=== PATIENT | male | born 1960 | race Caucasian/White ===

== ENCOUNTER 2020-03-22 16:32 | Inpatient (IN) | payer OTHER, SELFPAY ==
[2020-03-22] VITALS (24 sets, daily range): BP systolic 97–134; BP diastolic 46–104; PULSE 60–85; RESP 17–22; TEMP 36.2–36.7; O2SAT 23–99; BMI 25.6; BMI 25.0
--- NOTE | 2020-03-22 16:36 | EKG12_ITS ---
Test Reason : STEMI Blood Pressure : / mmHG Vent. Rate : 071 BPM Atrial Rate : 071 BPM P-R Int : 000 ms QRS Dur : 090 ms QT Int : 390 ms P-R-T Axes : 000 060 095 degrees QTc Int : 423 ms Normal sinus rhythm ST elevation consider inferolateral injury or acute infarct ACUTE RI / STEMI Consider right ventricular involvement in acute inferior infarct Abnormal ECG Confirmed by ARAMIS OSBORNE, FOREIGN ([id number]), editor sound LAUREN BERMEO ([id number]) on 03/23/2020 11:20:38 AM Referred By: Alfonso Taylor Confirmed By:FOREIGN SELF MD
--- NOTE | 2020-03-22 16:37 | ED.DCSUM_ITS ---
History of Present Illness Chief Complaint: Chest Pain Informant: Patient, EMS Onset: - - 30 minutes prior to EMS arrival Activity at onset: Rest Timing: Continuous Quality: Pain Location: Substernal - With radiation into both upper extremities Current Severity: Gone - Chest pain resolved, but still with mild bilateral upper extremity pain Maximum Severity: Severe Worsened By: Nothing. Not Worsened By: Breathing Relieved By: NTG - Imes 1 given by EMS Associated Symptoms: Nausea, Dyspnea. Negative for: Vomiting, Diaphoresis, Cough, Lightheadedness, Palpitations Narrative: 60-year-old smoker who does not see a physician started having chest pain at rest 30 minutes prior to EMS arrival. They sent a prehospital EKG showing an inferior STEMI, and the team was activated prehospital. CVD Risk Factors: Smoking Past Medical History - Allergies and Home Meds Allergies/Adverse Reactions: Allergies No Known Allergies Allergy (Verified 03/22/20 16:37) Past Medical History: None Lives: Spouse/ Significant Other Smoking Status: Current every day smoker Review of Systems General: Reports: Malaise. Denies: Chills, Fever, Sweats Eyes: Denies: Visual changes - bilaterally, Diplopia ENT: Denies: Rhinorrhea, Sore throat Cardiovascular: Reports: Chest pain. Denies: Palpitations Respiratory: Reports: Dyspnea. Denies: Cough, Dyspnea on exertion Gastrointestinal: Denies: Abdominal pain, Nausea, Vomiting, Diarrhea, Melena, Hematochezia Genitourinary: Denies: Dysuria, Hematuria, Frequency Musculoskeletal: Reports: Extremity Pain. Denies: Myalgias, Back pain Skin: Denies: Rash, Wounds Neurological: Denies: Headache, Weakness, Numbness Physical Exam Inital Vital Signs reviewed: Yes General: Well nourished, Well developed, No Acute Distress - Well-appearing, conversive Head: Normocephalic, Atraumatic Eyes: Perrl, EOMI ENT: Moist mucous membranes, No rhinorrhea Neck: Supple, Nontender, No lymphadenopathy Cardiovascular: Regular rate, Regular rhythm, No murmurs, Bradycardia - Borderline Respiratory: No distress, CTA bilaterally, Chest nontender Abdomen: Soft, Nontender, Nondistended, Normal bowel sounds Back: Nontender, Normal Inspection Extremities: Nontender, No edema. Negative for: Calf Tenderness Skin: Normal color, No rash Neurological: Alert, Oriented x3, Cranial nerves II-XII grossly intact, Normal Strength, Normal Sensation Psychological: Normal affect, Normal Mood Diagnostic/Tx/Re-eval - Rhythm Strip Rhythm Strip: Sinus Rhythm Rate: 55 Ectopy: None - EKG Initial EKG Interpretation: Sinus Rhythm, S-T Elevation - Inferior with anteroseptal reciprocal changes Prior: No Prior Treatment: Aspirin - Given prior to arrival by EMS, NTG SL - Given prior to arrival x1, - - Zofran given prior to arrival. Brilinta, heparin injection given in ER along with IV fluid bolus. ALCY Risk: ST Deviation >/= 0.5mm Score: 1 - Medical Decision Making Patient declined morphine for his arm pain. He was given IV fluids, Brilinta load, heparin 4000 units. Director Television [employer] ready, patient clinically and hemodynamically stable. Discussed with Dr. Taylor. Critical care time (excluding procedures): 30-74 minutes - 31 minutes, including time spent discussing with patient, consultants, arranging admission, and performing direct patient care/evaluation at the bedside ED Disposition - Plan for ED Patient: Disposition: Acute Care Hospital [facility] Diagnosis: STEMI (ST elevation myocardial infarction)
[2020-03-22 16:54] LABS: Absolute Lymphocyte Count 5.34 X10^3/uL (0.83-4.51); Absolute Neutrophil Count 5.9 X10^3/uL (2.0-7.7); Basophil# 0.07 X10^3/uL; Basophil% 0.5 % (0-1); Eosinophil# 0.32 X10^3/uL; Eosinophils% 2.5 % (0-5); Hematocrit 43.4 % (40-54); Hemoglobin 14.8 g/dL (13.0-16.5); Lymphocyte # 5.34 X10^3/ul (4.0); Lymphocyte % 41.8 % (19-41); Mean Corp Hgb Conc 34.1 g/dL (32-36); Mean Corpuscular Hgb 32.2 pg (27.0-32.0); Mean Corpuscular Volume 94.3 fL (80-94); Mean Platelet Vol. 9.6 fl (6.2-12.0); Monocyte% 8.6 % (0-10); NRBC Flagged by Analyzer 0 % (0-5); Neutrophil # 5.88 X10^3/uL (2.7-7.7); Neutrophil % 46.1 % (47-70); POSITIVE DIFFERENTIAL YES; POSITIVE MORPHOLOGY YES; Platelet Count 256 K/mm3 (150-450); RBC Distribution Width CV 12.3 % (11.6-14.6); RBC Distribution Width SD 42.5 fl (35.1-43.9); White Blood Count 12.8 K/mm3 (4.4-11.0)
[2020-03-22 17:03] LABS: Differential Indicated SCAN CRITERIA MET
[2020-03-22 17:05] LABS: Anion Gap 7 (5-15); BUN 20 mg/dL (7-18); BUN/Creat Ratio 18.7 RATIO (10-20); Calcium,Total 8.6 mg/dL (8.5-10.1); Chloride 106 mmol/L (98-107); Creatinine, Serum 1.07 mg/dL (0.70-1.30); EST Glomerular Filtration Rate 75 mL/min (>60); Est Glom Filt Rate - Afr Amer 90 mL/min (>60); Glucose 128 mg/dL (74-106); Potassium 3.3 mmol/L (3.5-5.1); Sodium Level 139 mmol/L (136-145)
--- NOTE | 2020-03-22 17:59 | ECHOD_ITS ---
Reason For Study: CAD/ASHD Procedure This was a 2D Doppler, Color Flow transthoracic echocardiogram. Exam performed portable in ICU/CCU. Left Ventricle Left ventricular systolic function is normal. Normal diastology for age. Normal LA filling pressure. The estimated ejection fraction is 55 %. Infero-Basal: Hypokinetic. Mid-inferoseptal : Hypokinetic. Right Ventricle Normal right ventricle. Normal systolic function. Atria Normal left atrium. Normal right atrium. Mitral Valve Mild (1+) mitral valve insufficiency. Tricuspid Valve Mild tricuspid valve insufficiency. Pulmonary artery systolic pressure is 35 mmHg. Normal pulmonary artery pressure. Aortic Valve Normal aortic valve. Pulmonic Valve Normal pulmonic valve. Great Vessels Normal inferior vena cava. Pericardium/Pleural No pericardial effusion. MMode/2D Measurements & Calculations LVIDd: 5.6 cm IVSd: 1.0 cm Ao root diam: 3.1 cm LVIDs: 3.5 cm LVPWd: 1.1 cm RVDd: 3.5 cm FS: 37.9 % LAV(MOD-bp): 48.6 ml LA A4 area: 17.4 cm2 LA dimension(2D): 3.8 cm LAV(MOD-bp) Indexed: 25.2 ml/m2 LAV(MOD-sp2): 47.1 ml LAV(MOD-sp4): 48.1 ml RA A4 area: 13.7 cm2 Time Measurements MV dec time: 0.18 sec Doppler Measurements & Calculations MV E max kumar: 70.7 cm/sec Lat Peak E' Kumar: 9.7 cm/sec Med Peak E' Kumar: 7.6 cm/sec MV A max kumar: 83.3 cm/sec E/E' lat: 7.3 E/E' med: 9.3 MV E/A: 0.85 Ao V2 max: 178.8 cm/sec LV V1 max: 90.9 cm/sec PA V2 max: 92.3 cm/sec Ao max P.8 mmHg LV V1 max P.3 mmHg Ao V2 mean: 114.7 cm/sec Ao mean P.9 mmHg Ao V2 VTI: 30.5 cm TR max kumar: 271.5 cm/sec TR max P.5 mmHg Interpretation Summary Left ventricular systolic function is normal. Normal diastology for age. Normal LA filling pressure The estimated ejection fraction is 55 %. Mild (1+) mitral valve insufficiency. Mild tricuspid valve insufficiency. Normal pulmonary artery pressure. Infero-Basal: Hypokinetic Mid-inferoseptal : Hypokinetic Ordering Physician: Alfonso Taylor Referring Physician: NO PCP Performed By: Jerri Elise, FLAKITO, RVT
--- NOTE | 2020-03-22 18:02 | PCM.HP.CAR ---
History of Present Illness Date of Admission: 03/22/20 Chief Complaint: Chest pain The patient is a 60 year old M 3 hours prior to admission developed severe substernal pain associated with shortness of breath. At that time he was just resting. He never had this pain happened to him before. Ambulance arrived and found him to have acute inferior wall myocardial infarct. Hemodynamically stable. He will transfer to the emergency room and subsequently to the Aquatic Physiotherapist for STEMI protocol. He denies any history of hypertension, diabetes or hyperlipidemia. He is a heavy smoker and drinks occasionally . 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 There has been no family history of early cardiovascular disease. Patient denies any drug use [] Past Medical History Allergies/Adverse Reactions: Allergies No Known Allergies Allergy (Verified 03/22/20 16:37) Home Medications: Ambulatory Orders Medication Instructions Recorded NK 03/22/20 Surgical History: no surgical history Psychiatric History: No pertinent psych hx Lives: Spouse/ Significant Other Smoking Status: Current every day smoker Alcohol: Occasional Drugs: None Review of Systems - Review of Systems General: Denies: Fever, Night Sweats, Fatigue HEENT: Denies: Vision Change Cardiovascular: Denies: Chest Discomfort, Shortness of Breath, Orthopnea, PND, Peripheral Edema, Palpitations, Lightheadedness, Dizziness, Near Syncope, Syncope Respiratory: Denies: Cough, Sputum Production, Hemoptysis Gastrointestinal: Denies: Hematemesis, Hematochezia, Melena Genitourinary: Denies: Dysuria, Hematuria Muscoloskeletal: Denies: Myalgias Skin: Denies: Rash Psychiatric: Denies: Anxiety, Depression Endocrine: Denies: Heat Intolerance Hematologic/ Lymphatic: Denies: Lymph Node Enlargement Objective: Vital Signs Temp Pulse Resp BP Pulse Ox 97.2 F L 62 17 120/80 98 03/22/20 16:44 03/22/20 16:44 03/22/20 16:44 03/22/20 16:44 03/22/20 16:44 Oxygen Flow Rate (L/min) 2 Oxygen Delivery Method Room Air Weight: 173 lb 8.061 oz Body Mass Index (BMI) 25.6 General: Healthy Appearing, - - Complaint of substernal chest pain 10 out of 10 HEENT: PERRL, EOMI, Sclera Non Icteric Neck: Supple Lungs: Clear to auscultation Cardiovascular: Regular Rhythm, Normal S1, Normal S2, No Murmurs, No Rubs, No Gallops Vascular: No Carotid Bruits, Normal Femoral Pulses, Normal Radial Pulses, Normal Dorsalis Pedal Pulse, Normal Posterior Tibial Pulses Abdomen: Bowel Sounds Present, Soft, Non Tender, No HSM, No Organomegaly Extremities: No edema Musculoskeletal: No Erythema, No Warmth, No Tenderness Skin: No Rashes Lymphatic: No Lymph Node Enlargement Neurological: No Focal Motor or Sensory Deficit Psych/Mental Status: Appropriate, Normal Affect VTE Information - Inpt Only VTE Present on Admission: No - Patient will undergo cardiac catheterization VTE Mechan Device Prophylaxis: SCD's - none VTE Pharm Prophylaxis ordered?: No Reason prophylaxis not ordered:: Treatment Not Indicated 03/22/20 16:35: WBC 12.8 H, RBC 4.60, Hgb 14.8, Hct 43.4, MCV 94.3 H, MCH 32.2 H, MCHC 34.1, Plt Count 256, MPV 9.6, Immature Gran % (Auto) 0.500, Neut % (Auto) 46.1 L, Lymph % (Auto) 41.8 H, Lander % (Auto) 8.6, Eos % (Auto) 2.5, Baso % (Auto) 0.5, Absolute Neuts (auto) 5.9, Nucleated RBC % 0 03/22/20 16:35: PT Cancelled, INR Cancelled, APTT Cancelled 03/22/20 16:35: Sodium 139, Potassium 3.3 L, Chloride 106, Carbon Dioxide 26.0, Anion Gap 7, BUN 20 H, Creatinine 1.07, Est GFR (MDRD) Af Amer 90, Est GFR (MDRD) Non-Af 75, BUN/Creatinine Ratio 18.7, Glucose 128 H, Calcium 8.6, Troponin I 0.022 Rhythm: Normal sinus rhythm EKG: Acute inferior wall myocardial infarct ECHO: Stress Test: Cardiac Cath: See dictated note PCI: See dictated note CT Surgery: Holter monitor: EPS: PPM: CXR: Pending Chest CT Scan: Assessment/Plan #1 acute inferior wall myocardial infarct, patient is a suitable candidate for STEMI protocol. The risk has been explained to the patient. He has signed the consent. #2 history of heavy cigarette consumption, will encourage him to quit smoking, nicotine cessation therapy as needed
[2020-03-22 18:15] LABS: Differential Comment SCANNED; Platelet Estimate ADEQUATE (ADEQ); Red Cell Morphology NORM C+C NORMAL (NORM C&C)
[2020-03-22 18:16] LABS: ACT Activated Clotting Time 230 sec (74-137)
--- NOTE | 2020-03-22 18:20 | CL.PCI_ITS ---
PCI Cardiac Cath Report PCI Report: Procedure: March 22, 2020 Clinical history: 60-year-old white male with acute inferior wall myocardial in farky Indication: Acute inferior wall myocardial infarct with functional class IV angina Heart failure: None Stress/imaging: No CAD presentation: Acute inferior wall myocardial infarct with functional class IV angina Summary: #1 successful stenting of the proximal and mid right coronary artery, occluded proximal right coronary artery with LACY 0 flow. Post PCI, residual stenosis was 0%. LACY-3 flow was reestablished. Type C lesion #2 minimally impaired left ventricular systolic wall motion #3 moderate ostial major diagonal branch stenosis #4 patient will undergo lifestyle modification. He will be on aspirin, Effient, statin and low-dose beta-evelyn. Will be encouraged to quit smoking Procedure Details The risks, benefits, complications, treatment options, and expected outcomes were discussed with the patient. The patient and/or family concurred with the proposed plan, giving informed consent. Patient was brought to the labor training manager after IV hydration . Patient was further sedated with IV conscious sedation. Subject was prepped and draped in the usual manner. Using the modified Seldinger access technique, a 6 Wolof sheath was placed in the right radial. Standard diagnostic catheters were used. Exchanges were performed over J-wire. At the end of the procedures, all catheters and sheaths were removed and bleeding was stopped with closure device using TR band Findings: Left ventriculogram: Left ventricle was normal in size with mild inferior wall hypokinesis Moderate Sedation: No sedation was given Hemodynamics: 100/70, 70/min with frequent PAC, left ventricular end-diastolic pressure was 15, there was no gradient seen across the aortic valve. Ejection fraction was 55% Comments: Normal ejection fraction and left ventricular end-diastolic pressure Coronary Anatomy: Right dominant Left Main : Normal LAD: Normal in caliber and reaches the apex for short distance. It was free of significant disease. First major diagonal branch had a 50% ostial stenosis otherwise he was free of significant disease Diagonals : As stated above Circumflex : Left circumflex was a normal sized vessel and free of significant disease Major Obtuse Marginals : 2 obtuse marginal branches were normal in caliber and free of significant disease Right Coronary Artery: Right coronary artery was occluded proximally with no sxey-dl-utyna collateral. After successful PCI of the proximal to mid right coronary artery, the distal right coronary artery were large in caliber and free of significant disease Intervention Lesion: Stenting of the occluded proximal right coronary artery Guiding Catheter used 6 Wolof AR-1 Guide Wire used: Run-through balloon used: Emerge: 2.0x12, 2.5x20 stents Used: Synergy: 3.5x24, 3.5x12 Procedure in detail: The guidewire had no difficulty passing down the distal right coronary artery. The occluded proximal right coronary artery was dilated with a 2.0 at 20 therese. This was followed by the 2.5 balloon at 18 therese. The long stent was then deployed at 16 therese. The shorter stent was then deployed proximal to it at 16 therese. Residual stenosis was 0%. LACY-3 flow was reestablished Estimated Blood Loss: Minimal} Complications: There was transient bradycardia and hypotension responded to IV normal saline, atropine and Brian-Synephrine. Patient has been sent to the intensive care unit on low-dose IV dopamine. Patient chest pain has disappeared upon discharge from the cardiac catheterization laboratory in stable condition Disposition condition: Stable
--- NOTE | 2020-03-22 18:31 | EKG12_ITS ---
Test Reason : AM EKG Blood Pressure : / mmHG Vent. Rate : 062 BPM Atrial Rate : 062 BPM P-R Int : 162 ms QRS Dur : 080 ms QT Int : 398 ms P-R-T Axes : 053 -12 038 degrees QTc Int : 403 ms Normal sinus rhythm Abnormal ECG When compared with ECG of 22-MAR-2020 18:05, MANUAL COMPARISON REQUIRED, DATA IS UNCONFIRMED Confirmed by ARAMIS OSBORNE, FOREIGN ([id number]), editor index LAUREN BERMEO ([id number]) on 03/27/2020 9:35:20 AM Referred By: Alfonso Taylor Confirmed By:FOREIGN SELF MD
--- NOTE | 2020-03-22 18:40 | PCM.HP.STD ---
History of Present Illness Date of Admission: 03/22/20 Chief Complaint: Chest pain The patient is a 60 year old M with a PMH as below presents to the hospital with substernal chest pain with shortness of breath. When it occurred he was resting after exerting himself. [place] he made a trip down the hill to bury some garbage and then when he came back to the house he found some turkey bone that he had the [place] so he walked back down the hill and dug another hole and buried the turkey bone and then he walked back up the hill to the house and he took his boots off and he said that he felt hot and then he sat on the couch and that is when he developed the chest pain. He called 911 and when EMS arrived they did an EKG which demonstrated an acute inferior wall NV. He was hemodynamically stable and a STEMI alert was called and he was taken straight to the Bottling Line Attendant. He had a stent placed at the proximal right coronary artery and his chest pain has resolved post stenting. In the ER his troponin was unremarkable. He denies any medical history simply because he has not seen a doctor in 30 years. Past Medical History Allergies No Known Allergies Allergy (Verified 03/22/20 16:37) Home Medications: Ambulatory Orders Medication Instructions Recorded NK 03/22/20 Surgical History: no surgical history Psychiatric History: No pertinent psych hx Lives: Spouse/ Significant Other Smoking Status: Current every day smoker Tobacco Use: Cigarettes Alcohol: Occasional Drugs: None - *Family History Maternal History Items: - - Suicide Paternal History Items: Cancer Review of Systems Constitutional: Denies: Chills, Fever, Weight Change HEENT: Denies: Head Aches, Sinus Congestion, Sinus Drainage Cardiovascular: Reports: Chest Pain. Denies: Palpitations Respiratory: Reports: Shortness of Breath. Denies: Cough, Shortness of breath at rest, Sputum production Gastrointestinal: Denies: Abdominal Pain, Nausea, Vomiting Genitourinary: Denies: Dysuria Musculoskeletal: Denies: Joint Pain, Joint Tenderness Skin: Denies: Rash, Wounds Neurological: Denies: Numbness, Tingling, Focal weakness Psychiatric: Denies: Anxiety, Depression, Homicidal Ideations, Suicidal Ideations Hematologic/ Lymphatic: Denies: Easy Bruising, Easy Bleeding VTE Information - Inpt Only VTE Present on Admission: No - Physical Exam Vitals/I&O's: Vital Signs Temp Pulse Resp BP Pulse Ox 97.2 F L 77 17 120/80 98 03/22/20 16:44 03/22/20 18:05 03/22/20 16:44 03/22/20 16:44 03/22/20 16:44 Oxygen Flow Rate (L/min) 2 Oxygen Delivery Method Room Air Weight: 173 lb 8.061 oz Body Mass Index (BMI) 25.6 General: Alert, Oriented x3, Cooperative, No apparent distress HEENT: Atraumatic, PERRLA, EOMI, Normocephalic Oral: Moist Mucosa Neck: Supple, No JVD Lungs: Clear to auscultation, Normal air movement, No rhonchi, No wheeze, No rales Cardiovascular: Regular rate, Regular Rhythm, Normal S1, Normal S2, No murmurs Abdomen: Soft, Non Tender, Non-Distended, No Hepato-splenomegaly Extremities: No edema, Capillary Refill Less than 3 Seconds Skin: No rashes, No breakdown Neurological: Neuro grossly intact, Sensory exam intact to light touch and pain Psych/Mental Status: Normal Affect, Appropriate Laboratory Results 03/22/20 16:35: WBC 12.8 H, RBC 4.60, Hgb 14.8, Hct 43.4, MCV 94.3 H, MCH 32.2 H, MCHC 34.1, RDW Std Deviation 42.5, RDW Coeff of Marcos 12.3, Plt Count 256, MPV 9.6, Immature Gran % (Auto) 0.500, Neut % (Auto) 46.1 L, Lymph % (Auto) 41.8 H, Garvin % (Auto) 8.6, Eos % (Auto) 2.5, Baso % (Auto) 0.5, Absolute Neuts (auto) 5.9, Absolute Lymphs (auto) 5.34 H, Nucleated RBC % 0, Differential Comment SCANNED, Diff Path Review May foll, Platelet Estimate ADEQUATE, RBC Morphology NORM C+C 03/22/20 16:35: PT Cancelled, INR Cancelled, APTT Cancelled 03/22/20 16:35: Sodium 139, Potassium 3.3 L, Chloride 106, Carbon Dioxide 26.0, Anion Gap 7, BUN 20 H, Creatinine 1.07, Estim Creat Clear Calc 72.50, Est GFR (MDRD) Af Amer 90, Est GFR (MDRD) Non-Af 75, BUN/Creatinine Ratio 18.7, Glucose 128 H, Calcium 8.6, Troponin I 0.022 03/22/20 17:12: Activated Clotting Time 230 H Current Medications Aspirin (Aspirin E.C. 81 Mg Tablet) 81 mg PO DAILY@0800 NUSRAT Atorvastatin Calcium (Atorvastatin Calcium 40 Mg Tablet) 40 mg PO QHS NUSRAT Atropine Sulfate (Atropine Sulfate 1 Mg/10 Ml Syringe) 0.5 mg IV UD PRN PRN Reason: HR <50 bpm Carvedilol (Carvedilol 3.125 Mg Tablet) 3.125 mg PO BID NUSRAT Heparin Sodium (Beef Lung) (Heparin Lock 500 Unit/5 Ml In 10 Ml Syringe) 500 unit IV UD PRN PRN Reason: HEPARIN FLUSH Sodium Chloride () 1,000 mls @ 0 mls/hr IV .Q0M NUSRAT Stop: 03/23/20 03:56 Labetalol HCl (Labetalol (Prefilled) 20 Mg/4 Ml) 5 mg IV X1 PRN PRN Reason: SBP >160 when pulling sheath Stop: 03/24/20 17:53 Prasugrel (Prasugrel Hydrochloride 10 Mg Tablet) 10 mg PO DAILY [facility] Sodium Chloride (0.9% Normal Saline 500 Ml Iv.Soln.) 500 ml IV BOLUS PRN PRN Reason: VASO-VAGAL PROTOCOL Assessment/Plan All Active Problems (This Medical Record has been edited. Action required.) STEMI (ST elevation myocardial infarction) (Acute) 1. Acute inferior STEMI status post stenting -Successful stenting of his right proximal coronary artery -Continue with aspirin, Lipitor, Coreg, Effient -Appreciate cardiology assistance in management -We will obtain a lipid panel for further evaluation DVT: SCDs Inpatient E&M: 28328 Init Hosp L2
[2020-03-22] MEDS: DOPamine IV 800 MG/250 ML IV.SOLN. 7.4 MG CONT INF (19:00)
[2020-03-22 20:49] LABS: Hemoglobin A1c 4.8 % (3.8-5.6)
[2020-03-22 21:18] LABS: Cholesterol 196 mg/dL (200); High Density Lipoprotein 31 mg/dL; Triglycerides 130 mg/dL; Very Low Density Lipoprotein 26 mg/dL (5-40)
[2020-03-22] MEDS: Atorvastatin Calcium 40 MG Tablet PO (21:22)
[2020-03-22] MEDS: Carvedilol 3.125 MG TABLET PO (21:22)
[2020-03-22] MEDS: Ondansetron 4 MG/2 ML Vial IV (23:33)
[2020-03-23] VITALS (28 sets, daily range): BP systolic 89–121; BP diastolic 53–71; PULSE 58–71; RESP 10–20; TEMP 36.3–36.6; O2SAT 94–98; BMI 25.9
[2020-03-23] MEDS: Amiodarone 360 MG in Dextrose 5% Viaflo Bag 192.8 ML 33.3 MG CONT INF (00:12)
[2020-03-23 00:15] LABS: Magnesium 2.1 mg/dL (1.6-2.6); Potassium 4.1 mmol/L (3.5-5.1)
[2020-03-23 03:54] LABS: Hematocrit 43.9 % (40-54); Hemoglobin 15.6 g/dL (13.0-16.5); Mean Corp Hgb Conc 35.5 g/dL (32-36); Mean Corpuscular Hgb 32.6 pg (27.0-32.0); Mean Corpuscular Volume 91.8 fL (80-94); Mean Platelet Vol. 9.4 fl (6.2-12.0); Platelet Count 234 K/mm3 (150-450); RBC Distribution Width SD 40.2 fl (35.1-43.9); Red Blood Count 4.78 M/mm3 (4.6-6.2); White Blood Count 12.7 K/mm3 (4.4-11.0)
[2020-03-23 04:22] LABS: ALB/GLOB Ratio 1.2 RATIO (0.9-2.4); AST(SGOT) 308 U/L (15-37); Alanine Aminotransfer ALT/SGPT 64 U/L (16-61); Alkaline Phosphatase 91 U/L (45-117); Anion Gap 6 (5-15); BUN 17 mg/dL (7-18); BUN/Creat Ratio 21.7 RATIO (10-20); Calcium,Total 8.8 mg/dL (8.5-10.1); Chloride 104 mmol/L (98-107); Creatinine, Serum 0.78 mg/dL (0.70-1.30); EST Glomerular Filtration Rate 107 mL/min (>60); Est Glom Filt Rate - Afr Amer 129 mL/min (>60); Estimated Creatinine Clearance 99.45 ml/min; Globulin 3.3 g/dL (2.2-4.2); Glucose 126 mg/dL (74-106); Potassium 3.7 mmol/L (3.5-5.1); Protein, Total 7.3 g/dL (6.4-8.2); Sodium Level 138 mmol/L (136-145)
[2020-03-23] MEDS: Amiodarone 360 MG in Dextrose 5% Viaflo Bag 192.8 ML 16.7 MG CONT INF (06:42)
--- NOTE | 2020-03-23 07:38 | PCM.PN.HOSP ---
Reason for Visit: Follow-up on Acute STEMI Subjective: Patient was seen and examined. He denies any chest pain, dizziness. He had a transient hypotension and bradycardia as well as frequent PVCs. His blood pressure improved on dopamine. He has been weaned off dopamine. He remains on amiodarone drip. He has been transitioned to oral amiodarone Objective: Physical exam: General: Alert, Oriented x3, Cooperative, No apparent distress HEENT: Atraumatic, PERRLA, EOMI, Normocephalic Oral: Moist Mucosa Neck: Supple, No JVD Lungs: Clear to auscultation, Normal air movement, No rhonchi, No wheeze, No rales Cardiovascular: Regular rate, Regular Rhythm, Normal S1, Normal S2, No murmurs Abdomen: Soft, Non Tender, Non-Distended, No Hepato-splenomegaly Extremities: No edema, Capillary Refill Less than 3 Seconds Skin: No rashes, No breakdown Neurological: Neuro grossly intact, Sensory exam intact to light touch and pain Psych/Mental Status: Normal Affect, Appropriate Vitals/I&O's: Vital Signs Temp Pulse Resp BP Pulse Ox 97.8 F 62 11 L 109/64 96 03/23/20 04:00 03/23/20 06:00 03/23/20 06:00 03/23/20 06:00 03/23/20 06:00 Oxygen Flow Rate (L/min) 2 Oxygen Delivery Method Room Air Weight: 77.9 kg Body Mass Index (BMI) 25.6 Intake and Output for Last 24 Hours 03/21/20 03/22/20 03/23/20 23:59 23:59 23:59 Intake Total 37.02 / 212.02 547.38 / 547.38 Output Total 1500 / 1500 Balance 37.02 / -787.98 -952.62 / -952.62 Laboratory Results 03/22/20 16:35: WBC 12.8 H, RBC 4.60, Hgb 14.8, Hct 43.4, MCV 94.3 H, MCH 32.2 H, MCHC 34.1, RDW Std Deviation 42.5, RDW Coeff of Marcos 12.3, Plt Count 256, MPV 9.6, Immature Gran % (Auto) 0.500, Neut % (Auto) 46.1 L, Lymph % (Auto) 41.8 H, [place] % (Auto) 8.6, Eos % (Auto) 2.5, Baso % (Auto) 0.5, Absolute Neuts (auto) 5.9, Absolute Lymphs (auto) 5.34 H, Nucleated RBC % 0, Differential Comment SCANNED, Diff Path Review August, Platelet Estimate ADEQUATE, RBC Morphology NORM C+C 03/22/20 16:35: PT Cancelled, INR Cancelled, APTT Cancelled 03/22/20 16:35: Sodium 139, Potassium 3.3 L, Chloride 106, Carbon Dioxide 26.0, Anion Gap 7, BUN 20 H, Creatinine 1.07, Estim Creat Clear Calc 72.50, Est GFR (MDRD) Af Amer 90, Est GFR (MDRD) Non-Af 75, BUN/Creatinine Ratio 18.7, Glucose 128 H, Calcium 8.6, Troponin I 0.022 03/22/20 17:12: Activated Clotting Time 230 H 03/22/20 20:15: Troponin I 67.600 H*, Triglycerides 130, Cholesterol 196, LDL Cholesterol 139 H, VLDL Cholesterol 26, HDL Cholesterol 31 L 03/22/20 20:15: Hemoglobin A1c 4.8 03/22/20 23:45: Potassium 4.1, Magnesium 2.1 03/23/20 03:47: WBC 12.7 H, RBC 4.78, Hgb 15.6, Hct 43.9, MCV 91.8, MCH 32.6 H, MCHC 35.5, RDW Std Deviation 40.2, RDW Coeff of Marcos 12.0, Plt Count 234, MPV 9.4 03/23/20 03:47: Sodium 138, Potassium 3.7, Chloride 104, Carbon Dioxide 28.0, Anion Gap 6, BUN 17, Creatinine 0.78, Estim Creat Clear Calc 99.45, Est GFR (MDRD) Af Amer 129, Est GFR (MDRD) Non-Af 107, BUN/Creatinine Ratio 21.7 H, Glucose 126 H, Calcium 8.8, Total Bilirubin 0.60, AST 308 H, ALT 64 H, Alkaline Phosphatase 91, Total Protein 7.3, Albumin 4.0, Globulin 3.3, Albumin/Globulin Ratio 1.2 Current Medications Aspirin (Aspirin E.C. 81 Mg Tablet) 81 mg PO DAILY@0800 NUSRAT Atorvastatin Calcium (Atorvastatin Calcium 40 Mg Tablet) 40 mg PO QHS [facility] Last Admin: 03/22/20 21:22 Dose: 40 mg Documented by: Atropine Sulfate (Atropine Sulfate 1 Mg/10 Ml Syringe) 0.5 mg IV UD PRN PRN Reason: HR <50 bpm Carvedilol (Carvedilol 3.125 Mg Tablet) 3.125 mg PO BID [facility] Last Admin: 03/22/20 21:22 Dose: 3.125 mg Documented by: Heparin Sodium (Beef Lung) (Heparin Lock 500 Unit/5 Ml In 10 Ml Syringe) 500 unit IV UD PRN PRN Reason: HEPARIN FLUSH Dopamine HCl/Dextrose () 800 mg in 250 mls @ 7.378 mls/hr CONT INF .[id number] [facility]; Protocol Last Titration: 03/23/20 06:00 Dose: 7.5 mcg/kg/min, 11.1 mls/hr Documented by: Amiodarone HCl 360 mg/ (Dextrose) 200 mls @ 16.667 mls/hr CONT INF .Q12H [facility] Stop: 03/23/20 23:47 Last Admin: 03/23/20 06:42 Dose: 0.5 mg/min, 16.7 mls/hr Documented by: Labetalol HCl (Labetalol (Prefilled) 20 Mg/4 Ml) 5 mg IV X1 PRN PRN Reason: SBP >160 when pulling sheath Stop: 03/24/20 17:53 Nicotine (Nicotine 21 Mg Patch) 21 mg TD DAILY [facility] Ondansetron HCl (Ondansetron 4 Mg/2 Ml Vial) 4 mg IV Q6H PRN PRN PRN Reason: NAUSEA/VOMITING Last Admin: 03/22/20 23:33 Dose: 4 mg Documented by: Prasugrel (Prasugrel Hydrochloride 10 Mg Tablet) 10 mg PO DAILY [facility] Sodium Chloride (0.9% Normal Saline 500 Ml Iv.Soln.) 500 ml IV BOLUS PRN PRN Reason: VASO-VAGAL PROTOCOL STROKE Vital Signs/Narrative: Vital Signs Temp Pulse Resp BP Pulse Ox 03/23/20 06:00 62 11 L 109/64 96 03/23/20 05:00 62 13 114/65 95 03/23/20 04:00 97.8 F 62 15 115/67 95 Medical Necessity - Tobacco Use Smoking Status: Current every day smoker Tobacco Use: Cigarettes Assessment/Plan All Active Problems (This Medical Record has been edited. Action required.) STEMI (ST elevation myocardial infarction) (Acute) 1. Acute STEMI status post 2 stents to the mid and proximal RCA, stable Total cholesterol is 196, triglyceride 130, LDL is 139 Continue on aspirin, prasugrel, statin, carvedilol 2. Transient hypotension, resolved, patient is off dopamine, will continue to monitor 3. Frequent PVC, magnesium is 2.1, continue on carvedilol 4. Hypokalemia, resolved, continue to monitor 5. Elevated liver enzymes, unclear etiology, likely related to transient shock liver Liver enzymes in a.m. specially was on statins 6. Nicotine dependence, on replacement 7. DVT PPx- Lovenox SC Inpatient E&M: 74884 [facility] Hosp L3
[2020-03-23] MEDS: Carvedilol 3.125 MG TABLET PO ×2 (08:31→21:51)
[2020-03-23] MEDS: Ondansetron 4 MG/2 ML Vial IV (08:31)
[2020-03-23] MEDS: Aspirin E.C. 81 MG Tablet PO (08:31)
--- NOTE | 2020-03-23 10:00 | EKG12_ITS ---
Test Reason : Blood Pressure : / mmHG Vent. Rate : 073 BPM Atrial Rate : 073 BPM P-R Int : 160 ms QRS Dur : 084 ms QT Int : 388 ms P-R-T Axes : 027 021 063 degrees QTc Int : 427 ms Normal sinus rhythm Normal ECG Inferior Ischemia When compared with ECG of 22-MAR-2020 16:37, MANUAL COMPARISON REQUIRED, DATA IS UNCONFIRMED Confirmed by ARAMIS OSBORNE, FOREIGN ([id number]), tape editor LAUREN BERMEO ([id number]) on 03/27/2020 9:36:09 AM Referred By: Alfonso Taylor Confirmed By:FOREIGN SELF MD
--- NOTE | 2020-03-23 10:15 | CASEMGMT ---
RN CM DOPSTER CM to room to meet with patient for initial transition planning/care coordination assessment. SHWETA GALINDO introduced self and role at [facility]. Pt voices understanding and consents to assessment at this time. Pt resting in bed in no distress at this time. Pt is A/O at this time and answers all questions appropriately. Care providers, pharmacy, and demographics verified/updated at this time. PCP: No PCP. Provided w/list of local PCP's. Specialists: None Preferred [facility]acy: [facility] Insurance: Pt states has insurance through his employer but does not remember name of Insurance Co. Prescription Benefit: Yes Living Will/HPOA: States does not have LW or HCPOA . Interested in more information and interested in completing paperwork. Pt made aware SW may not be available to meet with him today but that she would try. Provided information on advanced directives and given Social Service rac card with number to call if chooses in the future to utilize [facility] social work for advanced directive completion. Educated patient that, if patient so chooses, can come back to [facility] and meet with a SW as an outpatient to complete health care advanced directives. Patient expresses understanding. Pt would want his sig other, Debby to be his POA. LNOK: Son, Vitor (32 yr-old). Son, Robe (17 yr-old). Sig other, Debbyshila Ricardo. Living Arrangements: Lives w, sig other, Debby. Robe lives with them. They live in a ranch-style home w/2 steps to enter Transportation: Pt states drives self and states no transportation concerns at this time. Debby will drive him home @ d/c DME: Denies using any DME and denies needs. HHC/SNF: No history of either and no needs identified. Pt wishes to return home and states has no concerns with going home at time of discharge. CM to follow for any discharge planning/needs. Pt voices no concerns/needs at this time. Advised pt to ask for CM if any questions/concerns/needs arise. Voices understanding. PLAN: Home w/family Pt had STEMI/PCI. Anticipate will d/c home on Effient. Devika ZHENG RN, CM
--- NOTE | 2020-03-23 11:10 | PN.CARD_ITS ---
Subjectve: Doing well with no chest pain. Frequent PVC with unsustained ventricular tachycardia last night responded to electrolytes replacement and IV amiodarone. Patient still on IV dopamine. Blood pressure has been normal. Heart rates in the 60s Objective: Vital Signs Temp Pulse Resp BP Pulse Ox 97.5 F L 63 18 113/56 L 97 03/23/20 11:00 03/23/20 11:00 03/23/20 11:00 03/23/20 11:00 03/23/20 10:00 Oxygen Flow Rate (L/min) 2 Oxygen Delivery Method Room Air Weight: 171 lb 11.841 oz Body Mass Index (BMI) 25.6 Intake and Output for Last 24 Hours 03/21/20 03/22/20 03/23/20 23:59 23:59 23:59 Intake Total 37.02 / 212.02 547.38 / 547.38 Output Total 1500 / 1500 Balance 37.02 / -787.98 -952.62 / -952.62 General: Healthy Appearing, Awake, Alert, Oriented x 3, No Acute Distress Neck: Supple Lungs: Clear to auscultation Cardiovascular: Regular Rhythm, Normal S1, Normal S2, No Murmurs, No Rubs, No Gallops Vascular: No Carotid Bruits, Normal Radial Pulses Abdomen: Bowel Sounds Present, Soft, Non Tender, No HSM, No Organomegaly Neurological: No Focal Motor or Sensory Deficit 03/22/20 16:35: WBC 12.8 H, RBC 4.60, Hgb 14.8, Hct 43.4, MCV 94.3 H, MCH 32.2 H , MCHC 34.1, Plt Count 256, MPV 9.6, Immature Gran % (Auto) 0.500, Neut % (Auto) 46.1 L, Lymph % (Auto) 41.8 H, [place] % (Auto) 8.6, Eos % (Auto) 2.5, Baso % (Auto) 0.5, Absolute Neuts (auto) 5.9, Nucleated RBC % 0 03/22/20 16:35: PT Cancelled, INR Cancelled, APTT Cancelled 03/22/20 16:35: Sodium 139, Potassium 3.3 L, Chloride 106, Carbon Dioxide 26.0, Anion Gap 7, BUN 20 H, Creatinine 1.07, Est GFR (MDRD) Af Amer 90, Est GFR (MDRD) Non-Af 75, BUN/Creatinine Ratio 18.7, Glucose 128 H, Calcium 8.6, Troponin I 0.022 03/22/20 20:15: Troponin I 67.600 H*, Triglycerides 130, Cholesterol 196, LDL Cholesterol 139 H, VLDL Cholesterol 26, HDL Cholesterol 31 L 03/22/20 20:15: Hemoglobin A1c 4.8 03/22/20 23:45: Potassium 4.1, Magnesium 2.1 03/23/20 03:47: WBC 12.7 H, RBC 4.78, Hgb 15.6, Hct 43.9, MCV 91.8, MCH 32.6 H, MCHC 35.5, Plt Count 234, MPV 9.4 03/23/20 03:47: Sodium 138, Potassium 3.7, Chloride 104, Carbon Dioxide 28.0, Anion Gap 6, BUN 17, Creatinine 0.78, Est GFR (MDRD) Af Amer 129, Est GFR (MDRD) Non-Af 107, BUN/Creatinine Ratio 21.7 H, Glucose 126 H, Calcium 8.8, Total Bilirubin 0.60 Rhythm: EKG: ECHO: Stress Test: Cardiac Cath: PCI: CT Surgery: Holter monitor: EPS: PPM: CXR: Chest CT Scan: Medical Necessity - Tobacco Use Smoking Status: Current every day smoker Tobacco Use: Cigarettes Assessment/Plan #1 acute inferior wall myocardial infarct, successful stenting of the proximal mid right coronary artery. There was transient bradycardia and hypotension responded to IV fluid, atropine and IV vasopressor. Will taper off IV dopamine. #2 history of heavy cigarette consumption, will encourage him to quit smoking, nicotine cessation therapy as needed #3 frequent PVCs and nonsustained ventricular tachycardia last night. This has been controlled with IV amiodarone. We will switch him over to p.o. amiodarone
--- NOTE | 2020-03-23 13:16 | CASEMGMT ---
As per CM, pt would like to complete LW/POA forms. SW attempted to meet w/pt, he is sleeping at this time. SW will check back as time allows to speak w/pt about LW/POA forms. ANDRIA Padilla
[2020-03-23 14:29] LABS: Pathologist Review Reviewed
[2020-03-23] MEDS: Amiodarone 200 MG Tablet PO (19:22)
[2020-03-23] MEDS: Atorvastatin Calcium 40 MG Tablet PO (21:42)
[2020-03-23] MEDS: Enoxaparin 40 MG/0.4 ML Syringe SC (21:42)
[2020-03-24] VITALS (7 sets, daily range): BP systolic 88–117; BP diastolic 55–73; PULSE 56–64; RESP 16; TEMP 36.2–36.6; O2SAT 95–100
[2020-03-24] MEDS: Enoxaparin 40 MG/0.4 ML Syringe SC (06:01)
[2020-03-24 07:08] LABS: ALB/GLOB Ratio 1.1 RATIO (0.9-2.4); AST(SGOT) 99 U/L (15-37); Alanine Aminotransfer ALT/SGPT 46 U/L (16-61); Albumin, Serum 3.5 g/dL (3.2-5.0); Alkaline Phosphatase 73 U/L (45-117); Anion Gap 3 (5-15); BUN 14 mg/dL (7-18); BUN/Creat Ratio 19.3 RATIO (10-20); Calcium,Total 8.5 mg/dL (8.5-10.1); Chloride 110 mmol/L (98-107); Creatinine, Serum 0.73 mg/dL (0.70-1.30); EST Glomerular Filtration Rate 117 mL/min (>60); Est Glom Filt Rate - Afr Amer 141 mL/min (>60); Estimated Creatinine Clearance 106.27 ml/min; Globulin 3.2 g/dL (2.2-4.2); Glucose 81 mg/dL (74-106); Protein, Total 6.7 g/dL (6.4-8.2); Sodium Level 139 mmol/L (136-145)
[2020-03-24] MEDS: Amiodarone 200 MG Tablet PO (08:37)
[2020-03-24] MEDS: Aspirin E.C. 81 MG Tablet PO (08:37)
[2020-03-24] MEDS: Carvedilol 3.125 MG TABLET PO (08:37)
[2020-03-24 08:41] LABS: Absolute Lymphocyte Count 2.86 X10^3/uL (0.83-4.51); Absolute Neutrophil Count 4.5 X10^3/uL (2.0-7.7); Basophil# 0.03 X10^3/uL; Basophil% 0.4 % (0-1); Eosinophil# 0.15 X10^3/uL; Eosinophils% 1.8 % (0-5); Hematocrit 42.3 % (40-54); Hemoglobin 13.8 g/dL (13.0-16.5); Lymphocyte # 2.86 X10^3/ul (4.0); Lymphocyte % 34.3 % (19-41); Mean Corp Hgb Conc 32.6 g/dL (32-36); Mean Corpuscular Hgb 31.2 pg (27.0-32.0); Mean Corpuscular Volume 95.7 fL (80-94); Mean Platelet Vol. 10.2 fl (6.2-12.0); Monocyte# 0.75 X10^3/uL; NRBC Flagged by Analyzer 0 % (0-5); Neutrophil # 4.52 X10^3/uL (2.7-7.7); Neutrophil % 54.1 % (47-70); Platelet Count 205 K/mm3 (150-450); RBC Distribution Width CV 12.6 % (11.6-14.6); RBC Distribution Width SD 44.6 fl (35.1-43.9); Red Blood Count 4.42 M/mm3 (4.6-6.2); White Blood Count 8.3 K/mm3 (4.4-11.0)
--- NOTE | 2020-03-24 09:59 | PCM.PN.CARD ---
Subjectve: Patient underwent successful stenting of the proximal mid right coronary artery after inferior wall myocardial infarct. At the moment patient does not have any chest pain. Hemodynamically very stable. Liver enzyme today is normal. He ambulates inside the room with no difficulty. Objective: Vital Signs Temp Pulse Resp BP Pulse Ox 97.8 F 61 16 117/73 96 03/24/20 08:28 03/24/20 08:28 03/24/20 08:28 03/24/20 08:28 03/24/20 08:28 Oxygen Flow Rate (L/min) 0 Oxygen Delivery Method Room Air Weight: 175 lb 4.28 oz Body Mass Index (BMI) 25.9 Intake and Output for Last 24 Hours 03/22/20 03/23/20 03/24/20 23:59 23:59 23:59 Intake Total 37.02 / 212.02 1434.33 / 1674.33 240 / 240 Output Total 1950 / 1950 Balance 37.02 / -787.98 -515.67 / -275.67 240 / 240 General: Healthy Appearing, No Acute Distress Neck: Supple Lungs: Clear to auscultation Cardiovascular: Regular Rhythm, Normal S1, Normal S2, No Murmurs, No Rubs, No Gallops Abdomen: Bowel Sounds Present, Soft, Non Tender, No HSM, No Organomegaly Neurological: No Focal Motor or Sensory Deficit 03/24/20 06:24: WBC 8.3, RBC 4.42 L, Hgb 13.8, Hct 42.3, MCV 95.7 H, MCH 31.2, MCHC 32.6 D, Plt Count 205, MPV 10.2, Immature Gran % (Auto) 0.400, Neut % (Auto) 54.1, Lymph % (Auto) 34.3, [place] % (Auto) 9.0, Eos % (Auto) 1.8, Baso % (Auto) 0.4, Absolute Neuts (auto) 4.5, Nucleated RBC % 0 03/24/20 06:24: Sodium 139, Potassium 4.0, Chloride 110 H, Carbon Dioxide 26.0, Anion Gap 3 L, BUN 14, Creatinine 0.73, Est GFR (MDRD) Af Amer 141, Est GFR (MDRD) Non-Af 117, BUN/Creatinine Ratio 19.3, Glucose 81, Calcium 8.5, Total Bilirubin 0.30 Rhythm: EKG: ECHO: Stress Test: Cardiac Cath: PCI: CT Surgery: Holter monitor: EPS: PPM: CXR: Chest CT Scan: Medical Necessity - Tobacco Use Smoking Status: Current every day smoker Tobacco Use: Cigarettes Assessment/Plan #1 acute inferior wall myocardial infarct, successful stenting of the proximal mid right coronary artery. No recurrence of bradycardia or hypotension. No recurrence of chest pain. From cardiac standpoint patient can be discharged and to be follow-up with Dr Gutierrez in 1 week in the clinic #2 history of heavy cigarette consumption, will encourage him to quit smoking, nicotine cessation therapy as needed #3 frequent PVCs and nonsustained ventricular tachycardia last night. This has been controlled with IV amiodarone. We will switch him over to p.o. amiodarone, once a day
--- NOTE | 2020-03-24 10:00 | EKG12_ITS ---
Test Reason : MORNING EKG Blood Pressure : / mmHG Vent. Rate : 057 BPM Atrial Rate : 057 BPM P-R Int : 160 ms QRS Dur : 082 ms QT Int : 448 ms P-R-T Axes : 024 -04 -39 degrees QTc Int : 436 ms Sinus bradycardia T Wave Abnormality: Consider Myocardial Ischemia: Inferior Confirmed by HAL OSBORNE, CONCEPCION ([id number]), graphics editor LAUREN BERMEO ([id number]) on 03/28/2020 10:10:22 AM Referred By: Alfonso Taylor Confirmed By:CONCEPCION HONG MD
--- NOTE | 2020-03-24 10:11 | DCINST_ITS ---
You will use the following diet at home:: Cardiac Your food should be the consistency of: Regular Your liquids should be the consistency of: Regular/Thin Discharge Activity: Return to Normal Activity Allergies/Adverse Reactions: Allergies No Known Allergies Allergy (Verified 03/22/20 16:37) Medications to take at Discharge Amiodarone HCl [Cordarone] 100 mg PO DAILY #15 tab 03/24/20 Aspirin E.C. [Ecotrin] 81 mg PO DAILY@0800 tablet 03/24/20 Atorvastatin Calcium [Lipitor] 40 mg PO QHS #30 tab 03/24/20 Carvedilol [Coreg (Beta Sarah)] 3.125 mg PO BID #60 tab 03/24/20 Prasugrel Hydrochloride [Effient] 10 mg PO DAILY #30 tab 03/24/20 The following prescriptions were given: Amiodarone HCl [Cordarone] 100 mg PO DAILY #15 tab Transmission Status: Pending to [id number] Carvedilol [Coreg (Beta Sarah)] 3.125 mg PO BID #60 tab Transmission Status: Pending to [id number] Prasugrel Hydrochloride [Effient] 10 mg PO DAILY #30 tab Transmission Status: Pending to [id number] Atorvastatin Calcium [Lipitor] 40 mg PO QHS #30 tab Transmission Status: Pending to [id number] Primary Care Physician: Care Physician,No Primary [Primary Care Provider] - Please follow up with your Primary Care Physician in: 1-2 weeks Test Results: Test results from this visit will be discussed in further detail at your follow- up appointment, if applicable. Please Follow Up With: Eulalio Gutierrez MD - Cardiology When: 1 week Proposed Discharge Date: 03/24/20
--- NOTE | 2020-03-24 11:13 | DS.PCM_ITS ---
<Elliot Dunn - Last Filed: 03/24/20 11:13> Discharge Date and Diagnosis Date of Admission: 03/22/20 Date of Discharge: 03/24/20 - Primary Discharge Diagnosis Acute Problems: Acute inferior stemi, s/p stent to RCA CAD HTN HLD Nicotine abuse Hospital Course and Treatment Imaging Results: 2D TTE Interpretation Summary Left ventricular systolic function is normal. Normal diastology for age. Normal LA filling pressure The estimated ejection fraction is 55 %. Mild (1+) mitral valve insufficiency. Mild tricuspid valve insufficiency. Normal pulmonary artery pressure. Infero-Basal: Hypokinetic Mid-inferoseptal : Hypokinetic Cath report: Summary: #1 successful stenting of the proximal and mid right coronary artery, occluded proximal right coronary artery with LACY 0 flow. Post PCI, residual stenosis was 0%. LACY-3 flow was reestablished. Type C lesion #2 minimally impaired left ventricular systolic wall motion #3 moderate ostial major diagonal branch stenosis #4 patient will undergo lifestyle modification. He will be on aspirin, Effient, statin and low-dose beta-sarah. Will be encouraged to quit smoking Consults: Cardiology - Lo Operations: None Procedures: 2-D Echocardiogram, Stress test Summary of Care Provided: Hospital course: The patient is a 60 year old M medical history of nicotine abuse who presented to the emergency room with complaints of substernal chest pain with associated shortness of breath. He called EMS who came out and performed an EKG that showed acute inferior wall KS. He was brought to the emergency room and taken for heart catheterization. He had a proximal right coronary artery stent placed. His troponin did elevate to 67. He had brief nonsustained V. tach on the monitor overnight and was placed on amiodarone. He had transient hypotension which was treated with dopamine. He was placed on aspirin, atorvastatin, Coreg, amiodarone, Effient at discharge. He was discharged home in stable condition. He will follow-up with cardiology in 1 week. He should follow-up with his PCP in 1 to 2 weeks. This patient was seen by Elliot Dunn PA-C under the supervision of Doctor Lawrence. [] - Physical Exam Vitals/I&O's: Vital Signs Temp Pulse Resp BP Pulse Ox 97.8 F 61 16 117/73 96 03/24/20 08:28 03/24/20 08:28 03/24/20 08:28 03/24/20 08:28 03/24/20 08:28 Oxygen Flow Rate (L/min) 0 Oxygen Delivery Method Room Air Weight: 175 lb 4.28 oz Body Mass Index (BMI) 25.9 Intake and Output for Last 24 Hours 03/22/20 03/23/20 03/24/20 23:59 23:59 23:59 Intake Total 37.02 / 212.02 1434.33 / 1674.33 240 / 240 Output Total 1949 / 1949 Balance 37.02 / -787.98 -515.67 / -275.67 240 / 240 General: Alert, Oriented x3, Cooperative HEENT: Atraumatic, PERRLA, EOMI, Normocephalic Neck: Supple, No JVD, Negative Carotid Bruits Lungs: Clear to auscultation, Normal air movement Cardiovascular: Regular rate, No murmurs Abdomen: Bowel Sounds Present, Soft, Non Tender Extremities: No edema, Capillary Refill Less than 3 Seconds Skin: No rashes, No breakdown Musculoskeletal: No Tenderness to Palpation of Joints or Extremities Neurological: Cranial nerves II-XII grossly intact Psych/Mental Status: Normal Affect, Appropriate, Alert and oriented to time, place, person, mood and affect Laboratory Results 03/22/20 16:35: Diff Path Review Reviewed 03/24/20 06:24: WBC 8.3, RBC 4.42 L, Hgb 13.8, Hct 42.3, MCV 95.7 H, MCH 31.2, MCHC 32.6 D, RDW Std Deviation 44.6 H, RDW Coeff of Marcos 12.6, Plt Count 205, MPV 10.2, Immature Gran % (Auto) 0.400, Neut % (Auto) 54.1, Lymph % (Auto) 34.3, [place] % (Auto) 9.0, Eos % (Auto) 1.8, Baso % (Auto) 0.4, Absolute Neuts (auto) 4.5, Absolute Lymphs (auto) 2.86, Nucleated RBC % 0 03/24/20 06:24: Sodium 139, Potassium 4.0, Chloride 110 H, Carbon Dioxide 26.0, Anion Gap 3 L, BUN 14, Creatinine 0.73, Estim Creat Clear Calc 106.27, Est GFR (MDRD) Af Amer 141, Est GFR (MDRD) Non-Af 117, BUN/Creatinine Ratio 19.3, Glucose 81, Calcium 8.5, Total Bilirubin 0.30, AST 99 H, ALT 46, Alkaline Phosphatase 73, Total Protein 6.7, Albumin 3.5, Globulin 3.2, Albumin/Globulin Ratio 1.1 Current Medications Amiodarone HCl (Amiodarone 200 Mg Tablet) 100 mg PO DAILY [facility] Aspirin (Aspirin E.C. 81 Mg Tablet) 81 mg PO DAILY@0800 [facility] Last Admin: 03/24/20 08:37 Dose: 81 mg Documented by: Atorvastatin Calcium (Atorvastatin Calcium 40 Mg Tablet) 40 mg PO QHS [facility] Last Admin: 03/23/20 21:42 Dose: 40 mg Documented by: Atropine Sulfate (Atropine Sulfate 1 Mg/10 Ml Syringe) 0.5 mg IV UD PRN PRN Reason: HR <50 bpm Carvedilol (Carvedilol 3.125 Mg Tablet) 3.125 mg PO BID [facility] Last Admin: 03/24/20 08:37 Dose: 3.125 mg Documented by: Enoxaparin Sodium (Enoxaparin 40 Mg/0.4 Ml Syringe) 40 mg SC DAILY@0600 [facility] Last Admin: 03/24/20 06:01 Dose: 40 mg Documented by: Heparin Sodium (Beef Lung) (Heparin Lock 500 Unit/5 Ml In 10 Ml Syringe) 500 unit IV UD PRN PRN Reason: HEPARIN FLUSH Sodium Chloride () 250 mls @ 15 mls/hr IV .[id number] PRN PRN Reason: Saline Flush Sodium Chloride () 250 mls @ 15 mls/hr IV .[id number] PRN PRN Reason: Additional IVPB Infusion Labetalol HCl (Labetalol (Prefilled) 20 Mg/4 Ml) 5 mg IV X1 PRN PRN Reason: SBP >160 when pulling sheath Stop: 03/24/20 17:53 Nicotine (Nicotine 21 Mg Patch) 21 mg TD DAILY [facility] Last Admin: 03/24/20 08:39 Dose: Not Given Documented by: Ondansetron HCl (Ondansetron 4 Mg/2 Ml Vial) 4 mg IV Q6H PRN PRN PRN Reason: NAUSEA/VOMITING Last Admin: 03/23/20 08:31 Dose: 4 mg Documented by: Prasugrel (Prasugrel Hydrochloride 10 Mg Tablet) 10 mg PO DAILY NUSRAT Last Admin: 03/24/20 08:37 Dose: 10 mg Documented by: Sodium Chloride (0.9% Normal Saline 500 Ml Iv.Soln.) 500 ml IV BOLUS PRN PRN Reason: VASO-VAGAL PROTOCOL Sodium Chloride (0.9% Saline Lock 10 Ml Syringe) 10 - 40 ml IV UD PRN PRN Reason: SALINE FLUSH Discharge Diet: Low fat/ Low Cholesterol, 2000 mg Sodium Diet Discharge Activity: Return to Normal Activity Home Medications: Medications to take at Discharge Amiodarone HCl [Cordarone] 100 mg PO DAILY #15 tab 03/24/20 Aspirin E.C. [Ecotrin] 81 mg PO DAILY@0800 tab 03/24/20 Atorvastatin Calcium [Lipitor] 40 mg PO QHS #30 tab 03/24/20 Carvedilol [Coreg (Beta Sarah)] 3.125 mg PO BID #60 tab 03/24/20 Prasugrel Hydrochloride [Effient] 10 mg PO DAILY #30 tab 03/24/20 Following Prescriptions Were Given to Patient: Amiodarone HCl [Cordarone] 100 mg PO DAILY #15 tab Transmission Status: Received by [facility]/pharmacy #[id number] Carvedilol [Coreg (Beta Sarah)] 3.125 mg PO BID #60 tab Transmission Status: Received by [facility]/pharmacy #[id number] Prasugrel Hydrochloride [Effient] 10 mg PO DAILY #30 tab Transmission Status: Received by [facility]/pharmacy #[id number] Atorvastatin Calcium [Lipitor] 40 mg PO QHS #30 tab Transmission Status: Received by [facility]/pharmacy #[id number] Primary Care Physician: Care Physician,No Primary [Primary Care Provider] - Please follow up with your Primary Care Physician in: 1-2 weeks Please Follow Up With: Eulalio Gutierrez MD - Cardiology When: 1 week Disposition: Home Minutes spent on discharge:: 35 Patient Condition:: Stable Medical Necessity - Tobacco Use Smoking Status: Current every day smoker Tobacco Use: Cigarettes Meaningful Use Info Meaningful Use Diagnoses (Choose all that apply): AMI - AMI/Post PCI/Angioplasty Aspirin given w/in 24hrs of arrival?: Yes ASA at discharge?: Yes Statins at discharge?: Yes Hipolito/ARB at discharge?: No Reason Hipolito/ARB not ordered:: Hypotension Beta Sarah at discharge?: Yes Done w/ Acute KS measure.: Yes Documented LVEF (%): 55 <Vaishnavi Lawrence - Last Filed: 03/25/20 08:10> Hospital Course and Treatment Summary of Care Provided: This patient was seen in conjunction with MAURICIO Hairston. I have independently interviewed and examined the patient and reviewed pertinent historical, laboratory, and other data. Please refer to MAURICIO Hairston note for his patient's presentation, findings, and recommendations. I have reviewed and his note and concur with his documentation 60-year-old male with nicotine use disorder who comes in complaining of substernal chest pain and shortness of breath. Patient was diagnosed with acute inferior KS. He underwent emergent cardiac catheterization and had 2 stents placed in his right coronary artery. He was monitored overnight, had brief episodes of hypotension and tachycardia. He was placed on amiodarone. He was stable and was transferred out of the ICU to PCU. No acute events overnight. No events on telemetry. He was discharged home on aspirin, statin, Coreg, amiodarone and Effient. He was given a list of primary care doctors to choose from and follow-up with On the day of discharge, patient was seen and examined. Denied any new complaints Physical Exam: Gen: Comfortable, not pale, not jaundiced CVS:HS I +II, regular, no murmurs RESP: Diminished at lung bases GI: BS present and normal, soft, nontender, no palpable organs EXT:No edema - Physical Exam Vitals/I&O's: Vital Signs Temp Pulse Resp BP Pulse Ox 97.4 F L 64 16 114/70 100 03/24/20 11:10 03/24/20 11:10 03/24/20 11:10 03/24/20 11:10 03/24/20 11:10 Oxygen Flow Rate (L/min) 0 Oxygen Delivery Method Room Air Weight: 79.5 kg Body Mass Index (BMI) 25.9 Intake and Output for Last 24 Hours 03/23/20 03/24/20 03/25/20 23:59 23:59 23:59 Intake Total 1434.33 / 1674.33 240 / 240 Output Total 1950 / 1950 Balance -515.67 / -275.67 240 / 240 Laboratory Results 03/24/20 06:24: WBC 8.3, RBC 4.42 L, Hgb 13.8, Hct 42.3, MCV 95.7 H, MCH 31.2, MCHC 32.6 D, RDW Std Deviation 44.6 H, RDW Coeff of Marcos 12.6, Plt Count 205, MPV 10.2, Immature Gran % (Auto) 0.400, Neut % (Auto) 54.1, Lymph % (Auto) 34.3, [place] % (Auto) 9.0, Eos % (Auto) 1.8, Baso % (Auto) 0.4, Absolute Neuts (auto) 4.5, Absolute Lymphs (auto) 2.86, Nucleated RBC % 0 Inpatient E&M: 60077 Disch Hosp
--- NOTE | 2020-03-26 11:31 | CRPHASE1_ITS ---
Patient Communication Choice Letter Given to Patient:: Yes - PT STATES HE RECEIVED PRIOR TO D/C Guide to Cardiac Rehab Given by ICU Staff Prior to Discharge: Yes - PT STATES HE RECEIVED PRIOR TO D/C Guide to Cardiac Rehab Mailed to Patient by CR Staff:: No Patient Contacted Post Discharge by CR Staff:: Yes - CALLED PT 03/26/20 TO DISCUSS THE ABOVE AND INFORM ABOUT CR PROGRAM PHII Cardiac Rehab Referral:: [facility] Risk Factors/Lifestyle Family History: Family History (This Medical Record has been edited. Action required.) Other Cancer Laboratory Values: Cardiac Rehab Phase I Labs Hemoglobin A1c 4.8 % (3.8-5.6) 03/22/20 20:15 Triglycerides 130 mg/dL (-199) 03/22/20 20:15 Cholesterol 196 mg/dL (200) 03/22/20 20:15 LDL Cholesterol 139 mg/dL (0-130) H 03/22/20 20:15 HDL Cholesterol 31 mg/dL (40-) L 03/22/20 20:15 Cardiac Rehabilitation Info Cardiac Rehabilitation Program Information: Cardiac Rehabilitation is important for patients like you who are recovering from a heart problem. Cardiac rehabilitation programs are recognized as integral to the continued care of the patient with coronary heart disease. The cardiac rehabilitation program is designed to optimize a patient's physical, psychological, and social functioning. Health director of career services work in cardiac rehabilitation programs and assist you with getting the treatments you need to get stronger and healthier - like exercise, healthy eating habits, and medicat ions. Cardiac rehabilitation has been show to help people with heart problems live longer and have better life enjoyment than people who do not go to cardiac rehabilitation. Please contact the Cardiac Rehabilitation Program at [facility] at in two weeks if you have not heard from them.
--- NOTE | 2020-03-26 11:33 | CRPH1.INSTRU ---
General Education CAD and cardiac anatomy and function:: Not instructed - PT WAS CALLED AT HOME POST D/C AND INSTUCTED ON CR PROGRAM AND VERIFIED THAT HE DID RECEIVE BOOKLET PRIOR TO D/C
== END 2020-03-24 11:19 | disposition home or self-care (01) | DRG 247 ==
LOC: ED 16:53 → ICU 17:12 → PCU 03-23 21:22
PROVIDERS: Internal Medicine; Admitting Provider Internal Medicine Cardiovascular Disease; Emergency Provider Emergency Medicine; Referring Provider Internal Medicine Cardiovascular Disease; Visit Provider Internal Medicine Cardiovascular Disease
DX: I21.19 ST elevation (STEMI) myocardial infarction involving other coronary artery of inferior wall (principal); I47.2 Ventricular tachycardia; I49.3 Ventricular premature depolarization; I25.10 Atherosclerotic heart disease of native coronary artery without angina pectoris; I95.9 Hypotension, unspecified; E87.6 Hypokalemia; E78.5 Hyperlipidemia, unspecified; I10 Essential (primary) hypertension; F17.210 Nicotine dependence, cigarettes, uncomplicated; Z79.899 Other long term (current) drug therapy
CPT/HCPCS: 36415; 80048; 80053; 80061; 83036; 83735; 84132; 84484; 85025; 85027; 85347; 92941; 93005; 93306; 93458; 99283; 99406; C1887; J7030; A4216; C1725; C1757; C1769; C1874; C1894; C9606; J2405; Q9967

== ENCOUNTER 2021-10-30 12:06 | Inpatient (IN) | payer OTHER, SELFPAY ==
[2021-10-30] VITALS (7 sets, daily range): BP systolic 120–142; BP diastolic 78–106; PULSE 62–90; RESP 18–22; TEMP 36.5–36.9; O2SAT 96–100; BMI 26.6; BMI 23.8
--- NOTE | 2021-10-30 12:42 | EKG12_ITS ---
Test Reason : Numbness/tingling Blood Pressure : / mmHG Vent. Rate : 076 BPM Atrial Rate : 076 BPM P-R Int : 158 ms QRS Dur : 084 ms QT Int : 366 ms P-R-T Axes : 022 016 031 degrees QTc Int : 411 ms Normal sinus rhythm Normal ECG Confirmed by HAL OSBORNE, CONCEPCION ([id number]), map editor LAUREN BERMEO ([id number]) on 11/02/2021 9:39:19 AM Referred By: Baljit Confirmed By:CONCEPCION HONG MD
--- NOTE | 2021-10-30 12:42 | CT_ITS ---
STUDY: CT HEAD STROKE PROTOCOL W/O CONTRAST INJECTION REASON FOR EXAM: Male, 61 years old. Neuro deficit, acute, stroke suspected RADIATION DOSAGE (If Supplied By Facility): CTDIvol = ( 44.99 ) mGy, DLP = ( 745.49 ) mGycm TECHNIQUE: Transaxial CT imaging of the brain was performed without administration of intravenous contrast material. Individualized dose optimization techniques were used for this CT. COMPARISON: No relevant priors. FINDINGS: Normal soft tissue structures. Normal calvarium. Normal size ventricles and extra-axial spaces for the patient''s age. Normal white matter tracts of the cerebral hemispheres. Normal basal ganglia and thalami. Normal brainstem. Normal cerebellum. There is no intracranial hemorrhage. There are no findings of an acute ischemic infarction. Mild degree of mucosal thickening of the ethmoid sinuses bilaterally. Mild degree of mucosal thickening of the sphenoid sinuses bilaterally. ASPECT score: 10 CT/STROKE Brain/Head without Cont IMPRESSION: Normal unenhanced CT scan of the brain. Mucosal thickening of the ethmoid sinuses and the sphenoid sinus. N.B. : The above Results were Read Back by Raphael Perkins MD to Yesica Smiley and understanding confirmed on 10/30/2021 13:25:40 (ET). Electronically Signed: Raphael Perkins MD at 13:26 EDT ,
--- NOTE | 2021-10-30 12:42 | EDS_ITS ---
HPI History of Present Illness Chief Complaint: Numb/Ting Informant: patient Narrative Narrative: 61-year-old male presenting with right-sided facial droop, tingling of right face and arm, slurred speech. Symptoms started just prior to arrival and have now resolved. No history of stroke. He takes aspirin daily. Denies chest pain or shortness of breath. Prior similar symptoms: No Recent Illness/Hospitalization: [facility] Medical History (Updated 10/30/21 @ 14:[address] 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) Home Medications aspirin 81 mg tablet,delayed release 81 mg PO DAILY@0800 03/24/20 [Rx Last Taken Unknown] Allergy/AdvReac Type Severity Reaction Status Date / Time No Known Allergies Allergy Verified 10/30/21 12:08 Family History Father Colon cancer Surgical History History of coronary artery stent placement (03/22/20) Social History Smoking Status: Current every day smoker tobacco type: cigarettes Tobacco: How many years used: 40 alcohol intake: never substance use type: does not use what type of physical activity do you participate in: none ROS ROS ED Constitutional Constitutional ED: Denies fever(s) Eyes Eyes: Denies blurry vision or change in vision ENT ENT ED: Denies rhinorrhea Cardiovascular Cardiovascular: Denies chest pain Respiratory/Chest Respiratory/Chest: Denies dyspnea Gastrointestinal Gastrointestinal: Denies abdominal pain Musculoskeletal Musculoskeletal: Denies back pain Integumentary Denies rash Neurologic Neurologic: Reports paresthesias; Denies headache(s) or weakness Psychiatric Psychiatric: Denies suicidal ideation EXAM Physical Exam Const Vital Signs: 10/30/21 12:07 10/30/21 12:42 10/30/21 12:42 Temperature 97.7 F L Temperature Source Temporal Pulse Rate 90 80 Respiratory Rate 18 20 H Blood Pressure 142/106 H 135/86 H Blood Pressure Mean 118 102 Pulse Ox 98 96 Oxygen Delivery Method Room Air Room Air Room Air Positive well nourished and well developed General Appearance ED: well developed HEENT Reports moist mucous membranes Eyes PERRL and EOMs intact bilaterally Neck supple Chest Wall inspection of chest normal and palpation of chest normal Resp normal respiratory effort and clear to auscultation bilaterally Cardio regular rate and regular rhythm GI normal to inspection, nondistended, normoactive bowel sounds and non-tender Back/Spine no CVA tenderness Extremity normal to inspection Neuro oriented x3, CN's II-XII intact bilaterally and no sensory deficits noted Neuro Narrative: NIH 0 Motor Exam: strength 5/5 throughout Psych mental status grossly normal Skin no rashes or lesions noted MDM MDM MDM Narrative Medical decision making narrative: Patient is not a tPA candidate as NIH is 0 and symptoms are now resolved. CT head shows no acute process. CBC, chemistries are unremarkable. INR is normal. EKG is sinus rhythm rate of 76 with no acute ischemic changes. Discussed with hospitalist for observation. Lab Data Attestation: I reviewed the patient's lab results. Labs: Laboratory Results - last 24 hr 10/30/21 10/30/21 10/30/21 12:55 12:55 12:55 WBC 7.9 RBC 4.65 Hgb 14.9 Hct 42.8 MCV 92.0 MCH 32.0 MCHC 34.8 RDW Std Deviation 42.5 RDW Coeff of Marcos 12.6 Plt Count 219 MPV 9.5 Immature Gran % (Auto) 0.400 Neut % (Auto) 56.0 Lymph % (Auto) 29.2 [place] % (Auto) 11.9 H Eos % (Auto) 1.9 Baso % (Auto) 0.6 Absolute Neuts (auto) 4.4 Absolute Lymphs (auto) 2.31 Nucleated RBC % 0 PT 13.6 INR 1.1 APTT 28.4 Sodium 137 Potassium 4.0 Chloride 104 Carbon Dioxide 27.0 Anion Gap 6 BUN 11 Creatinine 0.86 Estim Creat Clear Calc 86.16 Est GFR (MDRD) Af Amer 115 Est GFR (MDRD) Non-Af 95 BUN/Creatinine Ratio 12.8 Glucose 88 Calcium 9.0 Troponin I High Sens 8 Radiography Chest X-Ray - ED: 1 View, Read by ED Physician and Read by Radiologist Diagnostic Testing: Clinical Impression(s) from Imaging Studies Brain CT 10/30/21 12:42 IMPRESSION: Normal unenhanced CT scan of the brain. Mucosal thickening of the ethmoid sinuses and the sphenoid sinus. N.B. : The above Results were Read Back by Raphael Perkins MD to Yesica Smiley and understanding confirmed on 10/30/2021 13:25:40 (ET). Electronically Signed: Raphael Perkins MD at 13:26 EDT , ADDENDUM: 10/30/21 1333 IMPRESSION: Normal unenhanced CT scan of the brain. Mucosal thickening of the ethmoid sinuses and the sphenoid sinus. N.B. : The above Results were Read Back by Raphael Perkins MD to Yesica Smiley and understanding confirmed on 10/30/2021 13:25:40 (ET). Electronically Signed: Raphael Perkins MD at 13:26 EDT , Chest X-Ray 10/30/21 13:20 IMPRESSION: Hyperinflation. The lungs are clear. Electronically Signed: Raphael Perkins MD at 13:42 EDT , EKG Initial EKG: Attestation: I personally reviewed and interpreted this EKG as follows: Interpretation: Sinus Rhythm and No Acute Injury Pattern Discharge Plan Triage Chief Complaint: Numb/Ting ED Provider: Yesica Smiley Dx/Rx/DC Orders Clinical Impression: TIA (transient ischemic attack) Prescriptions: No Action aspirin 81 MG tablet 81 mg PO DAILY@0800 0RF Primary Care Provider: Dianna Craft Referrals: Dianna Craft MD [Primary Care Provider] - Disposition Disposition: Acute Care [facility]
[2021-10-30 13:07] LABS: Absolute Lymphocyte Count 2.31 X10^3/uL (0.83-4.51); Absolute Neutrophil Count 4.4 X10^3/uL (2.0-7.7); Basophil# 0.05 X10^3/uL; Basophil% 0.6 % (0-1); Eosinophil# 0.15 X10^3/uL; Eosinophils% 1.9 % (0-5); Hematocrit 42.8 % (40-54); Hemoglobin 14.9 g/dL (13.0-16.5); Lymphocyte # 2.31 X10^3/ul (0.83-4.51); Lymphocyte % 29.2 % (19-41); Mean Corp Hgb Conc 34.8 g/dL (32-36); Mean Platelet Vol. 9.5 fl (6.2-12.0); Monocyte# 0.94 X10^3/uL; Monocyte% 11.9 % (0-10); NRBC Flagged by Analyzer 0 % (0-5); Neutrophil # 4.43 X10^3/uL (2.7-7.7); Platelet Count 219 K/mm3 (150-450); RBC Distribution Width CV 12.6 % (11.6-14.6); RBC Distribution Width SD 42.5 fl (35.1-43.9); Red Blood Count 4.65 M/mm3 (4.6-6.2); White Blood Count 7.9 K/mm3 (4.4-11.0)
[2021-10-30 13:14] LABS: International Normalized Ratio 1.1; Prothrombin Time (Protime)PT. 13.6 SECONDS (11.7-14.9)
[2021-10-30 13:15] LABS: Partial Thromboplast Time 28.4 Seconds (24.1-36.2)
--- NOTE | 2021-10-30 13:20 | RAD_ITS ---
STUDY: X-RAY CHEST REASON FOR EXAM: Male, 61 years old. Neuro deficit, acute, stroke suspected TECHNIQUE: Single AP portable view of the chest. COMPARISON: None. FINDINGS: EKG electrodes are seen. Hyperinflation. The lungs are clear. There is no demonstrated pleural abnormality. Normal size heart. Normal mediastinum and jenifer. Normal visualized pulmonary arteries. There is atherosclerotic tortuosity of the aortic arch and descending thoracic aorta. There are degenerative changes of the visualized thoracic spine. Normal visualized ribs, clavicles, and shoulders. There is no demonstrated abnormality of the visualized soft tissue structures of the upper abdomen. RAD/Chest 1 View IMPRESSION: Hyperinflation. The lungs are clear. Electronically Signed: Raphael Perkins MD at 13:42 EDT ,
[2021-10-30 13:25] LABS: Anion Gap 6 (5-15); BUN 11 mg/dL (7-18); BUN/Creat Ratio 12.8 RATIO (10-20); Chloride 104 mmol/L (98-107); Creatinine, Serum 0.86 mg/dL (0.70-1.30); EST Glomerular Filtration Rate 95 mL/min (>60); Est Glom Filt Rate - Afr Amer 115 mL/min (>60); Estimated Creatinine Clearance 86.16 ml/min; Glucose 88 mg/dL (74-106); Sodium Level 137 mmol/L (136-145); Troponin-I HS 8 pg/mL (3.0-78.0)
--- NOTE | 2021-10-30 14:12 | NURSING ---
PCU OBS [place] TIA
--- NOTE | 2021-10-30 15:16 | ECHOD_ITS ---
Reason For Study: TIA/CVA Procedure This was a 2D Doppler, Color Flow transthoracic echocardiogram. The study was technically difficult. Exam performed portable in patient room. Left Ventricle Normal LV size. Left ventricular systolic function is normal. The estimated ejection fraction is 60 %. Diastolic function is indeterminate. No regional wall motion abnormalities noted. Right Ventricle Normal RV size. Normal systolic function. Atria Normal left atrium. Normal right atrium. No doppler evidence for ASD. Bubble contrast study negative for right to left interatrial shunt. Mitral Valve There is mild mitral annular calcification. Normal mitral valve. Trivial mitral valve insufficiency. Tricuspid Valve Normal tricuspid valve. Trivial tricuspid valve insufficiency. Unable to estimate RV systolic pressure/pulmonary artery pressure due to technically difficult study. Aortic Valve Trisinus/trileaflet aortic valve. Normal aortic valve. Pulmonic Valve The pulmonic valve is not well visualized. Great Vessels The aortic root is not well visualized. Pericardium/Pleural No pericardial effusion. Medication Performed a rapid injection of agitated mix of 9 cc saline and 1cc air to assess for atrial septal defect. MMode/2D Measurements & Calculations LVIDd: 5.5 cm IVSd: 0.84 cm LAV(MOD-bp): 34.0 ml LVIDs: 3.6 cm LVPWd: 0.84 cm RVDd: 3.0 cm FS: 34.9 % LAV(MOD-bp) Indexed: 17.6 ml/m2 LAV(MOD-sp2): 60.0 ml LAV(MOD-sp4): 19.7 ml SV(MOD-sp4): 64.0 ml SV(sp4-el): 67.6 ml LVAd ap4: 34.6 cm2 LVLd ap4: 8.4 cm EDV(MOD-sp4): 119.7 ml EDV(sp4-el): 120.3 ml LVAs ap4: 20.4 cm2 LVLs ap4: 6.7 cm ESV(MOD-sp4): 55.7 ml ESV(sp4-el): 52.7 ml EF(MOD-sp4): 53.4 % EF(sp4-el): 56.2 % LA dimension(2D): 3.8 cm LA A4 area: 9.7 cm2 RA A4 area: 15.7 cm2 Doppler Measurements & Calculations MV E max kumar: 50.7 cm/sec Lat Peak E' Kumar: 10.8 cm/sec Med Peak E' Kumar: 5.3 cm/sec MV A max kumar: 77.6 cm/sec E/E' lat: 4.7 E/E' med: 9.6 MV E/A: 0.65 Ao V2 max: 165.6 cm/sec LV V1 max: 112.5 cm/sec PA V2 max: 107.9 cm/sec Ao max P.0 mmHg LV V1 max P.1 mmHg ECHO/Echo Complete Interpretation Summary The study was technically difficult. Left ventricular systolic function is normal. The estimated ejection fraction is 60 %. There is mild mitral annular calcification. Trivial mitral valve insufficiency. Trivial tricuspid valve insufficiency. Unable to estimate RV systolic pressure/pulmonary artery pressure due to techni marci difficult study. Diastolic function is indeterminate. Bubble contrast study negative for right to left interatrial shunt. Ordering Physician: Roosevelt Kruse Referring Physician: Dianna Craft M.D. Performed By: Raven Mcintyre RCS
--- NOTE | 2021-10-30 17:38 | HP.PCM.HOS_ITS ---
HPI - General General Date of Admission: 10/30/21 HPI Narrative LORRI COUGHLIN, is a 61 M who presents to the hospital with numbness and tingling in his right arm and leg as well as a facial droop on his right face and slurred speech. This occurred at work and resolved very quickly however he was brought to the ER. In the ER he had none of the symptoms and says that he is back to baseline, NIH of 0. He does have a cardiac history with a stent but he is only on aspirin because he says that Plavix was too expensive. And even then he has hyperlipidemia and a history of CAD he does not appear to be on a statin either. [facility] Medical History (Updated 10/30/21 @ 14:[address] 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) Home Medications aspirin 81 mg tablet,delayed release 81 mg PO DAILY@0800 HEALTH MAINTENANCE 10/30/21 [History Last Taken 10/30/21] Allergy/AdvReac Type Severity Reaction Status Date / Time No Known Allergies Allergy Verified 10/30/21 12:08 Family History Father Colon cancer Surgical History History of coronary artery stent placement (03/22/20) Social History Smoking Status: Current every day smoker tobacco type: cigarettes Tobacco: How many years used: 40 alcohol intake: never substance use type: does not use what type of physical activity do you participate in: none ROS Constitutional Constitutional: Denies chills, fatigue, fever(s) or malaise Eyes Eyes: Denies blurry vision ENT HEENT: Denies headache(s) or nasal discharge Cardiovascular Cardiovascular: Denies chest pain, dyspnea on exertion or syncope Respiratory/Chest Respiratory/Chest: Denies cough, shortness of breath at rest or shortness of breath with exertion Gastrointestinal Gastrointestinal: Denies constipation, diarrhea, nausea or vomiting Genitourinary Genitourinary: Denies dysuria Neurologic Neurologic: Denies focal weakness, numbness or tremor(s) Psychiatric Psychiatric: Denies anxiety or depression Vital Signs Vital Signs Vital Signs: 10/30/21 12:07 10/30/21 12:42 10/30/21 12:42 Temperature 97.7 F L Temperature Source Temporal Pulse Rate 90 80 Respiratory Rate 18 20 H Blood Pressure 142/106 H 135/86 H Blood Pressure Mean 118 102 Blood Pressure Source Blood Pressure Position Blood Pressure Location Pulse Ox 98 96 Oxygen Delivery Method Room Air Room Air Room Air 10/30/21 14:06 10/30/21 14:29 10/30/21 16:05 Temperature 98.5 F Temperature Source Temporal Pulse Rate 72 69 Respiratory Rate 22 H 18 Blood Pressure 120/78 131/85 H Blood Pressure Mean 92 100 Blood Pressure Source Monitor Blood Pressure Position Semi-Fowlers Blood Pressure Location Right Arm Pulse Ox 97 99 Oxygen Delivery Method Room Air Room Air Room Air 10/30/21 15:35 Temperature Temperature Source Pulse Rate 63 Respiratory Rate Blood Pressure Blood Pressure Mean Blood Pressure Source Blood Pressure Position Blood Pressure Location Pulse Ox Oxygen Delivery Method Weight Weight: 161 lb 10.287 oz Body Mass Index (BMI) 23.8 Physical Exam Const alert, oriented x3 and no apparent distress General Appearance: cooperative HEENT normocephalic and moist oral mucous membranes Eyes PERRL, EOMs intact bilaterally and conjunctivae normal Neck supple and no JVD Resp normal respiratory effort, no retractions, no use of accessory muscles and clear to auscultation bilaterally Auscultation: Negative for crackles, rales, rhonchi or wheezes Cardio regular rate, regular rhythm, S1 normal heart sound, S2 normal heart sound and no murmurs GI soft to palpation, non-tender and non-distended; Negative for hepatosplenomegaly Extremity no clubbing, cyanosis or edema Skin no rashes or lesions noted Neuro CN's II-XII intact bilaterally, moves all extremities, no focal motor deficits and no sensory deficits noted Psych affect normal Appearance: appropriate Results Lab / Micro Data Result Diagrams: 10/30/21 12:55 10/30/21 12:55 Labs: Laboratory Results - last 24 hr 10/30/21 12:55: WBC 7.9, RBC 4.65, Hgb 14.9, Hct 42.8, MCV 92.0, MCH 32.0, MCHC 34.8, RDW Std Deviation 42.5, RDW Coeff of Marcos 12.6, Plt Count 219, MPV 9.5, Immature Gran % (Auto) 0.400, Neut % (Auto) 56.0, Lymph % (Auto) 29.2, [place] % (Auto) 11.9 H, Eos % (Auto) 1.9, Baso % (Auto) 0.6, Absolute Neuts (auto) 4.4, Absolute Lymphs (auto) 2.31, Nucleated RBC % 0 10/30/21 12:55: PT 13.6, INR 1.1, APTT 28.4 10/30/21 12:55: Sodium 137, Potassium 4.0, Chloride 104, Carbon Dioxide 27.0, Anion Gap 6, BUN 11, Creatinine 0.86, Estim Creat Clear Calc 86.16, Est GFR (MDRD) Af Amer 115, Est GFR (MDRD) Non-Af 95, BUN/Creatinine Ratio 12.8, Glucose 88, Calcium 9.0, Troponin I High Sens [address] 10/30/21 12:42 IMPRESSION: Normal unenhanced CT scan of the brain. Mucosal thickening of the ethmoid sinuses and the sphenoid sinus. N.B. : The above Results were Read Back by Raphael Perkins MD to Yesica Smiley and understanding confirmed on 10/30/2021 13:25:40 (ET). Electronically Signed: Raphael Perkins MD at 13:26 EDT , ADDENDUM: 10/30/21 1333 IMPRESSION: Normal unenhanced CT scan of the brain. Mucosal thickening of the ethmoid sinuses and the sphenoid sinus. N.B. : The above Results were Read Back by Raphael Perkins MD to Yesica Smiley and understanding confirmed on 10/30/2021 13:25:40 (ET). Electronically Signed: Raphael Perkins MD at 13:26 EDT , ADDENDUM: 10/30/21 1708 IMPRESSION: undefined Chest X-Ray 10/30/21 13:20 IMPRESSION: Hyperinflation. The lungs are clear. Electronically Signed: Raphael Perkins MD at 13:42 EDT , Assessment & Plan Assessment/Plan (1) TIA (transient ischemic attack): PLAN: Plan 1. TIA versus CVA ? All of the symptoms has resolved and is now an NIH of 0 ? We will continue with the stroke protocol ? Continue with aspirin and Plavix ? Continue with statin ? We will obtain an MRI and an echo ? PT and OT are also going to see him 2. CAD status post stent/HLD ? We will continue with Lipitor, blood pressures are currently stable but will let him ride high for permissive hypertension ? She does have labetalol on board in case his blood pressures climb 2. Tobacco use ? Counseled on cessation DVT: Ambulation Charges/Coding Visit Charges OBSV E&M: 92738 Initial observation care L2
[2021-10-30] MEDS: Clopidogrel Bisulfate 75 MG Tablet PO (17:45)
--- NOTE | 2021-10-30 18:48 | MRI_ITS ---
We are attempting to reach an attending provider to discuss findings. An addendum with communication details will be sent when the communication is complete. EXAM: MR HEAD WITHOUT INTRAVENOUS CONTRAST CLINICAL INDICATION: CVA TECHNIQUE: Multiplanar and multisequence MR images of the brain were obtained without intravenous contrast. This report was created using [employer] report generation technology. COMPARISON: ct Oct 30 2021 1:12pm FINDINGS: BRAIN AND EXTRA-AXIAL SPACES: Punctate infarcts in the left MCA distribution may be embolic in nature. This is an acute finding. No intra- or extra-axial hemorrhage. No intracranial mass or mass effect. Posterior fossa structures are unremarkable. Ventricles are appropriate for age. No hydrocephalus. Basal cisterns are patent. SELLA: Unremarkable. Normal sella turcica, pituitary gland, infundibular stalk, optic chiasm and hypothalamus. AUDITORY SYSTEM: Unremarkable. The internal auditory canals are patent. BONES/JOINTS: Unremarkable. No discrete lytic or blastic abnormalities. SINUSES: Unremarkable as visualized. Clear. MASTOID AIR CELLS: Unremarkable as visualized. Clear. ORBITS: Unremarkable as visualized. Both globes, extraocular muscles, optic nerves and retrobulbar fat appear unremarkable. VASCULATURE: Unremarkable as visualized. Normal flow voids in the major intracranial circulation. MRI/Brain without Contrast IMPRESSION: Punctate infarcts in the left MCA distribution may be embolic in nature. This is an acute finding. Critical finding called and case discussed. Electronically Signed: Hever Fleming MD at 19:55 EDT ,
[2021-10-30] MEDS: 0.9% Saline Lock 10 ML Syringe IV (20:26)
[2021-10-30] MEDS: Atorvastatin Calcium 80 MG Tablet PO (20:26)
[2021-10-31] VITALS (9 sets, daily range): BP systolic 104–140; BP diastolic 59–82; PULSE 59–70; RESP 16–18; TEMP 36.5–37; O2SAT 97–100; BMI 23.8
[2021-10-31 07:00] LABS: Absolute Lymphocyte Count 1.36 X10^3/uL (0.83-4.51); Absolute Neutrophil Count 4.9 X10^3/uL (2.0-7.7); Basophil# 0.04 X10^3/uL; Basophil% 0.5 % (0-1); Eosinophil# 0.17 X10^3/uL; Eosinophils% 2.3 % (0-5); Hematocrit 43.9 % (40-54); Lymphocyte # 1.36 X10^3/ul (0.83-4.51); Lymphocyte % 18.5 % (19-41); Mean Corp Hgb Conc 34.2 g/dL (32-36); Mean Corpuscular Hgb 31.5 pg (27.0-32.0); Mean Corpuscular Volume 92.2 fL (80-94); Mean Platelet Vol. 9.8 fl (6.2-12.0); Monocyte# 0.87 X10^3/uL; Monocyte% 11.8 % (0-10); NRBC Flagged by Analyzer 0 % (0-5); Neutrophil # 4.89 X10^3/uL (2.7-7.7); Neutrophil % 66.6 % (47-70); Platelet Count 232 K/mm3 (150-450); RBC Distribution Width CV 12.3 % (11.6-14.6); Red Blood Count 4.76 M/mm3 (4.6-6.2); White Blood Count 7.4 K/mm3 (4.4-11.0)
[2021-10-31 07:36] LABS: Anion Gap 6 (5-15); BUN 14 mg/dL (7-18); BUN/Creat Ratio 17.7 RATIO (10-20); Calcium,Total 8.8 mg/dL (8.5-10.1); Chloride 105 mmol/L (98-107); Cholesterol 176 mg/dL (200); Creatinine, Serum 0.79 mg/dL (0.70-1.30); EST Glomerular Filtration Rate 106 mL/min (>60); Est Glom Filt Rate - Afr Amer 128 mL/min (>60); Estimated Creatinine Clearance 96.95 ml/min; Glucose 91 mg/dL (74-106); High Density Lipoprotein 28 mg/dL; Potassium 3.6 mmol/L (3.5-5.1); Sodium Level 136 mmol/L (136-145); Triglycerides 98 mg/dL; Very Low Density Lipoprotein 20 mg/dL (5-40)
--- NOTE | 2021-10-31 07:37 | TELEMED_ITS ---
SOC Telemed has confirmed receipt of a request for visit. This document confirms receipt of the order initiating the consult. To find the results of the consultation, please view the patient's reports for the scanned Telemed Consult.
[2021-10-31] MEDS: Aspirin E.C. 81 MG Tablet PO (08:06)
[2021-10-31] MEDS: Clopidogrel Bisulfate 75 MG Tablet PO (09:41)
--- NOTE | 2021-10-31 11:15 | CASEMGMT ---
SHWETA GALINDO assessment: Face to Face with patient for initial transition planning/care coordination assessment. SHWETA GALINDO introduced self and role at [facility], pt voices understanding and consents to assessment. Pt is lying in bed in no distress on room air. Pt is A/Ox4 and answers all questions appropriately. Care providers, pharmacy,?and demographics verified/updated. ? Presentation: Pt c/o tingling to right face/arm Admitting dx: Acute CVA PCP: Venancio Specialists: None Preferred Pharmacy: [facility] Insurance: Cigna Prescription Benefit:?Cigna Living Will/HPOA: Pt has LW/HPOA and is aware that they are not on file at [facility]. Pt states his son, Vitor Blunt, is HPOA. LNOK: Vitor Blunt, son/HPOA Living Arrangements: Pt lives alone in home and states no concerns at home. Pt is independent with ADL's. Transportation: Pt drives self and states no transportation concerns. DME/HHC: Pt states no current DME or need for any further DME. Pt states no hx of HHC or SNF. Pt states no concerns with going home at time of discharge. 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 Pt states smokes cigarettes daily and occasionally drinks ETOH. Pt states no further concerns/needs. CM to follow for any further discharge planning/needs. Advised pt to ask for CM if any further questions/concerns/needs arise, voices understanding. Pt Goal: Home Plan[place] SHWETA GALINDO
--- NOTE | 2021-10-31 11:48 | CASEMGMT ---
Social Work Consult: PHQ-9 assessment Referral source: Self referral. This social sciences chair met with patient in room. Introduced self and social sciences chair role. Patient agreeable to speak with this social sciences chair. See attached PHQ-9 assessment completed with a score of . Patient denies any concerns on returning to home. PLAN: Discharge to home Doug CALDERON, MONTEZ-S
--- NOTE | 2021-10-31 12:51 | CDU_ITS ---
Reason For Study: CVA Rt. Velocities/BP Lt. Velocities/BP Prox CCA 120.4/26.5 cm/sec. Prox CCA 104.7/11.5 cm/sec. Mid CCA 112/27.9 cm/sec. Mid CCA 79.1/9.7 cm/sec. Dist CCA 117.4/33.4 cm/sec. Dist CCA 56.9/10.2 cm/sec. Prox ICA 95/31.4 cm/sec. ICA, No flow. Mid ICA 97.2/33.6 cm/sec. Prox ECA 112/17 cm/sec. Dist ICA 125.8/44.6 cm/sec. Lt. Vert. 77.8/24.8 cm/sec. Rt. ICA/CCA = 1.07. Prox ECA 134.5/13.8 cm/sec. Rt. Vert. 56.9/15.1 cm/sec. Right Extracranial There is homogeneous, smooth atherosclerotic plaque noted in the right common carotid artery. There is heterogeneous, irregular atherosclerotic plaque noted in the right internal carotid artery. There is intimal thickening but no significant atherosclerotic plaque noted in the right external carotid artery. Antegrade flow is noted in the right vertebral artery. Left Extracranial There is homogeneous, smooth atherosclerotic plaque noted in the left common carotid artery. There is heterogeneous, irregular atherosclerotic plaque noted in the left internal carotid artery. Left ICA throughout, no flow noted. There is heterogeneous, irregular atherosclerotic plaque noted in the left external carotid artery. Antegrade flow is noted in the left vertebral artery. Procedure Carotid Duplex 34578. This is a Carotid Duplex examination using B-mode, color flow and specral Doppler. Preliminary report to PCU nanny/household manager. Exam performed in department. VL/Carotid Duplex Ultrasound Interpretation Summary Irregular calcific plaque at the proximal right internal carotid artery with le ss than 50% stenosis of the proximal internal carotid artery Less than 50% stenosis right external carotid artery Extensive plaque at the proximal left internal carotid artery with no flow iden tified Less than 50% stenosis left external carotid artery Patent and antegrade vertebral arteries bilaterally Ordering Physician: Roosevelt Kruse Referring Physician: Dianna Craft M.D. Performed By: Rosie Garza RVT
--- NOTE | 2021-10-31 14:07 | DCINST_ITS ---
Discharge Instructions Diet Discharge Diet: Low fat / Low cholesterol Activity Discharge Activity: Return to Normal Activity Dressing / Incision Call your doctor if you observe: Fever of 101 or Higher, Shortness of breath, Dizziness, Fainting spells, Swelling in the ankles, Chest pain and Increased palpitations (irregular heartbeat) Follow Up Care Test Results: Test results from this visit will be discussed in further detail at your follow- up appointment, if applicable. Discharge Plan Admission Admit Date/Time: 10/30/21 19:55 Attending Provider: Roosevelt Kruse Primary Care Provider: Dianna Craft Discharge Orders/Prescriptions Prescriptions: New atorvastatin 80 mg Tablet 80 mg PO QHS Qty: 30 0RF clopidogrel 75 mg Tablet 75 mg PO DAILY Qty: 30 0RF Continued aspirin 81 mg Tablet,Delayed Release (Dr/Ec) 81 mg PO DAILY@0800 Other Ambulatory Orders: 30 Day Event Recorder Preventi (Routine) Location: None Selected Ordered By: Dr. Roosevelt Kruse Referrals / Follow Up: Alfonso García MD [STAFF PHYSICIAN] - Within 1 Month Dianna Craft MD [Primary Care Provider] - Within 1 Week Andrey Whitten MD [STAFF PHYSICIAN] - Within 1 Month Disposition Disposition (needs filled in before D/C Order can be placed): Home, Self Care
--- NOTE | 2021-10-31 14:13 | DS.PCM_ITS ---
Providers Date of Admission: 10/30/21 Primary Care Physician: Dr. Dianna Craft MD Reason For Visit: TIA Diagnosis Discharge Diagnosis (1) TIA (transient ischemic attack): Status: Acute Code(s): G45.9 - Transient cerebral ischemic attack, unspecified Plan 1. TIA versus CVA ? All of the symptoms has resolved and is now an NIH of 0 ? We will continue with the stroke protocol ? Continue with aspirin and Plavix ? Continue with statin ? We will obtain an MRI and an echo ? PT and OT are also going to see him 2. CAD status post stent/HLD ? We will continue with Lipitor, blood pressures are currently stable but will let him ride high for permissive hypertension ? She does have labetalol on board in case his blood pressures climb 2. Tobacco use ? Counseled on cessation DVT: Ambulation Medications at Discharge Home Medications aspirin 81 mg tablet,delayed release 81 mg PO DAILY@0800 HEALTH MAINTENANCE 10/30/21 atorvastatin 80 mg tablet 80 mg PO QHS #30 tabs 10/31/21 clopidogrel 75 mg tablet 75 mg PO DAILY #30 tabs 10/31/21 Hospital Course Operations None Procedures 2-D Echocardiogram Summary of Care Provided Minutes Spent on Discharge: 38 Hospital Course: Per HPI: LORRI COUGHLIN, is a 61 M who presents to the hospital with numbness and tingling in his right arm and leg as well as a facial droop on his right face and slurred speech.? This occurred at work and resolved very quickly however he was brought to the ER.? In the ER he had none of the symptoms and says that he is back to baseline, NIH of 0.? He does have a cardiac history with a stent but he is only on aspirin because he says that Plavix was too expensive.? And even then he has hyperlipidemia and a history of CAD he does not appear to be on a statin either. Hospital Course: 1.? Punctate infarcts in the left MCA distribution may be embolic in nature ? All of the symptoms has resolved and is now an NIH of 0 ? We will continue with the stroke protocol ? Continue with aspirin and Plavix ? Continue with statin ? MRI was positive for CVA in his left MCA, echo was unremarkable and bubble study was negative ? Given his positive CVA a carotid Doppler was obtained which showed a less than 50% stenosis in his right internal carotid, but his left internal carotid is read to be occluded ? Discussed with him the plan for discharge today he expressed understanding of the risk benefits of going home I did express to him the importance of being on a statin as well as dual antiplatelets given the severity of his disease. We will also send him on a 30-day event monitor given the embolic nature of his stroke will need to confirm either absence or presence of A. fib ? We will have him follow-up as an outpatient with neurology and vascular surgery. I also recommend that he follow-up with his PCP in 3 to 5 days ? Improved faster than anticipated 2.? CAD status post stent/HLD ? We will continue with Lipitor, blood pressures are currently stable but will let him ride high for permissive hypertension ? She does have labetalol on board in case his blood pressures climb 2.? Tobacco use ? Counseled on cessation Physical Exam Narrative Const alert, oriented x3 and no apparent distress General Appearance: cooperative HEENT normocephalic and moist oral mucous membranes Eyes PERRL, EOMs intact bilaterally and conjunctivae normal Neck supple and no JVD Resp normal respiratory effort, no retractions, no use of accessory muscles and clear to auscultation bilaterally Auscultation: Negative for crackles, rales, rhonchi or wheezes Cardio regular rate, regular rhythm, S1 normal heart sound, S2 normal heart sound and no murmurs GI soft to palpation, non-tender and non-distended; Negative for hepatosplenomegaly Extremity no clubbing, cyanosis or edema Skin no rashes or lesions noted Neuro CN's II-XII intact bilaterally, moves all extremities, no focal motor deficits and no sensory deficits noted Psych affect normal Appearance: appropriate Weight / BMI Weight Weight: 161 lb 10.287 oz Body Mass Index (BMI) 23.8 ABG / Lab / Microbiology Data Result Diagrams: 10/31/21 06:07 10/31/21 06:07 Laboratory: Laboratory Results - last 24 hr 10/31/21 06:07: WBC 7.4, RBC 4.76, Hgb 15.0, Hct 43.9, MCV 92.2, MCH 31.5, MCHC 34.2, RDW Std Deviation 42.0, RDW Coeff of Marcos 12.3, Plt Count 232, MPV 9.8, Immature Gran % (Auto) 0.300, Neut % (Auto) 66.6, Lymph % (Auto) 18.5 L, [place] % (Auto) 11.8 H, Eos % (Auto) 2.3, Baso % (Auto) 0.5, Absolute Neuts (auto) 4.9, Absolute Lymphs (auto) 1.36, Nucleated RBC % 0 10/31/21 06:07: Sodium 136, Potassium 3.6, Chloride 105, Carbon Dioxide 25.0, Anion Gap 6, BUN 14, Creatinine 0.79, Estim Creat Clear Calc 96.95, Est GFR (MDRD) Af Amer 128, Est GFR (MDRD) Non-Af 106, BUN/Creatinine Ratio 17.7, Glucose 91, Calcium 8.8, Triglycerides 98, Cholesterol 176, LDL Cholesterol 128, VLDL Cholesterol 20, HDL Cholesterol 28 L Radiography Diagnostic Testing: Radiology Impression Brain CT 10/30/21 12:42 IMPRESSION: Normal unenhanced CT scan of the brain. Mucosal thickening of the ethmoid sinuses and the sphenoid sinus. N.B. : The above Results were Read Back by Raphael Perkins MD to Yesica [facility] and understanding confirmed on 10/30/2021 13:25:40 (ET). Electronically Signed: Raphael Perkins MD at 13:26 EDT , ADDENDUM: 10/30/21 1333 IMPRESSION: Normal unenhanced CT scan of the brain. Mucosal thickening of the ethmoid sinuses and the sphenoid sinus. N.B. : The above Results were Read Back by Raphael Perkins MD to Yesica Smiley and understanding confirmed on 10/30/2021 13:25:40 (ET). Electronically Signed: Raphael Perkins MD at 13:26 EDT , ADDENDUM: 10/30/21 1708 IMPRESSION: undefined Echocardiogram 10/30/21 15:16 Interpretation Summary The study was technically difficult. Left ventricular systolic function is normal. The estimated ejection fraction is 60 %. There is mild mitral annular calcification. Trivial mitral valve insufficiency. Trivial tricuspid valve insufficiency. Unable to estimate RV systolic pressure/pulmonary artery pressure due to technically difficult study. Diastolic function is indeterminate. Bubble contrast study negative for right to left interatrial shunt. Ordering Physician: Roosevelt Kruse Referring Physician: Dianna Craft M.D. Performed By: Raven Mcintyre RCS Brain MRI 10/30/21 18:48 IMPRESSION: Punctate infarcts in the left MCA distribution may be embolic in nature. This is an acute finding. Critical finding called and case discussed. Electronically Signed: Hever Fleming MD at 19:55 EDT , ADDENDUM: 10/30/212015 IMPRESSION: Punctate infarcts in the left MCA distribution may be embolic in nature. This is an acute finding. Critical finding called and case discussed. N.B. : The above Results were Read Back by Hever Fleming MD to Shi Taylor RN, RN, and understanding confirmed on 10/30/2021 20:10:04 (ET). Electronically Signed: Hever Fleming MD at 19:55 EDT , D/C Instructions Discharge Diet: Low fat / Low cholesterol Call your doctor if you observe: Fever of 101 or Higher, Shortness of breath, Dizziness, Fainting spells, Swelling in the ankles, Chest pain and Increased palpitations (irregular heartbeat) Meaningful Use Info Meaningful Use Diagnoses (Choose all that apply): None applicable Discharge Plan Admission Admit Date/Time: 10/30/21 19:55 Attending Provider: Roosevelt Kruse Primary Care Provider: Dianna Carft Discharge Orders/Prescriptions Prescriptions: New atorvastatin 80 mg Tablet 80 mg PO QHS Qty: 30 0RF clopidogrel 75 mg Tablet 75 mg PO DAILY Qty: 30 0RF Continued aspirin 81 mg Tablet,Delayed Release (Dr/Ec) 81 mg PO DAILY@0800 Other Ambulatory Orders: 30 Day Event Recorder Preventi (Routine) Location: None Selected Ordered By: Dr. Roosevelt Kruse Referrals / Follow Up: Alfonso García MD [STAFF PHYSICIAN] - Within 1 Month Dianna Craft MD [Primary Care Provider] - Within 1 Week Andrey Whitten MD [STAFF PHYSICIAN] - Within 1 Month Disposition Disposition (needs filled in before D/C Order can be placed): Home, Self Care Charges/Coding Visit Charges Inpatient E&M: 21527 Disch Hosp
--- NOTE | 2021-10-31 15:30 | CASEMGMT ---
Pt has been independent in room and declined therapy evals. Pt states no concerns with going home at time of discharge. Lori ROCK CM
--- NOTE | 2021-10-31 16:41 | NURSING ---
Pt discharged home. PIV removed per policy. Patient refused wheelchair at discharge and ambulated off the unit to front entrance to awaiting ride.
== END 2021-10-31 16:38 | disposition home or self-care (01) | DRG 66 ==
LOC: ED 14:00 → PCU 15:00
PROVIDERS: Admitting Provider Family Medicine; Emergency Provider Emergency Medicine; PCP Internal Medicine; Visit Provider Family Medicine
DX: I63.412 Cerebral infarction due to embolism of left middle cerebral artery (principal); E78.5 Hyperlipidemia, unspecified; F17.210 Nicotine dependence, cigarettes, uncomplicated; I25.10 Atherosclerotic heart disease of native coronary artery without angina pectoris; I25.2 Old myocardial infarction; Z79.82 Long term (current) use of aspirin; Z95.5 Presence of coronary angioplasty implant and graft; R29.700 NIHSS score 0
CPT/HCPCS: 36415; 70450; 70551; 71045; 80048; 80061; 84484; 85025; 85610; 85730; 92610; 93005; 93306; 93880; 99283; 99406; A4216

== ENCOUNTER → 2022-02-07 | Outpatient (CLI) | payer OTHER, SELFPAY ==
--- NOTE | 2022-02-07 07:56 | US_ITS ---
PROCEDURES: ULTRASOUND AORTA REASON FOR EXAM: Male, 62 years old. Pulsatile abdominal mass, usp smoker TECHNIQUE: Ultrasound evaluation of the aorta was performed with real-time and static portillo-scale imaging. COMPARISON: None. FINDINGS: There is atherosclerotic plaque formation of the abdominal aorta. Aorta measures: Proximal 3.0 cm. Middle 5.6 cm. Distal 5.1 cm. Aorta measure transversely: Proximal 3.2 cm. Middle 4.6 cm. Distal 6.2 cm. Right iliac artery measures: 2.1 cm. Right iliac artery measure transversely: 1.4 cm. Left iliac artery measures: 2.3 cm. Left iliac artery measure transversely: 1.3 cm. Fusiform infrarenal abdominal aortic aneurysm with a transverse dimension of 6.2 cm.. US/Aorta IMPRESSION: Fusiform infrarenal abdominal aortic aneurysm with a transverse dimension of 6.2 cm there Aneurysmal dilatation of the right common iliac artery. Electronically Signed: Raphael Perkins MD at 10:14 EDT ,
[2022-02-07 08:47] LABS: ALB/GLOB Ratio 1.1 RATIO (0.9-2.4); AST(SGOT) 11 U/L (15-37); Alanine Aminotransfer ALT/SGPT 20 U/L (16-61); Alkaline Phosphatase 110 U/L (45-117); Anion Gap 5 (5-15); BUN 14 mg/dL (7-18); BUN/Creat Ratio 18.8 RATIO (10-20); Calcium,Total 8.7 mg/dL (8.5-10.1); Chloride 112 mmol/L (98-107); Creatinine, Serum 0.74 mg/dL (0.70-1.30); EST Glomerular Filtration Rate 113 mL/min (>60); Est Glom Filt Rate - Afr Amer 137 mL/min (>60); Globulin 3.5 g/dL (2.2-4.2); Glucose 107 mg/dL (74-106); PSA,Total - Annual Screen 1.13 ng/mL (0.00-4.00); Protein, Total 7.5 g/dL (6.4-8.2); Sodium Level 143 mmol/L (136-145)
[2022-02-07 09:30] LABS: Vitamin D,25 Hydroxy 25.6 ng/mL
== END | disposition home or self-care (01) ==
PROVIDERS: PCP Internal Medicine; Referring Provider Internal Medicine; Visit Provider Internal Medicine
DX: E55.9 Vitamin D deficiency, unspecified (principal); I77.9 Disorder of arteries and arterioles, unspecified; G45.9 Transient cerebral ischemic attack, unspecified; E78.5 Hyperlipidemia, unspecified; R19.00 Intra-abdominal and pelvic swelling, mass and lump, unspecified site; F17.200 Nicotine dependence, unspecified, uncomplicated; Z12.5 Encounter for screening for malignant neoplasm of prostate
CPT/HCPCS: 36415; 76775; 80053; 82306; 84153; G0103

== ENCOUNTER → 2022-02-19 | Outpatient (CLI) | payer OTHER, SELFPAY ==
--- NOTE | 2022-02-19 07:49 | CT_ITS ---
STUDY: CTA ABDOMEN AND PELVIS WITH CONTRAST REASON FOR EXAM: Male, 62 years old. Abdominal aortic aneurysm. RADIATION DOSAGE (If Supplied By Facility): CTDIvol = ( 23.5 ) mGy, DLP = ( 569.63 ) mGycm TECHNIQUE: Transaxial images were obtained from the dome of the diaphragm to the symphysis pubis without oral contrast. IV 100mL Isovue-370 was administered. Sagittal and coronal images were reconstructed. Individualized dose optimization techniques were used for this CT. COMPARISON: Comparison is made with prior sonogram dated 02/07/2022. FINDINGS: The visualized lung bases are unremarkable. Coronary artery calcification. There is decreased attenuation of the liver consistent with steatosis. Normal gallbladder and extrahepatic biliary system. Normal spleen. Normal pancreas. Normal bilateral adrenal glands. Normal right kidney. Normal left kidney. Normal visualized stomach. Normal small intestine. There are multiple colonic diverticula consistent with diverticulosis. The appendix is visualized and appears normal. There is evidence of a fusiform infrarenal abdominal aortic aneurysm with a transverse dimension of 6.5 cm. Mural thrombus is seen. Prominence of the right common iliac artery measuring 1.6 cm. Normal inferior vena cava. Normal retroperitoneum. Normal urinary bladder. There are prostatic calcifications. Normal abdominal wall. There are degenerative changes of the visualized lumbar spine. CT/CT ANGIO ABD&PEL W/O&W/DYE IMPRESSION: Infrarenal fusiform abdominal aortic aneurysm with a transverse dimension of 6.5 cm. Marrow thrombus is seen. Dilatation of the right common iliac artery. Fatty infiltration of the liver. Electronically Signed: Raphael Perkins MD at 12:42 EDT ,
== END | disposition home or self-care (01) ==
PROVIDERS: PCP Internal Medicine; Referring Provider Surgery; Visit Provider Surgery
DX: I71.40 Abdominal aortic aneurysm, without rupture, unspecified (principal)
CPT/HCPCS: 74174; Q9967

== ENCOUNTER 2023-01-07 19:18 | Inpatient (IN) | payer SELFPAY ==
[2023-01-07 19:18] VITALS: BP 198/117; PULSE 102; RESP 16; TEMP 36.1; O2SAT 98; BMI 22.7
--- NOTE | 2023-01-07 20:01 | EKG12_ITS ---
Test Reason : SOB Blood Pressure : / mmHG Vent. Rate : 096 BPM Atrial Rate : 096 BPM P-R Int : 142 ms QRS Dur : 084 ms QT Int : 362 ms P-R-T Axes : 057 059 079 degrees QTc Int : 457 ms Normal sinus rhythm Possible Left atrial enlargement Left ventricular hypertrophy ( Sokolow-Carlson , [place] product ) Nonspecific T wave abnormality Abnormal ECG Confirmed by ARAMIS OSBORNE, FOREIGN ([id number]), publications editor TIFF LUNA ([id number]) on 01/08/2023 1:15:32 PM Referred By: Confirmed By:FOREIGN SELF MD
--- NOTE | 2023-01-07 20:01 | ED.VIS.DYS ---
HPI History of Present Illness Chief Complaint: Shortness of Breath Narrative Narrative: 62-year-old male past medical history of coronary artery disease with stenting, AAA that has also been stented, presents with 3 weeks of shortness of breath, and coughing up phlegm. He states that for the past 3 weeks he has been sick with bronchitis type symptoms. He is already been told by his primary care provider, Dr. Bailey, that he needs to quit smoking. He went to urgent care and [place] a few days ago on Thursday, where he states they started him on 2 antibiotics and steroids. He has been using his inhaler without relief and he still feels short of breath. However he denies any chest pain, nausea, vomiting, or sweating. He states he does not take anything for his blood pressure because he never needed to but noticed yesterday that his blood pressure was elevated. He presents because of the shortness of breath that has had for 3 weeks. He states Mucinex has been helping him. [facility] Medical History (Updated 01/07/23 @ 21:48 by Thomas Snell MD) Atherosclerotic heart disease of [place] coronary artery without angina pectoris History of ST elevation myocardial infarction (STEMI) (03/22/20) Nicotine dependence Non-sustained ventricular tachycardia (03/24/20) Old inferior wall myocardial infarction (03/22/20) Home Medications aspirin 81 mg tablet,delayed release 81 mg PO DAILY@0800 HEALTH MAINTENANCE 10/30/21 [History Last Taken 10/30/21] atorvastatin 80 mg tablet 80 mg PO QHS #90 tabs 12/02/21 [Rx Last Taken Unknown] clopidogrel 75 mg tablet 75 mg PO DAILY #90 tabs 12/02/21 [Rx Last Taken Unknown] Allergy/AdvReac Type Severity Reaction Status Date / Time No Known Allergies Allergy Verified 01/07/23 19:20 Family History Father Colon cancer Surgical History History of coronary artery stent placement (03/22/20) Social History Smoking Status: Current every day smoker tobacco type: cigarettes Tobacco: How many years used: 40 alcohol intake: never substance use type: does not use what type of physical activity do you participate in: none ROS ROS ED ROS Narrative Constitutional: No fever, no chills. HEENT: No sore throat. No neck pain. No loss of vision. No rhinorrhea. Cardiovascular: No chest pain. No palpitations. No pedal edema. Respiratory: Occasionally productive cough, positive shortness of breath. Abdominal: No abdominal pain. No nausea. No vomiting. Genitourinary: No dysuria. No hematuria. Musculoskeletal: No myalgias. No arthralgias. Neurologic: No headaches. No dizziness. No lightheadedness. Skin: No rash. No change in color. Psychiatric: No depression. No anxiety. EXAM Physical Exam Const Vital Signs: 01/07/23 19:18 01/07/23 19:36 01/07/23 20:20 Temperature 97 F L Temperature Source Oral Pulse Rate 102 H Respiratory Rate 16 Respiratory Effort Normal Respiratory Depth Normal Respiratory Pattern Normal Blood Pressure 198/117 H Blood Pressure Mean 144 Pulse Ox 98 Oxygen Delivery Method Room Air Room Air 01/07/23 20:18 01/07/23 20:23 01/07/23 20:32 Temperature Temperature Source Pulse Rate 94 Respiratory Rate 93 H Respiratory Effort Respiratory Depth Respiratory Pattern Blood Pressure 168/114 H 174/95 H 158/92 H Blood Pressure Mean 132 121 114 Pulse Ox Oxygen Delivery Method MDM MDM MDM Narrative Medical decision making narrative: Comprehensive work-up was pursued. For his blood pressure of 198/117, he was administered hydralazine. I do feel chest x-ray lab work is indicated to help rule out pneumonia or other causes of his shortness of breath. Although pneumothorax is in the differential, his history and physical is not suggestive of that. Did review his prior records. His medication list does not list any antihypertensive but given his history of coronary artery disease, prior MD, TIA, AAA repair, I do find it questionable that he is not on any antihypertensives. EKG was obtained and interpreted by myself independently as normal sinus rhythm at 96 bpm without ectopy or acute ST changes. No STEMI. There is no significant change from an EKG dated October 30, 2021 with the exception of left ventricular hypertrophy by voltage criteria. I reviewed his laboratory work from today and he has an elevated white count of 17.9 with hemoglobin 12.0, hematocrit 33.8, platelet count normal at 230. BMP was obtained and he has normal sodium of 137, potassium normal at 3.7 with BUN elevated 21 and an acute kidney injury with a creatinine of 1.4, above his baseline. Glucose is normal at 105 with normal anion gap of 6. Of significance is slightly elevated troponin of 127, but this may be secondary to his acute kidney injury. While his blood pressure was elevated at 198/117 after 10 mg of hydralazine intravenously, he has resultant blood pressure of 158/92. Chest x-ray in 1 view interpreted by myself does show bilateral fluffy infiltrates consistent with interstitial edema more so than infectious process. He has already been taking antibiotics from the urgent care since Thursday. He is not febrile here. With the suspicion of acute onset of congestive heart failure, BNP was obtained and is elevated at 1010. He was administered Lasix 40 mg intravenously and 324 mg of aspirin. At this point in time, I do feel that he merits admission. Patient was discussed with Dr. Henriquez for admission to the PCU. Patient is in stable condition. History & Record Review Discussion w/independent historian: Patient Additional record(s) reviewed:: Prior ED visit Lab Data Attestation: I reviewed the patient's lab results. Labs: Laboratory Results - last 24 hr 01/07/23 20:13 WBC 17.9 H RBC 3.51 L Hgb 12.0 L Hct 33.8 L MCV 96.3 H MCH 34.2 H MCHC 35.5 RDW Std Deviation 46.8 H RDW Coeff of Marcos 13.4 Plt Count 230 MPV 9.5 Immature Gran % (Auto) 0.600 Neut % (Auto) 75.3 H Lymph % (Auto) 13.7 L [place] % (Auto) 10.1 H Eos % (Auto) 0.1 Baso % (Auto) 0.2 Absolute Neuts (auto) 13.5 H Absolute Lymphs (auto) 2.45 Nucleated RBC % 0 Differential Comment SCANNED Diff Path Review May foll Sodium 137 Potassium 3.7 Chloride 103 Carbon Dioxide 28.0 Anion Gap 6 BUN 21 H Creatinine 1.41 H Estim Creat Clear Calc 53.00 Est GFR (MDRD) Af Amer 65 Est GFR (MDRD) Non-Af 54 L BUN/Creatinine Ratio 14.9 Glucose 105 Calcium 8.7 Troponin I High Sens 127 H* B-Natriuretic Peptide 1010.2 H Radiography Diagnostic Testing: Clinical Impression(s) from Imaging Studies Chest X-Ray 01/07/23 20:25 IMPRESSION: Mild interstitial edema or infiltrates. Small pleural effusions. Electronically Signed: Giorgio Tamayo MD at 20:43 EDT , Management Discussion w/another healthcare provider: Hospitalist Discharge Plan Dx/Rx/DC Orders Clinical Impression: Hypertensive urgency, Nicotine dependence, CHF (congestive heart failure), Elevated troponin Disposition Disposition: Acute Care Hospital [facility] [place] [facility]
[2023-01-07] MEDS: Ipratropium/Albuterol Sulfate 3 ML AMPUL.NEB INHALATION (20:09)
[2023-01-07 20:18] VITALS: BP 168/114; RESP 93
[2023-01-07] MEDS: hydrALAZINE 20 MG/ML Vial 10 MG IV (20:18)
[2023-01-07 20:23] VITALS: BP 174/95; PULSE 94
[2023-01-07 20:25] LABS: Absolute Lymphocyte Count 2.45 X10^3/uL (0.83-4.51); Absolute Neutrophil Count 13.5 X10^3/uL (2.0-7.7); Basophil# 0.04 X10^3/uL; Basophil% 0.2 % (0-1); Eosinophil# 0.01 X10^3/uL; Eosinophils% 0.1 % (0-5); Hematocrit 33.8 % (40-54); Lymphocyte # 2.45 X10^3/ul (0.83-4.51); Lymphocyte % 13.7 % (19-41); Mean Corp Hgb Conc 35.5 g/dL (32-36); Mean Corpuscular Hgb 34.2 pg (27.0-32.0); Mean Corpuscular Volume 96.3 fL (80-94); Mean Platelet Vol. 9.5 fl (6.2-12.0); Monocyte# 1.81 X10^3/uL; Monocyte% 10.1 % (0-10); NRBC Flagged by Analyzer 0 % (0-5); Neutrophil # 13.51 X10^3/uL (2.7-7.7); Neutrophil % 75.3 % (47-70); POSITIVE DIFFERENTIAL YES; Platelet Count 230 K/mm3 (150-450); RBC Distribution Width CV 13.4 % (11.6-14.6); RBC Distribution Width SD 46.8 fl (35.1-43.9); Red Blood Count 3.51 M/mm3 (4.6-6.2); White Blood Count 17.9 K/mm3 (4.4-11.0)
--- NOTE | 2023-01-07 20:25 | RAD_ITS ---
STUDY: X-RAY CHEST REASON FOR EXAM: Male, 62 years old. Shortness of Breath TECHNIQUE: Single AP portable view of the chest. COMPARISON: October 30, 2021 FINDINGS: There are monitoring devices. There are mild mid and lower lung interstitial increased opacities. There are small pleural effusions. Normal size heart. Normal mediastinum and jenifer. Normal visualized pulmonary arteries. Normal visualized aortic arch and descending thoracic aorta. Normal visualized thoracic spine. Normal visualized ribs, clavicles, and shoulders. There is no demonstrated abnormality of the visualized soft tissue structures of the upper abdomen. RAD/Chest 1 View (Portable) IMPRESSION: Mild interstitial edema or infiltrates. Small pleural effusions. Electronically Signed: Giorgio Tamayo MD at 20:43 EDT ,
[2023-01-07 20:29] LABS: Differential Indicated SCAN CRITERIA MET
[2023-01-07 20:32] VITALS: BP 158/92
[2023-01-07 20:51] LABS: Anion Gap 6 (5-15); BUN 21 mg/dL (7-18); BUN/Creat Ratio 14.9 RATIO (10-20); Calcium,Total 8.7 mg/dL (8.5-10.1); Chloride 103 mmol/L (98-107); Creatinine, Serum 1.41 mg/dL (0.70-1.30); EST Glomerular Filtration Rate 54 mL/min (>60); Est Glom Filt Rate - Afr Amer 65 mL/min (>60); Glucose 105 mg/dL (74-106); Potassium 3.7 mmol/L (3.5-5.1); Sodium Level 137 mmol/L (136-145); Troponin-I HS 127 pg/mL (3.0-78.0)
[2023-01-07 20:52] LABS: Differential Comment SCANNED
[2023-01-07] MEDS: Aspirin 81 MG TAB.CHEW 324 MG PO (21:10)
[2023-01-07 21:25] LABS: BNP,B-Type NATRIURETIC PEPTIDE 1010.2 pg/mL (0-100)
--- NOTE | 2023-01-07 21:54 | PCM.HP.STD ---
HPI - General General Date of Admission: 01/07/23 Date of Service: 01/07/23 Chief Complaint: Shortness of breath HPI Narrative LORRI COUGHLIN, is a 62 M with a significant history of CAD status post stent; and AAA who presents to the emergency department with 3-week history of progressively worsening shortness of breath. Associated with his symptoms is a productive cough. Patient is still on antibiotics and steroids obtained from a visit to the urgent care. [facility] Medical History (Updated 01/08/23 @ 10:[address] Cesar Henriquez MD) Atherosclerotic heart disease of [place] coronary artery without angina pectoris History of ST elevation myocardial infarction (STEMI) (03/22/20) Nicotine dependence Non-sustained ventricular tachycardia (03/24/20) Old inferior wall myocardial infarction (03/22/20) Home Medications aspirin 81 mg tablet,delayed release 81 mg PO DAILY@0800 HEALTH MAINTENANCE 10/30/21 [History Last Taken 10/30/21] atorvastatin 80 mg tablet 80 mg PO QHS hyperlipidemia #90 tabs 12/02/21 [Rx Last Taken Unknown] Allergy/AdvReac Type Severity Reaction Status Date / Time No Known Allergies Allergy Verified 01/07/23 19:20 Family History Father Colon cancer Surgical History History of coronary artery stent placement (03/22/20) Social History Smoking Status: Current every day smoker tobacco type: cigarettes Tobacco: How many years used: 40 alcohol intake: never substance use type: does not use what type of physical activity do you participate in: none ROS ROS Narrative Pertinent positives and pertinent negatives as noted in HPI. All other systems were reviewed and are negative Vital Signs Vital Signs Vital Signs: 01/07/23 19:18 01/07/23 19:36 01/07/23 20:20 Temperature 97 F L Temperature Source Oral Pulse Rate 102 H Respiratory Rate 16 Respiratory Effort Normal Respiratory Depth Normal Respiratory Pattern Normal Blood Pressure 198/117 H Blood Pressure Mean 144 Pulse Ox 98 Oxygen Delivery Method Room Air Room Air 01/07/23 20:18 01/07/23 20:23 01/07/23 20:32 Temperature Temperature Source Pulse Rate 94 Respiratory Rate 93 H Respiratory Effort Respiratory Depth Respiratory Pattern Blood Pressure 168/114 H 174/95 H 158/92 H Blood Pressure Mean 132 121 114 Pulse Ox Oxygen Delivery Method Weight Weight: 69.882 kg Body Mass Index (BMI) 22.7 Physical Exam Narrative Physical exam: General: Well-nourished, well-developed. Head: Normocephalic, atraumatic, no tenderness Eyes: Vision is grossly intact. EOMI ENT, no trauma, moist mucous membranes, no rhinorrhea Neck: Nontender, No thyromegaly. CVS: Regular rate and rhythm. S1-S2 present. No murmur, gallop or rub. Respiratory : Blood tinged sputum diminished. Chest wall nontender Abdomen: Soft, nontender, nondistended, normal bowel sounds, no masses : Deferred Back: Nontender, no CVA tenderness. Extremities: Nontender full range of motion, no trauma Skin: Normal color, no trauma, abrasions Neuro: Alert, oriented, cranial nerves II through XII grossly intact. Psychiatry: Normal mood. Normal affect. Not depressed. Not anxious. Results Lab / Micro Data 01/08/23 05:38 01/08/23 05:38 Labs: Laboratory Results - last 24 hr 01/07/23 20:13: WBC 17.9 H, RBC 3.51 L, Hgb 12.0 L, Hct 33.8 L, MCV 96.3 H, MCH 34.2 H, MCHC 35.5, RDW Std Deviation 46.8 H, RDW Coeff of Marcos 13.4, Plt Count 230, MPV 9.5, Immature Gran % (Auto) 0.600, Neut % (Auto) 75.3 H, Lymph % (Auto) 13.7 L, [place] % (Auto) 10.1 H, Eos % (Auto) 0.1, Baso % (Auto) 0.2, Absolute Neuts (auto) 13.5 H, Absolute Lymphs (auto) 2.45, Nucleated RBC % 0, Differential Comment SCANNED, Diff Path Review August, Sodium 137, Potassium 3.7, Chloride 103, Carbon Dioxide 28.0, Anion Gap 6, BUN 21 H, Creatinine 1.41 H, Estim Creat Clear Calc 53.00, Est GFR (MDRD) Af Amer 65, Est GFR (MDRD) Non-Af 54 L, BUN/Creatinine Ratio 14.9, Glucose 105, Calcium 8.7, Troponin I High Sens 127 H*, B-Natriuretic Peptide 1010.2 H Radiology Impression Chest X-Ray 01/07/23 20:25 IMPRESSION: Mild interstitial edema or infiltrates. Small pleural effusions. Electronically Signed: Giorgio Tamayo MD at 20:43 EDT Reading Location ID and State: [address] [place] [address] , Service support , Assessment & Plan Assessment/Plan (1) Elevated troponin: (2) CHF (congestive heart failure): QUALIFIERS: Heart failure type: diastolic Heart failure chronicity: acute on chronic Qualified Code(s): I50.33 - Acute on chronic diastolic (congestive) heart failure (3) Hypertensive urgency: PLAN: Plan Acute on chronic heart failure with preserved ejection fraction. Place on monitored bed on progressive care unit Weight on admission to the floor; and then daily Strict I&O's CXR independently interpreted confirms mild interstitial edema or infiltrates plus small pleural effusions. Agrees with radiology interpretation. Emergency department labs reviewed confirms BNP of 1010.2 Diuresis with Lasix 40 mg IV twice daily. Transthoracic echocardiogram to evaluate left ventricular wall motion and systolic function. Monitor electrolytes and renal function Trend blood pressure Fluid restriction of 1500 mls daily 2 g cardiac diet Hypertensive urgency Patient reports not being on home blood pressure medication. Started patient on amlodipine. Hydralazine as needed ordered. Trend blood pressures. SHONA Creatinine on presentation was 1.41. Review of previous labs shows creatinine baseline of less than 1. Likely cardiorenal syndrome. IV Lasix as above. Trend. Elevated troponin Initial troponin 144. Trended, flat. Likely secondary to demand ischemia from acute on chronic heart failure. DVT Prophylaxis: Subcutaneous Lovenox ordered. Time spent in the patient's overall evaluation,decision-making process, review of diagnostic data, adjustment of management, discussion with other providers, nursing nursing and ancillary staff involved in patient's care documentation, 70 minutes. Charges/Coding Visit Charges Inpatient E&M: 33152 Init Hosp L3
[2023-01-07] MEDS: Furosemide 40 MG/4 ML Vial IV (22:08)
[2023-01-07 22:38] VITALS: BP 171/87; PULSE 93; RESP 34; TEMP 36.9
[2023-01-07] MEDS: Acetaminophen 325 MG Tablet 650 MG PO (22:44)
[2023-01-08 00:44] LABS: Troponin-I HS 144 pg/mL (3.0-78.0)
[2023-01-08] MEDS: amLODIPine 5 MG Tablet PO ×2 (02:12→11:22)
[2023-01-08 02:16] LABS: Troponin-I HS 150 pg/mL (3.0-78.0)
[2023-01-08 05:46] LABS: Absolute Lymphocyte Count 2.18 X10^3/uL (0.83-4.51); Absolute Neutrophil Count 8.2 X10^3/uL (2.0-7.7); Basophil# 0.03 X10^3/uL; Basophil% 0.2 % (0-1); Eosinophil# 0.01 X10^3/uL; Eosinophils% 0.1 % (0-5); Hematocrit 31.4 % (40-54); Hemoglobin 11.2 g/dL (13.0-16.5); Lymphocyte # 2.18 X10^3/ul (0.83-4.51); Lymphocyte % 17.8 % (19-41); Mean Corp Hgb Conc 35.7 g/dL (32-36); Mean Corpuscular Volume 95.4 fL (80-94); Mean Platelet Vol. 9.4 fl (6.2-12.0); Monocyte# 1.76 X10^3/uL; Monocyte% 14.4 % (0-10); NRBC Flagged by Analyzer 0 % (0-5); POSITIVE DIFFERENTIAL YES; Platelet Count 220 K/mm3 (150-450); RBC Distribution Width CV 13.3 % (11.6-14.6); RBC Distribution Width SD 46.5 fl (35.1-43.9); Red Blood Count 3.29 M/mm3 (4.6-6.2); White Blood Count 12.2 K/mm3 (4.4-11.0)
--- NOTE | 2023-01-08 05:55 | ECHOD_ITS ---
Reason For Study: DYSPNEA Procedure This was a 2D Doppler, Color Flow transthoracic echocardiogram. Exam performed portable in patient room. Left Ventricle Normal LV size. Mild concentric left ventricular hypertrophy. Left ventricular systolic function is lower limits of normal. The estimated ejection fraction is 50 %. Infero-Basal: Akinetic. Mid- Inferior: Hypokinetic. There are regional wall motion abnormalities as specified. Right Ventricle Normal RV size. Normal systolic function. Atria The left atrium is mildly enlarged. Normal right atrium. Mitral Valve Normal mitral valve. Tricuspid Valve Normal tricuspid valve. Mild tricuspid valve insufficiency. Aortic Valve Trisinus/trileaflet aortic valve. Pulmonic Valve Normal pulmonic valve. Great Vessels Normal aortic root. The pulmonary artery is normal size. Normal inferior vena cava. Pericardium/Pleural No pericardial effusion. MMode/2D Measurements & Calculations LVIDd: 5.2 cm IVSd: 1.3 cm LAV(MOD-bp): 85.0 ml LVIDs: 4.5 cm LVPWd: 1.3 cm LAV(MOD-bp) Indexed: 46.0 ml/m2 FS: 14.4 % LAV(MOD-sp2): 113.4 ml LAV(MOD-sp4): 64.4 ml SV(MOD-sp4): 44.9 ml LVAd ap4: 35.7 cm2 LVAd ap2: 36.3 cm2 LVLd ap4: 8.7 cm LVLd ap2: 8.6 cm EDV(MOD-sp4): 118.3 ml EDV(MOD-sp2): 131.2 ml EDV(sp4-el): 123.5 ml EDV(sp2-el): 129.4 ml LVAs ap4: 25.4 cm2 LVAs ap2: 28.2 cm2 LVLs ap4: 7.4 cm LVLs ap2: 8.2 cm ESV(MOD-sp4): 73.5 ml ESV(MOD-sp2): 85.4 ml ESV(sp4-el): 74.6 ml ESV(sp2-el): 82.5 ml EF(MOD-sp4): 37.9 % EF(MOD-sp2): 34.9 % EF(sp4-el): 39.6 % SV(MOD-sp2): 45.8 ml SV(sp4-el): 48.9 ml LA A4 area: 21.9 cm2 LA dimension(2D): 4.9 cm TAPSE: 1.8 cm RA A4 area: 17.4 cm2 Doppler Measurements & Calculations MV E max kumar: 87.0 cm/sec Lat Peak E' Kumar: 7.0 cm/sec Med Peak E' Kumar: 6.6 cm/sec E/E' lat: 12.4 E/E' med: 13.3 MV V2 max: 101.9 cm/sec Ao V2 max: 132.2 cm/sec LV V1 max: 112.1 cm/sec MV max P.2 mmHg Ao max P.0 mmHg LV V1 max P.1 mmHg MV V2 mean: 67.9 cm/sec Ao V2 mean: 97.9 cm/sec LV V1 mean P.9 mmHg MV mean P.0 mmHg Ao mean P.3 mmHg LV V1 mean: 79.8 cm/sec MV V2 VTI: 27.0 cm Ao V2 VTI: 25.1 cm LV V1 VTI: 19.9 cm AV (velocity ratio): 0.79 ECHO/Echo Complete Interpretation Summary Normal LV size. Left ventricular systolic function is lower limits of normal. The estimated ejection fraction is 50 %. Mild concentric left ventricular hypertrophy. There are regional wall motion abnormalities as specified. Ordering Physician: Cesar Henriquez Referring Physician: Dianna Craft M.D. Performed By: Raven Mcintyre RCS
[2023-01-08 06:00] VITALS: BMI 21.7
[2023-01-08 06:04] LABS: Differential Indicated SCAN CRITERIA MET
[2023-01-08 06:31] LABS: Differential Comment SCANNED
[2023-01-08 06:42] LABS: Anion Gap 6 (5-15); BUN 20 mg/dL (7-18); BUN/Creat Ratio 15.9 RATIO (10-20); Calcium,Total 8.4 mg/dL (8.5-10.1); Chloride 100 mmol/L (98-107); Cholesterol 110 mg/dL (200); Creatinine, Serum 1.26 mg/dL (0.70-1.30); EST Glomerular Filtration Rate 61 mL/min (>60); Est Glom Filt Rate - Afr Amer 74 mL/min (>60); Estimated Creatinine Clearance 59.31 ml/min; Glucose 92 mg/dL (74-106); High Density Lipoprotein 38 mg/dL; Potassium 2.8 mmol/L (3.5-5.1); Sodium Level 135 mmol/L (136-145); Triglycerides 80 mg/dL; Troponin-I HS 143 pg/mL (3.0-78.0); Very Low Density Lipoprotein 16 mg/dL (5-40)
[2023-01-08 07:33] VITALS: PULSE 80; O2SAT 98
[2023-01-08 08:13] VITALS: PULSE 80; O2SAT 98
[2023-01-08 08:20] VITALS: BP 128/80; PULSE 54; RESP 19; TEMP 37; O2SAT 95; O2SAT 98
--- NOTE | 2023-01-08 08:43 | PN.HOSP_ITS ---
Subjective Subjective Not requiring any oxygen, though he does not feel well. He is still coughing up mucus Objective Data Objective Data Vital Signs: Vital Signs Temp Pulse Resp BP Pulse Ox O2 Del Method 98.6 F 54 L 19 H 128/80 H 95 Room Air 01/08/23 08:20 01/08/23 08:20 01/08/23 08:20 01/08/23 08:20 01/08/23 08:20 01/08/23 08:20 Oxygen Delivery Method Room Air Weight: 154 lb 1 oz Body Mass Index (BMI) 22.7 Lab / Micro Data 01/08/23 05:38 01/08/23 05:38 Labs: Laboratory Results - last 24 hr 01/07/23 20:13: WBC 17.9 H, RBC 3.51 L, Hgb 12.0 L, Hct 33.8 L, MCV 96.3 H, MCH 34.2 H, MCHC 35.5, RDW Std Deviation 46.8 H, RDW Coeff of Marcos 13.4, Plt Count 230, MPV 9.5, Immature Gran % (Auto) 0.600, Neut % (Auto) 75.3 H, Lymph % (Auto) 13.7 L, [place] % (Auto) 10.1 H, Eos % (Auto) 0.1, Baso % (Auto) 0.2, Absolute Neuts (auto) 13.5 H, Absolute Lymphs (auto) 2.45, Nucleated RBC % 0, Differe ntial Comment SCANNED, Diff Path Review August, Sodium 137, Potassium 3.7, Chloride 103, Carbon Dioxide 28.0, Anion Gap 6, BUN 21 H, Creatinine 1.41 H, Estim Creat Clear Calc 53.00, Est GFR (MDRD) Af Amer 65, Est GFR (MDRD) Non-Af 54 L, BUN/Creatinine Ratio 14.9, Glucose 105, Calcium 8.7, Troponin I High Sens 127 H*, B-Natriuretic Peptide 1010.2 H 01/07/23 23:55: Troponin I High Sens 144 H* 01/08/23 01:45: Troponin I High Sens 150 H* 01/08/23 05:38: WBC 12.2 H, RBC 3.29 L, Hgb 11.2 L, Hct 31.4 L, MCV 95.4 H, MCH 34.0 H, MCHC 35.7, RDW Std Deviation 46.5 H, RDW Coeff of Marcos 13.3, Plt Count 220, MPV 9.4, Immature Gran % (Auto) 0.500, Neut % (Auto) 67.0, Lymph % (Auto) 17.8 L, [place] % (Auto) 14.4 H, Eos % (Auto) 0.1, Baso % (Auto) 0.2, Absolute Neuts (auto) 8.2 H, Absolute Lymphs (auto) 2.18, Nucleated RBC % 0, Differential Comment SCANNED, Diff Path Review August foll, Sodium 135 L, Potassium 2.8 L, Chloride 100, Carbon Dioxide 29.0, Anion Gap 6, BUN 20 H, Creatinine 1.26, Estim Creat Clear Calc 59.31, Est GFR (MDRD) Af Amer 74, Est GFR (MDRD) Non-Af 61, BUN/Creatinine Ratio 15.9, Glucose 92, Calcium 8.4 L, Troponin I High Sens 143 H*, Triglycerides 80, Cholesterol 110, LDL Cholesterol 56, VLDL Cholesterol 16, HDL Cholesterol 38 L Radiography Diagnostic Testing: Radiology Impression Chest X-Ray 01/07/23 20:25 IMPRESSION: Mild interstitial edema or infiltrates. Small pleural effusions. Electronically Signed: Giorgio Tamayo MD at 20:43 EDT , Physical Exam Narrative General: Alert, Oriented x3, Cooperative, No apparent distress HEENT: Atraumatic, PERRLA, EOMI, Normocephalic Oral: Moist Mucosa Neck: Supple, No JVD Lungs: Diminished, Normal air movement, No rhonchi, No wheeze, No rales Cardiovascular: Regular rate, Regular Rhythm, Normal S1, Normal S2, No murmurs Abdomen: Soft, Non Tender, Non-Distended, No Hepato-splenomegaly Extremities: No edema, Capillary Refill Less than 3 Seconds Skin: No rashes, No breakdown Musculoskeletal: No Tenderness to Palpation of Joints or Extremities Neurological: Cranial nerves II-XII grossly intact, Motor Exam 5/5 strength thro ughout, Sensory exam intact to light touch and pain Psych/Mental Status: Flat Assessment & Plan Assessment/Plan (1) Elevated troponin: (2) CHF (congestive heart failure): PLAN: Plan 1. Demand ischemia secondary to possible heart failure versus pneumonia/CAD status post stent/HTN/HLD ? We will obtain an echo, his last echo was on 10/30/2021 with an EF of 60% without being able to evaluate diastolic dysfunction ? Continue with IV Lasix ? Given his cough and his elevated white count on admission is 17 down to 12.2, will start on Levaquin and obtain a sputum culture ? Continue with aspirin, his stents were placed in 2019 and will monitor his blood pressures and make adjustments as necessary, he did have an elevated blood pressure on admission that resolved very quickly with the addition of blood pressure medications ? Continue with Lipitor 2. Hypokalemia ? This is reduced and related to 0.8, will obtain a mag and Phos and replete as necessary DVT: Lovenox Charges/Coding Visit Charges Inpatient E&M: 78409 Subs Hosp L2
[2023-01-08 09:20] LABS: Magnesium 2.2 mg/dL (1.6-2.6); Phosphorus 4.3 mg/dL (2.5-4.9)
[2023-01-08 11:20] VITALS: BP 148/83; PULSE 69; RESP 18; TEMP 37; O2SAT 97
[2023-01-08] MEDS: Enoxaparin 40 MG/0.4 ML Syringe SC (11:22)
[2023-01-08] MEDS: levoFLOXacin IV 750 MG/150 ML BAG 100 MG IV (11:22)
[2023-01-08] MEDS: 0.9% Saline Lock 10 ML Syringe IV ×2 (11:22→17:16)
[2023-01-08] MEDS: Furosemide 40 MG/4 ML Vial IV ×2 (11:22→17:16)
[2023-01-08] MEDS: Potassium Chloride Oral Tablet 20 MEQ 60 MEQ PO (12:08)
--- NOTE | 2023-01-08 13:35 | CASEMGMT ---
SHWETA GALINDO Face to Face with patient for initial transition planning/care coordination assessment. RN CM introduced self and role at [facility]. Patient lying in bed, alert and oriented, friend at bedside. Patient willing to participate in assessment and is able to answer all questions appropriately. Care providers, pharmacy, and demographics verified. Patient wishes to discharge home, denies need for home health at this time. Patient states he has no further needs or concerns at this time. CM to follow for discharge planning needs that may arise. PCP: Venancio Specialists: Kareem, microwave oven assembler Edis Preferred Pharmacy: [facility] Insurance: none, notified Prescription Benefit: none Living Will/HPOA: none LNOK: brother Living Arrangements: Patient states he lives with brother in a single story home, with 1 or 13 steps to enter the home. Patient states he is independent at home. Transportation: self, brother DME/HHC: Patient has grab bars in his bathroom. No previous HHC or SNF. Patient 1/2 PPD of cigarettes daily. Patient states he drink 1 liter of liquor weekly. Patient declined resources. Disposition Plan: Patient to discharge home with family support and follow-up plans in place. Rosie ZHENG, RN, CM
[2023-01-08 17:10] VITALS: BP 123/72; PULSE 71; RESP 16; TEMP 37; O2SAT 97
[2023-01-08] MEDS: MELATONIN 3 MG TABLET PO (19:53)
--- NOTE | 2023-01-08 21:00 | EKG12_ITS ---
Test Reason : RHYTHM CHG Blood Pressure : / mmHG Vent. Rate : 110 BPM Atrial Rate : 000 BPM P-R Int : 000 ms QRS Dur : 092 ms QT Int : 370 ms P-R-T Axes : 000 050 085 degrees QTc Int : 500 ms Atrial fibrillation with rapid ventricular response Moderate voltage criteria for LVH, may be normal variant ( Sokolow-Carlson , [place] product ) Nonspecific T wave abnormality Abnormal ECG When compared with ECG of 07-JAN-2023 20:07, Atrial fibrillation has replaced Sinus rhythm Confirmed by ARAMIS OSBORNE, FOREIGN ([id number]), assistant production editor TIFF LUNA ([id number]) on 02/04/2023 1:48:33 PM Referred By: DR CALLAWAY Confirmed By:FOREIGN SELF MD
[2023-01-08 21:07] VITALS: BP 122/85; PULSE 98; RESP 16; TEMP 36.7; O2SAT 94
[2023-01-09] VITALS (8 sets, daily range): BP systolic 110–144; BP diastolic 75–91; PULSE 84–105; RESP 16–18; TEMP 36.1–37; O2SAT 92–98; BMI 20.9
[2023-01-09 06:07] LABS: Absolute Lymphocyte Count 1.63 X10^3/uL (0.83-4.51); Absolute Neutrophil Count 7.8 X10^3/uL (2.0-7.7); Basophil# 0.02 X10^3/uL; Basophil% 0.2 % (0-1); Eosinophil# 0.03 X10^3/uL; Eosinophils% 0.3 % (0-5); Hematocrit 36.8 % (40-54); Hemoglobin 12.8 g/dL (13.0-16.5); Lymphocyte # 1.63 X10^3/ul (0.83-4.51); Lymphocyte % 15.3 % (19-41); Mean Corp Hgb Conc 34.8 g/dL (32-36); Mean Corpuscular Hgb 33.1 pg (27.0-32.0); Mean Corpuscular Volume 95.1 fL (80-94); Monocyte# 1.18 X10^3/uL; Monocyte% 11.1 % (0-10); NRBC Flagged by Analyzer 0 % (0-5); Neutrophil # 7.76 X10^3/uL (2.7-7.7); Neutrophil % 72.6 % (47-70); Platelet Count 258 K/mm3 (150-450); RBC Distribution Width CV 13.2 % (11.6-14.6); RBC Distribution Width SD 45.3 fl (35.1-43.9); Red Blood Count 3.87 M/mm3 (4.6-6.2); White Blood Count 10.7 K/mm3 (4.4-11.0)
[2023-01-09 06:42] LABS: Anion Gap 5 (5-15); BUN 18 mg/dL (7-18); BUN/Creat Ratio 14.6 RATIO (10-20); Calcium,Total 8.9 mg/dL (8.5-10.1); Chloride 100 mmol/L (98-107); Creatinine, Serum 1.23 mg/dL (0.70-1.30); EST Glomerular Filtration Rate 63 mL/min (>60); Est Glom Filt Rate - Afr Amer 76 mL/min (>60); Estimated Creatinine Clearance 56.08 ml/min; Glucose 105 mg/dL (74-106); Potassium 2.9 mmol/L (3.5-5.1); Sodium Level 134 mmol/L (136-145)
--- NOTE | 2023-01-09 07:47 | EKG12_ITS ---
Test Reason : AFIB Blood Pressure : / mmHG Vent. Rate : 093 BPM Atrial Rate : 000 BPM P-R Int : 000 ms QRS Dur : 092 ms QT Int : 382 ms P-R-T Axes : 000 063 082 degrees QTc Int : 474 ms Atrial fibrillation Moderate voltage criteria for LVH, may be normal variant ( Sokolow-Carlson , [place] product ) Cannot rule out Inferior infarct , age undetermined Abnormal ECG When compared with ECG of 08-JAN-2023 20:26, MANUAL COMPARISON REQUIRED, DATA IS UNCONFIRMED Confirmed by ARAMIS OSBORNE, FOREIGN ([id number]), international editorial producer TIFF LUNA ([id number]) on 02/11/2023 1:29:35 PM Referred By: Confirmed By:FOREIGN SELF MD
[2023-01-09] MEDS: 0.9% Saline Lock 10 ML Syringe IV ×2 (08:32→10:10)
[2023-01-09] MEDS: dilTIAZem 25 MG/5 ML Vial 20 MG IV BOLUS (08:32)
[2023-01-09 09:01] LABS: Thyroid Stim Hormone (TSH) 1.57 uIU/mL (0.358-3.74)
[2023-01-09] MEDS: levoFLOXacin IV 750 MG/150 ML BAG 100 MG IV (10:03)
[2023-01-09] MEDS: Enoxaparin 40 MG/0.4 ML Syringe SC (10:10)
[2023-01-09] MEDS: amLODIPine 5 MG Tablet PO (10:10)
[2023-01-09] MEDS: Furosemide 40 MG/4 ML Vial IV ×2 (10:10→16:32)
--- NOTE | 2023-01-09 10:38 | PCM.PN.HOSP ---
Subjective Subjective Went into A-fib with RVR overnight, EKG appears to have irregular beats with possible flutter versus A-fib. Denies any chest pain or shortness of breath Objective Data Objective Data Vital Signs: Vital Signs Temp Pulse Resp BP Pulse Ox O2 Del Method 97 F L 84 18 135/75 H 94 Room Air 01/09/23 10:01/09/23 10:01/09/23 10:01/09/23 10:09 01/09/23 10:01/09/23 10:09 Oxygen Delivery Method Room Air Weight: 142 lb 3.17 oz Body Mass Index (BMI) 20.9 Intake & Output: Intake and Output for Last 24 Hours 01/08/23 01/09/23 01/10/23 03:59 03:59 03:59 Intake Total 930 / 930 Balance 930 / 930 Lab / Micro Data 01/09/23 05:45 01/09/23 05:45 Labs: Laboratory Results - last 24 hr 01/09/23 05:45: WBC 10.7, RBC 3.87 L, Hgb 12.8 L, Hct 36.8 L, MCV 95.1 H, MCH 33.1 H, MCHC 34.8, RDW Std Deviation 45.3 H, RDW Coeff of Marcos 13.2, Plt Count 258, MPV 10.0, Immature Gran % (Auto) 0.500, Neut % (Auto) 72.6 H, Lymph % (Auto) 15.3 L, [place] % (Auto) 11.1 H, Eos % (Auto) 0.3, Baso % (Auto) 0.2, Absolute Neuts (auto) 7.8 H, Absolute Lymphs (auto) 1.63, Nucleated RBC % 0, Sodium 134 L, Potassium 2.9 L, Chloride 100, Carbon Dioxide 29.0, Anion Gap 5, BUN 18, Creatinine 1.23, Estim Creat Clear Calc 56.08, Est GFR (MDRD) Af Amer 76, Est GFR (MDRD) Non-Af 63, BUN/Creatinine Ratio 14.6, Glucose 105, Calcium 8.9, TSH 1.57 Radiography Diagnostic Testing: Radiology Impression Echocardiogram 01/08/23 05:55 Interpretation Summary Normal LV size. Left ventricular systolic function is lower limits of normal. The estimated ejection fraction is 50 %. Mild concentric left ventricular hypertrophy. There are regional wall motion abnormalities as specified. Ordering Physician: Cesar Henriquez Referring Physician: Dianna Craft M.D. Performed By: Raven Mcintyre RCS Physical Exam Narrative General: Alert, Oriented x3, Cooperative, No apparent distress HEENT: Atraumatic, PERRLA, EOMI, Normocephalic Oral: Moist Mucosa Neck: Supple, No JVD Lungs: Diminished, Normal air movement, No rhonchi, No wheeze, No rales Cardiovascular: Irregular rate and rhythm, Normal S1, Normal S2, No murmurs Abdomen: Soft, Non Tender, Non-Distended, No Hepato-splenomegaly Extremities: No edema, Capillary Refill Less than 3 Seconds Skin: No rashes, No breakdown Musculoskeletal: No Tenderness to Palpation of Joints or Extremities Neurological: Cranial nerves II-XII grossly intact, Motor Exam 5/5 strength throughout, Sensory exam intact to light touch and pain Psych/Mental Status: Flat Assessment & Plan Assessment/Plan (1) Elevated troponin: (2) CHF (congestive heart failure): QUALIFIERS: Heart failure type: diastolic Heart failure chronicity: acute on chronic Qualified Code(s): I50.33 - Acute on chronic diastolic (congestive) heart failure (3) Hypertensive urgency: PLAN: Plan 1. Demand ischemia secondary to possible heart failure versus pneumonia versus A-fib/CAD status post stent/HTN/HLD ? Repeat echo with no wall motion abnormality and a normal EF however this wall motion abnormality was seen in 2019 ? Continue with IV Lasix ? She did go into A-fib/flutter overnight with a rapid ventricular rate, he does state that he has had palpitations in the past but has not been evaluated ? Will give him a dose of Cardizem IV and then if this controls his heart rate we will transition him to p.o. metoprolol and start him on Eliquis ? Given his cough and his elevated white count on admission is 17 down to 12.2, will start on Levaquin and obtain a sputum culture ? Continue with aspirin, his stents were placed in 2019 and will monitor his blood pressures and make adjustments as necessary, he did have an elevated blood pressure on admission that resolved very quickly with the addition of blood pressure medications ? Continue with Lipitor 2. Hypokalemia ? We will monitor and replace ? Mag and Phos are normal DVT: Lovenox Charges/Coding Visit Charges Inpatient E&M: 79024 Subs Hosp L2
--- NOTE | 2023-01-09 11:02 | CASEMGMT ---
Patient is self pay and was interested in disability. SW met with patient. Introduced self and role at [facility]. SW provided patient with Medicaid application, information on applying for disability, Shari Curiel, and list of prescription assistance programs. Lilia HERRMANN
[2023-01-09] MEDS: Potassium Chloride Oral Tablet 20 MEQ 60 MEQ PO (13:05)
[2023-01-09] MEDS: MELATONIN 3 MG TABLET PO (22:07)
[2023-01-09] MEDS: Metoprolol Tartrate 25 MG Tablet PO (22:08)
[2023-01-09] MEDS: APIXABAN 5 MG TABLET PO (22:09)
[2023-01-09 23:53] LABS: Bedside Glucose 148 mg/dL (74-106)
[2023-01-10] VITALS (7 sets, daily range): BP systolic 79–154; BP diastolic 51–97; PULSE 66–91; RESP 16–18; TEMP 36.8–36.9; O2SAT 94–99; BMI 19.9
--- NOTE | 2023-01-10 | PCM.PN.BLA ---
Progress Note Notified by nurse without outpatient was orthostatic positive. Order to change activity level to up with assistance; and compression stockings to thigh. We will stop Lasix IV at this time. Rounding MD to evaluate further in a.m.
[2023-01-10 08:01] LABS: Absolute Lymphocyte Count 1.64 X10^3/uL (0.83-4.51); Absolute Neutrophil Count 8.4 X10^3/uL (2.0-7.7); Basophil# 0.02 X10^3/uL; Basophil% 0.2 % (0-1); Eosinophil# 0.03 X10^3/uL; Eosinophils% 0.3 % (0-5); Hematocrit 38.6 % (40-54); Hemoglobin 13.8 g/dL (13.0-16.5); Lymphocyte # 1.64 X10^3/ul (0.83-4.51); Lymphocyte % 14.6 % (19-41); Mean Corp Hgb Conc 35.8 g/dL (32-36); Mean Corpuscular Volume 92.3 fL (80-94); Mean Platelet Vol. 9.8 fl (6.2-12.0); Monocyte# 1.03 X10^3/uL; Monocyte% 9.2 % (0-10); NRBC Flagged by Analyzer 0 % (0-5); Neutrophil # 8.44 X10^3/uL (2.7-7.7); Neutrophil % 75.3 % (47-70); Platelet Count 285 K/mm3 (150-450); RBC Distribution Width CV 12.9 % (11.6-14.6); RBC Distribution Width SD 43.5 fl (35.1-43.9); Red Blood Count 4.18 M/mm3 (4.6-6.2); White Blood Count 11.2 K/mm3 (4.4-11.0)
[2023-01-10 08:16] LABS: Anion Gap 9 (5-15); BUN 26 mg/dL (7-18); BUN/Creat Ratio 20.3 RATIO (10-20); Calcium,Total 9.6 mg/dL (8.5-10.1); Chloride 98 mmol/L (98-107); Creatinine, Serum 1.28 mg/dL (0.70-1.30); EST Glomerular Filtration Rate 60 mL/min (>60); Est Glom Filt Rate - Afr Amer 73 mL/min (>60); Estimated Creatinine Clearance 51.22 ml/min; Glucose 97 mg/dL (74-106); Potassium 3.2 mmol/L (3.5-5.1); Sodium Level 134 mmol/L (136-145)
[2023-01-10] MEDS: Potassium Chloride Oral Tablet 20 MEQ 60 MEQ PO (09:56)
[2023-01-10] MEDS: Metoprolol Tartrate 25 MG Tablet PO (09:56)
[2023-01-10] MEDS: APIXABAN 5 MG TABLET PO (09:56)
[2023-01-10] MEDS: 0.9% Saline Lock 10 ML Syringe IV (09:57)
[2023-01-10] MEDS: levoFLOXacin IV 750 MG/150 ML BAG 100 MG IV (10:01)
--- NOTE | 2023-01-10 12:43 | DCINST_ITS ---
Discharge Instructions Diet Discharge Diet: Low fat / Low cholesterol Activity Discharge Activity: Return to Normal Activity Dressing / Incision Call your doctor if you observe: Fever of 101 or Higher, Shortness of breath, Dizziness, Fainting spells, Swelling in the ankles, Chest pain and Increased palpitations (irregular heartbeat) Follow Up Care Test Results: Test results from this visit will be discussed in further detail at your follow- up appointment, if applicable. Discharge Plan Admission Admit Date/Time: 01/07/23 21:58 Attending Provider: Roosevelt Kruse Primary Care Provider: Dianna Craft Consulting Providers: Cesar Henriquez Discharge Orders/Prescriptions Prescriptions: New Eliquis 5 mg Tablet 5 mg PO BID 30 Days Qty: 60 0RF metoprolol tartrate 25 mg Tablet 12.5 mg PO BID 30 Days Qty: 30 0RF levofloxacin 750 mg tablet 750 mg PO DAILY Qty: 4 0RF Continued aspirin 81 mg Tablet,Delayed Release (Dr/Ec) 81 mg PO DAILY@0800 atorvastatin 80 mg tablet 80 mg PO QHS Qty: 90 3RF Referrals / Follow Up: Dianna Craft MD [Primary Care Provider] - Within 1 Week Disposition Disposition (needs filled in before D/C Order can be placed): Home, Self Care
--- NOTE | 2023-01-10 16:36 | PCM.DC.SUM ---
Providers Date of Admission: 01/07/23 Primary Care Physician: Dr. Dianna Craft MD Reason For Visit: ACUTE HEART FAILURE Diagnosis Discharge Diagnosis (1) Elevated troponin: Status: Acute Code(s): R77.8 - Other specified abnormalities of plasma proteins (2) CHF (congestive heart failure): Status: Acute Code(s): I50.9 - Heart failure, unspecified Qualifiers: Heart failure type: diastolic Heart failure chronicity: acute on chronic Qualified Code(s): I50.33 - Acute on chronic diastolic (congestive) heart failure (3) Hypertensive urgency: Status: Acute Code(s): I16.0 - Hypertensive urgency Medications at Discharge Home Medications aspirin 81 mg tablet,delayed release 81 mg PO DAILY@0800 HEALTH MAINTENANCE 10/30/21 atorvastatin 80 mg tablet 80 mg PO QHS hyperlipidemia #90 tabs 12/02/21 apixaban 5 mg tablet (Eliquis) 5 mg PO BID 30 days #60 tabs 01/10/23 levofloxacin 750 mg tablet 750 mg PO DAILY #4 tabs 01/10/23 metoprolol tartrate 25 mg tablet 12.5 mg (1/2 x 25 mg) PO BID 30 days #30 tabs 01/10/23 Hospital Course Operations None Procedures 2-D Echocardiogram Summary of Care Provided Minutes Spent on Discharge: 37 Hospital Course: Per HPI: LORRI COUGHLIN, is a 62 M with a significant history of CAD status post stent; and AAA who presents to the emergency department with 3-week history of progressively worsening shortness of breath. Associated with his symptoms is a productive cough. Patient is still on antibiotics and steroids obtained from a visit to the urgent care. Hospital Course: 1. Demand ischemia secondary to possible heart failure versus pneumonia versus A-fib/CAD status post stent/HTN/HLD?62-year-old male presents to the hospital with increasing shortness of breath. He says that he has noticed intermittent palpitations and on admission it was thought that he might be due to CHF. He was started on IV Lasix and an echo was obtained which showed normal EF but an abnormal wall wall motion that was consistent with what was seen back in 2019. During his admission he did develop A-fib with RVR and given his history of feeling intermittent palpitations it is likely that he has paroxysmal A-fib. He was given a dose of IV Cardizem which did control his heart rate and then he was transitioned to p.o. metoprolol 25 mg twice daily. The night that the metoprolol was started however he developed significant orthostatic hypotension which resolved. He had a similar episode though not as extreme, the morning of discharge therefore I elected to decrease his metoprolol doses from 25 mg p.o. twice daily down to 12-1/2 mg p.o. twice daily. His rhythm had returned to normal sinus at that time but given his wall motion abnormality and his history of cardiac stents he was placed on Eliquis. I do recommend that he follow-up with cardiology in 2 to 4 weeks and his PCP in 3 to 5 days. I discussed with him the plan for discharge today and I discussed that we could potentially watch him another day to make sure that he does not have any more orthostatic hypotensive episodes however he elected to go home today. He expressed understanding of the risk benefits of discharge. I do recommend that he obtain outpatient lab work by his PCP to monitor his creatinine as well as his potassium as this was low on admission on the day of discharge she was 3.2 and did receive 60 mEq of p.o. potassium. Because of the concern for pneumonia and white count that was slightly elevated he was discharged on 4 more days of Levaquin as well. Physical Exam Narrative General: Alert, Oriented x3, Cooperative, No apparent distress HEENT: Atraumatic, PERRLA, EOMI, Normocephalic Oral: Moist Mucosa Neck: Supple, No JVD Lungs: Diminished, Normal air movement, No rhonchi, No wheeze, No rales Cardiovascular: Regular rate and rhythm, Normal S1, Normal S2, No murmurs Abdomen: Soft, Non Tender, Non-Distended, No Hepato-splenomegaly Extremities: No edema, Capillary Refill Less than 3 Seconds Skin: No rashes, No breakdown Musculoskeletal: No Tenderness to Palpation of Joints or Extremities Neurological: Cranial nerves II-XII grossly intact, Motor Exam 5/5 strength throughout, Sensory exam intact to light touch and pain Psych/Mental Status: Flat Weight / BMI Weight Weight: 135 lb 2.294 oz Body Mass Index (BMI) 19.9 ABG / Lab / Microbiology Data 01/10/23 07:42 01/10/23 07:42 Laboratory: Laboratory Results - last 24 hr 01/09/23 23:36: POC Glucose 148 H 01/10/23 07:42: WBC 11.2 H, RBC 4.18 L, Hgb 13.8, Hct 38.6 L, MCV 92.3, MCH 33.0 H, MCHC 35.8, RDW Std Deviation 43.5, RDW Coeff of Marcos 12.9, Plt Count 285, MPV 9.8, Immature Gran % (Auto) 0.400, Neut % (Auto) 75.3 H, Lymph % (Auto) 14.6 L, [place] % (Auto) 9.2, Eos % (Auto) 0.3, Baso % (Auto) 0.2, Absolute Neuts (auto) 8.4 H, Absolute Lymphs (auto) 1.64, Nucleated RBC % 0, Sodium 134 L, Potassium 3.2 L, Chloride 98, Carbon Dioxide 27.0, Anion Gap 9, BUN 26 H, Creatinine 1.28, Estim Creat Clear Calc 51.22, Est GFR (MDRD) Af Amer 73, Est GFR (MDRD) Non-Af 60, BUN/Creatinine Ratio 20.3 H, Glucose 97, Calcium 9.6 D/C Instructions Discharge Diet: Low fat / Low cholesterol Call your doctor if you observe: Fever of 101 or Higher, Shortness of breath, Dizziness, Fainting spells, Swelling in the ankles, Chest pain and Increased palpitations (irregular heartbeat) Meaningful Use Info Meaningful Use Diagnoses (Choose all that apply): None applicable Discharge Plan Admission Admit Date/Time: 01/07/23 21:58 Attending Provider: Roosevelt Kruse Primary Care Provider: Dianna Craft Consulting Providers: Cesar Henriquez Discharge Orders/Prescriptions Prescriptions: New Eliquis 5 mg Tablet 5 mg PO BID 30 Days Qty: 60 0RF metoprolol tartrate 25 mg Tablet 12.5 mg PO BID 30 Days Qty: 30 0RF levofloxacin 750 mg tablet 750 mg PO DAILY Qty: 4 0RF Continued aspirin 81 mg Tablet,Delayed Release (Dr/Ec) 81 mg PO DAILY@0800 atorvastatin 80 mg tablet 80 mg PO QHS Qty: 90 3RF Referrals / Follow Up: Dianna Craft MD [Primary Care Provider] - Within 1 Week Disposition Disposition (needs filled in before D/C Order can be placed): Home, Self Care Charges/Coding Visit Charges Inpatient E&M: 12272 Disch Hosp >30min
[2023-01-12 09:38] LABS: Pathologist Review Reviewed
[2023-01-12 09:40] LABS: Pathologist Review Reviewed
== END 2023-01-10 15:14 | disposition home or self-care (01) | DRG 291 ==
LOC: ED 21:48 → PCU 23:07
PROVIDERS: Admitting Provider Hospitalist; Emergency Provider Emergency Medicine; PCP Internal Medicine; Visit Provider Family Medicine
DX: I13.0 Hypertensive heart and chronic kidney disease with heart failure and stage 1 through stage 4 chronic kidney disease, or unspecified chronic kidney disease (principal); I50.33 Acute on chronic diastolic (congestive) heart failure; N17.9 Acute kidney failure, unspecified; I24.8 Other forms of acute ischemic heart disease; I48.91 Unspecified atrial fibrillation; I16.0 Hypertensive urgency; I25.10 Atherosclerotic heart disease of native coronary artery without angina pectoris; E87.6 Hypokalemia; I95.1 Orthostatic hypotension; E78.5 Hyperlipidemia, unspecified; I25.2 Old myocardial infarction; Z95.5 Presence of coronary angioplasty implant and graft; Z79.82 Long term (current) use of aspirin; Z87.891 Personal history of nicotine dependence; R77.8 Other specified abnormalities of plasma proteins
CPT/HCPCS: 36415; 71045; 80048; 80061; 82962; 83735; 83880; 84100; 84443; 84484; 85025; 93005; 93306; 94640; 99285; 99406; A4216; J1940

== ENCOUNTER → 2023-01-21 | Outpatient (CLI) | payer SELFPAY ==
--- NOTE | 2023-01-21 11:50 | RAD_ITS ---
STUDY: X-RAY CHEST REASON FOR EXAM: Male, 63 years old. Follow-up of pneumonia. TECHNIQUE: Frontal and lateral views of the chest. COMPARISON: January 07, 2023. FINDINGS: Hyperinflation with decreased opacities in both lower lobes posteriorly. Follow-up chest imaging to complete resolution recommended. There is no demonstrated pleural abnormality. Stable cardiomegaly with aortic tortuosity. Normal mediastinum and jenifer. Normal visualized pulmonary arteries. Normal visualized thoracic spine. Normal visualized ribs, clavicles, and shoulders. No abnormality of the visualized soft tissue structures of the upper abdomen. RAD/Chest PA and Lateral IMPRESSION: Cardiomegaly, hyperinflation and decreased patchy opacities at both bases posteriorly. Continued follow-up chest imaging to complete resolution recommended. Electronically Signed: Toby Andrea MD at 12:18 EDT ,
== END | disposition home or self-care (01) ==
LOC: RAD 11:45
PROVIDERS: PCP Internal Medicine; Referring Provider Internal Medicine; Visit Provider Internal Medicine
DX: I25.10 Atherosclerotic heart disease of native coronary artery without angina pectoris (principal); I50.9 Heart failure, unspecified; I16.0 Hypertensive urgency; E78.5 Hyperlipidemia, unspecified; I25.2 Old myocardial infarction; F17.200 Nicotine dependence, unspecified, uncomplicated
CPT/HCPCS: 71046

== ENCOUNTER → 2023-01-23 | Outpatient (CLI) | payer SELFPAY ==
[2023-01-23 12:18] LABS: Absolute Neutrophil Count 6.7 X10^3/uL (2.0-7.7); Basophil# 0.04 X10^3/uL; Basophil% 0.5 % (0-1); Eosinophil# 0.07 X10^3/uL; Eosinophils% 0.8 % (0-5); Hematocrit 33.1 % (40-54); Hemoglobin 10.7 g/dL (13.0-16.5); Lymphocyte % 13.7 % (19-41); Mean Corp Hgb Conc 32.3 g/dL (32-36); Mean Corpuscular Hgb 32.6 pg (27.0-32.0); Mean Corpuscular Volume 100.9 fL (80-94); Mean Platelet Vol. 9.8 fl (6.2-12.0); Monocyte# 0.67 X10^3/uL; Monocyte% 7.7 % (0-10); NRBC Flagged by Analyzer 0 % (0-5); Neutrophil % 76.7 % (47-70); Platelet Count 295 K/mm3 (150-450); RBC Distribution Width CV 13.3 % (11.6-14.6); RBC Distribution Width SD 49.6 fl (35.1-43.9); Red Blood Count 3.28 M/mm3 (4.6-6.2); White Blood Count 8.7 K/mm3 (4.4-11.0)
[2023-01-23 12:53] LABS: AST(SGOT) 30 U/L (15-37); Alanine Aminotransfer ALT/SGPT 75 U/L (16-61); Albumin, Serum 3.2 g/dL (3.2-5.0); Alkaline Phosphatase 76 U/L (45-117); Anion Gap 3 (5-15); BUN 22 mg/dL (7-18); BUN/Creat Ratio 17.9 RATIO (10-20); Calcium,Total 8.2 mg/dL (8.5-10.1); Chloride 104 mmol/L (98-107); Creatinine, Serum 1.23 mg/dL (0.70-1.30); EST Glomerular Filtration Rate 63 mL/min (>60); Est Glom Filt Rate - Afr Amer 76 mL/min (>60); Globulin 3.2 g/dL (2.2-4.2); Glucose 86 mg/dL (74-106); Magnesium 2.6 mg/dL (1.6-2.6); Potassium 3.1 mmol/L (3.5-5.1); Protein, Total 6.4 g/dL (6.4-8.2); Sodium Level 139 mmol/L (136-145)
== END | disposition home or self-care (01) ==
PROVIDERS: PCP Internal Medicine; Referring Provider Nurse Practitioner Gerontology; Visit Provider Nurse Practitioner Gerontology
DX: I16.0 Hypertensive urgency (principal); I50.9 Heart failure, unspecified; I71.40 Abdominal aortic aneurysm, without rupture, unspecified; I25.2 Old myocardial infarction; Z95.5 Presence of coronary angioplasty implant and graft; F17.200 Nicotine dependence, unspecified, uncomplicated
CPT/HCPCS: 36415; 80053; 83735; 85025

== ENCOUNTER 2023-02-16 07:03 | Day surgery (SDC) | payer SELFPAY ==
[2023-02-12 07:48] VITALS: BMI 23.0
--- NOTE | 2023-02-16 09:00 | CL.D_ITS ---
Patient Name: LORRI COUGHLIN Study Date: 02/16/2023 Performing: Eulalio Gutierrez MD Ht: 69 inches 175.26 cm : 1960 Wt: 156 lbs 70.76 kg Age: 63 Gender: male BSA: 1.86 PROCEDURE(S) PERFORMED [id number])[facility] CLINICAL PROFILE AND INDICATIONS Indications: Cardiomyopathy Heart Failure: None Stress/Imaging Stress/Image Study Performed: No CAD Presentations: Non-STEMI. Symptom onset Date/Time: 01/14/23 Time Not Available CONCLUSIONS Left main coronary artery disease with severe proximal LAD stenosis and previously stented right coronary artery which is patent and mild left ventricular systolic dysfunction. RECOMMENDATIONS Surgery consult for coronary revascularization DESCRIPTION OF PROCEDURE The patient arrived to the procedure lab. The risks and benefits of the procedure as well as a full description of our services here and current unavailability of surgical backup were fully explained to the patient and/or their significant other prior to the catheterization. The Timeout was completed, verifying the correct patient and procedure. The patient's procedural site was prepped and draped in the usual fashion. Local anesthetic was given subcutaneously to right radial region with Lidocaine 2%. Using a modified Seldinger technique, arterial access was obtained via the right radial artery, a 6Fr sheath was inserted. Left Coronary Artery selective angiography was performed in multiple views using a 5 Fr. 4.0 [place] catheter. Right Coronary Artery selective angiography was then performed in multiple views using a 5 Fr. 4.0 [place] catheter. Left Ventriculography was performed in RUIZ projection using a 5 Fr. Pigtail catheter. LV to AO pullback pressures were then recorded.The arterial sheath was pulled and a TR Band was applied for hemostasis CORONARY ANGIOGRAPHY DOMINANCE: Right Dominant LEFT HEART ASSESSMENT Left Ventricular Ejection Fraction: by LV Gram 45 % Inferior Basal Akinesis. Inferior Mid Hypokinesis - Severe. Anterior Hypokinesis - Mild Depressed Left Ventricular systolic function LEFT MAIN: 50 to 60% stenosis with dampening of pressure and mild calcification. LEFT ANTERIOR DESCENDING ARTERY: Medium size vessel with mild calcification and proximal high-grade 80% stenosis involving the takeoff of a first diagonal vessel which is large. CIRCUMFLEX ARTERY: Mild proximal calcification and eccentric first obtuse marginal branch with 70% stenosis present. RIGHT CORONARY ARTERY: Dominant vessel previously stented with 40% in-stent stenosis in the proximal stent COMPLICATIONS No Complications PROCEDURE MEDICATIONS Fentanyl 50 mcg IV Versed 1 mg IV Versed 1 mg IV Versed 1 mg IV Oxygen: 2 L/min via nasal cannula Heparin given IA 02/16/2023 08:31:32 Verapamil 2.5mg, Ntg 100mcgs, 3000 units of Heparin given IA 02/16/2023 08:31:32 SUMMARY OF HEMODYNAMIC DATA Time AIR REST ECG 07:19:58 ECG 08:12:30 AO 158/84 (117) SA 08:35:01 LV 139/8, 23 08:44:00 LV 139/10, 24 08:44:09 LVp 122/8, 23 08:44:47 LV 122/7, 29 08:44:51 AOp 121/-8 (50) 08:44:54 Signed By Eulalio Gutierrez MD On 02/16/2023 08:59:15 Eulalio Gutierrez MD
[2023-02-16 09:37] LABS: Potassium 3.1 mmol/L (3.5-5.1)
== END 2023-02-16 12:15 | disposition home or self-care (01) ==
LOC: CLSP 07:05
PROVIDERS: PCP Internal Medicine; Referring Provider Internal Medicine Cardiovascular Disease; Visit Provider Internal Medicine Cardiovascular Disease
DX: I42.9 Cardiomyopathy, unspecified (principal); I50.9 Heart failure, unspecified; I48.91 Unspecified atrial fibrillation; I25.10 Atherosclerotic heart disease of native coronary artery without angina pectoris; Z95.5 Presence of coronary angioplasty implant and graft; F17.210 Nicotine dependence, cigarettes, uncomplicated; I25.2 Old myocardial infarction; Z79.82 Long term (current) use of aspirin; R53.83 Other fatigue; R77.8 Other specified abnormalities of plasma proteins; R93.1 Abnormal findings on diagnostic imaging of heart and coronary circulation
CPT/HCPCS: 84132; 93458; 99152; 99153; Q9967; C1769; C1894

== ENCOUNTER → 2023-04-30 | Outpatient (CLI) | payer SELFPAY ==
[2023-04-30 11:13] LABS: Absolute Lymphocyte Count 1.65 X10^3/uL (0.83-4.51); Absolute Neutrophil Count 4.7 X10^3/uL (2.0-7.7); Basophil# 0.05 X10^3/uL; Basophil% 0.7 % (0-1); Eosinophil# 0.33 X10^3/uL; Eosinophils% 4.4 % (0-5); Hemoglobin 12.6 g/dL (13.0-16.5); Lymphocyte # 1.65 X10^3/ul (0.83-4.51); Lymphocyte % 21.9 % (19-41); Mean Corp Hgb Conc 33.2 g/dL (32-36); Mean Corpuscular Hgb 30.7 pg (27.0-32.0); Mean Corpuscular Volume 92.7 fL (80-94); Mean Platelet Vol. 9.2 fl (6.2-12.0); Monocyte# 0.83 X10^3/uL; NRBC Flagged by Analyzer 0 % (0-5); Neutrophil # 4.65 X10^3/uL (2.7-7.7); Neutrophil % 61.7 % (47-70); Platelet Count 241 K/mm3 (150-450); RBC Distribution Width CV 13.3 % (11.6-14.6); RBC Distribution Width SD 45.1 fl (35.1-43.9); White Blood Count 7.5 K/mm3 (4.4-11.0)
[2023-04-30 12:04] LABS: Anion Gap 5 (5-15); BUN 16 mg/dL (7-18); BUN/Creat Ratio 12.9 RATIO (10-20); Chloride 107 mmol/L (98-107); Creatinine, Serum 1.24 mg/dL (0.70-1.30); EST Glomerular Filtration Rate 62 mL/min (>60); Est Glom Filt Rate - Afr Amer 75 mL/min (>60); Glucose 109 mg/dL (74-106); Potassium 3.9 mmol/L (3.5-5.1); Sodium Level 140 mmol/L (136-145); Thyroid Stim Hormone (TSH) 3.84 uIU/mL (0.358-3.74)
== END | disposition home or self-care (01) ==
LOC: LAB 10:49
PROVIDERS: PCP Internal Medicine; Referring Provider Nurse Practitioner Gerontology; Visit Provider Nurse Practitioner Gerontology
DX: E87.6 Hypokalemia (principal); I48.91 Unspecified atrial fibrillation; R53.83 Other fatigue; R77.8 Other specified abnormalities of plasma proteins; Z95.5 Presence of coronary angioplasty implant and graft; R93.1 Abnormal findings on diagnostic imaging of heart and coronary circulation
CPT/HCPCS: 36415; 80048; 84443; 85025

== ENCOUNTER 2024-10-03 13:55 | Emergency (ER) | payer MEDICARE, SELFPAY ==
[2024-10-03] VITALS (8 sets, daily range): BP systolic 130–181; BP diastolic 73–113; PULSE 70–89; RESP 17–25; TEMP 36.3–36.4; O2SAT 96–100; BMI 22.8
--- NOTE | 2024-10-03 14:04 | ED.RN ---
pt. intially denies pain but then becomes restless in bed and says everything hurts, when asked if he could point to pain pt. states it is hard to explain
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
[2024-10-03] MEDS: Ondansetron 4 MG/2 ML Vial IV (14:34)
[2024-10-03] MEDS: 0.9% Normal Saline (500mL Bag) 500 ML 1000 ML IV (14:34)
[2024-10-03 14:40] LABS: Absolute Lymphocyte Count 1.12 X10^3/uL (0.83-4.51); Basophil# 0.04 X10^3/uL; Basophil% 0.4 % (0-1); Eosinophil# 0.13 X10^3/uL; Eosinophils% 1.4 % (0-5); Hematocrit 40.3 % (40-54); Hemoglobin 14.5 g/dL (13.0-16.5); Lymphocyte # 1.12 X10^3/ul (0.83-4.51); Lymphocyte % 12.4 % (19-41); Mean Corpuscular Hgb 34.9 pg (27.0-32.0); Mean Corpuscular Volume 96.9 fL (80-94); Mean Platelet Vol. 9.9 fl (6.2-12.0); Monocyte# 0.67 X10^3/uL; Monocyte% 7.4 % (0-10); NRBC Flagged by Analyzer 0 % (0-5); Platelet Count 189 K/mm3 (150-450); RBC Distribution Width CV 14.1 % (11.6-14.6); Red Blood Count 4.16 M/mm3 (4.6-6.2)
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
[2024-10-03] MEDS: Labetalol 20 MG/4 ML Vial IV (15:01)
--- NOTE | 2024-10-03 15:01 | PCA ---
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
[2024-10-03 15:02] LABS: ALB/GLOB Ratio 1.5 RATIO (0.9-2.4); AST(SGOT) 25 U/L (<=37); Alanine Aminotransfer ALT/SGPT 16 U/L (<=46); Albumin, Serum 4.4 g/dL (3.4-4.8); Alkaline Phosphatase 95 U/L (40-129); Anion Gap 15 (5-15); BUN 15 mg/dL (4-19); BUN/Creat Ratio 12.1 RATIO (10-20); Carbon Dioxide 19.3 mmol/L (21.0-32.0); Chloride 105 mmol/L (98-108); Creatinine, Serum 1.26 mg/dL (0.70-1.20); EST Glomerular Filtration Rate 63 (>60); Estimated Creatinine Clearance 58.04 ml/min (50-250); Globulin 2.8 g/dL (2.2-4.2); Glucose 74 mg/dL (70-99); Potassium 3.5 mmol/L (3.3-5.1); Protein, Total 7.2 g/dL (5.9-8.4); Sodium Level 139 mmol/L (133-145); Total Bilirubin 0.85 mg/dL (0.00-1.30)
[2024-10-03] MEDS: levETIRAcetam IV 1,000 MG/100 ML BAG 400 MG IV (15:06)
[2024-10-03] MEDS: HUM PROTHROMBIN CPLX LANS IV (15:13)
[2024-10-03] MEDS: VIAFLEX IV (15:13)
--- NOTE | 2024-10-03 15:24 | ED.RN ---
Debby Ricardo called per pt request, left voicemail to call back in order to update on pt's condition.
[2024-10-03 16:26] LABS: Alcohol, Blood (Medical)-Serum < 10.1 mg/dL (<=10.0)
--- OUTSIDE RECORDS SUMMARY | 2024-10-03 23:41 | XMS RPT_ITS | CCD ---
Author Organization [facility] Care Team Providers Care Partition Notcher Name Role Phone Dr. Sophie Craft Primary Care Provider Dr. Werner Winkler Attending Provider Dr. Yescia Smiley Emergency Provider Dr. Roosevelt Kruse Admit Provider Dr. Roosevelt Kruse Attending Provider Dr. Roosevelt Kruse Other Provider Dr. Johnnie Plascencia Attending Provider Dr. Roosevelt Kruse Referring Provider Dr. Sophie Craft Attending Provider Dr. Sophie Craft Referring Provider Sophie Craft Primary Care Provider Cesar London MD Unavailable Brenna Wright MD Unavailable Sophie Craft Primary Care Provider Sophie Craft Primary Care Provider Cesar London MD Unavailable Brenna Wright MD Unavailable Unavailable Primary Care Provider Unavailabl e Dr. Sophie Craft Primary Care Provider MD Thomas Snell Emergency Provider [phone] Cesar Henriquez Admit Provider Dr. Cesar Henriquez Other Provider Dr. Roosevelt Kruse Attending Provider Dr. Roosevelt Kruse Other Provider Dr. Eulalio Gutierrez Attending Provider Dr. Cesar Henriquez Attending Provider Dr. Sophie Craft Attending Provider [phone] Sophie Craft Referring Provider Wellington GEOGRAPHIC INFORMATION SYSTEMS MANAGER, GEOGRAPHIC INFORMATION SYSTEMS MANAGER-C Gabbie Attending Provider Aravind, Sophie Primary Care Unavailable Matt, [place] Attending Unavailable Aravind, Sophie Primary Care Unavailable Ricky, Alfonso Attending Unavailable Aravind, Sophie Referring Unavailable Aravind, Sophie Primary Care Unavailable AgvickigCesar Consulting Unavailable Roosevelt Kruse Attending Unavailable Agzafar, Cesar Admitting Unavailable Roosevelt Kruse Consulting Unavailable Aravind, Sophie Consulting Unavailable Wellington GEOGRAPHIC INFORMATION SYSTEMS MANAGER, Gabbie Referring Unavailable Wellington GEOGRAPHIC INFORMATION SYSTEMS MANAGER, Gabbie Attending Unavailable Aravind, Sophie Primary Care Unavailable Aravind, Sophie Primary Care Unavailable Aravind, Sophie Attending Unavailable Aravind, Sophie Referring Unavailable Aravind, Sophie Primary Care Unavailable AgyeponCesar way Consulting Unavailable Roosevelt Kruse Attending Unavailable Agyeponrayna, Cesar Admitting Unavailable Agyepong, Cesar Attending Unavailable Aravind, Sophie Primary Care Unavailable Aravind, Sophie Attending Unavailable Aravind, Sophie Primary Care Unavailable Aravind, Sophie Referring Unavailable Alfonso García Attending Unavailable Aravind, Sophie Referring Unavailable Wellington GEOGRAPHIC INFORMATION SYSTEMS MANAGER, Gabbie Attending Unavailable Aravind, Sophie Primary Care Unavailable Matt, Eulalio Attending Unavailable Aravind, Sophie Primary Care Unavailable Matt, [place] Attending Unavailable Matt, Eulalio Referring Unavailable Araivnd, Sophie Primary Care Unavailable Cesar London MD Unavailable Sophie Craft Primary Care Provider [phone] Cesar London MD Unavailable [phone] Brenna Wright MD Unavailable Sophie Craft Primary Care Provider Dr. Sophie Craft Primary Care Provider MD Channing Thomas Emergency Provider Dr. Cesar Henriquez Admit Provider Dr. Cesar Henriquez Other Provider Dr. Roosevelt Kruse Attending Provider Dr. Roosevelt Kruse Other Provider Dr. Eulalio Gutierrez Attending Provider Dr. Cesar Henriquez Attending Provider Dr. Sophie Craft Attending Provider Dr. Sophie Craft Referring Provider Wellington GEOGRAPHIC INFORMATION SYSTEMS MANAGER, JENSENC Gabbie Attending Provider Brenna Wright MD Unavailable VILLARREAL, ALFONSO Admitting Unavailable VILLARREAL, ALFONSO Attending Unavailable ARAVIND, SOPHIE Primary Care Unavailable ZMEILI, PEDRO Consulting Unavailable ISABELA HERNANDEZ Attending Unavailable ARAVIND, SOPHIE Primary Care Unavailable ISABELA HERNANDEZ Attending Unavailable ARAVIND, SOPHIE Primary Care Unavailable NETHING, BRENNA Attending Unavailable ARAVIND, SOPHIE Primary Care Unavailable ISABELA HERNANDEZ Attending Unavailable ARAVIND, SOPHIE Primary Care Unavailable VILLARREAL, ALFONSO Attending Unavailable ARAVIND, SOPHIE Primary Care Unavailable VILLARREAL, ALFONSO Attending Unavailable VILLARREAL, ALFONSO Referring Unavailable ARAVIND, SOPHIE Primary Care Unavailable CESAR DEL ROSARIO Attending Unavailable PRISCILA WAHL Referring Unavailable ARAVIND, SOPHIE Primary Care Unavailable DANAE GTZ Referring Unavailable ARAVIND, SOPHIE Primary Care Unavailable ARAVIND, SOPHIE Primary Care Unavailable BRENNA WRIGHT Attending Unavailable CORTEZHIROYAL BARLOWSHUA Referring Unavailable ARAVIND, SOPHIE Primary Care Unavailable VILLARREAL, ALFONSO Attending Unavailable VILLARREAL, ALFONSO Referring Unavailable ARAVIND, SOPHIE Primary Care Unavailable VILLARREAL, ALFONSO Attending Unavailable ARAVIND, SOPHIE Primary Care Unavailable NETBRENNA SANTANA Attending Unavailable ARAVIND, SOPHIE Primary Care Unavailable Aravind OSBORNE, Dr. Bustamante Primary Care Provider Dr. Rohit Greene DO Emergency Provider [phone] Allergies Allergy Classification Reported Allergen(s) Allergy Type Date of Onset Reaction(s) Facility (2 sources) Amiodarone Drug Allergy 05-01-2023 Vision Changes [facility] Medications Current Medications Medication Drug Class(es) Dates Sig (Normalized) Sig (Original) acetaminophen 500 mg oral capsule (13 sources) Start: 04-30-2023 take 1 capsule by mouth every six hours as needed Acetaminophen 500 mg capsule Active 500 mg PO EVERY 6 HOURS as needed April 30, 2023 1:00am Start: 04-02-2023 End: 04-12-2023 take 2 tablets by mouth every eight hours acetaminophen (Tylenol) 500 MG tablet Take 2 tablets (1,000 mg) by mouth in the morning and 2 tablets (1,000 mg) at noon and 2 tablets (1,000 mg) before bedtime. Do all this for 10 days. 0 04/02/2023 04/12/2023 Active Start: 03-25-2023 End: 04-12-2023 take 1000 mg by mouth every eight hours Start: 05-20-2022 End: 05-22-2022 take 1 tablet by mouth every six hours 650 mg, Oral, Every 6 hours, First dose on Thu05/21/22 at 0115, Phase II/On Unit Maximum dose of acetaminophen is 4000 mg from all sources in 24 hours. Start: 05-20-2022 End: 05-20-2022 acetaminophen (Tylenol) tabl et 1,000 mg Start: 05-20-2022 End: 05-20-2022 acetaminophen (Tylenol) tabl et 1,000 mg amiodarone hydrochloride 200 mg oral tablet (20 sources) Antiarrhythmic Start: 04-02-2023 End: 05-16-2023 take 2 tablets by mouth twice daily, then take 1 tablet by mouth once daily amiodarone (Pacerone) 200 MG tablet Take 2 tablets (400 mg) by mouth 2 times daily for 14 days, THEN 1 tablet (200 mg) daily. 86 tablet 0 04/02/2023 Active Start: 03-31-2023 End: 05-16-2023 Start: 03-24-2020 End: 04-26-2020 Amiodarone 200 mg tablet Dis continued 100 mg PO DAILY April 24, 2020 12:02pm April 26, 2020 11:54am Start: 03-24-2020 End: 04-26-2020 take 100 mg by mouth once daily Amiodarone Discontinued 100 MG PO DAILY April 24, 2020 11:02am April 26, 2020 10:54am amLODIPine 5 mg oral tablet (15 sources) Dihydropyridine Calcium Channel Evelyn Start: 03-27-2023 End: 06-01-2023 take 1 tablet by mouth once daily Amlodipine 5 mg tablet Active 5 mg PO DAILY April 30, 2023 1:00am aspirin 81 mg delayed release oral tablet (20 sources) Platelet Aggregation Inhibitor, Nonsteroidal Anti-inflammatory Drug Start: 03-24-2020 End: 04-02-2023 take 1 tablet by mouth once daily Aspirin 81 mg Tablet,Delayed Release (Dr/Ec) Active 81 mg PO DAILY@0800 October 30, 2021 12:00am Comment on above: Take 81 mg by mouth. furosemide 40 mg oral tablet (20 sources) Loop Diuretic Start: 03-31-2023 End: 04-01-2023 40 mg, IntraVENous, Daily, First dose (after last modification) on Thu03/31/23 at 0900 Start: 03-27-2023 End: 03-31-2023 40 mg, IntraVENous, 2 times daily, First dose (after last reorder) on Thu03/27/23 at 2100 Start: 03-27-2023 40 mg, IntraVE Nous, Once, On Thu03/27/23 at 0945, For 1 dose Start: 01-21-2023 End: 04-30-2023 take 1 tablet by mouth once daily Furosemide 40 mg tablet Discontinued 40 mg PO DAILY February 13, 2023 2:25pm April 30, 2023 2:16pm Magnesium (12 sources) take 1 tablet by becky th once daily MAGNESIUM PO Take 1 tablet by mouth daily. 0 Suspended take 1 tablet by mouth once cari y MAGNESIUM PO Take 1 tablet by mouth daily. 0 Active oxyCODONE hydrochloride 5 mg oral tablet (11 sources) Opioid Agonist Start: 03-31-2023 End: 12-14-2023 take 1 tablet by mouth every six hours as needed for pain oxyCODONE (Roxicodone) 5 MG immediate release tablet Indications: Acute post-operative pain Take 1 tablet (5 mg) by mouth every 6 hours as needed for severe pain (7-10) (acute post surgical pain) for up to 7 days. 28 tablet 0 04/02/2023 04/09/2023 Active Start: 03-26-2023 End: 03-30-2023 take 5 mg by mouth every four hours as needed for pain 5 mg, Oral, Every 4 hours PRN, moderate pain (4-6), Starting on Yue 03/26/23 at 0800, On hold since 03/29/2023 at 0805 until manually unheld Start: 05-22-2022 End: 05-27-2022 take 1 tablet by mouth every six hours as needed for pain oxyCODONE (Roxicodone) 5 MG immediate release tablet Indications: Postoperative pain Take 1 tablet (5 mg) by mouth every 6 hours as needed for severe pain (7-10) for up to 5 days. 21 tablet 0 05/22/2022 05/27/2022 Active Start: 05-21-2022 End: 05-21-2022 take 1 tablet by mouth every four hours as needed for pain 5 mg, Oral, Every 4 hours PRN, moderate pain (4-6), Starting on Thu05/21/22 at 0103, Phase II/On Unit pantoprazole 40 mg delayed release oral tablet (15 sources) Proton Pump Inhibitor Start: 03-26-2023 End: 05-03-2023 take 1 tablet by mouth once daily Pantoprazole 40 mg tablet,delayed release (DR/EC) Active 40 mg PO DAILY April 30, 2023 1:00am microencapsulated potassium chloride 10 meq extended release oral tablet (20 sources) Start: 04-03-2023 End: 04-02-2023 40 mEq, Oral, Daily, First dose on Thu04/03/23 at 0900, For 7 doses, Best given with food and plenty of water to minimize gastric irritation. Do not crush or chew. Start: 04-03-2023 End: 04-02-2023 40 mEq, Oral, Daily, First d ose on Thu04/03/23 at 0900, For 7 doses, Best given with food and plenty of water to minimize gastric irritation. Do not crush or chew. Start: 03-29-2023 End: 04-02-2023 40 mEq, Oral, Daily, First d ose on 03/29/23 at 0900, Best given with food and plenty of water to minimize gastric irritation. Do not crush or chew. Start: 03-29-2023 End: 03-29-2023 20 mEq, IntraVENous, at 50 m L/hr, Administer over 1 Hours, Every 1 hour, First dose on 03/29/23 at 0115, For 2 doses, Total dose: 40 mEq. Central line administration only. For central line administration only. Start: 03-26-2023 End: 04-02-2023 20 mEq, Oral, PRN, Hypokalem ia, Starting on Yue 03/26/23 at 0000, Phase II/On Unit, If patient is intubated or not tolerating PO use PRN IV replacement protocol Potassium level Dose LESS than 3.0 = Give 20 mEq x 3 doses 3.0-3.6 = Give 20 mEq x 2 doses Recheck potassium level 2 hour after replacement given, place order for lab under [place] If potassium level LESS than 3 after 1st replacement: Call surgeon. Do not crush or break. Do not crush or chew. Start: 02-12-2023 take 1 tablet by becky th once daily POTASSIUM CHLORIDE PO Take 1 tablet by mouth daily. 99 MG 0 02/12/2023 Suspended Start: 02-12-2023 take 1 tablet by becky once daily POTASSIUM CHLORIDE PO Take 1 tablet by mouth daily. 99 MG 0 02/12/2023 Active Start: 02-12-2023 take 1 tablet by becky th once daily POTASSIUM CHLORIDE PO Take 1 tablet by mouth daily. 0 02/12/2023 Active Start: 02-12-2023 End: 04-30-2023 take 2 tablets by mouth once daily, then take 1 tablet by mouth once daily Potassium Chloride 20 mEq tablet extended release Discontinued 20 meq PO DAILY February 12, 2023 12:00am April 30, 2023 2:16pm 2 tablets today, and one tablet daily. predniSONE 20 mg oral tablet (2 sources) Start: 01-04-2023 End: 01-09-2023 take 1 tablet by mouth twice daily predniSONE (DELTASONE) 20 mg tablet Indications: Subacute cough , SOB (shortness of breath) Take 1 tablet by mouth twice daily for 5 days. 10 tablet 0 01/04/2023 01/09/2023 Active Comment on above: Take 1 tablet by [facility] twice daily for 5 days. Completed/Discontinued Medications Medication Drug Class(es) Dates Sig (Normalized) Sig (Original) 20 ml 6-aminocaproic acid 250 mg/ml injection (1 source) Antifibrinolytic Agent Start: 03-25-2023 End: 03-25-2023 aminocaproic acid (Amicar) injection Acetaminophen / oxyCODONE (2 sources) Opioid Agonist Start: 05-21-2022 End: 05-22-2022 take 1 tablet by mouth every four hours as needed for pain oxyCODONE-acetamino phen (Percocet) 5-325 MG per tablet 1 tablet 20 ml albumin human, long term 250 mg/ml injection (7 sources) Human Serum Albumin Start: 03-30-2023 End: 03-30-2023 50 g, IntraVENous, at 60 mL/hr, Once, On 03/30/23 at 2130, For 1 dose, Infusion rate depends on indication and clinical situation. In emergencies, may administer as rapidly as necessary to improve clinical condition. After initial volume replacement: 25%: Do not exceed 1 mL/minute (60 mL/hr) in patients with normal plasma volume; 2 to 3 mL/minute (120 to 180 mL/hr) in patients with hypoproteinemia Start: 03-26-2023 End: 03-26-2023 50 g, IntraVENous, at 200 mL /hr, Administer over 1 Hours, Once, On Yue 03/26/23 at 0630, For 1 dose Start: 03-25-2023 End: 03-26-2023 25 g, IntraVENous, at 180 mL /hr, As needed, fluid bolus challenge PRN: PAD below goal (18) and/or Low BP (less than 90 SBP and/or less than 60 MAP) and/or Low urine output (less than 30ml/hr) per hemodynamic goals, Starting on 03/25/23 at 1150, For 2 doses, Phase II/On Unit, To be given in conjunction with PRN 250ml Lactate Ringer Bolus Use if hgb greater than 7.5 and PAD below goal (18) and/or Low BP (less than 90 SBP and/or less than 60 MAP) and/or Low urine output (less than 30ml/hr) per hemodynamic goals If hemodynamic goals unattained, proceed to second fluid bolus challenge If hgb less than 7.5 notify surgeon for orders. Start: 03-25-2023 End: 03-25-2023 albumin human 25 % IV soluti on [id number] 200 actuat albuterol 0.09 mg/actuat metered dose inhaler (2 sources) beta2-Adrenergic Agonist Start: 01-04-2023 take 2 puff(s) by inhalation every six hours as needed for wheezing albuterol HFA (PROAIR HFA) 90 mcg/actuation inhaler Indications: SOB (shortness of breath) Inhale 2 Puffs as instructed every 6 hours as needed for wheezing/shortness of breath. 18 g 0 01/04/2023 Active Comment on above: Inhale 2 Puffs as instructed every 6 willis rs as needed for wheezing/shortness of breath. albuterol 0.833 mg/ml / ipratropium bromide 0.167 mg/ml inhalation solution (6 sources) Anticholinergic, beta2-Adrenergic Agonist Start: 03-29-2023 End: 04-02-2023 3 mL, Nebulization, 2 times daily PRN, wheezing, Starting on Thu04/01/23 at 1400, Recovery & On Unit Start: 03-27-2023 End: 03-29-2023 3 mL, Nebulization, 4 times daily, First dose (after last modification) on Thu03/27/23 at 1200, Recovery & On Unit apixaban 5 mg oral tablet (20 sources) Factor Xa Inhibitor Start: 01-10-2023 End: 04-02-2023 take 1 tablet by mouth twice daily Apixaban (Eliquis) 5 mg tablet Discontinued 5 mg PO TWICE A DAY 180 January 23, 2023 10:35am February 13, 2023 10:36am atorvastatin 80 mg oral tablet (20 sources) HMG-CoA Reductase Inhibitor Start: 10-31-2021 End: 04-02-2023 take 1 tablet by mouth at bedtime Atorvastatin 80 mg tablet Discontinued 80 mg PO AT BEDTIME 90 December 02, 2021 12:17pm January 23, 2023 10:47am Start: 03-24-2020 End: 04-24-2020 take 1 tablet by mouth at bedtime Atorvastatin 40 MG tablet Discontinued 40 mg PO AT BEDTIME March 24, 2020 1:00am April 24, 2020 12:03pm Comment on above: Take 80 mg by mouth. azithromycin 250 mg oral tablet (2 sources) Macrolide Antimicrobial Start: 01-04-2023 azithromycin (ZITHROMAX Z-MEERA) 250 mg tablet Indications: Lower respiratory infection 2 tablets by mouth first day then 1 tablet the next 4 days 6 tablet 0 01/04/2023 Active Comment on above: 2 tablets by mouth f irst day then 1 tablet the next 4 days bacitracin 0.5 unt/mg topical ointment (10 sources) Start: 02-25-2023 End: 04-02-2023 Start: 02-25-2023 bacitracin 500 UNIT/GM ointment Apply topically See administration instructions for [address] q-tip and swab inside nostrils the night before surgery and AM of surgery. 14 g 0 02/25/2023 Suspended bisacodyl 10 mg rectal suppository (2 sources) Stimulant Laxative Start: 03-27-2023 End: 03-27-2023 take 10 mg rectal route once 10 mg, Rectal, Once, On Thu03/27/23 at 2145, For 1 dose 10 ml calcium chloride 100 mg/ml prefilled syringe (1 source) Start: 03-25-2023 End: 03-25-2023 calcium chloride 10 % injection calcium chloride 0.0014 meq/ml / potassium chloride 0.004 meq/ml / sodium chloride 0.103 meq/ml / sodium lactate 0.028 meq/ml injectable solution (10 sources) Start: 03-25-2023 End: 03-27-2023 250 mL, IntraVENous, at 124 mL/hr, Administer over 121 Minutes, Continuous PRN, fluid bolus challenge: lactated ringers bolus, Starting on Thu03/25/23 at 1701, For 3 doses, Phase II/On Unit, To be given in conjunction with PRN 25gm Albumin order Use if hgb greater than 7.5 and PAD below goal (18) and/or Low BP (less than 90 SBP and/or less than 60 MAP) and/or Low urine output (less than 30ml/hr) per hemodynamic goals If hemodynamic goals unattained, proceed to second fluid bolus challenge If hgb less than 7.5 notify surgeon for orders. Start: 05-20-2022 End: 05-21-2022 lactated Ringer's (LR) infus ion 100 ml calcium gluconate 20 mg/ml injection (4 sources) Start: 03-25-2023 End: 04-02-2023 2,000 mg, IntraVENous, at 50 mL/hr, Administer over 2 Hours, Once, On Thu03/27/23 at 0815, For 1 dose, Give 2gm Calcium gluconate for ionized calcium less than 4.3 premix bag carvedilol 3.125 mg oral tablet (10 sources) alpha-Adrenergic Evelyn, beta-Adrenergic Evelyn Start: 03-24-2020 End: 04-24-2020 take 1 tablet by mouth twice daily Carvedilol 3.125 MG tablet Discontinued 3.125 mg PO TWICE A DAY 60 March 24, 2020 1:00am April 24, 2020 12:03pm ceFAZolin 2000 mg injection (3 sources) Cephalosporin Antibacterial Start: 03-25-2023 End: 03-27-2023 take 2000 mg intravenously every eight hours 2,000 mg, IntraVENous, Administer over 30 Minutes, Every 8 hours, First dose on Thu03/25/23 at 1545, For 5 doses, Phase II/On Unit, premix bag, Suspected Indication (Select all that apply): Surgical Prophylaxis Start: 03-25-2023 End: 03-25-2023 ceFAZolin in dextrose 4% (An cef) IVPB 2,000 mg cefTRIAXone (Rocephin) 1,000 mg in dextrose 5 % 50 mL IVPB Mini-Bag Plus (2 sources) Start: 05-20-2022 End: 05-20-2022 cefTRIAXone (Rocephin) 1,000 mg in dextrose 5 % 50 mL IVPB Mini-Bag Plus chlorhexidine gluconate 1.2 mg/ml mouthwash (14 sources) Start: 03-25-2023 End: 03-27-2023 take 15 mL by mouth twice daily 15 mL, Mouth/Throat, 2 times daily, First dose on Thu03/25/23 at 1200, For 7 days, Phase II/On Unit, Rinse and spit. Do not swallow. Start: 02-25-2023 End: 04-02-2023 15 mL, Mouth/Throat, Once, O n Thu03/25/23 at 0600, For 1 dose, Preprocedure, Rinse and spit. Do not swallow. Start: 02-25-2023 take 15 mL by mouth in the morning chlorhexidine (Peridex) 0.12 % solution Use 15 mL in the mouth or throat See administration instructions for 2 doses. Swish and spit the night before surgery and AM of surgery. 30 mL 0 02/25/2023 Suspended cholecalciferol 9.52 unt/ml / glucose 357 mg/ml oral gel (2 sources) Vitamin D Start: 03-25-2023 End: 04-02-2023 15 g, Oral, As needed, low blood sugar, Starting on Thu03/25/23 at 1150, Recovery & On Unit, If blood glucose less than 50 mg/dL and patient ALERT and NOT NPO, give 2 tubes glucose gel. If blood glucose less than 70 mg/dL and patient ALERT and NOT NPO, give 1 tube glucose gel. Repeat blood glucose in 15 minutes. If blood glucose is less than 70 mg/dL, repeat treatment and recheck blood glucose in 15 minutes x2 and notify provider. clopidogrel 75 mg oral tablet (20 sources) P2Y12 Platelet Inhibitor Start: 10-31-2021 End: 01-07-2023 take 1 tablet by mouth once daily Clopidogrel 75 mg tablet Discontinued 75 mg PO DAILY 90 December 02, 2021 12:17pm January 07, 2023 10:40pm Comment on above: Take 75 mg by mouth. 100 ml dexmedetomidine 0.004 mg/ml injection (6 sources) Central alpha-2 Adrenergic Agonist Start: 03-28-2023 End: 03-30-2023 0.1-1.5 mcg/kg/hr 67.6 kg (1.69-25.35 mL/hr), IntraVENous, Continuous, Starting on Thu03/29/23 at 2000, For 10 hours, If Titrate Infusion? is No: Disregard instructions below. If Titrate infusion? is Yes: Titrate in increments of 0.2 mcg/kg/hr no more frequently than every 30 minutes to goal of therapy. If after titration rate change patient exhibits adverse hemodynamic response, next titration rate change may be adjusted by one-half of the previous rate change. If patient fails sedation interruption, resume dexmedetomidine infusion at 50% of previous rate., Titrate Infusion? Yes, Initial Infusion Dose: 0.2 mcg/kg/hr, Goal of Therapy: RASS 0 to -1, Contact Provider if: New onset HR less than 50 bpm, New onset SBP less than 90 mmHg, Patient is receiving maximum dose and is not achieving the goal of therapy Start: 03-25-2023 End: 03-26-2023 0.1-1.5 mcg/kg/hr 68 kg (1.7 -25.5 mL/hr), IntraVENous, Continuous, Starting on Thu03/25/23 at 1330, If Titrate Infusion? is No: Disregard instructions below. If Titrate infusion? is Yes: Titrate in increments of 0.2 mcg/kg/hr no more frequently than every 30 minutes to goal of therapy. If after titration rate change patient exhibits adverse hemodynamic response, next titration rate change may be adjusted by one-half of the previous rate change. If patient fails sedation interruption, resume dexmedetomidine infusion at 50% of previous rate., Titrate Infusion? Yes, Initial Infusion Dose: 0.2 mcg/kg/hr, Goal of Therapy: RASS 0 to -1, Contact Provider if: New onset HR less than 50 bpm, New onset SBP less than 90 mmHg, Patient is receiving maximum dose and is not achieving the goal of therapy docusate sodium 100 mg oral capsule (2 sources) Start: 05-20-2022 End: 05-22-2022 take 100 mg by mouth twice daily for constipation 100 mg, Oral, 2 times daily, First dose on Thu05/20/22 at 1100, Recovery & On Unit Bowel Regimen - for prevention of constipation. docusate sodium 50 mg / sennosides, long term 8.6 mg oral tablet (2 sources) Start: 03-25-2023 End: 04-02-2023 take 2 tablets by mouth once daily for constipation 2 tablet, Oral, Nightly, First dose on Thu03/25/23 at 2100, Recovery & On Unit, Bowel Regimen - for prevention of constipation. Drug or medicament (substance) (2 sources) Start: 02-12-2023 End: 04-02-2023 EPINEPHrine 5mg in 0.9% sodium chloride 250 mL infusion (weight-based) (1 source) Start: 03-25-2023 End: 03-25-2023 EPINEPHrine 5mg in 0.9% sodium chloride 250 mL infusion (weight-based) 10 ml esmolol hydrochloride 10 mg/ml injection (1 source) beta-Adrenergic Evelyn Start: 03-25-2023 End: 03-25-2023 esmolol (Brevibloc) injection 20 ml etomidate 2 mg/ml injection (1 source) General Anesthetic Start: 03-25-2023 End: 03-25-2023 etomidate (Amidate) injection famotidine 20 mg oral tablet (2 sources) Histamine-2 Receptor Antagonist Start: 05-20-2022 End: 05-20-2022 famotidine (Pepcid) tablet 20 mg Start: 05-20-2022 End: 05-20-2022 famotidine (Pepcid) tablet 2 0 mg 20 ml fentaNYL 0.05 mg/ml injection (1 source) Opioid Agonist Start: 03-25-2023 End: 03-25-2023 fentaNYL (Sublimaze) injection folic acid 1 mg oral tablet (2 sources) Start: 03-26-2023 End: 04-02-2023 take 1 mg by mouth once daily 1 mg, Oral, Daily, First dose on Yue 03/26/23 at 0900 gabapentin 100 mg oral capsule (2 sources) Anti-epileptic Agent Start: 05-20-2022 End: 05-20-2022 gabapentin (Neurontin) capsule 100 mg Start: 05-20-2022 End: 05-20-2022 gabapentin (Neurontin) capsu le 100 mg glucagon (rdna) 1 mg injection (2 sources) Antihypoglycemic Agent Start: 03-25-2023 End: 04-02-2023 1 mg, IntraMUSCular, PRN, low blood sugar, Blood glucose less than 70 mg/dL and patient NOT ALERT or NPO and does not have IV access., Starting on Thu03/25/23 at 1150, Recovery & On Unit, After administration, attempt intravenous access and start D5W at 100 mL/hr. Repeat blood glucose in 15 minutes x2 and notify provider. 150 ml glucose 50 mg/ml injection (4 sources) Start: 03-25-2023 End: 04-02-2023 12.5 g, IntraVENous, PRN, low blood sugar, Blood glucose less than 70 mg/dL and patient NOT ALERT or NPO., Starting on Thu03/25/23 at 1150, Recovery & On Unit, If patient does not respond within 5 minutes, repeat dose x1. Start D5W at 100 mL/hour until ordering provider can be reached. Repeat blood glucose in 15 minutes. If blood glucose is less than 70 mg/dL, repeat treatment and recheck blood glucose in 15 minutes x2. If using Glucostabilizer, dose as instructed per system. Start: 03-25-2023 End: 04-02-2023 100 mL/hr, IntraVENous, PRN, Blood sugar less than 70mg/dL, Starting on Thu03/25/23 at 1150, Recovery & On Unit, Start infusion following administration of dextrose 50% or glucagon. 1 ml glycopyrrolate 0.2 mg/ml injection (1 source) Start: 03-25-2023 End: 03-25-2023 glycopyrrolate (Robinul) injection 0.5 ml heparin sodium, porcine 60761 unt/ml prefilled syringe (4 sources) Unfractionated Heparin, Anti-coagulant Start: 03-26-2023 End: 04-01-2023 inject 5000 [IU] by subcutaneous injection twice daily 5,000 Units, SubCUTAneous, 2 times daily, First dose on Yue 03/26/23 at 0900 Start: 03-25-2023 End: 03-25-2023 heparin injection hydrALAZINE hydrochloride 50 mg oral tablet (8 sources) Arteriolar Vasodilator Start: 03-28-2023 End: 04-02-2023 take 50 mg by mouth three times daily 50 mg, Oral, 3 times daily, First dose (after last modification) on Thu03/28/23 at 0900, On hold since Thu04/01/2023 at 0719 until manually unheld Start: 03-27-2023 End: 03-28-2023 take 25 mg by mouth three times daily 25 mg, Oral, 3 times daily, First dose on Thu03/27/23 at 1700 Start: 03-27-2023 End: 04-01-2023 take 20 mg intravenously every four hours as needed for hypertension 20 mg, IntraVENous, Every 4 hours PRN, high blood pressure, SBP greater than 160, Starting on Thu03/27/23 at 0754 Start: 05-20-2022 End: 05-22-2022 take 10 mg intravenously every four hours as needed for hypertension hydrALAZINE (Apresoline) injection 10 mg hydrocortisone 10 mg/ml vaginal cream (2 sources) Corticosteroid Start: 03-31-2023 End: 04-02-2023 apply 1 dose topically twice daily Topical, 2 times daily, First dose on Thu03/31/23 at 1445 1 ml HYDROmorphone hydrochloride 1 mg/ml cartridge (10 sources) Opioid Agonist Start: 03-25-2023 End: 03-26-2023 take 0.5 mg by mouth once 0.5 mg, IntraVENous, Once, On Yue 03/26/23 at 0630, For 1 dose, If oral and IV narcotics ordered, use oral first and only use IV if oral is ineffective or cannot take oral. Do Not give oral and IV within 1 hour of each other unless specifically ordered. Start: 03-25-2023 End: 03-25-2023 Starting on Thu03/25/23 at 1312, For 1 dose, Charline Esquivel: stone override Start: 05-20-2022 End: 05-22-2022 0.5 mg, IntraVENous, Every 3 hours PRN, severe pain (7-10), Starting on Thu05/21/22 at 0103, Post-Delivery If oral and IV narcotics ordered, use oral first and only use IV if oral is ineffective or cannot take oral. Do Not give oral and IV within 1 hour of each other unless specifically ordered. hydrOXYzine pamoate 25 mg oral capsule (2 sources) Antihistamine Start: 03-27-2023 End: 04-01-2023 take 25 mg by mouth every six hours as needed for anxiety 25 mg, Oral, Every 6 hours PRN, anxiety, Starting on Thu03/27/23 at 1230 1 ml hyoscyamine sulfate 0.5 mg/ml injection (2 sources) Start: 05-20-2022 End: 05-22-2022 take 0.25 mg intravenously every four hours as needed for muscle spasms hyoscyamine (Levsin) injection 0.25 mg insulin glargine 100 unt/ml injectable solution (2 sources) Insulin Analog Start: 03-26-2023 End: 03-26-2023 inject 18 [IU] by subcutaneous injection once 18 Units, SubCUTAneous, Once, On Yue 03/26/23 at 1115, For 1 dose, Please stop insulin drip 1.5 hours after Lantus has been given 100 ml insulin, regular, human 1 unt/ml injection (3 sources) Insulin Start: 03-25-2023 End: 03-26-2023 1-50 Units/hr (1-50 mL/hr), IntraVENous, Continuous, Starting on Thu03/25/23 at 1200, Recovery & On Unit, As guided by calculator flowsheet Low target: 120 High target: 160 Hold insulin infusion if BS< 100 mg/dl, if BS < 70 mg/dl follow hypoglycemia treatment orders, continue to check BS as ordered, and restart insulin infusion if and when BS increases back into goal range. BUD: 30 days at room temperature Start: 03-25-2023 End: 03-25-2023 insulin regular 100 units in 100 mL NS (Myxredlin) infusion (premix) labetalol hydrochloride 5 mg/ml injectable solution (2 sources) beta-Adrenergic Evelyn Start: 05-20-2022 End: 05-22-2022 take 10 mg intravenously every four hours as needed for hypertension labetalol (Normodyne,Trandate) injection 10 mg levoFLOXacin 750 mg oral tablet (5 sources) Quinolone Antimicrobial Start: 01-10-2023 End: 01-21-2023 take 1 tablet by mouth once daily Levofloxacin 750 mg tablet Discontinued 750 mg PO DAILY 4 January 10, 2023 12:00am January 21, 2023 10:43am lidocaine hydrochloride 0.02 mg/mg topical gel (5 sources) Antiarrhythmic, Amide Local Anesthetic Start: 03-27-2023 End: 03-27-2023 apply 0.5 mL topically once Topical, Once, On Thu03/27/23 at 2044, For 1 dose, Draw up and instill 0.5 mL into the nares 5 minutes before inserting tube. If oxymetazoline is also ordered, instill the Lidocaine jelly after instilling the oxymetazoline spray. Start: 03-27-2023 End: 03-27-2023 apply 0.5 mL topically once Topical, Once, On 03/27 at 204, For 1 dose, Draw up and instill 0.5 mL into the nares 5 minutes before inserting tube. If oxymetazoline is also ordered, instill the Lidocaine jelly after instilling the oxymetazoline spray. Start: 03-25-2023 End: 04-02-2023 1 patch, Topical, Administer over 12 Hours, Daily, First dose on Thu03/25/23 at 1200, Recovery & On Unit, Cut in half and place on both sides of the incision. Patch may remain in place for up to 12 hours in any 24 hour period. Start: 03-25-2023 End: 03-25-2023 lidocaine PF (Xylocaine) 2 % injection lisinopril 5 mg oral tablet (10 sources) Angiotensin Converting Enzyme Inhibitor Start: 04-26-2020 End: 05-30-2021 take 1 tablet by mouth once daily Lisinopril 5 mg tablet Discontinued 5 mg PO DAILY April 26, 2020 1:00am May 30, 2021 8:51am magnesium hydroxide 80 mg/ml oral suspension (2 sources) Start: 03-25-2023 End: 04-02-2023 take 30 mL by mouth every twenty-four hours as needed for constipation 30 mL, Oral, Daily PRN, constipation, Starting on Thu03/25/23 at 1150, Recovery & On Unit, 1st line for treatment of constipation - give scheduled if no bowel movement in past 24 hours metoprolol tartrate 25 mg oral tablet (20 sources) beta-Adrenergic Evelyn Start: 03-27-2023 End: 03-30-2023 12.5 mg, Oral, 2 times daily, First dose on Thu03/27/23 at 1330, Hold for SBP less than 105 and/or MAPs less than 65 and/or HR less than 60 Start: 01-21-2023 End: 04-02-2023 take 1 tablet by mouth twice daily Metoprolol Tartrate 25 mg tablet Active 25 mg PO TWICE A DAY January 23, 2023 10:35am Start: 01-10-2023 End: 01-21-2023 Metoprolol Tartrate 25 mg Ta blet Discontinued 12.5 mg PO TWICE A DAY 30 January 10, 2023 12:00am January 21, 2023 11:20am Start: 01-10-2023 End: 01-21-2023 take 12.5 mg by mouth twice daily Metoprolol Tartrate Discontinued 12.5 MG PO TWICE A DAY January 09, 2023 11:00pm January 21, 2023 10:20am 2 ml midazolam 1 mg/ml injection (1 source) Benzodiazepine Start: 03-25-2023 End: 03-25-2023 midazolam (Versed) injection mirtazapine 15 mg disintegrating oral tablet (2 sources) Start: 03-30-2023 End: 04-02-2023 take 1 tablet by mouth once daily 15 mg, Oral, Nightly, First dose on Thu03/30/23 at 2100, Remove from blister pack and dissolve tablet on tongue. Do not chew, crush, or split. 1 ml morphine sulfate 4 mg/ml cartridge (2 sources) Opioid Agonist Start: 03-27-2023 End: 03-27-2023 take 1 dose by mouth every hour 2 mg, IntraVENous, Once, On Thu03/27/23 at 2130, For 1 dose, If oral and IV narcotics ordered, use oral first and only use IV if oral is ineffective or cannot take oral. Do Not give oral and IV within 1 hour of each other unless specifically ordered. mupirocin 0.02 mg/mg topical ointment (4 sources) RNA Synthetase Inhibitor Antibacterial Start: 03-25-2023 End: 03-28-2023 Nasal, 2 times daily, First dose on Thu03/25/23 at 1200, For 4 days, Phase II/On Unit Start: 03-25-2023 End: 03-25-2023 take 1 dose nasal route once Nasal, Once, On 03/25 at 0600, For 1 dose, Preprocedure, Apply liberal amount per nostril the morning of surgery using a q-tip. Do not totally occlude either nostril. NITROGLYCERIN 1000 MCG / 10 ML SYRINGE (CHARGE ONLY) (1 source) Start: 03-25-2023 End: 03-25-2023 NITROGLYCERIN 1000 MCG / 10 ML SYRINGE (CHARGE ONLY) 100 ml sodium nitroprusside 0.5 mg/ml injection (4 sources) Start: 03-25-2023 End: 03-29-2023 0.3-3 mcg/kg/min 68 kg (2.448-24.48 mL/hr, rounded to 2.45-24.48 mL/hr), IntraVENous, Continuous, Starting on Thu03/25/23 at 1200, If ordered with a ranged dose and not at goal parameter(s), initiate at lowest dose in ordered range. Titrate by 0.5 mcg/kg/min every 5 minutes as needed to reach and maintain goal. Contact prescriber if unable to maintain goal at max ordered dose., Titrate Infusion? Yes, Initial Infusion Dose: 0.25 mcg/kg/min, Goal of Therapy is: MAP, MAP Goal: Other, Goal MAP less than: 65-75, Contact Provider if: MAP less than, MAP less than: 75 Start: 03-25-2023 End: 03-25-2023 Starting on Thu03/25/23 at 1146, For 1 dose, Deon Monge: stone override ondansetron ODT (Zofran-ODT) disintegrating tablet 4 mg (2 sources) Start: 05-21-2022 End: 05-22-2022 take 1 tablet by mouth every eight hours as needed for nausea and vomiting ondansetron ODT (Zofran-ODT) disintegrating tablet 4 mg oxymetazoline hydrochloride 0.5 mg/ml nasal spray (2 sources) Start: 03-27-2023 End: 03-27-2023 2 spray, Each Nostril, Once, On Thu03/27/23 at 204, For 1 dose, Two sprays in each nares 5 minutes prior to inserting tube. Start: 03-27-2023 End: 03-27-2023 2 spray, Each Nostril, Once, On Thu03/27/23 at 204, For 1 dose, Two sprays in each nares 5 minutes prior to inserting tube. perfusion prime builder (1 source) Start: 03-25-2023 End: 03-25-2023 perfusion prime builder Phenylephrine HCl (Pressors) 1 MG/10ML injection (1 source) Start: 03-25-2023 End: 03-25-2023 Phenylephrine HCl (Pressors) 1 MG/10ML injection polyethylene glycol 3350 [id number] mg powder for oral solution (2 sources) Osmotic Laxative Start: 03-25-2023 End: 04-02-2023 17 g, Oral, Daily, First dose on Thu03/25/23 at 1200, Recovery & On Unit, Bowel Regimen - for prevention of constipation. prasugrel 10 mg oral tablet (20 sources) P2Y12 Platelet Inhibitor Start: 03-24-2020 End: 04-26-2020 take 1 tablet by mouth once daily Prasugrel Hcl 10 mg tablet Discontinued 10 mg PO DAILY April 24, 2020 12:03pm April 24, 2020 2:22pm 100 ml propofol 10 mg/ml injection (3 sources) General Anesthetic Start: 03-25-2023 End: 03-26-2023 5-50 mcg/kg/min 68 kg (2.04-20.4 mL/hr), IntraVENous, Continuous, Starting on Thu03/25/23 at 1200, Recovery & On Unit, Instructions If RASS 1 point below goal - decrease dose by 5mcg/kg/min no faster than every 5 min If RASS 2 points below goal- decrease dose by 10mcg/kg/min no faster than every 5 min If RASS at goal, continue current dose If RASS 2 or more points above goal - increase dose by 10mcg/kg/min no faster than every 5 min If RASS 1 point above goal - increase dosee by 5mcg/kg/min no faster than every 5 min If after titration rate change patient exhibits adverse hemodynamic response, next titration rate change may be adjusted by one-half of the previous rate change If patient fails sedation interruption, resume propofol titration at 50% of previous rate General Anesthetic - do not give without appropriate ventilation support. Do not administer propofol in same IV catheter as blood or plasma. Discard any unused portion of propofol vials and tubing after 12 hours., Titrate Infusion? Yes, Initial Infusion Dose: 30 mcg/kg/min, Goal of Therapy: RASS of -1 to 0, Contact Provider if: Patient is receiving maximum dose and is not achieving the goal of therapy Start: 03-25-2023 End: 03-25-2023 propofol (Diprivan) infusion 25 ml protamine sulfate (long term) 10 mg/ml injection (1 source) Start: 03-25-2023 End: 03-25-2023 protamine injection rocuronium bromide 10 mg/ml injectable solution (1 source) Nondepolarizing Neuromuscular Evelyn Start: 03-25-2023 End: 03-25-2023 rocuronium (ZeMuron) injection simethicone 80 mg chewable tablet (4 sources) Start: 03-26-2023 End: 04-02-2023 take 80 mg by mouth four times daily as needed 80 mg, Oral, 4 times daily PRN, flatulence, Starting on Thu03/31/23 at 0015 10 ml sodium bicarbonate 84 mg/ml injection (4 sources) Start: 03-25-2023 End: 03-25-2023 Starting on Thu03/25/23 at 1302, For 1 dose, Charline Esquivel: cabinet override Start: 03-25-2023 End: 03-25-2023 50 mEq, IntraVENous, Once, O n Thu03/25/23 at 1300, For 1 dose 5 ml sodium chloride 9 mg/ml injection (20 sources) Start: 03-25-2023 End: 04-02-2023 10 mL, IntraVENous, Every 12 hours scheduled (2 times per day), First dose on Thu03/25/23 at 2100, Recovery & On Unit Start: 03-25-2023 End: 03-26-2023 take 20 mL intravenously every hour 20 mL/hr, IntraVENous, Continuous, Starting on Thu03/25/23 at 1200, Recovery & On Unit, 20 ml/hr to SP(introducer) and WT on [place] Jean-Claude Catheter; once [place] discontinued run at 20 ml/hr through SP(introducer) Start: 03-25-2023 End: 04-02-2023 take 10 mL intravenously once as needed 10 mL, IntraVENous, PRN, line care, Starting on Thu03/25/23 at 1150, Recovery & On Unit, After every IV line use Start: 03-25-2023 End: 04-02-2023 take 100 mL intravenously every hour as needed, then take 20 mL intravenously every hour as needed 5-250 mL/hr, IntraVENous, PRN, if patient receiving piggyback infusions and maintenance fluids are not ordered OR KVO fluids to protect IV site / prevent frequent line interruptions/ long duration, Starting on Thu03/25/23 at 1150, Recovery & On Unit, For piggyback infusion, administer at same rate as piggyback for a total of 25 mL. Enter 25 mL into dose field and piggyback rate into rate field of order. If piggyback is infusing at a rate less than 100 mL/hr, enter 25 mL into dose field and 100 mL/hr into rate field of order. For KVO fluids, enter rate of 20 mL/hr or less into rate field of order. Start: 03-25-2023 End: 03-25-2023 sodium chloride 0.9 % infusi on Start: 05-20-2022 End: 05-22-2022 sodium chloride 0.9 % infusi on Start: 05-20-2022 End: 05-22-2022 5-250 mL/hr, IntraVENous, SD N, if patient receiving piggyback infusions and maintenance fluids are not ordered OR KVO fluids to protect IV site / prevent frequent line interruptions/ long duration, Starting on Thu05/20/22 at 1041, Recovery & On Unit For piggyback infusion, administer at same rate as piggyback for a total of 25 mL. Enter 25 mL into dose field and piggyback rate into rate field of order. If piggyback is infusing at a rate less than 100 mL/hr, enter 25 mL into dose field and 100 mL/hr into rate field of order. For KVO fluids, enter rate of 20 mL/hr or less into rate field of order. Start: 05-20-2022 End: 05-22-2022 take 10 mL intravenously once 10 mL, IntraVENous, PRN, line care, Starting on Thu05/21/22 at 0103, Phase II/On Unit After every IV line use 5 ml sugammadex 100 mg/ml injection (2 sources) Start: 03-25-2023 End: 03-25-2023 270 mg (rounded from 272 mg = 4 mg/kg 68 kg), IntraVENous, Once, On Thu03/25/23 at 1230, For 1 dose thiamine 100 mg oral tablet (2 sources) Start: 03-26-2023 End: 04-02-2023 take 100 mg by mouth once daily 100 mg, Oral, Daily, First dose on Thu03/26/23 at 0900 ticagrelor 90 mg oral tablet (10 sources) Start: 04-26-2020 End: 11-22-2020 take 1 tablet by mouth twice daily Ticagrelor 90 mg tablet Discontinued 90 mg PO TWICE A DAY 180 April 26, 2020 1:00am November 22, 2020 8:41am water 1000 mg/ml irrigation solution (2 sources) Start: 05-20-2022 End: 05-22-2022 sterile water irrigation solution 3,000 mL (6 sources) Start: 03-25-2023 End: 04-02-2023 [Order 1 Start] Name: magnesium sulfate IVPB premix 2,000 mg Signed Summary: 2,000 mg, IntraVENous, at 25 mL/hr, Administer over 2 Hours, As needed, Per Magnesium Replacement Protocol, Starting on Thu03/25/23 at 1150, Recovery & On Unit, Mg Lab Replacement Action 1.4-1.6 2 gram IVPB x 1 doses 1.0-1.3 4 gram IVPB x 1 doses Less than 1.0 CALL PHYSICIAN and 4 gram IVPB x 1 doses Infuse at 1 gram/hr. Repeat Mag level next AM. Not for use in Patients with CrCl less than 30 mL/min. [Order 1 End] [Order 2 Start] Name: magnesium sulfate IVPB 4,000 mg Signed Summary: 4,000 mg, IntraVENous, at 25 mL/hr, Administer over 4 Hours, As needed, Per Magnesium Replacement Protocol, Starting on Thu03/25/23 at 1150, Recovery & On Unit, Mg Lab Replacement Action 1.4-1.6 2 gram IVPB x 1 doses 1.0-1.3 4 gram IVPB x 1 doses Less than 1.0 CALL PHYSICIAN and 4 gram IVPB x 1 doses Infuse at 1 gram/hr. Repeat Mag level next AM. Not for use in Patients with CrCl less than 30 mL/min. [Order 2 End] Start: 03-25-2023 End: 04-02-2023 [Order 1 Start] Name: adithya ium chloride IVPB 20 mEq Signed Summary: 20 mEq, IntraVENous, at 50 mL/hr, Administer over 1 Hours, 3 times daily PRN, hypokalemia, Starting on Thu03/25/23 at 1150, Recovery & On Unit, For Central Line Use Only K Lab Replacement Action 3.1-3.5 20 mEq IVPB x 1 doses 2.7-3.0 20 mEq IVPB x 2 doses (40 mEq Total) less than 2.7 CALL PROVIDER and administer 20 mEq IVPB x 2 doses (40 mEq Total) Infuse at 20 mEq/hr Repeat Potassium lab 1 hour after final administration. Protocol not for use in Patients with CrCl less than 30mL/min For central line administration only. [Order 1 End] [Order 2 Start] Name: potassium chloride 20 mEq in sodium chloride 0.9 % 250 mL IVPB Signed Summary: 20 mEq, IntraVENous, at 130 mL/hr, Administer over 2 Hours, Every 8 hours PRN, hypokalemia, Starting on Thu03/25/23 at 1150, Recovery & On Unit, For Peripheral Line Use K Lab Replacement Action 3.1-3.5 20 mEq IVPB x 1 doses 2.7-3.0 40 mEq IVPB x 1 doses less than 2.7 CALL PROVIDER and administer 40 mEq IVPB x 1 dose Infuse at 10 mEq/hr Repeat Potassium lab 1 hour after administration. Protocol not for use in Patients with CrCl less than 30mL/min [Order 2 End] [Order 3 Start] Name: potassium chloride 40 mEq in NS 500 mL IVPB (premix) Signed Summary: 40 mEq, IntraVENous, at 125 mL/hr, Administer over 4 Hours, 3 times daily PRN, hypokalemia, Starting on Thu03/25/23 at 1150, Recovery & On Unit, For Peripheral Line Use. K Lab Replacement Action 3.1-3.5 20 mEq IVPB x 1 doses 2.7-3.0 40 mEq IVPB x 1 doses less than 2.7 CALL PROVIDER and administer 40 mEq IVPB x 1 dose Infuse at 10 mEq/hr Repeat Potassium lab 1 hour after administration. Protocol not for use in Patients with CrCl less than 30mL/min [Order 3 End] Start: 03-25-2023 End: 04-02-2023 take 4 mg by mouth every eight hours as needed for nausea and vomiting [Order 1 Start] Name: ondansetron ODT (Zofran-ODT) disintegrating tablet 4 mg Signed Summary: 4 mg, Oral, Every 8 hours PRN, nausea, vomiting, Starting on Thu03/25/23 at 1150, Recovery & On Unit, 1st Line. If inadequate response within 60 minutes, proceed to next-line agent or contact provider if no further options ordered. Patient should allow tablet to dissolve on tongue. Do not remove from blister pack until just before administering. [Order 1 End] [Order 2 Start] Name: ondansetron (Zofran) injection 4 mg Signed Summary: 4 mg, IntraVENous, Every 6 hours PRN, nausea, vomiting, Starting on Thu03/25/23 at 1150, Recovery & On Unit, 1st Line. Give IV if patient is unable to take orally. If inadequate response within 60 minutes, proceed to next-line agent or contact provider if no further options ordered. [Order 2 End] Problems Active Problems Problem Classification Problem Date Documented Da te Episodic/Chronic Aortic; peripheral; and visceral artery aneurysms (20 sources) Abdominal aortic aneurysm; Translations: [Abdominal aortic aneurysm (AAA)] Onset: 2 04-07-2022 Chronic Comment on above: CTA- images reviewed , 6.5 cm AAA, short infrarenal neck with abnormal contour/focal narrowing, reverse taper Cardiac dysrhythmias (20 sources) Nonsustained ventricular tachycardia ; Translations: [Ventricular tachycardia] Onset: 0 Chronic Comment on above: 03/25/2023:Radiofreq uency pulmonary vein isolation and application of 40 mm atrial clip for left atrial appendage occlusion Complication of device; implant or graft (4 sources) Arteriosclerosis of coronary artery bypass graft; Translations: [Atherosclerosis of coronary artery bypass graft(s), unspecified, with unspecified angina pectoris] Onset: 3 03-25-2023 Chronic Congestive heart failure; nonhypertensive (16 sources) Congestive heart failure; Translations: [Heart failure, unspecified] Onset: 3 01-07-2023 Chronic Coronary atherosclerosis and other heart disease (20 sources) History of acute ST segment elevation myocardial infarction; Translations: [Old myocardial infarction] Onset: 0 Chronic Disorders of lipid metabolism (20 sources) Hyperlipidemia; Translations: [Hyperlipidemia, unspecified] Onset: 3 Chronic Fluid and electrolyte disorders (3 sources) Hypokalemia; Translations: [Hypokalemia] 02-12-2023 Episodic Hypertension with complications and secondary hypertension (15 sources) Hypertensive urgency ; Translations: [Hypertensive urgency] Onset: 3 01-07-2023 Chronic Malaise and fatigue (11 sources) Fatigue; Translations: [Other fatigue] Onset: 3 01-23-2023 Episodic Nutritional deficiencies (13 sources) Nutritional marasmus; Translations: [Unspecified severe protein-calorie malnutrition] Onset: 3 03-31-2023 Chronic Other circulatory disease (8 sources) Disorder of carotid artery; Translations: [Disorder of arteries and arterioles, unspecified] 11-13-2021 Chronic Other circulatory disease (6 sources) Disorder of arteries and arterioles, unspecified; Translations: [Unspecified disorders of arteries and arterioles] Chronic Other circulatory disease (2 sources) Elevated blood-pressure reading without diagnosis of hypertension; Translations: [Elevated blood-pressure reading, without diagnosis of hypertension] 01-04-2023 Episodic Other circulatory disease (1 source) H/O: aortic aneurysm; Translations: [Personal history of other diseases of the circulatory system] 01-07-2023 Episodic Other circulatory disease (2 sources) Arterial bruit; Translations: [Other specified symptoms and signs involving the circulatory and respiratory systems] 03-10-2023 Episodic Other diseases of kidney and ureters (3 sources) Kidney lesion; Translations: [Disorder of kidney and ureter, unspecified] Episodic Other gastrointestinal disorders (8 sources) Abdominal pulsatile mass; Translations: [Intra-abdominal and pelvic swelling, mass and lump, unspecified site] 12-04-2021 Episodic Other gastrointestinal disorders (2 sources) Intra-abdominal and pelvic swelling, mass and lump, unspecified site; Translations: [Abdominal or pelvic swelling, mass, or lump, unspecified site] Episodic Other hematologic conditions (6 sources) Raised cardiac enzyme or marker; Translations: [Other specified abnormalities of plasma proteins] 01-07-2023 Episodic Other hematologic conditions (4 sources) Other specified abnormalities of plasma proteins; Translations: [Other abnormal blood chemistry] Onset: 3 01-07-2023 Episodic Other lower respiratory disease (1 source) Lower respiratory tract infection; Translations: [Unspecified acute lower respiratory infection] 01-04-2023 Episodic Other lower respiratory disease (2 sources) Cough; Translations: [Subacute cough] 01-04-2023 Episodic Other lower respiratory disease (2 sources) Dyspnea; Translations: [Shortness of breath] 01-04-2023 Episodic Other lower respiratory disease (1 source) Hemoptysis; Translations: [Hemoptysis] 01-07-2023 Episodic Other lower respiratory disease (1 source) Chest pain on breathing; Translations: [Chest pain on breathing] 01-07-2023 Episodic Other nervous system disorders (2 sources) Acute postoperative pain; Translations: [Other acute postprocedural pain] 04-02-2023 Episodic Other screening for suspected conditions (not mental disorders or infectious disease) (18 sources) Echocardiogram abnormal; Translations: [Abnormal findings on diagnostic imaging of heart and coronary circulation] Onset: 3 01-23-2023 Episodic Anna-; endo-; and myocarditis; cardiomyopathy (except that caused by tuberculosis or sexually transmitted disease) (1 source) Cardiomyopathy, unspecified; Translations: [Cardiomyopathy, unspecified] Onset: 3 Chronic Substance-related disorders (20 sources) Nicotine dependence; Translations: [Nicotine dependence, unspecified, uncomplicated] Onset: 3 Chronic Thyroid disorders (2 sources) Hyperthyroidism; Translations: [Thyrotoxicosis, unspecified without thyrotoxic crisis or storm] 04-30-2023 Chronic Transient cerebral ischemia (20 sources) Transient cerebral ischemia; Translations: [Transient cerebral ischemic attack, unspecified] Chronic Unclassified (1 source) Abdominal aortic aneurysm, without rupture, unspecified; Translations: [Abdominal aortic aneurysm, without rupture, unspecified] Onset: 3 Unclassified (2 sources) Post-op; Translations: [Post-op] Onset: 3 Unclassified (1 source) Infrarenal abdominal aortic aneurysm, without rupture (HCC); Translations: [Infrarenal abdominal aortic aneurysm, without rupture (HCC)] Onset: 2 Past or Other Problems Problem Classification Problem Date Documented Da te Episodic/Chronic Coronary atherosclerosis and other heart disease (11 sources) Presence of coronary angioplasty implant and graft; Translations: [Percutaneous transluminal coronary angioplasty status] Onset: 03-22-2020 Episodic Diabetes mellitus without complication (2 sources) Hyperglycemia, unspecified; Translations: [Hyperglycemia, unspecified] Onset: 03-20-2023 Episodic Genitourinary symptoms and ill-defined conditions (5 sources) Dajuan hematuria; Translations: [Gross hematuria] Onset: 09-11-2022 Episodic Other aftercare (2 sources) FPC (current) use of anticoagulants; Translations: [FPC (current) use of anticoagulants] Onset: 03-20-2023 Episodic Other circulatory disease (2 sources) Other specified symptoms and signs involving the circulatory and respiratory systems; Translations: [Other specified symptoms and signs involving the circulatory and respiratory systems] Onset: 03-10-2023 Episodic Other diseases of kidney and ureters (2 sources) Disorder of kidney and ureter, unspecified; Translations: [Disorder of kidney and ureter, unspecified] Onset: 09-11-2022 Episodic Other lower respiratory disease (2 sources) Snoring; Translations: [Snoring] Onset: 03-20-2023 Episodic Other nervous system disorders (2 sources) Other acute postprocedural pain; Translations: [Other acute postprocedural pain] Onset: 03-25-2023 Episodic Other nervous system disorders (2 sources) Postoperative pain ; Translations: [Other acute postprocedural pain] Episodic Unclassified (1 source) Infrarenal abdominal aortic aneurysm, without rupture (HCC); Translations: [Infrarenal abdominal aortic aneurysm, without rupture (HCC)] Onset: 03-10-2023 Results Test Name Value Interpretation Reference Range Facility Absolute lymphocyte countOrd ered By: Rohit Greene on 10-03-2024 Lymphocytes Auto (Unsp spec) [#/Vol] 1.12 10*3/uL 0.83-4.51 [facility] Absolute neutrophil countOrd ered By: Rohit Greene on 10-03-2024 Neutrophils (Bld) [#/Vol] 7.0 10*3/uL 2.0-7.7 [facility] Anion gap in Serum or Plasma Ordered By: Rohit Greene on 10-03-2024 Anion gap [Moles/Vol] 15 mmol/L 5-15 [facility] Automated lymphocyte count a s percentage of total leukocytesOrdered By: Rohit Greene on 10-03-2024 Lymphocytes/100 WBC Auto (Unsp spec) 12.4 % Low 19-41 [facility] BUN/creatinine ratioOrdered By: Rohit Greene on 10-03-2024 Urea nitrogen/Creatinine [Mass ratio] 12.1 mg/mg 10-20 [facility] Basophil percentageOrdered B y: Rohit Greene on 10-03-2024 Basophils/100 WBC (Bld) 0.4 % 0-1 [facility] Bilirubin, totalOrdered By: Rohit Greene on 10-03-2024 Bilirubin [Mass/Vol] 0.85 mg/dL 0.00-1.30 [facility] Carbon dioxide, total [Moles /volume] in Central venous bloodOrdered By: Rohit Greene on 10-03-2024 CO2 [Moles/Vol] 19.3 mmol/L Low 21.0-32.0 [facility] Chloride assayOrdered By: yasmin Greene on 10-03-2024 Chloride [Moles/Vol] 105 mmol/L 98-108 [facility] Eosinophil percentageOrdered By: Rohit Greene on 10-03-2024 Eosinophils/100 WBC (Bld) 1.4 % 0-5 [facility] Erythrocyte distribution wid th ratioOrdered By: Rohit Greene on 10-03-2024 Erythrocyte distribution width (RBC) [Ratio] 14.1 % 11.6-14.6 [facility] Erythrocyte distribution wid th standard deviationOrdered By: Rohit Greene on 10-03-2024 Erythrocyte distribution width (RBC) [Ratio] 50.0 fl High 35.1-43.9 [facility] Glomerular filtration rate ( GFR) estimation/1.73 sq m using serum, plasma, or whole bOrdered By: Rohit Greene on 10-03-2024 GFR/1.73 sq M.predicted among non-blacks MDRD (S/P/Bld) [Vol rate/Area] 63 mL/min/{1.73_m2} >60 [facility] Comment on above: mL/min/1.73m2 CKD-EP I Creatinine Equation (2020) Hematocrit Auto (Bld) [Volum e fraction]Ordered By: Rohit Greene on 10-03-2024 Hematocrit (Bld) [Volume fraction] 40.3 % 40-54 [facility] Hemoglobin measurementOrdere d By: Rohit Greene on 10-03-2024 Hemoglobin (Bld) [Mass/Vol] 14.5 g/dL 13.0-16.5 [facility] Immature granulocytes/100 WB C Auto (Bld)Ordered By: Rohit Greene on 10-03-2024 Immature granulocytes/100 WBC (Bld) 0.400 % 0.0-0.9 [facility] Comment on above: IG% - Immature Granu locytes (promyelocytes, myelocytes and metamyelocytes) > 1% indicates that a LEFT SHIFT is Present. Laboratory - Chemistry and C hemistry - challengeOrdered By: Rohit Greene on 10-03-2024 AST [Catalytic activity/Vol] 25 U/L <38 [facility] MCV (mean corpuscular volume ) determinationOrdered By: Rohit Greene on 10-03-2024 MCV (RBC) [Entitic vol] 96.9 fL High 80-94 [facility] Mean corpuscular hemoglobin (MCH) determinationOrdered By: Rohit Greene on 10-03-2024 MCH (RBC) [Entitic mass] 34.9 pg High 27.0-32.0 [facility] Mean corpuscular hemoglobin concentration (MCHC) determinationOrdered By: Rohit Greene on 10-03-2024 MCHC (RBC) [Mass/Vol] 36.0 g/dL 32-36 [facility] Mean platelet volume determi nationOrdered By: Rohit Greene on 10-03-2024 Platelet mean volume (Bld) [Entitic vol] 9.9 fL 6.2-12.0 [facility] Monocyte percentageOrdered B y: Rohit Greene on 10-03-2024 Monocytes/100 WBC (Bld) 7.4 % 0-10 [facility] Neutrophil percentageOrdered By: Rohit Greene on 10-03-2024 Neutrophils/100 WBC (Bld) 78.0 % High 47-70 [facility] Nucleated red blood cell per centageOrdered By: Rohit Greene on 10-03-2024 Nucleated RBC/100 WBC (Bld) [Ratio] 0 % 0-5 [facility] Platelet countOrdered By: Anne Greene on 10-03-2024 Platelets (Bld) [#/Vol] 189 10*3/uL 150-450 [facility] Potassium measurement (mass/ volume)Ordered By: Rohit Greene on 10-03-2024 Potassium (Unsp spec) [Mass/Vol] 3.5 mmol/L 3.3-5.1 [facility] RBC Auto (Bld) [#/Vol]Ordere d By: Rohit Greene on 10-03-2024 RBC (Bld) [#/Vol] 4.16 10*6/uL Low 4.6-6.2 [facility] Serum creatinine measurement (mass/volume)Ordered By: Rohit Greene on 10-03-2024 Creatinine [Mass/Vol] 1.26 mg/dL High 0.70-1.20 [facility] Serum globulin measurementOr dered By: Rohit Greene on 10-03-2024 Globulin (S) [Mass/Vol] 2.8 g/dL 2.2-4.2 [facility] Serum glucose measurement (m ass/volume)Ordered By: Rohit Greene on 10-03-2024 Glucose [Mass/Vol] 74 mg/dL 70-99 [facility] Serum or plasma alanine de la cruz otransferase (ALT) measurementOrdered By: Roiht Greene on 10-03-2024 ALT [Catalytic activity/Vol] 16 U/L <47 [facility] Serum or plasma albumin shandra urement (mass/volume)Ordered By: Rohit Greene on 10-03-2024 Albumin [Mass/Vol] 4.4 g/dL 3.4-4.8 [facility] Serum or plasma albumin/glob ulin mass ratioOrdered By: Rohit Greene on 10-03-2024 Albumin/Globulin [Mass ratio] 1.5 {ratio} 0.9-2.4 [facility] Serum or plasma alkaline alessia sphatase measurementOrdered By: Rohit Greene on 10-03-2024 ALP [Catalytic activity/Vol] 95 U/L 40-129 [facility] Serum or plasma calcium shandra urement (mass/volume)Ordered By: Rohit Greene on 10-03-2024 Calcium [Mass/Vol] 9.0 mg/dL 7.6-11.0 [facility] Serum or plasma urea nitroge n measurement (mass/volume)Ordered By: Rohit Greene on 10-03-2024 Urea nitrogen [Mass/Vol] 15 mg/dL 4-19 [facility] Sodium levelOrdered By: Ariel Greene on 10-03-2024 Sodium [Moles/Vol] 139 mmol/L 133-145 [facility] Total proteinOrdered By: Deb bond Ramona on 10-03-2024 Protein [Mass/Vol] 7.2 g/dL 5.9-8.4 [facility] White blood cell (WBC) count Ordered By: Rohit Ramona on 10-03-2024 WBC (Bld) [#/Vol] 9.0 10*3/uL 4.4-11.0 [facility] 36on 08-14-2023 36 We have been unable to reach your patient to schedule their testing. Test Name: CT Chest 1st Attempt: 08/12/2023 2nd Attempt: 08/14/2023 Normal [facility] Absolute lymphocyte countOrd ered By: Gabbie Paris on 04-30-2023 Lymphocytes Auto (Unsp spec) [#/Vol] 1.65 10*3/uL 0.83-4.51 [facility] Basophil percentageOrdered B y: Gabbie Paris on 04-30-2023 Basophils/100 WBC (Bld) 0.7 % 0-1 [facility] Chloride [Moles/Vol] 107 mmol/L 98-107 [facility] Eosinophils/100 WBC (Bld) 4.4 % 0-5 [facility] Glucose [Mass/Vol] 109 mg/dL 74-106 [facility] Comment on above: Fasting Glucose resu lt from 100 to 125 mg/dL suggests IMPAIRED HOMEOSTASIS per A.D.A. criteria. Neutrophils (Bld) [#/Vol] 4.7 10*3/uL 2.0-7.7 [facility] Neutrophils/100 WBC (Bld) 61.7 % 47-70 [facility] Potassium [Moles/Vol] 3.9 mmol/L 3.5-5.1 [facility] Sodium [Moles/Vol] 140 mmol/L 136-145 [facility] WBC (Bld) [#/Vol] 7.5 10*3/uL 4.4-11.0 [facility] Blood erythrocytes count (nu mber/volume)Ordered By: Gabbie Paris on 04-30-2023 RBC (Bld) [#/Vol] 4.10 10*6/uL 4.6-6.2 [facility] Blood hemoglobin measurement (mass/volume)Ordered By: Gabbie Paris on 04-30-2023 Hemoglobin (Bld) [Mass/Vol] 12.6 g/dL 13.0-16.5 [facility] Blood lymphocytes/100 leukoc ytesOrdered By: Gabbie Paris on 04-30-2023 Lymphocytes/100 WBC (Bld) 21.9 % 19-41 [facility] Blood monocytes/100 leukocyt esOrdered By: Gabbie Paris on 04-30-2023 Monocytes/100 WBC (Bld) 11.0 % 0-10 [facility] Blood platelet mean volumeOr dered By: Gabbie Paris on 04-30-2023 Platelet mean volume (Bld) [Entitic vol] 9.2 fL 6.2-12.0 [facility] Determination of erythrocyte mean corpuscular volume (MCV)Ordered By: Gabbie Paris on 04-30-2023 MCV (RBC) [Entitic vol] 92.7 fL 80-94 [facility] Hematocrit Auto (Bld) [Volum e fraction]Ordered By: Gabbie Paris on 04-30-2023 Hematocrit (Bld) [Volume fraction] 38.0 % 40-54 [facility] Laboratory - Chemistry and C hemistry - challengeOrdered By: Gabbie Paris on 04-30-2023 CO2 [Moles/Vol] 28.0 mmol/L 21.0-32.0 [facility] Urea nitrogen/Creatinine [Mass ratio] 12.9 mg/mg 10-20 [facility] Laboratory - Hematology and Cell countsOrdered By: Gabbie Paris on 04-30-2023 Erythrocyte distribution width (RBC) [Entitic vol] 45.1 fL 35.1-43.9 [facility] Erythrocyte distribution width (RBC) [Ratio] 13.3 % 11.6-14.6 [facility] Immature granulocytes/100 WBC (Bld) 0.300 % 0.0-0.9 [facility] Comment on above: IG% - Immature Granu locytes (promyelocytes, myelocytes and metamyelocytes) > 1% indicates that a LEFT SHIFT is Present. MCH (RBC) [Entitic mass] 30.7 pg 27.0-32.0 [facility] Nucleated RBC/100 WBC (Bld) [Ratio] 0 % 0-5 [facility] MCHC Auto (RBC) [Mass/Vol]Or dered By: Gabbie Paris on 04-30-2023 MCHC (RBC) [Mass/Vol] 33.2 g/dL 32-36 [facility] No Panel InformationOrdered By: Gabbie Paris on 04-30-2023 Estimated GFR (MDRD) Amer 75 mL/min >60 [facility] Comment on above: GFR Calc Estimated GFR (MDRD) Non-Af Amer 62 mL/min >60 [facility] Comment on above: Non- GFR Calc Thyroid Stimulating Hormone (TSH) 3.84 uIU/mL 0.358-3.74 [facility] Platelets bldOrdered By: Hamilton Paris on 04-30-2023 Platelets (Bld) [#/Vol] 241 10*3/uL 150-450 [facility] Serum or plasma calcium shandra urement (mass/volume)Ordered By: Gabbie Paris on 04-30-2023 Calcium [Mass/Vol] 9.0 mg/dL 8.5-10.1 [facility] Serum or plasma creatinine m easurement (mass/volume)Ordered By: Gabbie Paris on 04-30-2023 Creatinine [Mass/Vol] 1.24 mg/dL 0.70-1.30 [facility] Comment on above: The validity of the calculated GFR & GFRAA in patients over 70 years has not been determined. Clinical correlation is essential. Serum or plasma urea nitroge n measurement (mass/volume)Ordered By: Gabbie Paris on 04-30-2023 Urea nitrogen [Mass/Vol] 16 mg/dL 7-18 [facility] Thin prep Papanicolaou smear with manual screeningOrdered By: Gabbie Paris on 04-30-2023 Thin prep Papanicolaou smear with manual screening 5 5-15 [facility] Progress Noteon 04-23-2023 Progress Note [facility]: [facility] [address] [facility] [address] Dept: [phone] Dept Loc: [phone] Visit type: Established patient - Virtual Reason for Visit: Post-op Surgery/Procedure: 03/25/23: CABG x4, MAZE, LAAL with atriclip, and LLE EVH with Villarreal Assessment/Plan POD#29 EF: normal 03/25/23 Day from Discharge (04/02/23) #21 -Reviewed current meds Continue as ordered ASA, statin, BB -Blurry vision improving - wearing glasses; has scheduled with eye doctor -Surgical Incisions: Per patient healing appropriately, well approximated, no s/s of infection -Physical therapy as outlined in discharge instructions: ok for cardiac rehab, ok to drive -Acute Post-Operative Pain Tx plan: OTC as needed -Wires Only Weight restriction measures 5-8 weeks from date of surgery- 20lbs weight restriction approximate end date: 05/20/23 Disposition: follow up as needed Patient verbalized understanding of plan and stated they would call if any questions or concerns arise. Treatment Team: PCP: Sophie Craft Cardiology: Dr. Gutierrez Patient was seen today via Telehealth by agreement and consent. I used the following Telehealth technology: Audio capability only. Total length of call 11 minutes. The patient was offered and advised video for a more comprehensive evaluation, but the patient declined or was unable to use video. Patient location: Patient Location: Home. This patient encounter is appropriate and reasonable under the circumstances: transportation issues and patient request . The patient has been advised of the potential risks and limitations of this mode of treatment (including but not limited to the absence of in-person examination) and has agreed to be treated in a remote fashion in spite of them. Any and all of the patient's/patient's family's questions on this issue have been answered and I have made no promises or guarantees to the patient. The patient has also been advised to contact this office for worsening conditions or problems, and seek emergency medical treatment and/or call 911 if the patient deems either necessary. The patient stated that they are currently in the [facility]. If the patient is a minor, permission has been obtained by the parent or guardian for the patient to receive medical care at this visit. Patient identification was verified at the start of the visit: yes Total time spent on this encounter: 14 Subjective HPI: 63 yo male with PMH of CAD & STEMI s/p PCI (RCA in 2019), Afib (on Eliquis), AAA s/p fenestrated EVAR with RTOR for bilateral groin hematomas, hematuria, HTN, HPL, ETOH, current smoker. He presented to [facility] ED on 01/07/23 with worsening SOB x3 weeks. Echo shoed LVEF 50% with wall motion abnormalities. He did develop Afib RVR during hospitalization and reverted back to SR. Had a heart cath on 02/16/23 which showed multivessel CAD involving LM, prox LAD, and RCA. Postoperative course complicated by ETOH withdrawal/ICU delirium. Once he cleared mentation and was medically optimized, he was discharged home 04/02/23. POD#8. He was discharged on short course of PO lasix and also Plavix was not started due to risk of bleeding - patient discharged on ASA/Eliquis - This was discussed with surgeon. Also did not get home care at discharge. 04/06/23: Patient presents for initial postop follow-up. Friend with him at bedside. Overall he is doing well appetite slowly coming back. Vital signs stable pain controlled on OTC only. Incisions healing appropriate with no signs of infection drainage noted. Per patient and friend vision seems to be blurry at times. Patient stated that he had noticed his first surgery he needed readers and vision was blurry and has progressively gotten worse even after our surgery. He does not wear his readers that often. He denies any pain flashing lights specks or other ophthalmic symptoms. Instructed patient to seek medical attention if worsens or new symptoms develop. He needs to schedule appointment with eye doctor and PCP. He verbalized understanding and will follow-up. No other needs at this time patient to call with any issues or concerns we will plan 1 week virtual phone call to follow-up. 04/18/23: Called for post op follow up. Patient doing well. Blurry vision is improving. He has an eye doctors appointment and has been wearing his glasses. Has not got into cardiology yet will help coordinate follow up through our office to theirs. Incisions are healing appropriately with no signs of infection noted or drainage. Discussed weight restrictions. Ok for cardiac rehab -- would defer closer to [place] and ok to drive. No other needs at this time; patient to call with any issues or concerns. Review of Systems Constitutional: Positive for fatigue. Negative for diaphoresis and fever. Eyes: Blurry vision - improving Respiratory: Negative for cough, shortnes (more content not included)... [facility] 36on 04-17-2023 36 Called both patient and brother - no answer VM left to call our office [facility] 36on 04-16-2023 36 Left voicemail for pt to call office. Normal [facility] 36on 04-15-2023 36 I left him another voicemail. Normal [facility] 36 Called patient for scheduled virtual visit, no answer. VM left. Attempted both of patients other contacts listed in EPIC. No answer Normal [facility] Progress Noteon 04-15-2023 Progress Note Called patient multiple times see separate telephone encounters Normal [facility] Office Visiton 04-06-2023 Follow-up visit [id number] Regan Coughlin 1960 M Date Provider Department Center 04/06/2023 [id number] HERNANDEZ [facility] [facility] [place] Family History Problem Relation Age of Onset No Known Problems Mother No Known Problems Father Family Status - Relation Status Age at Mother Father Level of Service:52636 SD POSTOP FOLLOW UP VISIT RELATED TO ORIGINAL PX Reason for Visit and Comments: Post-op [483] Normal [facility] PATINSon 04-06-2023 PATINS Weight restriction measures 1-4 weeks from date of surgery- 10lbs weight restriction: 04/22/23 5-8 weeks from date of surgery- 20lbs weight restriction approximate end date: 05/20/23 Normal [facility] Progress Noteon 04-06-2023 Progress Note [facility]: [facility] [address] [facility] [address] Dept: [phone] Dept Loc: [phone] Visit type: Established patient - in person Reason for Visit: post op follow up Surgery/Procedure: 03/25/23: CABG x4, MAZE, LAAL with atriclip, and LLE EVH with Dr. Villarreal Assessment/Plan POD#12 EF: normal 03/25/23 Day from Discharge (04/02/23) #4 -Reviewed current meds Continue as ordered ASA, statin, BB -Blurry vision - per patient and friend Started before surgery - has been getting worse; tried readers. No complaints while inpatient. Patient to schedule follow up with PCP and Eye doctor. Denies any pain, no flashes, no spots, VSS. -Surgical Incisions: healing appropriately, well approximated, no s/s of infection -Physical therapy as outlined in discharge instructions: Not ready for cardiac rehab, not ready to drive -Acute Post-Operative Pain Tx plan: OTC as needed -Wires Only Weight restriction measures 1-4 weeks from date of surgery- 10lbs weight restriction: 04/22/23 5-8 weeks from date of surgery- 20lbs weight restriction approximate end date: 05/20/23 Disposition: Follow up vision next week. To seek medical attention if worsening or new ophthalmic symptoms. Patient verbalized understanding of plan and stated they would call if any questions or concerns arise. Treatment Team: PCP: Sophie Craft Cardiology: Dr. Matt Baker HPI: 63 yo male with PMH of CAD & STEMI s/p PCI (RCA in 2019), Afib (on Eliquis), AAA s/p fenestrated EVAR with RTOR for bilateral groin hematomas, hematuria, HTN, HPL, ETOH, current smoker. He [facility] 01/[facility]/23 with worsening SOB x3 weeks. Echo shoed LVEF 50% with wall motion abnormalities. He did develop Afib RVR during hospitalization and reverted back to SR. Had a heart cath on 02/16/23 which showed multivessel CAD involving LM, prox LAD, and RCA. Postoperative course complicated by ETOH withdrawal/ICU delirium. Once he cleared mentation and was medically optimized, he was discharged home 04/02/23. POD#8. He was discharged on short course of PO lasix and also Plavix was not started due to risk of bleeding - patient discharged on ASA/Eliquis - This was discussed with surgeon. Also did not get home care at discharge. 04/06/23: Patient presents for initial postop follow-up. Friend with him at bedside. Overall he is doing well appetite slowly coming back. Vital signs stable pain controlled on OTC only. Incisions healing appropriate with no signs of infection drainage noted. Per patient and friend vision seems to be blurry at times. Patient stated that he had noticed his first surgery he needed readers and vision was blurry and has progressively gotten worse even after our surgery. He does not wear his readers that often. He denies any pain flashing lights specks or other ophthalmic symptoms. Instructed patient to seek medical attention if worsens or new symptoms develop. He needs to schedule appointment with eye doctor and PCP. He verbalized understanding and will follow-up. No other needs at this time patient to call with any issues or concerns we will plan 1 week virtual phone call to follow-up. Review of Systems Constitutional: Negative for diaphoresis, fatigue and fever. Eyes: Positive for visual disturbance. Respiratory: Negative for cough, shortness of breath and wheezing. Cardiovascular: Negative for chest pain, palpitations and leg swelling. Gastrointestinal: Negative for abdominal distention, constipation and diarrhea. Skin: Negative for color change, pallor and rash. Objective Vitals: 04/06/23 1437 BP: 134/78 Pulse: 71 Wt Readings from Last 3 Encounters: 04/06/23 145 lb (65.8 kg) 04/02/23 138 lb 3.2 oz (62.7 kg) 03/20/23 150 lb (68 kg) Physical Exam Cardiovascular: Rate and Rhythm: Normal rate and regular rhythm. Heart sounds: Normal heart sounds. Pulmonary: Effort: Pulmonary effort is normal. Breath sounds: Normal breath sounds. Abdominal: General: Bowel sounds are normal. Palpations: Abdomen is soft. There is no mass. Tenderness: There is no abdominal tenderness. Hernia: No hernia is present. Skin: General: Skin is warm and dry. Comments: Surgical Incisions: well approximate; clean dry with no drainage noted. Surrounding skin no redness, warmth, or signs of infection noted. Neurological: Mental Status: He is alert and oriented to person, place, and time. Labs/Imaging/Testing : reviewed EMR, see A&P for pertinent diagnostic results related to office visit Disclaimer INFORMED CONSENT:The nature and purpose of the proposed treatment or procedure have been discussed. The risks and benefits of the proposed treatment or procedures have been reviewed. Alternatives have been reviewed in addition to the risks and benefits of not receiving treatments or undergoing procedures. Pursuant to this discussion, the patient agrees (more content not included)... Normal [facility] BASIC METABOLIC PANELon 12-0 Anion gap [Moles/Vol] 8 mmol/L Normal 3-13 [facility] Comment on above: Performed By: #### L AB15 #### Latin American Studies Professor: SUZIE COOK ([id number]) [facility] ([facility]) [address] [place] [address] Calcium [Mass/Vol] 8.7 mg/dL Normal 8.4-10.4 [facility] Comment on above: Performed By: #### L AB15 #### Latin American Studies Professor: SUZIE COOK ([id number]) [facility] ([facility] [address] [place] [address] Chloride [Moles/Vol] 104 mmol/L Normal 98-107 [facility] Comment on above: Performed By: #### L AB15 #### Latin American Studies Professor: SUZIE COOK ([id number]) [facility] ([facility] [address] [place] [address] CO2 [Moles/Vol] 22 mmol/L Normal 22-30 [facility] Comment on above: Performed By: #### L AB15 #### Latin American Studies Professor: SUZIE COOK ([id number]) [facility] ([facility]) [address] [place] [address] Creatinine [Mass/Vol] 1.07 mg/dL Normal 0.66-1.25 [facility] Comment on above: Performed By: #### L AB15 #### Latin American Studies Professor: SUZIE COOK ([id number]) [facility] ([facility]) [address] [place] [address] [place] GLOMERULAR FILTRATION RATE ML/MIN/1.73 SQ M.PREDICTED 77.5 mL/min/1.73m*2 Normal >60.0 [facility] Comment on above: Result Comment: Calc ulation based on the Chronic Kidney Disease Epidemiology Collaboration (CKD-EPI) equation refit without adjustment for race Performed By: #### L AB15 #### Latin American Studies Professor: SUZIE COOK ([id number]) [facility] ([facility]) [address] [place] [address] [place] Glucose [Mass/Vol] 86 mg/dL Normal 70-100 [facility] Comment on above: Performed By: #### L AB15 #### Latin American Studies Professor: SUZIE COOK ([id number]) [facility] ([facility]) [address] [place] [address] Potassium [Moles/Vol] 4.3 mmol/L Normal 3.5-5.1 [facility] Comment on above: Performed By: #### L AB15 #### Latin American Studies Professor: SUZIE COOK ([id number]) [facility] ([facility]) [address] [place] [address] Sodium [Moles/Vol] 134 mmol/L Low 135-145 [facility] Comment on above: Performed By: #### L AB15 #### Latin American Studies Professor: SUZIE COOK ([id number]) [facility] ([facility]) [address] [place] [address] Urea nitrogen [Mass/Vol] 26 mg/dL High 9-20 [facility] Comment on above: Performed By: #### L AB15 #### Latin American Studies Professor: SUZIE COOK ([id number]) [facility] ([facility]) [address] [place] [address] Basic metabolic 1998 panelon 04-02-2023 Anion gap [Moles/Vol] 8 mmol/L 3 - 13 mmol/L [facility] Calcium [Mass/Vol] 8.7 mg/dL 8.4 - 10. 4 mg/dL [facility] Chloride [Moles/Vol] 104 mmol/L 98 - 10 7 mmol/L [facility] CO2 [Moles/Vol] 22 mmol/L 22 - 30 mmol/L [facility] Creatinine [Mass/Vol] 1.07 mg/dL 0.66 - 1.25 mg/dL [facility] GFR/1.73 sq M.predicted MDRD (S/P/Bld) [Vol rate/Area] 77.5 mL/min/{1.73_m2} - PINF [facility] Glucose [Mass/Vol] 86 mg/dL 70 - 100 mg/dL [facility] Interpretation and review of laboratory results Abnormal [facility] th Potassium [Moles/Vol] 4.3 mmol/L 3.5 - 5.1 mmol/L [facility] Sodium [Moles/Vol] 134 mmol/L Low 135 - 145 mmol/L [facility] Urea nitrogen [Mass/Vol] 26 mg/dL High 9 - 20 mg/dL [facility] CBC (HEMOGRAM)on 04-02-2023 Erythrocyte distribution width (RBC) [Ratio] 14.2 % Normal 11.5-14.5 [facility] Comment on above: Performed By: #### L AB15 #### Latin American Studies Professor: SUZIE COOK ([id number]) [facility]) [address] [place] [address] ERYTHROCYTE MEAN CORPUSCULAR HEMOGLOBIN CONCENTRATION (G/DL) BY AUTOMATED 34.0 % Normal 32.0-36.0 [facility] Comment on above: Performed By: #### L AB15 #### Latin American Studies Professor: SUZIE COOK ([id number]) [facility]) [address] [place] [address] Hematocrit (Bld) [Volume fraction] 33.3 % Low 40.0-52.0 [facility] Comment on above: Performed By: #### L AB15 #### Latin American Studies Professor: SUZIE COOK ([id number]) [facility]) [address] [place] [address] Hemoglobin (Bld) [Mass/Vol] 11.3 g/dL Low 13.0-18.0 [facility] Comment on above: Performed By: #### L AB15 #### Latin American Studies Professor: SUZIE COOK ([id number]) [facility]) [address] [place] [address] MCH (RBC) [Entitic mass] 32.0 pg Normal 26.0-34.0 [facility] Comment on above: Performed By: #### L AB15 #### Latin American Studies Professor: SUZIE COOK ([id number]) [facility]) [address] [place] [address] MCV (RBC) [Entitic vol] 94.2 fL Normal 80.0-98.0 [facility] Comment on above: Performed By: #### L AB15 #### Latin American Studies Professor: SUZIE COOK ([id number]) [facility]) [address] [place] [address] Platelet mean volume (Bld) [Entitic vol] 8.5 fL Normal 7.4-12.4 [facility] Comment on above: Performed By: #### L AB15 #### Latin American Studies Professor: SUZIE [id number]) [facility] ([facility]) [address] [place] [address] Platelets (Bld) [#/Vol] 247 10*3/uL Normal 140-440 [facility] Comment on above: Performed By: #### L AB15 #### Latin American Studies Professor: SUZIE COOK ([id number]) [facility] ([facility]) [address] [place] [address] RBC (Bld) [#/Vol] 3.53 10*6/uL Low 4.40-5.90 [facility] Comment on above: Performed By: #### L AB15 #### Latin American Studies Professor: SUZIE COOK ([id number]) [facility] ([facility]) [address] [place] [address] WBC (Bld) [#/Vol] 9.2 10*3/uL Normal 3.6-10.7 [facility] Comment on above: Performed By: #### L AB15 #### Latin American Studies Professor: SUZIE COOK ([id number]) [facility]) [address] [place] [address] CBC panel Auto (Bld)on 04-02 Erythrocyte distribution width (RBC) [Ratio] 14.2 % 11.5 - 14.5 % [facility] Hematocrit (Bld) [Volume fraction] 33.3 % Low 40.0 - 52.0 % [facility] Hemoglobin (Bld) [Mass/Vol] 11.3 g/dL Low 13.0 - 18.0 g/dL [facility] Interpretation and review of laboratory results Abnormal [facility] MCH (RBC) [Entitic mass] 32.0 pg 26. 0 - 34.0 pg [facility] MCHC (RBC) [Mass/Vol] 34.0 % 32.0 - 36.0 % [facility] MCV (RBC) [Entitic vol] 94.2 fL 80.0 - 98.0 fL [facility] Platelet mean volume (Bld) [Entitic vol] 8.5 fL 7.4 - 12.4 fL [facility] Platelets (Bld) [#/Vol] 247 10*3/uL 140 - 440 10*3/uL [facility] RBC (Bld) [#/Vol] 3.53 10*6/uL Low 4.40 - 5.9 0 10*6/uL [facility] WBC (Bld) [#/Vol] 9.2 10*3/uL 3.6 - 10.7 10*3/uL [facility] Laboratory - Chemistry and C hemistry - challengeon 04-02-2023 Magnesium [Mass/Vol] 2.3 mg/dL 1.6 - 2 .3 mg/dL [facility] MAGNESIUMon 04-02-2023 Magnesium [Mass/Vol] 2.3 mg/dL Normal 1.6-2.3 [facility] Comment on above: Performed By: #### L AB15 #### Latin American Studies Professor: SUZIE COOK ([id number]) [facility] ([facility]) [address] [place] [address] [place] Magnesium [Mass/Vol]on 04-02 Interpretation and review of laboratory results Normal [facility] No Panel Informationon 04-02 [facility] BASIC METABOLIC PANELon 12-0 Anion gap [Moles/Vol] 11 mmol/L Normal 3-13 [facility] Comment on above: Performed By: #### L AB15 #### Latin American Studies Professor: SUZIE COOK ([id number]) [facility] ([facility]) [address] [place] [address] [place] Calcium [Mass/Vol] 9.1 mg/dL Normal 8.4-10.4 [facility] Comment on above: Performed By: #### L AB15 #### Latin American Studies Professor: SUZIE COOK ([id number]) [facility] ([facility]) [address] [place] [address] [place] Chloride [Moles/Vol] 100 mmol/L Normal 98-107 [facility] Comment on above: Performed By: #### L AB15 #### Latin American Studies Professor: SUZIE COOK ([id number]) [facility]) [address] [place] [address] [place] CO2 [Moles/Vol] 25 mmol/L Normal 22-30 [facility] Comment on above: Performed By: #### L AB15 #### Latin American Studies Professor: SUZIE COOK ([id number]) [facility] ([facility]) [address] [place] [address] Creatinine [Mass/Vol] 1.19 mg/dL Normal 0.66-1.25 [facility] Comment on above: Performed By: #### L AB15 #### Latin American Studies Professor: SUZIE COOK ([id number]) [facility]) [address] [place] [address] [place] GLOMERULAR FILTRATION RATE ML/MIN/1.73 SQ M.PREDICTED 68.2 mL/min/1.73m*2 Normal >60.0 [facility] Comment on above: Result Comment: Calc ulation based on the Chronic Kidney Disease Epidemiology Collaboration (CKD-EPI) equation refit without adjustment for race Performed By: #### L AB15 #### Latin American Studies Professor: SUZIE COOK ([id number]) [facility] ([facility]) [address] [place] [address] [place] Glucose [Mass/Vol] 88 mg/dL Normal 70-100 [facility] Comment on above: Performed By: #### L AB15 #### Latin American Studies Professor: SUZIE COOK ([id number]) [facility]) [address] [place] [address] [place] Potassium [Moles/Vol] 3.9 mmol/L Normal 3.5-5.1 [facility] Comment on above: Performed By: #### L AB15 #### Latin American Studies Professor: SUZIE COOK ([id number]) [facility]) [address] [place] [address] [place] Sodium [Moles/Vol] 137 mmol/L Normal 135-145 [facility] Comment on above: Performed By: #### L AB15 #### Latin American Studies Professor: SUZIE COOK ([id number]) [facility]) [address] [place] [address] [place] Urea nitrogen [Mass/Vol] 33 mg/dL High 9-20 [facility] Comment on above: Performed By: #### L AB15 #### Latin American Studies Professor: SUZIE COOK ([id number]) [facility]) [address] [place] [address] Basic metabolic 1998 panelon 04-01-2023 Anion gap [Moles/Vol] 11 mmol/L 3 - 13 mmol/L [facility] Calcium [Mass/Vol] 9.1 mg/dL 8.4 - 10. 4 mg/dL [facility] Chloride [Moles/Vol] 100 mmol/L 98 - 10 7 mmol/L [facility] CO2 [Moles/Vol] 25 mmol/L 22 - 30 mmol/L [facility] Creatinine [Mass/Vol] 1.19 mg/dL 0.66 - 1.25 mg/dL [facility] GFR/1.73 sq M.predicted MDRD (S/P/Bld) [Vol rate/Area] 68.2 mL/min/{1.73_m2} - PINF [facility] Glucose [Mass/Vol] 88 mg/dL 70 - 100 mg/dL [facility] Potassium [Moles/Vol] 3.9 mmol/L 3.5 - 5.1 mmol/L [facility] Sodium [Moles/Vol] 137 mmol/L 135 - 145 mmol/L [facility] Urea nitrogen [Mass/Vol] 33 mg/dL High 9 - 20 mg/dL [facility] CALCIUM, IONIZEDon CALCIUM IONIZED 4.50 mg/dL Normal 4.30-5.20 [facility] Comment on above: Order Comment: Obtai n PRN and check ionized Ca level if serum Ca level less than 8.0 Performed By: #### L AB15 #### Latin American Studies Professor: SUZIE COOK ([id number]) [facility] ([facility]) [address] [place] [address] PH, IONIZED CALCIUM 7.41 Normal 7.31-7.46 [facility] Comment on above: Order Comment: Obtai n PRN and check ionized Ca level if serum Ca level less than 8.0 Performed By: #### L AB15 #### Latin American Studies Professor: SUZIE COOK ([id number]) [facility] ([facility]) [address] [place] [address] CBC (HEMOGRAM)on 04-01-2023 Erythrocyte distribution width (RBC) [Ratio] 14.1 % Normal 11.5-14.5 [facility] Comment on above: Performed By: #### L AB15 #### Latin American Studies Professor: SUZIE COOK ([id number]) [facility]) [address] [place] [address] ERYTHROCYTE MEAN CORPUSCULAR HEMOGLOBIN CONCENTRATION (G/DL) BY AUTOMATED 33.3 % Normal 32.0-36.0 [facility] Comment on above: Performed By: #### L AB15 #### Latin American Studies Professor: SUZIE COOK ([id number]) [facility] ([facility]) [address] [place] [address] Hematocrit (Bld) [Volume fraction] 35.0 % Low 40.0-52.0 [facility] Comment on above: Performed By: #### L AB15 #### Latin American Studies Professor: SUZIE COOK ([id number]) [facility]) [address] [place] [address] Hemoglobin (Bld) [Mass/Vol] 11.6 g/dL Low 13.0-18.0 [facility] Comment on above: Performed By: #### L AB15 #### Latin American Studies Professor: SUZIE COOK ([id number]) [facility]) [address] [place] [address] MCH (RBC) [Entitic mass] 31.3 pg Normal 26.0-34.0 [facility] Comment on above: Performed By: #### L AB15 #### Latin American Studies Professor: SUZIE COOK ([id number]) [facility] ([facility]) [address] [place] [address] MCV (RBC) [Entitic vol] 94.1 fL Normal 80.0-98.0 [facility] Comment on above: Performed By: #### L AB15 #### Latin American Studies Professor: SUZIE COOK ([id number]) [facility]) [address] [place] [address] Platelet mean volume (Bld) [Entitic vol] 8.8 fL Normal 7.4-12.4 [facility] Comment on above: Performed By: #### L AB15 #### Latin American Studies Professor: SUZIE COOK ([id number]) [facility] ([facility]) [address] [place] [address] Platelets (Bld) [#/Vol] 253 10*3/uL Normal 140-440 [facility] Comment on above: Performed By: #### L AB15 #### Latin American Studies Professor: SUZIE COOK ([id number]) [facility] ([facility]) [address] [place] [address] RBC (Bld) [#/Vol] 3.72 10*6/uL Low 4.40-5.90 [facility] Comment on above: Performed By: #### L AB15 #### Latin American Studies Professor: SUZIE COOK ([id number]) [facility] ([facility]) [address] [place] [address] WBC (Bld) [#/Vol] 9.7 10*3/uL Normal 3.6-10.7 [facility] Comment on above: Performed By: #### L AB15 #### Latin American Studies Professor: SUZIE COOK ([id number]) [facility] ([facility]) [address] [place] [address] CBC panel Auto (Bld)on 04-01 Erythrocyte distribution width (RBC) [Ratio] 14.1 % 11.5 - 14.5 % [facility] Hematocrit (Bld) [Volume fraction] 35.0 % Low 40.0 - 52.0 % [facility] Hemoglobin (Bld) [Mass/Vol] 11.6 g/dL Low 13.0 - 18.0 g/dL [facility] Interpretation and review of laboratory results Abnormal [facility] MCH (RBC) [Entitic mass] 31.3 pg 26. 0 - 34.0 pg [facility] MCHC (RBC) [Mass/Vol] 33.3 % 32.0 - 36.0 % [facility] MCV (RBC) [Entitic vol] 94.1 fL 80.0 - 98.0 fL [facility] Platelet mean volume (Bld) [Entitic vol] 8.8 fL 7.4 - 12.4 fL [facility] Platelets (Bld) [#/Vol] 253 10*3/uL 140 - 440 10*3/uL [facility] RBC (Bld) [#/Vol] 3.72 10*6/uL Low 4.40 - 5.9 0 10*6/uL [facility] WBC (Bld) [#/Vol] 9.7 10*3/uL 3.6 - 10.7 10*3/uL [facility] Calcium.ionized [Moles/Vol]o n 04-01-2023 Calcium.ionized (Bld) [Moles/Vol] 4.50 mg/dL 4.30 - 5.20 mg/dL [facility] Interpretation and review of laboratory results Normal [facility] PH, IONIZED CALCIUM 7.41 7.31 - 7.46 [facility] - Chemistry and C hemistry - challengeon 04-01-2023 Magnesium [Mass/Vol] 2.4 mg/dL High 1.6 - 2 .3 mg/dL [facility] MAGNESIUMon 04-01-2023 Magnesium [Mass/Vol] 2.4 mg/dL High 1.6-2.3 [facility] Comment on above: Performed By: #### L AB15 #### Latin American Studies Professor: SUZIE COOK ([id number]) [facility] ([facility]) [address] [place] [address] No Panel Informationon 04-01 Interpretation and review of laboratory results Abnormal [facility] Progress Noteon 04-01-2023 Progress Note OCCUPATIONAL THERAPY [facility] Treatment Note Name/MRN: Regan Coughlin ([id number]) Date of : 1960 Age: 63 y.o. Room/Bed: T1-105/T1-105 A Discharge Recommendation: Home with assist PRN, Home with Home health OT Equipment Needed: Yes Mobility Devices: ADL Assistive Devices ADL Assistive Devices: Shower Chair with back Prior Level of Function ADL Assistance: Independent Ambulation Assistance: Independent Transfer Assistance: Independent Assessment Pt progressing with ambulation/transfers to supv/independent, unable to assess ADLS as pt declined this session. Pt continues to be limited with chest tube/sternal precautions. Discussed DME needs in preparation for home going; shower chair with back recommended for energy conservation/fall prevention. Recommend HHOT and assist PRN at home when discharged. Subjective Upon entry, pt seated in recliner and agreeable to OT services. Pt requested to ambulate in hallway with provider. Pt with flatter affect today and stated he wants to go home. RN approved Pain: RN managing pain. Medical Precautions: No active isolations Proper PPE donned/doffed in accordance with facility standards. Fall Risk: [place] Fall Risk Score: 35 (Medium Risk) Precautions/Restrict ions: Sternal Precautions: No Pushing, No Pulling, No Lifting Greater Than 10 lbs Family/Caregiver Present: none Objective Transfers/Mobility Sit to stand: Supervision Stand to sit: Supervision Sitting balance: Independent Standing balance: Supervision Functional mobility: Supervision, assist with chest tube munoz No device. Device(s) used: none Plan Continue acute OT per plan of care. Safety/Education Safety Safety Devices in place: call light within reach, left in chair, nurse notified, and no alarms engaged upon entry Restraints: No Education Education Given To: patient Education Provided: OT Role, Plan of Care, Home Exercise Program, Precautions, ADL Adaptive Strategies, Transfer Training, Energy Conservation, Equipment, Discharge Recommendations, Benefits of Increasing Activity, and Breathing Techniques Education Method: Verbal and Demonstration Barriers to Learning: None Education Outcome: Verbalized Understanding and Demonstrated Understanding AM-PAC AM-PAC Inpatient Daily Activity Raw Score: 22 ADL Inpatient CMS G-Code Modifier: CJ Goals Patient Stated Goal: To go home Encounter Problems Encounter Problems (Active) Balance Patient will maintain dynamic standing balance for 5-7 minutes with supervision in order to demonstrate decreased risk of falling. (Progressing) Start: 03/30/23 Expected End: 04/27/23 Bathing Patient will utilize adaptive techniques to bathe body with supervision (Progressing) Start: 03/30/23 Expected End: 04/27/23 Safety Patient will recall/demonstrate weight bearing and/or ROM restrictions with all functional mobility in order to promote healing and safety with functional tasks. (Progressing) Start: 03/30/23 Expected End: 04/27/23 Toileting Patient will complete toileting tasks at standard toilet with modified independence (Progressing) Start: 03/30/23 Expected End: 04/27/23 Transfers Patient will complete functional transfer with least restrictive device with modified independence in order to prepare for ambulation. (Progressing) Start: 03/30/23 Expected End: 04/27/23 Therapy Time Individual Co-treatment Time In 0843 Time Out 0910 Minutes 27 Timed Code Treatment Minutes: 27 Minutes (2 act) COMF[facility] Progress Note PHYSICAL THERAPY [facility] Treatment Note Name/MRN: Regan Coughlin ([id number]) Date of : 1960 Age: 63 y.o. Room/Bed: T1-105/T1-105 A Discharge Recommendation: Home with assist PRN Equipment Needed: No Prior Level of Function ADL Assistance: Independent Ambulation Assistance: Independent Transfer Assistance: Independent Patient reports his brother does not work but does have chronic back pain which limits him. Patient is typically indep with all IADLs, ADLs and mobility without a device. Assessment Pt independent with transfers, gait and stairs. No LOB. Compliant with sternal precautions. Rec home with assist at discharge. Subjective Pt sitting at EOB, eager to go home. Agreeable to PT. Pain: Pt denies any current pain. Medical Precautions: No active isolations Proper PPE donned/doffed in accordance with facility standards. Fall Risk: [place] Fall Risk Score: 35 (Medium Risk) Precautions/Restrict ions: Sternal Precautions: No Pushing, No Pulling, No Lifting Greater Than 10 lbs Lines/Drains/Airways : PIV, telemetry, continuous O2, CT x1 Family/Caregiver Present: none Objective Ambulation Ambulation 1 Assistive device(s) used: none Assist level: Independent Distance (ft): 400ft Quality of gait: No gait deviations, No LOB Transfers/Mobility Sit to stand: Independent Stand to sit: Independent X1 from EOB. Compliant with sternal precautions. Device(s) used: none Balance: Dynamic standing with functional reaching and turning direction, no LOB, independent. Stairs Stairs 1 Assistive device(s) used: none Assist level: Independent # of steps: 4 x2 reps Rails: right Additional factors: reciprocal going up, reciprocal going down Plan Continue acute PT per plan of care. Safety/Education Safety Safety Devices in place: call light within reach and left in chair Restraints: No Education Education Given To: patient Education Provided: PT Goals, Gait Training, Home Exercise Program, and Breathing Techniques Education Method: Verbal Barriers to Learning: None Education Outcome: Verbalized Understanding Outcome Measures AM-PAC AM-PAC Inpatient Mobility Raw Score : 24 AM-PAC Inpatient Mobility Raw Score (No Stairs) : 20 JH-HLM JH-HLM Score: Walked 250 ft or more (i.e. several laps on unit) Goals Patient Stated Goal: To go home Encounter Problems Encounter Problems (Active) Cardiac Patient will perform bed mobility with modified independence in order to improve independence and prepare for out of bed mobility. (Not Addressed) Start: 03/26/23 Expected End: 04/09/23 Patient will complete sit to stand transfer with modified independence in order to improve safety and prepare for out of bed mobility. (Completed) Start: 03/26/23 Expected End: 04/09/23 Resolved: 04/01/23 Patient will ambulate 400 feet or ambulate 5 minutes with modified independence with RPE of 14 or lower. (Completed) Start: 03/26/23 Expected End: 04/09/23 Resolved: 04/01/23 Patient will ascend and descend flight of stairs with modified independence and rail for balance only. (Progressing) Start: 03/26/23 Expected End: 04/09/23 Patient will be independent with P&C exercises. (Not Addressed) Start: 03/26/23 Expected End: 04/09/23 Patient will be independent with managing secretions and home walking program. (Not Addressed) Start: 03/26/23 Expected End: 04/09/23 Pain - Adult Therapy Time Individual Co-treatment Time In 0825 Time Out 0834 Minutes 9 Timed Code Treatment Minutes: 9 Minutes (gait) Nils Barker [facility] XR CHEST 1 VIEWon 04-01-2023 XR CHEST 1 VIEW Patient Name: REGAN COUGHLIN : 1960 Exam Date/Time: 04/01/2023 05:16 Procedure: XR CHEST 1 VIEW Ordering Provider: WAHL JENNIFER Reason For Exam: Shortness of breath Clinical History: Shortness of breath Comparison: 03/31/2023 Technique: Single AP radiograph of the chest. IMPRESSION: FINDINGS/IMPRESSION: Unchanged examination of the chest with mild bibasilar atelectasis. Report Dictated on Electronically Signed By: Lorri Espinal DR Electronically Signed Date/Time: 04/01/2023 5:21 AM EST Normal [facility] XR Chest Single viewon 04-[address] [facility] Radiology Study observation (narrative) [facility] BASIC METABOLIC PANELon Anion gap [Moles/Vol] 8 mmol/L Normal 3-13 [facility] Comment on above: Performed By: #### L AB15 #### Latin American Studies Professor: SUZIE COOK ([id number]) [facility] ([facility]) [address] [place] [address] Calcium [Mass/Vol] 8.9 mg/dL Normal 8.4-10.4 [facility] Comment on above: Performed By: #### L AB15 #### Latin American Studies Professor: SUZIE COOK ([id number]) [facility] ([facility]) [address] [place] [address] Chloride [Moles/Vol] 100 mmol/L Normal 98-107 [facility] Comment on above: Performed By: #### L AB15 #### Latin American Studies Professor: SUZIE COOK ([id number]) [facility] ([facility]) [address] [place] [address] CO2 [Moles/Vol] 24 mmol/L Normal 22-30 [facility] Comment on above: Performed By: #### L AB15 #### Latin American Studies Professor: SUZIE COOK ([id number]) [facility] ([facility]) [address] [place] [address] Creatinine [Mass/Vol] 1.14 mg/dL Normal 0.66-1.25 [facility] Comment on above: Performed By: #### L AB15 #### Latin American Studies Professor: SUZIE COOK ([id number]) [facility]) [address] [place] [address] [place] GLOMERULAR FILTRATION RATE ML/MIN/1.73 SQ M.PREDICTED 71.8 mL/min/1.73m*2 Normal >60.0 [facility] Comment on above: Result Comment: Calc ulation based on the Chronic Kidney Disease Epidemiology Collaboration (CKD-EPI) equation refit without adjustment for race Performed By: #### L AB15 #### Latin American Studies Professor: SUZIE COOK ([id number]) [facility] ([facility]) [address] [place] [address] Glucose [Mass/Vol] 100 mg/dL Normal 70-100 [facility] Comment on above: Performed By: #### L AB15 #### Latin American Studies Professor: SUZIE COOK ([id number]) [facility] ([facility]) [address] [place] [address] Potassium [Moles/Vol] 3.4 mmol/L Low 3.5-5.1 [facility] Comment on above: Performed By: #### L AB15 #### Latin American Studies Professor: SUZIE COOK ([id number]) [facility] ([facility]) [address] [place] [address] Sodium [Moles/Vol] 132 mmol/L Low 135-145 [facility] Comment on above: Performed By: #### L AB15 #### Latin American Studies Professor: SUZIE COOK ([id number]) [facility] ([facility]) [address] [place] [address] Urea nitrogen [Mass/Vol] 32 mg/dL High 9-20 [facility] Comment on above: Performed By: #### L AB15 #### Latin American Studies Professor: SUZIE COOK ([id number]) [facility] ([facility]) [address] [place] [address] Basic metabolic 1998 panelon 03-31-2023 Anion gap [Moles/Vol] 8 mmol/L 3 - 13 mmol/L [facility] Calcium [Mass/Vol] 8.9 mg/dL 8.4 - 10. 4 mg/dL [facility] Chloride [Moles/Vol] 100 mmol/L 98 - 10 7 mmol/L [facility] CO2 [Moles/Vol] 24 mmol/L 22 - 30 mmol/L [facility] Creatinine [Mass/Vol] 1.14 mg/dL 0.66 - 1.25 mg/dL [facility] GFR/1.73 sq M.predicted MDRD (S/P/Bld) [Vol rate/Area] 71.8 mL/min/{1.73_m2} - PINF [facility] Glucose [Mass/Vol] 100 mg/dL 70 - 100 mg/dL [facility] Interpretation and review of laboratory results Abnormal [facility] Potassium [Moles/Vol] 3.4 mmol/L Low 3.5 - 5.1 mmol/L [facility] Sodium [Moles/Vol] 132 mmol/L Low 135 - 145 mmol/L [facility] Urea nitrogen [Mass/Vol] 32 mg/dL High 9 - 20 mg/dL [facility] CALCIUM, IONIZEDon CALCIUM IONIZED 4.20 mg/dL Low 4.30-5.20 [facility] Comment on above: Order Comment: Obtai n PRN and check ionized Ca level if serum Ca level less than 8.0 Performed By: #### L AB15 #### Latin American Studies Professor: SUZIE COOK ([id number]) [facility] ([address] PH, IONIZED CALCIUM 7.57 High 7.31-7.46 [facility] Comment on above: Order Comment: Obtai n PRN and check ionized Ca level if serum Ca level less than 8.0 Performed By: #### L AB15 #### Latin American Studies Professor: SUZIE COOK ([id number]) [facility] ([facility] [address] [place] [address] CARECOORDon 03-31-20[address] [place] coverage for today. Pt currently without insurance. Pt has been screened by [employer] and pt is currently over income for Medicaid or HCAP. Pt currently receiving income from employer while he is ill. Normal [facility] CBC (HEMOGRAM)on 03-31-2023 Erythrocyte distribution width (RBC) [Ratio] 14.6 % High 11.5-14.5 [facility] Comment on above: Performed By: #### L AB15 #### Latin American Studies Professor: SUZIE COOK ([id number]) [facility] ([facility]) [address] [place] [address] ERYTHROCYTE MEAN CORPUSCULAR HEMOGLOBIN CONCENTRATION (G/DL) BY AUTOMATED 34.3 % Normal 32.0-36.0 [facility] Comment on above: Performed By: #### L AB15 #### Latin American Studies Professor: SUZIE COOK ([id number]) [facility]) [address] [place] [address] Hematocrit (Bld) [Volume fraction] 29.7 % Low 40.0-52.0 [facility] Comment on above: Performed By: #### L AB15 #### Latin American Studies Professor: SUZIE COOK ([id number]) [facility] ([facility]) [address] [place] [address] Hemoglobin (Bld) [Mass/Vol] 10.2 g/dL Low 13.0-18.0 [facility] Comment on above: Performed By: #### L AB15 #### Latin American Studies Professor: SUZIE COOK ([id number]) [facility] ([facility]) [address] [place] [address] MCH (RBC) [Entitic mass] 32.1 pg Normal 26.0-34.0 [facility] Comment on above: Performed By: #### L AB15 #### Latin American Studies Professor: SUZIE COOK ([id number]) [facility]) [address] [place] [address] MCV (RBC) [Entitic vol] 93.6 fL Normal 80.0-98.0 [facility] Comment on above: Performed By: #### L AB15 #### Latin American Studies Professor: SUZIE COOK ([id number]) [facility]) [address] [place] [address] Platelet mean volume (Bld) [Entitic vol] 8.4 fL Normal 7.4-12.4 [facility] Comment on above: Performed By: #### L AB15 #### Latin American Studies Professor: SUZIE COOK ([id number]) [facility]) [address] [place] [address] Platelets (Bld) [#/Vol] 191 10*3/uL Normal 140-440 [facility] Comment on above: Performed By: #### L AB15 #### Latin American Studies Professor: SUZIE COOK ([id number]) [facility] ([facility]) [address] [place] [address] RBC (Bld) [#/Vol] 3.17 10*6/uL Low 4.40-5.90 [facility] Comment on above: Performed By: #### L AB15 #### Latin American Studies Professor: SUZIE COOK ([id number]) [facility] ([facility]) [address] [place] [address] WBC (Bld) [#/Vol] 8.7 10*3/uL Normal 3.6-10.7 [facility] Comment on above: Performed By: #### L AB15 #### Latin American Studies Professor: SUZIE COOK ([id number]) [facility] ([facility]) [address] [place] [address] CBC panel Auto (Bld)Ordered By: Marisabel Mckee on 03-31-2023 Erythrocyte distribution width (RBC) [Ratio] 14.6 % High 11.5 - 14.5 % [facility] Hematocrit (Bld) [Volume fraction] 29.7 % Low 40.0 - 52.0 % [facility] Hemoglobin (Bld) [Mass/Vol] 10.2 g/dL Low 13.0 - 18.0 g/dL [facility] Interpretation and review of laboratory results Abnormal [facility] MCH (RBC) [Entitic mass] 32.1 pg 26. 0 - 34.0 pg [facility] MCHC (RBC) [Mass/Vol] 34.3 % 32.0 - 36.0 % [facility] MCV (RBC) [Entitic vol] 93.6 fL 80.0 - 98.0 fL [facility] Platelet mean volume (Bld) [Entitic vol] 8.4 fL 7.4 - 12.4 fL [facility] Platelets (Bld) [#/Vol] 191 10*3/uL 140 - 440 10*3/uL [facility] RBC (Bld) [#/Vol] 3.17 10*6/uL Low 4.40 - 5.9 0 10*6/uL [facility] WBC (Bld) [#/Vol] 8.7 10*3/uL 3.6 - 10.7 10*3/uL [facility] Calcium.ionized [Moles/Vol]o n 03-31-2023 Calcium.ionized (Bld) [Moles/Vol] 4.20 mg/dL Low 4.30 - 5.20 mg/dL [facility] Interpretation and review of laboratory results Abnormal [facility] PH, IONIZED CALCIUM 7.57 High 7.31 - 7.46 [facility] ECG 12-LEADon 03-31-2023 ECG 12-LEAD IMPRESSION: Sinus rhythm Left axis deviation Anterolateral infarct, acute ST elevation, consider inferior injury Prolonged QT interval Electronically Signed On 03-31-2023 9:46:03 EST by Cori Funes Normal [facility] IDNon 03-31-2023 IDN Problem: Knowledge Deficit Goal: Patient/family/careg iver demonstrates understanding of disease process, treatment plan, medications, and discharge instructions Outcome: Progressing Problem: Potential for Compromised Skin Integrity Goal: Skin Integrity is Maintained or Improved Outcome: Progressing Problem: Potential for Compromised Skin Integrity Goal: Nutritional status is improving Outcome: Progressing Problem: Pain - Adult Goal: Verbalizes/displays adequate comfort level or baseline comfort level Outcome: Progressing Problem: Safety - Adult Goal: Free from fall injury Outcome: Progressing Problem: Discharge Planning Goal: Discharge to home or other facility with appropriate resources Outcome: Progressing Problem: Problem Interventions Goal: Assess Nutritional Intake Outcome: Progressing Normal [facility] Laboratory - Chemistry and C hemistry - challengeon 03-31-2023 Magnesium [Mass/Vol] 2.3 mg/dL 1.6 - 2 .3 mg/dL [facility] MAGNESIUMon 03-31-2023 Magnesium [Mass/Vol] 2.3 mg/dL Normal 1.6-2.3 [facility] Comment on above: Performed By: #### L AB15 #### Latin American Studies Professor: SUZIE COOK ([id number]) [facility] ([facility]) [address] [place] [address] Magnesium [Mass/Vol]on 03-31 Interpretation and review of laboratory results Normal [facility] No Panel InformationOrdered By: Cori Funes on 03-31-2023 P [place] 41 degrees [facility] Work Phone: SD Interval 143 ms [employer] Work Phone: QRS [place] -42 degrees [employer] Work Phone: QRSD Interval 104 ms [employer] Work Phone: QT Interval 509 ms [employer] Work Phone: QTC Interval 581 ms [employer] Work Phone: T Wave [place] 53 degrees [employer] Work Phone: [employer] Work Phone: [phone] No Panel Informationon 03-31 CV EPIPHANY [employer] Progress Noteon 03-31-2023 Progress Note Nutrition Assessment Type and Reason for Visit: Reassess Nutrition Recommendations/Plan : Pt meets ASPEN/AND criteria for malnutrition as indicated below Per MNT protocol, will discontinue carb limit (no hx of DM, poor intake, not requiring insulin) Per MNT protocol, will modify ONS to Ensure Plus BID per pt preference Encourage overall p.o. intake and protein intake In-depth education not appropriate due to poor nutrition status and limited p.o. intake. Pt has been provided with heart healthy handout and [facility] RD phone number RD will monitor overall nutrition status and will follow weekly Malnutrition Assessment: Malnutrition Status: Severe malnutrition Context: Acute Illness (acute on chronic) Findings of the 6 clinical characteristics of malnutrition: Energy Intake: 50% or less of estimated energy requirements for 5 or more days Weight Loss: Greater than 7.5% over 3 months Body Fat Loss: Moderate body fat loss Orbital, Fat Overlying Ribs, Buccal region Muscle Mass Loss: Moderate muscle mass loss Temples (temporalis), Clavicles (pectoralis & deltoids) Fluid Accumulation: No significant fluid accumulation Extremities (? 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 He presented to [facility] ED on 01/07/23 with worsening SOB x3 weeks. Echo shoed LVEF 50% with wall motion abnormalities. He did develop Afib RVR during hospitalization and reverted back to SR. Had a heart cath on 02/16/23 which showed multivessel CAD involving LM, prox LAD, and RCA. He presented 03/25/23 for planned surgery and underwent CABG x4, POD #5. He did develop Afib RVR during hospitalization and reverted back to SR. Right thoracentesis yesterday with 350 mL removed. Pt is resting in chair, leaning over side of chair, reports poor appetite, not really eating at all, states he has only consumed peanut butter packet today. When asked about his weight loss, he states, I'll probably weight 110# when I leave here. This visit, pt also reports poor p.o. intake prior to admission as well, states he might eat 3 steaks per week and that is all. He is observed with progressive muscle wasting and subcutaneous fat losses. He is not consuming Ensure Surgery- does not like the taste. He is agreeable to trying chocolate Ensure Plus. RD also encouraged increased overall p.o. intake and protein intake Estimated Daily Nutrient Needs: Energy Requirements Based On: Kcal/kg Weight Used for Energy Requirements: Vaughn (25-30 kcal/kg) Weight for Energy Calculation (kg): 64.4 kg Total Energy Requirements (kcals/day): 2179-0778 Weight Used for Protein Requirements: Vaughn (1.2-1.5 g/kg) Weight in Kg Used for Protein Requirements: 64.4 kg Estimated Total Protein (g/day): 77-97 Estimated Daily Total Fluid (ml/day): per MD Nutrition Related Findings: Nutrition History: Independent of feeding. Lives with: Extended family members (brother) Teeth: Missing teeth GI symptoms: Decreased appetite and Anorexia. Sai Scale Score: 20 .Wound Type: Surgical Incision Net IO Since Admission: -6,696.49 mL [03/31/23 1434] Edema: RUE Edema: None, LUE Edema: None, RLE Edema: (none), LLE Edema: (none) Bowel Sounds (All Quadrants): Active Abdomen Inspection: Soft, Nondistended Last BM Date: 03/31/23 Labs and meds reviewed: acetaminophen, 1,000 mg, Oral, q8h amiodarone, 400 mg, Oral, BID amLODIPine, 5 mg, Oral, Daily aspirin, 81 mg, Oral, Daily atorvastatin, 80 mg, Oral, Nightly folic acid, 1 mg, Oral, Daily furosemide, 40 mg, IntraVENous, Daily heparin, 5,000 Units, SubCUTAneous, BID hydrALAZINE, 50 mg, Oral, TID hydrocortisone, , Topical, BID influenza, 0.5 mL, IntraMUSCular, Once ipratropium-albutero l, 3 mL, Nebulization, BID Lidocaine, 1 patch, Topical, Daily metoprolol tartrate, 25 mg, Oral, BID mirtazapine, 15 mg, Oral, Nightly pantoprazole, 40 mg, Oral, qAM AC polyethylene glycol (PEG) 3350, 17 g, Oral, Daily potassium chloride CR, 40 mEq, Oral, Daily senna-docusate sodium, 2 tablet, Oral, Nightly sodium chloride 0.9%, 10 mL, IntraVENous, 2 times per day thiamine, 100 mg, Oral, Daily BMP: Recent Labs 03/29/23 0011 03/30/23 0350 03/31/23 0517 NA 138 135 132* K 3.1* 3.5 3.4* CL 103 102 100 CO2 26 26 24 BUN 37* 31* 32* CREATININE 1.08 1.05 1.14 GLUCOSE 102* 85 100 CALCIUM 8.4 8.4 8.9 MG 2.2 2.2 2.3 Lab Results Component Value Date HGBA1C 4.2 03/20/2023 Current Nutrition Therapies: Adult diet Regular; 5 carb choices (75 gm/meal) Current Oral Intake Average Meal Intake: 1-25% Average Supplements Intake: 0% Anthropometric Measures: Height: 167.6 cm (5' 6) Current Body Weight: 62 kg (136 lb 9.6 oz) (03/31) Admission Body Weight: 68 kg (150 lb) (03/25) Usual (more content not included)... Normal [facility] Progress Note PHYSICAL THERAPY [facility] Treatment Note Name/MRN: Regan Coughlin ([id number]) Date of : 1960 Age: 63 y.o. Room/Bed: T1-105/T1-105 A Discharge Recommendation: Home with Assist PRN and Outpatient PT (cardiac rehab) Equipment Needed: TBD Prior Level of Function ADL Assistance: Independent Ambulation Assistance: Independent Transfer Assistance: Independent Patient reports his brother does not work but does have chronic back pain which limits him. Patient is typically indep with all IADLs, ADLs and mobility without a device. Assessment Pt SBA for transfer, gait, balance. Occasional cues for sternal precautions. Tolerated P&C exercises well. No LOB. Rec home with assist upon discharge. Subjective Pt reclined in chair, agreeable to PT. Pain: Pt denies any current pain. Medical Precautions: No active isolations Proper PPE donned/doffed in accordance with facility standards. Fall Risk: [place] Fall Risk Score: 45 (High Risk) Precautions/Restrict ions: Sternal Precautions: No Pushing, No Pulling, No Lifting Greater Than 10 lbs Lines/Drains/Airways : PIV, telemetry, CT x1, external pacer Family/Caregiver Present: none Objective Ambulation Ambulation 1 Assistive device(s) used: none Assist level: SBA Distance (ft): 800ft Quality of gait: No LOB, slow drew Transfers/Mobility Sit to stand: SBA Stand to sit: SBA X1 from chair, occasional cues for sternal precautions. Device(s) used: none Exercises Exercises Upper Extremity: P&C ex #1-9 all x 10 reps each Other exercises Other exercises?: Yes Other exercises 1: I.S. x 10 reps, 1,000mL Balance: standing with functional reaching, no LOB, SBA for balance. Plan Continue acute PT per plan of care. Safety/Education Safety Safety Devices in place: call light within reach and left in chair Restraints: No Education Education Given To: patient Education Provided: Home Exercise Program, Precautions, Discharge Recommendations, and Breathing Techniques Education Method: Verbal Barriers to Learning: None Education Outcome: Verbalized Understanding Outcome Measures AM-PAC AM-PAC Inpatient Mobility Raw Score (No Stairs) : 20 JH-HLM -M Score: Walked 250 ft or more (i.e. several laps on unit) Goals Patient Stated Goal: To go home Encounter Problems Encounter Problems (Active) Cardiac Patient will perform bed mobility with modified independence in order to improve independence and prepare for out of bed mobility. (Not Addressed) Start: 03/26/23 Expected End: 04/09/23 Patient will complete sit to stand transfer with modified independence in order to improve safety and prepare for out of bed mobility. (Progressing) Start: 03/26/23 Expected End: 04/09/23 Patient will ambulate 400 feet or ambulate 5 minutes with modified independence with RPE of 14 or lower. (Progressing) Start: 03/26/23 Expected End: 04/09/23 Patient will ascend and descend flight of stairs with modified independence and rail for balance only. (Not Addressed) Start: 03/26/23 Expected End: 04/09/23 Patient will be independent with P&C exercises. (Progressing) Start: 03/26/23 Expected End: 04/09/23 Patient will be independent with managing secretions and home walking program. (Progressing) Start: 03/26/23 Expected End: 04/09/23 Pain - Adult Therapy Time Individual Co-treatment Time In 1105 Time Out 1128 Minutes 23 Timed Code Treatment Minutes: 23 Minutes (gait; tp) Nils Barker, [facility] Progress Note OCCUPATIONAL THERAPY [facility] Treatment Note Name/MRN: Regan Coughlin ([id number]) Date of : 1960 Age: 63 y.o. Room/Bed: T1-105/T1-105 A Discharge Recommendation: Inpatient Rehab Equipment Needed: TBD at next level of care Prior Level of Function ADL Assistance: Independent Ambulation Assistance: Independent Transfer Assistance: Independent Assessment Pt required Max assist for LB dressing and toileting, Min A for ambulation/transfers . Pt is below baseline, able to tolerate 3 hours per day of intensive therapy. OT recommends IPR at discharge. Subjective Upon arrival, pt in recliner with RN present; both agreeable to OT services. Pain: RN managing pain. Medical Precautions: No active isolations Proper PPE donned/doffed in accordance with facility standards. Fall Risk: [place] Fall Risk Score: 35 (Medium Risk) Precautions/Restrict ions: Sternal Precautions: No Pushing, No Pulling, No Lifting Greater Than 10 lbs Lines/Drains/Airways : PIV, telemetry, RA Family/Caregiver Present: none Objective ADLs Grooming: SBA, statically standing at sink to complete facial and hand hygiene, oral care, grooming of hair. Pt used sink for stabilizing self. UE Bathing: SBA, statically standing at sink as per above LE Dressing: Max Assist, doff/don bilateral socks. Toileting: Max Assist, assist w/posterior hygiene and pulling pants up in back. Extra time required. Adaptive Equipment: educated on bsc as riser,fww use Decreased functional activity tolerance; quick fatigue. Transfers/Mobility Sit to stand: Min Assist, elevation/balance; fww used Stand to sit: Min Assist, Controlled descent Toilet: Min Assist, elevation/balance; cues for sternal precautions Standing balance: SBA, Contact Guard Functional mobility: Min Assist, assist w/fww mgmt; chest tube and IV pole Cues for sternal precautions with each transfer. Device(s) used: front wheeled walker and hospital bed Plan Continue acute OT per plan of care. Safety/Education Safety Safety Devices in place: All fall risk precautions in place, call light within reach, left in chair, gait belt, patient at risk for falls, nurse notified, and no alarms engaged upon entry Restraints: No Education Education Given To: patient Education Provided: OT Role, Plan of Care, Precautions, ADL Adaptive Strategies, Transfer Training, Energy Conservation, Equipment, Fall Prevention Education, Discharge Recommendations, Benefits of Increasing Activity, and Breathing Techniques Education Method: Verbal, Demonstration, Teach Back, and Pt required assist to recall sternal precautions Barriers to Learning: None Education Outcome: Verbalized Understanding and Continued Education Needed AM-PAC AM-PAC Inpatient Daily Activity Raw Score: 19 ADL Inpatient CMS G-Code Modifier: CK Goals Patient Stated Goal: To get stronger Encounter Problems Encounter Problems (Active) Balance Patient will maintain dynamic standing balance for 5-7 minutes with supervision in order to demonstrate decreased risk of falling. (Progressing) Start: 03/30/23 Expected End: 04/27/23 Bathing Patient will utilize adaptive techniques to bathe body with supervision (Not Addressed) Start: 03/30/23 Expected End: 04/27/23 Safety Patient will recall/demonstrate weight bearing and/or ROM restrictions with all functional mobility in order to promote healing and safety with functional tasks. (Progressing) Start: 03/30/23 Expected End: 04/27/23 Toileting Patient will complete toileting tasks at standard toilet with modified independence (Progressing) Start: 03/30/23 Expected End: 04/27/23 Transfers Patient will complete functional transfer with least restrictive device with modified independence in order to prepare for ambulation. (Progressing) Start: 03/30/23 Expected End: 04/27/23 Therapy Time Individual Co-treatment Time In 0830 Time Out 0910 Minutes 40 Timed Code Treatment Minutes: 40 Minutes (2 self 1 act) COMFORT Abad Normal [facility] Vital signsOrdered By: Cori Funes on 03-31-2023 Heart rate 78 /min bpm [facility] Work Phone: XR CHEST 1 VIEWon 03-31-2023 XR CHEST 1 VIEW [facility] 1960 [id number] Exam Date/Time: 03/31/2023 05:14 Procedure: XR CHEST 1 VIEW Ordering Provider: WAHL JENNIFER Reason For Exam: Shortness of breath Clinical History: Shortness of breath Comparison: 03/30/2023 Technique: Single AP radiograph of the chest. Findings: Interval removal of right IJ sheath. Improvement of pulmonary vascular congestion and hazy bibasilar opacities. Otherwise unchanged examination of the chest. IMPRESSION: Improvement of pulmonary vascular congestion and bilateral hazy effusion/atelectasis . Report Dictated on Electronically Signed By: Lorri Espinal DR Electronically Signed Date/Time: 03/31/2023 6:15 AM EST Normal [facility] XR Chest Single viewon 03-31 [facility] Radiology Study observation (narrative) [facility] BASIC METABOLIC PANELon Anion gap [Moles/Vol] 7 mmol/L Normal 3-13 [facility] Comment on above: Performed By: #### L AB15 #### Latin American Studies Professor: SUZIE COOK ([id number]) [facility] ([facility]) [address] [place] [address] Calcium [Mass/Vol] 8.4 mg/dL Normal 8.4-10.4 [facility] Comment on above: Performed By: #### L AB15 #### Latin American Studies Professor: SUZIE COOK ([id number]) [facility] ([facility]) [address] [place] [address] Chloride [Moles/Vol] 102 mmol/L Normal 98-107 [facility] Comment on above: Performed By: #### L AB15 #### Latin American Studies Professor: SUZIE [id number]) [facility] ([facility]) [address] [place] [address] [place] CO2 [Moles/Vol] 26 mmol/L Normal 22-30 [facility] Comment on above: Performed By: #### L AB15 #### Latin American Studies Professor: SUZIE COOK ([id number]) [facility]) [address] [place] [address] Creatinine [Mass/Vol] 1.05 mg/dL Normal 0.66-1.25 [facility] Comment on above: Performed By: #### L AB15 #### Latin American Studies Professor: SUZIE COOK ([id number]) [facility]) [address] [place] [address] [place] GLOMERULAR FILTRATION RATE ML/MIN/1.73 SQ M.PREDICTED 79.3 mL/min/1.73m*2 Normal >60.0 [facility] Comment on above: Result Comment: Calc ulation based on the Chronic Kidney Disease Epidemiology Collaboration (CKD-EPI) equation refit without adjustment for race Performed By: #### L AB15 #### Latin American Studies Professor: SUZIE COOK ([id number]) [facility]) [address] [place] [address] [place] Glucose [Mass/Vol] 85 mg/dL Normal 70-100 [facility] Comment on above: Performed By: #### L AB15 #### Latin American Studies Professor: SUZIE COOK ([id number]) [facility]) [address] [place] [address] [place] Potassium [Moles/Vol] 3.5 mmol/L Normal 3.5-5.1 [facility] Comment on above: Performed By: #### L AB15 #### Latin American Studies Professor: SUZIE COOK ([id number]) [facility] ([facility]) [address] [place] [address] [place] Sodium [Moles/Vol] 135 mmol/L Normal 135-145 [facility] Comment on above: Performed By: #### L AB15 #### Latin American Studies Professor: SUZIE [id number]) [facility] ([facility]) [address] [place] [address] Urea nitrogen [Mass/Vol] 31 mg/dL High 9-20 [facility] Comment on above: Performed By: #### L AB15 #### Latin American Studies Professor: SUZIE COOK ([id number]) [facility]) [address] [place] [address] Basic metabolic 1998 panelon 03-30-2023 Anion gap [Moles/Vol] 7 mmol/L 3 - 13 mmol/L [facility] Calcium [Mass/Vol] 8.4 mg/dL 8.4 - 10. 4 mg/dL [facility] Chloride [Moles/Vol] 102 mmol/L 98 - 10 7 mmol/L [facility] CO2 [Moles/Vol] 26 mmol/L 22 - 30 mmol/L [facility] Creatinine [Mass/Vol] 1.05 mg/dL 0.66 - 1.25 mg/dL [facility] GFR/1.73 sq M.predicted MDRD (S/P/Bld) [Vol rate/Area] 79.3 mL/min/{1.73_m2} - PINF [facility] Glucose [Mass/Vol] 85 mg/dL 70 - 100 mg/dL [facility] Interpretation and review of laboratory results Abnormal [facility] Potassium [Moles/Vol] 3.5 mmol/L 3.5 - 5.1 mmol/L [facility] Sodium [Moles/Vol] 135 mmol/L 135 - 145 mmol/L [facility] Urea nitrogen [Mass/Vol] 31 mg/dL High 9 - 20 mg/dL [facility] CBC (HEMOGRAM)on 03-30-2023 Erythrocyte distribution width (RBC) [Ratio] 14.6 % High 11.5-14.5 [facility] Comment on above: Performed By: #### L AB15 #### Latin American Studies Professor: SUZIE COOK ([id number]) [facility] ([facility]) [address] [place] [address] ERYTHROCYTE MEAN CORPUSCULAR HEMOGLOBIN CONCENTRATION (G/DL) BY AUTOMATED 34.0 % Normal 32.0-36.0 [facility] Comment on above: Performed By: #### L AB15 #### Latin American Studies Professor: SUZIE COOK ([id number]) [facility]) [address] [place] [address] Hematocrit (Bld) [Volume fraction] 28.3 % Low 40.0-52.0 [facility] Comment on above: Performed By: #### L AB15 #### Latin American Studies Professor: SUZIE COOK ([id number]) [facility]) [address] [place] [address] Hemoglobin (Bld) [Mass/Vol] 9.6 g/dL Low 13.0-18.0 [facility] Comment on above: Performed By: #### L AB15 #### Latin American Studies Professor: SUZIE COOK ([id number]) [facility]) [address] [place] [address] MCH (RBC) [Entitic mass] 32.0 pg Normal 26.0-34.0 [facility] Comment on above: Performed By: #### L AB15 #### Latin American Studies Professor: SUZIE COOK ([id number]) [facility] ([facility]) [address] [place] [address] MCV (RBC) [Entitic vol] 94.2 fL Normal 80.0-98.0 [facility] Comment on above: Performed By: #### L AB15 #### Latin American Studies Professor: SUZIE COOK ([id number]) [facility]) [address] [place] [address] Platelet mean volume (Bld) [Entitic vol] 8.6 fL Normal 7.4-12.4 [facility] Comment on above: Performed By: #### L AB15 #### Latin American Studies Professor: SUZIE COOK ([id number]) [facility] ([facility]) [address] [place] [address] Platelets (Bld) [#/Vol] 171 10*3/uL Normal 140-440 [facility] Comment on above: Performed By: #### L AB15 #### Latin American Studies Professor: SUZIE COOK ([id number]) [facility]) [address] [place] [address] RBC (Bld) [#/Vol] 3.01 10*6/uL Low 4.40-5.90 [facility] Comment on above: Performed By: #### L AB15 #### Latin American Studies Professor: SUZIE COOK ([id number]) [facility] ([facility]) [address] [place] [address] WBC (Bld) [#/Vol] 8.8 10*3/uL Normal 3.6-10.7 [facility] Comment on above: Performed By: #### L AB15 #### Latin American Studies Professor: SUZIE COOK ([id number]) [facility] ([facility]) [address] [place] [address] CBC panel Auto (Bld)on 03-30 Erythrocyte distribution width (RBC) [Ratio] 14.6 % High 11.5 - 14.5 % [facility] Hematocrit (Bld) [Volume fraction] 28.3 % Low 40.0 - 52.0 % [facility] Hemoglobin (Bld) [Mass/Vol] 9.6 g/dL Low 13.0 - 18.0 g/dL [facility] Interpretation and review of laboratory results Abnormal [facility] MCH (RBC) [Entitic mass] 32.0 pg 26. 0 - 34.0 pg [facility] MCHC (RBC) [Mass/Vol] 34.0 % 32.0 - 36.0 % [facility] MCV (RBC) [Entitic vol] 94.2 fL 80.0 - 98.0 fL [facility] Platelet mean volume (Bld) [Entitic vol] 8.6 fL 7.4 - 12.4 fL [facility] Platelets (Bld) [#/Vol] 171 10*3/uL 140 - 440 10*3/uL [facility] RBC (Bld) [#/Vol] 3.01 10*6/uL Low 4.40 - 5.9 0 10*6/uL [facility] WBC (Bld) [#/Vol] 8.8 10*3/uL 3.6 - 10.7 10*3/uL [facility] IDNon 03-30-2023 IDN Problem: Knowledge Deficit Goal: Patient/family/careg iver demonstrates understanding of disease process, treatment plan, medications, and discharge instructions Outcome: Progressing Problem: Potential for Compromised Skin Integrity Goal: Skin Integrity is Maintained or Improved Outcome: Progressing Problem: Potential for Compromised Skin Integrity Goal: Nutritional status is improving Outcome: Progressing Problem: Pain - Adult Goal: Verbalizes/displays adequate comfort level or baseline comfort level Outcome: Progressing Problem: Safety - Adult Goal: Free from fall injury Outcome: Progressing Problem: Discharge Planning Goal: Discharge to home or other facility with appropriate resources Outcome: Progressing Problem: Problem Interventions Goal: Assess Nutritional Intake Outcome: Progressing Normal [facility] Laboratory - Chemistry and C hemistry - challengeon 03-30-2023 Magnesium [Mass/Vol] 2.2 mg/dL 1.6 - 2 .3 mg/dL [facility] Laboratory - Coagulationon 1 05-31-2022 PT Coag (Bld) [Time] 12.4 s High 9.0 - 1 2.0 s [facility] MAGNESIUMon 03-30-2023 Magnesium [Mass/Vol] 2.2 mg/dL Normal 1.6-2.3 [facility] Comment on above: Performed By: #### L AB15 #### Latin American Studies Professor: SUZIE COOK ([id number]) [facility] ([facility]) [address] [place] [address] Magnesium [Mass/Vol]on 03-30 Interpretation and review of laboratory results Normal [facility] No Panel Informationon 03-30 [facility] Radiology Study observation (narrative) [facility] Dev siri [facility] No Panel InformationOrdered By: Irene Kimball on 03-30-2023 [facility] Work Phone: PROTHROMBIN TIMEon INR Coag (PPP) [Relative time] 1.2 {INR} High 0.9-1.1 [facility] Comment on above: Result Comment: Srikanth mmended Anticoagulant Therapy: SEE BELOW ----- INR of 2.0 - 3.0 : - Prophylaxis of Venous Thrombosis (high-risk surgery) - Treatment of Venous Thrombosis - Treatment of Pulmonary Embolism (Includes tissue heart valves, Acute Myocardial Infarction to prevent systemic embolism, Valvular Heart Disease, and Atrial Fibrillation) ----- INR of 2.5 - 3.5 : - Mechanical Prosthetic Valves (high risk) - If oral anticoagulant therapy is used to prevent Myocardial Infarction Performed By: #### L AB15 #### Latin American Studies Professor: SUZIE COOK ([id number]) [facility] ([facility]) [address] [place] [address] PT Coag (PPP) [Time] 12.4 s High 9.0-12.0 [facility] Comment on above: Performed By: #### L AB15 #### Latin American Studies Professor: SUZIE COOK ([id number]) [facility] ([facility]) [address] [place] [address] PT Coag (Bld) [Time]on 03-30 INR Coag (PPP) [Relative time] 1.2 {INR} High 0.9 - 1.1 [facility] Interpretation and review of laboratory results Abnormal [facility] Progress Noteon 03-30-2023 Progress Note PHYSICAL THERAPY [facility] Treatment Note Name/MRN: Regan Coughlin ([id number]) Date of : 1960 Age: 63 y.o. Room/Bed: T1-105/T1-105 A Discharge Recommendation: Home with Assist PRN and Outpatient PT (cardiac rehab) Equipment Needed: TBD Prior Level of Function ADL Assistance: Independent Ambulation Assistance: Independent Transfer Assistance: Independent Patient reports his brother does not work but does have chronic back pain which limits him. Patient is typically indep with all IADLs, ADLs and mobility without a device. Assessment Pt min assist for transfer, CGA for gait. Increase time. No LOB when ambulating. Reviewed P&C exercises with patient. Anticipate home with assist upon discharge. Subjective Pt in chair, agreeable to PT. Pain: Pt denies any current pain. Medical Precautions: No active isolations Proper PPE donned/doffed in accordance with facility standards. Fall Risk: [place] Fall Risk Score: 50 (High Risk) Precautions/Restrict ions: Sternal Precautions: no lifting more than 10lbs, modified UE precautions with move in the tube Lines/Drains/Airways : tele, continuous pulse ox, chest tube, 2L O2 NC, introducer R IJ Family/Caregiver Present: none Objective Ambulation Ambulation 1 Assistive device(s) used: kurt Assist level: Contact Guard Distance (ft): 400ft Quality of gait: uneven step length, slow drew Transfers/Mobility Sit to stand: Min Assist Stand to sit: Min Assist X1 from chair. Cues for sternal precautions. Device(s) used: nezzie Exercises Exercises Upper Extremity: P&C ex #1-9 all x 10 reps each Balance: standing with nezzie, no c/o dizziness or LOB, SBA for balance. Plan Continue acute PT per plan of care. Safety/Education Safety Safety Devices in place: call light within reach, left in chair, and chair alarm in place Restraints: No Education Education Given To: patient Education Provided: Gait Training, Plan of Care, Home Exercise Program, Precautions, Transfer Training, Fall Prevention Education, Discharge Recommendations, and Benefits of Increasing Activity Education Method: Verbal Barriers to Learning: None Education Outcome: Verbalized Understanding Outcome Measures AM-PAC AM-PAC Inpatient Mobility Raw Score (No Stairs) : 15 JH-HLM JH-HLM Score: Walked 250 ft or more (i.e. several laps on unit) Goals Patient Stated Goal: To have less pain Encounter Problems Encounter Problems (Active) Cardiac Patient will perform bed mobility with modified independence in order to improve independence and prepare for out of bed mobility. (Not Addressed) Start: 03/26/23 Expected End: 04/09/23 Patient will complete sit to stand transfer with modified independence in order to improve safety and prepare for out of bed mobility. (Progressing) Start: 03/26/23 Expected End: 04/09/23 Patient will ambulate 400 feet or ambulate 5 minutes with modified independence with RPE of 14 or lower. (Progressing) Start: 03/26/23 Expected End: 04/09/23 Patient will ascend and descend flight of stairs with modified independence and rail for balance only. (Not Addressed) Start: 03/26/23 Expected End: 04/09/23 Patient will be independent with P&C exercises. (Progressing) Start: 03/26/23 Expected End: 04/09/23 Patient will be independent with managing secretions and home walking program. (Progressing) Start: 03/26/23 Expected End: 04/09/23 Pain - Adult Therapy Time Individual Co-treatment Time In 0843 Time Out 0902 Minutes 19 Timed Code Treatment Minutes: 19 Minutes (gait) Nils Barker PTA [facility] US GUIDED THORACENTESISon US GUIDED THORACENTESIS [facility] 1960 [id number] Exam Date/Time: 03/30/2023 09:58 Procedure: US GUIDED THORACENTESIS Ordering Provider: WAHL JENNIFER Reason For Exam: PLEURAL EFFUSION PROCEDURE: Ultrasound-guided right thoracentesis PROCEDURAL PERSONNEL Advanced Practice Provider: Irene Kimball PA-C Attending physician, Chris Vila M.D., was available in the department if needed. Indication: Pleural effusion Additional clinical history: None Complications: No immediate complications. IMPRESSION: Successful ultrasound-guided right thoracentesis with drainage of 350 milliliters of red fluid. __ PROCEDURE SUMMARY: - Limited thoracic ultrasound - Ultrasound-guided thoracentesis - Additional procedure(s): None PROCEDURE DETAILS: Pre-procedure Consent: Informed consent for the procedure including risks, benefits and alternatives was obtained and time-out was performed prior to the procedure. Preparation: The site was prepared and draped using maximal sterile barrier technique including cutaneous antisepsis. Anesthesia/sedation None Limited thoracic ultrasound Limited thoracic ultrasound was performed using a curved transducer. A safe window for thoracentesis was identified. Moderate to large pleural effusion was seen on the side of aspiration. The contralateral side was not investigated. Thoracentesis Local anesthesia was administered. Ultrasound was used to pick a safe access site. A permanent image was stored. The pleural space was accessed and fluid return confirmed position. The fluid was drained. Catheter placed: 5F Yueh Closure The catheter was removed. A sterile bandage was applied. Post-drainage hemithorax findings: Minimal effusion Additional Details Additional description of procedure: None Equipment details: None Specimens removed: Pleural fluid Estimated blood loss (mL): Less than 10 Report Dictated on Electronically Signed By: Irene Kimball PA-C Electronically Signed Date/Time: 03/30/2023 11:07 AM [facility] XR CHEST 1 VIEWon 03-30-2023 XR CHEST 1 VIEW Patient Name: REGAN COUGHLIN : 1960 [facility]#: [id number] Exam Date/Time: 03/30/2023 05:17 Procedure: XR CHEST 1 VIEW Ordering Provider: WAHL JENNIFER Reason For Exam: Shortness of breath CHEST CLINICAL INDICATION: Shortness of breath TECHNIQUE: AP portable chest COMPARISON: Chest radiograph from 03/29/2023 FINDINGS: SUPPORT DEVICES: Mediastinal drain and left basilar chest tube. Left atrial appendage clip. Right internal jugular sheath tip projects over the region of the right brachiocephalic vein. HEART AND MEDIASTINUM: Stable prominence of the cardiac silhouette. Mediastinal surgical clips. LUNGS AND PLEURA: Mild consolidation in the lung bases, most likely due to atelectasis. Small bilateral pleural effusions. No pneumothorax is identified. OSSEOUS STRUCTURES: Degenerative change of the spine. Median sternotomy wires. Bilateral acromioclavicular joint DJD. Endoluminal stent graft projects over the midline upper abdomen. IMPRESSION: Small bilateral pleural effusions. Mild consolidation in the lung bases, likely atelectasis. Report Dictated on Electronically Signed By: Yesica Arizmendi MD Electronically Signed Date/Time: 03/30/2023 8:27 AM EST Normal [facility] XR Chest Single viewon 03-30 [facility] Radiology Study observation (narrative) [facility] XR Chest Single viewOrdered By: Yesica Arizmendi on 03-30-2023 [facility] Work Phone: BASIC METABOLIC PANELon 12-0 Anion gap [Moles/Vol] 9 mmol/L Normal 3-13 [facility] Comment on above: Performed By: #### L AB15, [id number] ####Latin American Studies Professor: SUZIE COOK ([id number])[address] Calcium [Mass/Vol] 8.4 mg/dL Normal 8.4-10.4 [facility] Comment on above: Performed By: #### L AB15, [id number] ####Latin American Studies Professor: SUZIE COOK ([id number])[facility] ([facility])[address] [place] [address] Chloride [Moles/Vol] 103 mmol/L Normal 98-107 [facility] Comment on above: Performed By: #### L AB15, [id number] ####Latin American Studies Professor: SUZIE COOK ([phone])[facility] [place] [address] [place] CO2 [Moles/Vol] 26 mmol/L Normal 22-30 [facility] Comment on above: Performed By: #### L AB15, [id number] ####Latin American Studies Professor: SUZIE COOK ([id number])[facility])[address] [place] [address] Creatinine [Mass/Vol] 1.08 mg/dL Normal 0.66-1.25 [facility] Comment on above: Performed By: #### L AB15, [id number] ####Latin American Studies Professor: SUZIE COOK ([id number])[facility] ([facility])[address] [place] [address] GLOMERULAR FILTRATION RATE ML/MIN/1.73 SQ M.PREDICTED 76.6 mL/min/1.73m*2 Normal >60.0 [facility] Comment on above: Result Comment: Calc ulation based on the Chronic Kidney Disease Epidemiology Collaboration (CKD-EPI) equation refit without adjustment for race Performed By: #### L AB15, [id number] ####Latin American Studies Professor: SUZIE COOK ([id number])[facility] ([facility])[address] [place] [address] [place] Glucose [Mass/Vol] 102 mg/dL High 70-100 [facility] Comment on above: Performed By: #### L AB15, [id number] ####Latin American Studies Professor: SUZIE COOK ([id number])[facility])[address] [place] [address] Potassium [Moles/Vol] 3.1 mmol/L Low 3.5-5.1 [facility] Comment on above: Performed By: #### L AB15, [id number] ####Latin American Studies Professor: SUZIE COOK ([id number])[facility] ([facility])[address] [place] [address] Sodium [Moles/Vol] 138 mmol/L Normal 135-145 [facility] Comment on above: Performed By: #### L AB15, [id number] ####Latin American Studies Professor: SUZIE COOK ([id number])[facility] ([facility])[address] [place] [address] Urea nitrogen [Mass/Vol] 37 mg/dL High 9-20 [facility] Comment on above: Performed By: #### L AB15, [id number] ####Latin American Studies Professor: SUZIE COOK ([id number])[facility] ([facility])[address] [place] [address] Basic metabolic 1998 panelon 03-29-2023 Anion gap [Moles/Vol] 9 mmol/L 3 - 13 mmol/L [facility] Calcium [Mass/Vol] 8.4 mg/dL 8.4 - 10. 4 mg/dL [facility] Chloride [Moles/Vol] 103 mmol/L 98 - 10 7 mmol/L [facility] CO2 [Moles/Vol] 26 mmol/L 22 - 30 mmol/L [facility] Creatinine [Mass/Vol] 1.08 mg/dL 0.66 - 1.25 mg/dL [facility] GFR/1.73 sq M.predicted MDRD (S/P/Bld) [Vol rate/Area] 76.6 mL/min/{1.73_m2} - PINF [facility] Glucose [Mass/Vol] 102 mg/dL High 70 - 100 mg/dL [facility] [facility] Interpretation and review of laboratory results Abnormal [facility] Potassium [Moles/Vol] 3.1 mmol/L Low 3.5 - 5.1 mmol/L [facility] Sodium [Moles/Vol] 138 mmol/L 135 - 145 mmol/L [facility] Urea nitrogen [Mass/Vol] 37 mg/dL High 9 - 20 mg/dL [facility] CALCIUM, IONIZEDon CALCIUM IONIZED 4.10 mg/dL Low 4.30-5.20 [facility] Comment on above: Order Comment: Obtai n PRN and check ionized Ca level if serum Ca level less than 8.0 Performed By: #### L AB15 #### Latin American Studies Professor: SUZIE COOK ([id number]) [facility] ([facility]) [address] [place] [address] PH, IONIZED CALCIUM 7.53 High 7.31-7.46 [facility] Comment on above: Order Comment: Obtai n PRN and check ionized Ca level if serum Ca level less than 8.0 Performed By: #### L AB15 #### Latin American Studies Professor: SUZIE COOK ([id number]) [facility] ([facility]) [address] [place] [address] CBC (HEMOGRAM)on 03-29-2023 Erythrocyte distribution width (RBC) [Ratio] 14.8 % High 11.5-14.5 [facility] Comment on above: Performed By: #### L AB15 #### Latin American Studies Professor: SUZIE COOK ([id number]) [facility] ([facility]) [address] [place] [address] ERYTHROCYTE MEAN CORPUSCULAR HEMOGLOBIN CONCENTRATION (G/DL) BY AUTOMATED 34.6 % Normal 32.0-36.0 [facility] Comment on above: Performed By: #### L AB15 #### Latin American Studies Professor: SUZIE COOK ([id number]) [facility] ([facility]) [address] [place] [address] Hematocrit (Bld) [Volume fraction] 27.8 % Low 40.0-52.0 [facility] Comment on above: Performed By: #### L AB15 #### Latin American Studies Professor: SUZIE COOK ([id number]) [facility] ([facility]) [address] [place] [address] Hemoglobin (Bld) [Mass/Vol] 9.6 g/dL Low 13.0-18.0 [facility] Comment on above: Performed By: #### L AB15 #### Latin American Studies Professor: SUZIE COOK ([id number]) [facility] ([facility]) [address] [place] [address] MCH (RBC) [Entitic mass] 32.3 pg Normal 26.0-34.0 [facility] Comment on above: Performed By: #### L AB15 #### Latin American Studies Professor: SUZIE COOK ([id number]) [facility] ([facility]) [address] [place] [address] MCV (RBC) [Entitic vol] 93.3 fL Normal 80.0-98.0 [facility] Comment on above: Performed By: #### L AB15 #### Latin American Studies Professor: SUZIE COOK ([id number]) [facility] ([facility]) [address] [place] [address] Platelet mean volume (Bld) [Entitic vol] 9.1 fL Normal 7.4-12.4 [facility] Comment on above: Performed By: #### L AB15 #### Latin American Studies Professor: SUZIE COOK ([id number]) [facility] ([facility]) [address] [place] [address] Platelets (Bld) [#/Vol] 140 10*3/uL Normal 140-440 [facility] Comment on above: Performed By: #### L AB15 #### Latin American Studies Professor: SUZIE COOK ([id number]) [facility] ([facility]) [address] [place] [address] RBC (Bld) [#/Vol] 2.99 10*6/uL Low 4.40-5.90 [facility] Comment on above: Performed By: #### L AB15 #### Latin American Studies Professor: SUZIE COOK ([id number]) [facility] ([facility]) [address] [place] [address] WBC (Bld) [#/Vol] 10.7 10*3/uL Normal 3.6-10.7 [facility] Comment on above: Performed By: #### L AB15 #### Latin American Studies Professor: SUZIE COOK ([id number]) [facility] ([facility]) [address] [place] [address] CBC panel Auto (Bld)on 03-29 Erythrocyte distribution width (RBC) [Ratio] 14.8 % High 11.5 - 14.5 % [facility] Hematocrit (Bld) [Volume fraction] 27.8 % Low 40.0 - 52.0 % [facility] Hemoglobin (Bld) [Mass/Vol] 9.6 g/dL Low 13.0 - 18.0 g/dL [facility] Interpretation and review of laboratory results Abnormal [facility] MCH (RBC) [Entitic mass] 32.3 pg 26. 0 - 34.0 pg [facility] MCHC (RBC) [Mass/Vol] 34.6 % 32.0 - 36.0 % [facility] MCV (RBC) [Entitic vol] 93.3 fL 80.0 - 98.0 fL [facility] Platelet mean volume (Bld) [Entitic vol] 9.1 fL 7.4 - 12.4 fL [facility] Platelets (Bld) [#/Vol] 140 10*3/uL 140 - 440 10*3/uL [facility] RBC (Bld) [#/Vol] 2.99 10*6/uL Low 4.40 - 5.9 0 10*6/uL [facility] WBC (Bld) [#/Vol] 10.7 10*3/uL 3.6 - 10.7 10*3/uL [facility] Calcium.ionized [Moles/Vol]o n 03-29-2023 Calcium.ionized (Bld) [Moles/Vol] 4.10 mg/dL Low 4.30 - 5.20 mg/dL [facility] Interpretation and review of laboratory results Abnormal [facility] PH, IONIZED CALCIUM 7.53 High 7.31 - 7.46 [facility] - Chemistry and C hemistry - challengeon 03-29-2023 Magnesium [Mass/Vol] 2.2 mg/dL 1.6 - 2 .3 mg/dL [facility] MAGNESIUMon 03-29-2023 Magnesium [Mass/Vol] 2.2 mg/dL Normal 1.6-2.3 [facility] Comment on above: Performed By: #### L AB15, [id number] ####Latin American Studies Professor: SUZIE COOK ([id number])[facility] ([address] Magnesium [Mass/Vol]on 03-29 Interpretation and review of laboratory results Normal [facility] th No Panel Informationon 03-29 Blood Expiration Date [id number] [facility] Blood Expiration Date [facility] Crossmatch interpretation COMP [facility] Dispense Status Released from Crossmatch [facility] Dispense Status Transfused [facility] Product Blood Type 5100 [facility] PRODUCT CODE [id number] [facility] PRODUCT CODE [id number] [facility] Unit ABO O [facility] Unit Number [id number] [facility] Number [id number] [facility] Number [id number]-* [facility] RH Positive [facility] Unit Volume 300 mL [facility] Progress Noteon 03-29-2023 Progress Note PHYSICAL THERAPY [facility] Treatment Note Name/MRN: Regan Coughlin ([id number]) Date of : 1960 Age: 63 y.o. Room/Bed: T1-105/T1-105 A Discharge Recommendation: IP Rehab Equipment Needed: TBD Prior Level of Function ADL Assistance: Independent Ambulation Assistance: Independent Transfer Assistance: Independent Patient reports his brother does not work but does have chronic back pain which limits him. Patient is typically indep with all IADLs, ADLs and mobility without a device. Assessment Pt ambulated 50 + 10+ 40 ft with Nezzie, requiring 3 rest breaks. Min A required for all mobility this session. Pt unable to recall nor demonstrate modified sternal precautions. Visual cuing required for learning. Discharge recommendations changed to IP Rehab. Subjective Spoke with RN who states pt may be a little out of it, but could attempt PT. Pt in chair with sitter in room and agreeable to therapy. Doughnut Icer Machine present in room. Pain: Pt denies any current pain. Medical Precautions: No active isolations Proper PPE donned/doffed in accordance with facility standards. Fall Risk: [place] Fall Risk Score: 50 (High Risk) Precautions/Restrict ions: Sternal Precautions: no lifting more than 10lbs, modified UE precautions with move in the tube Lines/Drains/Airways : tele, continuous pulse ox, chest tube, ramirez, 4L O2 NC, introducer R IJ, art line RUE Sitter Overall Cognitive Status: Exceptions - Following commands: follows one step commands with increased time and inconsistently follows commands - Attention span: difficulty attending to directions and difficulty dividing attention - Memory: decreased recall of precautions - Safety judgement: decreased awareness of need for assistance - Problem solving: assistance required to identify errors made and assistance required to correct errors made - Insights: decreased awareness of deficits - Initiation: requires cues for some - Sequencing: requires cues for some Overall Orientation Status: Oriented to Person Family/Caregiver Present: none Objective Ambulation Ambulation 1 Assistive device(s) used: Nezzie Assist level: Min Assist Distance (ft): 50 + 10 + 40 with 3 rest breaks Quality of gait: shuffling, slow drew, path deviations Transfers/Mobility Sit to stand: Min Assist Stand to sit: Min Assist Device(s) used: Nezzie Exercises Exercises Upper Extremity: P&C ex #1-7 x 5 reps eac Comments: Pt limited by decrease endurance, SOBOE Plan Continue acute PT per plan of care. Safety/Education Safety Safety Devices in place: left in chair, patient at risk for falls, nurse notified, no alarms engaged upon entry, and residential tech present Restraints: No Education Education Given To: patient Education Provided: PT Role, PT Goals, Gait Training, and Plan of Care Education Method: Verbal Barriers to Learning: Cognition Education Outcome: Verbalized Understanding Outcome Measures AM-PAC AM-PAC Inpatient Mobility Raw Score (No Stairs) : 15 JH-HLM JH-HLM Score: Walked 25 ft or more (i.e. walked outside of room) Goals Patient Stated Goal: To have less pain Encounter Problems Encounter Problems (Active) Cardiac Patient will perform bed mobility with modified independence in order to improve independence and prepare for out of bed mobility. (Not Addressed) Start: 03/26/23 Expected End: 04/09/23 Patient will complete sit to stand transfer with modified independence in order to improve safety and prepare for out of bed mobility. (Progressing) Start: 03/26/23 Expected End: 04/09/23 Patient will ambulate 400 feet or ambulate 5 minutes with modified independence with RPE of 14 or lower. (Progressing) Start: 03/26/23 Expected End: 04/09/23 Patient will ascend and descend flight of stairs with modified independence and rail for balance only. (Not Addressed) Start: 03/26/23 Expected End: 04/09/23 Patient will be independent with P&C exercises. (Progressing) Start: 03/26/23 Expected End: 04/09/23 Patient will be independent with managing secretions and home walking program. (Progressing) Start: 03/26/23 Expected End: 04/09/23 Pain - Adult Therapy Time Individual Co-treatment Time In 1058 Time Out 1127 Minutes 29 Lakisha Hathaway [facility] Progress Note Cardiothoracic Surgery Interval Note PATIENT NAME: Regan Coughlin : 1960 (63 y.o.) TODAY'S DATE: 03/29/2023 Interval History: Check POCUS of right ~2cm noted at one level - discussed with CCM; plan RAYMOND dover tomorrow [facility] Progress Note Attestation signed by Mikhail Casillas MD at 03/29/2023 10:09 AM I have personally performed a face to face diagnostic evaluation on this patient today on 03/29/23. Labs, imaging studies, and electronic medical record notes on [facility] have been reviewed by me. This note documented and discussed by the []licensed mortgage loan officer []Fellow [x] GEOVANNY reflects my history, exam and medical decision making. I have reviewed and agree with the care plan. Changes were made in the orders as necessary. ROS documentation was reviewed and negative unless otherwise stated in the HPI. My history, exam, assessment and plan are as follows: Time spent for coordination of care: a subsequent visit: 35 minutes (Level II) Off nipride and precedex drips Resp unlabored, less agitated, oriented x 2 Severe CAD 03/25 s/p CABG, AtriClip Alcohol use disorder and withdrawal Pulmonary edema Hx Afib, currently sinus HTN Expected acute blood loss anemia psot op Tobacco and alcohol use Hx AAA, aortoiliac endograft and b/l renal artery stents Wean O2 as tolerated Plan IR guided right thora CIWA with prn ativan, thiamine, folic acid Lasix diuresis On norvasc, hydralazine, metoprolol ASA, statin, b-evelyn Cardiothoracic Surgery/CCM Progress Note PATIENT NAME: Regan Coughlin DATE: 03/29/23 HPI: 63 yo male with PMH of CAD & STEMI s/p PCI (RCA in 2019), Afib (on Eliquis), AAA s/p fenestrated EVAR with RTOR for bilateral groin hematomas, hematuria, HTN, HPL, ETOH, current smoker. He presented to [facility] ED on 01/07/23 with worsening SOB x3 weeks. Echo shoed LVEF 50% with wall motion abnormalities. He did develop Afib RVR during hospitalization and reverted back to SR. Had a heart cath on 02/16/23 which showed multivessel CAD involving LM, prox LAD, and RCA. Surgery/Procedure: 03/25/23: CABG x4, MAZE, LAAL with atriclip, and LLE EVH with Dr. Villarreal Interval History: 03/29/23, POD# 4: mildly confused reoriented; precedex weaned off - was able to sleep last night. Sitter in room: no acute issues on 2L NC. Not eating much. Drinking lots of fluid. Walking daley this morning ~150 feet and back to room. Review of Systems Constitutional: Negative for diaphoresis, fatigue and fever. Respiratory: Negative for cough, shortness of breath and wheezing. Cardiovascular: Negative for chest pain, palpitations and leg swelling. Gastrointestinal: Negative for abdominal distention, constipation and diarrhea. Skin: Negative for color change, pallor and rash. Psychiatric/Behavior al: Positive for confusion. Objective: CT output cc/24hrs: 3225 UO cc/24hrs: 380 Last BM Date: 03/28/23 Vitals: BP: 119/64, MAP (mmHg): 81, BP Method: Automatic Heart Rate: 75 Resp: 15 Temp: 37.2 ?C (99 ?F), Temp Source: Bladder BMI (Calculated): 25.95 ABG Recent Labs 03/27/23204903/28/23412 PHART 7.522* 7.506* [id number] 29.6* 31.8* PO2ART 63.1* 68.8* [id number] 23.7 24.6 [id number] 92.1* 94.1* BEART 1.5 1.8 Pacer Wires: V wires CXR: BMP: Recent Labs 03/27/2323303/27/23122503/28/2341103/28/237 03/29/23 0011 NA -- < > 136 136 138 K -- < > 3.7 3.3* 3.1* CL -- < > 104 104 103 CO2 -- < > 22 25 26 BUN -- < > 32* 33* 37* CREATININE -- < > 1.00 1.03 1.08 CALCIUM -- < > 8.9 8.7 8.4 MG 2.4* -- 2.3 -- 2.2 < > = values in this interval not displayed. CBC: Recent Labs 03/27/2323303/27/23122503/27/23204903/28/2341103/28/233 03/29/23 0011 WBC 13.0* -- -- 15.4* -- 10.7 HGB 6.4* 9.1* < > 9.3* 9.9 9.6* HCT 18.9* 27.1* -- 27.3* -- 27.8* PLT 109* -- -- 138* -- 140 MCV 93.7 -- -- 93.2 -- 93.3 RDW 14.4 -- -- 15.2* -- 14.8* < > = values in this interval not displayed. INR: Recent Labs 03/27/23233 INR 1.6* Physical Exam Cardiovascular: Rate and Rhythm: Normal rate and regular rhythm. Heart sounds: Normal heart sounds. No murmur heard. No friction rub. Pulmonary: Effort: Pulmonary effort is normal. Breath sounds: Examination of the right-lower field reveals decreased breath sounds. Decreased breath sounds present. Skin: General: Skin is warm and dry. Capillary Refill: Capillary refill takes less than 2 seconds. Findings: Bruising and ecchymosis present. Neurological: Mental Status: He is alert. Psychiatric: Behavior: Behavior is cooperative. Assessment: CAD s/p CABGx4 03/25 Afib (on Eliquis) s/p MAZE 03/25 AAA s/p fenestrated EVAR HTN HPL ETOH Right effusion Current smoker Hx. Hematuria Hx. Stent to RCA in 2019 Post operative Pulm Management: Normal Post-operative Course Acute blood loss anemia/consumptive thrombocytopenia Plan: Patient Status: Telemetry Medications: Continue ASA (more content not included)... Normal [facility] XR CHEST 1 VIEWon 03-29-2023 XR CHEST 1 VIEW [facility] 1960 [id number] Exam Date/Time: 03/29/2023 05:20 Procedure: XR CHEST 1 VIEW Ordering Provider: [facility] JENNIFER Reason For Exam: Shortness of breath CLINICAL INFORMATION: Shortness of breath. CABG. Chest tubes. Portable view of the chest at 0520 hours is provided and compared to a previous study dated March 28, 2023. FINDINGS: An introducer sheath remains in place via the right internal jugular vein. The patient is status post CABG with the usual sternal wires and surgical clips. The cardiac silhouette and mediastinum are otherwise unremarkable. Infiltrate and effusion are noted in the right lower lobe. There is mild prominence of the central pulmonary vasculature. Mediastinal left-sided chest tubes are in place. There is no pneumothorax. IMPRESSION: 1. Postoperative changes (CABG). 2. Right lower lobe infiltrate and effusion. 3. Prominence of the central pulmonary vasculature consistent with mild congestive heart failure/fluid overload. 4. Chest tubes without pneumothorax. 5. No significant change when compared yesterday's study. Report Dictated on Electronically Signed By: Hitesh Hawkins MD Electronically Signed Date/Time: 03/29/2023 5:41 AM EST Normal [facility] XR Chest Single viewon 03-[address] [facility] Radiology Study observation (narrative) [facility] BASIC METABOLIC PANELon Anion gap [Moles/Vol] 7 mmol/L Normal 3-13 [facility] Comment on above: Performed By: #### L AB15 #### Latin American Studies Professor: SUZIE COOK ([id number]) [facility] ([facility]) [address] [place] [address] Calcium [Mass/Vol] 8.7 mg/dL Normal 8.4-10.4 [facility] Comment on above: Performed By: #### L AB15 #### Latin American Studies Professor: SUZIE COOK ([id number]) [facility] ([facility]) [address] [place] [address] Chloride [Moles/Vol] 104 mmol/L Normal 98-107 [facility] Comment on above: Performed By: #### L AB15 #### Latin American Studies Professor: SUZIE COOK ([id number]) [facility] ([facility]) [address] [place] [address] [place] CO2 [Moles/Vol] 25 mmol/L Normal 22-30 [facility] Comment on above: Performed By: #### L AB15 #### Latin American Studies Professor: SUZIE COOK ([id number]) [facility] ([facility]) [address] [place] [address] Creatinine [Mass/Vol] 1.03 mg/dL Normal 0.66-1.25 [facility] Comment on above: Performed By: #### L AB15 #### Latin American Studies Professor: SUZIE COOK ([id number]) [facility] ([facility]) [address] [place] [address] [place] GLOMERULAR FILTRATION RATE ML/MIN/1.73 SQ M.PREDICTED 81.1 mL/min/1.73m*2 Normal >60.0 [facility] Comment on above: Result Comment: Calc ulation based on the Chronic Kidney Disease Epidemiology Collaboration (CKD-EPI) equation refit without adjustment for race Performed By: #### L AB15 #### Latin American Studies Professor: SUZIE COOK ([id number]) [facility] [address] [place] [address] [place] Glucose [Mass/Vol] 69 mg/dL Low 70-100 [facility] Comment on above: Performed By: #### L AB15 #### Latin American Studies Professor: SUZIE COOK ([id number]) [facility] [address] [place] [address] [place] Potassium [Moles/Vol] 3.3 mmol/L Low 3.5-5.1 [facility] Comment on above: Performed By: #### L AB15 #### Latin American Studies Professor: SUZIE COOK ([id number]) [facility] [address] [place] [address] Sodium [Moles/Vol] 136 mmol/L Normal 135-145 [facility] Comment on above: Performed By: #### L AB15 #### Latin American Studies Professor: SUZIE COOK ([id number]) [facility] [address] [place] [address] [place] Urea nitrogen [Mass/Vol] 33 mg/dL High 9-20 [facility] Comment on above: Performed By: #### L AB15 #### Latin American Studies Professor: SUZIE COOK ([id number]) [facility] [address] [place] [address] Anion gap [Moles/Vol] 10 mmol/L Normal 3-13 [facility] Comment on above: Performed By: #### L AB15 #### Latin American Studies Professor: SUZIE COOK ([id number]) [facility] [address] [place] [address] [place] Calcium [Mass/Vol] 8.9 mg/dL Normal 8.4-10.4 [facility] Comment on above: Performed By: #### L AB15 #### Latin American Studies Professor: SUZIE COOK ([id number]) [facility] [address] [place] [address] [place] Chloride [Moles/Vol] 104 mmol/L Normal 98-107 [facility] Comment on above: Performed By: #### L AB15 #### Latin American Studies Professor: SUZIE COOK ([id number]) [facility] ([facility]) [address] [place] [address] CO2 [Moles/Vol] 22 mmol/L Normal 22-30 [facility] Comment on above: Performed By: #### L AB15 #### Latin American Studies Professor: SUZIE COOK ([id number]) [facility] ([facility]) [address] [place] [address] Creatinine [Mass/Vol] 1.00 mg/dL Normal 0.66-1.25 [facility] Comment on above: Performed By: #### L AB15 #### Latin American Studies Professor: SUZIE COOK ([id number]) [facility]) [address] [place] [address] GLOMERULAR FILTRATION RATE ML/MIN/1.73 SQ M.PREDICTED 84.0 mL/min/1.73m*2 Normal >60.0 [facility] Comment on above: Result Comment: Calc ulation based on the Chronic Kidney Disease Epidemiology Collaboration (CKD-EPI) equation refit without adjustment for race Performed By: #### L AB15 #### Latin American Studies Professor: SUZIE COOK ([id number]) [facility] ([facility]) [address] [place] [address] [place] Glucose [Mass/Vol] 85 mg/dL Normal 70-100 [facility] Comment on above: Performed By: #### L AB15 #### Latin American Studies Professor: SUZIE COOK ([id number]) [facility] ([facility]) [address] [place] [address] [place] Potassium [Moles/Vol] 3.7 mmol/L Normal 3.5-5.1 [facility] Comment on above: Performed By: #### L AB15 #### Latin American Studies Professor: SUZIE COOK ([id number]) [facility] ([facility]) [address] [place] [address] [place] Sodium [Moles/Vol] 136 mmol/L Normal 135-145 [facility] Comment on above: Performed By: #### L AB15 #### Latin American Studies Professor: SUZIE COOK ([id number]) [facility] ([facility]) [address] [place] [address] Urea nitrogen [Mass/Vol] 32 mg/dL High 9-20 [facility] Comment on above: Performed By: #### L AB15 #### Latin American Studies Professor: SUZIE COOK ([id number]) [facility] ([facility]) [address] [place] [address] BLOOD GAS ARTERIALon 023 Base excess Calc (Bld) [Moles/Vol] 1.8 mmol/L Normal -3.0-3.0 [facility] Comment on above: Performed By: #### L AB15 #### Latin American Studies Professor: SUZIE COOK ([id number]) [facility] ([facility]) [address] [place] [address] CO2 [Moles/Vol] 25.6 mmol/L Normal 23.0-27.0 [facility] [facility] Comment on above: Performed By: #### L [id number] #### Latin American Studies Professor: SZUIE COOK ([id number]) [facility] ([facility]) [address] [place] [address] HCO3 (Bld) [Moles/Vol] 24.6 mmol/L Normal 21.0-25.0 S [facility] Comment on above: Performed By: #### L [id number] #### Latin American Studies Professor: SUZIE COOK ([id number]) [facility] ([facility]) [address] [place] [address] Hemoglobin (Bld) [Mass/Vol] 9.9 g/dL Normal Screen Only [facility] Comment on above: Performed By: #### L [id number] #### Latin American Studies Professor: SUZIE COOK ([phone]) [facility]) [address] [place] [address] OXYGEN SATURATION (%) IN ARTERIAL BLOOD 94.1 % Low 95.0-100.0 [facility] Comment on above: Performed By: #### L AB15 #### Latin American Studies Professor: SUZIE COOK ([id number]) [facility] ([facility]) [address] [place] [address] PCO2 ARTERIAL 31.8 mm Hg Low >35.0-<45.0 [facility] Comment on above: Performed By: #### L [id number] #### Latin American Studies Professor: SUZIE COOK ([id number]) [facility] ([facility]) [address] [place] [address] PH ARTERIAL 7.506 High 7.350-7.450 [facility] Comment on above: Performed By: #### L AB15 #### Latin American Studies Professor: SUZIE COOK ([id number]) [facility] ([facility]) [address] [place] [address] PO2 ARTERIAL 68.8 mm Hg Low 80.0-100.0 [facility] Comment on above: Performed By: #### L AB15 #### Latin American Studies Professor: SUZIE COOK ([id number]) [facility] ([facility]) [address] [place] [address] SOURCE OF OXYGEN High flow nasal cannula Normal [facility] Comment on above: Result Comment: 5L Performed By: #### L AB15 #### Latin American Studies Professor: SUZIE COOK ([id number]) [facility] ([facility]) [address] [place] [address] Basic metabolic 1998 panelon 03-28-2023 Anion gap [Moles/Vol] 7 mmol/L 3 - 13 mmol/L [facility] Calcium [Mass/Vol] 8.7 mg/dL 8.4 - 10. 4 mg/dL [facility] Chloride [Moles/Vol] 104 mmol/L 98 - 10 7 mmol/L [facility] CO2 [Moles/Vol] 25 mmol/L 22 - 30 mmol/L [facility] Creatinine [Mass/Vol] 1.03 mg/dL 0.66 - 1.25 mg/dL [facility] GFR/1.73 sq M.predicted MDRD (S/P/Bld) [Vol rate/Area] 81.1 mL/min/{1.73_m2} - PINF [facility] Glucose [Mass/Vol] 69 mg/dL Low 70 - 100 mg/dL [facility] Interpretation and review of laboratory results Abnormal [facility] Potassium [Moles/Vol] 3.3 mmol/L Low 3.5 - 5.1 mmol/L [facility] Sodium [Moles/Vol] 136 mmol/L 135 - 145 mmol/L [facility] Urea nitrogen [Mass/Vol] 33 mg/dL High 9 - 20 mg/dL [facility] Anion gap [Moles/Vol] 10 mmol/L 3 - 13 mmol/L [facility] Calcium [Mass/Vol] 8.9 mg/dL 8.4 - 10. 4 mg/dL [facility] Chloride [Moles/Vol] 104 mmol/L 98 - 10 7 mmol/L [facility] CO2 [Moles/Vol] 22 mmol/L 22 - 30 mmol/L [facility] Creatinine [Mass/Vol] 1.00 mg/dL 0.66 - 1.25 mg/dL [facility] GFR/1.73 sq M.predicted MDRD (S/P/Bld) [Vol rate/Area] 84.0 mL/min/{1.73_m2} - PINF [facility] Glucose [Mass/Vol] 85 mg/dL 70 - 100 mg/dL [facility] Interpretation and review of laboratory results Abnormal [facility] Potassium [Moles/Vol] 3.7 mmol/L 3.5 - 5.1 mmol/L [facility] Sodium [Moles/Vol] 136 mmol/L 135 - 145 mmol/L [facility] Urea nitrogen [Mass/Vol] 32 mg/dL High 9 - 20 mg/dL [facility] CALCIUM, IONIZEDon 3 CALCIUM IONIZED 4.30 mg/dL Normal 4.30-5.20 [facility] Comment on above: Order Comment: Obtai n PRN and check ionized Ca level if serum Ca level less than 8.0 Performed By: #### L AB15 #### Latin American Studies Professor: SUZIE COOK ([id number]) [facility] ([facility]) [address] [place] [address] PH, IONIZED CALCIUM 7.49 High 7.31-7.46 [facility] Comment on above: Order Comment: Obtai n PRN and check ionized Ca level if serum Ca level less than 8.0 Performed By: #### L AB15 #### Latin American Studies Professor: SUZIE COOK ([id number]) [facility]) [address] [place] [address] CBC (HEMOGRAM)on 03-28-2023 Erythrocyte distribution width (RBC) [Ratio] 15.2 % High 11.5-14.5 [facility] Comment on above: Performed By: #### L AB15 #### Latin American Studies Professor: SUZIE COOK ([id number]) [facility]) [address] [place] [address] ERYTHROCYTE MEAN CORPUSCULAR HEMOGLOBIN CONCENTRATION (G/DL) BY AUTOMATED 33.9 % Normal 32.0-36.0 [facility] Comment on above: Performed By: #### L AB15 #### Latin American Studies Professor: SUZIE COOK ([id number]) [facility]) [address] [place] [address] Hematocrit (Bld) [Volume fraction] 27.3 % Low 40.0-52.0 [facility] Comment on above: Performed By: #### L AB15 #### Latin American Studies Professor: SUZIE COOK ([id number]) [facility]) [address] [place] [address] Hemoglobin (Bld) [Mass/Vol] 9.3 g/dL Low 13.0-18.0 [facility] Comment on above: Performed By: #### L AB15 #### Latin American Studies Professor: SUZIE COOK ([id number]) [facility]) [address] [place] [address] MCH (RBC) [Entitic mass] 31.6 pg Normal 26.0-34.0 [facility] Comment on above: Performed By: #### L AB15 #### Latin American Studies Professor: SUZIE COOK ([id number]) [facility]) [address] [place] [address] MCV (RBC) [Entitic vol] 93.2 fL Normal 80.0-98.0 [facility] Comment on above: Performed By: #### L AB15 #### Latin American Studies Professor: SUZIE COOK ([id number]) [facility] ([facility]) [address] [place] [address] Platelet mean volume (Bld) [Entitic vol] 9.0 fL Normal 7.4-12.4 [facility] Comment on above: Performed By: #### L AB15 #### Latin American Studies Professor: SUZIE COOK ([id number]) [facility] ([facility]) [address] [place] [address] Platelets (Bld) [#/Vol] 138 10*3/uL Low 140-440 [facility] Comment on above: Performed By: #### L AB15 #### Latin American Studies Professor: SUZIE COOK ([id number]) [facility] ([facility]) [address] [place] [address] RBC (Bld) [#/Vol] 2.93 10*6/uL Low 4.40-5.90 [facility] Comment on above: Performed By: #### L AB15 #### Latin American Studies Professor: SUZIE COOK ([id number]) [facility] ([facility]) [address] [place] [address] WBC (Bld) [#/Vol] 15.4 10*3/uL High 3.6-10.7 [facility] Comment on above: Performed By: #### L AB15 #### Latin American Studies Professor: SUZIE COOK ([id number]) [facility] ([facility]) [address] [place] [address] CBC panel Auto (Bld)Ordered By: Louis Cook on 03-28-2023 Erythrocyte distribution width (RBC) [Ratio] 15.2 % High 11.5 - 14.5 % [facility] Hematocrit (Bld) [Volume fraction] 27.3 % Low 40.0 - 52.0 % [facility] Hemoglobin (Bld) [Mass/Vol] 9.3 g/dL Low 13.0 - 18.0 g/dL [facility] Interpretation and review of laboratory results Abnormal [facility] MCH (RBC) [Entitic mass] 31.6 pg 26. 0 - 34.0 pg [facility] MCHC (RBC) [Mass/Vol] 33.9 % 32.0 - 36.0 % [facility] MCV (RBC) [Entitic vol] 93.2 fL 80.0 - 98.0 fL [facility] Platelet mean volume (Bld) [Entitic vol] 9.0 fL 7.4 - 12.4 fL [facility] Platelets (Bld) [#/Vol] 138 10*3/uL Low 140 - 440 10*3/uL [facility] RBC (Bld) [#/Vol] 2.93 10*6/uL Low 4.40 - 5.9 0 10*6/uL [facility] WBC (Bld) [#/Vol] 15.4 10*3/uL High 3.6 - 10.7 10*3/uL [facility] Calcium.ionized [Moles/Vol]o n 03-28-2023 Calcium.ionized (Bld) [Moles/Vol] 4.30 mg/dL 4.30 - 5.20 mg/dL [facility] Interpretation and review of laboratory results Abnormal [facility] PH, IONIZED CALCIUM 7.49 High 7.31 - 7.46 [facility] HEPATIC FUNCTION PANELon Albumin [Mass/Vol] 4.0 g/dL Normal 3.5-5.0 [facility] Comment on above: Performed By: #### L AB15 #### Latin American Studies Professor: SUZIE COOK ([id number]) [facility] ([facility]) [address] [place] [address] ALP [Catalytic activity/Vol] 62 U/L Normal 38-126 [facility] Comment on above: Performed By: #### L AB15 #### Latin American Studies Professor: SUZIE COOK ([id number]) [facility] ([facility]) [address] [place] [address] [place] ALT [Catalytic activity/Vol] 238 U/L High 0-49 [facility] Comment on above: Performed By: #### L AB15 #### Latin American Studies Professor: SUZIE COOK ([id number]) [facility] ([facility]) [address] [place] [address] [place] AST [Catalytic activity/Vol] 168 U/L High 15-46 [facility] Comment on above: Performed By: #### L AB15 #### Latin American Studies Professor: SUZIE COOK ([id number]) [facility] ([facility]) [address] [place] [address] Bilirubin [Mass/Vol] 1.4 mg/dL High 0.2-1.3 [facility] Comment on above: Performed By: #### L AB15 #### Latin American Studies Professor: SUZIE COOK ([phone]) [facility] ([facility]) [address] [place] [address] Bilirubin.indirect [Mass/Vol] 0.0 mg/dL Normal 0.0-0.3 [facility] Comment on above: Performed By: #### L AB15 #### Latin American Studies Professor: SUZIE COOK ([id number]) [facility] ([facility]) [address] [place] [address] Protein [Mass/Vol] 6.3 g/dL Normal 6.3-8.2 [facility] Comment on above: Performed By: #### L AB15 #### Latin American Studies Professor: USZIE COOK ([id number]) [facility] ([facility]) [address] [place] [address] Hepatic function 2000 panelo n 03-28-2023 Albumin [Mass/Vol] 4.0 g/dL 3.5 - 5.0 g/dL [facility] ALP [Catalytic activity/Vol] 62 U/L 38 - 126 U/L [facility] ALT [Catalytic activity/Vol] 238 U/L High 0 - 49 U/L [facility] AST [Catalytic activity/Vol] 168 U/L High 15 - 46 U/L [facility] Bilirubin [Mass/Vol] 1.4 mg/dL High 0.2 - 1 .3 mg/dL [facility] Bilirubin.conjugated [Mass/Vol] 0.0 mg/dL 0.0 - 0.3 mg/dL [facility] Interpretation and review of laboratory results Abnormal [facility] th Protein [Mass/Vol] 6.3 g/dL 6.3 - 8.2 g/dL [facility] LACTIC ACID WITH REFLEXon Lactate [Moles/Vol] 1.0 mmol/L Normal 0.7-2.0 [facility] Comment on above: Performed By: #### L AB15 #### Latin American Studies Professor: SUZIE COOK ([id number]) [facility] ([facility]) [address] [place] [address] Laboratory - Chemistry and C hemistry - challengeon 03-28-2023 Magnesium [Mass/Vol] 2.3 mg/dL 1.6 - 2 .3 mg/dL [facility] Lactate [Moles/Vol] 1.0 mmol/L 0.7 - 2. 0 mmol/L [facility] Base excess Calc (Bld) [Moles/Vol] 1.8 mmol/L -3.0 - 3.0 mmol/L [facility] CO2 (Bld) [Partial pressure] 31.8 mm[Hg] Low - PINF [facility] CO2 [Moles/Vol] 25.6 mmol/L 23.0 - 27.0 mmol/L [facility] HCO3 (Bld) [Moles/Vol] 24.6 mmol/L 21.0 - 25.0 mmol/L [facility] Oxygen (Bld) [Partial pressure] 68.8 mm[Hg] Low [facility] pH (Bld) 7.506 [pH] High 7.350 - 7.450 [facility] Laboratory - Hematology and Cell countson 03-28-2023 Hemoglobin (Bld) [Mass/Vol] 9.9 g/dL Screen Only [facility] MAGNESIUMon 03-28-2023 Magnesium [Mass/Vol] 2.3 mg/dL Normal 1.6-2.3 [facility] Comment on above: Performed By: #### L AB15 #### Latin American Studies Professor: SUZIE COOK ([id number]) [facility] ([facility]) [address] [place] [address] No Panel Informationon 03-28 Interpretation and review of laboratory results Normal [facility] Interpretation and review of laboratory results Abnormal [facility] Source Of Oxygen High flow nasal cannula [facility] Progress Noteon 03-28-2023 Progress Note Attestation signed by Mikhail Casillas MD at 03/28/2023 2:26 PM I have personally performed a face to face diagnostic evaluation on this patient today on 03/28/23. Labs, imaging studies, and electronic medical record notes on [employer] have been reviewed by me. This note documented and discussed by the []licensed mortgage loan officer []Fellow [x] GEOVANNY reflects my history, exam and medical decision making. I have reviewed and agree with the care plan. Changes were made in the orders as necessary. ROS documentation was reviewed and negative unless otherwise stated in the HPI. My history, exam, assessment and plan are as follows: Time spent for coordination of care: a subsequent visit: 50 minutes (Level III) Awake, in chair, denies pain, but oriented x 2 name and city only Heart RRR, lungs symmetric anteriorly without wheezes Severe CAD 03/25 s/p CABG, AtriClip Alcohol use disorder and withdrawal Pulmonary edema Hx Afib, currently sinus HTN Expected acute blood loss anemia psot op Tobacco and alcohol use Hx AAA, aortoiliac endograft and b/l renal artery stents Precedex drip, CIWA with ativan prn Lasix diuresis as tolerated Wean O2 as tolerated Cardiothoracic Surgery/CCM Progress Note PATIENT NAME: Regan Coughlin DATE: 03/28/23 HPI: 63 yo male with PMH of CAD & STEMI s/p PCI (RCA in 2019), Afib (on Eliquis), AAA s/p fenestrated EVAR with RTOR for bilateral groin hematomas, hematuria, HTN, HPL, ETOH, current smoker. He presented to [facility] ED on 01/07/23 with worsening SOB x3 weeks. Echo shoed LVEF 50% with wall motion abnormalities. He did develop Afib RVR during hospitalization and reverted back to SR. Had a heart cath on 02/16/23 which showed multivessel CAD involving LM, prox LAD, and RCA. Surgery/Procedure: 03/25/23: CABG x4, MAZE, LAAL with atriclip, and LLE EVH with Dr. Marquezinal Interval History: 03/28/23, POD# 3: Confused overnight. Dose of ativan given -->improved. EKGs changes noted on tele-will review with surgeon. Responded to diuretics yesterday - 3235cc/24hrs. Hgb stable post transfusion. Still hypertensive and maxed on nipride; wore NIV overnight. On 8L highflow currently. Review of Systems Constitutional: Positive for diaphoresis. Negative for fatigue and fever. Respiratory: Positive for cough (thick de leon secretion). Negative for shortness of breath and wheezing. Cardiovascular: Negative for chest pain, palpitations and leg swelling. Gastrointestinal: Negative for abdominal distention, constipation and diarrhea. Skin: Negative for color change, pallor and rash. Psychiatric/Behavior al: Positive for confusion. Objective: CT output cc/24hrs: 3235 UO cc/24hrs: 605 Last BM Date: 03/28/23 Vitals: BP: 128/63, MAP (mmHg): 82, BP Method: Automatic Heart Rate: 80 Resp: 14 Temp: 37.5 ?C (99.5 ?F), Temp Source: Bladder BMI (Calculated): 25.95 ABG Recent Labs 03/25/23 1546 03/27/23204903/28/23 0413 PHART 7.387 7.522* 7.506* PFE9IQH 37.3 29.6* 31.8* PO2ART 75.0* 63.1* 68.8* EFM3IXF 21.9 23.7 24.6 [id number] 94.5* 92.1* 94.1* BEART -2.8 1.5 1.8 Pacer Wires: V wires CXR: BMP: Recent Labs 03/25/23 1113 03/26/23 0413 03/26/23 1155 03/27/23 0234 03/27/23 1226 03/27/23211603/28/23411 NA 137 138 < > -- 133* 136 136 K 3.9 4.6 < > -- 3.5 4.0 3.7 CL 107 105 < > -- 104 103 104 CO2 21* 19* < > -- 22 24 22 BUN 15 24* < > -- 32* 33* 32* CREATININE 1.04 1.46* < > -- 0.99 1.04 1.00 CALCIUM 8.5 8.8 < > -- 8.7 9.4 8.9 MG 3.5* 2.8* -- 2.4* -- -- 2.3 PHOS 4.5 -- -- -- -- -- -- < > = values in this interval not displayed. CBC: Recent Labs 03/26/23 0413 03/27/23 0234 03/27/23 1226 03/27/23204903/28/2341103/28/23412 WBC 9.5 13.0* -- -- 15.4* -- HGB 7.6* 6.4* 9.1* 10.5 9.3* 9.9 HCT 22.6* 18.9* 27.1* -- 27.3* -- PLT 119* 109* -- -- 138* -- MCV 94.0 93.7 -- -- 93.2 -- RDW 14.3 14.4 -- -- 15.2* -- INR: Recent Labs 03/25/23 1113 03/26/2341203/27/23233 INR 1.3* 1.2* 1.6* Physical Exam Cardiovascular: Rate and Rhythm: Normal rate and regular rhythm. Heart sounds: Normal heart sounds. No murmur heard. No friction rub. Pulmonary: Effort: Pulmonary effort is normal. Breath sounds: Examination of the right-lower field reveals decreased breath sounds. Decreased breath sounds present. Skin: General: Skin is warm and dry. Capillary Refill: Capillary refill takes less than 2 seconds. Findings: Bruising and ecchymosis present. Neurological: Mental Status: He is alert. Psychiatric: Behavior: Behavior is cooperative. Assessment: CAD s/p CABGx4 03/25 Afib (on Eliquis) s/p MAZE 03/25 AAA s/p fenestrated EVAR HTN HPL ETOH Right effusion - reny (more content not included)... Normal [facility] XR CHEST 1 VIEWon 03-28-2023 XR CHEST 1 VIEW [facility] 1960 [id number] Exam Date/Time: 03/28/2023 05:19 Procedure: XR CHEST 1 VIEW Ordering Provider: [facility] JENNIFER Reason For Exam: Shortness of breath Clinical History: Shortness of breath Comparison: 03/27/2023 Technique: Single AP radiograph of the chest. Findings: Mediastinal and left basilar chest tubes. Unchanged cardiomegaly with median sternotomy wires, mediastinal surgical clips, and left atrial appendage clip. Pulmonary vasculature is distended and indistinct. Hazy right basilar opacity obscures the right hemidiaphragm with meniscus sign. No sizable pneumothorax. IMPRESSION: Interstitial pulmonary edema with moderate right pleural effusion, similar to prior study. Report Dictated on Electronically Signed By: Lorri Espinal DR Electronically Signed Date/Time: 03/28/2023 6:07 AM EST Normal [facility] XR Chest Single viewon 03-28 [facility] Radiology Study observation (narrative) [facility] XR Chest Single viewOrdered By: Lorri Espinal on 03-28-2023 [facility] Work Phone: BASIC METABOLIC PANELon 12-0 Anion gap [Moles/Vol] 7 mmol/L Normal 3-13 [facility] Comment on above: Performed By: #### L AB15 #### Latin American Studies Professor: SUZIE COOK ([id number]) [facility] ([facility]) [address] [place] [address] Calcium [Mass/Vol] 8.7 mg/dL Normal 8.4-10.4 [facility] Comment on above: Performed By: #### L AB15 #### Latin American Studies Professor: SUZIE COOK ([id number]) [facility] ([facility]) [address] [place] [address] [place] Chloride [Moles/Vol] 104 mmol/L Normal 98-107 [facility] Comment on above: Performed By: #### L AB15 #### Latin American Studies Professor: SUZIE COOK ([id number]) [facility] ([facility] [address] [place] [address] [place] CO2 [Moles/Vol] 22 mmol/L Normal 22-30 [facility] Comment on above: Performed By: #### L AB15 #### Latin American Studies Professor: SUZIE COOK ([id number]) [facility] [address] [place] [address] [place] Creatinine [Mass/Vol] 0.99 mg/dL Normal 0.66-1.25 [facility] Comment on above: Performed By: #### L AB15 #### Latin American Studies Professor: SUZIE COOK ([phone]) [facility] ([facility]) [address] [place] [address] [place] GLOMERULAR FILTRATION RATE ML/MIN/1.73 SQ M.PREDICTED 85.1 mL/min/1.73m*2 Normal >60.0 [facility] Comment on above: Result Comment: Calc ulation based on the Chronic Kidney Disease Epidemiology Collaboration (CKD-EPI) equation refit without adjustment for race Performed By: #### L AB15 #### Latin American Studies Professor: SUZIE COOK ([id number]) [facility] ([facility] [address] [place] [address] [place] Glucose [Mass/Vol] 113 mg/dL High 70-100 [facility] Comment on above: Performed By: #### L AB15 #### Latin American Studies Professor: SUZIE COOK ([id number]) [facility]) [address] [place] [address] [place] Potassium [Moles/Vol] 3.5 mmol/L Normal 3.5-5.1 [facility] Comment on above: Performed By: #### L AB15 #### Latin American Studies Professor: SUZIE COOK ([id number]) [facility]) [address] [place] [address] [place] Sodium [Moles/Vol] 133 mmol/L Low 135-145 [facility] Comment on above: Performed By: #### L AB15 #### Latin American Studies Professor: SUZIE COOK ([id number]) [facility] ([facility]) [address] [place] [address] Urea nitrogen [Mass/Vol] 32 mg/dL High 9-20 [facility] Comment on above: Performed By: #### L AB15 #### Latin American Studies Professor: SUZIE COOK ([id number]) [facility] ([facility]) [address] [place] [address] Anion gap [Moles/Vol] 5 mmol/L Normal 3-13 [facility] Comment on above: Performed By: #### L AB15 #### Latin American Studies Professor: SUZIE COOK ([id number]) [facility] [address] [place] [address] Calcium [Mass/Vol] 7.6 mg/dL Low 8.4-10.4 [facility] Comment on above: Performed By: #### L AB15 #### Latin American Studies Professor: SUZIE COOK ([id number]) [facility] ([facility]) [address] [place] [address] [place] Chloride [Moles/Vol] 105 mmol/L Normal 98-107 [facility] Comment on above: Performed By: #### L AB15 #### Latin American Studies Professor: SUZIE COOK ([id number]) [facility] ([facility]) [address] [place] [address] [place] CO2 [Moles/Vol] 23 mmol/L Normal 22-30 [facility] Comment on above: Performed By: #### L AB15 #### Latin American Studies Professor: SUZIE COOK ([id number]) [facility] [address] [place] [address] Creatinine [Mass/Vol] 1.15 mg/dL Normal 0.66-1.25 [facility] Comment on above: Performed By: #### L AB15 #### Latin American Studies Professor: SUZIE COOK ([id number]) [facility] ([facility]) [address] [place] [address] [place] GLOMERULAR FILTRATION RATE ML/MIN/1.73 SQ M.PREDICTED 71.1 mL/min/1.73m*2 Normal >60.0 [facility] Comment on above: Result Comment: Calc ulation based on the Chronic Kidney Disease Epidemiology Collaboration (CKD-EPI) equation refit without adjustment for race Performed By: #### L AB15 #### Latin American Studies Professor: SUZIE COOK ([id number]) [facility] ([facility]) [address] [place] [address] Glucose [Mass/Vol] 114 mg/dL High 70-100 [facility] Comment on above: Performed By: #### L AB15 #### Latin American Studies Professor: SUZIE COOK ([id number]) [facility]) [address] [place] [address] Potassium [Moles/Vol] 3.6 mmol/L Normal 3.5-5.1 [facility] Comment on above: Performed By: #### L AB15 #### Latin American Studies Professor: SUZIE COOK ([id number]) [facility] ([facility]) [address] [place] [address] Sodium [Moles/Vol] 133 mmol/L Low 135-145 [facility] Comment on above: Performed By: #### L AB15 #### Latin American Studies Professor: SUZIE COOK ([id number]) [facility] ([facility]) [address] [place] [address] Urea nitrogen [Mass/Vol] 29 mg/dL High 9-20 [facility] Comment on above: Performed By: #### L AB15 #### Latin American Studies Professor: SUZIE COOK ([id number]) [facility] ([facility]) [address] [place] [address] BLOOD GAS ARTERIALon 023 Base excess Calc (Bld) [Moles/Vol] 1.5 mmol/L Normal -3.0-3.0 [facility] Comment on above: Performed By: #### L AB15 #### Latin American Studies Professor: SUZIE COOK ([id number]) [facility] ([facility]) [address] [place] [address] [place] CO2 [Moles/Vol] 24.6 mmol/L Normal 23.0-27.0 [facility] Comment on above: Performed By: #### L AB15 #### Latin American Studies Professor: SUZIE COOK ([id number]) [facility] ([facility]) [address] [place] [address] HCO3 (Bld) [Moles/Vol] 23.7 mmol/L Normal 21.0-25.0 [facility] Comment on above: Performed By: #### L AB15 #### Latin American Studies Professor: SUZIE COOK ([id number]) [facility] [address] [place] [address] Hemoglobin (Bld) [Mass/Vol] 10.5 g/dL Normal Screen Only [facility] Comment on above: Performed By: #### L AB15 #### Latin American Studies Professor: SUZIE COOK ([id number]) [facility] [address] [place] [address] OXYGEN SATURATION (%) IN ARTERIAL BLOOD 92.1 % Low 95.0-100.0 [facility] Comment on above: Performed By: #### L AB15 #### Latin American Studies Professor: SUZIE COOK ([id number]) [facility] ([facility]) [address] [place] [address] PCO2 ARTERIAL 29.6 mm Hg Low >35.0-<45.0 [facility] Comment on above: Performed By: #### L AB15 #### Latin American Studies Professor: SUZIE COOK ([id number]) [facility] [address] [place] [address] PH ARTERIAL 7.522 High 7.350-7.450 [facility] Comment on above: Performed By: #### L AB15 #### Latin American Studies Professor: SUZIE COOK ([id number]) [facility] [address] [place] [address] PO2 ARTERIAL 63.1 mm Hg Low 80.0-100.0 [facility] Comment on above: Performed By: #### L AB15 #### Latin American Studies Professor: SUZIE COOK ([phone]) [facility] [address] [place] [address] SOURCE OF OXYGEN High flow nasal cannula Normal [facility] Comment on above: Result Comment: 10 Performed By: #### L AB15 #### Latin American Studies Professor: SUZIE COOK ([id number]) [facility] [address] [place] [address] Basic metabolic 1998 panelon 03-27-2023 Anion gap [Moles/Vol] 7 mmol/L 3 - 13 mmol/L [facility] Calcium [Mass/Vol] 8.7 mg/dL 8.4 - 10. 4 mg/dL [facility] Chloride [Moles/Vol] 104 mmol/L 98 - 10 7 mmol/L [facility] CO2 [Moles/Vol] 22 mmol/L 22 - 30 mmol/L [facility] Creatinine [Mass/Vol] 0.99 mg/dL 0.66 - 1.25 mg/dL [facility] GFR/1.73 sq M.predicted MDRD (S/P/Bld) [Vol rate/Area] 85.1 mL/min/{1.73_m2} - PINF [facility] Glucose [Mass/Vol] 113 mg/dL High 70 - 100 mg/dL [facility] Interpretation and review of laboratory results Abnormal [facility] Potassium [Moles/Vol] 3.5 mmol/L 3.5 - 5.1 mmol/L [facility] Sodium [Moles/Vol] 133 mmol/L Low 135 - 145 mmol/L [facility] Urea nitrogen [Mass/Vol] 32 mg/dL High 9 - 20 mg/dL [facility] Anion gap [Moles/Vol] 5 mmol/L 3 - 13 mmol/L [facility] Calcium [Mass/Vol] 7.6 mg/dL Low 8.4 - 10. 4 mg/dL [facility] Chloride [Moles/Vol] 105 mmol/L 98 - 10 7 mmol/L [facility] CO2 [Moles/Vol] 23 mmol/L 22 - 30 mmol/L [facility] Creatinine [Mass/Vol] 1.15 mg/dL 0.66 - 1.25 mg/dL [facility] GFR/1.73 sq M.predicted MDRD (S/P/Bld) [Vol rate/Area] 71.1 mL/min/{1.73_m2} - PINF [facility] Glucose [Mass/Vol] 114 mg/dL High 70 - 100 mg/dL [facility] Interpretation and review of laboratory results Abnormal [facility] Potassium [Moles/Vol] 3.6 mmol/L 3.5 - 5.1 mmol/L [facility] Sodium [Moles/Vol] 133 mmol/L Low 135 - 145 mmol/L [facility] Urea nitrogen [Mass/Vol] 29 mg/dL High 9 - 20 mg/dL [facility] CALCIUM, IONIZEDon CALCIUM IONIZED 4.10 mg/dL Low 4.30-5.20 [facility] Comment on above: Order Comment: Obtai n PRN and check ionized Ca level if serum Ca level less than 8.0 Performed By: #### L AB15 #### Latin American Studies Professor: SUZIE COOK ([id number]) [facility]) [address] [place] [address] PH, IONIZED CALCIUM 7.41 Normal 7.31-7.46 [facility] Comment on above: Order Comment: Obtai n PRN and check ionized Ca level if serum Ca level less than 8.0 Performed By: #### L AB15 #### Latin American Studies Professor: SUZIE COOK ([id number]) [facility]) [address] [place] [address] CBC (HEMOGRAM)on 03-27-2023 Erythrocyte distribution width (RBC) [Ratio] 14.4 % Normal 11.5-14.5 [facility] Comment on above: Performed By: #### L AB15 #### Latin American Studies Professor: SUZIE COOK ([id number]) [facility]) [address] [place] [address] ERYTHROCYTE MEAN CORPUSCULAR HEMOGLOBIN CONCENTRATION (G/DL) BY AUTOMATED 33.9 % Normal 32.0-36.0 [facility] Comment on above: Performed By: #### L AB15 #### Latin American Studies Professor: SUZIE COOK ([id number]) [facility]) [address] [place] [address] Hematocrit (Bld) [Volume fraction] 18.9 % Low 40.0-52.0 [facility] Comment on above: Performed By: #### L AB15 #### Latin American Studies Professor: SUZIE COOK ([id number]) [facility]) [address] [place] [address] Hemoglobin (Bld) [Mass/Vol] 6.4 g/dL Critically low 13.0-18.0 [facility] Comment on above: Result Comment: I-An emia Performed By: #### L AB15 #### Latin American Studies Professor: SUZIE COOK ([id number]) [facility] ([facility]) [address] [place] [address] MCH (RBC) [Entitic mass] 31.8 pg Normal 26.0-34.0 [facility] Comment on above: Performed By: #### L AB15 #### Latin American Studies Professor: SUZIE COOK ([id number]) [facility] ([facility]) [address] [place] [address] MCV (RBC) [Entitic vol] 93.7 fL Normal 80.0-98.0 [facility] Comment on above: Performed By: #### L AB15 #### Latin American Studies Professor: SUZIE COOK ([id number]) [facility]) [address] [place] [address] Platelet mean volume (Bld) [Entitic vol] 8.9 fL Normal 7.4-12.4 [facility] Comment on above: Performed By: #### L AB15 #### Latin American Studies Professor: SUZIE COOK ([id number]) [facility] ([facility]) [address] [place] [address] Platelets (Bld) [#/Vol] 109 10*3/uL Low 140-440 [facility] Comment on above: Performed By: #### L AB15 #### Latin American Studies Professor: SUZIE COOK ([id number]) [facility] ([facility]) [address] [place] [address] [place] RBC (Bld) [#/Vol] 2.02 10*6/uL Low 4.40-5.90 [facility] Comment on above: Performed By: #### L AB15 #### Latin American Studies Professor: SUZIE COOK ([id number]) [facility] ([facility]) [address] [place] [address] WBC (Bld) [#/Vol] 13.0 10*3/uL High 3.6-10.7 [facility] Comment on above: Performed By: #### L AB15 #### Latin American Studies Professor: SUZIE COOK ([id number]) [facility] ([facility]) [address] [place] [address] CBC panel Auto (Bld)Ordered By: Elliot Herman on 03-27-2023 Erythrocyte distribution width (RBC) [Ratio] 14.4 % 11.5 - 14.5 % [facility] Hematocrit (Bld) [Volume fraction] 18.9 % Low 40.0 - 52.0 % [facility] Hemoglobin (Bld) [Mass/Vol] 6.4 g/dL Critically low 13.0 - 18.0 g/dL [facility] Interpretation and review of laboratory results Abnormal [facility] MCH (RBC) [Entitic mass] 31.8 pg 26. 0 - 34.0 pg [facility] MCHC (RBC) [Mass/Vol] 33.9 % 32.0 - 36.0 % [facility] MCV (RBC) [Entitic vol] 93.7 fL 80.0 - 98.0 fL [facility] Platelet mean volume (Bld) [Entitic vol] 8.9 fL 7.4 - 12.4 fL [facility] Platelets (Bld) [#/Vol] 109 10*3/uL Low 140 - 440 10*3/uL [facility] RBC (Bld) [#/Vol] 2.02 10*6/uL Low 4.40 - 5.9 0 10*6/uL [facility] WBC (Bld) [#/Vol] 13.0 10*3/uL High 3.6 - 10.7 10*3/uL [facility] COMPREHENSIVE METABOLIC PANE [place]ito 03-27-2023 Albumin [Mass/Vol] 4.5 g/dL Normal 3.5-5.0 [facility] Comment on above: Performed By: #### L AB15 #### Latin American Studies Professor: SUZIE COOK ([id number]) [facility] ([facility]) [address] [place] [address] ALP [Catalytic activity/Vol] 70 U/L Normal 38-126 [facility] Comment on above: Performed By: #### L AB15 #### Latin American Studies Professor: SUZIE COOK ([id number]) [facility] ([facility]) [address] [place] [address] ALT [Catalytic activity/Vol] 270 U/L High 0-49 [facility] Comment on above: Performed By: #### L AB15 #### Latin American Studies Professor: SUZIE COOK ([id number]) [facility] ([facility]) [address] [place] [address] Anion gap [Moles/Vol] 9 mmol/L Normal 3-13 [facility] Comment on above: Performed By: #### L AB15 #### Latin American Studies Professor: SUZIE COOK ([id number]) [facility] ([facility]) [address] [place] [address] AST [Catalytic activity/Vol] 206 U/L High 15-46 [facility] Comment on above: Performed By: #### L AB15 #### Latin American Studies Professor: SUZIE COOK ([id number]) [facility] ([facility]) [address] [place] [address] [place] Bilirubin [Mass/Vol] 1.7 mg/dL High 0.2-1.3 [facility] Comment on above: Performed By: #### L AB15 #### Latin American Studies Professor: SUZIE COOK ([id number]) [facility] ([facility]) [address] [place] [address] [place] Calcium [Mass/Vol] 9.4 mg/dL Normal 8.4-10.4 [facility] Comment on above: Performed By: #### L AB15 #### Latin American Studies Professor: SUZIE COOK ([id number]) [facility] ([facility]) [address] [place] [address] [place] Chloride [Moles/Vol] 103 mmol/L Normal 98-107 [facility] Comment on above: Performed By: #### L AB15 #### Latin American Studies Professor: SUZIE COOK ([id number]) [facility] [address] [place] [address] CO2 [Moles/Vol] 24 mmol/L Normal 22-30 [facility] Comment on above: Performed By: #### L AB15 #### Latin American Studies Professor: SUZIE COOK ([id number]) [facility]) [address] [place] [address] Creatinine [Mass/Vol] 1.04 mg/dL Normal 0.66-1.25 [facility] Comment on above: Performed By: #### L AB15 #### Latin American Studies Professor: SUZIE COOK ([id number]) [facility] ([facility]) [address] [place] [address] [place] GLOMERULAR FILTRATION RATE ML/MIN/1.73 SQ M.PREDICTED 80.2 mL/min/1.73m*2 Normal >60.0 [facility] Comment on above: Result Comment: Calc ulation based on the Chronic Kidney Disease Epidemiology Collaboration (CKD-EPI) equation refit without adjustment for race Performed By: #### L AB15 #### Latin American Studies Professor: SUZIE COOK ([id number]) [facility] [address] [place] [address] [place] Glucose [Mass/Vol] 94 mg/dL Normal 70-100 [facility] Comment on above: Performed By: #### L AB15 #### Latin American Studies Professor: SUZIE COOK ([id number]) [facility] ([facility]) [address] [place] [address] [place] Potassium [Moles/Vol] 4.0 mmol/L Normal 3.5-5.1 [facility] Comment on above: Performed By: #### L AB15 #### Latin American Studies Professor: SUZIE [id number]) [facility] [address] [place] [address] [place] Protein [Mass/Vol] 6.9 g/dL Normal 6.3-8.2 [facility] Comment on above: Performed By: #### L AB15 #### Latin American Studies Professor: SUZIE COOK ([id number]) [facility]) [address] [place] [address] Sodium [Moles/Vol] 136 mmol/L Normal 135-145 [facility] Comment on above: Performed By: #### L AB15 #### Latin American Studies Professor: SUZIE COOK ([id number]) [facility] [address] [place] [address] Urea nitrogen [Mass/Vol] 33 mg/dL High 9-20 [facility] Comment on above: Performed By: #### L AB15 #### Latin American Studies Professor: SUZIE COOK ([id number]) [facility] [address] [place] [address] Calcium.ionized [Moles/Vol]O rdered By: Irais Jiménez on 03-27-2023 Calcium.ionized (Bld) [Moles/Vol] 4.10 mg/dL Low 4.30 - 5.20 mg/dL [facility] Interpretation and review of laboratory results Abnormal [facility] PH, IONIZED CALCIUM 7.41 7.31 - 7.46 [facility] Comprehensive metabolic 1998 panelon 03-27-2023 Albumin [Mass/Vol] 4.5 g/dL 3.5 - 5.0 g/dL [facility] ALP [Catalytic activity/Vol] 70 U/L 38 - 126 U/L [facility] ALT [Catalytic activity/Vol] 270 U/L High 0 - 49 U/L [facility] Anion gap [Moles/Vol] 9 mmol/L 3 - 13 mmol/L [facility] AST [Catalytic activity/Vol] 206 U/L High 15 - 46 U/L [facility] Bilirubin [Mass/Vol] 1.7 mg/dL High 0.2 - 1 .3 mg/dL [facility] Calcium [Mass/Vol] 9.4 mg/dL 8.4 - 10. 4 mg/dL [facility] Chloride [Moles/Vol] 103 mmol/L 98 - 10 7 mmol/L [facility] CO2 [Moles/Vol] 24 mmol/L 22 - 30 mmol/L [facility] Creatinine [Mass/Vol] 1.04 mg/dL 0.66 - 1.25 mg/dL [facility] GFR/1.73 sq M.predicted MDRD (S/P/Bld) [Vol rate/Area] 80.2 mL/min/{1.73_m2} - PINF [facility] Glucose [Mass/Vol] 94 mg/dL 70 - 100 mg/dL [facility] Interpretation and review of laboratory results Abnormal [facility] Potassium [Moles/Vol] 4.0 mmol/L 3.5 - 5.1 mmol/L [facility] Protein [Mass/Vol] 6.9 g/dL 6.3 - 8.2 g/dL [facility] Sodium [Moles/Vol] 136 mmol/L 135 - 145 mmol/L [facility] Urea nitrogen [Mass/Vol] 33 mg/dL High 9 - 20 mg/dL [facility] HEMOGLOBIN AND HEMATOCRIT, B LOODon 03-27-2023 Hematocrit (Bld) [Volume fraction] 27.1 % Low 40.0-52.0 [facility] Comment on above: Order Comment: Recom mend 1 hour post transfusion Performed By: #### L AB15 #### Latin American Studies Professor: SUZIE COOK ([id number]) [address] Hemoglobin (Bld) [Mass/Vol] 9.1 g/dL Low 13.0-18.0 [facility] Comment on above: Order Comment: Recom mend 1 hour post transfusion Performed By: #### L AB15 #### Latin American Studies Professor: SUZIE COOK ([id number]) [facility] ([facility]) [address] [place] [address] Hemoglobin (Bld) [Mass/Vol]o n 03-27-2023 Hematocrit (Bld) [Volume fraction] 27.1 % Low 40.0 - 52.0 % [facility] Interpretation and review of laboratory results Abnormal [facility] IDNon 03-27-2023 IDN Problem: Problem Interventions Goal: Assess Nutritional Intake Outcome: Not Progressing Problem: Knowledge Deficit Goal: Patient/family/careg iver demonstrates understanding of disease process, treatment plan, medications, and discharge instructions Outcome: Progressing Problem: Potential for Compromised Skin Integrity Goal: Skin Integrity is Maintained or Improved Outcome: Progressing Goal: Nutritional status is improving Outcome: Progressing Problem: Urinary Incontinence Goal: Perineal skin integrity is maintained or improved Outcome: Progressing Problem: Pain - Adult Goal: Verbalizes/displays adequate comfort level or baseline comfort level Outcome: Progressing Problem: Safety - Adult Goal: Free from fall injury Outcome: Progressing Problem: Discharge Planning Goal: Discharge to home or other facility with appropriate resources Outcome: Progressing The patient is Moderately Unstable - Medium risk of patient condition declining or worsening The patient's goals for the shift include feel better The clinical goals for the shift include wean from nipride gtt Over the shift, the patient did not make progress toward the following goals. Barriers to progression include hypertension. Recommendations to address these barriers include introduce oral medications. Problem: Problem Interventions Goal: Assess Nutritional Intake Outcome: Not Progressing Normal [facility] LACTIC ACID WITH REFLEXon Lactate [Moles/Vol] 2.2 mmol/L High 0.7-2.0 [facility] Comment on above: Performed By: #### L AB15 #### Latin American Studies Professor: SUZIE COOK ([phone]) [facility] ([facility]) [address] [place] [address] LIPASEon 03-27-2023 Lipase [Catalytic activity/Vol] 50 U/L Normal 23-300 [facility] Comment on above: Performed By: #### L AB15 #### Latin American Studies Professor: SUZIE COOK ([id number]) [facility] ([facility]) [address] [place] [address] Laboratory - Chemistry and C hemistry - challengeon 03-27-2023 Lipase [Catalytic activity/Vol] 50 U/L 23 - 300 U/L [facility] Lactate [Moles/Vol] 2.2 mmol/L High 0.7 - 2. 0 mmol/L [facility] Glucose [Mass/Vol] 111 mg/dL High 70 - 100 mg/dL [facility] Glucose [Mass/Vol] 116 mg/dL High 70 - 100 mg/dL [facility] Glucose [Mass/Vol] 121 mg/dL High 70 - 100 mg/dL [facility] TSH Qn 3.317 m[IU]/L [facility] h Magnesium [Mass/Vol] 2.4 mg/dL High 1.6 - 2 .3 mg/dL [facility] Laboratory - Chemistry and C hemistry - challengeOrdered By: Ailyn Foley on 03-27-2023 Base excess Calc (Bld) [Moles/Vol] 1.5 mmol/L -3.0 - 3.0 mmol/L [facility] CO2 (Bld) [Partial pressure] 29.6 mm[Hg] Low - PINF [facility] CO2 [Moles/Vol] 24.6 mmol/L 23.0 - 27.0 mmol/L [facility] HCO3 (Bld) [Moles/Vol] 23.7 mmol/L 21.0 - 25.0 mmol/L [facility] Oxygen (Bld) [Partial pressure] 63.1 mm[Hg] Low [facility] pH (Bld) 7.522 [pH] High 7.350 - 7.450 [facility] Laboratory - Coagulationon 1 05-28-2022 aPTT Coag (PPP) [Time] 36.6 s High 20.0 - 30.5 s [facility] INR Coag (PPP) [Relative time] 1.6 {INR} High 0.9 - 1.1 [facility] PT Coag (Bld) [Time] 16.1 s High 9.0 - 1 2.0 s [facility] Laboratory - Hematology and Cell countsOrdered By: Ailyn Foley on 03-27-2023 Hemoglobin (Bld) [Mass/Vol] 10.5 g/dL Screen Only [facility] - Hematology and Cell countson 03-27-2023 Hemoglobin (Bld) [Mass/Vol] 9.1 g/dL Low 13.0 - 18.0 g/dL [facility] Lipase [Catalytic activity/V ol]on 03-27-2023 Interpretation and review of laboratory results Normal [facility] th MAGNESIUMon 03-27-2023 Magnesium [Mass/Vol] 2.4 mg/dL High 1.6-2.3 [facility] Comment on above: Performed By: #### L AB15 #### Latin American Studies Professor: SUZIE COOK ([id number]) [facility] ([facility]) [address] [place] [address] Magnesium [Mass/Vol]on 03-27 Interpretation and review of laboratory results Abnormal [facility] No Panel Informationon 03-27 [facility] Interpretation and review of laboratory results Abnormal [facility] Interpretation and review of laboratory results Abnormal [facility] Interpretation and review of laboratory results Abnormal [facility] Interpretation and review of laboratory results Abnormal [facility] Blood Expiration Date S [facility] Crossmatch interpretation COMP [facility] Dispense Status Trans[facility]used [facility] Product Blood Type 5100 [facility] PRODUCT CODE [id number] [facility] ABO O [facility] Unit Number [id number]-* [facility] alth Unit RH Positive [facility] Unit Volume 300 mL [facility] Interpretation and review of laboratory results Abnormal [facility] No Panel InformationOrdered By: Ailyn Foley on 03-27-2023 Interpretation and review of laboratory results Abnormal [facility] Source Of Oxygen High flow nasal cannula [facility] PROTIME AND APTTon aPTT Coag (Bld) [Time] 36.6 s High 20.0-30.5 [facility] Comment on above: Performed By: #### L AB15 #### Latin American Studies Professor: SUZIE COOK ([id number]) [facility] [address] [place] [address] INR Coag (PPP) [Relative time] 1.6 {INR} High 0.9-1.1 [facility] Comment on above: Result Comment: Srikanth mmended Anticoagulant Therapy: SEE BELOW ----- INR of 2.0 - 3.0 : - Prophylaxis of Venous Thrombosis (high-risk surgery) - Treatment of Venous Thrombosis - Treatment of Pulmonary Embolism (Includes tissue heart valves, Acute Myocardial Infarction to prevent systemic embolism, Valvular Heart Disease, and Atrial Fibrillation) ----- INR of 2.5 - 3.5 : - Mechanical Prosthetic Valves (high risk) - If oral anticoagulant therapy is used to prevent Myocardial Infarction Performed By: #### L [id number] #### Latin American Studies Professor: SUZIE COOK ([id number]) [facility] ([facility]) [address] [place] [address] PT Coag (PPP) [Time] 16.1 s High 9.0-12.0 [facility] Comment on above: Performed By: #### L AB15 #### Latin American Studies Professor: SUZIE COOK ([id number]) [facility] ([facility]) [address] [place] [address] Progress Noteon 03-27-2023 Progress Note Department of Internal Medicine Division of Endocrinology, Diabetes, & Metabolism Endocrinology Note Patient Name: Regan Coughlin : 1960 AGE: 63 y.o. Room/Bed: [facility]105/[facility] A Admission Date: 03/25/2023 Visit Date: 03/27/2023 Reason for Endocrine Consult: Post op heart surgery Provider/Team Requesting Consult: CTS PCP: Sophie [employer] Professor: No ASSESSMENT: Stress hyperglycemia CAD - S/P CABG Atrial fibrillation HTN HLD PLAN: Patient's blood sugars have been stable and <145 mg/dL over the last 24 hours without requiring any insulin administration. If the patient develops consistently elevated blood sugars on their morning basic metabolic panel, >150 mg/dL for 2 consecutive days, please contact our inpatient consultation team for reevaluation. DC sugar checks and Humalog sliding scale Recent TSH is normal We will sign off at this time. ANTICIPATED ENDOCRINE HOME GOING RECOMMENDATIONS: Optimized for Discharge from Endocrine standpoint: No Home Going Endocrine Rx Recommendations-- None Outpt Follow Up-- PCP SUBJECTIVE/HPI: CHIEF COMPLAINT: CAD for CABG Admission in 12/2022 for shortness of breath , developed A Fib with RVR during this admission. Underwent LHC which showed left main CAD and severe proximal LAD Stenosis. He underwent CABG X 4 on 03/25 Type of DM: na Onset of DM: na Home DM Medication Regimen: none DM control (last A1c/glucose data): 4.2% on current admission Patient seen at bedside Endorses to shortness of breath Appetite is not great. Was able to tolerate Ensure Glucose Date/Time Value Ref Range Status 03/27/2023 05:26 PM 111 (H) 70 - 100 mg/dL Final 03/27/2023 12:15 PM 116 (H) 70 - 100 mg/dL Final 03/27/2023 08:21 AM 121 (H) 70 - 100 mg/dL Final 03/26/2023 05:55 PM 152 (H) 70 - 100 mg/dL Final 03/26/2023 11:38 AM 145 (H) 70 - 100 mg/dL Final 03/26/2023 09:47 AM 132 (H) 70 - 100 mg/dL Final Review of Systems ROS negative except for those mentioned in HPI. OBJECTIVE: Vitals: 03/27/23 1500 03/27/23 1530 03/27/23 1544 03/27/23 1600 BP: BP Location: Patient Position: Pulse: 66 68 66 67 Resp: 17 20 15 (!) 27 Temp: TempSrc: SpO2: 100% 100% 95% 91% Weight: Height: Physical Exam Vitals and nursing note reviewed. Constitutional: Comments: Appears tired HENT: Head: Normocephalic and atraumatic. Cardiovascular: Rate and Rhythm: Normal rate and regular rhythm. Comments: Incision intact Pulmonary: Effort: Tachypnea present. Comments: On nasal cannula oxygen Chest tubes noted Musculoskeletal: General: No swelling. Normal range of motion. Skin: General: Skin is dry. Neurological: General: No focal deficit present. Mental Status: He is oriented to person, place, and time and easily aroused. Psychiatric: Attention and Perception: Attention normal. Behavior: Behavior is slowed. 24 hour intake/output: Intake/Output Summary (Last 24 hours) at 03/27/2023 1745 Last data filed at 03/27/2023 1723 Gross per 24 hour Intake 2878.5 ml Output 2450 ml Net 428.5 ml Diet: Adult diet Regular; 5 carb choices (75 gm/meal) Medications (as per EMR): HomeMeds: Current Outpatient Medications Medication Instructions aspirin 81 mg, Oral, Daily atorvastatin (LIPITOR) 80 mg, Oral, Nightly bacitracin 500 UNIT/GM ointment Topical, See admin instructions, Place on q-tip and swab inside nostrils the night before surgery and AM of surgery. chlorhexidine (Peridex) 0.12 % solution 15 mL, Mouth/Throat, See admin instructions, Swish and spit the night before surgery and AM of surgery. Eliquis 5 mg, Oral, 2 times daily furosemide (LASIX) 40 mg, Oral, Daily MAGNESIUM PO 1 tablet, Oral, Daily metoprolol tartrate (LOPRESSOR) 25 mg, Oral, 2 times daily POTASSIUM CHLORIDE PO 1 tablet, Oral, Daily, 99 MG Scheduled Meds:acetaminophen, 1,000 mg, Oral, q8h amLODIPine, 5 mg, Oral, Daily aspirin, 81 mg, Oral, Daily atorvastatin, 80 mg, Oral, Nightly folic acid, 1 mg, Oral, Daily furosemide, 40 mg, IntraVENous, BID heparin, 5,000 Units, SubCUTAneous, BID hydrALAZINE, 25 mg, Oral, TID influenza, 0.5 mL, IntraMUSCular, Once insulin lispro, 0-6 Units, SubCUTAneous, TID WC ipratropium-albutero l, 3 mL, Nebulization, 4x daily Lidocaine, 1 patch, Topical, Daily [Held by provider] metoprolol tartrate, 12.5 mg, Oral, BID mupirocin, , Nasal, BID pantoprazole, 40 mg, Oral, qAM AC polyethylene glycol (PEG) 3350, 17 g, Oral, Daily senna-docusate sodium, 2 tablet, Oral, Nightly simethicone, 80 mg, Oral, 4x daily sodium chloride 0.9%, 10 mL, IntraVENous, 2 times per day thiamine, 100 mg, Oral, Daily Continuous Infusions:nitropruss dede, 0.3-3 mcg/kg/min, Last Rate: 2.5 mcg/kg/min (03/27/23 1507) PRN Meds:PRN medications: albumin human, calcium gluconate, dextrose, dextrose, glucagon (rDNA), glucose, hydrALAZINE, hydrOXYzine pamoate, LORazepam OR LORazepam OR BLAYNE (more content not included)... Normal [facility] Progress Note PHYSICAL THERAPY [facility] Treatment Note Name/MRN: Regan Coughlin ([id number]) Date of : 1960 Age: 63 y.o. Room/Bed: T1-105/T1-105 A Discharge Recommendation: Home with Assist PRN and Outpatient PT (cardiac rehab) Equipment Needed: TBD Prior Level of Function ADL Assistance: Independent Ambulation Assistance: Independent Transfer Assistance: Independent Patient reports his brother does not work but does have chronic back pain which limits him. Patient is typically indep with all IADLs, ADLs and mobility without a device. Assessment Pt min assist for transfer, gait and bed mobility. Increase time to complete task. More SOBOE, HFNC 15L, ongoing cues for pursed lip breathing. Will continue to assess pt progress, anticipate home with assist. Subjective Pt in chair, appears uncomfortable, rocking back in forth, SOB. RN cleared pt for therapy. States if ambulate, keep in room due to increase in O2. Pt agreeable to PT. Pain: RN managing pain. Medical Precautions: No active isolations Proper PPE donned/doffed in accordance with facility standards. Fall Risk: [place] Fall Risk Score: 50 (High Risk) Precautions/Restrict ions: Sternal Precautions: no lifting more than 10lbs, modified UE precautions with move in the tube Lines/Drains/Airways : tele, continuous pulse ox, chest tube, ramirez, 15L O2 HFNC, introducer R IJ, art line RUE Family/Caregiver Present: none Objective Ambulation Ambulation 1 Assistive device(s) used: none Assist level: Min Assist Distance (ft): 7ft bed>chair Quality of gait: uneven step length, wide MADDIE, slow drew, postural sway Transfers/Mobility Sit to stand: Min Assist Stand to sit: Min Assist X1, chair>bed Device(s) used: none Exercises Exercises Upper Extremity: P&C ex #1-7 x 5 reps eac Comments: Pt limited by decrease endurance, SOBOE Bed Mobility Sit to supine: Min Assist Scooting: Min Assist HOB elevated, assist with BLE. Increase time, cues for pursed lip breathing. Plan Continue acute PT per plan of care. Safety/Education Safety Safety Devices in place: call light within reach, left in bed, and nurse notified Restraints: No Education Education Given To: patient Education Provided: PT Goals, Plan of Care, Home Exercise Program, Precautions, Transfer Training, Discharge Recommendations, Benefits of Increasing Activity, and Breathing Techniques Education Method: Verbal Barriers to Learning: None Education Outcome: Verbalized Understanding Outcome Measures AM-PAC AM-PAC Inpatient Mobility Raw Score (No Stairs) : 15 JH-HLM JH-HLM Score: Transferred to chair/commode Goals Patient Stated Goal: To feel better Encounter Problems Encounter Problems (Active) Cardiac Patient will perform bed mobility with modified independence in order to improve independence and prepare for out of bed mobility. (Progressing) Start: 03/26/23 Expected End: 04/09/23 Patient will complete sit to stand transfer with modified independence in order to improve safety and prepare for out of bed mobility. (Progressing) Start: 03/26/23 Expected End: 04/09/23 Patient will ambulate 400 feet or ambulate 5 minutes with modified independence with RPE of 14 or lower. (Progressing) Start: 03/26/23 Expected End: 04/09/23 Patient will ascend and descend flight of stairs with modified independence and rail for balance only. (Not Addressed) Start: 03/26/23 Expected End: 04/09/23 Patient will be independent with P&C exercises. (Progressing) Start: 03/26/23 Expected End: 04/09/23 Patient will be independent with managing secretions and home walking program. (Progressing) Start: 03/26/23 Expected End: 04/09/23 Pain - Adult Therapy Time Individual Co-treatment Time In 1418 Time Out 1434 Minutes 16 Timed Code Treatment Minutes: 16 Minutes (fa) Nils Barker PTA [facility] Progress Note Cardiothoracic Surgery Interval Note PATIENT NAME: Regan Coughlin : 1960 (63 y.o.) TODAY'S DATE: 03/27/2023 Interval History: -POCUS of possible right effusion on right - not enough to tap- reviewed with [facility] attending. -plan lasix now add high flow - may need to repeat lasix this afternoon [facility] Progress Note Attestation signed by Mikhail Casillas MD at 03/27/2023 12:25 PM I have personally performed a face to face diagnostic evaluation on this patient today on 03/27/23. Labs, imaging studies, and electronic medical record notes on [facility] have been reviewed by me. This note documented and discussed by the []licensed mortgage loan officer []Fellow [x] GEOVANNY reflects my history, exam and medical decision making. I have reviewed and agree with the care plan. Changes were made in the orders as necessary. ROS documentation was reviewed and negative unless otherwise stated in the HPI. My history, exam, assessment and plan are as follows: Time spent for coordination of care: a subsequent visit: 35 minutes (Level II) Increasing O2 requirements, wheezing b/l, heart RRR CXR with pulm vasc congestion, pulm edema Severe CAD 03/25 s/p CABG, AtriClip Hx Afib, currently sinus HTN Expected acute blood loss anemia psot op Tobacco and alcohol use Hx AAA, aortoiliac endograft and b/l renal artery stents Add scheduled duonebs Lasix diuresis as tolerated, try HFNC Transfuse prn Cardiothoracic Surgery/CCM Progress Note PATIENT NAME: Regan Coughlin DATE: 03/27/23 HPI: 63 yo male with PMH of CAD & STEMI s/p PCI (RCA in 2019), Afib (on Eliquis), AAA s/p fenestrated EVAR with RTOR for bilateral groin hematomas, hematuria, HTN, HPL, ETOH, current smoker. He presented to OSH ED on 01/07/23 with worsening SOB x3 weeks. Echo shoed LVEF 50% with wall motion abnormalities. He did develop Afib RVR during hospitalization and reverted back to SR. Had a heart cath on 02/16/23 which showed multivessel CAD involving LM, prox LAD, and RCA. Surgery/Procedure: 03/25/23: CABG x4, MAZE, LAAL with atriclip, and LLE EVH with Dr. Villarreal Interval History: 03/27/23, POD# 2: Hypertensive on nipride. 6LNC - and with noted pain at MSI and CT insertion site. Bit confused today on rounds- able to reorient quickly. Alert following commands - about to get up with nursing. Not eating much - only had some jello yesterday, tolerating liquids. Review of Systems Constitutional: Negative for diaphoresis, fatigue and fever. Respiratory: Negative for cough, shortness of breath and wheezing. Cardiovascular: Positive for chest pain. Negative for palpitations and leg swelling. Gastrointestinal: Negative for abdominal distention, constipation and diarrhea. Skin: Negative for color change, pallor and rash. Psychiatric/Behavior al: Positive for confusion. Objective: CT output cc/24hrs: 250 UO cc/24hrs: 605 Vitals: BP: (!) 156/59, MAP (mmHg): 83, BP Method: Arterial line Heart Rate: 63 Resp: 13 Temp: 36.6 ?C (97.8 ?F), Temp Source: Temporal BMI (Calculated): 26.09 Pacer Wires: V wires CXR: BMP: Recent Labs 03/25/23 1113 03/26/23 0413 03/26/23 1155 03/27/23 0002 03/27/23 0234 NA 137 138 135 133* -- K 3.9 4.6 4.1 3.6 -- CL 107 105 104 105 -- CO2 21* 19* 19* 23 -- BUN 15 24* 27* 29* -- CREATININE 1.04 1.46* 1.36* 1.15 -- CALCIUM 8.5 8.8 8.4 7.6* -- MG 3.5* 2.8* -- -- 2.4* PHOS 4.5 -- -- -- -- CBC: Recent Labs 03/25/23 1113 03/25/23 1218 03/25/23 1546 03/26/23 0413 03/27/23 0234 WBC 15.5* -- -- 9.5 13.0* HGB 7.4* < > 8.7 7.6* 6.4* HCT 22.1* -- -- 22.6* 18.9* PLT 173 -- -- 119* 109* MCV 93.9 -- -- 94.0 93.7 RDW 14.2 -- -- 14.3 14.4 < > = values in this interval not displayed. INR: Recent Labs 03/25/23 1113 03/26/23 0413 03/27/23 0234 INR 1.3* 1.2* 1.6* Physical Exam Cardiovascular: Rate and Rhythm: Normal rate and regular rhythm. Heart sounds: Normal heart sounds. No murmur heard. No friction rub. Pulmonary: Effort: Pulmonary effort is normal. Breath sounds: Examination of the right-lower field reveals decreased breath sounds. Decreased breath sounds present. Skin: General: Skin is warm and dry. Capillary Refill: Capillary refill takes less than 2 seconds. Findings: Bruising and ecchymosis present. Neurological: Mental Status: He is alert. Psychiatric: Behavior: Behavior is cooperative. Assessment: CAD s/p CABGx4 03/25 Afib (on Eliquis) s/p MAZE 03/25 AAA s/p fenestrated EVAR HTN HPL ETOH Right effusion - maintain CTs Current smoker Hx. Hematuria Hx. Stent to RCA in 2019 Post operative Pulm Management: Normal Post-operative Course Acute blood loss anemia/consumptive thrombocytopenia Plan: Patient Status: ICU Medications: Continue ASA statin Hold BB d/t bradycardia Hold diuretics for now Wean nipride Start CCB and hydralazine PRN with parameters Folate and Thiamine Give 2gm Calcium gluconate GI prophy: PO protonix DVT prophy: Heparin SubQ Bowel: senna/miralax Interventions: Transf (more content not included)... Normal [facility] THYROID STIMULATING HORMONEo n 03-27-2023 THYROID STIMULATING HORMONE 3.317 uIU/mL Normal 0.465-4.680 [facility] Comment on above: Performed By: #### L AB15 #### Latin American Studies Professor: SUZIE COOK ([id number]) [facility] ([facility]) [address] [place] [address] TSH Qnon 03-27-2023 Interpretation and review of laboratory results Normal [facility] XR ABDOMEN 1 VIEWon 03-27-20 XR ABDOMEN 1 VIEW Patient Name: REGAN COUGHLIN : 1960 Exam Date/Time: 03/27/2023 20:15 Procedure: XR ABDOMEN 1 VIEW Ordering Provider: VALERIO VINH Reason For Exam: abdominal pain Indication: Abdominal pain. IMPRESSION: Findings and impression: Abdomen single view. Note made of aortic stent, Ramirez catheter, additional support tubes. No free air seen. No convincing bowel obstruction. Persistent but mildly improved gaseous distention of the stomach. Increased fecal residue is suspicious for constipation. The etiology of the symptoms is not certain however. Consider follow-up. Report Dictated on Electronically Signed By: Jd Cox MD Electronically Signed Date/Time: 03/27/2023 8:19 PM EST Normal [facility] XR Abdomen Single viewon [facility] Radiology Study observation (narrative) Edis Méndez alth XR Abdomen Single viewOrdere d By: Jd Cox on 03-27-2023 [employer] Phone: XR CHEST 1 VIEWon 03-27-2023 XR CHEST 1 VIEW [facility] 1960 [id number] Exam Date/Time: 03/27/2023 05:48 Procedure: XR CHEST 1 VIEW Ordering Provider: WAHL JENNIFER Reason For Exam: Shortness of breath CHEST X-RAY AP CLINICAL INDICATION: Shortness of breath AP radiograph of the chest was obtained. COMPARISON: 03/26/2023 FINDINGS: The cardiac silhouette is enlarged with pulmonary venous congestion some increased compared to the prior exam. Increased/interval development of pulmonary edema with bilateral pleural effusions, right larger than left. No pneumothorax is identified. Degenerative changes of the thoracic spine are noted. IMPRESSION: Increased/interval development of pulmonary edema with bilateral pleural effusions, right larger than left. Increased pulmonary vascular congestion. Report Dictated on Electronically Signed By: Placido Nguyen MD Electronically Signed Date/Time: 03/27/2023 8:05 AM EST Normal [facility] XR Chest Single viewon 03-27 [facility] Radiology Study observation (narrative) Edis Méndez alth XR Chest Single viewOrdered By: Placido Nguyen on 03-27-2023 [employer] Phone: BASIC METABOLIC PANELon 11-3 Anion gap [Moles/Vol] 12 mmol/L Normal 3-13 [facility] Comment on above: Performed By: #### L AB15 #### Latin American Studies Professor: SUZIE COOK ([id number]) [facility] [address] [place] [address] Calcium [Mass/Vol] 8.4 mg/dL Normal 8.4-10.4 [facility] Comment on above: Performed By: #### L AB15 #### Latin American Studies Professor: SUZIE COOK ([id number]) [facility] [address] [place] [address] Chloride [Moles/Vol] 104 mmol/L Normal 98-107 [facility] Comment on above: Performed By: #### L AB15 #### Latin American Studies Professor: SUZIE COOK ([id number]) [facility] [address] [place] [address] CO2 [Moles/Vol] 19 mmol/L Low 22-30 [facility] Comment on above: Performed By: #### L AB15 #### Latin American Studies Professor: SUZIE COOK ([id number]) [facility] [address] [place] [address] Creatinine [Mass/Vol] 1.36 mg/dL High 0.66-1.25 [facility] Comment on above: Performed By: #### L AB15 #### Latin American Studies Professor: SZUIE COOK ([id number]) [facility] [address] [place] [address] GLOMERULAR FILTRATION RATE ML/MIN/1.73 SQ M.PREDICTED 58.1 mL/min/1.73m*2 Low >60.0 [facility] Comment on above: Result Comment: Calc ulation based on the Chronic Kidney Disease Epidemiology Collaboration (CKD-EPI) equation refit without adjustment for race Performed By: #### L AB15 #### Latin American Studies Professor: SUZIE COOK ([id number]) [facility] ([facility]) [address] [place] [address] Glucose [Mass/Vol] 120 mg/dL High 70-100 [facility] Comment on above: Performed By: #### L AB15 #### Latin American Studies Professor: SUZIE COOK ([id number]) [facility] ([facility]) [address] [place] [address] Potassium [Moles/Vol] 4.1 mmol/L Normal 3.5-5.1 [facility] Comment on above: Performed By: #### L AB15 #### Latin American Studies Professor: SUZIE COOK ([id number]) [facility] ([facility]) [address] [place] [address] Sodium [Moles/Vol] 135 mmol/L Normal 135-145 [facility] Comment on above: Performed By: #### L AB15 #### Latin American Studies Professor: SUZIE COOK ([id number]) [facility] ([facility]) [address] [place] [address] Urea nitrogen [Mass/Vol] 27 mg/dL High 9-20 [facility] Comment on above: Performed By: #### L AB15 #### Latin American Studies Professor: SUZIE COOK ([id number]) [facility] ([facility]) [address] [place] [address] Anion gap [Moles/Vol] 14 mmol/L High 3-13 [facility] Comment on above: Performed By: #### L AB15 #### Latin American Studies Professor: SUZIE COOK ([id number]) [facility] ([facility]) [address] [place] [address] [place] Calcium [Mass/Vol] 8.8 mg/dL Normal 8.4-10.4 [facility] Comment on above: Performed By: #### L AB15 #### Latin American Studies Professor: SUZIE COOK ([id number]) [facility]) [address] [place] [address] [place] Chloride [Moles/Vol] 105 mmol/L Normal 98-107 [facility] Comment on above: Performed By: #### L AB15 #### Latin American Studies Professor: SUZIE COOK ([id number]) [facility] ([facility]) [address] [place] [address] [place] CO2 [Moles/Vol] 19 mmol/L Low 22-30 [facility] Comment on above: Performed By: #### L AB15 #### Latin American Studies Professor: SUZIE COOK ([id number]) [facility] ([facility]) [address] [place] [address] Creatinine [Mass/Vol] 1.46 mg/dL High 0.66-1.25 [facility] Comment on above: Performed By: #### L AB15 #### Latin American Studies Professor: SUZIE COOK ([id number]) [facility] ([facility]) [address] [place] [address] GLOMERULAR FILTRATION RATE ML/MIN/1.73 SQ M.PREDICTED 53.4 mL/min/1.73m*2 Low >60.0 [facility] Comment on above: Result Comment: Calc ulation based on the Chronic Kidney Disease Epidemiology Collaboration (CKD-EPI) equation refit without adjustment for race Performed By: #### L AB15 #### Latin American Studies Professor: SUZIE COOK ([id number]) [facility] ([facility]) [address] [place] [address] [place] Glucose [Mass/Vol] 126 mg/dL High 70-100 [facility] Comment on above: Performed By: #### L AB15 #### Latin American Studies Professor: SUZIE COOK ([id number]) [facility] ([facility]) [address] [place] [address] [place] Potassium [Moles/Vol] 4.6 mmol/L Normal 3.5-5.1 [facility] Comment on above: Performed By: #### L AB15 #### Latin American Studies Professor: SUZIE COOK ([id number]) [facility] ([facility]) [address] [place] [address] Sodium [Moles/Vol] 138 mmol/L Normal 135-145 [facility] Comment on above: Performed By: #### L AB15 #### Latin American Studies Professor: SUZIE COOK ([id number]) [facility]) [address] [place] [address] Urea nitrogen [Mass/Vol] 24 mg/dL High 9-20 [facility] Comment on above: Performed By: #### L AB15 #### Latin American Studies Professor: SUZIE COOK ([id number]) [facility] ([facility]) [address] [place] [address] Basic metabolic 1998 panelon 03-26-2023 Anion gap [Moles/Vol] 12 mmol/L 3 - 13 mmol/L [facility] Calcium [Mass/Vol] 8.4 mg/dL 8.4 - 10. 4 mg/dL [facility] Chloride [Moles/Vol] 104 mmol/L 98 - 10 7 mmol/L [facility] CO2 [Moles/Vol] 19 mmol/L Low 22 - 30 mmol/L [facility] Creatinine [Mass/Vol] 1.36 mg/dL High 0.66 - 1.25 mg/dL [facility] GFR/1.73 sq M.predicted MDRD (S/P/Bld) [Vol rate/Area] 58.1 mL/min/{1.73_m2} Low - PINF [facility] Glucose [Mass/Vol] 120 mg/dL High 70 - 100 mg/dL [facility] Interpretation and review of laboratory results Abnormal [facility] Potassium [Moles/Vol] 4.1 mmol/L 3.5 - 5.1 mmol/L [facility] Sodium [Moles/Vol] 135 mmol/L 135 - 145 mmol/L [facility] Urea nitrogen [Mass/Vol] 27 mg/dL High 9 - 20 mg/dL [facility] Anion gap [Moles/Vol] 14 mmol/L High 3 - 13 mmol/L [facility] Calcium [Mass/Vol] 8.8 mg/dL 8.4 - 10. 4 mg/dL [facility] Chloride [Moles/Vol] 105 mmol/L 98 - 10 7 mmol/L [facility] CO2 [Moles/Vol] 19 mmol/L Low 22 - 30 mmol/L [facility] Creatinine [Mass/Vol] 1.46 mg/dL High 0.66 - 1.25 mg/dL [facility] GFR/1.73 sq M.predicted MDRD (S/P/Bld) [Vol rate/Area] 53.4 mL/min/{1.73_m2} Low - PINF [facility] Glucose [Mass/Vol] 126 mg/dL High 70 - 100 mg/dL [facility] Potassium [Moles/Vol] 4.6 mmol/L 3.5 - 5.1 mmol/L [facility] Sodium [Moles/Vol] 138 mmol/L 135 - 145 mmol/L [facility] Urea nitrogen [Mass/Vol] 24 mg/dL High 9 - 20 mg/dL [facility] CALCIUM, IONIZEDon CALCIUM IONIZED 4.10 mg/dL Low 4.30-5.20 [facility] Comment on above: Order Comment: Obtai n PRN and check ionized Ca level if serum Ca level less than 8.0 Performed By: #### L [id number] #### Latin American Studies Professor: SUZIE COOK ([id number]) [address] PH, IONIZED CALCIUM 7.37 Normal 7.31-7.46 [facility] Comment on above: Order Comment: Obtai n PRN and check ionized Ca level if serum Ca level less than 8.0 Performed By: #### L [id number] #### Latin American Studies Professor: SUZIE COOK ([id number]) [address] [place] 03-26-2023 [place] Care Managment Initial Assessment Date: 03/26/2023 Patient Name: Regan Coughlin : 1960 Patient Information Source of Information: Patient Cognition/Language: WFL - Within Functional Limits Permission given to speak with patient sales representative womens health/careg iver as indicated: Confirmation of Payer with patient/family: No Payer Name: Self pay Zebulon: No Confirmation of Primary Care Physician: Confirmed PCP Name: Dr. Cratf Seen in last 2 years?: Yes Primary Caregiver: Self If assistance needed, confirmed caregiver ready, willing and able to care for patient at discharge: Confirmed with: Living Arrangements Current Residence: House Number of Floors 1 Number of Entry Steps: Bed/Bath Levels: Both first floor Facility: Facility Name: Plan to Return: Lives with: Extended family members (brother) Support Systems: Family members Activities of Daily Living Ambulation: Independent Bathing/Dressing: Independent Elimination/Continen ce/Toileting: Independent Feeding: Independent Who Assists with Activities of Daily Living: Instrumental Activities of Daily Living Prescription Coverage: Yes Pharmacy Used: [facility] in [place] Medication Management: Independent Transportation/Shopp ing: Independent Transportation Mode: Car Needs Assistance with Transportation at Discharge: No Meal Preparation: Independent Laundry/Cleaning: Independent Finances/Bill Paying: Independent Communication: Independent Types of Care Services/Equipment Utilized Care Services: Dialysis Type: Durable Medical Equipment: Patient's Goal/Discharge Plan Patient expects to be discharged to: home Discharge Planning Actions: Continue to follow Patient's Choice Rights and [employer] and Collaborative Relationships Disclosed as Indicated for Post-Acute Care: Interdisciplinary Team Engagement: PT/OT, Home Health Care Social Work Referral for: Additional Information: Patient admitted to [facility] ICU s/p CABG x 4 POD # 1. Spoke with patient at bedside, introduced self and role. Patient from home with brother, is independent, has PCP but no prescription coverage, will have a ride home and LOVE following but patient lacks a payor source. TCC to follow. Marisabel Watts RN Normal [facility] CBC (HEMOGRAM)on 03-26-2023 Erythrocyte distribution width (RBC) [Ratio] 14.3 % Normal 11.5-14.5 [facility] Comment on above: Performed By: #### L [id number] #### Latin American Studies Professor: SUZIE COOK ([id number]) [address] ERYTHROCYTE MEAN CORPUSCULAR HEMOGLOBIN CONCENTRATION (G/DL) BY AUTOMATED 33.8 % Normal 32.0-36.0 [facility] Comment on above: Performed By: #### L [id number] #### Latin American Studies Professor: SUZIE COOK ([id number]) [address] Hematocrit (Bld) [Volume fraction] 22.6 % Low 40.0-52.0 [facility] Comment on above: Performed By: #### L [id number] #### Latin American Studies Professor: SUZIE COOK ([id number]) [facility] ([facility]) [address] [place] [address] Hemoglobin (Bld) [Mass/Vol] 7.6 g/dL Low 13.0-18.0 [facility] Comment on above: Performed By: #### L [id number] #### Latin American Studies Professor: SUZIE COOK ([id number]) [facility] ([facility]) [address] [place] [address] MCH (RBC) [Entitic mass] 31.8 pg Normal 26.0-34.0 [facility] Comment on above: Performed By: #### L [id number] #### Latin American Studies Professor: SUZIE COOK ([id number]) [facility]) [address] [place] [address] MCV (RBC) [Entitic vol] 94.0 fL Normal 80.0-98.0 [facility] Comment on above: Performed By: #### L [id number] #### Latin American Studies Professor: SUZIE COOK ([id number]) [facility] ([facility]) [address] [place] [address] Platelet mean volume (Bld) [Entitic vol] 8.7 fL Normal 7.4-12.4 [facility] Comment on above: Performed By: #### L [id number] #### Latin American Studies Professor: SUZIE COOK ([id number]) [facility]) [address] [place] [address] Platelets (Bld) [#/Vol] 119 10*3/uL Low 140-440 [facility] Comment on above: Performed By: #### L [id number] #### Latin American Studies Professor: SUZIE COOK ([id number]) [facility]) [address] [place] [address] RBC (Bld) [#/Vol] 2.40 10*6/uL Low 4.40-5.90 [facility] Comment on above: Performed By: #### L [id number] #### Latin American Studies Professor: SUZIE COOK ([id number]) [facility]) [address] [place] [address] WBC (Bld) [#/Vol] 9.5 10*3/uL Normal 3.6-10.7 [facility] Comment on above: Performed By: #### L [id number] #### Latin American Studies Professor: SUZIE COOK ([id number]) [facility] [address] [place] [address] CBC panel Auto (Bld)Ordered By: Ludin Gloria on 03-26-2023 Erythrocyte distribution width (RBC) [Ratio] 14.3 % 11.5 - 14.5 % [facility] Hematocrit (Bld) [Volume fraction] 22.6 % Low 40.0 - 52.0 % [facility] Hemoglobin (Bld) [Mass/Vol] 7.6 g/dL Low 13.0 - 18.0 g/dL [facility] Interpretation and review of laboratory results Abnormal [facility] MCH (RBC) [Entitic mass] 31.8 pg 26. 0 - 34.0 pg [facility] MCHC (RBC) [Mass/Vol] 33.8 % 32.0 - 36.0 % [facility] MCV (RBC) [Entitic vol] 94.0 fL 80.0 - 98.0 fL [facility] Platelet mean volume (Bld) [Entitic vol] 8.7 fL 7.4 - 12.4 fL [facility] Platelets (Bld) [#/Vol] 119 10*3/uL Low 140 - 440 10*3/uL [facility] RBC (Bld) [#/Vol] 2.40 10*6/uL Low 4.40 - 5.9 0 10*6/uL [facility] WBC (Bld) [#/Vol] 9.5 10*3/uL 3.6 - 10.7 10*3/uL [facility] Calcium.ionized [Moles/Vol]O rdered By: Tanja Adams on 03-26-2023 Calcium.ionized (Bld) [Moles/Vol] 4.10 mg/dL Low 4.30 - 5.20 mg/dL [facility] Interpretation and review of laboratory results Abnormal [facility] PH, IONIZED CALCIUM 7.37 7.31 - 7.46 [facility] Consulton 03-26-2023 Consult Department of Internal Medicine Division of Endocrinology, Diabetes, & Metabolism Endocrinology Note Patient Name: Regan Coughlin : 1960 AGE: 63 y.o. Room/Bed: T1-105/T1-105 A Admission Date: 03/25/2023 Visit Date: 03/26/2023 Reason for Endocrine Consult: Post op heart surgery Provider/Team Requesting Consult: CTS PCP: Sophie Craft [employer] Building [employer] Professor: No ASSESSMENT: Stress hyperglycemia CAD - S/P CABG SHONA Atrial fibrillation HTN HLD PLAN: Give Lantus 18 units once and dc insulin drip 1.5 hours after Lantus has been given Since he remains NPO , Start Humalog low dose scale q 4 If he is being started on diet will change above mentioned scale to TID with meals along with Humalog 4 units with meals Check TSH ICU goal <180 GMF goal <150 POCT BG ACHS Hypoglycemia per protocol Carb controlled diet when being resumed ANTICIPATED ENDOCRINE HOME GOING RECOMMENDATIONS: Optimized for Discharge from Endocrine standpoint: No Home Going Endocrine Rx Recommendations-- None Outpt Follow Up-- PCP SUBJECTIVE/HPI: CHIEF COMPLAINT: CAD for CABG Admission in 12/2022 for shortness of breath , developed A Fib with RVR during this admission. Underwent LHC which showed left main CAD and severe proximal LAD Stenosis. He underwent CABG X 4 on 03/25 Type of DM: na Onset of DM: na Home DM Medication Regimen: none DM control (last A1c/glucose data): 4.2% on current admission Insulin drip requirement has been around 2 units/hour for last 6 hour Patient was seen at bedside Endorses to feeling very tired and sore . Had a few bites of jello , feels nauseous He was able to affirm that he does not have diabetes No family history of diabetes No thyroidal issues at baseline Discussed with nursing , patient remains NPO in view of nausea Glucose Date/Time Value Ref Range Status 03/26/2023 08:05 AM 132 (H) 70 - 100 mg/dL Final 03/26/2023 07:17 AM 151 (H) 70 - 100 mg/dL Final 03/26/2023 06:16 AM 143 (H) 70 - 100 mg/dL Final 03/26/2023 05:24 AM 146 (H) 70 - 100 mg/dL Final 03/26/2023 04:20 AM 106 (H) 70 - 100 mg/dL Final 03/26/2023 03:15 AM 149 (H) 70 - 100 mg/dL Final Review of Systems ROS negative except for those mentioned in HPI. OBJECTIVE: Vitals: 03/26/23 0749 03/26/23 0800 03/26/23 0900 03/26/23 1000 BP: BP Location: Patient Position: Pulse: 57 55 56 Resp: (!) 27 21 23 Temp: TempSrc: SpO2: 95% 94% 98% Weight: Height: 5' 6 (1.676 m) Physical Exam Vitals and nursing note reviewed. Constitutional: Comments: Appears tired HENT: Head: Normocephalic and atraumatic. Cardiovascular: Rate and Rhythm: Normal rate and regular rhythm. Comments: Incision intact Pulmonary: Effort: Pulmonary effort is normal. Comments: On nasal cannula oxygen Chest tubes noted Musculoskeletal: General: No swelling. Normal range of motion. Skin: General: Skin is dry. Neurological: General: No focal deficit present. Mental Status: He is oriented to person, place, and time and easily aroused. Psychiatric: Attention and Perception: Attention normal. Behavior: Behavior is slowed. 24 hour intake/output: Intake/Output Summary (Last 24 hours) at 03/26/2023 1039 Last data filed at 03/26/2023 1000 Gross per 24 hour Intake 4726.01 ml Output 2350 ml Net 2376.01 ml Diet: NPO diet Medications (as per EMR): HomeMeds: Current Outpatient Medications Medication Instructions aspirin 81 mg, Oral, Daily atorvastatin (LIPITOR) 80 mg, Oral, Nightly bacitracin 500 UNIT/GM ointment Topical, See admin instructions, Place on q-tip and swab inside nostrils the night before surgery and AM of surgery. chlorhexidine (Peridex) 0.12 % solution 15 mL, Mouth/Throat, See admin instructions, Swish and spit the night before surgery and AM of surgery. Eliquis 5 mg, Oral, 2 times daily furosemide (LASIX) 40 mg, Oral, Daily MAGNESIUM PO 1 tablet, Oral, Daily metoprolol tartrate (LOPRESSOR) 25 mg, Oral, 2 times daily POTASSIUM CHLORIDE PO 1 tablet, Oral, Daily, 99 MG Scheduled Meds:acetaminophen, 1,000 mg, Oral, q8h aspirin, 81 mg, Oral, Daily atorvastatin, 80 mg, Oral, Nightly ceFAZolin, 2,000 mg, IntraVENous, q8h chlorhexidine, 15 mL, Mouth/Throat, BID folic acid, 1 mg, Oral, Daily heparin, 5,000 Units, SubCUTAneous, BID [START ON 03/27/2023] influenza, 0.5 mL, IntraMUSCular, Once Lidocaine, 1 patch, Topical, Daily mupirocin, , Nasal, BID pantoprazole, 40 mg, Oral, qAM AC polyethylene glycol (PEG) 3350, 17 g, Oral, Daily senna-docusate sodium, 2 tablet, Oral, Nightly sodium chloride 0.9%, 10 mL, IntraVENous, 2 times per day thiamine, 100 mg, Oral, Daily Continuous Infusions:insulin regular, 1-50 Units/hr, Last Rate: 2 Units/hr (03/26/23 1000) lactated ringers, 250 mL, Last Rate: Stopped (03/26/23 0308) nitroprusside, 0.3-3 mcg/kg/min, Last Rate: 0.25 mcg/kg/min (03/26/23 0543) PRN Meds:PRN medications: albu (more content not included)... Normal [facility] ECG 12-LEADon 03-26-2023 ECG 12-LEAD IMPRESSION: Sinus bradycardia LAD, consider left anterior fascicular block Left ventricular hypertrophy Nonspecific T abnormalities, lateral leads Electronically Signed On 03-26-2023 9:27:01 EST by Claudia Powers [facility] ECG 12-LEAD IMPRESSION: Sinus or ectopic atrial bradycardia Left axis deviation PROBABLE INFERIOR INFARCT, AGE INDETERMINATE Electronically Signed On 03-26-2023 7:45:54 EST by Claudia Powers [facility] HEPATIC FUNCTION PANELon Albumin [Mass/Vol] 4.6 g/dL Normal 3.5-5.0 [facility] Comment on above: Performed By: #### L [id number] #### Latin American Studies Professor: SUZIE COOK ([id number]) [facility] ([address] ALP [Catalytic activity/Vol] 46 U/L Normal 38-126 [facility] Comment on above: Performed By: #### L AB15 #### Latin American Studies Professor: SUZIE COOK ([id number]) [facility] ([facility]) [address] [place] [address] ALT [Catalytic activity/Vol] 72 U/L High 0-49 [facility] Comment on above: Performed By: #### L AB15 #### Latin American Studies Professor: SUZIE COOK ([id number]) [facility] ([facility]) [address] [place] [address] AST [Catalytic activity/Vol] 114 U/L High 15-46 [facility] Comment on above: Performed By: #### L AB15 #### Latin American Studies Professor: SUZIE COOK ([id number]) [facility] ([facility]) [address] [place] [address] Bilirubin [Mass/Vol] 1.5 mg/dL High 0.2-1.3 [facility] Comment on above: Performed By: #### L AB15 #### Latin American Studies Professor: SUZIE COOK ([id number]) [facility] ([facility]) [address] [place] [address] Bilirubin.indirect [Mass/Vol] 0.0 mg/dL Normal 0.0-0.3 [facility] Comment on above: Performed By: #### L AB15 #### Latin American Studies Professor: SUZIE COOK ([id number]) [facility] ([facility]) [address] [place] [address] Protein [Mass/Vol] 6.7 g/dL Normal 6.3-8.2 [facility] Comment on above: Performed By: #### L AB15 #### Latin American Studies Professor: SUZIE COOK ([id number]) [facility] ([facility]) [address] [place] [address] Hepatic function 2000 panelo n 03-26-2023 Albumin [Mass/Vol] 4.6 g/dL 3.5 - 5.0 g/dL [facility] ALP [Catalytic activity/Vol] 46 U/L 38 - 126 U/L [facility] ALT [Catalytic activity/Vol] 72 U/L High 0 - 49 U/L [facility] AST [Catalytic activity/Vol] 114 U/L High 15 - 46 U/L [facility] Bilirubin [Mass/Vol] 1.5 mg/dL High 0.2 - 1 .3 mg/dL [facility] Bilirubin.conjugated [Mass/Vol] 0.0 mg/dL 0.0 - 0.3 mg/dL [facility] Interpretation and review of laboratory results Abnormal [facility] Protein [Mass/Vol] 6.7 g/dL 6.3 - 8.2 g/dL [facility] LACTIC ACID WITH REFLEXon Lactate [Moles/Vol] 2.0 mmol/L Normal 0.7-2.0 [facility] Comment on above: Performed By: #### L AB15 #### Latin American Studies Professor: SUZIE COOK ([id number]) [facility] ([facility]) [address] [place] [address] Lactate [Moles/Vol] 3.1 mmol/L High 0.7-2.0 [facility] Comment on above: Performed By: #### L AB15 #### Latin American Studies Professor: SUZIE COOK ([id number]) [facility] [address] [place] [address] Laboratory - Chemistry and C hemistry - challengeon 03-26-2023 Glucose [Mass/Vol] 152 mg/dL High 70 - 100 mg/dL [facility] Lactate [Moles/Vol] 2.0 mmol/L 0.7 - 2. 0 mmol/L [facility] Glucose [Mass/Vol] 132 mg/dL High 70 - 100 mg/dL [facility] Glucose [Mass/Vol] 145 mg/dL High 70 - 100 mg/dL [facility] Glucose [Mass/Vol] 132 mg/dL High 70 - 100 mg/dL [facility] Glucose [Mass/Vol] 151 mg/dL High 70 - 100 mg/dL [facility] Lactate [Moles/Vol] 3.1 mmol/L High 0.7 - 2. 0 mmol/L [facility] Glucose [Mass/Vol] 143 mg/dL High 70 - 100 mg/dL [facility] Glucose [Mass/Vol] 146 mg/dL High 70 - 100 mg/dL [facility] Magnesium [Mass/Vol] 2.8 mg/dL High 1.6 - 2 .3 mg/dL [facility] Glucose [Mass/Vol] 106 mg/dL High 70 - 100 mg/dL [facility] Glucose [Mass/Vol] 149 mg/dL High 70 - 100 mg/dL [facility] Glucose [Mass/Vol] 150 mg/dL High 70 - 100 mg/dL [facility] Glucose [Mass/Vol] 179 mg/dL High 70 - 100 mg/dL [facility] Glucose [Mass/Vol] 173 mg/dL High 70 - 100 mg/dL [facility] Laboratory - Coagulationon 1 05-26-2022 aPTT Coag (PPP) [Time] 26.3 s 20.0 - 30.5 s [facility] INR Coag (PPP) [Relative time] 1.2 {INR} High 0.9 - 1.1 [facility] PT Coag (Bld) [Time] 12.8 s High 9.0 - 1 2.0 s [facility] MAGNESIUMon 03-26-2023 Magnesium [Mass/Vol] 2.8 mg/dL High 1.6-2.3 [facility] Comment on above: Performed By: #### L AB15 #### Latin American Studies Professor: SUZIE COOK ([id number]) [facility] ([facility]) [address] [place] [address] No Panel Informationon 03-26 Interpretation and review of laboratory results Abnormal [facility] Interpretation and review of laboratory results Normal [facility] Interpretation and review of laboratory results Abnormal [facility] Interpretation and review of laboratory results Abnormal [facility] P Radcliff -46 degrees [facility] SD Interval 121 ms [facility] QRS [place] -41 degrees [facility] QRSD Interval 99 ms [facility] QT Interval 559 ms [facility] QTC Interval 543 ms [facility] T Wave [place] 61 degrees [facility] CV EPIPHANY [facility] Interpretation and review of laboratory results Abnormal [facility] Interpretation and review of laboratory results Abnormal [facility] Interpretation and review of laboratory results Abnormal [facility] Interpretation and review of laboratory results Abnormal [facility] Interpretation and review of laboratory results Abnormal [facility] Interpretation and review of laboratory results Abnormal [facility] Interpretation and review of laboratory results Abnormal [facility] Interpretation and review of laboratory results Abnormal [facility] Interpretation and review of laboratory results Abnormal [facility] Interpretation and review of laboratory results Abnormal [facility] Interpretation and review of laboratory results Abnormal [facility] No Panel InformationOrdered By: Claudia Powers on 03-26-2023 P [place] 67 degrees [facility] [employer] Work Phone: SD Interval 149 ms [facility] [employer] Work Phone: QRS [place] -68 degrees [facility] [employer] Work Phone: QRSD Interval 105 ms [facility] [employer] Work Phone: QT Interval 536 ms [facility] [employer] Work Phone: QTC Interval 530 ms [facility] [employer] Work Phone: T Wave [place] 100 degrees [facility] [employer] Work Phone: [facility] [employer] Work Phone: PROTIME AND APTTon 3 aPTT Coag (Bld) [Time] 26.3 s Normal 20.0-30.5 [facility] Comment on above: Performed By: #### L [id number] #### Latin American Studies Professor: SUZIE COOK ([id number]) [facility] ([address] INR Coag (PPP) [Relative time] 1.2 {INR} High 0.9-1.1 [facility] Comment on above: Result Comment: Srikanth mmended Anticoagulant Therapy: SEE BELOW ----- INR of 2.0 - 3.0 : - Prophylaxis of Venous Thrombosis (high-risk surgery) - Treatment of Venous Thrombosis - Treatment of Pulmonary Embolism (Includes tissue heart valves, Acute Myocardial Infarction to prevent systemic embolism, Valvular Heart Disease, and Atrial Fibrillation) ----- INR of 2.5 - 3.5 : - Mechanical Prosthetic Valves (high risk) - If oral anticoagulant therapy is used to prevent Myocardial Infarction Performed By: #### L [id number] #### Latin American Studies Professor: SUZIE COOK ([id number]) [facility] ([facility]) [address] [place] [address] PT Coag (PPP) [Time] 12.8 s High 9.0-12.0 [facility] Comment on above: Performed By: #### L [id number] #### Latin American Studies Professor: SUZIE COOK ([id number]) [facility] ([facility]) [address] [place] [address] Progress Noteon 03-26-2023 Progress Note Attestation signed by Mikhail Casillas MD at 03/26/2023 3:15 PM I have personally performed a face to face diagnostic evaluation on this patient today on 03/26/23. Labs, imaging studies, and electronic medical record notes on [employer] have been reviewed by me. This note documented and discussed by the []licensed mortgage loan officer []Fellow [x] GEOVANNY reflects my history, exam and medical decision making. I have reviewed and agree with the care plan. Changes were made in the orders as necessary. ROS documentation was reviewed and negative unless otherwise stated in the HPI. My history, exam, assessment and plan are as follows: Time spent for coordination of care: a subsequent visit: 35 minutes (Level II) Awake, in chair, resp unlabored, sinus te Extubated yesterday, weaned off precedex, remains on nipride drip On CIWA Had nausea this morning Severe CAD 03/25 s/p CABG, AtriClip Hx Afib, currently sinus Expected acute blood loss anemia Post op vent management, resp acidosis SHONA with elevated lactic acid Tobacco and alcohol use Hx AAA, aortoiliac endograft and b/l renal artery stents F/u KUB On ASA, statin On folic acid and thiamine Cont CIWA Cardiothoracic Surgery/[facility] Progress Note PATIENT NAME: Regan Coughlin DATE: 03/26/23 HPI: 63 yo male with PMH of CAD & STEMI s/p PCI (RCA in 2019), Afib (on Eliquis), AAA s/p fenestrated EVAR with RTOR for bilateral groin hematomas, hematuria, HTN, HPL, ETOH, current smoker. He presented to [facility] ED on 01/07/23 with worsening SOB x3 weeks. Echo shoed LVEF 50% with wall motion abnormalities. He did develop Afib RVR during hospitalization and reverted back to SR. Had a heart cath on 02/16/23 which showed multivessel CAD involving LM, prox LAD, and RCA. Surgery/Procedure: 03/25/23: CABG x4, MAZE, LAAL with atriclip, and LLE EVH with Dr. Villarreal Interval History: 03/26/23, POD# 1: Hypertensive this am, started on Nipride gtt at 0.25 mcg/kg/min. Other VSS, NSR/SB on tele, on 2L NC. He is anxious this am, does endorse pain. CIWA scale in, has not received any Ativan. Having some nausea, no vomiting. Cr elevated at 1.46, Lactic 3.1, low UO. CI 2.42, SVR 1137, PAP 54/20. A-line: Arterial Line BP 1: 141/62 Invasive Hemodynamic Monitoring Hemodynamic Monitoring Additional Assessment: Yes Blood Temperature: 36.7 ?C (98.1 ?F) PAP: 54/20 PAP (Mean): 32 mmHg CVP (mmHg): 18 mmHg CO (L/min): 4.73 L/min CI (L/min/m2): 2.42 L/min/m2 SVR (dyne*sec)/cm5: 1137 (dyne*sec)/cm5 Review of Systems Constitutional: Positive for activity change, appetite change and fatigue. Negative for diaphoresis and fever. Respiratory: Negative for cough, shortness of breath and wheezing. Cardiovascular: Negative for chest pain, palpitations and leg swelling. Gastrointestinal: Negative for abdominal distention, constipation and diarrhea. Skin: Negative for color change, pallor and rash. Psychiatric/Behavior al: The patient is nervous/anxious. Objective: CT output cc/24hrs: 875 mL UO cc/24hrs: 995 mL Vitals: BP: (!) 140/55, MAP (mmHg): 88, BP Method: Arterial line Heart Rate: 57 Resp: (!) 31 Temp: 36.7 ?C (98.1 ?F), Temp Source: Core BMI (Calculated): 26.09 Pacer Wires: V-wires CXR: BMP: Recent Labs 03/25/23 1113 03/26/23 0413 NA 137 138 K 3.9 4.6 CL 107 105 CO2 21* 19* BUN 15 24* CREATININE 1.04 1.46* CALCIUM 8.5 8.8 MG 3.5* 2.8* PHOS 4.5 -- CBC: Recent Labs 03/25/23 1113 03/25/23 1218 03/25/23 1546 03/26/23 0413 WBC 15.5* -- -- 9.5 HGB 7.4* 8.5 8.7 7.6* HCT 22.1* -- -- 22.6* PLT 173 -- -- 119* MCV 93.9 -- -- 94.0 RDW 14.2 -- -- 14.3 INR: Recent Labs 03/25/23 1113 03/26/23 0413 INR 1.3* 1.2* Physical Exam Cardiovascular: Rate and Rhythm: Regular rhythm. Bradycardia present. Heart sounds: Normal heart sounds. No murmur heard. No friction rub. Pulmonary: Effort: Pulmonary effort is normal. Breath sounds: No decreased breath sounds or wheezing. Genitourinary: Comments: Ramirez catheter to straight drain Musculoskeletal: Right lower leg: No edema. Left lower leg: No edema. Skin: General: Skin is warm and dry. Capillary Refill: Capillary refill takes less than 2 seconds. Findings: Bruising and ecchymosis present. Comments: Surgical Incisions: well approximate; clean dry with no drainage noted. Surrounding skin no redness, warmth, or signs of infection noted. Neurological: Mental Status: He is alert. Psychiatric: Behavior: Behavior is cooperative. Assessment: CAD s/p CABG Afib (on Eliquis) AAA s/p fenestrated EVAR HTN HPL ETOH Current smoker Hx. Hematuria Hx. Stent to RCA in 2019 Post operative Pulm Management: Normal Po (more content not included)... Normal [facility] US Heart Transesophagealon 1 05-26-2022 CV CPACS HEMO US Heart TransesophagealOrde red By: Yovani Booth on 03-26-2023 [facility] Phone: Vital signsOrdered By: Claudia mackenzie on 03-26-2023 Heart rate 58 /min bpm [employer] Phone: Vital signson 03-26-2023 Heart rate 57 /min bpm [facility] [employer] XR ABDOMEN 1 VIEWon 03-26-20 23 XR ABDOMEN 1 VIEW Patient Name: REGAN COUGHLIN : 1960 Exam Date/Time: 03/26/2023 14:39 Procedure: XR ABDOMEN 1 VIEW Ordering Provider: WAHL JENNIFER Reason For Exam: nausea Clinical Information: Nausea. Abdomen, single view, KUB, portable, 1404: A single portable AP supine view of the abdomen demonstrates a nonspecific bowel gas pattern. There is gaseous distention of the stomach. Gas is seen within nondistended small bowel and gas and moderate fecal residue are seen in normal caliber large. There is no obvious free intracranial gas on limited evaluation. There is extensive aorto by iliac stent graft. IMPRESSION: Impression: 1. Gaseous distention of the stomach. 2. Nonspecific bowel gas pattern without evidence of obstruction. 3. No other significant radiographic abnormality. Report Dictated on Electronically Signed By: Max Sarkar MD Electronically Signed Date/Time: 03/26/2023 3:11 PM EST Normal [facility] XR Abdomen Single viewon [facility] Radiology Study observation (narrative) Edis Méndez alth XR CHEST 1 VIEWon 03-26-2023 XR CHEST 1 VIEW Patient Name: REGAN COUGHLIN : 1960 [facility]#: [id number] Exam Date/Time: 03/26/2023 05:32 Procedure: XR CHEST 1 VIEW Ordering Provider: WA[facility] JENNIFER Reason For Exam: Shortness of breath CLINICAL INFORMATION: Shortness of breath. CHEST X-RAY, PORTABLE, 0532 hours: An AP portable view is compared to the prior examination of the previous day. The endotracheal and endogastric tubes have been removed. The tip of the [place] catheter has been advanced into the proximal right pulmonary artery. There is no change in the position of the mediastinal or left lower hemithorax chest tubes. There is new atelectasis at right lung base. Stable mild pulmonary vascular prominence/congestio n. No pneumothorax. Report Dictated on Electronically Signed By: Max Sarkar MD Electronically Signed Date/Time: 03/26/2023 7:31 AM EST Normal [facility] XR Chest Single viewon 03-26 [facility] Radiology Study observation (narrative) Edis horner XR Chest Single viewOrdered By: Max Sarkar on 03-26-2023 [facility] Work Phone: Airwayon 03-25-2023 MARISABEL Yu CRNA 03/25/2023 8:06 AM Airway Date/Time: 03/25/2023 7:14 AM Urgency: scheduled Airway not difficult General Information and Staff Patient location during procedure: Procedural Resident/WEARING APPAREL SHAKER: MARISABEL Zafar CRNA Performed: SRNA Performed by: MARISABEL Yu CRNA Authorized by: MARISABEL Yu CRNA Indications and Patient Condition Indications for airway management: anesthesia Sedation level: Asleep Preoxygenated: yes Patient position: sniffing Mask difficulty assessment: 1 - vent by mask Final Airway Details Final airway type: endotracheal airway Successful airway: ETT Cuffed: yes Successful intubation technique: direct laryngoscopy Facilitating devices/methods: intubating stylet Endotracheal tube insertion site: oral Blade: Shruthi Blade size: #3 ETT size (mm): 8.0 Cormack-Lehane Classification: grade I - full view of glottis Placement verified by: chest auscultation and capnometry Measured from: lips ETT to lips (cm): 21 Number of attempts at approach: 1 Additional Comments Atraumatic, dentition & oral mucosa unchanged [facility] Arterial Lineon 03-25-2023 MARISABEL Zafar CRNA 03/25/2023 8:11 AM Arterial Line: Date/Time: 03/25/2023 7:11 AM An arterial line was placed Procedure performed using ultrasound guidance - Image permanently retained with wire or catheter in vein.in the Procedural for the following indication(s): continuous blood pressure monitoring and blood sampling needed. A 20 gauge (size), 1 and 3/4 inch (length), Arrow (type) catheter was placed, into the Right secured by Tegaderm and tape. Staffing Performed: WEARING APPAREL SHAKER Resident/WEARING APPAREL SHAKER: MARISABEL Zafar CRNA Performed by: MARISABEL Zafar CRNA Authorized by: MARISABEL Zafar CRNA [facility] BASIC METABOLIC PANELon 02-26 Anion gap [Moles/Vol] 9 mmol/L Normal 3-13 [facility] Comment on above: Performed By: #### L [id number] #### Latin American Studies Professor: SUZIE [id number]) [facility] [address] [place] [address] Calcium [Mass/Vol] 8.5 mg/dL Normal 8.4-10.4 [facility] Comment on above: Performed By: #### L [id number] #### Latin American Studies Professor: SUZIE [id number]) [facility] [address] [place] [address] Chloride [Moles/Vol] 107 mmol/L Normal 98-107 [facility] Comment on above: Performed By: #### L [id number] #### Latin American Studies Professor: SUZIE [id number]) [facility] [address] [place] [address] [place] CO2 [Moles/Vol] 21 mmol/L Low 22-30 [facility] Comment on above: Performed By: #### L AB15 #### Latin American Studies Professor: SUZIE COOK ([id number]) [facility] ([facility]) [address] [place] [address] Creatinine [Mass/Vol] 1.04 mg/dL Normal 0.66-1.25 [facility] Comment on above: Performed By: #### L AB15 #### Latin American Studies Professor: SUZIE COOK ([id number]) [facility] [address] [place] [address] GLOMERULAR FILTRATION RATE ML/MIN/1.73 SQ M.PREDICTED 80.2 mL/min/1.73m*2 Normal >60.0 [facility] Comment on above: Result Comment: Calc ulation based on the Chronic Kidney Disease Epidemiology Collaboration (CKD-EPI) equation refit without adjustment for race Performed By: #### L [id number] #### Latin American Studies Professor: SUZIE COOK ([id number]) [facility] [address] [place] [address] [place] Glucose [Mass/Vol] 136 mg/dL High 70-100 [facility] Comment on above: Performed By: #### L AB15 #### Latin American Studies Professor: SUZIE COOK ([id number]) [facility] [address] [place] [address] Potassium [Moles/Vol] 3.9 mmol/L Normal 3.5-5.1 [facility] Comment on above: Performed By: #### L AB15 #### Latin American Studies Professor: SUZIE COOK ([id number]) [facility] [address] [place] [address] [place] Sodium [Moles/Vol] 137 mmol/L Normal 135-145 [facility] Comment on above: Performed By: #### L AB15 #### Latin American Studies Professor: SUZIE COOK ([id number]) [facility] [address] [place] [address] [place] Urea nitrogen [Mass/Vol] 15 mg/dL Normal 9-20 [facility] Comment on above: Performed By: #### L AB15 #### Latin American Studies Professor: SUZIE COOK ([id number]) [facility] ([facility]) [address] [place] [address] BLOOD GAS ARTERIALon 03-25- 023 Base excess Calc (Bld) [Moles/Vol] -2.8000 mmol/L Normal -3.0-3.0 [facility] Comment on above: Performed By: #### L AB76 #### Latin American Studies Professor: SUZIE COOK ([id number]) [facility] [address] [place] [address] CO2 [Moles/Vol] 23.1 mmol/L Normal 23.0-27.0 [facility] Comment on above: Performed By: #### L AB76 #### Latin American Studies Professor: SUZIE COOK ([id number]) [facility] ([facility]) [address] [place] [address] [place] HCO3 (Bld) [Moles/Vol] 21.9 mmol/L Normal 21.0-25.0 [facility] Comment on above: Performed By: #### L AB76 #### Latin American Studies Professor: SUZIE COOK ([id number]) [facility] ([facility]) [address] [place] [address] Hemoglobin (Bld) [Mass/Vol] 8.7 g/dL Normal Screen Only [facility] Comment on above: Performed By: #### L AB76 #### Latin American Studies Professor: SUZIE COOK ([id number]) [facility] ([facility]) [address] [place] [address] OXYGEN SATURATION (%) IN ARTERIAL BLOOD 94.5 % Low 95.0-100.0 [facility] Comment on above: Performed By: #### L AB76 #### Latin American Studies Professor: SUZIE COOK ([id number]) [facility] ([facility]) [address] [place] [address] PCO2 ARTERIAL 37.3 mm Hg Normal >35.0-<45.0 [facility] Comment on above: Performed By: #### L AB76 #### Latin American Studies Professor: SUZIE COOK ([id number]) [facility] ([facility]) [address] [place] [address] PH ARTERIAL 7.387 Normal 7.350-7.450 [facility] Comment on above: Performed By: #### L AB76 #### Latin American Studies Professor: SUZIE COOK ([id number]) [facility] ([facility]) [address] [place] [address] PO2 ARTERIAL 75.0 mm Hg Low 80.0-100.0 [facility] Comment on above: Performed By: #### L AB76 #### Latin American Studies Professor: SUZIE COOK ([phone]) [facility]) [address] [place] [address] SOURCE OF OXYGEN Nasal cannula Normal [facility] Comment on above: Result Comment: 4l Performed By: #### L AB76 #### Latin American Studies Professor: SUZIE COOK ([id number]) [facility] ([facility]) [address] [place] [address] Base excess Calc (Bld) [Moles/Vol] -5.6000 mmol/L Low -3.0-3.0 [facility] Comment on above: Performed By: #### L AB15 #### Latin American Studies Professor: SUZIE COOK ([id number]) [facility] ([facility]) [address] [place] [address] CO2 [Moles/Vol] 22.0 mmol/L Low 23.0-27.0 [facility] Comment on above: Performed By: #### L AB15 #### Latin American Studies Professor: SUZIE COOK ([id number]) [facility] ([facility]) [address] [place] [address] HCO3 (Bld) [Moles/Vol] 20.6 mmol/L Low 21.0-25.0 [facility] Comment on above: Performed By: #### L AB15 #### Latin American Studies Professor: SUZIE COOK ([id number]) [facility] ([facility]) [address] [place] [address] Hemoglobin (Bld) [Mass/Vol] 8.5 g/dL Normal Screen Only [facility] Comment on above: Performed By: #### L AB15 #### Latin American Studies Professor: SUZIE COOK ([id number]) [facility] ([facility]) [address] [place] [address] OXYGEN SATURATION (%) IN ARTERIAL BLOOD 95.7 % Normal 95.0-100.0 [facility] Comment on above: Performed By: #### L AB15 #### Latin American Studies Professor: SUZIE COOK ([id number]) [facility] ([facility]) [address] [place] [address] PCO2 ARTERIAL 43.7 mm Hg Normal >35.0-<45.0 [facility] Comment on above: Performed By: #### L AB15 #### Latin American Studies Professor: SUZIE COOK ([id number]) [facility] ([facility]) [address] [place] [address] PH ARTERIAL 7.292 Low 7.350-7.450 [facility] Comment on above: Performed By: #### L AB15 #### Latin American Studies Professor: SUZIE COOK ([id number]) [facility] ([facility]) [address] [place] [address] PO2 ARTERIAL 96.0 mm Hg Normal 80.0-100.0 [facility] Comment on above: Performed By: #### L AB15 #### Latin American Studies Professor: SUZIE COOK ([id number]) [facility] ([facility]) [address] [place] [address] SOURCE OF OXYGEN 40% Oxygen Normal [facility] Comment on above: Performed By: #### L AB15 #### Latin American Studies Professor: SUZIE COOK ([id number]) [facility] ([facility]) [address] [place] [address] Base excess Calc (Bld) [Moles/Vol] -4.8000 mmol/L Low -3.0-3.0 [facility] Comment on above: Performed By: #### L AB15 #### Latin American Studies Professor: SUZIE COOK ([id number]) [facility] ([facility]) [address] [place] [address] [place] CO2 [Moles/Vol] 24.6 mmol/L Normal 23.0-27.0 [facility] Comment on above: Performed By: #### L AB15 #### Latin American Studies Professor: SUZIE COOK ([id number]) [facility] ([facility]) [address] [place] [address] HCO3 (Bld) [Moles/Vol] 22.8 mmol/L Normal 21.0-25.0 [facility] Comment on above: Performed By: #### L AB15 #### Latin American Studies Professor: SUZIE COOK ([id number]) [facility] [address] [place] [address] Hemoglobin (Bld) [Mass/Vol] 7.9 g/dL Normal Screen Only [facility] Comment on above: Performed By: #### L AB15 #### Latin American Studies Professor: SUZIE COOK ([id number]) [facility] [address] [place] [address] OXYGEN SATURATION (%) IN ARTERIAL BLOOD 98.7 % Normal 95.0-100.0 [facility] Comment on above: Performed By: #### L AB15 #### Latin American Studies Professor: SUZIE COOK ([id number]) [facility] ([facility]) [address] [place] [address] PCO2 ARTERIAL 57.2 mm Hg High >35.0-<45.0 [facility] Comment on above: Performed By: #### L AB15 #### Latin American Studies Professor: SUZIE COOK ([id number]) [facility] [address] [place] [address] PH ARTERIAL 7.219 Low 7.350-7.450 [facility] Comment on above: Performed By: #### L AB15 #### Latin American Studies Professor: SUZIE COOK ([id number]) [facility] ([facility]) [address] [place] [address] [place] PO2 ARTERIAL 156.2 mm Hg High 80.0-100.0 [facility] Comment on above: Performed By: #### L AB15 #### Latin American Studies Professor: SUZIE COOK ([id number]) [facility] ([facility]) [address] [place] [address] SOURCE OF OXYGEN ETT Normal [facility] Comment on above: Performed By: #### L AB15 #### Latin American Studies Professor: SUZIE COOK ([id number]) [facility] ([facility]) [address] [place] [address] Basic metabolic 1998 panelon 03-25-2023 Anion gap [Moles/Vol] 9 mmol/L 3 - 13 mmol/L [facility] Calcium [Mass/Vol] 8.5 mg/dL 8.4 - 10. 4 mg/dL [facility] Chloride [Moles/Vol] 107 mmol/L 98 - 10 7 mmol/L [facility] CO2 [Moles/Vol] 21 mmol/L Low 22 - 30 mmol/L [facility] Creatinine [Mass/Vol] 1.04 mg/dL 0.66 - 1.25 mg/dL [facility] GFR/1.73 sq M.predicted MDRD (S/P/Bld) [Vol rate/Area] 80.2 mL/min/{1.73_m2} - PINF [facility] Glucose [Mass/Vol] 136 mg/dL High 70 - 100 mg/dL [facility] Potassium [Moles/Vol] 3.9 mmol/L 3.5 - 5.1 mmol/L [facility] Sodium [Moles/Vol] 137 mmol/L 135 - 145 mmol/L [facility] Urea nitrogen [Mass/Vol] 15 mg/dL 9 - 20 mg/dL [facility] CALCIUM, IONIZEDon CALCIUM IONIZED 5.00 mg/dL Normal 4.30-5.20 [facility] Comment on above: Performed By: #### L AB15 #### Latin American Studies Professor: SUZIE COOK ([id number]) [facility] [address] [place] [address] PH, IONIZED CALCIUM 7.23 Low 7.31-7.46 [facility] Comment on above: Performed By: #### L AB15 #### Latin American Studies Professor: SUZIE COOK ([id number]) [facility]) [address] [place] [address] CBC (HEMOGRAM)on 03-25-2023 Erythrocyte distribution width (RBC) [Ratio] 14.2 % Normal 11.5-14.5 [facility] Comment on above: Performed By: #### L AB15 #### Latin American Studies Professor: SUZIE COOK ([id number]) [facility]) [address] [place] [address] ERYTHROCYTE MEAN CORPUSCULAR HEMOGLOBIN CONCENTRATION (G/DL) BY AUTOMATED 33.2 % Normal 32.0-36.0 [facility] Comment on above: Performed By: #### L AB15 #### Latin American Studies Professor: SUZIE COOK ([id number]) [facility]) [address] [place] [address] Hematocrit (Bld) [Volume fraction] 22.1 % Low 40.0-52.0 [facility] Comment on above: Performed By: #### L AB15 #### Latin American Studies Professor: SUZIE COOK ([id number]) [facility]) [address] [place] [address] Hemoglobin (Bld) [Mass/Vol] 7.4 g/dL Low 13.0-18.0 [facility] Comment on above: Performed By: #### L AB15 #### Latin American Studies Professor: SUZIE COOK ([id number]) [facility]) [address] [place] [address] MCH (RBC) [Entitic mass] 31.2 pg Normal 26.0-34.0 [facility] Comment on above: Performed By: #### L AB15 #### Latin American Studies Professor: SUZIE COOK ([id number]) [facility]) [address] [place] [address] MCV (RBC) [Entitic vol] 93.9 fL Normal 80.0-98.0 [facility] Comment on above: Performed By: #### L AB15 #### Latin American Studies Professor: SUZIE COOK ([id number]) [facility] ([facility]) [address] [place] [address] Platelet mean volume (Bld) [Entitic vol] 7.9 fL Normal 7.4-12.4 [facility] Comment on above: Performed By: #### L AB15 #### Latin American Studies Professor: SUZIE COOK ([id number]) [facility] ([facility]) [address] [place] [address] Platelets (Bld) [#/Vol] 173 10*3/uL Normal 140-440 [facility] Comment on above: Performed By: #### L AB15 #### Latin American Studies Professor: SUZIE COOK ([id number]) [facility]) [address] [place] [address] RBC (Bld) [#/Vol] 2.36 10*6/uL Low 4.40-5.90 [facility] Comment on above: Performed By: #### L AB15 #### Latin American Studies Professor: SUZIE COOK ([id number]) [facility] ([facility]) [address] [place] [address] WBC (Bld) [#/Vol] 15.5 10*3/uL High 3.6-10.7 [facility] Comment on above: Performed By: #### L AB15 #### Latin American Studies Professor: SUZIE COOK ([id number]) [facility] ([facility]) [address] [place] [address] CBC panel Auto (Bld)Ordered By: Jon Romeo on 03-25-2023 Erythrocyte distribution width (RBC) [Ratio] 14.2 % 11.5 - 14.5 % [facility] Hematocrit (Bld) [Volume fraction] 22.1 % Low 40.0 - 52.0 % [facility] Hemoglobin (Bld) [Mass/Vol] 7.4 g/dL Low 13.0 - 18.0 g/dL [facility] Interpretation and review of laboratory results Abnormal [facility] MCH (RBC) [Entitic mass] 31.2 pg 26. 0 - 34.0 pg [facility] MCHC (RBC) [Mass/Vol] 33.2 % 32.0 - 36.0 % [facility] MCV (RBC) [Entitic vol] 93.9 fL 80.0 - 98.0 fL [facility] Platelet mean volume (Bld) [Entitic vol] 7.9 fL 7.4 - 12.4 fL [facility] Platelets (Bld) [#/Vol] 173 10*3/uL 140 - 440 10*3/uL [facility] RBC (Bld) [#/Vol] 2.36 10*6/uL Low 4.40 - 5.9 0 10*6/uL [facility] WBC (Bld) [#/Vol] 15.5 10*3/uL High 3.6 - 10.7 10*3/uL [facility] Calcium.ionized [Moles/Vol]o n 03-25-2023 Calcium.ionized (Bld) [Moles/Vol] 5.00 mg/dL 4.30 - 5.20 mg/dL [facility] Interpretation and review of laboratory results Abnormal [facility] PH, IONIZED CALCIUM 7.23 Low 7.31 - 7.46 [facility] Central Venous Lineon 2022 MARISABEL Zafar CRNA 03/25/2023 10:10 AM Central Venous Line: Date/Time: 03/25/2023 7:28 AM A central venous line was placed for the following indication(s): CVP monitoring. Sterility preparation included the following: provider hand hygiene performed prior to central venous catheter insertion, all 5 sterile barriers used (gloves, gown, cap, mask, large sterile drape) during central venous catheter insertion, antiseptic used during central venous catheter insertion and skin prep agent completely dried prior to procedure. The patient was placed in Trendelenburg position. Right internal jugular vein was prepped. The site was prepped with Chlorhexidine. Size: 8 Italian Catheter type: introducer Number of Lumens: double lumen During the procedure, the following specific steps were taken: target vein identified, needle advanced into vein and blood aspirated and guidewire advanced into vein. Procedure performed using ultrasound guidance - Image permanently retained with wire or catheter in vein. Sterile gel and probe cover used in ultrasound-guided central venous catheter insertion. Intravenous verification was obtained by ultrasound. Post insertion care included: all ports aspirated, all ports flushed easily, guidewire removed intact, Biopatch applied, line sutured in place and dressing applied. During the procedure the patient experienced: patient tolerated procedure well with no complications. right internal jugular vein. The PAC placement was confirmed by SHAILA. The patient experienced the following events during the procedure: no complications. Staffing Performed: anesthesiologist Anesthesiologist: Yovani Booth DO Resident/WEARING APPAREL SHAKER: MARISABEL Yu CRNA Performed by: MARISABEL Yu CRNA Authorized by: MARISABEL Yu CRNA [facility] Consulton 03-25-2023 Consult Attestation signed by Mikhail Casillas MD at 03/25/2023 2:10 PM I have personally performed a face to face diagnostic evaluation on this patient today on 03/25/23. Labs, imaging studies, and electronic medical record notes on [employer] have been reviewed by me. This note documented and discussed by the []licensed mortgage loan officer []Fellow [x] GEOVANNY reflects my history, exam and medical decision making. I have reviewed and agree with the care plan. Changes were made in the orders as necessary. ROS documentation was reviewed and negative unless otherwise stated in the HPI. My history, exam, assessment and plan are as follows: Critical care time spent excluding separately billable procedures is 33 minutes. Severe CAD s/p CABG, AtriClip Hx Afib, currently sinus Expected acute blood loss anemia Post op vent management, resp acidosis Tobacco and alcohol use Hx AAA, aortoiliac endograft and b/l renal artery stents Wean sedation for SBT as tolerated later this afternoon Repeat ABG Transfuse prn PHYSICAL EXAM: General Appearance: []WDWN []Obese []Cachectic []Thin []ill Skin: Temperature []Warm []Cool Rash []Yes []No Tattoo(s) []Yes []No HEENT: Pupils round and react [x]Yes []No Sclera []Icteric []Non-Icteric Conjunctiva []Injected [x]Non-Injected Pinnae []Normal []Other Dentitian [][place] Teeth []Dentures []edentulous Oral Mucosa [x][place] []Moist []Dry Oral ETT [x]Present []Absent Neck: Trachea midline [x]Yes []No Thyromegaly []Yes []No Crepitus []Present []Absent Jvd []Present []Absent Lungs: [x]Clear []Crackles []Wheezes []Rhonchi Respiratory effort []Labored [x]Non-Labored Heart: Rate [x]Regular []Irregular []Tachycardia []Bradycardia Rhythm [x]Regular []Irregular Murmur []Present []Absent Peripheral Edema []Present [x]Absent Abdomen: [x]Soft Bowel Sounds []Present []Absent []Tender [x]Non-Tender []Distended []Non-distended Hernia []Present []Absent Organomegaly []Present []Absent []unable to assess 2/2 body habitus []Scar Extremities: Cyanosis []Present [x]Absent CLEMONS ([]RUE []RLE []LUE []LLE) Neurologic: EKUK []Yes []No Corneal reflexes []Present []Absent Plantar reflexes []Up []Down []Absent Withdraws to tactile []Yes []No Follows Commands []Yes [x]No []Unresponsive to verbal []Cranial nerves grossly intact []Sensation grossly intact Psych: Alert[]yes[x]no Oriented []x0 []x1 []x2 []x3 Affect []Normal []Flat []Agitated []Anxious [x]Calm [x]Sedated [][facility]: Critical Care Consultation Note Date: 03/25/23 PATIENT NAME: Regan Coughlin : 1960 (63 y.o.) Reason for Consult: Critical Care & Vent Management HPI: 63 yo male with PMH of CAD & STEMI s/p PCI (RCA in 2019), Afib (on Eliquis), AAA s/p fenestrated EVAR with RTOR for bilateral groin hematomas, hematuria, HTN, HPL, ETOH, current smoker. He presented to OSH ED on 01/07/23 with worsening SOB x3 weeks. Echo shoed LVEF 50% with wall motion abnormalities. He did develop Afib RVR during hospitalization and reverted back to SR. Had a heart cath on 02/16/23 which showed multivessel CAD involving LM, prox LAD, and RCA. Surgery: 03/25/23: CABG x4, MAZE, LAAL with atriclip, and LLE EVH with Dr. Villarreal Interval History: 03/25/23: POD #0: Patient arrived to the unit, intubated and sedated. Surgical hand off completed below. Review of Systems Unable to perform ROS: Intubated Allergies: Patient has no known allergies. Past Medical History: has a past medical history of AAA (abdominal aortic aneurysm) (), Afib (CMS/HCC) (), Coronary artery disease (2019), and TIA (transient ischemic attack). Past Surgical History: has a past surgical history that includes Coronary stent placement (02/2020); [place] tooth extraction; IR angiogram endovascular aortic repair (05/20/2022); and Other surgical history (Bilateral, 05/20/2022). Social History: reports that he has been smoking cigarettes. He has a 7.50 pack-year smoking history. He has never used smokeless tobacco. He reports current alcohol use of about 4.0 standard drinks of alcohol per week. He reports that he does not use drugs. Family History: family history includes No Known Problems in his father and mother. Medications: Prior to Admission medications Medication Sig Start Date End Date Taking? Authorizing Provider aspirin 81 MG EC tablet Take 81 mg by mouth daily. Yes Historical Provider, bacitracin 500 UNIT/GM ointment Apply topically See administration instructions for [address] q-tip and swab inside nostrils the night before surgery and AM of surgery. 11/1/23 Yes Deon Langston APRN - MICHAEL chlorhexidine (Peridex) 0.12 % solution (more content not included)... Normal [facility] FIBRINOGENon 03-25-2023 FIBRINOGEN 178 mg/dL Low 200-400 [facility] Comment on above: Performed By: #### L [id number] #### Latin American Studies Professor: SUZIE COOK ([id number]) [facility] ([facility]) [address] [place] [address] Fibrinogen Coag (PPP) [Mass/ Vol]on 03-25-2023 Interpretation and review of laboratory results Abnormal [facility] Laboratory - Chemistry and C hemistry - challengeon 03-25-2023 Glucose [Mass/Vol] 184 mg/dL High 70 - 100 mg/dL [facility] Glucose [Mass/Vol] 173 mg/dL High 70 - 100 mg/dL [facility] Glucose [Mass/Vol] 161 mg/dL High 70 - 100 mg/dL [facility] Glucose [Mass/Vol] 153 mg/dL High 70 - 100 mg/dL [facility] Glucose [Mass/Vol] 157 mg/dL High 70 - 100 mg/dL [facility] Glucose [Mass/Vol] 150 mg/dL High 70 - 100 mg/dL [facility] Glucose [Mass/Vol] 144 mg/dL High 70 - 100 mg/dL [facility] Glucose [Mass/Vol] 137 mg/dL High 70 - 100 mg/dL [facility] Glucose [Mass/Vol] 130 mg/dL High 70 - 100 mg/dL [facility] Glucose [Mass/Vol] 127 mg/dL High 70 - 100 mg/dL [facility] Glucose [Mass/Vol] 134 mg/dL High 70 - 100 mg/dL [facility] Magnesium [Mass/Vol] 3.5 mg/dL High 1.6 - 2 .3 mg/dL [facility] Glucose [Mass/Vol] 141 mg/dL High 70 - 100 mg/dL [facility] Laboratory - Chemistry and C hemistry - challengeOrdered By: Keiry Ortiz on 03-25-2023 Base excess Calc (Bld) [Moles/Vol] -2.8000 mmol/L -3.0 - 3.0 mmol/L [facility] CO2 (Bld) [Partial pressure] 37.3 mm[Hg] - PINF [facility] CO2 [Moles/Vol] 23.1 mmol/L 23.0 - 27.0 mmol/L [facility] HCO3 (Bld) [Moles/Vol] 21.9 mmol/L 21.0 - 25.0 mmol/L [facility] Oxygen (Bld) [Partial pressure] 75.0 mm[Hg] Low [facility] pH (Bld) 7.387 [pH] 7.350 - 7.450 [facility] Laboratory - Chemistry and C hemistry - challengeOrdered By: Denise Lyman on 03-25-2023 Base excess Calc (Bld) [Moles/Vol] -5.6000 mmol/L Low -3.0 - 3.0 mmol/L [facility] CO2 (Bld) [Partial pressure] 43.7 mm[Hg] - PINF [facility] CO2 [Moles/Vol] 22.0 mmol/L Low 23.0 - 27.0 mmol/L [facility] HCO3 (Bld) [Moles/Vol] 20.6 mmol/L Low 21.0 - 25.0 mmol/L [facility] Oxygen (Bld) [Partial pressure] 96.0 mm[Hg] [facility] pH (Bld) 7.292 [pH] Low 7.350 - 7.450 [facility] Laboratory - Chemistry and C hemistry - challengeOrdered By: Adolfo Hull on 03-25-2023 Base excess Calc (Bld) [Moles/Vol] -4.8000 mmol/L Low -3.0 - 3.0 mmol/L [facility] CO2 (Bld) [Partial pressure] 57.2 mm[Hg] High - PINF [facility] CO2 [Moles/Vol] 24.6 mmol/L 23.0 - 27.0 mmol/L [facility] HCO3 (Bld) [Moles/Vol] 22.8 mmol/L 21.0 - 25.0 mmol/L [facility] Oxygen (Bld) [Partial pressure] 156.2 mm[Hg] High [facility] pH (Bld) 7.219 [pH] Low 7.350 - 7.450 [facility] Laboratory - Coagulationon 1 05-25-2022 Fibrinogen Coag (PPP) [Mass/Vol] 178 mg/dL Low 200 - 400 mg/dL [facility] aPTT Coag (PPP) [Time] 27.6 s 20.0 - 30.5 s [facility] INR Coag (PPP) [Relative time] 1.3 {INR} High 0.9 - 1.1 [facility] PT Coag (Bld) [Time] 13.7 s High 9.0 - 1 2.0 s [facility] Laboratory - Hematology and Cell countsOrdered By: Keiry Ortiz on 03-25-2023 Hemoglobin (Bld) [Mass/Vol] 8.7 g/dL Screen Only [facility] Laboratory - Hematology and Cell countsOrdered By: Denise Lyman on 03-25-2023 Hemoglobin (Bld) [Mass/Vol] 8.5 g/dL Screen Only [facility] Laboratory - Hematology and Cell countsOrdered By: Adolfo Hull on 03-25-2023 Hemoglobin (Bld) [Mass/Vol] 7.9 g/dL Screen Only [facility] MAGNESIUMon 03-25-2023 Magnesium [Mass/Vol] 3.5 mg/dL High 1.6-2.3 [facility] Comment on above: Performed By: #### L AB15 #### Latin American Studies Professor: SUZIE COOK ([id number]) [address] No Panel Informationon 03-25 Interpretation and review of laboratory results Abnormal [facility] Interpretation and review of laboratory results Abnormal [facility] Interpretation and review of laboratory results Abnormal [facility] Interpretation and review of laboratory results Abnormal [facility] Interpretation and review of laboratory results Abnormal [facility] Interpretation and review of laboratory results Abnormal [facility] Interpretation and review of laboratory results Abnormal [facility] Interpretation and review of laboratory results Abnormal [facility] Interpretation and review of laboratory results Abnormal [facility] Interpretation and review of laboratory results Abnormal [facility] Interpretation and review of laboratory results Abnormal [facility] Interpretation and review of laboratory results Abnormal [facility] Interpretation and review of laboratory results Abnormal [facility] Interpretation and review of laboratory results Abnormal [facility] No Panel InformationOrdered By: Keiry Ortiz on 03-25-2023 Interpretation and review of laboratory results Abnormal [facility] Source Of Oxygen Nasal cannula [facility] No Panel InformationOrdered By: Denise Lyman on 03-25-2023 Interpretation and review of laboratory results Abnormal [facility] Source Of Oxygen 40% Oxygen [facility] No Panel InformationOrdered By: Adolfo Hull on 03-25-2023 Interpretation and review of laboratory results Abnormal [facility] Of O[facility] ETT [facility] Op Noteon 03-25-2023 Op Note Cardiothoracic Surgery Operative Report Pre-operative Diagnosis: Multivessel coronary artery disease, paroxysmal atrial fibrillation Post-operative Diagnosis: Multivessel coronary artery disease, paroxysmal atrial fibrillation Procedure: 1. Coronary revascularization x 4: Left internal mammary artery grafted to the left anterior descending coronary artery, reverse saphenous vein graft grafted to the first diagonal coronary artery, reverse saphenous vein graft grafted to the first obtuse marginal coronary artery, reverse saphenous vein graft grafted to the posterior descending coronary artery 2. Endoscopic vein harvesting left lower extremity, calf to thigh) 3. Radiofrequency pulmonary vein isolation and application of 40 mm AtriClip for left atrial appendage occlusion 4. Intraoperative transesophageal echocardiography Surgeon: Alfonso Villarreal MD Chess Instructor(s): [] Suresh Gardner [] Brandon Nash [x] Velasquez Cabello [] Velasquez Hernandez [] Other Anesthesia: General Estimated blood loss: Difficult to estimate due to the nature of the surgery. Cell Saver and pump suction utilized. Total IV fluids: See anesthesia and perfusion record Blood Transfusion?: No Drains: Mediastinal and left pleural drains Specimens: None Complications: None Condition: Stable upon transfer to the intensive care unit Prophylactic Antibiotics: Yes 1st or 2nd generation cephalosporin given (or other antibiotic in the event of an allergy) within 1 hour of surgical incision (two hours if receiving Vancomycin or flouroquinolone) If NO, indication reason why: [] Patient on continuous antibiotics for documented preoperative infection [] Other: The STS Risk Calculator score was calculated and discussed with the patient/family prior to surgery. Yes: [x] No: [] Not a risk calculated procedure [] Emergent or Emergent/Salvage Used of ALESSANDRA: Yes No due to: [] Subclavian stenosis [] Emergent or Emergent/Salvage [] Prior cardiothoracic surgery [] Prior mediastinal radiation [] No bypassable LAD disease, LAD not needed/bypassed: (This can include clean LAD, diffusely diseased LAD or other condition resulting in the LAD not being bypassed). Beta-evelyn within 24 hours prior to surgical incision: [x] Yes - please see documentation in EMR [] No [] Allergy [] Heart block [] COPD [] Hypotension BP: [] Bradycardia HR: INDICATIONS FOR SURGERY: In February 2020 pt had presented to ED for acute onset chest discomfort. He was taken emergently to the cardiac catheterization lab with an ST elevation IL involving the inferior wall. He underwent cardiac catheterization angioplasty and stenting of the right coronary artery. He had mild residual disease noted in the left anterior descending artery territory. EF was normal at that time. Pt presented to ED on 01/07/23 with c/o worsening SOB for 3 weeks and palpitations. An echocardiogram was completed which demonstrated a normal EF of 50% and wall motion abnormality. While hospitalized he developed afib with RVR. He converted back to NSR and was discharged home on Metoprolol and Eliquis. Pt then underwent a heart catheterization on 02/16/23 which demonstrated left main coronary artery disease with severe proximal LAD stenosis and previously stented right coronary artery which is patent and mild left ventricular systolic dysfunction. Indications for surgery are as follows: Multivessel coronary artery disease including a left main trunk stenosis. Recommend revascularization of the LAD system as well as the circumflex system. This would likely include a large first obtuse marginal coronary artery and possibly the distal circumflex. The LAD would need to be revascularized as well. Additionally, right coronary artery will need to be considered for revascularization as well although this lesion is approximately 60%. Paroxysmal atrial fibrillation-we will hold Eliquis preoperatively. Recommend left atrial appendage clip as well as pulmonary vein isolation. No valvular abnormalities are seen on the echocardiogram. While the echo also does not comment on right ventricular dysfunction, there is some scarring of the inferior wall on the left ventriculogram, which we should consider during the intraoperative transesophageal echo. Would recommend [place] catheterization for this procedure. DESCRIPTION OF PROCEDURE: Patient was taken to the operative suite and placed under general endotracheal anesthesia. Monitoring lines were inserted by the department of anesthesia. Intraoperative transesophageal echocardiography was performed. The findings will follow under separate dictation. The patient was positioned prepped and draped. After appropriate timeout a left lower extremity incision was made and the greater saphenous vein was procured using an endoscopic vein harvesting technique. The vein was prepared in his usual fashion incisions were closed in usual manner. Simultaneously, a (more content not included)... Normal [facility] PHOSPHORUSon 03-25-2023 Phosphate [Mass/Vol] 4.5 mg/dL Normal 2.5-4.5 [facility] Comment on above: Performed By: #### L AB15 #### Latin American Studies Professor: SUZIE COOK ([id number]) [facility]) [address] [place] [address] PROTIME AND APTTon aPTT Coag (Bld) [Time] 27.6 s Normal 20.0-30.5 [facility] Comment on above: Performed By: #### L AB15 #### Latin American Studies Professor: SUZIE COOK ([id number]) [facility] ([facility]) [address] [place] [address] INR Coag (PPP) [Relative time] 1.3 {INR} High 0.9-1.1 [facility] Comment on above: Result Comment: Srikanth mmended Anticoagulant Therapy: SEE BELOW ----- INR of 2.0 - 3.0 : - Prophylaxis of Venous Thrombosis (high-risk surgery) - Treatment of Venous Thrombosis - Treatment of Pulmonary Embolism (Includes tissue heart valves, Acute Myocardial Infarction to prevent systemic embolism, Valvular Heart Disease, and Atrial Fibrillation) ----- INR of 2.5 - 3.5 : - Mechanical Prosthetic Valves (high risk) - If oral anticoagulant therapy is used to prevent Myocardial Infarction Performed By: #### L AB15 #### Latin American Studies Professor: SUZIE COOK ([id number]) [facility] ([facility]) [address] [place] [address] PT Coag (PPP) [Time] 13.7 s High 9.0-12.0 [facility] Comment on above: Performed By: #### L AB15 #### Latin American Studies Professor: SUZIE COOK ([id number]) [facility] ([facility]) [address] [place] [address] Phosphate [Moles/Vol]on 02-26 Interpretation and review of laboratory results Normal [facility] Phosphate [Mass/Vol] 4.5 mg/dL 2.5 - 4 .5 mg/dL [facility] Progress Noteon 03-25-2023 Progress Note Update: Pt tolerated SBT, extubated, no resp distress, no stridor. On precedex drip, calm. Ongoing ICU care. Normal [facility] XR CHEST 1 VIEWon 03-25-2023 XR CHEST 1 VIEW Patient Name: REGAN COUGHLIN : 1960 Exam Date/Time: 03/25/2023 12:06 Procedure: XR CHEST 1 VIEW Ordering Provider: WAHL JENNIFER Reason For Exam: Post op open heart surgery CLINICAL INFORMATION: Respiratory distress. Intubation. Chest tubes. New CABG. Portable view of the chest at 1205 hours is provided and compared to a previous study dated March 19, 2023. FINDINGS: An endotracheal tube is now seen with its tip approximately 3 cm above the braxton. An enteric tube extends into the stomach. A [place] catheter is in place via the right internal jugular vein. The distal tip is in the pulmonary outflow tract. The patient is now status post CABG with the usual sternal wires and surgical clips. The cardiac silhouette and mediastinum are otherwise unremarkable. Mediastinal left-sided chest tubes are in place. There is no pneumothorax. IMPRESSION: 1. New endotracheal tube in satisfactory position. 2. CABG. 3. Chest tubes without pneumothorax. Report Dictated on Electronically Signed By: Hitesh Hawkins MD Electronically Signed Date/Time: 03/25/2023 12:58 PM EST Normal [facility] XR Chest Single viewon 03-25 [facility] Radiology Study observation (narrative) [facility] XR Chest Single viewOrdered By: Hitesh Hawkins on 03-25-2023 [facility] Work Phone: ECG 12-LEADon 03-22-2023 ECG 12-LEAD IMPRESSION: Sinus rhythm Consider left ventricular hypertrophy Nonspecific T abnormalities, lateral leads Electronically Signed On 03-22-2023 5:39:09 EST by Kristen Galarza Normal [facility] APTTon 03-20-2023 aPTT Coag (Bld) [Time] 28.0 s Normal 20.0-30.5 [facility] Comment on above: Result Comment: YOMAIRA Garcia COMMENTS: NOTE: The therapeutic time for Heparin anticoagulation, based on Xa activity inhibition, is an APTT of 46-80 seconds. Performed By: #### L AB15 #### Latin American Studies Professor: SUZIE COOK ([id number]) [facility] ([facility]) [address] [place] [address] BLOOD TYPE AND SCREEN GELon 03-20-2023 ABO GROUPING O Normal [facility] Comment on above: Performed By: #### L AB15 #### Latin American Studies Professor: SUZIE COOK ([id number]) [facility] ([facility]) [address] [place] [address] RH TYPE IN BLOOD Positive Normal [facility] Comment on above: Performed By: #### L AB15 #### Latin American Studies Professor: SUZIE COOK ([id number]) [facility] ([facility]) [address] [place] [address] CBC (HEMOGRAM)on 03-20-2023 Erythrocyte distribution width (RBC) [Ratio] 14.6 % High 11.5-14.5 [facility] Comment on above: Performed By: #### L AB15 #### Latin American Studies Professor: SUZIE COOK ([id number]) [facility] ([facility]) [address] [place] [address] ERYTHROCYTE MEAN CORPUSCULAR HEMOGLOBIN CONCENTRATION (G/DL) BY AUTOMATED 33.7 % Normal 32.0-36.0 [facility] Comment on above: Performed By: #### L AB15 #### Latin American Studies Professor: SUZIE [id number]) [facility] ([facility]) [address] [place] [address] Hematocrit (Bld) [Volume fraction] 35.9 % Low 40.0-52.0 [facility] Comment on above: Performed By: #### L AB15 #### Latin American Studies Professor: SUZIE COOK ([id number]) [facility] ([facility]) [address] [place] [address] Hemoglobin (Bld) [Mass/Vol] 12.1 g/dL Low 13.0-18.0 [facility] Comment on above: Performed By: #### L AB15 #### Latin American Studies Professor: SUZIE COOK ([id number]) [facility]) [address] [place] [address] MCH (RBC) [Entitic mass] 32.0 pg Normal 26.0-34.0 [facility] Comment on above: Performed By: #### L AB15 #### Latin American Studies Professor: SUZIE COOK ([id number]) [facility] ([facility]) [address] [place] [address] MCV (RBC) [Entitic vol] 94.9 fL Normal 80.0-98.0 [facility] Comment on above: Performed By: #### L AB15 #### Latin American Studies Professor: SUZIE COOK ([phone]) [facility]) [address] [place] [address] Platelet mean volume (Bld) [Entitic vol] 8.1 fL Normal 7.4-12.4 [facility] Comment on above: Performed By: #### L AB15 #### Latin American Studies Professor: SUZIE COOK ([phone]) [facility] ([facility]) [address] [place] [address] [place] Platelets (Bld) [#/Vol] 243 10*3/uL Normal 140-440 [facility] Comment on above: Performed By: #### L AB15 #### Latin American Studies Professor: SUZIE COOK ([id number]) [facility] ([facility]) [address] [place] [address] [place] RBC (Bld) [#/Vol] 3.78 10*6/uL Low 4.40-5.90 [facility] Comment on above: Performed By: #### L AB15 #### Latin American Studies Professor: SUZIE COOK ([id number]) [facility] ([facility]) [address] [place] [address] WBC (Bld) [#/Vol] 6.8 10*3/uL Normal 3.6-10.7 [facility] Comment on above: Performed By: #### L AB15 #### Latin American Studies Professor: SUZIE COOK ([id number]) [facility] ([facility]) [address] [place] [address] COMPLETE URINALYSISon 2022 BACTERIA (#/HPF) IN URINE Negative Normal Negative [facility] Comment on above: Performed By: #### L AB15 #### Latin American Studies Professor: SUZIE COOK ([id number]) [facility] ([facility]) [address] [place] [address] BILIRUBIN, TOTAL PRESENCE IN URINE Negative Normal Negative [facility] Comment on above: Performed By: #### L AB15 #### Latin American Studies Professor: SUZIE COOK ([id number]) [facility]) [address] [place] [address] Clarity (U) Clear Normal Clear [facility] Comment on above: Performed By: #### L AB15 #### Latin American Studies Professor: SUZIE COOK ([id number]) [facility]) [address] [place] [address] Color (U) Yellow Normal Lt. Yellow [facility] Comment on above: Performed By: #### L AB15 #### Latin American Studies Professor: SUZIE COOK ([id number]) [facility]) [address] [place] [address] [place] GLUCOSE (MG/DL) IN URINE Normal Normal Nor mal (<70) [facility] Comment on above: Performed By: #### L AB15 #### Latin American Studies Professor: SUZIE [id number]) [facility]) [address] [place] [address] HEMOGLOBIN PRESENCE IN URINE Negative Normal Negative [facility] Comment on above: Performed By: #### L AB15 #### Latin American Studies Professor: SUZIE COOK ([id number]) [facility] ([facility]) [address] [place] [address] Ketones Ql (U) Negative Normal Negative [facility] Comment on above: Performed By: #### L AB15 #### Latin American Studies Professor: SUZIE COOK ([id number]) [facility] ([facility]) [address] [place] [address] LEUKOCYTE ESTERASE PRESENCE IN URINE BY TEST STRIP Negative Normal Negative [facility] Comment on above: Performed By: #### L AB15 #### Latin American Studies Professor: SUZIE COOK ([id number]) [facility] ([facility]) [address] [place] [address] [place] MUCUS (#/LPF) IN URINE SEDIMENT Few Normal Negative [facility] Comment on above: Performed By: #### L AB15 #### Latin American Studies Professor: SUZIE COKO ([id number]) [facility] ([facility]) [address] [place] [address] NITRITE PRESENCE IN URINE Negative Normal Negative [facility] Comment on above: Performed By: #### L AB15 #### Latin American Studies Professor: SUZIE COOK ([id number]) [facility] ([facility]) [address] [place] [address] pH (U) 7.0 [pH] Normal 5.0-8.0 [facility] Comment on above: Performed By: #### L AB15 #### Latin American Studies Professor: SUZIE COOK ([id number]) [facility] ([facility]) [address] [place] [address] Protein (U) [Mass/Vol] 50 mg/dL Abnormal Negative [facility] Comment on above: Performed By: #### L AB15 #### Latin American Studies Professor: SUZIE COOK ([id number]) [facility] ([facility]) [address] [place] [address] [place] RBC (#/HPF) IN URINE SEDIMENT 6-10 Abnormal 0-2 [facility] Comment on above: Performed By: #### L AB15 #### Latin American Studies Professor: SUZIE COOK ([id number]) [facility]) [address] [place] [address] Specific gravity (U) [Rel density] 1.031 High 1.005-1.030 [facility] Comment on above: Performed By: #### L AB15 #### Latin American Studies Professor: SUZIE COOK ([id number]) [facility] ([facility]) [address] [place] [address] SQUAMOUS EPITHELIAL CELLS (#/HPF) IN URINE SEDIMENT 0-2 Normal 3-5 [facility] Comment on above: Performed By: #### L AB15 #### Latin American Studies Professor: SUZIE COOK ([id number]) [facility]) [address] [place] [address] UROBILINOGEN (MG/DL) IN URINE 2 mg/dL Abnormal Normal (0-1) [facility] Comment on above: Performed By: #### L AB15 #### Latin American Studies Professor: SUZIE COOK ([id number]) [facility]) [address] [place] [address] WBC (LEUKOCYTE) (#/HPF) IN URINE SEDIMENT 0-2 Normal 0-5 [facility] Comment on above: Performed By: #### L AB15 #### Latin American Studies Professor: SUZIE COOK ([id number]) [facility]) [address] [place] [address] COMPREHENSIVE METABOLIC PANE Benito 03-20-2023 Albumin [Mass/Vol] 4.4 g/dL Normal 3.5-5.0 [facility] Comment on above: Performed By: #### L AB103, LAB17 #### Latin American Studies Professor: SUZIE COOK ([id number]) [facility]) [address] [place] [address] ALP [Catalytic activity/Vol] 79 U/L Normal 38-126 [facility] Comment on above: Performed By: #### L AB103, LAB17 #### Latin American Studies Professor: SUZIE COOK ([id number]) [facility]) [address] [place] [address] [place] ALT [Catalytic activity/Vol] 12 U/L Normal 0-49 [facility] Comment on above: Performed By: #### L AB103, LAB17 #### Latin American Studies Professor: SUZIE COOK ([id number]) [facility]) [address] [place] [address] [place] Anion gap [Moles/Vol] 10 mmol/L Normal 3-13 [facility] Comment on above: Performed By: #### L AB103, LAB17 #### Latin American Studies Professor: SUZIE COOK ([id number]) [facility] ([facility]) [address] [place] [address] AST [Catalytic activity/Vol] 24 U/L Normal 15-46 [facility] Comment on above: Performed By: #### L AB103, LAB17 #### Latin American Studies Professor: SUZIE COOK ([id number]) [facility] ([facility]) [address] [place] [address] [place] Bilirubin [Mass/Vol] 0.7 mg/dL Normal 0.2-1.3 [facility] Comment on above: Performed By: #### L AB103, LAB17 #### Latin American Studies Professor: SUZIE COOK ([id number]) [facility] ([facility]) [address] [place] [address] [place] Calcium [Mass/Vol] 8.8 mg/dL Normal 8.4-10.4 [facility] Comment on above: Performed By: #### L AB103, LAB17 #### Latin American Studies Professor: SUZIE COOK ([id number]) [facility] ([facility]) [address] [place] [address] [place] Chloride [Moles/Vol] 103 mmol/L Normal 98-107 [facility] Comment on above: Performed By: #### L AB103, LAB17 #### Latin American Studies Professor: SUZIE COOK ([id number]) [facility] ([facility]) [address] [place] [address] [place] CO2 [Moles/Vol] 27 mmol/L Normal 22-30 [facility] Comment on above: Performed By: #### L KIT, LAB17 #### Latin American Studies Professor: SUZIE COOK ([id number]) [facility]) [address] [place] [address] [place] Creatinine [Mass/Vol] 1.07 mg/dL Normal 0.66-1.25 [facility] Comment on above: Performed By: #### L 103, LAB17 #### Latin American Studies Professor: SUZIE COOK ([id number]) [facility]) [address] [place] [address] [place] GLOMERULAR FILTRATION RATE ML/MIN/1.73 SQ M.PREDICTED 77.5 mL/min/1.73m*2 Normal >60.0 [facility] Comment on above: Result Comment: Calc ulation based on the Chronic Kidney Disease Epidemiology Collaboration (CKD-EPI) equation refit without adjustment for race Performed By: #### Akash PANTOJA, LAB17 #### Latin American Studies Professor: SUZIE COOK ([id number]) [facility]) [address] [place] [address] [place] Glucose [Mass/Vol] 90 mg/dL Normal 70-100 [facility] Comment on above: Performed By: #### L 103, LAB17 #### Latin American Studies Professor: SUZIE COOK ([id number]) [facility]) [address] [place] [address] [place] Potassium [Moles/Vol] 3.5 mmol/L Normal 3.5-5.1 [facility] Comment on above: Performed By: #### L AB103, LAB17 #### Latin American Studies Professor: SUZIE COOK ([id number]) [facility]) [address] [place] [address] [place] Protein [Mass/Vol] 7.6 g/dL Normal 6.3-8.2 [facility] Comment on above: Performed By: #### L AB103, LAB17 #### Latin American Studies Professor: SUZIE COOK ([id number]) [facility] ([facility]) [address] [place] [address] Sodium [Moles/Vol] 139 mmol/L Normal 135-145 [facility] Comment on above: Performed By: #### L AB103, LAB17 #### Latin American Studies Professor: SUZIE COOK ([id number]) [facility]) [address] [place] [address] Urea nitrogen [Mass/Vol] 18 mg/dL Normal 9-20 [facility] Comment on above: Performed By: #### L AB103, LAB17 #### Latin American Studies Professor: SUZIE COOK ([id number]) [facility]) [address] [place] [address] HEMOGLOBIN A1Con 03-20-2023 Glucose [Mass/Vol] 74 mg/dL Normal [facility] Comment on above: Performed By: #### L AB15 #### Latin American Studies Professor: SUZIE COOK ([id number]) [facility]) [address] [place] [address] HbA1c (Bld) [Mass fraction] 4.2 % Normal <5.7 [facility] Comment on above: Result Comment: Norm al less than 5.7% Prediabetes 5.7% to 6.4% Diabetes 6.5% or higher --HgbA1C levels may not be accurate in patients who have renal disease, received recent blood transfusions, are anemic, or who have dyshemoglobinemia. Performed By: #### L AB15 #### Latin American Studies Professor: SUZIE COOK ([id number]) [facility]) [address] [place] [address] MAGNESIUMon 03-20-2023 Magnesium [Mass/Vol] 2.3 mg/dL Normal 1.6-2.3 [facility] Comment on above: Performed By: #### L AB103, LAB17 #### Latin American Studies Professor: SUZIE COOK ([id number]) [facility]) [address] [place] [address] [place] MRSA BY PCRon 03-20-2023 MRSA BY PCR STAPHYLOCOCCUS AUREUS Reference Not Detected Not Detected MECA GENE Reference Not Detected Not Detected ORDER COMMENTS: No Staphylococcus aureus detected. Negative nasal MRSA PCR has a high negative predictive value for MRSA pneumonia. Consider stopping Vancomycin if no other clinical indication. Contact Antimicrobial Stewardship for further recommendations. Staphylococcus aureus nasal screen by real-time PCR. This test was modified and its performance characteristics determined by [facility]. The [place]. [place]. Food and Drug Administration has not approved or cleared this test; however, FDA clearance or approval is not currently required for clinical use. The results are not intended to be used as the sole means for clinical diagnosis or patient management decisions. Normal [facility] Comment on above: Performed By: #### L [id number] #### Latin American Studies Professor: SUZIE COOK ([phone]) [facility] ([facility]) [address] [place] [address] PREPROCINSon 03-20-2023 PREPROCINS Medication List Accurate as of March 20, 2023 11:28 AM. Always use your most recent med list. aspirin 81 MG EC tablet Notes to patient: DO NOT TAKE MORNING OF SURGERY atorvastatin 80 MG tablet Commonly known as: Lipitor bacitracin 500 UNIT/GM ointment Apply topically See administration instructions for [address]. [address] on q-tip and swab inside nostrils the night before surgery and AM of surgery. chlorhexidine 0.12 % solution Commonly known as: Peridex Use 15 mL in the mouth or throat See administration instructions for 2 doses. Swish and spit the night before surgery and AM of surgery. Eliquis 5 MG tablet Generic drug: apixaban Medication Adjustments for Surgery: Stop 5 days before surgery Notes to patient: DO NOT TAKE PRIOR TO SURGERY furosemide 40 MG tablet Commonly known as: Lasix Notes to patient: DO NOT TAKE MORNING OF SURGERY MAGNESIUM PO Notes to patient: DO NOT TAKE MORNING OF SURGERY metoprolol tartrate 25 MG tablet Commonly known as: Lopressor Notes to patient: DO NOT TAKE MORNING OF SURGERY POTASSIUM CHLORIDE PO Notes to patient: DO NOT TAKE MORNING OF SURGERY Additional Instructions: You may take your prescription pain medication. You may take Tylenol for pain. NO Motrin, ibuprofen or Advil for 24 hours prior to surgery or longer if instructed by your surgeon. NO Aleve or Naprosyn for 5 days prior to surgery or longer if instructed by your surgeon. IF YOU TAKE BLOOD THINNERS OR ASPIRIN: HOLD ELIQUIS 5 DAYS DO NOT TAKE PRIOR TO SURGERY. HOLD ASPIRIN DAY OF SURGERY Follow any instructions given to you by Dr. VILLARREAL SHOWBLAYNE THE NIGHT BEFORE AND THE MORNING OF SURGERY Shower with an antibacterial soap as the shower kit provided to you before coming to the hospital. USE MOUTH WASH AND NASAL OINTMENT PER INSTRUCTIONS No lotion, powder, deodorant or body spays. No hair products. Remove all jewelry and leave it at home. Wear loose comfortable clothing to go home in. You may brush your teeth morning of surgery. Do not wear contacts day of surgery. No tobacco products, marijuana (THC), smoking or alcohol for 24 hours prior to surgery. Please arrange for a responsible adult to drive you home after your surgery and that there is a responsible adult with you for 24 hours post discharge. If you have specific questions, please call your surgeon. You will receive a call the day before your surgery to verify your arrival time and date. You will be asked to arrive at least two hours prior to your scheduled surgery time. Please bring your current medication list with you day of surgery. We encourage you to write down any questions you may have for the surgeon, anesthesiologist, or other members of the surgical team and bring it with you the day of surgery. Please bring photo ID and insurance information. PARKING GARAGE PARK ON LEVEL ONE OF THE MAIN DECK/GARAGE, GO ACROSS THE BRIDGE TO THE HOSPITAL AND STAY ON THE FIRST FLOOR. GO TO SAME DAY SURGERY REGISTRATION DESK TO CHECK IN Normal [facility] PROTHROMBIN TIMEon 3 INR Coag (PPP) [Relative time] 1.1 {INR} Normal 0.9-1.1 [facility] Comment on above: Result Comment: Srikanth mmended Anticoagulant Therapy: SEE BELOW ----- INR of 2.0 - 3.0 : - Prophylaxis of Venous Thrombosis (high-risk surgery) - Treatment of Venous Thrombosis - Treatment of Pulmonary Embolism (Includes tissue heart valves, Acute Myocardial Infarction to prevent systemic embolism, Valvular Heart Disease, and Atrial Fibrillation) ----- INR of 2.5 - 3.5 : - Mechanical Prosthetic Valves (high risk) - If oral anticoagulant therapy is used to prevent Myocardial Infarction Performed By: #### L AB15 #### Latin American Studies Professor: SUZIE COOK ([phone]) [facility] ([address] PT Coag (PPP) [Time] 11.4 s Normal 9.0-12.0 [facility] Comment on above: Performed By: #### L AB15 #### Latin American Studies Professor: SUZIE COOK ([phone]) [facility] ([facility]) [address] [place] [address] XR CHEST 2 VIEWSon 3 XR CHEST 2 VIEWS Patient Name: REGAN COUGHLIN : 1960 Exam Date/Time: 03/20/2023 12:21 Procedure: XR CHEST 2 VIEWS Ordering Provider: GTZ NICOLE Reason For Exam: pre-op testing EXAMINATION: XR chest PA and lateral. EXAM DATE AND TIME: 03/20/2023 12:21 PM EST INDICATION: pre-op testing ADDITIONAL INFORMATION: 63-year-old male presents for preoperative evaluation COMPARISON: None TECHNIQUE: Frontal and lateral views of the chest were obtained. FINDINGS: The cardiomediastinal silhouette is within normal limits. Interstitial coarsening is seen. No focal consolidation, pleural effusion or pneumothorax. No acute osseous abnormality is demonstrated. There are degenerative changes of the spine and shoulders. Endovascular aortic stent graft is partially imaged in the upper abdomen. IMPRESSION: No acute cardiopulmonary abnormality identified. Report Dictated on Electronically Signed By: Julien Barrett MD Electronically Signed Date/Time: 03/20/2023 2:06 PM EST Pre op open heart Normal [facility] XR Chest 2 Viewson 3 No acute cardiopulmonary abnormality identified. Report Dictated on Electronically Signed By: Julien Barrett MD Electronically Signed Date/Time: 03/20/2023 2:06 PM EST [facility] Patient Name: REGAN COUGHLIN : 1960 Exam Date/Time: 03/20/2023 12:21 Procedure: XR CHEST 2 VIEWS Ordering Provider: GTZ NICOLE Reason For Exam: pre-op testing EXAMINATION: XR chest PA and lateral. EXAM DATE & TIME: 03/20/2023 12:21 PM EST INDICATION: pre-op testing ADDITIONAL INFORMATION: 63-year-old male presents for preoperative evaluation COMPARISON: None TECHNIQUE: Frontal and lateral views of the chest were obtained. FINDINGS: The cardiomediastinal silhouette is within normal limits. Interstitial coarsening is seen. No focal consolidation, pleural effusion or pneumothorax. No acute osseous abnormality is demonstrated. There are degenerative changes of the spine and shoulders. Endovascular aortic stent graft is partially imaged in the upper abdomen. [facility] Julien Barrett MD - 03/20/2023 Patient Name: REGAN COUGHLIN : 1960 Exam Date/Time: 03/20/2023 12:21 Procedure: XR CHEST 2 VIEWS Ordering Provider: GTZ NICOLE Reason For Exam: pre-op testing EXAMINATION: XR chest PA and lateral. EXAM DATE & TIME: 03/20/2023 12:21 PM EST INDICATION: pre-op testing ADDITIONAL INFORMATION: 63-year-old male presents for preoperative evaluation COMPARISON: None TECHNIQUE: Frontal and lateral views of the chest were obtained. FINDINGS: The cardiomediastinal silhouette is within normal limits. Interstitial coarsening is seen. No focal consolidation, pleural effusion or pneumothorax. No acute osseous abnormality is demonstrated. There are degenerative changes of the spine and shoulders. Endovascular aortic stent graft is partially imaged in the upper abdomen. IMPRESSION: No acute cardiopulmonary abnormality identified. Report Dictated on Electronically Signed By: Julien Barrett MD Electronically Signed Date/Time: 03/20/2023 2:06 PM EST [facility] [employer] Radiology Study observation (narrative) [facility] XR Chest 2 ViewsOrdered By: Julien Barrett on 03-20-2023 [employer] Work Phone: No Panel InformationOrdered By: Yaima Romero on 03-10-2023 Left CCA dist EDV 11.2 cm/s [facility] Work Phone: Left CCA dist PSV 51.7 cm/s [facility] Work Phone: Left CCA mid EDV 11.20 cm/s [facility] Work Phone: Left CCA mid PSV 54.50 cm/s [facility] Work Phone: Left CCA prox EDV 11.2 cm/s [facility] Work Phone: Left CCA prox PSV 59.3 cm/s [facility] Work Phone: Left ECA EDV 10.60 cm/s [facility] Work Phone: Left ECA PSV 88.6 cm/s [facility] Work Phone: Left ICA dist EDV 0.0 cm/s [facility] Work Phone: Left ICA dist PSV 0.0 cm/s [facility] Work Phone: Left ICA mid EDV 0.0 cm/s [facility] Work Phone: Left ICA mid PSV 0.0 cm/s [facility] Work Phone: Left ICA prox EDV 0.0 cm/s [facility] Work Phone: Left ICA prox PSV 0.0 cm/s [facility] Work Phone: Left ICA/CCA PSV 0.00 [facility] Work Phone: Left subclavian prox EDV 4.9 cm/s [facility] Work Phone: Left subclavian prox PSV 91.8 cm/s [facility] Work Phone: Left vertebral EDV 24.80 cm/s [facility] Work Phone: Left vertebral PSV 70.7 cm/s [facility] Work Phone: Right CCA dist EDV 21.3 cm/s [facility] Work Phone: Right cca dist PSV 75.8 cm/s [facility] Work Phone: Right CCA mid EDV 18.10 cm/s [employer] [facility] Work Phone: Right CCA mid PSV 74.70 cm/s [employer] [facility] Work Phone: Right CCA prox EDV 16.2 cm/s [employer] Work Phone: Right CCA prox PSV 70.7 cm/s [employer] Work Phone: Right ECA EDV 5.70 cm/s [employer] Work Phone: Right ECA PSV 108.5 cm/s [employer] Work Phone: Right ICA dist EDV 19.0 cm/s [employer] Work Phone: Right ICA dist PSV 50.1 cm/s [employer] Work Phone: Right ICA mid EDV 17.5 cm/s [facility] [employer] Work Phone: Right ICA mid PSV 60.1 cm/s [facility] [employer] Work Phone: Right ICA prox EDV 31.2 cm/s [employer] Work Phone: Right ICA prox PSV 116.5 cm/s [facility] [employer] Work Phone: Right ICA/CCA PSV 1.56 [facility] [employer] Work Phone: Right subclavian prox EDV 0.0 cm/s [employer] Work Phone: Right subclavian prox PSV 112.5 cm/s [employer] Work Phone: Right vertebral EDV 20.30 cm/s [employer] Work Phone: Right vertebral PSV 60.9 cm/s [employer] Work Phone: No Panel Informationon 03-10 <50% stenosis in the right internal carotid artery. Mild, heterogeneous and calcific plaque (proximal) in the right internal carotid artery. Occluded left internal carotid artery. Normal antegrade flow involving the right vertebral artery. Normal antegrade flow involving the left vertebral artery. Right Carotid Common Carotid Artery: Patent. Mild and heterogeneous plaque (distal). Internal Carotid Artery: <50% stenosis. Mild, heterogeneous and calcific plaque (proximal). External Carotid Artery: <50% stenosis. Mild, heterogeneous and calcific plaque (proximal). Vertebral Artery: Flow is antegrade. Subclavian Artery: Normal. Left Carotid Common Carotid Artery: Patent. Mild and heterogeneous plaque (distal). Internal Carotid Artery: Occluded. External Carotid Artery: <50% stenosis. Mild and heterogeneous plaque (prox). Vertebral Artery: Flow is antegrade. Subclavian Artery: Normal. Joint Finisher Details A portillo scale, color Doppler imaging and spectral Doppler analysis ultrasound was performed. During the study longitudinal and transverse views were obtained. Pulsed wave doppler was performed. The exam was performed with the patient in the supine position. Overall the study quality was adequate. CV CPACS Vascular US upper extremity arterial PVROrdered By: Yaima Romero on 03-10-2023 Left arm BP 126 mmHg [facility] [employer] Work Phone: Left Prox Radial A BP 177 mmHg [employer] Work Phone: Left Prox Ulnar A BP 151 mmHg [employer] Work Phone: Left WBI 1.39 [facility] [employer] Work Phone: Right arm BP 127 mmHg [employer] Work Phone: Right Prox Radial A BP 168 mmHg [facility] Work Phone: Right Prox Ulnar A BP 174 mmHg [employer] Work Phone: Right WBI 1.37 [facility] [employer] Work Phone: Vascular US upper extremity arterial PVRon 03-10-2023 Right side findings: WBI is 1.37. This is normal. Left side findings: WBI is 1.39. This is normal. There is diminished right PPG waveforms with radial artery compression indicative of incomplete arch. There is diminished left PPG waveforms with radial artery compression indicative of incomplete arch. Right Upper Arterial Lower arm PVR waveforms: normal. 1st digit PVR waveforms: normal. 2nd digit PVR waveforms: normal. 3rd digit PVR waveforms: normal. 4th digit PVR waveforms: normal. 5th digit PVR waveforms: normal. Normal wrist brachial index (WBI). There is diminished right PPG waveforms with radial artery compression indicative of incomplete arch. Left Upper Arterial Lower arm PVR waveforms: normal. 1st digit PVR waveforms: normal. 2nd digit PVR waveforms: normal. 3rd digit PVR waveforms: normal. 4th digit PVR waveforms: normal. 5th digit PVR waveforms: normal. Normal wrist brachial index (WBI). There is diminished left PPG waveforms with radial artery compression indicative of incomplete arch. Joint Finisher Details A spectral Doppler analysis ultrasound was performed. Continuous wave doppler, pulsed volume recording (PVR) and photo plethysmography was performed. The exam was performed with the patient in the supine position. Overall the study quality was adequate. CV CPACS 36on 02-25-2023 36 Meds sent to [facility] in [place]. Surg pro orders placed. Deon Langston APRN - CONCRETE BLOCK MAKER 02/25/23 Normal [facility] Office Visiton 02-24-2023 Follow-up visit [id number] Regan Coughlin 1960 M Date Provider Department Center 02/24/2023 [id number] [place] Family History Problem Relation Age of Onset No Known Problems Mother No Known Problems Father Family Status - Relation Status Age at Mother Father Level of Service:15292 SD OFFICE/OUTPATIENT NEW HIGH MDM 60-74 MINUTES Reason for Visit and Comments: New Patient [542] Normal [facility] Progress Noteon 02-24-2023 Progress Note [facility] CARDIOVASCULAR & THORACIC SURGERY [address] [facility] [address] Dept: [phone] Dept Loc: [phone] Visit type: New Reason for Visit: Surgical evaluation for multivessel coronary artery disease Assessment and plan Multivessel coronary artery disease including a left main trunk stenosis. Recommend revascularization of the LAD system as well as the circumflex system. This would likely include a large first obtuse marginal coronary artery and possibly the distal circumflex. The LAD would need to be revascularized as well. Additionally, right coronary artery will need to be considered for revascularization as well although this lesion is approximately 60%. Paroxysmal atrial fibrillation-we will hold Eliquis preoperatively. Recommend left atrial appendage clip as well as pulmonary vein isolation. No valvular abnormalities are seen on the echocardiogram. While the echo also does not comment on right ventricular dysfunction, there is some scarring of the inferior wall on the left ventriculogram, which we should consider during the intraoperative transesophageal echo. Would recommend [place] catheterization for this procedure. Preprocedurally, we will obtain renal artery studies, CT scan of the chest to assess the aorta, and carotid Dopplers to rule out concomitant carotid artery disease. The risk benefits and alternatives to surgery were discussed in detail with the patient and he wishes to proceed on an elective basis. History of Present Illness Regan Coughlin is a 63 y.o. male referred by Dr. Gutierrez for coronary revascularization. Per note, in February 2020 pt had presented to ED for acute onset chest discomfort. He was taken emergently to the cardiac catheterization lab with an ST elevation IL involving the inferior wall. He underwent cardiac catheterization angioplasty and stenting of the right coronary artery. He had mild residual disease noted in the left anterior descending artery territory. EF was normal at that time. Pt presented to ED on 01/07/23 with c/o worsening SOB for 3 weeks and palpitations. An echocardiogram was completed which demonstrated a normal EF of 50% and wall motion abnormality. While hospitalized he developed afib with RVR. He converted back to NSR and was discharged home on Metoprolol and Eliquis. Pt then underwent a heart catheterization on 02/16/23 which demonstrated left main coronary artery disease with severe proximal LAD stenosis and previously stented right coronary artery which is patent and mild left ventricular systolic dysfunction. Pt is current smoker. Pt is currently taking Eliquis. Pt is here now for an evaluation. Past Medical History Past Medical History: Diagnosis Date AAA (abdominal aortic aneurysm) Coronary artery disease 2019 2x stents, Dr. Eulalio Gutierrez at [facility] TIA (transient ischemic attack) Past Surgical History Past Surgical History: Procedure Laterality Date CORONARY STENT PLACEMENT 02/2020 x2 IR ANGIOGRAM ENDOVASCULAR AORTIC REPAIR 05/20/2022 OPEN FEMORAL ARTERY EXPOSURE FOR DELIVERY OF ENDOVASCULAR PROSTHESIS OTHER SURGICAL HISTORY Bilateral 05/20/2022 Exploration groin, evacuation of hematoma WISDOM TOOTH EXTRACTION Family History Family History Problem Relation Name Age of Onset No Known Problems Mother No Known Problems Father Social History Social History Tobacco Use Smoking status: Every Day Packs/day: 0.25 Years: 30.00 Additional pack years: 0.00 Total pack years: 7.50 Types: Cigarettes Smokeless tobacco: Never Tobacco comments: 4 ciggs per day Vaping Use Vaping Use: Never used Substance Use Topics Alcohol use: Yes Alcohol/week: 4.0 standard drinks of alcohol Types: 4 Shots of liquor per week Drug use: Never Allergies No Known Allergies Medications Current Outpatient Medications: aspirin 81 MG EC tablet, Take 81 mg by mouth daily., Disp: , Rfl: atorvastatin (Lipitor) 80 MG tablet, Take 80 mg by mouth Nightly., Disp: , Rfl: Eliquis 5 MG tablet, Take 5 mg by mouth 2 times daily., Disp: , Rfl: furosemide (Lasix) 40 MG tablet, Take 40 mg by mouth daily., Disp: , Rfl: metoprolol tartrate (Lopressor) 25 MG tablet, Take 25 mg by mouth 2 times daily., Disp: , Rfl: POTASSIUM CHLORIDE PO, Take 1 tablet by mouth daily., Disp: , Rfl: clopidogrel (Plavix) 75 MG tablet, Take 75 mg by mouth daily., Disp: , Rfl: Review of Systems Review of Systems Constitutional: Positive for fatigue. Cardiovascular: Positive for palpitations. All other systems reviewed and are negative. Physical Exam Vitals: There were no vitals taken for this visit. Constitutional: General: Not in acute distress. Appearance: Normal appearance. Not toxic-appearing. Ear, nose, mouth: Bilateral external ear and nose normal. Nose: Nose normal. Mouth: Appearance normal, no bleeding, twin (more content not included)... Normal [facility] Basophil percentageOrdered B y: Eulalio Gutierrez on 02-16-2023 Potassium [Moles/Vol] 3.1 mmol/L 3.5-5.1 [facility] Comment on above: Performed By: #### L [id number] #### [facility] [address] [place], [address] Cardiac Cath Diagnosticon Cardiac Cath Diagnostic [facility] [address] [place] [address] Cardiac Cath Diagnostic MR#: [id number] Acct: [id number] Name: LORRI COUGHLIN Rep #: [id number] : 1960 63 From: Eulalio Gutierrez MD PCP: Dr. Sophie Craft MD Status:[facility] [place] Patient Name: LORRI COUGHLIN Study Date: 02/16/2023 Performing: Eulalio Gutierrez MD Ht: 69 inches 175.26 cm : 1960 Wt: 156 lbs 70.76 kg Age: 63 Gender: male BSA: 1.86 PROCEDURE(S) PERFORMED DC02-([id number])[facility] CLINICAL PROFILE AND INDICATIONS Indications: Cardiomyopathy Heart Failure: None Stress/Imaging Stress/Image Study Performed: No CAD Presentations: Non-STEMI. Symptom onset Date/Time: 01/14/23 Time Not Available CONCLUSIONS Left main coronary artery disease with severe proximal LAD stenosis and previously stented right coronary artery which is patent and mild left ventricular systolic dysfunction. RECOMMENDATIONS Surgery consult for coronary revascularization DESCRIPTION OF PROCEDURE The patient arrived to the procedure lab. The risks and benefits of the procedure as well as a full description of our services here and current unavailability of surgical backup were fully explained to the patient and/or their significant other prior to the catheterization. The Timeout was completed, verifying the correct patient and procedure. The patient's procedural site was prepped and draped in the usual fashion. Local anesthetic was given subcutaneously to right radial region with Lidocaine 2%. Using a modified Seldinger technique, arterial access was obtained via the right radial artery, a 6Fr sheath was inserted. Left Coronary Artery selective angiography was performed in multiple views using a 5 Fr. 4.0 [place] catheter. Right Coronary Artery selective angiography was then performed in multiple views using a 5 Fr. 4.0 [place] catheter. Left Ventriculography was performed in RUIZ projection using a 5 Fr. Pigtail catheter. LV to AO pullback pressures were then recorded.The arterial sheath was pulled and a TR Band was applied for hemostasis CORONARY ANGIOGRAPHY DOMINANCE: Right Dominant LEFT HEART ASSESSMENT Left Ventricular Ejection Fraction: by LV Gram 45 % Inferior Basal Akinesis. Inferior Mid Hypokinesis - Severe. Anterior Hypokinesis - Mild Depressed Left Ventricular systolic function LEFT MAIN: 50 to 60% stenosis with dampening of pressure and mild calcification. LEFT ANTERIOR DESCENDING ARTERY: Medium size vessel with mild calcification and proximal high-grade 80% stenosis involving the takeoff of a first diagonal vessel which is large. CIRCUMFLEX ARTERY: Mild proximal calcification and eccentric first obtuse marginal branch with 70% stenosis present. RIGHT CORONARY ARTERY: Dominant vessel previously stented with 40% in-stent stenosis in the proximal stent COMPLICATIONS No Complications PROCEDURE MEDICATIONS Fentanyl 50 mcg IV Versed 1 mg IV Versed 1 mg IV Versed 1 mg IV Oxygen: 2 L/min via nasal cannula Heparin given IA 02/16/2023 08:31:32 Verapamil 2.5mg, Ntg 100mcgs, 3000 units of Heparin given IA 02/16/2023 08:31:32 SUMMARY OF HEMODYNAMIC DATA Time AIR REST ECG 07:19:58 ECG 08:12:30 AO 158/84 (117) SA 08:35:01 LV 139/8, 23 08:44:00 LV 139/10, 24 08:44:09 LVp 122/8, 23 08:44:47 LV 122/7, 29 08:44:51 AOp 121/-8 (50) 08:44:54 Signed By Eulalio Gutierrez MD On 02/16/2023 08:59:15 Eulalio Gutierrez MD 02/16/23 0900 Date [facility]rez [facility] Signature: Date (if indicated) CC: Dr. Eulalio Gutierrez MD; Dr. Sophie Craft MD Date Dictated: 02/16/23821 Date Transcribed: 02/16/23858 Precision Lens Technician: CO Signed [facility] 12 Lead [place] [facility] [place] 01-23-2023 12 Lead EKG performed by [facility] [address] [place] [address] 12 Lead EKG performed by [facility] 01/23/23 1008 MR#: [id number] Acct: [id number] Name: LORRI COUGHLIN Rep #: [id number] : 1960 63 From: Gabbie Paris GEOGRAPHIC INFORMATION SYSTEMS MANAGER GEOGRAPHIC INFORMATION SYSTEMS MANAGER-C Attending Dr: Gabbie Paris GEOGRAPHIC INFORMATION SYSTEMS MANAGER-C Status: DEP A RADHA Ordering Dr: Gabbie Paris GEOGRAPHIC INFORMATION SYSTEMS MANAGER GEOGRAPHIC INFORMATION SYSTEMS MANAGER-C Date: 01/23/23 Location: [facility] [place] Sex: M C Admitted: BMS/12 Lead EKG performed by [facility] ECG Report Interpretation ------Sinus Rhythm -Left atrial enlargement. Voltage criteria for LVH (S(V1)+R(V5) exceeds 4.00 mV). - Negative T-waves -Possible Anterolateral ischemia. ABNORMAL Electronically signed on 01/31/2023 at 11:17 by Eulalio Gutierrezwood [employer] Version [id number] 01/31/23 1120 Date Gabbie Paris NP GEOGRAPHIC INFORMATION SYSTEMS MANAGER-C CC: Dr. Sophie Craft MD Date Dictated: 01/23/23 1008 Date Transcribed: 01/23/231007 Precision Lens Technician: PEGGY Signed Normal [facility] Absolute lymphocyte countOrd ered By: Gabbie Paris on 01-23-2023 Lymphocytes Auto (Unsp spec) [#/Vol] 1.20 10*3/uL 0.83-4.51 [facility] Basophil percentageOrdered B y: Gabbie Paris on 01-23-2023 Basophils/100 WBC (Bld) 0.5 % 0-1 [facility] Eosinophils/100 WBC (Bld) 0.8 % 0-5 [facility] Neutrophils (Bld) [#/Vol] 6.7 10*3/uL 2.0-7.7 [facility] Neutrophils/100 WBC (Bld) 76.7 % 47-70 [facility] WBC (Bld) [#/Vol] 8.7 10*3/uL 4.4-11.0 [facility] Basophil percentageOrdered B y: Sophie Craft on 01-23-2023 Bilirubin [Mass/Vol] 0.80 mg/dL 0.20-1.00 [facility] Comment on above: For patients on eltr ombopag therapy, use of Dimension [place] TBIL is not recommended. Chloride [Moles/Vol] 104 mmol/L 98-107 [facility] Glucose [Mass/Vol] 86 mg/dL 74-106 [facility] Potassium [Moles/Vol] 3.1 mmol/L 3.5-5.1 [facility] Protein [Mass/Vol] 6.4 g/dL 6.4-8.2 [facility] Sodium [Moles/Vol] 139 mmol/L 136-145 [facility] Blood erythrocytes count (nu mber/volume)Ordered By: Gabbie Paris on 01-23-2023 RBC (Bld) [#/Vol] 3.28 10*6/uL 4.6-6.2 [facility] Blood hemoglobin measurement (mass/volume)Ordered By: Gabbie Paris on 01-23-2023 Hemoglobin (Bld) [Mass/Vol] 10.7 g/dL 13.0-16.5 [facility] Blood lymphocytes/100 leukoc ytesOrdered By: Gabbie Paris on 01-23-2023 Lymphocytes/100 WBC (Bld) 13.7 % 19-41 [facility] Blood monocytes/100 leukocyt esOrdered By: Gabbie Paris on 01-23-2023 Monocytes/100 WBC (Bld) 7.7 % 0-10 [facility] Blood platelet mean volumeOr dered By: Gabbie Paris on 01-23-2023 Platelet mean volume (Bld) [Entitic vol] 9.8 fL 6.2-12.0 [facility] CBC W/Diff, Automatedon 12-27 Absolute Lymph 1.20 X10 3/uL Normal 0.83-4.51 [facility] Comment on above: Performed By: #### L [id number], L501.2300 #### [facility] [address] [place], [place], [id number] Absolute Neut 6.7 X10 3/uL Normal 2.0-7.7 [facility] Comment on above: Performed By: #### L 501.5200, L501.2300 #### [facility] [address] [place], [address] Basophils/100 WBC (Bld) 0.5 % Normal 0-1 [facility] Comment on above: Performed By: #### L 501.5200, L501.2300 #### [facility] [address] [place], [address] Eosinophils/100 WBC (Bld) 0.8 % Normal 0-5 [facility] Comment on above: Performed By: #### L 501.5200, L501.2300 #### [facility] [address] [place], [address] Erythrocyte distribution width (RBC) [Ratio] 13.3 % Normal 11.6-14.6 [facility] Comment on above: Performed By: #### L 501.5200, L501.2300 #### [facility] [address] [place], [address] Hematocrit (Bld) [Volume fraction] 33.1 % Low 40-54 [facility] Comment on above: Performed By: #### L 501.5200, L501.2300 #### [facility] [address] [place], [address] Hemoglobin (Bld) [Mass/Vol] 10.7 g/dL Low 13.0-16.5 [facility] Comment on above: Performed By: #### L 501.5200, L501.2300 #### [facility] [address] [place], [address] IG% 0.600 Normal 0.0-0.9 [facility] Comment on above: Result Comment: IG% - Immature Granulocytes (promyelocytes, myelocytes and metamyelocytes) > 1% indicates that a LEFT SHIFT is Present. Performed By: #### L 501.5200, L501.2300 #### [facility] [address] [place], [address] Lymphocytes/100 WBC (Bld) 13.7 % Low 19-41 [facility] Comment on above: Performed By: #### L 501.5200, L501.2300 #### [facility] [address] [place], [address] MCH (RBC) [Entitic mass] 32.6 pg High 27.0-32.0 [facility] Comment on above: Performed By: #### L 501.5200, L501.2300 #### [facility] [address] [place], [address] MCHC (RBC) [Mass/Vol] 32.3 g/dL Normal 32-36 [facility] Comment on above: Performed By: #### L 501.5200, L501.2300 #### [facility] [address] [place], [address] MCV (RBC) [Entitic vol] 100.9 fL High 80-94 [facility] Comment on above: Performed By: #### L 501.5200, L501.2300 #### [facility] [address] [place], [address] Monocytes/100 WBC (Bld) 7.7 % Normal 0-10 [facility] Comment on above: Performed By: #### L 501.5200, L501.2300 #### [facility] [address] [place], [address] Neutrophils/100 WBC (Bld) 76.7 % High 47-70 [facility] Comment on above: Performed By: #### L 501.5200, L501.2300 #### [facility] [address] [place], [address] Nucleated RBC (Bld) [#/Vol] 0 10*3/uL Normal 0-5 [facility] Comment on above: Performed By: #### L 501.5200, L501.2300 #### [facility] [address] [place], [address] Platelet mean volume (Bld) [Entitic vol] 9.8 fL Normal 6.2-12.0 [facility] Comment on above: Performed By: #### L 501.5200, L501.2300 #### [facility] [address] [place], [address] Platelets (Bld) [#/Vol] 295 10*3/uL Normal 150-450 [facility] Comment on above: Performed By: #### L 501.5200, L501.2300 #### [facility] [address] [place], [address] RBC (Bld) [#/Vol] 3.28 10*6/uL Low 4.6-6.2 [facility] Comment on above: Performed By: #### L 501.5200, L501.2300 #### [facility] [address] [place], [address] RDW SD 49.6 fl High 35.1-43.9 [facility] Comment on above: Performed By: #### L 501.5200, L501.2300 #### [facility] [address] [place], [address] WBC (Bld) [#/Vol] 8.7 10*3/uL Normal 4.4-11.0 [facility] Comment on above: Performed By: #### L 501.5200, L501.2300 #### [facility] [address] [place], [address] Cardiology Visit Reporton Cardiology Visit Report [facility] [address] [place] [address] OFFICE VISIT Date of Service: 01/23/23 MR#: [id number] Acct: [id number] Name: LORRI COUGHLIN Rep #: [id number] : 1960 Provider: ROBERTO perez Age/Sex: 63/M [facility] [facility] Status: Signed HPI [facility] History of Present Illness Surgical H P: Yes Details: This is a pleasant 63 year old gentleman who presents to the office today for a cardiovascular hospital follow-up. In February 2020 he had presented for acute onset chest discomfort. He was taken emergently to the cardiac catheterization lab with an ST elevation myocardial infarction involving the inferior wall. He underwent cardiac catheterization angioplasty and stenting of the right coronary artery. He had mild residual disease noted in the left anterior descending artery territory. His ejection fraction was noted to be normal at that time. He also has a previous history of tobacco abuse. Patient presented to the emergency room on 01/07/2023 with complaints of worsening shortness of breath for three weeks, and palpitations. His blood pressure was also elevated in the emergency room. His troponins were elevated as well, this was thought to be secondary to demand ischemia from acute on chronic heart failure. During hospitalization he was given IV Lasix. An echocardiogram was obtained which demonstrated a normal ejection fraction of 50%, and wall motion abnormality. While hospitalized, he did develop atrial fibrillation with RVR. Prior to discharge, he did convert to normal sinus rhythm. He was discharged home on metoprolol 25 mg twice daily, and Eliquis 5 mg twice daily. From a cardiac standpoint, the patient is doing well. He does acknowledge occasional palpitations. He describes this as a fast heart beat. This is new over the last month. He states that since incre asing his metoprolol this has helped. He denies chest pain, pressure or heaviness. He denies SOB, Orthopnea, and PND. He does not have any bleeding issues; no blood in urine, stool or nosebleeds. He does acknowledge a decrease in energy level. He denies myalgias, or claudication. He does not have edema, or sudden weight gain. He denies dizziness, lightheadedness, syncopal or near syncopal episodes, and headaches. 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: No Is patient in pain?: No Allergies No Known Allergies Allergy (Verified 01/23/23 10:35) Medications aspirin 81 mg tablet,delayed release 81 mg PO DAILY@0800 HEALTH MAINTENANCE 10/30/21 [History Confirmed 01/23/23] furosemide 40 mg tablet 40 mg PO DAILY #30 tabs 01/21/23 [Rx Confirmed 01/23/23] apixaban 5 mg tablet (Eliquis) 5 mg PO BID #180 tabs 01/23/23 [Rx Confirmed 01/23/23] atorvastatin 80 mg tablet 80 mg PO QHS hyperlipidemia #90 tabs 01/23/23 [Rx Confirmed 01/23/23] metoprolol tartrate 25 mg tablet 25 mg PO BID #180 tabs 01/23/23 [Rx Confirmed 01/23/23] Nurse's Note: Patient does not know medications [facility] Medical History (Updated 01/23/23 @ 10:46 by Gabbie Paris NP, GEOGRAPHIC INFORMATION SYSTEMS MANAGER-C) Atherosclerotic heart disease of [place] coronary artery without angina pectoris History of ST elevation myocardial infarction (STEMI) (03/22/20) Nicotine dependence Non-sustained ventricular tachycardia (03/24/20) Old inferior wall myocardial infarction (03/22/20) Surgical History (Updated 01/23/23 @ 12:59 by Gabbie Paris NP, GEOGRAPHIC INFORMATION SYSTEMS MANAGER-C) History of coronary artery stent placement (03/22/20) Family History Father Colon cancer Social History Smoking Status: Current every day smoker tobacco type: cigarettes Tobacco: How many years used: 40 alcohol intake: never substance use type: does not use what type of physical activity do you participate in: none ROS Const Const: Positive for fatigue; Negative for weakness, fever(s), headache(s), chills, frequent falls, weight gain or weight loss Eyes Eyes: Negative for blind spots, loss of peripheral vision, transient loss of vision, blurry vision, change in vision, double vision, floaters or tunnel vision ENT ENT: Negative for headache(s), dizziness, Nosebleed/epistaxis, balance problems or neck pain Cardio Chest Pain: No Palpitations: Yes (improved since increasing metoprolol) Edema: None Muscle aches with walking: None Resp Respiratory: Negative for SOB with activity, SOB at rest or SOB orthopnea SOB lying down GI GI: Negative nausea, vomiting, heartburn, bloating, vomiti (more content not included)... Normal [facility] Comprehensive Metabolic Prof ilon 01-23-2023 Albumin [Mass/Vol] 3.2 g/dL Normal 3.2-5.0 [facility] Comment on above: Performed By: #### L 500.4050, L501.5200 #### [facility] [address] [place], [address] Albumin/Globulin [Mass ratio] 1.0 {ratio} Normal 0.9-2.4 [facility] Comment on above: Performed By: #### L 500.4050, L501.5200 #### [facility] [address] [place], [address] ALK P 76 U/L Normal 45-117 [facility] Comment on above: Performed By: #### L 500.4050, L501.5200 #### [facility] [address] [place], [address] ALT [Catalytic activity/Vol] 75 U/L High 16-61 [facility] Comment on above: Performed By: #### L 500.4050, L501.5200 #### [facility] [address] [place], [address] AST [Catalytic activity/Vol] 30 U/L Normal 15-37 [facility] Comment on above: Performed By: #### L 500.4050, L501.5200 #### [facility] [address] [place], [address] Bilirubin [Mass/Vol] 0.80 mg/dL Normal 0.20-1.00 [facility] Comment on above: Result Comment: For patients on eltrombopag therapy, use of Dimension [place] TBIL is not recommended. Performed By: #### L 500.4050, L501.5200 #### [facility] [address] [place], [address] BUN/CRE 17.9 RATIO Normal 10-20 [facility] Comment on above: Performed By: #### L 500.4050, L501.5200 #### [facility] [address] [place], [address] CA,Total 8.2 mg/dL Low 8.5-10.1 [facility] Comment on above: Performed By: #### L 500.4050, L501.5200 #### [facility] [address] [place], [address] Chloride [Moles/Vol] 104 mmol/L Normal 98-107 [facility] Comment on above: Performed By: #### L 500.4050, L501.5200 #### [facility] [address] [place], [address] CO2 [Moles/Vol] 32.0 mmol/L Normal 21.0-32.0 [facility] Comment on above: Performed By: #### L 500.4050, L501.5200 #### [facility] [address] [place], [address] Creatinine [Mass/Vol] 1.23 mg/dL Normal 0.70-1.30 [facility] Comment on above: Result Comment: The validity of the calculated GFR GFRAA in patients over 70 years has not been determined. Clinical correlation is essential. Performed By: #### L 500.4050, L501.5200 #### [facility] [address] [place], [address] EST GFR - AA 76 mL/min Normal >60 [facility] Comment on above: Result Comment: Afri can [place]inese GFR Calc Performed By: #### L 500.4050, L501.5200 #### [facility] [address] [place], [address] GAP 3 Low 5-15 [facility] Comment on above: Performed By: #### L 500.4050, L501.5200 #### [facility] [address] [place], [address] GFR/1.73 sq M.predicted among non-blacks MDRD (S/P/Bld) [Vol rate/Area] 63 mL/min/{1.73_m2} Normal >60 [facility] Comment on above: Result Comment: Non- GFR Calc Performed By: #### L 500.4050, L501.5200 #### [facility] [address] [place], [address] Globulin (S) [Mass/Vol] 3.2 g/dL Normal 2.2-4.2 [facility] Comment on above: Performed By: #### L 500.4050, L501.5200 #### [facility] [address] [place], [address] Glucose [Mass/Vol] 86 mg/dL Normal 74-106 [facility] Comment on above: Performed By: #### L 500.4050, L501.5200 #### [facility] [address] [place], [address] Potassium [Moles/Vol] 3.1 mmol/L Low 3.5-5.1 [facility] Comment on above: Performed By: #### L 500.4050, L501.5200 #### [facility] [address] [place], [address] Sodium [Moles/Vol] 139 mmol/L Normal 136-145 [facility] Comment on above: Performed By: #### L 500.4050, L501.5200 #### [facility] [address] [place], [address] T PROT 6.4 g/dL Normal 6.4-8.2 [facility] Comment on above: Performed By: #### L 500.4050, L501.5200 #### [facility] [address] [place], [address] Urea nitrogen [Mass/Vol] 22 mg/dL High 7-18 [facility] Comment on above: Performed By: #### L 500.4050, L501.5200 #### [facility] [address] [place], [address] Determination of erythrocyte mean corpuscular volume (MCV)Ordered By: Gabbie Paris on 01-23-2023 MCV (RBC) [Entitic vol] 100.9 fL 80-94 [facility] Hematocrit Auto (Bld) [Volum e fraction]Ordered By: Gabbie Paris on 01-23-2023 Hematocrit (Bld) [Volume fraction] 33.1 % 40-54 [facility] - Chemistry and C hemistry - challengeOrdered By: Sophie Craft on 01-23-2023 ALP [Catalytic activity/Vol] 76 U/L 45-117 [facility] ALT [Catalytic activity/Vol] 75 U/L 16-61 [facility] CO2 [Moles/Vol] 32.0 mmol/L 21.0-32.0 [facility] Globulin (S) [Mass/Vol] 3.2 g/dL 2.2-4.2 [facility] Magnesium [Mass/Vol] 2.6 mg/dL 1.6-2.6 [facility] Urea nitrogen/Creatinine [Mass ratio] 17.9 mg/mg 10-20 [facility] - Hematology and Cell countsOrdered By: Gabbie Paris on 01-23-2023 Erythrocyte distribution width (RBC) [Entitic vol] 49.6 fL 35.1-43.9 [facility] Erythrocyte distribution width (RBC) [Ratio] 13.3 % 11.6-14.6 [facility] Immature granulocytes/100 WBC (Bld) 0.600 % 0.0-0.9 [facility] Comment on above: IG% - Immature Granu locytes (promyelocytes, myelocytes and metamyelocytes) > 1% indicates that a LEFT SHIFT is Present. MCH (RBC) [Entitic mass] 32.6 pg 27.0-32.0 [facility] Nucleated RBC/100 WBC (Bld) [Ratio] 0 % 0-5 [facility] MCHC Auto (RBC) [Mass/Vol]Or dered By: Gabbie Paris on 01-23-2023 MCHC (RBC) [Mass/Vol] 32.3 g/dL 32-36 [facility] Magnesiumon 01-23-2023 Magnesium [Mass/Vol] 2.6 mg/dL Normal 1.6-2.6 [facility] Comment on above: Performed By: #### L 500.4050, L501.5200 #### [facility] [address] [place], [address] No Panel InformationOrdered By: Sophie Craft on 01-23-2023 Estimated GFR (MDRD) Amer 76 mL/min >60 [facility] Comment on above: GFR Calc Estimated GFR (MDRD) Non-Af Amer 63 mL/min >60 [facility] Comment on above: Non- GFR Calc Platelets bldOrdered By: Hamilton Paris on 01-23-2023 Platelets (Bld) [#/Vol] 295 10*3/uL 150-450 [facility] Serum or plasma albumin shandra urement (mass/volume)Ordered By: Sophie Craft on 01-23-2023 Albumin [Mass/Vol] 3.2 g/dL 3.2-5.0 [facility] Serum or plasma albumin/glob ulin mass ratioOrdered By: Sophie Craft on 01-23-2023 Albumin/Globulin [Mass ratio] 1.0 {ratio} 0.9-2.4 [facility] Serum or plasma calcium shandra urement (mass/volume)Ordered By: Sophie Craft on 01-23-2023 Calcium [Mass/Vol] 8.2 mg/dL 8.5-10.1 [facility] Serum or plasma creatinine m easurement (mass/volume)Ordered By: Sophie Craft on 01-23-2023 Creatinine [Mass/Vol] 1.23 mg/dL 0.70-1.30 [facility] Comment on above: The validity of the calculated GFR & GFRAA in patients over 70 years has not been determined. Clinical correlation is essential. Serum or plasma urea nitroge n measurement (mass/volume)Ordered By: Sophie Craft on 01-23-2023 Urea nitrogen [Mass/Vol] 22 mg/dL - [facility] Thin prep Papanicolaou smear with manual screeningOrdered By: Sophie Craft on 01-23-2023 Thin prep Papanicolaou smear with manual screening 30 U/L 15- [facility] Thin prep Papanicolaou smear with manual screening 3 5- [facility] Chest PA and Lateralon 01-21 Chest PA and Lateral [facility] Imaging Services [address] [place] [address] Chest PA and Lateral MR#: [id number] Acct: [id number] Name: LORRI COUGHLIN Rep #: [id number] : 1960 M 63 From: Toby Andrea MD PCP: Dr. Sophie Craft MD Status: [facility] CLI Study: Chest PA and Lateral Date of Exam: 01/21/23 Exam# [id number] Ordering Dr: Sophie Craft MD [id number] STUDY: X-RAY CHEST REASON FOR EXAM: Male, 63 years old. Follow-up of pneumonia. TECHNIQUE: Frontal and lateral views of the chest. COMPARISON: January 07, 2023. FINDINGS: Hyperinflation with decreased opacities in both lower lobes posteriorly. Follow-up chest imaging to complete resolution recommended. There is no demonstrated pleural abnormality. Stable cardiomegaly with aortic tortuosity. Normal mediastinum and jenifer. Normal visualized pulmonary arteries. Normal visualized thoracic spine. Normal visualized ribs, clavicles, and shoulders. No abnormality of the visualized soft tissue structures of the upper abdomen. RAD/Chest PA and Lateral IMPRESSION: Cardiomegaly, hyperinflation and decreased patchy opacities at both bases posteriorly. Continued follow-up chest imaging to complete resolution recommended. Electronically Signed: Toby Andrea MD at 12:18 EDT Reading Location ID and State: [facility] / [place] , Service support , CC: Dr. Sophie Craft MD Precision Lens Technician: Signed Normal [facility] MR/BMS.Bon 01-21-2023 MR/BMS.IMB [facility] [address] [place] [address] OFFICE VISIT Date of Service: 01/21/23 MR#: [id number] Acct: [id number] Name: LORRI COUGHLIN Rep #: [id number] : 1960 Provider: Dr. Sophie ashraf MD Age/Sex: 63/M Location: [facility] Status: Signed with Addenda ADDENDUM by Dr. Sophie Craft MD on 01/26/23 at 1552 HPI Details: LORRI COUGHLIN is a 63 M who presents to the office today for Assessment and Plan Assessment and Plan (1) Atrial fibrillation: Status: Acute (2) Fatigue: Status: Acute (3) Abnormal echocardiogram: Status: Acute (4) CHF (congestive heart failure): Status: Acute Qualifiers: Heart failure type: diastolic Heart failure chronicity: acute on chronic Qualified Code(s): I50.33 - Acute on chronic diastolic (congestive) heart failure (5) Elevated troponin: Status: Acute (6) Hypertensive urgency: Status: Acute (7) Hyperlipidemia: Status: Chronic Qualifiers: Hyperlipidemia type: unspecified Qualified Code(s): E78.5 - Hyperlipidemia, unspecified (8) History of ST elevation myocardial infarction (STEMI): Status: Resolved Orders: Orders Chest PA and Lateral 01/21/23 E78.5 - Hyperlipidemia, unspecified, F17.200 - Nicotine dependence, unspecified, uncomplicated, I16.0 - Hypertensive urgency, I25.10 - Atherosclerotic heart disease of [place] coronary artery without angina pectoris, I25.2 - Old myocardial infarction, I50.9 - Heart failure, unspecified Comprehensive Metabolic Profil 01/23/23 F17.200 - Nicotine dependence, unspecified, uncomplicated, I16.0 - Hypertensive urgency, I25.2 - Old myocardial infarction, I50.9 - Heart failure, unspecified, I71.40 - Abdominal aortic aneurysm, without rupture, unspecified, Z95.5 - Presence of coronary angioplasty implant and graft Magnesium 01/23/23 F17.200 - Nicotine dependence, unspecified, uncomplicated, I16.0 - Hypertensive urgency, I25.2 - Old myocardial infarction, I50.9 - Heart failure, unspecified, I71.40 - Abdominal aortic aneurysm, without rupture, unspecified, Z95.5 - Presence of coronary angioplasty implant and graft Medications: New furosemide 40 mg PO DAILY 30 tabs 2RF Changed From metoprolol tartrate 12.5 mg (1/2 x 25 mg) PO BID 30 days 30 tabs 0RF To metoprolol tartrate 25 mg PO BID 180 tabs 1RF 01/26/23 1552 Date Sophie Craft MD cc: * Signed Intake Vital Signs 01/08/23 10:43 01/21/23 10:40 Height 5 ft 9 in 5 ft 9 in Weight: 152 lb 8 oz BMI 22.5 BP 152/73 H Blood Pressure Location Lt brachial Position Sitting Respiration 16 Pulse 82 Pulse Source Monitor Temp 98.5 F Temp Source Temporal Pulse Oximetry (%) 94 Oxygen Delivery Method room air Intake Visit Reasons: [facility] Discharge FU Chief Complaint: f/u hospital for [facility] Airline Lounge Receptionist Required: No Is patient in pain?: No Allergies No Known Allergies Allergy (Verified 01/21/23 10:41) Medications aspirin 81 mg tablet,delayed release 81 mg PO DAILY@0800 [facility]ALTH [employer]INTENANCE 10/30/21 [History Confirmed 01/21/23] atorvastatin 80 mg tablet 80 mg PO QHS hyperlipidemia #90 tabs 12/02/21 [Rx Confirmed 01/21/23] apixaban 5 mg tablet (Eliquis) 5 mg PO BID 30 days #60 tabs 01/10/23 [Rx Confirmed 01/21/23] metoprolol tartrate 25 mg tablet 25 mg PO BID #180 tabs 01/21/23 [Rx Confirmed 01/21/23] Nurse's Note: rm 5 PFSH Medical History Atherosclerotic heart disease of [place] coronary artery without angina pectoris History of ST elevation myocardial infarction (STEMI) (03/22/20) Nicotine dependence Non-sustained ventricular tachycardia (03/24/20) Old inferior wall myocardial infarction (03/22/20) Surgical History History of coronary artery stent placement (03/22/20) Family History Father Colon cancer Social History Smoking Status: Current every day smoker tobacco type: cigarettes Tobacco: How many years used: 40 alcohol intake: never substance use type: does not use what type of physical activity do you participate in: none HPI HPI Chief Complaint: f/u hospital for pneum Details: LORRI COUGHLIN, is a 63 M who presents to the office today for ER/hospital follow-up. 63-year-old male who has a history of myocardial infarction in 2019. He underwent heart cath, followed by a stent to the RCA which was occluded acutely. He also has noted to have a 50% ostial first diagonal LAD. Alva to be best managed through medical management. He was started on high-dose statin, aspirin. He had been doing reasonably well until he had an episode several weeks ago where he started with coughing, (more content not included)... Normal [facility] CBC W/Diff, Automatedon 12-26 PATH REV Reviewed Normal [facility] Comment on above: Result Comment: Leuk ocytosis. Macrocytic anemia. Clinical correlation necessary. Vasquez Gupta M.D. 01/12/23 AMENDED REPORT 01/12/23 0940 PATH REV previously reported as: August simona Performed By: #### L 500.2500, L500.4100, L501.4020, L100.0100 #### [facility] [address] [place], [address] PATH REV Reviewed Normal [facility] Comment on above: Result Comment: Neut rophilic leukocytosis. Macrocytic anemia. Clinical correlation necessary. Vasquez Gupta M.D. 01/12/23 AMENDED REPORT 01/12/23 0938 PATH REV previously reported as: August simona Performed By: #### L 501.5200, L501.2300 #### [facility] [address] [place], [address] Absolute lymphocyte countOrd ered By: Roosevelt Kruse on 01-10-2023 Lymphocytes Auto (Unsp spec) [#/Vol] 1.64 10*3/uL 0.83-4.51 [facility] Basic Metabolic Profile (BMP )on 01-10-2023 BUN/CRE 20.3 RATIO High 10-20 [facility] Comment on above: Performed By: #### L 501.5200, L501.2300 #### [facility] [address] [place], [address] CA,Total 9.6 mg/dL Normal 8.5-10.1 [facility] Comment on above: Performed By: #### L 501.5200, L501.2300 #### [facility] [address] [place], [address] Chloride [Moles/Vol] 98 mmol/L Normal 98-107 [facility] Comment on above: Performed By: #### L 501.5200, L501.2300 #### [facility] [address] [place], [address] CO2 [Moles/Vol] 27.0 mmol/L Normal 21.0-32.0 [facility] Comment on above: Performed By: #### L 501.5200, L501.2300 #### [facility] [address] [place], [address] Creatinine [Mass/Vol] 1.28 mg/dL Normal 0.70-1.30 [facility] Comment on above: Result Comment: The validity of the calculated GFR GFRAA in patients over 70 years has not been determined. Clinical correlation is essential. Performed By: #### L 501.5200, L501.2300 #### [facility] [address] [place], [address] ECRCL 51.22 ml/min Normal [facility] Comment on above: Performed By: #### L 501.5200, L501.2300 #### [facility] [address] [place], [address] EST GFR - AA 73 mL/min Normal >60 [facility] Comment on above: Result Comment: Afri can [place] GFR Calc Performed By: #### L 501.5200, L501.2300 #### [facility] [address] [place], [address] GAP 9 Normal 5-15 [facility] Comment on above: Performed By: #### L 501.5200, L501.2300 #### [facility] [address] [place], [address] GFR/1.73 sq M.predicted among non-blacks MDRD (S/P/Bld) [Vol rate/Area] 60 mL/min/{1.73_m2} Normal >60 [facility] Comment on above: Result Comment: Non- GFR Calc Performed By: #### L 501.5200, L501.2300 #### [facility] [address] [place], [address] Glucose [Mass/Vol] 97 mg/dL Normal 74-106 [facility] Comment on above: Performed By: #### L 501.5200, L501.2300 #### [facility] [address] [place], [address] Potassium [Moles/Vol] 3.2 mmol/L Low 3.5-5.1 [facility] Comment on above: Performed By: #### L 501.5200, L501.2300 #### [facility] [address] [place], [address] Sodium [Moles/Vol] 134 mmol/L Low 136-145 [facility] Comment on above: Performed By: #### L 501.5200, L501.2300 #### [facility] [address] [place], [address] Urea nitrogen [Mass/Vol] 26 mg/dL High 7-18 [facility] Comment on above: Performed By: #### L 501.5200, L501.2300 #### [facility] [address] [place], [address] Basophil percentageOrdered B y: Roosevelt Branardshannon on 01-10-2023 Basophils/100 WBC (Bld) 0.2 % 0-1 [facility] Chloride [Moles/Vol] 98 mmol/L 98-107 [facility] Eosinophils/100 WBC (Bld) 0.3 % 0-5 [facility] Glucose [Mass/Vol] 97 mg/dL 74-106 [facility] Neutrophils (Bld) [#/Vol] 8.4 10*3/uL 2.0-7.7 [facility] Neutrophils/100 WBC (Bld) 75.3 % 47-70 [facility] Potassium [Moles/Vol] 3.2 mmol/L 3.5-5.1 [facility] Sodium [Moles/Vol] 134 mmol/L 136-145 [facility] WBC (Bld) [#/Vol] 11.2 10*3/uL 4.4-11.0 [facility] Bedside Glucoseon 01-10-2023 FINGERSTICK GLU 148 mg/dL High 74-106 [facility] Comment on above: Result Comment: GEREMIAS PIZANO OF PATIENT CARE PER NURSING PROTOCOL Performed By: #### L 501.5200, L501.2300 #### [facility] [address] [place], [address] Blood erythrocytes count (nu mber/volume)Ordered By: Roosevelt Kruse on 01-10-2023 RBC (Bld) [#/Vol] 4.18 10*6/uL 4.6-6.2 [facility] Blood hemoglobin measurement (mass/volume)Ordered By: Roosevelt Kruse on 01-10-2023 Hemoglobin (Bld) [Mass/Vol] 13.8 g/dL 13.0-16.5 [facility] Blood lymphocytes/100 leukoc ytesOrdered By: Roosevelt Kruse on 01-10-2023 Lymphocytes/100 WBC (Bld) 14.6 % 19-41 [facility] Blood monocytes/100 leukocyt esOrdered By: Roosevelt Kruse on 01-10-2023 Monocytes/100 WBC (Bld) 9.2 % 0-10 [facility] Blood platelet mean volumeOr dered By: Roosevelt Kruse on 01-10-2023 Platelet mean volume (Bld) [Entitic vol] 9.8 fL 6.2-12.0 [facility] CBC W/Diff, Automatedon 09- Absolute Lymph 1.64 X10 3/uL Normal 0.83-4.51 [facility] Comment on above: Performed By: #### L 100.0100, L500.2500 #### [facility] [address] [place], [address] Absolute Neut 8.4 X10 3/uL High 2.0-7.7 [facility] Comment on above: Performed By: #### L 100.0100, L500.2500 #### [facility] [address] [place], [address] Basophils/100 WBC (Bld) 0.2 % Normal 0-1 [facility] Comment on above: Performed By: #### L 100.0100, L500.2500 #### [facility] [address] [place], [address] Eosinophils/100 WBC (Bld) 0.3 % Normal 0-5 [facility] Comment on above: Performed By: #### L 100.0100, L500.2500 #### [facility] [address] [place], [address] Erythrocyte distribution width (RBC) [Ratio] 12.9 % Normal 11.6-14.6 [facility] Comment on above: Performed By: #### L 100.0100, L500.2500 #### [facility] [address] [place], [address] Hematocrit (Bld) [Volume fraction] 38.6 % Low 40-54 [facility] Comment on above: Performed By: #### L 100.0100, L500.2500 #### [facility] [address] [place], [address] Hemoglobin (Bld) [Mass/Vol] 13.8 g/dL Normal 13.0-16.5 [facility] Comment on above: Performed By: #### L 100.0100, L500.2500 #### [facility] [address] [place], [address] IG% 0.400 Normal 0.0-0.9 [facility] Comment on above: Result Comment: IG% - Immature Granulocytes (promyelocytes, myelocytes and metamyelocytes) > 1% indicates that a LEFT SHIFT is Present. Performed By: #### L 100.0100, L500.2500 #### [facility] [address] [place], [address] Lymphocytes/100 WBC (Bld) 14.6 % Low 19-41 [facility] Comment on above: Performed By: #### L 100.0100, L500.2500 #### [facility] [address] [place], [address] MCH (RBC) [Entitic mass] 33.0 pg High 27.0-32.0 [facility] Comment on above: Performed By: #### L 100.0100, L500.2500 #### [facility] [address] [place], [address] MCHC (RBC) [Mass/Vol] 35.8 g/dL Normal 32-36 [facility] Comment on above: Performed By: #### L 100.0100, L500.2500 #### [facility] [address] [place], [address] MCV (RBC) [Entitic vol] 92.3 fL Normal 80-94 [facility] Comment on above: Performed By: #### L 100.0100, L500.2500 #### [facility] [address] [place], [address] Monocytes/100 WBC (Bld) 9.2 % Normal 0-10 [facility] Comment on above: Performed By: #### L 100.0100, L500.2500 #### [facility] [address] [place], [address] Neutrophils/100 WBC (Bld) 75.3 % High 47-70 [facility] Comment on above: Performed By: #### L 100.0100, L500.2500 #### [facility] [address] [place], [address] Nucleated RBC (Bld) [#/Vol] 0 10*3/uL Normal 0-5 [facility] Comment on above: Performed By: #### L 100.0100, L500.2500 #### [facility] [address] [place], [address] Platelet mean volume (Bld) [Entitic vol] 9.8 fL Normal 6.2-12.0 [facility] Comment on above: Performed By: #### L 100.0100, L500.2500 #### [facility] [address] [place], [address] Platelets (Bld) [#/Vol] 285 10*3/uL Normal 150-450 [facility] Comment on above: Performed By: #### L 100.0100, L500.2500 #### [facility] [address] [place], [address] RBC (Bld) [#/Vol] 4.18 10*6/uL Low 4.6-6.2 [facility] Comment on above: Performed By: #### L 100.0100, L500.2500 #### [facility] [address] [place], [address] RDW SD 43.5 fl Normal 35.1-43.9 [facility] Comment on above: Performed By: #### L 100.0100, L500.2500 #### [facility] [address] [place], [address] WBC (Bld) [#/Vol] 11.2 10*3/uL High 4.4-11.0 [facility] Comment on above: Performed By: #### L 100.0100, L500.2500 #### [facility] [address] [place], [address] Determination of erythrocyte mean corpuscular volume (MCV)Ordered By: Roosevelt Kruse on 01-10-2023 MCV (RBC) [Entitic vol] 92.3 fL 80-94 [facility] Discharge Instructionon 12-26 Discharge Instruction [facility] Medical Records Department [address] [place] [address] Instructions for Home/Discharge Instructions 01/10/23 1243 MR#: [id number] Acct: [id number] Name: LORRI COUGHLIN Rep #: [id number] : 1960 62 From: Roosevelt Kruse MD PCP: Dr. Sophie Craft MD Status:ADM IN Discharge Instructions Diet Discharge Diet: Low fat / Low cholesterol Activity Discharge Activity: Return to Normal Activity Dressing / Incision Call your doctor if you observe: Fever of 101 or Higher, Shortness of breath, Dizziness, Fainting spells, Swelling in the ankles, Chest pain and Increased palpitations (irregular heartbeat) Follow Up Care Test Results: Test results from this visit will be discussed in further detail at your follow-up appointment, if applicable. Discharge Plan Admission Admit Date/Time: 01/07/23 21:58 Attending Provider: Roosevelt Kruse Primary Care Provider: Sophie Craft Consulting Providers: Cesar Henriquez Discharge Orders/Prescriptions Prescriptions: New Eliquis 5 mg Tablet 5 mg PO BID 30 Days Qty: 60 0RF metoprolol tartrate 25 mg Tablet 12.5 mg PO BID 30 Days Qty: 30 0RF levofloxacin 750 mg tablet 750 mg PO DAILY Qty: 4 0RF Continued aspirin 81 mg Tablet,Delayed Release (Dr/Ec) 81 mg PO DAILY@0800 atorvastatin 80 mg tablet 80 mg PO QHS Qty: 90 3RF Referrals / Follow Up: Sophie Craft MD [Primary Care Provider] - Within 1 Week Disposition Disposition (needs filled in before D/C Order can be placed): Home, Self Care 01/10/23 1247 Roosevelt Kruse MD CC: Dr. Cesar Henriquez MD; Dr. Sophie Craft MD Signed Normal [facility] Hematocrit Auto (Bld) [Volum e fraction]Ordered By: Roosevelt Kruse on 01-10-2023 Hematocrit (Bld) [Volume fraction] 38.6 % 40-54 [facility] - Chemistry and C hemistry - challengeOrdered By: Roosevelt Kruse on 01-10-2023 CO2 [Moles/Vol] 27.0 mmol/L 21.0-32.0 [facility] Urea nitrogen/Creatinine [Mass ratio] 20.3 mg/mg 10-20 [facility] - Hematology and Cell countsOrdered By: Roosevelt Kruse on 01-10-2023 Erythrocyte distribution width (RBC) [Entitic vol] 43.5 fL 35.1-43.9 [facility] Erythrocyte distribution width (RBC) [Ratio] 12.9 % 11.6-14.6 [facility] Immature granulocytes/100 WBC (Bld) 0.400 % 0.0-0.9 [facility] Comment on above: IG% - Immature Granu locytes (promyelocytes, myelocytes and metamyelocytes) > 1% indicates that a LEFT SHIFT is Present. MCH (RBC) [Entitic mass] 33.0 pg 27.0-32.0 [facility] Nucleated RBC/100 WBC (Bld) [Ratio] 0 % 0-5 [facility] MCHC Auto (RBC) [Mass/Vol]Or dered By: Roosevelt Kruse on 01-10-2023 MCHC (RBC) [Mass/Vol] 35.8 g/dL 32-36 [facility] No Panel InformationOrdered By: Roosevelt Kruse on 01-10-2023 Estimated Creatinine Clearance Calc 51.22 ml/min [facility] Estimated GFR (MDRD) Amer 73 mL/min >60 [facility] Comment on above: GFR Calc Estimated GFR (MDRD) Non-Af Amer 60 mL/min >60 [facility] Comment on above: Non- GFR Calc Platelets bldOrdered By: Jose Kruse on 01-10-2023 Platelets (Bld) [#/Vol] 285 10*3/uL 150-450 [facility] Serum or plasma calcium shandra urement (mass/volume)Ordered By: Roosevelt Kruse on 01-10-2023 Calcium [Mass/Vol] 9.6 mg/dL 8.5-10.1 [facility] Serum or plasma creatinine m easurement (mass/volume)Ordered By: Roosevelt Kruse on 01-10-2023 Creatinine [Mass/Vol] 1.28 mg/dL 0.70-1.30 [facility] Comment on above: The validity of the calculated GFR & GFRAA in patients over 70 years has not been determined. Clinical correlation is essential. Serum or plasma urea nitroge n measurement (mass/volume)Ordered By: Roosevelt Kruse on 01-10-2023 Urea nitrogen [Mass/Vol] 26 mg/dL 7-18 [facility] Thin prep Papanicolaou smear with manual screeningOrdered By: Roosevelt Kruse on 01-10-2023 Thin prep Papanicolaou smear with manual screening 09-08 [facility] 12 Lead EKGon 01-09-2023 12 Lead EKG [facility] Cardiovascular Services [address] [place] [address] 12 Lead EKG 01/09/23 0802 MR#: [id number] Acct: [id number] Name: LORRI COUGHLIN Rep #: [id number] : 1960 62 From: Eulalio Gutierrez MD Attending Dr: Dr. Roosevelt Kruse MD Status : DIS IN Ordering Dr: Roosevelt Kruse MD Date: 01/09/23 Location: [facility] Sex: M C Admitted: 01/07/23 Test Reason : AFIB Blood Pressure : / mmHG Vent. Rate : 093 BPM Atrial Rate : 000 BPM P-R Int : 000 ms QRS Dur : 092 ms QT Int : 382 ms P-R-T Axes : 000 063 082 degrees QTc Int : 474 ms Atrial fibrillation Moderate voltage criteria for LVH, may be normal variant ( Sokolow-Carlson , [place] product ) Cannot rule out Inferior infarct , age undetermined Abnormal ECG When compared with ECG of 08-JAN-2023 20:26, MANUAL COMPARISON REQUIRED, DATA IS UNCONFIRMED Confirmed by MATT OSBORNE, EULALIO ([id number]), editor house organ TIFF LUNA ([id number]) on 02/11/2023 1:29:35 PM Referred By: Confirmed By:EULALIO GUTIERREZ MD 02/11/23 1329 Date Eulalio Gutierrez MD CC: Dr. Sophie Craft MD; Dr. Roosevelt Kruse MD Signed Normal [facility] Basic Metabolic Profile (BMP )on 01-09-2023 BUN/CRE 14.6 RATIO Normal 02-13 [facility] Comment on above: Performed By: #### L 500.2500, L500.4100, L501.4020, L100.0100 #### [facility] [address] [place], [address] CA,Total 8.9 mg/dL Normal 8.5-10.1 [facility] Comment on above: Performed By: #### L 500.2500, L500.4100, L501.4020, L100.0100 #### [facility] [address] [place], [address] Chloride [Moles/Vol] 100 mmol/L Normal 98-107 [facility] Comment on above: Performed By: #### L 500.2500, L500.4100, L501.4020, L100.0100 #### [facility] [address] [place], [address] CO2 [Moles/Vol] 29.0 mmol/L Normal 21.0-32.0 [facility] Comment on above: Performed By: #### L 500.2500, L500.4100, L501.4020, L100.0100 #### [facility] [address] [place], [address] Creatinine [Mass/Vol] 1.23 mg/dL Normal 0.70-1.30 [facility] Comment on above: Result Comment: The validity of the calculated GFR GFRAA in patients over 70 years has not been determined. Clinical correlation is essential. Performed By: #### L 500.2500, L500.4100, L501.4020, L100.0100 #### [facility] [address] [place], [address] ECRCL 56.08 ml/min Normal [facility] Comment on above: Performed By: #### L 500.2500, L500.4100, L501.4020, L100.0100 #### [facility] [address] [place], [address] EST GFR - AA 76 mL/min Normal >60 [facility] Comment on above: Result Comment: Afri can Beninese GFR Calc Performed By: #### L 500.2500, L500.4100, L501.4020, L100.0100 #### [facility] [address] [place], [address] GAP 5 Normal 5-15 [facility] Comment on above: Performed By: #### L 500.2500, L500.4100, L501.4020, L100.0100 #### [facility] [address] [place], [address] GFR/1.73 sq M.predicted among non-blacks MDRD (S/P/Bld) [Vol rate/Area] 63 mL/min/{1.73_m2} Normal >60 [facility] Comment on above: Result Comment: Non- GFR Calc Performed By: #### L 500.2500, L500.4100, L501.4020, L100.0100 #### [facility] [address] [place], [address] Glucose [Mass/Vol] 105 mg/dL Normal 74-106 [facility] Comment on above: Result Comment: Fast ing Glucose result from 100 to 125 mg/dL suggests IMPAIRED HOMEOSTASIS per A.D.A. criteria. Performed By: #### L 500.2500, L500.4100, L501.4020, L100.0100 #### [facility] [address] [place], [address] Potassium [Moles/Vol] 2.9 mmol/L Low 3.5-5.1 [facility] Comment on above: Performed By: #### L 500.2500, L500.4100, L501.4020, L100.0100 #### [facility] [address] [place], [address] Sodium [Moles/Vol] 134 mmol/L Low 136-145 [facility] Comment on above: Performed By: #### L 500.2500, L500.4100, L501.4020, L100.0100 #### [facility] [address] [place], [address] Urea nitrogen [Mass/Vol] 18 mg/dL Normal 7-18 [facility] Comment on above: Performed By: #### L 500.2500, L500.4100, L501.4020, L100.0100 #### [facility] [address] [place], [address] CBC W/Diff, Automatedon 12-26-2022 Absolute Lymph 1.63 X10 3/uL Normal 0.83-4.51 [facility] Comment on above: Performed By: #### L 500.2500, L500.4100, L501.4020, L100.0100 #### [facility] [address] [place], [address] Absolute Neut 7.8 X10 3/uL High 2.0-7.7 [facility] Comment on above: Performed By: #### L 500.2500, L500.4100, L501.4020, L100.0100 #### [facility] [address] [place], [address] Basophils/100 WBC (Bld) 0.2 % Normal 0-1 [facility] Comment on above: Performed By: #### L 500.2500, L500.4100, L501.4020, L100.0100 #### [facility] [address] [place], [address] Eosinophils/100 WBC (Bld) 0.3 % Normal 0-5 [facility] Comment on above: Performed By: #### L 500.2500, L500.4100, L501.4020, L100.0100 #### [facility] [address] [place], [address] Erythrocyte distribution width (RBC) [Ratio] 13.2 % Normal 11.6-14.6 [facility] Comment on above: Performed By: #### L 500.2500, L500.4100, L501.4020, L100.0100 #### [facility] [address] [place], [address] Hematocrit (Bld) [Volume fraction] 36.8 % Low 40-54 [facility] Comment on above: Performed By: #### L 500.2500, L500.4100, L501.4020, L100.0100 #### [facility] [address] [place], [address] Hemoglobin (Bld) [Mass/Vol] 12.8 g/dL Low 13.0-16.5 [facility] Comment on above: Performed By: #### L 500.2500, L500.4100, L501.4020, L100.0100 #### [facility] [address] [place], [address] IG% 0.500 Normal 0.0-0.9 [facility] Comment on above: Result Comment: IG% - Immature Granulocytes (promyelocytes, myelocytes and metamyelocytes) > 1% indicates that a LEFT SHIFT is Present. Performed By: #### L 500.2500, L500.4100, L501.4020, L100.0100 #### [facility] [address] [place], [address] Lymphocytes/100 WBC (Bld) 15.3 % Low 19-41 [facility] Comment on above: Performed By: #### L 500.2500, L500.4100, L501.4020, L100.0100 #### [facility] [address] [place], [address] MCH (RBC) [Entitic mass] 33.1 pg High 27.0-32.0 [facility] Comment on above: Performed By: #### L 500.2500, L500.4100, L501.4020, L100.0100 #### [facility] [address] [place], [address] MCHC (RBC) [Mass/Vol] 34.8 g/dL Normal 32-36 [facility] Comment on above: Performed By: #### L 500.2500, L500.4100, L501.4020, L100.0100 #### [facility] [address] [place], [address] MCV (RBC) [Entitic vol] 95.1 fL High 80-94 [facility] Comment on above: Performed By: #### L 500.2500, L500.4100, L501.4020, L100.0100 #### [facility] [address] [place], [address] Monocytes/100 WBC (Bld) 11.1 % High 0-10 [facility] Comment on above: Performed By: #### L 500.2500, L500.4100, L501.4020, L100.0100 #### [facility] [address] [place], [address] Neutrophils/100 WBC (Bld) 72.6 % High 47-70 [facility] Comment on above: Performed By: #### L 500.2500, L500.4100, L501.4020, L100.0100 #### [facility] [address] [place], [address] Nucleated RBC (Bld) [#/Vol] 0 10*3/uL Normal 0-5 [facility] Comment on above: Performed By: #### L 500.2500, L500.4100, L501.4020, L100.0100 #### [facility] [address] [place], [address] Platelet mean volume (Bld) [Entitic vol] 10.0 fL Normal 6.2-12.0 [facility] Comment on above: Performed By: #### L 500.2500, L500.4100, L501.4020, L100.0100 #### [facility] [address] [place], [address] Platelets (Bld) [#/Vol] 258 10*3/uL Normal 150-450 [facility] Comment on above: Performed By: #### L 500.2500, L500.4100, L501.4020, L100.0100 #### [facility] [address] [place], [address] RBC (Bld) [#/Vol] 3.87 10*6/uL Low 4.6-6.2 [facility] Comment on above: Performed By: #### L 500.2500, L500.4100, L501.4020, L100.0100 #### [facility] [address] [place], [address] RDW SD 45.3 fl High 35.1-43.9 [facility] Comment on above: Performed By: #### L 500.2500, L500.4100, L501.4020, L100.0100 #### [facility] [address] [place], [address] WBC (Bld) [#/Vol] 10.7 10*3/uL Normal 4.4-11.0 [facility] Comment on above: Performed By: #### L 500.2500, L500.4100, L501.4020, L100.0100 #### [facility] [address] [place], [address] Glucose Glucometer (BldC) [M ass/Vol]Ordered By: Roosevelt Kruse on 01-09-2023 Glucose [Mass/Vol] 148 mg/dL 74-106 [facility] Comment on above: MANAGEMENT OF PATIEN T CARE PER NURSING PROTOCOL No Panel InformationOrdered By: Roosevelt Kruse on 01-09-2023 Thyroid Stimulating Hormone (TSH) 1.57 uIU/mL 0.358-3.74 [facility] Thyroid Stim Hormone (TSH)on 01-09-2023 TSH 1.57 uIU/mL Normal 0.358-3.74 [facility] Comment on above: Performed By: #### L 501.5200, L501.2300 #### [facility] [address] [place], [address] 12 Lead EKGon 01-08-2023 12 Lead EKG [facility] Cardiovascular Services [address] [place] [address] 12 Lead EKG 01/08/232025 MR#: [id number] Acct: [id number] Name: LORRI COUGHLIN Rep #: [id number] : 1960 62 From: Eulalio Gutierrez MD Attending Dr: Dr. Roosevelt Kruse MD Status : DIS IN Ordering Dr: Cesar Henriquez MD Date: 01/08/23 Location: [facility] Sex: M C Admitted: 01/07/23 Test Reason : RHYTHM CHG Blood Pressure : / mmHG Vent. Rate : 110 BPM Atrial Rate : 000 BPM P-R Int : 000 ms QRS Dur : 092 ms QT Int : 370 ms P-R-T Axes : 000 050 085 degrees QTc Int : 500 ms Atrial fibrillation with rapid ventricular response Moderate voltage criteria for LVH, may be normal variant ( Sokolow-Carlson , [place] product ) Nonspecific T wave abnormality Abnormal ECG When compared with ECG of 07-JAN-2023 20:07, Atrial fibrillation has replaced Sinus rhythm Confirmed by EULALIO GUTIERREZ MD ([id number]), editor house organ TIFF LUNA ([id number]) on 02/04/2023 1:48:33 PM Referred By: DR CALLAWAY Confirmed By:EULALIO GUTIERREZ MD 02/04/23 1348 Date Eulalio Gutierrez MD CC: Dr. Cesar Henriquez MD; Dr. Sophie Craft MD; Dr. Roosevelt Kruse MD Signed Normal [facility] Basic Metabolic Profile (BMP )on 01-08-2023 BUN/CRE 15.9 RATIO Normal 10-20 [facility] Comment on above: Order Comment: Comme nts: SPECIMEN #3 'TROP' Serial specimen #1, #2 or #3: 3 Performed By: #### L 500.2500, L500.4100, L501.4020, L100.0100 #### [facility] [address] [place], [address] CA,Total 8.4 mg/dL Low 8.5-10.1 [facility] Comment on above: Order Comment: Comme nts: SPECIMEN #3 'TROP' Serial specimen #1, #2 or #3: 3 Performed By: #### L 500.2500, L500.4100, L501.4020, L100.0100 #### [facility] [address] [place], [address] Chloride [Moles/Vol] 100 mmol/L Normal 98-107 [facility] Comment on above: Order Comment: Comme nts: SPECIMEN #3 'TROP' Serial specimen #1, #2 or #3: 3 Performed By: #### L 500.2500, L500.4100, L501.4020, L100.0100 #### [facility] [address] [place], [address] CO2 [Moles/Vol] 29.0 mmol/L Normal 21.0-32.0 [facility] Comment on above: Order Comment: Comme nts: SPECIMEN #3 'TROP' Serial specimen #1, #2 or #3: 3 Performed By: #### L 500.2500, L500.4100, L501.4020, L100.0100 #### [facility] [address] [place], [address] Creatinine [Mass/Vol] 1.26 mg/dL Normal 0.70-1.30 [facility] Comment on above: Order Comment: Comme nts: SPECIMEN #3 'TROP' Serial specimen #1, #2 or #3: 3 Result Comment: The validity of the calculated GFR GFRAA in patients over 70 years has not been determined. Clinical correlation is essential. Performed By: #### L 500.2500, L500.4100, L501.4020, L100.0100 #### [facility] [address] [place], [address] ECRCL 59.31 ml/min Normal [facility] Comment on above: Order Comment: Comme nts: SPECIMEN #3 'TROP' Serial specimen #1, #2 or #3: 3 Performed By: #### L 500.2500, L500.4100, L501.4020, L100.0100 #### [facility] [address] [place], [address] EST GFR - AA 74 mL/min Normal >60 [facility] Comment on above: Order Comment: Comme nts: SPECIMEN #3 'TROP' Serial specimen #1, #2 or #3: 3 Result Comment: Afri can [place] GFR Calc Performed By: #### L 500.2500, L500.4100, L501.4020, L100.0100 #### [facility] [address] [place], [address] GAP 6 Normal 5-15 [facility] Comment on above: Order Comment: Comme nts: SPECIMEN #3 'TROP' Serial specimen #1, #2 or #3: 3 Performed By: #### L 500.2500, L500.4100, L501.4020, L100.0100 #### [facility] [address] [place], [address] GFR/1.73 sq M.predicted among non-blacks MDRD (S/P/Bld) [Vol rate/Area] 61 mL/min/{1.73_m2} Normal >60 [facility] Comment on above: Order Comment: Comme nts: SPECIMEN #3 'TROP' Serial specimen #1, #2 or #3: 3 Result Comment: Non- GFR Calc Performed By: #### L 500.2500, L500.4100, L501.4020, L100.0100 #### [facility] [address] [place], [address] Glucose [Mass/Vol] 92 mg/dL Normal 74-106 [facility] Comment on above: Order Comment: Comme nts: SPECIMEN #3 'TROP' Serial specimen #1, #2 or #3: 3 Performed By: #### L 500.2500, L500.4100, L501.4020, L100.0100 #### [facility] [address] [place], [address] Potassium [Moles/Vol] 2.8 mmol/L Low 3.5-5.1 [facility] Comment on above: Order Comment: Comme nts: SPECIMEN #3 'TROP' Serial specimen #1, #2 or #3: 3 Performed By: #### L 500.2500, L500.4100, L501.4020, L100.0100 #### [facility] [address] [place], [address] Sodium [Moles/Vol] 135 mmol/L Low 136-145 [facility] Comment on above: Order Comment: Comme nts: SPECIMEN #3 'TROP' Serial specimen #1, #2 or #3: 3 Performed By: #### L 500.2500, L500.4100, L501.4020, L100.0100 #### [facility] [address] [place], [address] Urea nitrogen [Mass/Vol] 20 mg/dL High 7-18 [facility] Comment on above: Order Comment: Comme nts: SPECIMEN #3 'TROP' Serial specimen #1, #2 or #3: 3 Performed By: #### L 500.2500, L500.4100, L501.4020, L100.0100 #### [facility] [address] [place], [address] Basophil percentageOrdered B y: Roosevelt Kruse on 01-08-2023 Basophil percentage 4.3 mg/dL 2.5-4.9 [facility] Basophil percentageOrdered B y: Cesar Henriquez on 01-08-2023 Cholesterol [Mass/Vol] 110 mg/dL <200 [facility] Comment on above: <200 mg/dL Desirable 200-240 mg/dL Borderline >240 mg/dL High Risk Triglyceride [Mass/Vol] 80 mg/dL <199 [facility] Comment on above: The drugs N-Acetylcy steine and Metamizole may falsely depress this assay.Serum Triglycerides Reference Interval Normal <150 mg/dL Borderline high 150 - 199 mg/dL High 200 - 499 mg/dL Very High > or = 500 mg/dL Blood manual differential co mment interpretation (narrative result)Ordered By: Cesar Henriquez on 01-08-2023 Manual differential comment Carlos Manuel (Bld) [Interp] SCANNED [facility] Echo Completeon 01-08-2023 Echo Complete [facility] Cardiovascular Services [address] [place] [address] Echo Complete 01/08/23918 MR#: [id number] Acct: [id number] Name: LORRI COUGHLIN Rep #: [id number] : 1960 62 From: Eulalio Gutierrez MD Attending Dr: Dr. Roosevelt Kruse MD Status : ADM IN Ordering Dr: Cesar Henriquez MD Date: 01/08/23 Location: U Sex: M C Admitted: 01/07/23 Reason For Study: DYSPNEA Procedure This was a 2D Doppler, Color Flow transthoracic echocardiogram. Exam performed portable in patient room. Left Ventricle Normal LV size. Mild concentric left ventricular hypertrophy. Left ventricular systolic function is lower limits of normal. The estimated ejection fraction is 50 %. Infero-Basal: Akinetic. Mid- Inferior: Hypokinetic. There are regional wall motion abnormalities as specified. Right Ventricle Normal RV size. Normal systolic function. Atria The left atrium is mildly enlarged. Normal right atrium. Mitral Valve Normal mitral valve. Tricuspid Valve Normal tricuspid valve. Mild tricuspid valve insufficiency. Aortic Valve Trisinus/trileaflet aortic valve. Pulmonic Valve Normal pulmonic valve. Great Vessels Normal aortic root. The pulmonary artery is normal size. Normal inferior vena cava. Pericardium/Pleural No pericardial effusion. MMode/2D Measurements Calculations LVIDd: 5.2 cm IVSd: 1.3 cm LAV(MOD-bp): 85.0 ml LVIDs: 4.5 cm LVPWd: 1.3 cm LAV(MOD-bp) Indexed: 46.0 ml/m2 FS: 14.4 % LAV(MOD-sp2): 113.4 ml LAV(MOD-sp4): 64.4 ml _ SV(MOD-sp4): 44.9 ml LVAd ap4: 35.7 cm2 LVAd ap2: 36.3 cm2 LVLd ap4: 8.7 cm LVLd ap2: 8.6 cm EDV(MOD-sp4): 118.3 ml EDV(MOD-sp2): 131.2 ml EDV(sp4-el): 123.5 ml EDV(sp2-el): 129.4 ml LVAs ap4: 25.4 cm2 LVAs ap2: 28.2 cm2 LVLs ap4: 7.4 cm LVLs ap2: 8.2 cm ESV(MOD-sp4): 73.5 ml ESV(MOD-sp2): 85.4 ml ESV(sp4-el): 74.6 ml ESV(sp2-el): 82.5 ml EF(MOD-sp4): 37.9 % EF(MOD-sp2): 34.9 % EF(sp4-el): 39.6 % _ SV(MOD-sp2): 45.8 ml SV(sp4-el): 48.9 ml LA A4 area: 21.9 cm2 _ LA dimension(2D): 4.9 cm TAPSE: 1.8 cm RA A4 area: 17.4 cm2 Doppler Measurements Calculations MV E max jeanine: 87.0 cm/sec Lat Peak E' Jeanine: 7.0 cm/sec Med Peak E' Jeanine: 6.6 cm/sec E/E' lat: 12.4 E/E' med: 13.3 _ MV V2 max: 101.9 cm/sec Ao V2 max: 132.2 cm/sec LV V1 max: 112.1 cm/sec MV max P.2 mmHg Ao max P.0 mmHg LV V1 max P.1 mmHg MV V2 mean: 67.9 cm/sec Ao V2 mean: 97.9 cm/sec LV V1 mean P.9 mmHg MV mean P.0 mmHg Ao mean P.3 mmHg LV V1 mean: 79.8 cm/sec MV V2 VTI: 27.0 cm Ao V2 VTI: 25.1 cm LV V1 VTI: 19.9 cm AV (velocity ratio): 0.79 ECHO/Echo Complete Interpretation Summary Normal LV size. Left ventricular systolic function is lower limits of normal. The estimated ejection fraction is 50 %. Mild concentric left ventricular hypertrophy. There are regional wall motion abnormalities as specified. Ordering Physician: Cesar Henriquez Referring Physician: Sophie Craft M.D. Performed By: Raven Mcintyre RCS 01/08/231412 Date Eulalio Gutierrez MD CC: Dr. Cesar Henriquez MD; Dr. Sophie Craft MD; Dr. Roosevelt Kruse MD Date Dictated: 01/08/23918 Date Transcribed: 01/08/231412 Precision Lens Technician: Signed Normal [facility] L501.4020on 01-08-2023 TROPONIN-I HS 143 pg/mL Invalid Interpretation Code 3.0-78.0 [facility] Comment on above: Order Comment: Comme nts: SPECIMEN #3 'TROP' Serial specimen #1, #2 or #3: 3 Result Comment: Crit ical Result(s) Called at: 06:39:47 01/08/2023 by: Regan Castellanos. Nathan Ji RN ([facility]). Results read back by same. Please Note: New Test Units and Gender Specific Reference Ranges. For more information see Policy Stat Procedure [place] High Sensitivity Troponin (TNIH) and attachments. Performed By: #### L 500.2500, L500.4100, L501.4020, L100.0100 #### [facility] [address] [place], [address] TROPONIN-I HS 150 pg/mL Invalid Interpretation Code 3.0-78.0 [facility] Comment on above: Order Comment: Comme nts: SPECIMEN #2'TROP' Serial specimen #1, #2 or #3: 2 Result Comment: Mckenna alvarez Note: New Test Units and Gender Specific Reference Ranges. For more information see Policy Stat Procedure [place] High Sensitivity Troponin (TNIH) and attachments. Performed By: #### L 501.5200, L501.2300 #### [facility] [address] [place], [address] TROPONIN-I HS 144 pg/mL Invalid Interpretation Code 3.0-78.0 [facility] Comment on above: Order Comment: Comme nts: SPECIMEN #3 'TROP' Serial specimen #1, #2 or #3: 3 Result Comment: Crit ical Result(s) Called at: 00:43:30 01/08/2023 by: ZEE MIGUEL TO LAUREN PRETTY RN ([facility]) Results read back by same. Please Note: New Test Units and Gender Specific Reference Ranges. For more information see Policy Stat Procedure [place] High Sensitivity Troponin (TNIH) and attachments. Performed By: #### L 500.2500, L500.4100, L501.4020, L100.0100 #### [facility] [address] [place], [address] Laboratory - Chemistry and C hemistry - challengeOrdered By: Roosevelt Kruse on 01-08-2023 Magnesium [Mass/Vol] 2.2 mg/dL 1.6-2.6 [facility] Lipid Profileon 01-08-2023 Cholesterol [Mass/Vol] 110 mg/dL Normal 200 [facility] Comment on above: Order Comment: Comme nts: SPECIMEN #3 'TROP' Serial specimen #1, #2 or #3: 3 Result Comment: <200 mg/dL Desirable 200-240 mg/dL Borderline >240 mg/dL High Risk Performed By: #### L 500.2500, L500.4100, L501.4020, L100.0100 #### [facility] [address] [place], [address] Cholesterol in HDL [Mass/Vol] 38 mg/dL Low [facility] Comment on above: Order Comment: Comme nts: SPECIMEN #3 'TROP' Serial specimen #1, #2 or #3: 3 Result Comment: The drugs N-Acetylcysteine and Metamizole may falsely depress this assay. Reference Range HDL <40 mg/dL Low HDL Cholesterol HDL >or= 60 mg/dL High HDL Cholesterol Performed By: #### L 500.2500, L500.4100, L501.4020, L100.0100 #### [facility] [address] [place], [address] Cholesterol in LDL [Mass/Vol] 56 mg/dL Normal 0-130 [facility] Comment on above: Order Comment: Comme nts: SPECIMEN #3 'TROP' Serial specimen #1, #2 or #3: 3 Performed By: #### L 500.2500, L500.4100, L501.4020, L100.0100 #### [facility] [address] [place], [address] Cholesterol in VLDL [Mass/Vol] 16 mg/dL Normal 5-40 [facility] Comment on above: Order Comment: Comme nts: SPECIMEN #3 'TROP' Serial specimen #1, #2 or #3: 3 Performed By: #### L 500.2500, L500.4100, L501.4020, L100.0100 #### [facility] [address] [place], [address] Triglyceride [Mass/Vol] 80 mg/dL Normal [facility] Comment on above: Order Comment: Comme nts: SPECIMEN #3 'TROP' Serial specimen #1, #2 or #3: 3 Result Comment: The drugs N-Acetylcysteine and Metamizole may falsely depress this assay. Serum Triglycerides Reference Interval Normal <150 mg/dL Borderline high 150 - 199 mg/dL High 200 - 499 mg/dL Very High > or = 500 mg/dL Performed By: #### L 500.2500, L500.4100, L501.4020, L100.0100 #### [facility] [address] [place], [address] Magnesiumon 01-08-2023 Magnesium [Mass/Vol] 2.2 mg/dL Normal 1.6-2.6 [facility] Comment on above: Performed By: #### L 501.5200, L501.2300 #### [facility] [address] [place], [address] No Panel InformationOrdered By: Cesar Henriquez on 01-08-2023 Troponin I High Sensitivity 143 pg/mL 3.0-78.0 [facility] Comment on above: Critical Result(s) C alled at: 06:39:47 01/08/2023 by: Regan Castellanos. Nathan Ji RN ([facility]). Results read back by same. Please Note: New Test Units and Gender Specific Reference Ranges. For more information see Policy Stat Procedure [place] High Sensitivity Troponin (TNIH) and attachments. Phosphoruson 01-08-2023 Phosphate [Mass/Vol] 4.3 mg/dL Normal 2.5-4.9 [facility] Comment on above: Performed By: #### L 501.5200, L501.2300 #### [facility] [address] [place], [address] Review by pathologistOrdered By: Cesar Henriquez on 01-08-2023 Pathologist review Carlos Manuel (Unsp spec) [Interp] Martha jarvis [facility] Pathologist review Carlos Manuel (Unsp spec) [Interp] Reviewed [facility] Comment on above: Previous reported re sult: Martha jarvis Edited by: RGOOD on 01/12/23:0940Leukocytosis.Macrocytic anemia.Clinical correlation necessary.Vasquez Gupta M.D. 01/12/23 AMENDED REPORT 01/12/23 0940 PATH REV previously reported as: Martha jarvis Serum or plasma cholesterol in HDL measurement (mass/volume)Ordered By: Cesar Henriquez on 01-08-2023 Cholesterol in HDL [Mass/Vol] 38 mg/dL >40 [facility] Comment on above: The drugs N-Acetylcy steine and Metamizole may falsely depress this assay. Reference Range HDL <40 mg/dL Low HDL Cholesterol HDL >or= 60 mg/dL High HDL Cholesterol Serum or plasma cholesterol in VLDL measurement (mass/volume)Ordered By: Cesar Henriquez on 01-08-2023 Cholesterol in VLDL [Mass/Vol] 16 mg/dL 5-40 [facility] Serum or plasma low density lipoprotein (LDL) cholesterol measurement (mass/volume)Ordered By: Cesar Henriquez on 01-08-2023 Cholesterol in LDL [Mass/Vol] 56 mg/dL 0-130 [facility] 12 Lead EKGon 01-07-2023 12 Lead EKG [facility] [address] [address] 12 Lead EKG 01/07/232006 MR#: [id number] Acct: [id number] Name: LORRI COUGHLIN Rep #: [id number] : 1960 62 From: Eulalio Gutierrez MD Attending Dr: Dr. Roosevelt Kruse MD Status : ADM IN Ordering Dr: Thomas Snell MD Date: 01/07/23 Location: [facility] Sex: M C Admitted: 01/07/23 Test Reason : SOB Blood Pressure : / mmHG Vent. Rate : 096 BPM Atrial Rate : 096 BPM P-R Int : 142 ms QRS Dur : 084 ms QT Int : 362 ms P-R-T Axes : 057 059 079 degrees QTc Int : 457 ms Normal sinus rhythm Possible Left atrial enlargement Left ventricular hypertrophy ( Sokolow-Carlson , [place] product ) Nonspecific T wave abnormality Abnormal ECG Confirmed by MATT OSBORNE, EULALIO ([id number]), editor house organ TIFF LUNA ([id number]) on 01/08/2023 1:15:32 PM Referred By: Confirmed By:EULALIO GUTIERREZ MD 01/08/23 1315 Date Eulalio Gutierrez MD CC: Dr. Thomas Snell MD; Dr. Sophie Craft MD; Dr. Roosevelt Kruse MD Signed Normal [facility] Absolute lymphocyte countOrd ered By: Thomas Snell on 01-07-2023 Lymphocytes Auto (Unsp spec) [#/Vol] 2.45 10*3/uL 0.83-4.51 [facility] BNP,B-Type NATRIURETIC PEPTI Hemal 01-07-2023 Natriuretic peptide B (Bld) [Mass/Vol] 1010.2 pg/mL High 0-100 [facility] Comment on above: Performed By: #### L 501.5200, L501.2300 #### [facility] [address] [place], [address] Basic Metabolic Profile (BMP )on 01-07-2023 BUN/CRE 14.9 RATIO Normal 10-20 [facility] Comment on above: Order Comment: 'TROP ' Serial specimen #1, #2 or #3: 1 Performed By: #### L 501.5200, L501.2300 #### [facility] [address] [place], [address] CA,Total 8.7 mg/dL Normal 8.5-10.1 [facility] Comment on above: Order Comment: 'TROP ' Serial specimen #1, #2 or #3: 1 Performed By: #### L 501.5200, L501.2300 #### [facility] [address] [place], [address] Chloride [Moles/Vol] 103 mmol/L Normal 98-107 [facility] Comment on above: Order Comment: 'TROP ' Serial specimen #1, #2 or #3: 1 Performed By: #### L 501.5200, L501.2300 #### [facility] [address] [place], [address] CO2 [Moles/Vol] 28.0 mmol/L Normal 21.0-32.0 [facility] Comment on above: Order Comment: 'TROP ' Serial specimen #1, #2 or #3: 1 Performed By: #### L 501.5200, L501.2300 #### [facility] [address] [place], [address] Creatinine [Mass/Vol] 1.41 mg/dL High 0.70-1.30 [facility] Comment on above: Order Comment: 'TROP ' Serial specimen #1, #2 or #3: 1 Result Comment: The validity of the calculated GFR GFRAA in patients over 70 years has not been determined. Clinical correlation is essential. Performed By: #### L 501.5200, L501.2300 #### [facility] [address] [place], [address] ECRCL 53.00 ml/min Normal [facility] Comment on above: Order Comment: 'TROP ' Serial specimen #1, #2 or #3: 1 Performed By: #### L 501.5200, L501.2300 #### [facility] [address] [place], [address] EST GFR - AA 65 mL/min Normal >60 [facility] Comment on above: Order Comment: 'TROP ' Serial specimen #1, #2 or #3: 1 Result Comment: Afri can [place] GFR Calc Performed By: #### L 501.5200, L501.2300 #### [facility] [address] [place], [address] GAP 6 Normal 5-15 [facility] Comment on above: Order Comment: 'TROP ' Serial specimen #1, #2 or #3: 1 Performed By: #### L 501.5200, L501.2300 #### [facility] [address] [place], [address] GFR/1.73 sq M.predicted among non-blacks MDRD (S/P/Bld) [Vol rate/Area] 54 mL/min/{1.73_m2} Low >60 [facility] Comment on above: Order Comment: 'TROP ' Serial specimen #1, #2 or #3: 1 Result Comment: Non- GFR Calc Performed By: #### L 501.5200, L501.2300 #### [facility] [address] [place], [address] Glucose [Mass/Vol] 105 mg/dL Normal 74-106 [facility] Comment on above: Order Comment: 'TROP ' Serial specimen #1, #2 or #3: 1 Result Comment: Fast ing Glucose result from 100 to 125 mg/dL suggests IMPAIRED HOMEOSTASIS per A.D.A. criteria. Performed By: #### L 501.5200, L501.2300 #### [facility] [address] [place], [address] Potassium [Moles/Vol] 3.7 mmol/L Normal 3.5-5.1 [facility] Comment on above: Order Comment: 'TROP ' Serial specimen #1, #2 or #3: 1 Performed By: #### L 501.5200, L501.2300 #### [facility] [address] [place], [address] Sodium [Moles/Vol] 137 mmol/L Normal 136-145 [facility] Comment on above: Order Comment: 'TROP ' Serial specimen #1, #2 or #3: 1 Performed By: #### L 501.5200, L501.2300 #### [facility] [address] [place], [address] Urea nitrogen [Mass/Vol] 21 mg/dL High 7-18 [facility] Comment on above: Order Comment: 'TROP ' Serial specimen #1, #2 or #3: 1 Performed By: #### L 501.5200, L501.2300 #### [facility] [address] [place], [address] Basophil percentageOrdered B y: Thomas Snell on 01-07-2023 Basophils/100 WBC (Bld) 0.2 % 0-1 [facility] Chloride [Moles/Vol] 103 mmol/L 98-[address] [facility] Eosinophils/100 WBC (Bld) 0.1 % 0-5 [facility] Glucose [Mass/Vol] 105 mg/dL 74-106 [facility] Comment on above: Fasting Glucose resu lt from 100 to 125 mg/dL suggests IMPAIRED HOMEOSTASIS per A.D.A. criteria. Neutrophils (Bld) [#/Vol] 13.5 10*3/uL 2.0-7.7 [facility] Neutrophils/100 WBC (Bld) 75.3 % 47-70 [facility] Potassium [Moles/Vol] 3.7 mmol/L 3.5-5.1 [facility] Sodium [Moles/Vol] 137 mmol/L 136-145 [facility] WBC (Bld) [#/Vol] 17.9 10*3/uL 4.4-11.0 [facility] Blood erythrocytes count (nu mber/volume)Ordered By: Thomas Snell on 01-07-2023 RBC (Bld) [#/Vol] 3.51 10*6/uL 4.6-6.2 [facility] Blood hemoglobin measurement (mass/volume)Ordered By: Thomas Snell on 01-07-2023 Hemoglobin (Bld) [Mass/Vol] 12.0 g/dL 13.0-16.5 [facility] Blood lymphocytes/100 leukoc ytesOrdered By: Thomas Snell on 01-07-2023 Lymphocytes/100 WBC (Bld) 13.7 % 19-41 [facility] Blood manual differential co mment interpretation (narrative result)Ordered By: Thomas Snell on 01-07-2023 Manual differential comment Carlos Manuel (Bld) [Interp] SCANNED [facility] Comment on above: MONOCYTOSIS NOTED Blood monocytes/100 leukocyt esOrdered By: Thomas Snell on 01-07-2023 Monocytes/100 WBC (Bld) 10.1 % 0-10 [facility] Blood platelet mean volumeOr dered By: Thomas Snell on 01-07-2023 Platelet mean volume (Bld) [Entitic vol] 9.5 fL 6.2-12.0 [facility] CNOVon 01-07-2023 CNOV Office Visit (UCWSTR) REGAN COUGHLIN ([id number]) 1960 M Date Time Provider Department 01/07/23 6:30 PM CHRIS HAYWOOD [facility] During your visit today, we recorded the following information about you: Temperature Pulse Respiration Blood pressure 99.6 degrees 111/minute 24/minute 173/126 Weight 70.5 kg Chris Haywood MD 01/07/2023 7:20 PM Signed Patient presents with: Shortness of Breath: X3 weeks, treated 01/04 for same HPI: Feeling sick with shortness of breath and cough for 3 weeks. Diagnosed with lower respiratory tract infection at [facility] 01/04/23. Although he has not been coughing as much, he has significantly worse shortness of breath today and xiphoid area pain with coughing. Positive symptoms: Cough, red flecked phlegm, Shortness of breath, Wheezing, Chest tightness, Chest pain, mild Sore throat, Sinus pressure, Nasal Congestion, Rhinorrhea, Post nasal drainage, epistaxis, traveled to [place] for family reunion over the weekend, Negative symptoms: Body Aches, Headache, Nausea, Vomiting, Diarrhea, OTC: prescribed prednisone, albuterol, and zpak 3 days ago Denies history of hypertension or asthma. Past Medical History: Diagnosis Date AAA (abdominal aortic aneurysm) Coronary artery disease 2019 2x stents, Dr. Eulalio Gutierrez at [facility] TIA (transient ischemic attack) Past Surgical History: Past Surgical History: Procedure Laterality Date CORONARY STENT PLACEMENT 02/2020 x2 IR ANGIOGRAM ENDOVASCULAR AORTIC REPAIR 05/20/2022 OPEN FEMORAL ARTERY EXPOSURE FOR DELIVERY OF ENDOVASCULAR PROSTHESIS OTHER SURGICAL HISTORY Bilateral 05/20/2022 Exploration groin, evacuation of hematoma WISDOM TOOTH EXTRACTION MEDICATIONS: Current Outpatient Medications Medication Sig aspirin, enteric coated (ASPIRIN, ENTERIC COATED) 81 mg EC tablet Take 81 mg by mouth. atorvastatin (LIPITOR) 80 mg tablet Take 80 mg by mouth. clopidogrel (PLAVIX) 75 mg tablet Take 75 mg by mouth. albuterol HFA (PROAIR HFA) 90 mcg/actuation inhaler Inhale 2 Puffs as instructed every 6 hours as needed for wheezing/shortness of breath. predniSONE (DELTASONE) 20 mg tablet Take 1 tablet by mouth twice daily for 5 days. azithromycin (ZITHROMAX Z-MEERA) 250 mg tablet 2 tablets by mouth first day then 1 tablet the next 4 days No current facility-administere d medications for this visit. ALLERGIES: ALLERGIES No Known Allergies VITALS: BP (!) 173/126 Pulse 111 Temp 37.6 ?C (99.6 ?F) Resp 24 Wt 70.5 kg (155 lb 6.4 oz) SpO2 94% Date: BP: 01/07/2023 173/126 01/04/2023 161/78 PHYSICAL EXAM: GEN: pleasant, alert, mildly ill appearing HEENT: PERRL, EOMI, conjunctiva clear Ears: TMs without erythema, bulge, or effusion Sinuses: non-tender frontal sinus, non-tender maxillary sinuses Throat: moist mucous membranes, mild erythema, no exudate Neck: supple, no thyromegaly, left anterior chain lymphadenopathy at the level of the thyroid cartilage. HEART: regular rate, fast rhythm, no murmurs LUNGS: bilateral coarse wheezes and crackles, mild increased WOB CHEST: no reproducible chest wall pain with palpation of lower anterior chest or mid epigastric abdomen. ASSESSMENT/PLAN: 1. Subacute cough - ICD9: 786.2, ICD10: R05.2 (primary diagnosis) 2. Hemoptysis - ICD9: 786.30, ICD10: R04.2 3. SOB (shortness of breath) - ICD9: 786.05, ICD10: R06.02 4. Chest pain on breathing - ICD9: 786.52, ICD10: R07.1 5. Elevated blood pressure reading without diagnosis of hypertension - ICD9: 796.2, ICD10: R03.0 6. History of aortic aneurysm - ICD9: V12.59, ICD10: Z86.79 Suspected pneumonia. No COVID test performed during his 3 weeks of illness. Elevated blood pressure, tachypnea, tachycardia, and chest pain should have emergency room evaluation. He will go to [facility] ER. Report called. Chris Haywood MD Allergies As of Date: 01/07/2023 (No Known Allergies) Date Reviewed: 01/07/2023 Reviewed by: Irene Diana MA - Fully Assessed Reason for Visit: Shortness of Breath [227] Cmt: X3 weeks, treated 01/04 for same Primary Visit Diagnosis:Subacute cough [R05.2] Other Visit Diagnoses:Hemoptysis [R04.2] SOB (shortness of breath) [R06.02] Chest pain on breathing [R07.1] Elevated blood pressure reading without diagnosis of hypertension [R03.0] History of aortic aneurysm [Z86.79] Prescriptions as of 01/07/2023 - aspirin, enteric coated (ASPIRIN, ENTERIC COATED) 81 mg EC tablet Take 81 mg by mouth. - atorvastatin (LIPITOR) 80 mg tablet Take 80 mg by mouth. - clopidogrel (PLAVIX) 75 mg tablet Take 75 mg by mouth. - albuterol HFA (PROAIR HFA) 90 mcg/actuation inhaler Inhale 2 Puffs as instructed every 6 hours as needed for wheezing/shortness of breath. - predniSONE (DELTASONE) 20 mg tablet Take 1 tablet by mouth twice daily for 5 days. - azithromycin (ZITHROMAX Z-MEERA) 250 mg tablet (more content not included)... Normal [facility] Chest 1 View (Portable)on Chest 1 View (Portable) [facility] Imaging Services [address] [place] [id number] Chest 1 View (Portable) MR#: [id number] Acct: [id number] Name: LORRI COUGHLIN Rep #: [id number] : 1960 M 62 From: Giorgio Tamayo MD PCP: Dr. Sophie Craft MD Status: REG ER Study: Chest 1 View (Portable) Date of Exam: 01/07/23 Exam# [id number] Ordering Dr: Thomas Snell MD STUDY: X-RAY CHEST REASON FOR EXAM: Male, 62 years old. Shortness of Breath TECHNIQUE: Single AP portable view of the chest. COMPARISON: October 30, 2021 FINDINGS: There are monitoring devices. There are mild mid and lower lung interstitial increased opacities. There are small pleural effusions. Normal size heart. Normal mediastinum and jenifer. Normal visualized pulmonary arteries. Normal visualized aortic arch and descending thoracic aorta. Normal visualized thoracic spine. Normal visualized ribs, clavicles, and shoulders. There is no demonstrated abnormality of the visualized soft tissue structures of the upper abdomen. RAD/Chest 1 View (Portable) IMPRESSION: Mild interstitial edema or infiltrates. Small pleural effusions. Electronically Signed: Giorgio Tamayo MD at 20:43 EDT , CC: Dr. Thomas Snell MD; Dr. Sophie Craft MD Precision Lens Technician: Signed Normal [facility] Determination of erythrocyte mean corpuscular volume (MCV)Ordered By: Thomas Snell on 01-07-2023 MCV (RBC) [Entitic vol] 96.3 fL 80-94 [facility] Emergency Department Summary on 01-07-2023 Emergency Department Summary [facility] Medical Records Department [address] [place] [address] Emergency Department Summary 01/07/23 MR#: [id number] Acct: [id number] Name: LORRI COUGHLIN Rep #: [id number] : 1960 62 From: Thomas Snell MD PCP: Dr. Sophie Craft MD Status:REG ER Location: ED HPI History of Present Illness Chief Complaint: Shortness of Breath Narrative Narrative: 62-year-old male past medical history of coronary artery disease with stenting, AAA that has also been stented, presents with 3 weeks of shortness of breath, and coughing up phlegm. He states that for the past 3 weeks he has been sick with bronchitis type symptoms. He is already been told by his primary care provider, Dr. Bailey, that he needs to quit smoking. He went to urgent care and [place] a few days ago on Thursday, where he states they started him on 2 antibiotics and steroids. He has been using his inhaler without relief and he still feels short of breath. However he denies any chest pain, nausea, vomiting, or sweating. He states he does not take anything for his blood pressure because he never needed to but noticed yesterday that his blood pressure was elevated. He presents because of the shortness of breath that has had for 3 weeks. He states Mucinex has been helping him. 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) Home Medications aspirin 81 mg tablet,delayed release 81 mg PO DAILY@0800 HEALTH MAINTENANCE 10/30/21 [History Last Taken 10/30/21] atorvastatin 80 mg tablet 80 mg PO QHS #90 tabs 12/02/21 [Rx Last Taken Unknown] clopidogrel 75 mg tablet 75 mg PO DAILY #90 tabs 12/02/21 [Rx Last Taken Unknown] Allergy/AdvReac Type Severity Reaction Status Date / Time No Known Allergies Allergy Verified 01/07/23 19:20 Family History Father Colon cancer Surgical History History of coronary artery stent placement (03/22/20) Social History Smoking Status: Current every day smoker tobacco type: cigarettes Tobacco: How many years used: 40 alcohol intake: never substance use type: does not use what type of physical activity do you participate in: none ROS ROS ED ROS Narrative Constitutional: No fever, no chills. HEENT: No sore throat. No neck pain. No loss of vision. No rhinorrhea. Cardiovascular: No chest pain. No palpitations. No pedal edema. Respiratory: Occasionally productive cough, positive shortness of breath. Abdominal: No abdominal pain. No nausea. No vomiting. Genitourinary: No dysuria. No hematuria. Musculoskeletal: No myalgias. No arthralgias. Neurologic: No headaches. No dizziness. No lightheadedness. Skin: No rash. No change in color. Psychiatric: No depression. No anxiety. EXAM Physical Exam Const Vital Signs: 01/07/23 19:18 01/07/23 19:36 01/07/23 20:20 Temperature 97 F L Temperature Source Oral Pulse Rate 102 H Respiratory Rate 16 Respiratory Effort Normal Respiratory Depth Normal Respiratory Pattern Normal Blood Pressure 198/117 H Blood Pressure Mean 144 Pulse Ox 98 Oxygen Delivery Method Room Air Room Air 01/07/23 20:18 01/07/23 20:23 01/07/23 20:32 Temperature Temperature Source Pulse Rate 94 Respiratory Rate 93 H Respiratory Effort Respiratory Depth Respiratory Pattern Blood Pressure 168/114 H 174/95 H 158/92 H Blood Pressure Mean 132 121 114 Pulse Ox Oxygen Delivery Method MDM MDM MDM Narrative Medical decision making narrative: Comprehensive work-up was pursued. For his blood pressure of 198/117, he was administered hydralazine. I do feel chest x-ray lab work is indicated to help rule out pneumonia or other causes of his shortness of breath. Although pneumothorax is in the differential, his history and physical is not suggestive of that. Did review his prior records. His medication list does not list any antihypertensive but given his history of coronary artery disease, prior [place], TIA, AAA repair, I do find it questionable that he is not on any antihypertensives. EKG was obtained and interpreted by myself independently as normal sinus rhythm at 96 bpm without ectopy or acute ST changes. No STEMI. There is no significant change from an EKG dated October 30, 2021 with the exception of left ventricular hypertrophy by voltage criteria. I reviewed his laboratory work from today and he has an elevated white count (more content not included)... Normal [facility] H AND P Exam - [facility] 01-07-2023 H&P Exam - Hospitalist [facility] Medical Records Department [address] [place] [address] H P Exam - Hospitalist 01/07/234 MR#: [id number] Acct: [id number] Name: LORRI COUGHLIN Rep #: [id number] : 1960 62 From: Cesar Henriquez MD PCP: Dr. Sophie Craft MD Status:ADM IN Location: [facility] [id number] HPI - General General Date of Admission: 01/07/23 Date of Service: 01/07/23 Chief Complaint: Shortness of breath HPI Narrative LORRI COUGHLIN, is a 62 M with a significant history of CAD status post stent; and AAA who presents to the emergency department with 3-week history of progressively worsening shortness of breath. Associated with his symptoms is a productive cough. Patient is still on antibiotics and steroids obtained from a visit to the urgent care. [facility] Medical History (Updated 01/08/23 @ 10:[address] 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) Home Medications aspirin 81 mg tablet,delayed release 81 mg PO DAILY@0800 HEALTH MAINTENANCE 10/30/21 [History Last Taken 10/30/21] atorvastatin 80 mg tablet 80 mg PO QHS hyperlipidemia #90 tabs 12/02/21 [Rx Last Taken Unknown] Allergy/AdvReac Type Severity Reaction Status Date / Time No Known Allergies Allergy Verified 01/07/23 19:20 Family History Father Colon cancer Surgical History History of coronary artery stent placement (03/22/20) Social History Smoking Status: Current every day smoker tobacco type: cigarettes Tobacco: How many years used: 40 alcohol intake: never substance use type: does not use what type of physical activity do you participate in: none ROS ROS Narrative Pertinent positives and pertinent negatives as noted in HPI. All other systems were reviewed and are negative Vital Signs Vital Signs Vital Signs: 01/07/23 19:18 01/07/23 19:36 01/07/23 20:20 Temperature 97 F L Temperature Source Oral Pulse Rate 102 H Respiratory Rate 16 Respiratory Effort Normal Respiratory Depth Normal Respiratory Pattern Normal Blood Pressure 198/117 H Blood Pressure Mean 144 Pulse Ox 98 Oxygen Delivery Method Room Air Room Air 01/07/23 20:18 01/07/23 20:23 01/07/23 20:32 Temperature Temperature Source Pulse Rate 94 Respiratory Rate 93 H Respiratory Effort Respiratory Depth Respiratory Pattern Blood Pressure 168/114 H 174/95 H 158/92 H Blood Pressure Mean 132 121 114 Pulse Ox Oxygen Delivery Method Weight Weight: 69.882 kg Body Mass Index (BMI) 22.7 Physical Exam Narrative Physical exam: General: Well-nourished, well-developed. Head: Normocephalic, atraumatic, no tenderness Eyes: Vision is grossly intact. EOMI ENT, no trauma, moist mucous membranes, no rhinorrhea Neck: Nontender, No thyromegaly. CVS: Regular rate and rhythm. S1-S2 present. No murmur, gallop or rub. Respiratory : Blood tinged sputum diminished. Chest wall nontender Abdomen: Soft, nontender, nondistended, normal bowel sounds, no masses : Deferred Back: Nontender, no CVA tenderness. Extremities: Nontender full range of motion, no trauma Skin: Normal color, no trauma, abrasions Neuro: Alert, oriented, cranial nerves II through XII grossly intact. Psychiatry: Normal mood. Normal affect. Not depressed. Not anxious. Results Lab / Micro Data 01/08/23 05:38 01/08/23 05:38 Labs: Laboratory Results - last 24 hr 01/07/23 20:13: WBC 17.9 H, RBC 3.51 L, Hgb 12.0 L, Hct 33.8 L, MCV 96.3 H, MCH 34.2 H, MCHC 35.5, RDW Std Deviation 46.8 H, RDW Coeff of Marcos 13.4, Plt Count 230, MPV 9.5, Immature Gran % (Auto) 0.600, Neut % (Auto) 75.3 H, Lymph % (Auto) 13.7 L, [place] % (Auto) 10.1 H, Eos % (Auto) 0.1, Baso % (Auto) 0.2, Absolute Neuts (auto) 13.5 H, Absolute Lymphs (auto) 2.45, Nucleated RBC % 0, Differential Comment SCANNED, Diff Path Review August, Sodium 137, Potassium 3.7, Chloride 103, Carbon Dioxide 28.0, Anion Gap 6, BUN 21 H, Creatinine 1.41 H, Estim Creat Clear Calc 53.00, Est GFR (MDRD) Af Amer 65, Est GFR (MDRD) Non-Af 54 L, BUN/Creatinine Ratio 14.9, Glucose 105, Calcium 8.7, Troponin I High Sens 127 H*, B-Natriuretic Peptide 1010.2 H Radiology Impression Chest X-Ray 01/07/23 20:25 IMPRESSION: Mild interstitial edema or infiltrates. Small pleural effusions. Electronically Signed: Giorgio Tamayo MD at 20:43 EDT Reading Location ID and State: [address] [place] [address] , Service support [phone] (more content not included)... Normal [facility] Hematocrit Auto (Bld) [Volum e fraction]Ordered By: Thomas Snell on 01-07-2023 Hematocrit (Bld) [Volume fraction] 33.8 % 40-54 [facility] L501.4020on 01-07-2023 TROPONIN-I HS 127 pg/mL Invalid Interpretation Code 3.0-78.0 [facility] Comment on above: Order Comment: 'TROP ' Serial specimen #1, #2 or #3: 1 Result Comment: Crit ical Result(s) Called at: 20:48:30 01/07/2023 by: LORRI RAZA TO NILS DANIELS. Results read back by same. Please Note: New Test Units and Gender Specific Reference Ranges. For more information see Policy Stat Procedure [place] High Sensitivity Troponin (TNIH) and attachments. Performed By: #### L 501.5200, L501.2300 #### [facility] [address] [place], [address] Laboratory - Chemistry and C hemistry - challengeOrdered By: Thomas Snell on 01-07-2023 CO2 [Moles/Vol] 28.0 mmol/L 21.0-32.0 [facility] Natriuretic peptide B (Bld) [Mass/Vol] 1010.2 pg/mL 0-100 [facility] Urea nitrogen/Creatinine [Mass ratio] 14.9 mg/mg 10-20 [facility] - Hematology and Cell countsOrdered By: Thomas Snell on 01-07-2023 Erythrocyte distribution width (RBC) [Entitic vol] 46.8 fL 35.1-43.9 [facility] Erythrocyte distribution width (RBC) [Ratio] 13.4 % 11.6-14.6 [facility] Immature granulocytes/100 WBC (Bld) 0.600 % 0.0-0.9 [facility] Comment on above: IG% - Immature Granu locytes (promyelocytes, myelocytes and metamyelocytes) > 1% indicates that a LEFT SHIFT is Present. MCH (RBC) [Entitic mass] 34.2 pg 27.0-32.0 [facility] Nucleated RBC/100 WBC (Bld) [Ratio] 0 % 0-5 [facility] MCHC Auto (RBC) [Mass/Vol]Or dered By: Thomas Snell on 01-07-2023 MCHC (RBC) [Mass/Vol] 35.5 g/dL 32-36 [facility] No Panel InformationOrdered By: Thomas Snell on 01-07-2023 Estimated Creatinine Clearance Calc 53.00 ml/min [facility] Estimated GFR (MDRD) Amer 65 mL/min >60 [facility] Comment on above: GFR Calc Estimated GFR (MDRD) Non-Af Amer 54 mL/min >60 [facility] Comment on above: Non- GFR Calc Troponin I High Sensitivity 127 pg/mL 3.0-78.0 [facility] Comment on above: Critical Result(s) C alled at: 20:48:30 01/07/2023 by: LORRI RAZA TO NILS DANIELS. Results read back by same. Please Note: New Test Units and Gender Specific Reference Ranges. For more information see Policy Stat Procedure [place] High Sensitivity Troponin (TNIH) and attachments. Platelets bldOrdered By: Akiko Snell on 01-07-2023 Platelets (Bld) [#/Vol] 230 10*3/uL 150-450 [facility] Review by pathologistOrdered By: Thomas Snell on 01-07-2023 Pathologist review Carlos Manuel (Unsp spec) [Interp] May [facility] Serum or plasma calcium shandra urement (mass/volume)Ordered By: Thomas Snell on 01-07-2023 Calcium [Mass/Vol] 8.7 mg/dL 8.5-10.1 [facility] Serum or plasma creatinine m easurement (mass/volume)Ordered By: Thomas Snell on 09-13-2023 Creatinine [Mass/Vol] 1.41 mg/dL 0.70-1.30 [facility] Comment on above: The validity of the calculated GFR & GFRAA in patients over 70 years has not been determined. Clinical correlation is essential. Serum or plasma urea nitroge n measurement (mass/volume)Ordered By: Thomas Snell on 01-07-2023 Urea nitrogen [Mass/Vol] 21 mg/dL 7-18 [facility] Thin prep Papanicolaou smear with manual screeningOrdered By: Thomas Snell on 01-07-2023 Thin prep Papanicolaou smear with manual screening 6 5-15 [facility] CNOVon 01-04-2023 CNOV Office Visit ([place]) REGAN COUGHLIN ([id number]) 1960 M Date Time Provider Department 01/04/23 1:30 PM YEN REYNOSO RINA During your visit today, we recorded the following information about you: Temperature Pulse Respiration Blood pressure 98.1 degrees 72/minute 18/minute 161/78 Weight 68.7 kg Yen Reynoso, DIRECTOR MARKET INTELLIGENCE.CONCRETE BLOCK [employer]KER 01/04/2023 2:26 PM Signed January 04, 2023 Subjective Chief Complaint: Cough (Symptoms started 3 weeks ago. Mucinex/Robitussin.) and Shortness of Breath HPI: Regan Coughlin is a 62 year old male who presents today for complaints of cough, congestion, runny nose and shortness of breath. Pt states symptoms started 3 weeks ago with nasal congestion and cough. Pt reports cough is keeping him from sleeping well and he is feeling short of breath. Pt denies any chest pain and reports he does smoke occasionally. Pt has taken Mucinex with some relief, states he is coughing up brown phlegm. PAST MEDICAL HISTORY Diagnosis Date H/O heart artery stent Mixed hyperlipidemia PAST SURGICAL HISTORY Procedure Laterality Date HEART SURGERY HX History reviewed. No pertinent family history. Social History Tobacco Use Smoking status: Every Day Packs/day: .5 Types: Cigarettes Smokeless tobacco: Never Vaping Use Vaping Use: Never used Substance Use Topics Alcohol use: Not Currently Drug use: Not Currently ALLERGIES No Known Allergies There is no immunization history on file for this patient. Current Medications: aspirin, enteric coated (ASPIRIN, ENTERIC COATED) 81 mg EC tablet Take 81 mg by mouth. atorvastatin (LIPITOR) 80 mg tablet Take 80 mg by mouth. clopidogrel (PLAVIX) 75 mg tablet Take 75 mg by mouth. Review of Systems Constitutional: Positive for malaise/fatigue. Negative for chills and fever. HENT: Positive for congestion. Negative for ear pain and sore throat. Respiratory: Positive for cough, sputum production and shortness of breath. Cardiovascular: Negative for chest pain and palpitations. Gastrointestinal: Negative for abdominal pain, diarrhea, nausea and vomiting. Skin: Negative for rash. Neurological: Positive for headaches. Negative for dizziness. Objective BP 188/98 Pulse 72 Temp 98.1 Resp 18 Wt 151 lb 8 oz (68.7kg) SpO2 98% Physical Exam Vitals and nursing note reviewed. Constitutional: General: He is not in acute distress. Appearance: Normal appearance. He is not ill-appearing or toxic-appearing. HENT: Head: Normocephalic and atraumatic. Ears: Comments: Tms cloudy Nose: Congestion present. Mouth/Throat: Mouth: Mucous membranes are moist. Pharynx: Oropharynx is clear. Posterior oropharyngeal erythema present. No oropharyngeal exudate. Cardiovascular: Rate and Rhythm: Normal rate and regular rhythm. Heart sounds: Normal heart sounds. Pulmonary: Effort: Pulmonary effort is normal. Comments: Lungs diminished with faint exp wheezing and scattered rhonchi. Musculoskeletal: Cervical back: Normal range of motion and neck supple. No tenderness. Lymphadenopathy: Cervical: No cervical adenopathy. Skin: General: Skin is warm and dry. Coloration: Skin is not pale. Findings: No erythema or rash. Neurological: General: No focal deficit present. Mental Status: He is alert and oriented to person, place, and time. Psychiatric: Mood and Affect: Mood normal. Behavior: Behavior normal. Thought Content: Thought content normal. ASSESSMENT/PLAN: 1. Lower respiratory infection - ICD9: 519.8, ICD10: J22 (primary diagnosis) 2. Subacute cough - ICD9: 786.2, ICD10: R05.2 3. SOB (shortness of breath) - ICD9: 786.05, ICD10: R06.02 4. Elevated blood pressure reading without diagnosis of hypertension - ICD9: 796.2, ICD10: R03.0 At this time you are being treated for a lower respiratory infection. Albuterol has been prescribed for wheezing and shortness of breath. Take prednisone and antibiotic with food and separate them by a few hours. Cough and deep breathe and please stop smoking. I recommend taking Guaifenesin, Mucinex, for congestion over the counter and increase fluids while taking this medication. Monitor your symptoms including temperature if you are feeling fevered or chilled and I recommend Tylenol or Ibuprofen for fever or pain if needed. Your blood pressure today was 161/78 on recheck. Monitor BP and follow-up with PCP if BP remains over 130/80 Seek immediate care in the ER if you develop any difficulty breathing or swallowing. Megan Mahmood, DIRECTOR MARKET INTELLIGENCE.[employer]CRETE BLOCK MAKER The above reflects my independent exam and review of the patient's medical record. I saw and examined the patient myself personally. Parts of the HPI, ROS, exam, impression/plan, and testing results may have been copied from the current or previous clinical notes and remain pertinent to today's visit. Current changes have been made and (more content not included)... Normal [facility] 12-05-2022 36 Patient states he is having this test done in [place] and will have result sent to us. Normal [facility] 3612-04-2022 36 LM for pt to call office back. Normal [facility] 12-03-2022 36 Stef, I spoke with patient about scheduling his Us evar duplex and he is going to look for an outside source. I explained we can schedule a FCA prior to the testing but he wants to see other options first. Please advise if necessary, thank you. Normal [facility] Office Visiton 09-11-2022 Follow-up visit [id number] Regan Coughlin 1960 M Date Provider Department Center 09/11/2022 [id number] None Family History Problem Relation Age of Onset No Known Problems Mother No Known Problems Father Family Status - Relation Status Age at Mother Father Level of Service:15351 SD OFFICE/OUTPATIENT ESTABLISHED LOW MDM 20-29 MIN Reason for Visit and Comments: Blood in Urine [646192] [facility] 36on 08-27-2022 36 Pt called and left VM. No other information given. [facility] 36 Attempted to call patient, phone call was disconnected several times. Please advised patient his telephone visit with Dr Wright has been rescheduled due to not having any imaging from his CT. Please tell patient to drop off the disc prior to his next appt on 09/11/22. [place] [id number] 08-20-2022 36 Left Vm for pt to return call to go over results and informed to keep appt with Dr Wright. [place] [id number] 08-18-2022 36 LVM for patient to call the office. [facility] 36 ----- Message from MARISABEL Zamarripa NP sent at 08/15/2022 12:30 PM EDT ----- Please notify the patient the bladder cx revealed that there is low probability bladder cancer. I recommend you still keep your scheduled follow up with Dr. Wright. Thank you. [facility] Basic metabolic 1997 panelon 08-14-2022 Anion gap [Moles/Vol] 8 mmol/L 3 - 13 mmol/L [facility] Calcium [Mass/Vol] 9.3 mg/dL 8.4 - 10. 4 mg/dL [facility] Chloride [Moles/Vol] 105 mmol/L 98 - 10 7 mmol/L [facility] CO2 [Moles/Vol] 30 mmol/L 22 - 30 mmol/L [facility] Creatinine [Mass/Vol] 0.64 mg/dL Low 0.66 - 1.25 mg/dL [facility] GFR/1.73 sq M.predicted MDRD (S/P/Bld) [Vol rate/Area] - PINF [facility] Comment on above: Calculation based on the Chronic Kidney Disease Epidemiology Collaboration (CKD-EPI) equation refit without adjustment for race Glucose [Mass/Vol] 95 mg/dL 70 - 100 mg/dL [facility] Interpretation and review of laboratory results Abnormal [facility] Potassium [Moles/Vol] 4.5 mmol/L 3.5 - 5.1 mmol/L [facility] [employer] Sodium [Moles/Vol] 143 mmol/L 135 - 145 mmol/L [facility] [employer] Urea nitrogen [Mass/Vol] 16 mg/dL 9 - 20 mg/dL [facility] [employer] [facility] [employer] Panel InformationOrdered By: Yaima Romero on 06-11-2022 AAA AP 6.10 cm [employer] Work Phone: AAA TR 6.12 cm [facility] Phone: Ao dist AP 6.10 cm [employer] Work Phone: Ao dist TR 6.12 cm [employer] Work Phone: Ao mid AP 3.08 cm [facility] [employer] Work Phone: Ao mid PSV 78.6 cm/s [facility] [employer] Phone: Ao mid TR 2.95 cm [facility] [employer] Work Phone: Ao prox AP 2.58 cm [facility] Phone: Ao prox PSV 62.9 cm/s [facility] [employer] Work Phone: Ao prox TR 2.58 cm [facility] [employer] Work Phone: EVAR Graft Body PSV 76.0 cm/s [facility] [employer] Work Phone: Evar Left Dist Attach Psv 96.9 cm/s [facility] [employer] Phone: Evar Left Limb Prox Psv 72.1 cm/s [facility] [employer] Work Phone: Evar Right Dist Attach Psv 94.5 cm/s [facility] [employer] Work Phone: EVAR Right Distal Attachment Site Common Iliac Arteries [facility] [employer] Work Phone: Evar Right Limb Prox Psv 75.1 cm/s [facility] Work Phone: EVAR Sup Attach PSV 92.8 cm/s [facility] [employer] Phone: EVAR Superior Attachment Site Mid Aorta [facility] Work Phone: Left JOSÉ 1.23 [facility] Work Phone: Left arm BP 134 mmHg [facility] Work Phone: Left TOMMIE AP 1.44 cm [facility] Work Phone: Left TOMMIE dist PSV 96.9 cm/s [facility] Work Phone: Left TOMMIE TR 1.43 cm [facility] Work Phone: Left dorsalis pedis BP 150 mmHg [facility] Work Phone: Left posterior tibial 167 mmHg [facility] Work Phone: Left renal dist PSV 77.7 cm/s [facility] Work Phone: Left renal dist RAR 0.99 [facility] Work Phone: Left renal mid PSV 63.3 cm/s [facility] Work Phone: Left renal mid RAR 0.81 [facility] Work Phone: Left renal prox PSV 155.1 cm/s [facility] Work Phone: Left renal prox RAR 1.97 [facility] Work Phone: Left Renal RAR 1.97 [facility] Work Phone: Right JOSÉ 1.21 [facility] Work Phone: Right arm BP 136 mmHg [facility] Work Phone: Right TOMMIE AP 1.08 cm [facility] Work Phone: Right TOMMIE dist PSV 94.5 cm/s [facility] Work Phone: Right TOMMIE TR 1.10 cm [facility] Work Phone: Right dorsalis pedis BP 164 mmHg [facility] Work Phone: Right posterior tibial 158 mmHg [facility] Work Phone: Right renal dist PSV 105.5 cm/s [facility] Work Phone: Right renal dist RAR 1.34 [facility] Work Phone: Right renal mid PSV 103.7 cm/s [facility] Work Phone: [phone] Right renal mid RAR 1.32 [facility] Work Phone: [phone] Right renal prox EDV 23.5 cm/s [facility] Work Phone: [phone] Right renal prox PSV 105.5 cm/s [facility] Work Phone: [phone] Right renal prox RAR 1.34 [facility] Work Phone: [phone] Right Renal Prox RI 0.78 [facility] Work Phone: [phone] Right Renal RAR 1.34 [facility] Work Phone: [phone] No Panel Informationon 06-11 Images from the original result were not included. Fusiform infrarenal abdominal aortic aneurysm (AAA) was visualized with dimensions 6.10 cm AP x 6.12 cm TR. No endoleak is noted. Bilateral renal artery stents are patent. Right side findings: Resting JOSÉ is 1.21. This is within the normal range. Left side findings: Resting JOSÉ is 1.23. This is within the normal range. Abdominal Aorta Invasive Procedure History: The patient has an invasive procedure history of endovascular aortic stent. The endovascular aorta stent is patent. Fusiform infrarenal abdominal aortic aneurysm (AAA) was visualized with dimensions 6.10 cm AP x 6.12 cm TR. Right Common Iliac Artery: Patent. Left Common Iliac Artery: Patent. Right External Iliac Artery: Patent. Left External Iliac Artery: Patent. Right Internal Iliac Artery: Not visualized. Left Internal Iliac Artery: Not visualized. JOSÉ Right side findings: Normal resting JOSÉ. Left side findings: Normal resting JOSÉ. Right PVR waveforms: Normal - ankle. Left PVR waveforms: Normal - ankle. EVAR No endoleak is noted. The following EVAR segments are patent: superior attachment, graft body, right limb, left limb, right distal attachment and left distal attachment. Inferior mesenteric artery (ALESSANDRA) was not visualized. The right and left renal arteries are patent. Patient has a fenestrated endovascular aortic repair, renal stents are patent. Bilateral renal artery stents appear patent. Joint Finisher Details A portillo scale, color Doppler imaging and spectral Doppler analysis ultrasound was performed. During the study longitudinal and transverse views were obtained. Pulsed wave doppler was performed. The exam was performed with the patient in the supine position. Overall the study quality was adequate. Study was technically difficult due to: bowel gas. CV CPACS Bacteria identified Cx Nom ( U)Ordered By: Ilsa Hart on 05-22-2022 Interpretation and review of laboratory results Normal [facility] Basic metabolic 1998 panelon 05-22-2022 Anion gap [Moles/Vol] 4 mmol/L 3 - 13 mmol/L [facility] Calcium [Mass/Vol] 8.1 mg/dL Low 8.4 - 10. 4 mg/dL [facility] Chloride [Moles/Vol] 106 mmol/L 98 - 10 7 mmol/L [facility] CO2 [Moles/Vol] 26 mmol/L 22 - 30 mmol/L [facility] Creatinine [Mass/Vol] 0.67 mg/dL 0.66 - 1.25 mg/dL [facility] GFR/1.73 sq M.predicted MDRD (S/P/Bld) [Vol rate/Area] - PINF [facility] Comment on above: Calculation based on the Chronic Kidney Disease Epidemiology Collaboration (CKD-EPI) equation refit without adjustment for race Glucose [Mass/Vol] 112 mg/dL High 70 - 100 mg/dL [facility] Interpretation and review of laboratory results Abnormal [facility] Potassium [Moles/Vol] 3.7 mmol/L 3.5 - 5.1 mmol/L [facility] Sodium [Moles/Vol] 136 mmol/L 135 - 145 mmol/L [facility] Urea nitrogen [Mass/Vol] 16 mg/dL 9 - 20 mg/dL [facility] CBC panel Auto (Bld)Ordered By: Ludin Gloria on 05-22-2022 Erythrocyte distribution width (RBC) [Ratio] 13.6 % 11.5 - 14.5 % [facility] Hematocrit (Bld) [Volume fraction] 31.6 % Low 40.0 - 52.0 % [facility] Hemoglobin (Bld) [Mass/Vol] 11.0 g/dL Low 13.0 - 18.0 g/dL [facility] Interpretation and review of laboratory results Abnormal [facility] MCH (RBC) [Entitic mass] 33.7 pg 26. 0 - 34.0 pg [facility] MCHC (RBC) [Mass/Vol] 34.9 % 32.0 - 36.0 % [facility] MCV (RBC) [Entitic vol] 96.5 fL 80.0 - 98.0 fL [facility] Platelet mean volume (Bld) [Entitic vol] 7.2 fL Low 7.4 - 12.4 fL [facility] Platelets (Bld) [#/Vol] 153 10*3/uL 140 - 440 10*3/uL [facility] RBC (Bld) [#/Vol] 3.27 10*6/uL Low 4.40 - 5.9 0 10*6/uL [facility] WBC (Bld) [#/Vol] 8.5 10*3/uL 3.6 - 10.7 10*3/uL [facility] Hemoglobin (Bld) [Mass/Vol]O rdered By: Adolfo Hull on 05-22-2022 Hematocrit (Bld) [Volume fraction] 29.3 % Low 40.0 - 52.0 % [facility] Interpretation and review of laboratory results Abnormal [facility] Laboratory - Hematology and Cell countsOrdered By: Adolfo Hull on 05-22-2022 Hemoglobin (Bld) [Mass/Vol] 10.7 g/dL Low 13.0 - 18.0 g/dL [facility] Laboratory - Microbiology an d Antimicrobial susceptibilityOrdered By: Ilsa Hart on 05-22-2022 Bacteria identified Cx Nom (U) No growth (<1,000 CFU/mL) [facility] Basic metabolic 1998 panelon 05-20-2022 Anion gap [Moles/Vol] 6 mmol/L 3 - 13 mmol/L [facility] Calcium [Mass/Vol] 8.5 mg/dL 8.4 - 10. 4 mg/dL [facility] Chloride [Moles/Vol] 109 mmol/L High 98 - 10 7 mmol/L [facility] CO2 [Moles/Vol] 23 mmol/L 22 - 30 mmol/L [facility] Creatinine [Mass/Vol] 0.69 mg/dL 0.66 - 1.25 mg/dL [facility] GFR/1.73 sq M.predicted MDRD (S/P/Bld) [Vol rate/Area] - PINF [facility] Comment on above: Calculation based on the Chronic Kidney Disease Epidemiology Collaboration (CKD-EPI) equation refit without adjustment for race Glucose [Mass/Vol] 120 mg/dL High 70 - 100 mg/dL [facility] Interpretation and review of laboratory results Abnormal [facility] Potassium [Moles/Vol] 4.0 mmol/L 3.5 - 5.1 mmol/L [facility] Sodium [Moles/Vol] 138 mmol/L 135 - 145 mmol/L [facility] Urea nitrogen [Mass/Vol] 16 mg/dL 9 - 20 mg/dL [facility] Anion gap [Moles/Vol] 8 mmol/L 3 - 13 mmol/L [facility] Calcium [Mass/Vol] 8.4 mg/dL 8.4 - 10. 4 mg/dL [facility] Chloride [Moles/Vol] 106 mmol/L 98 - 10 7 mmol/L [facility] CO2 [Moles/Vol] 23 mmol/L 22 - 30 mmol/L [facility] Creatinine [Mass/Vol] 0.65 mg/dL Low 0.66 - 1.25 mg/dL [facility] GFR/1.73 sq M.predicted MDRD (S/P/Bld) [Vol rate/Area] - [facility] Comment on above: Calculation based on the Chronic Kidney Disease Epidemiology Collaboration (CKD-EPI) equation refit without adjustment for race Glucose [Mass/Vol] 114 mg/dL High 70 - 100 mg/dL [facility] Interpretation and review of laboratory results Abnormal [facility] Potassium [Moles/Vol] 3.9 mmol/L 3.5 - 5.1 mmol/L [facility] Sodium [Moles/Vol] 137 mmol/L 135 - 145 mmol/L [facility] Urea nitrogen [Mass/Vol] 15 mg/dL 9 - 20 mg/dL [facility] CBC panel Auto (Bld)on 05-20 Erythrocyte distribution width (RBC) [Ratio] 13.3 % 11.5 - 14.5 % [facility] Hematocrit (Bld) [Volume fraction] 40.2 % 40.0 - 52.0 % [facility] Hemoglobin (Bld) [Mass/Vol] 14.2 g/dL 13.0 - 18.0 g/dL [facility] Interpretation and review of laboratory results Abnormal [facility] MCH (RBC) [Entitic mass] 33.6 pg 26. 0 - 34.0 pg [facility] MCHC (RBC) [Mass/Vol] 35.4 % 32.0 - 36.0 % [facility] MCV (RBC) [Entitic vol] 94.8 fL 80.0 - 98.0 fL [facility] Platelet mean volume (Bld) [Entitic vol] 7.5 fL 7.4 - 12.4 fL [facility] Platelets (Bld) [#/Vol] 183 10*3/uL 140 - 440 10*3/uL [facility] RBC (Bld) [#/Vol] 4.24 10*6/uL Low 4.40 - 5.9 0 10*6/uL [facility] WBC (Bld) [#/Vol] 15.4 10*3/uL High 3.6 - 10.7 10*3/uL [facility] CT Abdomen WO contraston Patient Name: REGAN COUGHLIN Exam Date/Time: 05/20/2022 20:10 Procedure: CT ABDOMEN PELVIS WO IV CONTRAST Ordering Provider: LONDON JOSEPH Reason For Exam: HISTORY: Abdominal pain Noncontrast CT the abdomen and pelvis is performed. Earlier aortoiliac endograft placement with bilateral renal artery stenting today. FINDINGS: 1. 6.6 cm abdominal aortic aneurysm with aortoiliac endograft and bilateral renal artery stents appearing in good position. 2. Bilateral small groin hematomas (underlying pseudoaneurysm difficult to exclude without contrast) with small areas of adjacent postoperative soft tissue air/swelling. 3. Areas of tubular stasis in both kidneys, left greater than right, possibly due to small areas of infarction with no evidence of retroperitoneal or intraperitoneal hemorrhage. 4. Small amount of biliary contrast excretion fills the gallbladder, degenerative disc disease lower lumbar spine, Ramirez catheter to the urinary bladder Report Dictated on Electronically Signed By: Qamar Polanco Electronically Signed Date/Time: 05/20/2022 8:50 PM [facility] Qamar Polanco MD - 05/20/2022 Patient Name: REGAN COUGHLIN Exam Date/Time: 05/20/2022 20:10 Procedure: CT ABDOMEN PELVIS WO IV CONTRAST Ordering Provider: LONDON JOSEPH Reason For Exam: HISTORY: Abdominal pain Noncontrast CT the abdomen and pelvis is performed. Earlier aortoiliac endograft placement with bilateral renal artery stenting today. FINDINGS: 1. 6.6 cm abdominal aortic aneurysm with aortoiliac endograft and bilateral renal artery stents appearing in good position. 2. Bilateral small groin hematomas (underlying pseudoaneurysm difficult to exclude without contrast) with small areas of adjacent postoperative soft tissue air/swelling. 3. Areas of tubular stasis in both kidneys, left greater than right, possibly due to small areas of infarction with no evidence of retroperitoneal or intraperitoneal hemorrhage. 4. Small amount of biliary contrast excretion fills the gallbladder, degenerative disc disease lower lumbar spine, Ramirez catheter to the urinary bladder Report Dictated on Electronically Signed By: Qamar Polanco Electronically Signed Date/Time: 05/20/2022 8:50 PM EST [facility] [employer] Radiology Study [facility]narrative[facility] contrastOrdere d By: Qamar Polanco on 05-20-2022 [facility] [employer] Work Phone: Laboratory - Coagulationon 0 05-20-2022 PT Coag (Bld) [Time] 11.5 s 9.0 - 1 2.0 s [facility] [employer] No Panel Informationon 05-20 Blood Expiration Date S [facility] Dispense Status Transfused [facility] Product Blood Type 5100 [facility] Product Blood Type 6200 [facility] PRODUCT CODE [id number] [facility] PRODUCT CODE [id number] [facility] Unit ABO O [facility] Unit ABO A [facility] Unit Number [id number] [facility] [id number] [facility] RH Positive [facility] Unit Volume 300 mL [facility] Normal arterial flow noted within both kidneys on limited examination. STAT Limited evaluation of the bilateral kidneys for flow within the parenchyma. Preliminary Report Preliminary report called to Dr. London on 05/20/2022 at 18:05 EST. Joint Finisher Details A portillo scale, color Doppler imaging and spectral Doppler analysis ultrasound was performed. During the study longitudinal views were obtained. Pulsed wave doppler was performed. The exam was performed with the patient in the supine position. Overall the study quality was limited. Study was technically difficult due to: body habitus and And patient's cooperation.. CV CPACS No Panel InformationOrdered By: Yaima Romero on 05-20-2022 Left Arcuate Renal Artery EDV 9.6 cm/s [employer] Work Phone: Left Arcuate Renal Artery EDV 16.3 cm/s [employer] Work Phone: Left Arcuate Renal Artery PSV 51.9 cm/s [facility] Work Phone: Left kidney length 10.85 cm [employer] Work Phone: Left renal middle parenchyma EDV 10.2 cm/s [facility] Work Phone: Left renal middle parenchyma PSV 27.4 cm/s [facility] Work Phone: Left renal middle parenchyma RI 0.63 [employer] Work Phone: Left Renal Segmental Accel Time 0.02 s [employer] Work Phone: Left Segmental Renal Artery EDV 10.2 cm/s [employer] Work Phone: Left Segmental Renal Artery PSV 27.4 cm/s [employer] Work Phone: Left Segmental Renal Artery RI 0.63 [employer] Work Phone: Right Arcuate Renal Artery EDV 7.7 cm/s [employer] Work Phone: Right Arcuate Renal Artery PSV 22.8 cm/s [employer] Work Phone: Right Arcuate Renal Artery RI 0.66 [employer] Work Phone: Right kidney length 11.43 cm [employer] Work Phone: Right renal middle parenchyma EDV 13.3 cm/s [employer] Work Phone: Right renal middle parenchyma PSV 42.1 cm/s [employer] Work Phone: Right renal middle parenchyma RI 0.68 [employer] Work Phone: Right Renal Segmental Accel Time 0.02 s [employer] Work Phone: Right Segmental Renal Artery EDV 13.3 cm/s [facility] [employer] Work Phone: [phone] Right Segmental Renal Artery PSV 42.1 cm/s [facility] [employer] Work Phone: Right Segmental Renal Artery RI 0.68 [facility] [employer] Work Phone: PT Coag (Bld) [Time]on 05-20 INR Coag (PPP) [Relative time] 1.1 {INR} 0.9 - 1.1 [facility] Comment on above: Recommended Anticoag ulant Therapy: SEE BELOW ----- INR of 2.0 - 3.0 : - Prophylaxis of Venous Thrombosis (high-risk surgery) - Treatment of Venous Thrombosis - Treatment of Pulmonary Embolism (Includes tissue heart valves, Acute Myocardial Infarction to prevent systemic embolism, Valvular Heart Disease, and Atrial Fibrillation) ----- INR of 2.5 - 3.5 : - Mechanical Prosthetic Valves (high risk) - If oral anticoagulant therapy is used to prevent Myocardial Infarction Interpretation and review of laboratory results Normal [facility] Urinalysis complete panel (U )Ordered By: Ailyn Foley on 05-20-2022 Bacteria LM.HPF (Urine sed) [#/Area] Few Abnormal Negative /HPF [facility] Bilirubin Ql (U) Negative Negative mg/dL [facility] Clarity (U) Turbid Abnormal Clear [facility] Color (U) Light [place] Abnormal Lt. Yellow [facility] Epithelial cells.squamous LM.HPF (Urine sed) [#/Area] 0-2 [facility] Glucose Ql (U) Normal Normal (<70) mg/dL [facility] Hemoglobin Ql (U) >1.0 Abnormal Negative mg/dL [facility] Hyaline casts Auto (Urine sed) [#/Area] Negative Negative /LPF [facility] Interpretation and review of laboratory results Abnormal [facility] Ketones (U) [Mass/Vol] Negative Negat silvestre mg/dL [facility] Leukocyte esterase Test strip Ql (U) 75 Abnormal Negative Kelly/uL [facility] Nitrite Ql (U) Negative Negative [facility] pH (U) 5.5 [pH] 5.0 - 8.0 pH [facility] Protein (U) [Mass/Vol] 30 mg/dL Abnormal Negative [facility] RBC LM.HPF (Urine sed) [#/Area] /[HPF] Abnormal [facility] Specific gravity (U) [Rel density] 1.014 1.005 - 1.030 [facility] Urobilinogen (U) [Mass/Vol] Normal Normal (0-1) mg/dL [facility] WBC LM.HPF (Urine sed) [#/Area] 51-100 Abnormal [facility] Yeast.budding LM.HPF (Urine sed) [#/Area] Few Abnormal Negative /HPF [facility] MR/BMS.BVSon 03-13-2022 MR/BMS.BVS [facility] [address] [place], [place] [address] OFFICE VISIT Date of Service: 03/13/22 MR#: [id number] Acct: [id number] Name: LORRI COUGHLIN Rep #: [id number] : 1960 Provider: Dr. Alfonso García MD Age/Sex: 62/M Location: BMS.BVS Status: Signed Intake Vital Signs 12/16/21 12:51 03/13/22 10:39 Height 5 ft 9 in Weight: 172 lb BP 140/75 H Blood Pressure Location Lt brachial Position Sitting Respiration 18 Pulse 72 Pulse Source Monitor Temp 99.1 F Temp Source Temporal Pulse Oximetry (%) 98 Oxygen Delivery Method room air Intake Visit Reasons: AAA Chief Complaint: AAA Is patient in pain?: No Allergies No Known Allergies Allergy (Verified 03/13/22 10:44) Medications aspirin 81 mg tablet,delayed release 81 mg PO DAILY@0800 [facility] [employer] 10/30/21 [History Confirmed 03/13/22] atorvastatin 80 mg tablet 80 mg PO QHS #90 tabs 12/02/21 [Rx Confirmed 03/13/22] clopidogrel 75 mg tablet 75 mg PO DAILY #90 tabs 12/02/21 [Rx Confirmed 03/13/22] [facility] Medical History (Updated 03/13/22 @ 11:[address] 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 Recently diagnosed after pulsatile abdominal mass felt on physical exam prompting CT scan. CTA revealed 6.5 cm AAA. No back or abdominal pain, no prior knowledge of aneurysm, no family history. CAD with prior stent in 2019 after [place], preserved EF. Currently smoker, attempting to cut back/quit. 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 No known COPD. Did suffer prior TIA in 10/2021, slurred/garbled speech dizziness, right arm numbness/tingling which resolved spontaneously; was found to have left ICA occlusion Followed with Dr. Gutierrez from cardiology. ROS General General: No weight change, appetite, fatigue, colon cancer, breast cancer or weakness HEENT HEENT: No difficulty swallowing, eye injury, eye surgery, swollen glands or hoarseness Endo Endocrine: No thyroid disease, diabetes mellitus, thyroid cancer, Hair loss, heat intolerance or cold intolerance Skin Skin: No rash or changing moles Breast Breast: No left breast lump, right breast lump, nipple discharge, breast pain, abnormal mammogram, abnormal US or breast enlargement Musc Musculoskeletal: No back problems, arthritis, rheumatoid arthritis, gout or joint pain Cardio Cardiovascular: Yes heart disease, heart attack and heart stent; No murmur, pacemaker, atrial fibrillation, high blood pressure, palpitations, shortness of breat with exertion or chest pain Psych Psychiatric: Yes anxiety; No depression or hearing voices Resp Respiratory: No shortness of breath, Yes sleep apnea, No cough, No COPD, No asthma, No emphysema and No wheezing Gastro Gastrointestinal: No abdominal pain, No nausea or vomiting, No diarrhea, No constipation, No blood in stool, No acid reflux, No hemorrhoids, No ulcers, No gallbladder problem and No black,tarry stools Glenn Hematologic: Yes blood thinners, No blood disorders, No bleeding, No anemia and No blood clots Additional Details: ASA 81mg and Plavix Neuro Neurologic: No system reviewed and no additional complaints, except as documented, No as per HPI, No abnormal gait, No abnormal hearing, No abnormal movements, No abnormal speech, No behavioral changes, No burning sensations, No confusion, No convulsions, No disequilibrium, No dizziness, No localized weakness, No frequent falls, No headache(s), No lack of coordination, No loss of vision, No memory loss, Yes numbness, No other visual disturbances, No radicular pain, No restless legs, No sensory deficit, No syncope, Yes tingling, No tremor(s), No weakness and Yes other Exam Const General: cooperative, healthy appearing, comfortable, no acute distress and well developed Nutritional Appearance: well nourished Orientation: alert, awake and oriented x3 HENMT Head: normocephalic and atraumatic Ears: hearing grossly normal bilaterally Nose: external n (more content not included)... Normal [facility] Basophil percentageon 2021 Bilirubin [Mass/Vol] 0.30 mg/dL 0.20-1.00 [facility] Work Phone: Comment on above: For patients on eltr ombopag therapy, use of Dimension [place] TBIL is not recommended. Chloride [Moles/Vol] 112 mmol/L 98-107 [facility] Work Phone: Glucose [Mass/Vol] 107 mg/dL 74-106 [facility] Work Phone: Comment on above: Fasting Glucose resu lt from 100 to 125 mg/dL suggests IMPAIRED HOMEOSTASIS per A.D.A. criteria. Potassium [Moles/Vol] 4.0 mmol/L 3.5-5.1 [facility] Work Phone: Protein [Mass/Vol] 7.5 g/dL 6.4-8.2 [facility] Work Phone: Sodium [Moles/Vol] 143 mmol/L 136-145 [facility] Work Phone: Laboratory - Chemistry and C hemistry - challengeon 02-07-2022 ALP [Catalytic activity/Vol] 110 U/L 45-117 [facility] Work Phone: [phone] ALT [Catalytic activity/Vol] 20 U/L 16-61 [facility] Work Phone: [phone] CO2 [Moles/Vol] 26.0 mmol/L 21.0-32.0 [facility] Work Phone: [phone] Globulin (S) [Mass/Vol] 3.5 g/dL 2.2-4.2 [facility] Work Phone: [phone] Urea nitrogen/Creatinine [Mass ratio] 18.8 mg/mg 10-20 [facility] Work Phone: [phone] No Panel Informationon 02-07 Estimated GFR (MDRD) Amer 137 mL/min >60 [facility] Work Phone: Comment on above: GFR Calc Estimated GFR (MDRD) Non-Af Amer 113 mL/min >60 [facility] Work Phone: Comment on above: Non- GFR Calc Prostate Specific Antigen Screen 1.13 ng/mL 0.00-4.00 [facility] Work Phone: Comment on above: This test was perfor med using the TPSA assay method for the[employer] chemistry system. Values obtained with differentassay methods cannot be used interchangably.When changing PSA assays in the course of monitoring apatient, additional sequential testing should be carriedout to confirm baseline values. Vitamin D 25-Hydroxy 25.6 ng/mL [facility] Work Phone: Comment on above: Vitamin D 25(OH) Sta tus Range Deficiency <20 ng/mL (50nmol/L) Insufficiency 20 - 30 ng/mL (50 - 75 nmol/L) Sufficiency 30 - 100 ng/mL (75 - 250 nmol/L) Toxicity >100 ng/mL (>250 nmol/L) Serum or plasma albumin shandra urement (mass/volume)on 02-07-2022 Albumin [Mass/Vol] 4.0 g/dL 3.2-5.0 [facility] Work Phone: Serum or plasma albumin/glob ulin mass ratioon 02-07-2022 Albumin/Globulin [Mass ratio] 1.1 {ratio} 0.9-2.4 [facility] Work Phone: [phone] Serum or plasma calcium shandra urement (mass/volume)on 02-07-2022 Calcium [Mass/Vol] 8.7 mg/dL 8.5-10.1 [facility] Work Phone: [phone] Serum or plasma creatinine m easurement (mass/volume)on 02-07-2022 Creatinine [Mass/Vol] 0.74 mg/dL 0.70-1.30 [facility] Work Phone: Comment on above: The validity of the calculated GFR & GFRAA in patients over 70 years has not been determined. Clinical correlation is essential. Serum or plasma urea nitroge n measurement (mass/volume)on 02-07-2022 Urea nitrogen [Mass/Vol] 14 mg/dL 7-18 [facility] Work Phone: Thin prep Papanicolaou smear with manual screeningon 02-07-2022 Thin prep Papanicolaou smear with manual screening 11 U/L 15-37 [facility] Work Phone: [phone] Thin prep Papanicolaou smear with manual screening 5 5-15 [facility] Work Phone: Absolute lymphocyte counton 10-31-2021 Lymphocytes Auto (Unsp spec) [#/Vol] 1.36 10*3/uL 0.83-4.51 [facility] Work Phone: Basophil percentageon 2021 Basophils/100 WBC (Bld) 0.5 % 0-1 [facility] Work Phone: Chloride [Moles/Vol] 105 mmol/L 98-107 [facility] Work Phone: [phone] Cholesterol [Mass/Vol] 176 mg/dL <200 [facility] Work Phone: [phone] Comment on above: <200 mg/dL Desirable 200-240 mg/dL Borderline >240 mg/dL High Risk Eosinophils/100 WBC (Bld) 2.3 % 0-5 [facility] Work Phone: [phone] Glucose [Mass/Vol] 91 mg/dL 74-106 [facility] Work Phone: [phone] Neutrophils (Bld) [#/Vol] 4.9 10*3/uL 2.0-7.7 [facility] Work Phone: Neutrophils/100 WBC (Bld) 66.6 % 47-70 [facility] Work Phone: [phone] Potassium [Moles/Vol] 3.6 mmol/L 3.5-5.1 [facility] Work Phone: [phone] Sodium [Moles/Vol] 136 mmol/L 136-145 [facility] Work Phone: [phone] Triglyceride [Mass/Vol] 98 mg/dL <199 [facility] Work Phone: Comment on above: The drugs N-Acetylcy steine and Metamizole may falsely depress this assay.Serum Triglycerides Reference Interval Normal <150 mg/dL Borderline high 150 - 199 mg/dL High 200 - 499 mg/dL Very High > or = 500 mg/dL WBC (Bld) [#/Vol] 7.4 10*3/uL 4.4-11.0 [facility] Work Phone: Blood erythrocytes count (nu mber/volume)on 10-31-2021 RBC (Bld) [#/Vol] 4.76 10*6/uL 4.6-6.2 [facility] Work Phone: Blood hemoglobin measurement (mass/volume)on 10-31-2021 Hemoglobin (Bld) [Mass/Vol] 15.0 g/dL 13.0-16.5 [facility] Work Phone: Blood lymphocytes/100 leukoc yteson 10-31-2021 Lymphocytes/100 WBC (Bld) 18.5 % 19-41 [facility] Work Phone: Blood monocytes/100 leukocyt eson 10-31-2021 Monocytes/100 WBC (Bld) 11.8 % 0-10 [facility] Work Phone: [phone] Blood platelet mean volumeon 10-31-2021 Platelet mean volume (Bld) [Entitic vol] 9.8 fL 6.2-12.0 [facility] Work Phone: [phone] Determination of erythrocyte mean corpuscular volume (MCV)on 10-31-2021 MCV (RBC) [Entitic vol] 92.2 fL 80-94 [facility] Work Phone: [phone] Hematocrit Auto (Bld) [Volum e fraction]on 10-31-2021 Hematocrit (Bld) [Volume fraction] 43.9 % 40-54 [facility] Work Phone: Laboratory - Chemistry and C hemistry - challengeon 10-31-2021 CO2 [Moles/Vol] 25.0 mmol/L 21.0-32.0 [facility] Work Phone: [phone] Urea nitrogen/Creatinine [Mass ratio] 17.7 mg/mg 10-20 [facility] Work Phone: [phone] Laboratory - Hematology and Cell countson 10-31-2021 Erythrocyte distribution width (RBC) [Entitic vol] 42.0 fL 35.1-43.9 [facility] Work Phone: [phone] Erythrocyte distribution width (RBC) [Ratio] 12.3 % 11.6-14.6 [facility] Work Phone: [phone] Immature granulocytes/100 WBC (Bld) 0.300 % 0.0-0.9 [facility] Work Phone: [phone] Comment on above: IG% - Immature Granu locytes (promyelocytes, myelocytes and metamyelocytes) > 1% indicates that a LEFT SHIFT is Present. MCH (RBC) [Entitic mass] 31.5 pg 27.0-32.0 [facility] Work Phone: [phone] Nucleated RBC/100 WBC (Bld) [Ratio] 0 % 0-5 [facility] Work Phone: [phone] MCHC Auto (RBC) [Mass/Vol]on 10-31-2021 MCHC (RBC) [Mass/Vol] 34.2 g/dL 32-36 [facility] Work Phone: No Panel Informationon 10-31 Estimated Creatinine Clearance Calc 96.95 ml/min [facility] Work Phone: Estimated GFR (MDRD) Amer 128 mL/min >60 [facility] Work Phone: Comment on above: GFR Calc Estimated GFR (MDRD) Non-Af Amer 106 mL/min >60 [facility] Work Phone: Comment on above: Non- GFR Calc Platelets bldon 10-31-2021 Platelets (Bld) [#/Vol] 232 10*3/uL 150-450 [facility] Work Phone: Serum or plasma calcium shandra urement (mass/volume)on 10-31-2021 Calcium [Mass/Vol] 8.8 mg/dL 8.5-10.1 [facility] Work Phone: Serum or plasma cholesterol in HDL measurement (mass/volume)on 10-31-2021 Cholesterol in HDL [Mass/Vol] 28 mg/dL >40 [facility] Work Phone: Comment on above: The drugs N-Acetylcy steine and Metamizole may falsely depress this assay. Reference Range HDL <40 mg/dL Low HDL Cholesterol HDL >or= 60 mg/dL High HDL Cholesterol Serum or plasma cholesterol in VLDL measurement (mass/volume)on 10-31-2021 Cholesterol in VLDL [Mass/Vol] 20 mg/dL 5-40 [facility] Work Phone: Serum or plasma creatinine m easurement (mass/volume)on 10-31-2021 Creatinine [Mass/Vol] 0.79 mg/dL 0.70-1.30 [facility] Work Phone: Comment on above: The validity of the calculated GFR & GFRAA in patients over 70 years has not been determined. Clinical correlation is essential. Serum or plasma low density lipoprotein (LDL) cholesterol measurement (mass/volume)on 07-07-2022 Cholesterol in LDL [Mass/Vol] 128 mg/dL 0-130 [facility] Work Phone: Serum or plasma urea nitroge n measurement (mass/volume)on 10-31-2021 Urea nitrogen [Mass/Vol] 14 mg/dL 7-18 [facility] Work Phone: Thin prep Papanicolaou smear with manual screeningon 10-31-2021 Thin prep Papanicolaou smear with manual screening 6 5-15 [facility] Work Phone: Absolute lymphocyte counton 10-30-2021 Lymphocytes Auto (Unsp spec) [#/Vol] 2.31 10*3/uL 0.83-4.51 [facility] Work Phone: Basophil percentageon 2021 Basophils/100 WBC (Bld) 0.6 % 0-1 [facility] Work Phone: Chloride [Moles/Vol] 104 mmol/L 98-107 [facility] Work Phone: Eosinophils/100 WBC (Bld) 1.9 % 0-5 [facility] Work Phone: Glucose [Mass/Vol] 88 mg/dL 74-106 [facility] Work Phone: Neutrophils (Bld) [#/Vol] 4.4 10*3/uL 2.0-7.7 [facility] Work Phone: Neutrophils/100 WBC (Bld) 56.0 % 47-70 [facility] Work Phone: Potassium [Moles/Vol] 4.0 mmol/L 3.5-5.1 [facility] Work Phone: Sodium [Moles/Vol] 137 mmol/L 136-145 [facility] Work Phone: WBC (Bld) [#/Vol] 7.9 10*3/uL 4.4-11.0 [facility] Work Phone: Blood erythrocytes count (nu mber/volume)on 07-06-2022 RBC (Bld) [#/Vol] 4.65 10*6/uL 4.6-6.2 [facility] Work Phone: Blood hemoglobin measurement (mass/volume)on 10-30-2021 Hemoglobin (Bld) [Mass/Vol] 14.9 g/dL 13.0-16.5 [facility] Work Phone: Blood lymphocytes/100 leukoc yteson 10-30-2021 Lymphocytes/100 WBC (Bld) 29.2 % 19-41 [facility] Work Phone: Blood monocytes/100 leukocyt eson 10-30-2021 Monocytes/100 WBC (Bld) 11.9 % 0-10 [facility] Work Phone: Blood platelet mean volumeon 10-30-2021 Platelet mean volume (Bld) [Entitic vol] 9.5 fL 6.2-12.0 [facility] Work Phone: Determination of erythrocyte mean corpuscular volume (MCV)on 10-30-2021 MCV (RBC) [Entitic vol] 92.0 fL 80-94 [facility] Work Phone: Hematocrit Auto (Bld) [Volum e fraction]on 10-30-2021 Hematocrit (Bld) [Volume fraction] 42.8 % 40-54 [facility] Work Phone: INR in Blood by Coagulation assayon 10-30-2021 INR Coag (Bld) [Relative time] 1.1 {INR} [facility] Work Phone: Laboratory - Chemistry and C hemistry - challengeon 10-30-2021 CO2 [Moles/Vol] 27.0 mmol/L 21.0-32.0 [facility] Work Phone: [phone] Urea nitrogen/Creatinine [Mass ratio] 12.8 mg/mg 10-20 [facility] Work Phone: Laboratory - Coagulationon 0 10-30-2021 aPTT Coag (Bld) [Time] 28.4 s 24.1-36.2 [facility] Work Phone: [phone] PT Coag (PPP) [Time] 13.6 s 11.7-14.9 [facility] Work Phone: [phone] Laboratory - Hematology and Cell countson 10-30-2021 Erythrocyte distribution width (RBC) [Entitic vol] 42.5 fL 35.1-43.9 [facility] Work Phone: [phone] Erythrocyte distribution width (RBC) [Ratio] 12.6 % 11.6-14.6 [facility] Work Phone: [phone] Immature granulocytes/100 WBC (Bld) 0.400 % 0.0-0.9 [facility] Work Phone: [phone] Comment on above: IG% - Immature Granu locytes (promyelocytes, myelocytes and metamyelocytes) > 1% indicates that a LEFT SHIFT is Present. MCH (RBC) [Entitic mass] 32.0 pg 27.0-32.0 [facility] Work Phone: [phone] Nucleated RBC/100 WBC (Bld) [Ratio] 0 % 0-5 [facility] Work Phone: [phone] MCHC Auto (RBC) [Mass/Vol]on 10-30-2021 MCHC (RBC) [Mass/Vol] 34.8 g/dL 32-36 [facility] Work Phone: [phone] No Panel Informationon 10-30 Estimated Creatinine Clearance Calc 86.16 ml/min [facility] Work Phone: [phone] Estimated GFR (MDRD) Amer 115 mL/min >60 [facility] Work Phone: [phone] Comment on above: GFR Calc Estimated GFR (MDRD) Non-Af Amer 95 mL/min >60 [facility] Work Phone: [phone] Comment on above: Non- GFR Calc Troponin I High Sensitivity 8 pg/mL 3.0-78.0 [facility] Work Phone: [phone] Comment on above: Please Note: New Anel t Units and Gender Specific Reference Ranges. For more information see Policy Stat Procedure [place] High Sensitivity Troponin (TNIH) and attachments. Platelets bldon 10-30-2021 Platelets (Bld) [#/Vol] 219 10*3/uL 150-450 [facility] Work Phone: Serum or plasma calcium shandra urement (mass/volume)on 10-30-2021 Calcium [Mass/Vol] 9.0 mg/dL 8.5-10.[address] [facility] r [facility] Work Phone: Serum or plasma creatinine m easurement (mass/volume)on 10-30-2021 Creatinine [Mass/Vol] 0.86 mg/dL 0.70-1.30 [facility] ster [facility] Work Phone: Comment on above: The validity of the calculated GFR & GFRAA in patients over 70 years has not been determined. Clinical correlation is essential. Serum or plasma urea nitroge n measurement (mass/volume)on 10-30-2021 Urea nitrogen [Mass/Vol] 11 mg/dL 7-18 [facility] Work Phone: Thin prep Papanicolaou smear with manual screeningon 10-30-2021 Thin prep Papanicolaou smear with manual screening 6 5-15 [facility] Work Phone: Vital Signs Date Time Vital Sign Value Performing Clinician Facility 10-03-2024 16:00-0400 Body temperature 97.6 [degF] Dr. Sophie Craft MD Work Phone: [facility] 10-03-2024 16:00-0400 Diastolic blood pressure 73 mm[Hg] Dr. Sophie Craft MD Work Phone: [facility] 10-03-2024 16:00-0400 Heart rate 89 /min Dr. Sophie Craft MD Work Phone: [facility] 10-03-2024 16:00-0400 Respiratory rate 17 /min Dr. Sophie Craft MD Work Phone: [facility] 10-03-2024 16:00-0400 SaO2% (BldA) [Mass fraction] 98 % Dr. Sophie Craft MD Work Phone: [facility] 10-03-2024 16:00-0400 Systolic blood pressure 140 mm[Hg] Dr. Sophie Craft MD Work Phone: [facility] 10-03-2024 15:45-0400 Inhaled oxygen flow rate 4 L/min Dr. Sophie Craft MD Work Phone: [facility] 10-03-2024 13:56-0400 Body height 175.[address] Sophie Craft MD Work Phone: [facility] 10-03-2024 13:56-0400 Body mass index (BMI) [Ratio] 22.8 kg/m2 Dr. Sophie Craft MD Work Phone: [facility] 10-03-2024 13:56-0400 Body weight 70.[address] Sophie Craft MD Work Phone: [facility] 04-30-2023 09:59-0500 Body height 175.[address] Sophie Craft Work Phone: [facility] 04-30-2023 09:59-0500 Body mass index (BMI) [Ratio] 22.6 kg/m2 Dr. Sophie Craft Work Phone: [facility] 04-30-2023 09:59-0500 Body weight 69.[address] Sophie Craft Work Phone: [facility] 04-30-2023 09:59-0500 Diastolic blood pressure 56 mm[Hg] Dr. Sophie Craft Work Phone: [facility] 04-30-2023 09:59-0500 Heart rate 52 /min Dr. Sophie Craft Work Phone: [facility] 04-30-2023 09:59-0500 Respiratory rate 18 /min Dr. Sophie Craft Work Phone: [facility] 04-30-2023 09:59-0500 SaO2% (BldA) [Mass fraction] 99 % Dr. Sophie Craft Work Phone: [facility] 04-30-2023 09:59-0500 Systolic blood pressure 125 mm[Hg] Dr. Sophie Craft Work Phone: [facility] 04-06-2023 14:37-0500 Body height 167.6 cm Isabela Hernandez DIRECTOR MARKET INTELLIGENCE - CONCRETE BLOCK MAKER Work Phone: [facility] [employer] 04-06-2023 14:37-0500 Body mass index (BMI) [Ratio] 23.4 kg/m2 Isabela Hernandez APRN - CONCRETE BLOCK MAKER Work Phone: [facility] 04-06-2023 14:37-0500 Body weight 65.77 kg Isabela Hernandez APRN - [employer]CRETE BLOCK MAKER Work Phone: [facility] 04-06-2023 14:37-0500 Diastolic blood pressure 78 mm[Hg] Isabela Pintoer DIRECTOR MARKET INTELLIGENCE - CONCRETE BLOCK MAKER Work Phone: [facility] [employer] 04-06-2023 14:37-0500 Heart rate 71 /min Isabela Hernandez APRN - [employer]CR[employer]E [employer] Work Phone: [facility] [employer] 04-06-2023 14:37-0500 Systolic blood pressure 134 mm[Hg] Isabela Hernandez APRN - CONCRETE [employer]KER Work Phone: [facility] [employer] 04-02-2023 07:36-0500 Body temperature 98.8 [degF] Alfonso Villarreal MD Work Phone: [facility] [employer] 04-02-2023 07:36-0500 Diastolic blood pressure 68 mm[Hg] Alfonso Villarreal MD Work Phone: [facility] [employer] 04-02-2023 07:36-0500 Heart rate 67 /min Alfonso Villarreal MD Work Phone: [facility] [employer] 04-02-2023 07:36-0500 Respiratory rate 18 /min Alfonso Villarreal MD Work Phone: [facility] [employer] 04-02-2023 07:36-0500 SaO2% (BldA) [Mass fraction] 96 % Alfonso Villarreal MD Work Phone: [facility] [employer] 04-02-2023 07:36-0500 Systolic blood pressure 114 mm[Hg] Alfonso Villarreal MD Work Phone: [facility] [employer] 04-02-2023 06:00-0500 Body mass index (BMI) [Ratio] 22.31 kg/m2 Alfonso Villarreal MD Work Phone: [facility] [employer] 04-02-2023 06:00-0500 Body weight 62.69 kg Alfonso Villarreal MD Work Phone: [facility] [employer] 03-28-2023 04:29-0500 SaO2% (BldA) [Mass fraction] 94.1 % Alfonsoyajaira Villarreal MD Work Phone: [facility] [employer] 03-27-2023 20:59-0500 SaO2% (BldA) [Mass fraction] 92.1 % Alfonsoyajaira Villarreal MD Work Phone: [facility] [employer] 03-26-2023 07:49-0500 Body height 167.6 cm Alfonso Villarreal MD Work Phone: [facility] [employer] 03-25-2023 15:53-0500 SaO2% (BldA) [Mass fraction] 94.5 % Alfonso Villarreal MD Work Phone: [facility] [employer] 03-25-2023 12:27-0500 SaO2% (BldA) [Mass fraction] 95.7 % Alfonso Villarreal MD Work Phone: [facility] [employer] 03-25-2023 11:37-0500 SaO2% (BldA) [Mass fraction] 98.7 % Alfonso Villarreal MD Work Phone: [employer] 02-24-2023 11:02-0400 Body height 167.6 cm Alfonso Villarreal MD Work Phone: [employer] 02-24-2023 11:02-0400 Body mass index (BMI) [Ratio] 23.89 kg/m2 Alfonso Villarreal MD Work Phone: [employer] 02-24-2023 11:02-0400 Body weight 67.13 kg Alfonso Villarreal MD Work Phone: [facility] 02-24-2023 11:02-0400 Diastolic blood pressure 77 mm[Hg] Alfonso Villarreal MD Work Phone: [facility] 02-24-2023 11:02-0400 Heart rate 74 /min Alfonso Villarreal MD Work Phone: [facility] 02-24-2023 11:02-0400 Systolic blood pressure 129 mm[Hg] Alfonso Villarreal MD Work Phone: [facility] 02-16-2023 07:15-0400 Body height 175.[address] Sophie Craft Work Phone: [facility] 02-16-2023 07:15-0400 Body weight 70.[address] Sophie Craft Work Phone: [facility] 02-12-2023 07:48-0400 Body mass index (BMI) [Ratio] 23 kg/m2 Dr. Sophie Craft Work Phone: [facility] 01-23-2023 10:08-0400 Body height 175.[address] Sophie Craft Work Phone: [facility] 01-23-2023 10:08-0400 Body mass index (BMI) [Ratio] 23 kg/m2 Dr. Sophie Craft Work Phone: [facility] 01-23-2023 10:08-0400 Body weight 70.[address] Sophie Craft Work Phone: [facility] 01-23-2023 10:08-0400 Diastolic blood pressure 74 mm[Hg] Dr. Sophie Craft Work Phone: [facility] 01-23-2023 10:08-0400 Heart rate 87 /min Dr. Sophie Craft Work Phone: [facility] 01-23-2023 10:08-0400 Respiratory rate 18 /min Dr. Sophie Craft Work Phone: [facility] 01-23-2023 10:08-0400 SaO2% (BldA) [Mass fraction] 98 % Dr. Sophie Craft Work Phone: [facility] 01-23-2023 10:08-0400 Systolic blood pressure 124 mm[Hg] Dr. Sophie Craft Work Phone: [facility] 01-21-2023 10:40-0400 Body mass index (BMI) [Ratio] 22.5 kg/m2 Dr. Sophie Craft Work Phone: [facility] 01-21-2023 10:40-0400 Body temperature 98.5 [degF] Dr. Sophie Craft Work Phone: [facility] 01-21-2023 10:40-0400 Body weight 69.[address] Sophie Craft Work Phone: [facility] 01-21-2023 10:40-0400 Diastolic blood pressure 73 mm[Hg] Dr. Sophie Craft Work Phone: [facility] 01-21-2023 10:40-0400 Heart rate 82 /min Dr. Sophie Craft Work Phone: [facility] 01-21-2023 10:40-0400 Respiratory rate 16 /min Dr. Sophie Craft Work Phone: [facility] 01-21-2023 10:40-0400 SaO2% (BldA) [Mass fraction] 94 % Dr. Sophie Craft Work Phone: [facility] 01-21-2023 10:40-0400 Systolic blood pressure 152 mm[Hg] Dr. Sophie Craft Work Phone: [facility] 01-10-2023 14:38-0400 Body temperature 98.3 [degF] Dr. Sophie Craft Work Phone: [facility] 01-10-2023 14:38-0400 Diastolic blood pressure 79 mm[Hg] Dr. Sophie Craft Work Phone: [facility] 01-10-2023 14:38-0400 Heart rate 67 /min Dr. Sophie Craft Work Phone: [facility] 01-10-2023 14:38-0400 Respiratory rate 16 /min Dr. Sophie Craft Work Phone: [facility] 01-10-2023 14:38-0400 SaO2% (BldA) [Mass fraction] 99 % Dr. Sophie Craft Work Phone: [facility] 01-10-2023 14:38-0400 Systolic blood pressure 121 mm[Hg] Dr. Sophie Craft Work Phone: [facility] 01-10-2023 05:19-0400 Body mass index (BMI) [Ratio] 19.9 kg/m2 Dr. Sophie Craft Work Phone: [facility] 01-10-2023 05:19-0400 Body weight 61.[address] Sophie Craft Work Phone: [facility] 01-08-2023 10:43-0400 Body height 175.[address] Sophie Craft Work Phone: [facility] 01-07-2023 22:38-0400 Body temperature 98.5 [degF] [facility] 01-07-2023 22:38-0400 Diastolic blood pressure 87 mm[Hg] [facility] 01-07-2023 22:38-0400 Heart rate 93 /min [facility] 01-07-2023 22:38-0400 Respiratory rate 34 /min [facility] 01-07-2023 22:38-0400 Systolic blood pressure 171 mm[Hg] [facility] 01-07-2023 19:18-0400 Body height 175.26 cm [facility] 01-07-2023 19:18-0400 Body mass index (BMI) [Ratio] 22.7 kg/m2 [facility] 01-07-2023 19:18-0400 Body weight 69.88 kg [facility] 01-07-2023 19:18-0400 SaO2% (BldA) [Mass fraction] 98 % [facility] 01-07-2023 18:33-0400 Body temperature 99.61 [degF] Chris Haywood MD Work Phone: [facility] 01-07-2023 18:33-0400 Body weight 70.49 kg Chris Haywood MD Work Phone: [facility] 01-07-2023 18:33-0400 Diastolic blood pressure 126 mm[Hg] Chris Haywood MD Work Phone: [facility] 01-07-2023 18:33-0400 Heart rate 111 /min Chris Haywood MD Work Phone: [facility] 01-07-2023 18:33-0400 Respiratory rate 24 /min Chris Haywood MD Work Phone: [facility] 01-07-2023 18:33-0400 SaO2% (BldA) [Mass fraction] 94 % Chris Haywood MD Work Phone: [facility] 01-07-2023 18:33-0400 Systolic blood pressure 173 mm[Hg] Chris Haywood MD Work Phone: [facility] 01-04-2023 14:18-0400 Diastolic blood pressure 78 mm[Hg] Yen Reynoso DIRECTOR MARKET INTELLIGENCE.[employer]CRETE BLOCK MAKER Work Phone: [facility] 01-04-2023 14:18-0400 Systolic blood pressure 161 mm[Hg] Yen Reynoso DIRECTOR MARKET INTELLIGENCE.[employer]CRETE [employer] MAKER Work Phone: [facility] 01-04-2023 13:43-0400 Body temperature 98.1 [degF] Yen Reynoso DIRECTOR MARKET INTELLIGENCE.CONCRETE BLOCK MAKER Work Phone: [facility] 01-04-2023 13:43-0400 Body weight 68.72 kg Yen Reynoso DIRECTOR MARKET INTELLIGENCE.CONCRETE BLOCK MAKER Work Phone: [facility] 01-04-2023 13:43-0400 Heart rate 72 /min Yen Reynoso DIRECTOR MARK[employer] INTELLIGENCE.CONCRETE [employer] MAKER Work Phone: [facility] 01-04-2023 13:43-0400 Respiratory rate 18 /min Yen Reynoso DIRECTOR MARK[employer] INTELLIGENCE.CONCRETE BLOCK MAKER Work Phone: [facility] 01-04-2023 13:43-0400 SaO2% (BldA) [Mass fraction] 98 % Yen Reynoso DIRECTOR MARK[employer] INTELL[employer].CONCRETE BLOCK MAKER Work Phone: [facility] 07-15-2022 11:43-0400 Diastolic blood pressure 85 mm[Hg] Brenna Wright MD Work Phone: [facility] [employer] 07-15-2022 11:43-0400 Heart rate 82 /min Brenna Wright MD Work Phone: [facility] [employer] 07-15-2022 11:43-0400 Systolic blood pressure 165 mm[Hg] Brenna Wright MD Work Phone: [facility] [employer] 06-04-2022 15:31-0500 Body height 175.3 cm Cesar London MD Work Phone: [facility] [employer] 06-04-2022 15:31-0500 Body mass index (BMI) [Ratio] 24.1 kg/m2 Cesar London MD Work Phone: [facility] [employer] 06-04-2022 15:31-0500 Body weight 74.03 kg Cesar London MD Work Phone: [facility] [employer] 06-04-2022 15:31-0500 Heart rate 92 /min Cesar London MD Work Phone: [facility] [employer] 05-22-2022 15:08-0500 Body temperature 98.49 [degF] Cesar London MD Work Phone: [facility] [employer] 05-22-2022 15:08-0500 Diastolic blood pressure 58 mm[Hg] Cesar London MD Work Phone: [facility] [employer] 05-22-2022 15:08-0500 Heart rate 77 /min Cesar London MD Work Phone: [facility] 05-22-2022 15:08-0500 Respiratory rate 18 /min Cesar London MD Work Phone: [facility] 05-22-2022 15:08-0500 SaO2% (BldA) [Mass fraction] 94 % Cesar London MD Work Phone: [facility] 05-22-2022 15:08-0500 Systolic blood pressure 100 mm[Hg] Cesar London MD Work Phone: [facility] 05-20-2022 06:27-0500 Body height 162.6 cm Cesar London MD Work Phone: [facility] 05-20-2022 06:27-0500 Body mass index (BMI) [Ratio] 29.01 kg/m2 Cesar London MD Work Phone: [facility] 05-20-2022 06:27-0500 Body weight 76.66 kg Cesar London MD Work Phone: [facility] 01-20-2022 08:07-0400 Body temperature 98 [degF] Dr. Sophie Craft Work Phone: [facility] Work Phone: 01-20-2022 08:07-0400 Body weight 78.[address] Sophie Craft Work Phone: [facility] Work Phone: 01-20-2022 08:07-0400 Diastolic blood pressure 70 mm[Hg] Dr. Sophie Craft Work Phone: [facility] Work Phone: 01-20-2022 08:07-0400 Heart rate 76 /min Dr. Sophie Craft Work Phone: [facility] Work Phone: 01-20-2022 08:07-0400 Respiratory rate 16 /min Dr. Sophie Craft Work Phone: [facility] Work Phone: 01-20-2022 08:07-0400 SaO2% (BldA) [Mass fraction] 95 % Dr. Sophie Craft Work Phone: [facility] Work Phone: 01-20-2022 08:07-0400 Systolic blood pressure 118 mm[Hg] Dr. Sophie Craft Work Phone: [facility] Work Phone: 12-16-2021 12:51-0400 Body height 175.[address] Sophie Craft Work Phone: [facility] Work Phone: 12-16-2021 12:51-0400 Body mass index (BMI) [Ratio] 25.6 kg/m2 Dr. Sophie Craft Work Phone: [facility] Work Phone: 12-16-2021 12:51-0400 Body temperature 99 [degF] Dr. Sophie Craft Work Phone: [facility] Work Phone: 12-16-2021 12:51-0400 Body weight 78.[address] Sophie Craft Work Phone: [facility] Work Phone: 12-16-2021 12:51-0400 Diastolic blood pressure 70 mm[Hg] Dr. Sophie Craft Work Phone: [facility] Work Phone: 12-16-2021 12:51-0400 Heart rate 72 /min Dr. Sophie Craft Work Phone: [facility] Work Phone: 12-16-2021 12:51-0400 Respiratory rate 16 /min Dr. Sophie Craft Work Phone: [facility] Work Phone: 12-16-2021 12:51-0400 SaO2% (BldA) [Mass fraction] 98 % Dr. Sophie Craft Work Phone: [facility] Work Phone: 12-16-2021 12:51-0400 Systolic blood pressure 126 mm[Hg] Dr. Sophie Craft Work Phone: [facility] Work Phone: 12-04-2021 15:01-0400 Body mass index (BMI) [Ratio] 25.1 kg/m2 Dr. Sophie Craft Work Phone: [facility] Work Phone: 12-04-2021 15:01-0400 Body temperature 97.4 [degF] Dr. Sophie Craft Work Phone: [facility] Work Phone: 12-04-2021 15:01-0400 Body weight 77.[address] Sophie Craft Work Phone: [facility] Work Phone: 12-04-2021 15:01-0400 Diastolic blood pressure 67 mm[Hg] Dr. Sophie Craft Work Phone: [facility] Work Phone: 12-04-2021 15:01-0400 Heart rate 68 /min Dr. Sophie Craft Work Phone: [facility] Work Phone: 12-04-2021 15:01-0400 Respiratory rate 16 /min Dr. Sophie Craft Work Phone: [facility] Work Phone: 12-04-2021 15:01-0400 SaO2% (BldA) [Mass fraction] 96 % Dr. Sophie Craft Work Phone: [facility] Work Phone: 12-04-2021 15:01-0400 Systolic blood pressure 112 mm[Hg] Dr. Sophie Craft Work Phone: [facility] Work Phone: 11-13-2021 08:07-0400 Body mass index (BMI) [Ratio] 25 kg/m2 Dr. Sophie Craft Work Phone: [facility] Work Phone: 11-13-2021 08:07-0400 Body temperature 97.8 [degF] Dr. Sophie Craft Work Phone: [facility] Work Phone: 11-13-2021 08:07-0400 Body weight 76.[address] Sophie Craft Work Phone: [facility] Work Phone: 11-13-2021 08:07-0400 Diastolic blood pressure 74 mm[Hg] Dr. Sophie Craft Work Phone: [facility] Work Phone: 11-13-2021 08:07-0400 Heart rate 68 /min Dr. Sophie Craft Work Phone: [facility] Work Phone: 11-13-2021 08:07-0400 Respiratory rate 16 /min Dr. Sophie Craft Work Phone: [facility] Work Phone: 11-13-2021 08:07-0400 SaO2% (BldA) [Mass fraction] 98 % Dr. Sophie Craft Work Phone: [facility] Work Phone: 11-13-2021 08:07-0400 Systolic blood pressure 136 mm[Hg] Dr. Sophie Craft Work Phone: [facility] Work Phone: 10-31-2021 16:40-0400 Body mass index (BMI) [Ratio] 23.8 kg/m2 Dr. Sophie Craft Work Phone: [facility] Work Phone: 10-31-2021 16:00-0400 Body temperature 98 [degF] Dr. Sophie Craft Work Phone: [facility] Work Phone: 10-31-2021 16:00-0400 Diastolic blood pressure 68 mm[Hg] Dr. Sophie Craft Work Phone: [facility] Work Phone: 10-31-2021 16:00-0400 Heart rate 69 /min Dr. Sophie Craft Work Phone: [facility] Work Phone: 10-31-2021 16:00-0400 Respiratory rate 17 /min Dr. Sophie Craft Work Phone: [facility] Work Phone: 10-31-2021 16:00-0400 SaO2% (BldA) [Mass fraction] 97 % Dr. Sophie Craft Work Phone: [facility] Work Phone: 10-31-2021 16:00-0400 Systolic blood pressure 106 mm[Hg] Dr. Sophie Craft Work Phone: [facility] Work Phone: 10-30-2021 16:07-0400 Body height 175.[address] Sophie Craft Work Phone: [facility] Work Phone: 10-30-2021 16:07-0400 Body weight 73.[address] Sophie Craft Work Phone: [facility] Work Phone: 10-30-2021 14:06-0400 Diastolic blood pressure 78 mm[Hg] [facility] Work Phone: 10-30-2021 14:06-0400 Heart rate 72 /min [facility] Work Phone: 10-30-2021 14:06-0400 Respiratory rate 22 /min [facility] Work Phone: 10-30-2021 14:06-0400 SaO2% (BldA) [Mass fraction] 97 % [facility] Work Phone: 10-30-2021 14:06-0400 Systolic blood pressure 120 mm[Hg] [facility] Work Phone: 10-30-2021 12:07-0400 Body height 172.72 cm [facility] Work Phone: 10-30-2021 12:07-0400 Body mass index (BMI) [Ratio] 26.6 kg/m2 [facility] Work Phone: 10-30-2021 12:07-0400 Body temperature 97.7 [degF] [facility] Work Phone: 10-30-2021 12:07-0400 Body weight 79.37 kg [facility] Work Phone: Encounters Encounter Date Encounter Type Care Provider Facility Start: 10-03-2024 End: 10-03-2024 Emergency department patient visit Dr. Sophie Craft MD Work Phone: -Emergency Department Work Phone: Start: 08-14-2023 Telephone encounter Alfonso sears MD Work Phone: [facility] Scheduling Comment on above: Scheduling Start: 05-19-2023 End: 05-20-2023 ambulatory [facility] Start: 05-19-2023 End: 05-19-2023 Subsequent hospital visit by physician Cesar Del Rosario DO Work Phone: [facility] Card Pulm Rehab Comment on above: S/P CABG (coronary a rtery bypass graft) Start: 05-06-2023 Telephone encounter Priscila Wahl DIRECTOR MARKET INTELLIGENCE - [employer]CRETE [employer] MAKER Work Phone: [facility] Start: 04-30-2023 Non-patient / Non-visit Dr. Claudia Craft Work Phone: [facility] Start: 04-30-2023 End: 04-30-[address] Sophie Craft Work Phone: [facility] Work Phone: Start: 04-30-2023 End: 04-30-[address] Sophie Craft Work Phone: [facility] Work Phone: Start: 04-23-2023 End: 04-23-2023 ambulatory ISABELA [facility] Start: 04-23-2023 End: 04-23-2023 Postop follow up visit related to original px Isabela Hernandez DIRECTOR MARKET INTELLIGENCE - [employer]CRETE [employer] MAKER Work Phone: [facility] Cardiovascular [facility] Thoracic Surgery Comment on above: CAD in [place] artery (Primary Dx); S/P CABG (coronary artery bypass graft) Start: 04-15-2023 Telephone encounter Isabela Cordoba DIRECTOR MARKET INTELLIGENCE - [employer]CRETE [employer] MAKER Work Phone: [facility] Start: 04-15-2023 End: 04-15-2023 Postop follow up visit related to original px Isabela Hernandez DIRECTOR MARKET INTELLIGENCE - [employer]CR[employer]E [employer]KER Work Phone: [facility] Comment on above: CAD in [place] artery (Primary Dx) Start: 04-15-2023 End: 04-16-2023 ambulatory ISABELA [facility] Start: 04-06-2023 End: 04-06-2023 ambulatory ISABELA [facility] Start: 04-06-2023 End: 04-06-2023 Postop follow up visit related to original px Isabela Hernandez DIRECTOR MARK[employer] INTELLIGENCE - [employer]CR[employer]E [employer]KER Work Phone: [facility] Comment on above: CAD in [place] artery (Primary Dx) Start: 03-25-2023 End: 04-02-2023 Evaluation and management of inpatient Yovani Leobardo ALVAREZ Work Phone: [facility] MAIN OR Start: 03-25-2023 End: 04-02-2023 Evaluation and management of inpatient Alfonso Villarreal MD Work Phone: [facility] Cardiac Thoracic Vascular Intensive Care Unit CTV ICU T1 Start: 03-20-2023 End: 03-21-2023 ambulatory DANAE GTZ [facility] Start: 03-20-2023 End: 03-20-2023 Encounter for other preprocedural examination ALFONSO [facility] Start: 03-20-2023 End: 03-20-2023 Subsequent hospital visit by physician Catina Xr Exam Room 1 [facility] X-Ray Comment on above: Arrived Start: 03-16-2023 End: 03-16-2023 ambulatory SOPHIE CRAFT [facility] Start: 03-10-2023 End: 03-11-2023 ambulatory ALFONSO [facility] Start: 03-10-2023 End: 03-10-2023 Subsequent hospital visit by physician Alfonso Villarreal MD Work Phone: [facility] Vascular Lab Comment on above: Bruit (arterial) Infrarenal 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 (HCC); Paroxysmal atrial fibrillation (HCC) Start: 02-25-2023 Admission to [facility] Deon Langston DIRECTOR MARKET INTELLIGENCE - CONCRETE BLOCK MAKER Work Phone: [facility] Surgery Comment on above: CAD in [place] artery (Primary Dx) Start: 02-25-2023 ambulatory Deon benitez DIRECTOR MARKET INTELLIGENCE - CONCRETE BLOCK MAKER Work Phone: [facility] Start: 02-25-2023 Telephone encounter Alfonso sears MD Work Phone: [facility] Comment on above: Surgery Scheduling Start: 02-24-2023 End: 02-24-[address] [facility] Start: 02-24-2023 End: 02-24-2023 Office outpatient new 60 minutes Alfonso Villarreal MD Work Phone: [facility]acic [facility] Comment on above: Coronary artery dise ase involving [place] heart, unspecified vessel or lesion type, unspecified whether angina present (Primary Dx); Paroxysmal atrial fibrillation (HCC) Start: 02-16-[address] [facility] Facility:[facility] Start: 02-16-2023 Non-patient / Non-visit Dr. Claudia Craft Work Phone: [facility] Start: 02-16-2023 End: 02-16-[address] [facility] Facility:[facility] Start: 02-16-2023 End: 02-16-2023 Admission to same day surgery center Dr. Sophie Craft Work Phone: [facility]-Agricultural Produce Sorter/Special Procedures Work Phone: Start: 02-16-2023 End: 02-16-[address] Sophie Craft Work Phone: [facility] Work Phone: Start: 01-23-2023 End: 01-23-2023 ambulatory Sophie Craft Facility:[facility] Start: 01-23-2023 End: 01-23-[address] Sophie Craft Work Phone: [facility]-Laboratory Work Phone: Start: 01-21-2023 End: 01-21-[address] Sophie Craft Work Phone: [facility] Work Phone: Start: 01-21-2023 End: 01-21-[address] Sophie Craft Work Phone: [facility]-Radiology, [facility] Work Phone: Start: 01-21-2023 End: 01-21-[address] Sophie Craft Work Phone: [facility] Work Phone: Start: 01-09-2023 Non-patient / Non-visit Dr. Claudia Craft Work Phone: [facility] [facility] Work Phone: Start: 01-08-2023 ambulatory Sophie Craft [facility] Start: 01-08-2023 Non-patient / Non-visit Dr. Claudia Craft Work Phone: [facility] Start: 01-07-2023 ambulatory Sophie Craft Facility [facility] Start: 01-07-2023 End: 01-10-2023 Evaluation and management of inpatient Sophie [facility] Facility:[facility] Start: 01-07-2023 End: 01-10-2023 Evaluation and management of inpatient [facility]Progressive Care Unit Work Phone: Start: 01-07-2023 End: 01-07-2023 ambulatory Facility:[facility] Start: 01-07-2023 End: 01-07-2023 Patient encounter procedure Chris Haywood MD Work Phone: [facility] Comment on above: Subacute cough (Prim idania Dx); Hemoptysis; SOB (shortness of breath); Chest pain on breathing; Elevated blood pressure reading without diagnosis of hypertension; History of aortic aneurysm Start: 01-04-2023 End: 01-04-2023 ambulatory Facility:[facility] Start: 01-04-2023 End: 01-04-2023 Patient encounter procedure Yen Reynoso APRN.CNP Work Phone: [facility] Comment on above: Lower respiratory in fection (Primary Dx); Subacute cough; SOB (shortness of breath); Elevated blood pressure reading without diagnosis of hypertension Start: 09-11-2022 End: 09-11-2022 ambulatory BRENNA WRIGHT [facility] Start: 08-27-2022 Telephone encounter Brenna santana MD Work Phone: [facility] U[facility] Comment on above: Other Start: 08-18-2022 End: 08-18-2022 Subsequent hospital visit by physician Brenna Wright MD Work Phone: [facility] Comment on above: No Show Start: 08-18-2022 End: 08-19-2022 ambulatory BRENNABETZAIDA WRIGHT [facility] Start: 08-18-2022 Telephone encounter Martha Dill GEOGRAPHIC INFORMATION SYSTEMS MANAGER Work Phone: [facility] Urology Comment on above: Results (CX Bladder) Start: 08-15-2022 End: 08-21-2022 ambulatory BRENNA NETAZYEN [facility] Start: 08-05-2022 Telephone encounter Brenna santana MD Work Phone: [facility] Urology Comment on above: Other (Imaging peña e of location) Start: 07-15-2022 End: 07-15-2022 Office outpatient visit 25 minutes Brenna Wright MD Work Phone: [facility] Urology Comment on above: Gross hematuria (Annie leo Dx); Renal lesion Start: 06-12-2022 Orders Only Cesar her MD Work Phone: [employer] 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) Start: 06-11-2022 Telephone encounter Cesar Rodriguez MD Work Phone: [employer] Start: 06-11-2022 End: 06-11-2022 Subsequent hospital visit by physician Cesar London MD Work Phone: [facility] [address] V[facility] Lab Comment on above: Juxtarenal 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 Start: 06-04-2022 End: 06-04-2022 Postop follow up visit related to original px Cesar London MD Work Phone: [employer] 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) Start: 05-30-2022 Telephone encounter Martha Dill GEOGRAPHIC INFORMATION SYSTEMS MANAGER Work Phone: [facility]rology [employer] Comment on above: Results Start: 05-20-2022 End: 05-22-2022 Evaluation and management of inpatient [facility] X-Ray Comment on above: Arrived Infrarenal 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 (Primary Dx); Juxtarenal 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; Postoperative pain Start: 05-13-2022 Telephone encounter Trudy Lucas DIRECTOR MARKET INTELLIGENCE - CONCRETE BLOCK MAKER Work Phone: [facility] Start: 03-13-2022 End: 03-13-2022 ambulatory Sophie Craft Facility:[facility] Start: 03-06-2022 ambulatory Sophie Craft Facility :[facility] Start: 02-19-2022 End: 02-19-[address] Sophie Craft Work Phone: [facility] Work Phone: Start: 02-19-2022 End: 02-19-[address] Sophie Craft Work Phone: [facility] Start: 02-07-2022 End: 02-07-[address] Sophie Craft Work Phone: [facility] Work Phone: Start: 02-07-2022 End: 02-07-[address] Sophie Craft Work Phone: [facility] Start: 01-20-2022 End: 01-20-[address] Sophie Craft Work Phone: [facility] Start: 12-16-2021 End: 12-16-[address] Sophie Craft Work Phone: [facility] Start: 12-04-2021 End: 12-04-[address] Sophie Craft Work Phone: [facility] Start: 11-13-2021 End: 11-13-[address] Sophie Craft Work Phone: [facility] Start: 10-31-2021 Non-patient / Non-visit Dr. Claudia Craft Work Phone: [facility] Inpatient Physicians Start: 10-30-2021 End: 10-31-2021 Evaluation and management of inpatient Dr. Sophie Craft Work Phone: [facility] Care Unit Start: 10-30-2021 Non-patient / Non-visit Dr. Claudia Craft Work Phone: [facility] Inpatient Physicians Start: 10-30-2021 Non-patient / Non-visit Dr. Claudia Craft Work Phone: [facility] Start: 10-30-2021 Evaluation and management of inpatient [facility] Unit Procedures Date Procedure Procedure Detail Performing Clinician Start: 10-03-2024 Computed tomography of thoracic spine without contrast Dr. Sophie Craft MD Work Phone: Start: 10-03-2024 CT cervical spine wi thout contrast Dr. Sophie Craft MD Work Phone: Start: 10-03-2024 CT of head without contrast Dr. Sophie Craft MD Work Phone: Start: 10-03-2024 CT of lumbar spine Dr. Sophie Craft MD Work Phone: Start: 10-03-2024 CT of thorax, abdome n and pelvis with contrast Dr. Sophie Craft MD Work Phone: Start: 10-03-2024 Plain X-ray of shoulder Dr. Sophie Craft MD Work Phone: Start: 10-03-[address] Sophie Craft MD Work Phone: Start: 04-21-2023 History of coronary artery bypass grafting S/P CABG (coronary artery bypass graft) Isabela Hernandez DIRECTOR MARKET INTELLIGENCE - CONCRETE BLOCK MAKER Work Phone: Start: 04-02-2023 Basic metabolic pane l calcium total Priscila Wahl DIRECTOR MARKET INTELLIGENCE - CONCRETE BLOCK MAKER Work Phone: Start: 04-01-2023 Radiologic exam ches t single view Priscila Wahl DIRECTOR MARKET INTELLIGENCE - CONCRETE BLOCK MAKER Work Phone: Start: 04-01-2023 Basic metabolic pane l calcium total Priscila Wahl DIRECTOR MARKET INTELLIGENCE - CONCRETE BLOCK MAKER Work Phone: Start: 03-31-2023 Basic metabolic pane l calcium total Priscila Wahl DIRECTOR MARKET INTELLIGENCE - CONCRETE BLOCK MAKER Work Phone: Start: 03-31-2023 Radiologic exam ches t single view Priscila Wahl DIRECTOR MARKET INTELLIGENCE - CONCRETE BLOCK MAKER Work Phone: Start: 03-30-2023 Thoracentesis needle /cath pleura w/imaging Priscila Wahl DIRECTOR MARKET INTELLIGENCE - CONCRETE BLOCK MAKER Work Phone: Start: 03-30-2023 Radiologic exam ches t single view Priscila Wahl DIRECTOR MARKET INTELLIGENCE - CONCRETE BLOCK MAKER Work Phone: Start: 03-30-2023 Basic metabolic pane l calcium total Priscila Wahl DIRECTOR MARKET INTELLIGENCE - CONCRETE BLOCK MAKER Work Phone: Start: 03-29-2023 Radiologic exam ches t single view Priscila Wahl DIRECTOR MARKET INTELLIGENCE - CONCRETE BLOCK MAKER Work Phone: Start: 03-29-2023 Compatibility each u nit electronic Alfonso Villarreal MD Work Phone: Start: 03-29-2023 Basic metabolic pane l calcium total Priscila Wahl DIRECTOR MARKET INTELLIGENCE - CONCRETE BLOCK MAKER Work Phone: Start: 03-28-2023 Basic metabolic pane l calcium total Priscila Wahl DIRECTOR MARKET INTELLIGENCE - CONCRETE BLOCK MAKER Work Phone: Start: 03-28-2023 Radiologic exam ches t single view Priscila Wahl DIRECTOR MARKET INTELLIGENCE - CONCRETE BLOCK MAKER Work Phone: Start: 03-28-2023 Blood gases any comb ination ph pco2 po2 co2 hco3 Chidilaxmi Valerio MD Work Phone: Start: 03-28-2023 End: 03-28-2023 Comprehensive metabolic panel Priscila Wahl APRN - CONCRETE BLOCK MAKER Work Phone: Start: 03-27-2023 Ecg routine ecg w/le ast 12 lds trcg only w/o i&r Alfonso Villarreal MD Work Phone: Start: 03-27-2023 Basic metabolic pane l calcium total Alfonso Villarreal MD Work Phone: Start: 03-27-2023 Blood gases any comb ination ph pco2 po2 co2 hco3 Chidi Valerio MD Work Phone: Start: 03-27-2023 Radiologic exam abdo men 1 view Chidi Valerio MD Work Phone: Start: 03-27-2023 Glucose quantitative blood xcpt reagent strip Alfonso Villarreal MD Work Phone: Start: 03-27-2023 End: 03-27-2023 Basic metabolic panel calcium total Priscila Wahl APRN - CONCRETE BLOCK MAKER Work Phone: Start: 03-27-2023 Glucose quantitative blood xcpt reagent strip Alfonso Villarreal MD Work Phone: Start: 03-27-2023 End: 03-27-2023 TRANSFUSE RED BLOOD CELLS Isabela Dill CNP Work Phone: Start: 03-27-2023 Radiologic exam ches t single view Priscila Wahl APRN - CONCRETE BLOCK MAKER Work Phone: Start: 03-27-2023 Compatibility each u nit electronic Chidi Valerio MD Work Phone: Start: 03-27-2023 End: 03-27-2023 TRANSFUSE RED BLOOD CELLS Chidi Valerio MD Work Phone: Start: 03-27-2023 Calcium ionized Mary Ellen garcia Wendie Wahl APRN - CONCRETE BLOCK MAKER Work Phone: Start: 03-27-2023 Thyrotropin [Units/v olume] in Serum or Plasma Isabela Dill CNP Work Phone: Start: 03-27-2023 Comprehensive metabo lic panel Priscila Pressley Tasha DIRECTOR MARKET INTELLIGENCE - CONCRETE BLOCK MAKER Work Phone: Start: 03-26-2023 Glucose quantitative blood xcpt reagent strip Alfonso Villarreal MD Work Phone: Start: 03-26-2023 Radiologic exam abdo men 1 view Priscila Wendie Wahl DIRECTOR MARKET INTELLIGENCE - CONCRETE BLOCK MAKER Work Phone: Start: 03-26-2023 End: 03-26-2023 Basic metabolic panel calcium total Priscila Wendie Wahl DIRECTOR MARKET INTELLIGENCE - CONCRETE BLOCK MAKER Work Phone: Start: 03-26-2023 Glucose quantitative blood xcpt reagent strip Alfonso Villarreal MD Work Phone: Start: 03-26-2023 Glucose quantitative blood xcpt reagent strip Alfonso Villarreal MD Work Phone: Start: 03-26-2023 End: 03-26-2023 Calcium ionized Priscila Pressley Tasha DIRECTOR MARKET INTELLIGENCE - CONCRETE BLOCK MAKER Work Phone: Start: 03-26-2023 Radiologic exam ches t single view Priscila Wendie Wahl DIRECTOR MARKET INTELLIGENCE - CONCRETE BLOCK MAKER Work Phone: Start: 03-26-2023 Ecg routine ecg w/le ast 12 lds trcg only w/o i&r Priscila Wendie Wahl DIRECTOR MARKET INTELLIGENCE - CONCRETE BLOCK MAKER Work Phone: Start: 03-26-2023 End: 03-26-2023 Comprehensive metabolic panel Priscila Wendie Wahl DIRECTOR MARKET INTELLIGENCE - CONCRETE BLOCK MAKER Work Phone: Start: 03-26-2023 Glucose quantitative blood xcpt reagent strip Alfonso Villarreal MD Work Phone: Start: 03-26-2023 End: 03-26-2023 Glucose quantitative blood xcpt reagent strip Alfonso Villarreal MD Work Phone: Start: 03-25-2023 Glucose quantitative blood xcpt reagent strip Alfonso Villarreal MD Work Phone: Start: 03-25-2023 Glucose quantitative blood xcpt reagent strip Alfonso Villarreal MD Work Phone: Start: 03-25-2023 End: 03-25-2023 Glucose quantitative blood xcpt reagent strip Alfonso Villarreal MD Work Phone: Start: 03-25-2023 End: 03-25-2023 Glucose quantitative blood xcpt reagent strip Alfonso Villarreal MD Work Phone: Start: 03-25-2023 End: 03-25-2023 Glucose quantitative blood xcpt reagent strip Alfonso Villarreal MD Work Phone: Start: 03-25-2023 Blood gases any comb ination ph pco2 po2 co2 hco3 Mikhail Casillas MD Work Phone: Start: 03-25-2023 Glucose quantitative blood xcpt reagent strip Alfonso Villarreal MD Work Phone: Start: 03-25-2023 EXTUBATION Mikhail Benitez MD Work Phone: Start: 03-25-2023 End: 03-25-2023 Glucose quantitative blood xcpt reagent strip Alfonso Villarreal MD Work Phone: Start: 03-25-2023 Blood gases any comb ination ph pco2 po2 co2 hco3 Mikhail Casillas MD Work Phone: Start: 03-25-2023 Radiologic exam ches t single view Priscila Wahl APRN - CONCRETE BLOCK MAKER Work Phone: Start: 03-25-2023 Ecg routine ecg w/le ast 12 lds trcg only w/o i&r Priscila Wahl APRN - CONCRETE BLOCK MAKER Work Phone: Start: 03-25-2023 Echo transesophag r- t 2d w/prb img acquisj i&r Alfonso Villarreal MD Work Phone: Start: 03-25-2023 End: 03-25-2023 Basic metabolic panel calcium total Alfonso Villarreal MD Work Phone: Start: 03-25-2023 Blood gases any comb ination ph pco2 po2 co2 hco3 Alfonso Villarreal MD Work Phone: Start: 03-25-2023 Insertion flow direc claudia catheter for monitoring Peyton RauschBernardo DIRECTOR MARKET INTELLIGENCE - WEARING APPAREL SHAKER Work Phone: Start: 03-25-2023 SD AN CENTRAL LINE D OUBLE LUMEN Peyton RauschBernardo DIRECTOR MARKET INTELLIGENCE - WEARING APPAREL SHAKER Work Phone: Start: 03-25-2023 Us vasc access sits vsl patency ndl entry Peyton RauschBernardo DIRECTOR MARKET INTELLIGENCE - WEARING APPAREL SHAKER Work Phone: Start: 03-25-2023 SD AN ELECTIVE ENDOT MEDINA AIRWAY Peyton Eng JoslynSumitBernardo DIRECTOR MARKET INTELLIGENCE - WEARING APPAREL SHAKER Work Phone: Start: 03-25-2023 ANESTHESIA ARTERIAL LINE PLACEMENT Julien Rose DIRECTOR MARKET INTELLIGENCE - WEARING APPAREL SHAKER Start: 03-25-2023 End: 03-25-2023 Cabg w/arterial graft three arterial grafts Alfonso Villarreal MD Work Phone: Start: 03-25-2023 End: 03-25-2023 Echo transesophag r-t 2d w/prb img acquisj i&r Alfonso Villarreal MD Work Phone: Start: 03-20-2023 Antibody screen ALFONSO TROY VAIBHAV Comment on above: Performed By: #### L AB15 #### Latin American Studies Professor: SUZIE COOK ([id number]) [address] Start: 03-20-2023 Radiologic exam ches t 2 views Danae Gtz GEOGRAPHIC INFORMATION SYSTEMS MANAGER Work Phone: Start: 03-10-2023 Non-invasive physiol ogic study extremity 3 levls Alfonso Villarreal MD Work Phone: Start: 03-10-2023 Duplex scan extracra nial art compl bi study Alfonso Villarreal MD Work Phone: Start: 01-21-2023 Plain chest X-ray Dr. Akash Craft Work Phone: Start: 01-07-2023 Plain chest X-ray Start: 06-11-2022 Dup-scan aorta ivc i liac vascl/bpgs complete Cesar London MD Work Phone: Start: 05-22-2022 Blood count hematocrit Karlo Donis MD Work Phone: Start: 05-22-2022 Basic metabolic pane l calcium total Nevaeh Anton MD Work Phone: Start: 05-20-2022 Platelets, pheresis Ant danuta Hope MD Work Phone: Start: 05-20-2022 End: 05-20-2022 TRANSFUSE PLATELETS Hua Hope MD Work Phone: Start: 05-20-2022 End: 05-21-2022 EXPLORATION FEMORAL ARTERY Yaima zapata MD Work Phone: Start: 05-20-2022 End: 05-20-2022 TRANSFUSE PLATELETS Hua Hope MD Work Phone: Start: 05-20-2022 Basic metabolic pane l calcium total Hua Hope MD Work Phone: Start: 05-20-2022 Ct abdomen & pelvis w/o contrast material Hua Hope MD Work Phone: Start: 05-20-2022 Culture bacterial quanttative colony count urine Nevaeh Anton MD Work Phone: Start: 05-20-2022 Urinalysis complete panel - Urine Nevaeh Anton MD Work Phone: Start: 05-20-2022 Dup-scan artl grupo abdl/pel/scrot&/rpr orgn com Cesar London MD Work Phone: Start: 05-20-2022 Basic metabolic pane l calcium total Cesar London MD Work Phone: Start: 05-20-2022 FL GUIDANCE OR USE O NLY - NON-RESULTABLE Cesar London MD Work Phone: Start: 05-20-2022 End: 05-20-2022 Viscer and infrarenal abdom aorta 2 prosthesis Cesar London MD Work Phone: Start: 02-19-2022 Computed tomography angiography of abdominal and/or pelvic blood vessel Dr. Sophie Craft Work Phone: Start: 02-07-[address] Sophie Craft Work Phone: Start: 10-30-2021 MRI of brain without contrast Dr. Sophie Craft Work Phone: Start: 10-30-2021 Plain chest X-ray Start: 10-30-2021 CT of head without contrast Start: 03-22-2020 History of placement of stent for coronary artery disease History of coronary artery stent placement Comment on above: [id number] RCA w/ 3.5 x 24 mm and 3.5 x 12 mm Synergy Stents 03/22/2020 History of coronary artery bypass grafting S/P CABG (coronary artery bypass graft) Isabela Hernandez DIRECTOR MARKET INTELLIGENCE [email or web address] Work Phone: History of coronary artery bypass grafting S/P coronary artery bypass graft x 4 Dr. Sophie Craft Work Phone: Comment on above: 03/25/2023: Coronary revascularization x 4: Left internal mammary artery grafted to the left anterior descending coronary artery, reverse saphenous vein graft graft to the first diagonal coronary artery, reverse saphenous vein graft graft to the first obtuse marginal coronary artery, reverse saphenous vein graft grafted to the posterior descending coronary artery. History of coronary artery bypass grafting S/P CABG (coronary artery bypass graft) Priscila Wahl DIRECTOR MARKET INTELLIGENCE - CONCRETE BLOCK MAKER Work Phone: History of coronary artery bypass grafting S/P CABG (coronary artery bypass graft) Cesar Del Rosario DO Work Phone: Plan of Treatment Date Care Activity Detail Author Start: 04-02-2024 Creatinine measurement [facility] [employer] Start: 04-02-2024 Potassium measurement [facility] [employer] Start: 03-27-2024 Thyroid stimulating hormone measurement [employer] Start: 03-25-2024 Creatinine measurement Creatinine Level [employer] Start: 03-25-2024 Echocardiography Echocardiogram [employer] Start: 03-25-2024 Potassium measurement Potassium Level [employer] Start: 03-25-2024 [facility] Start: 03-20-2024 Creatinine measurement Creatinine Level [facility] Start: 03-20-2024 Diabetes mellitus screening [facility] Start: 03-20-2024 Potassium measurement Potassium Level [facility] Start: 12-27-2023 Influenza vaccination Influenza Vaccine (Season Ended) [facility] Start: 08-15-2023 Creatinine measurement Creatinine Level [facility] Start: 08-15-2023 Potassium measurement Potassium Level [facility] Start: 05-19-2023 End: 05-19-2023 Patient encounter procedure 05/19/2023 8:15 AM EST Appointment [facility] [address] [place] [address] Cesar Del Rosario DO [address] [place] [address] [facility] Start: 04-30-2023 Patient referral [facility] Work Phone: Start: 04-15-2023 End: 04-15-2023 Telemedicine consultation with patient 04/15/2023 12:30 PM EST Telemedicine [facility] [address] [place] [phone] Isabela Hernandez APRN - CONCRETE BLOCK MAKER [address] [place] [address] [facility] Start: 04-06-2023 End: 04-06-2023 ambulatory [facility] Start: 03-25-2023 End: 03-25-2023 Admission to same day surgery center 03/25/2023 7:00 AM EST - 03/25/2023 12:00 PM EST Surgery [facility] MAIN OR [address] [place] [phone] Alfonso Villarreal MD [address] [place] [address] CABG, WITH ATRIAL ABLATION AND CLIP, TRANSESOPHAGEAL ECHOCARDIOGRAM [47541 (CPT )] [facility] Comment on above: CABG, WITH ATRIAL ABLATION AND CLIP, TRA NSESOPHAGEAL ECHOCARDIOGRAM [90331 (CPT )] Start: 03-25-2023 End: 03-25-2023 Anesthesia consultation 03/25/2023 7:00 AM EST Anesthesia Event [facility] [address] [place] [phone] Danae Gtz, GEOGRAPHIC INFORMATION SYSTEMS MANAGER [address] [place] [address] [facility] Start: 03-25-2023 End: 03-25-2023 Cabg w/arterial graft three arterial grafts CABG X3 ARTERIAL GRAFTS Atherosclerotic heart disease of [place] coronary artery without angina pectoris Unspecified atrial fibrillation (HCC) 03/25/2023 7:00 AM EST [facility] Operating Room Start: 03-25-2023 End: 03-25-2023 Echo transesophag r-t 2d w/prb img acquisj i&r Echocardiography transesophageal real-time Atherosclerotic heart disease of [place] coronary artery without angina pectoris Unspecified atrial fibrillation (HCC) 03/25/2023 7:00 AM EST [facility] Operating Room Start: 03-25-2023 Subsequent hospital visit by physician 03/25/2023 7:00 AM EST Hospital Encounter [facility] [address] [place] [address] Alfonso Villarreal MD [address] [place] [address], [address] [place], [place] [id number] [facility] OR Start: 03-20-2023 End: 03-20-2023 Admission to establishment 03/20/2023 11:00 AM EST Pre-Admission Testing [facility] Pre-Admit Testing [address] [place] [address] [facility] Pre-Admit Testing Start: 03-20-2023 End: 03-20-2023 Patient encounter procedure 03/20/2023 9:00 AM EST Appointment [facility] [address] [facility] [address] [place] [id number] Alfonso Villarreal MD [address] [place] [address], [address] [place] [address] [facility] Start: 03-10-2023 End: 03-10-2023 Patient encounter procedure [facility] Vascular Lab Start: 03-03-2023 End: 03-03-2023 Patient encounter procedure 03/03/2023 9:00 AM EST Office Visit [facility] Concrete Pump Operator [address] [place] [address] [facility] Concrete Pump Operator Start: 02-16-2023 Patient referral [facility] Work Phone: Start: 02-16-2023 Patient discharge [facility] Start: 01-10-2023 Patient discharge [facility] Start: 01-07-2023 Following clinical pathway protocol [facility] Start: 01-07-2023 Assessment of risk of venous thromboembolism [facility] Start: 01-07-2023 [facility] Start: 01-07-2023 Elevation of affected extremity [facility] Start: 01-07-2023 Insertion of catheter into peripheral vein [facility] Start: 01-07-2023 Measuring intake and output [facility] Start: 01-07-2023 Notification of physician [facility] Start: 01-07-2023 Oxygen therapy [facility] Start: 01-07-2023 Patient education [facility] Start: 01-07-2023 Providing care according to standard [facility] Start: 01-07-2023 Provision of activity privileges [facility] Start: 01-07-2023 [facility] Start: 01-07-2023 Verification routine [facility] Start: 01-07-2023 Admission procedure [facility] Start: 01-07-2023 [facility] Start: 12-26-2022 COVID-19 Vaccine ( season) COVID-19 Vaccine ( season) [facility] Start: 12-26-2022 Influenza vaccination [facility] Start: 12-26-2022 [facility] Start: 09-11-2022 End: 09-11-2022 Patient encounter procedure 09/11/2022 Office Visit Urology Brenna Wright MD [address] [place] [address] [facility] Urology Start: 08-27-2022 End: 08-27-2022 Patient encounter procedure 08/27/2022 Office Visit Brenna Darling MD [address] [place] [address] [facility] Urology Start: 08-18-2022 End: 08-18-2022 Patient encounter procedure 08/18/[address] [facility] CT Start: 08-18-2022 Subsequent hospital visit by physician 08/18/2022 Hospital Encounter Radiology Brenna Wright MD [address] [place] [address] [facility] [address] Start: 08-12-2022 End: 08-13-2023 Basic metabolic 1998 panel - Serum or Plasma Basic metabolic panel Lab Routine Renal lesion Gross hematuria Expected: 08/12/2022 (Approximate), Expires: 08/13/2023 [facility] Work Phone: Comment on above: Expected: 08/12/2022 (Approximate), Expi res: 08/13/2023 Start: 07-15-2022 End: 07-16-2023 CT UROGRAM w wo iv contrast CT UROGRAM w wo iv contrast Imaging Routine Gross hematuria Expected: 07/15/2022, Expires: 07/16/2023 [facility] Work Phone: Comment on above: Expected: 07/15/2022, Expires: Start: 07-15-2022 End: 07-15-2022 Patient encounter procedure 07/15/2022 Procedure Visit UrologBrenna Sheldon MD [address] [place] [address] [facility] Urology Start: 06-11-2022 End: 06-11-2022 Patient encounter procedure 06/11/2022 Appointment Vascular Surgery [facility] [address] Vascular Lab Start: 06-04-2022 End: 06-04-2022 Patient encounter procedure 06/04/2022 Office Visit Vascular Surgery Cesar London MD [address] [facility] [address] [place] [address] [facility] Start: 05-20-2022 End: 05-20-2022 Admission to same day surgery center 05/20/2022 Surgery Procedural Cesar London MD [address] [facility] [address] [place], [place] [id number] FENESTRATED STENT GRAFT [99794 (CPT )] [facility] MAIN OR Comment on above: FENESTRATED STENT GRAFT [82006 (CPT )] Start: 05-20-2022 End: 05-20-2022 Anesthesia consultation 05/20/2022 Anesthesia Event Procedural Trudy Lucas, DIRECTOR MARKET INTELLIGENCE - CONCRETE BLOCK MAKER [address] [facility] [address] [place] [address] [facility] MA[facility] OR Start: 05-20-2022 End: 05-20-2022 Opn fem art expos dlvr evasc prosth uni OPEN FEMORAL ARTERY EXPOSURE FOR DELIVERY OF ENDOVASCULAR PROSTHESIS Infrarenal 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 05/20/2022 7:30 AM EST [facility] Operating Room Start: 05-20-2022 Subsequent hospital visit by physician 05/20/2022 Hospital Encounter Procedural Cesar London MD [address] [facility] [address] [place] [address] [facility] MAIN OR Start: 05-20-2022 End: 05-20-2022 Viscer and infrarenal abdom aorta 2 prosthesis FENESTRATED ENDOVASCULAR REPAIR PROCEDURES OF THE VISCERAL AND INFRARENAL AORTA Infrarenal 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 05/20/2022 7:30 AM EST [facility] Operating Room Start: 04-27-2022 DEPRESSION ASSESSMENT DEPRESSION ASSESSMENT [facility] Start: 01-20-2022 Patient referral [facility] Work Phone: Start: 12-26-2021 Influenza vaccination Influenza Vaccine (#1) ZUCHEM Start: 11-13-2021 Patient referral [facility] Work Phone: Start: 10-31-2021 Patient discharge [facility] Work Phone: Start: 10-31-2021 [facility] Work Phone: Start: 10-31-2021 Cardiac event recording [facility] Work Phone: Start: 10-30-2021 Admission procedure [facility] Work Phone: Start: 10-30-2021 Following clinical pathway protocol [facility] Work Phone: Start: 10-30-2021 Assessment of risk of venous thromboembolism [facility] Work Phone: Start: 10-30-2021 Cardiac monitoring [facility] Work Phone: Start: 10-30-2021 Catheterization of vein [facility] Work Phone: Start: 10-30-2021 Continuous pulse oximetry [facility] Work Phone: Start: 10-30-2021 Elevation of head of bed [facility] Work Phone: Start: 10-30-2021 Exercises [facility] Work Phone: Start: 10-30-2021 Implementation of planned interventions [facility] Work Phone: Start: 10-30-2021 Insertion of catheter into peripheral vein [facility] Work Phone: Start: 10-30-2021 Measuring intake and output [facility] Work Phone: Start: 10-30-2021 Notification of physician [facility] Work Phone: Start: 10-30-2021 Oxygen therapy [facility] Work Phone: Start: 10-30-2021 Providing care according to standard [facility] Work Phone: Start: 10-30-2021 Referral to occupational therapist [facility] Work Phone: Start: 10-30-2021 Referral to service [facility] Work Phone: Start: 10-30-2021 Speech therapy assessment [facility] Work Phone: Start: 10-30-2021 Tobacco use cessation education [facility] Work Phone: Start: 10-30-2021 [facility] Work Phone: Start: 10-30-2021 Verification routine [facility] Work Phone: Start: 10-30-2021 Admission procedure [facility] Work Phone: Start: 10-30-2021 Oxygen therapy [facility] Work Phone: Start: 10-30-2021 [facility] Work Phone: Start: 2019 RSV Immunization aged 60 or older (1 - 1-dose 60+ series) RSV Immunization aged 60 or older (1 - 1-dose 60+ series) [facility] Start: 2019 [facility] Start: 2014 PROSTATE CANCER SCREENING DISCUSSION PROSTATE CANCER SCREENING DISCUSSION [facility] Start: 2009 SHINGRIX VACCINE (1 of 2) SHINGRIX VACCINE (1 of 2) [facility] Start: 2009 Zoster Vaccines (1 of 2) Zoster Vaccines (1 of 2) [facility] Start: 2009 [facility] Start: 01-13-2004 COLOGUARD (FIT-DNA) COLOGUARD (FIT-DNA) [facility] Start: 01-13-2004 Colonoscopy COLONOSCOPY [facility] Start: 01-13-2004 COLORECTAL CANCER SCREENING COLORECTAL CANCER SCREENING [facility] Start: 01-13-[address] COLONOGRAPHY [facility] Start: 01-13-2004 DIABETES SCREEN DIABETES SCREEN [facility] Start: 01-13-2004 Diabetes Screening Diabetes Screening [facility] Start: 01-13-2004 FECAL OCCULT BLOOD FECAL OCCULT BLOOD [facility] Start: 01-13-2004 SIGMOIDOSCOPY SIGMOIDOSCOPY [facility] Start: 1994 Lipid 1996 panel - Serum or Plasma Lipid Screening [facility] Start: 1994 LIPID SCREEN LIPID SCREEN [facility] Start: 1978 DTaP/Tdap/Td Vaccines (1 - Tdap) DTaP/Tdap/Td Vaccines (1 - Tdap) [facility] Start: 1978 Urine microalbumin profile [facility] Start: 1978 [facility] Start: 1977 Diabetes mellitus screening Diabetes Screening [facility] Start: 1977 Hepatitis C screening [facility] Start: 1977 HEPATITIS C SCREENING HEPATITIS C SCREENING [facility] Start: 1977 HIV SCREENING HIV SCREENING [facility] Start: 1971 Depression Screening Depression Screening [facility] Start: 1971 [facility] Start: 1965 PNEUMOCOCCAL (1 - PCV) PNEUMOCOCCAL (1 - PCV) [facility] Start: 1965 Pneumococcal vaccination Pneumococcal Vaccine (1 - PCV) [facility] Start: 1965 Pneumococcal Vaccine: Pediatrics (0 to 5 Years) and At-Risk Patients (6 to 64 Years) (1 - PCV) Pneumococcal Vaccine: Pediatrics (0 to 5 Years) and At-Risk Patients (6 to 64 Years) (1 - PCV) [facility] Start: 1965 Pneumococcal Vaccine: Pediatrics (0 to 5 Years) and At-Risk Patients (6 to 64 Years) (1 of 2 - PCV) Pneumococcal Vaccine: Pediatrics (0 to 5 Years) and At-Risk Patients (6 to 64 Years) (1 of 2 - PCV) [facility] Start: 1965 [facility] Start: 01-13-1960 MMR Vaccines (1 of 1 - Standard series) MMR Vaccines (1 of 1 - Standard series) [facility] Start: 01-13-1960 [facility] Start: 1959 COVID-19 Vaccine (#1) COVID-19 Vaccine (#1) [facility] Start: 1959 [facility] Start: 1959 Annual wellness visit Medicare Initial Physical (IPPE) [facility] Start: 1959 Echocardiography Echocardiogram [facility] Start: 1959 Hepatitis B Vaccines (1 of 3 - 3-dose series) Hepatitis B Vaccines (1 of 3 - 3-dose series) [facility] Start: 1959 HIV screening [facility] Start: 1959 Lipid panel [facility] Start: 1959 Screening for malignant neoplasm of colon [facility] Blood chemistry [facility] Catheterization of l eft heart [facility] Ethanol [Mass/volume ] in Serum or Plasma [facility] End: 05-20-2022 Non-gynecologic cytology [facility] [employer] Work Phone: Comment on above: Once (Lab) for 1 Occurrences starting until 05/20/2022, 1 completed OUTSIDE PROCEDURE SCAN OUTSIDE P ROCEDURE SCAN Procedures Ordered: 08/15/2022 [facility] [employer] [facility] Comment on above: Ordered: 08/15/2022 OUTSIDE PROCEDURE SCAN OUTSIDE P ROCEDURE SCAN Procedures Ordered: 05/07/2023 [facility] Comment on above: Ordered: 05/07/2023 OUTSIDE PROCEDURE SCAN OUTSIDE P ROCEDURE SCAN Procedures Ordered: 05/11/2023 [facility] [employer] Comment on above: Ordered: 05/11/2023 Patient referral [facility] Work Phone: End: 03-25-2023 Prothrombin time (PT) in Blood by Coagulation assay [facility] [employer] [facility] Work Phone: Immunizations Immunization Date Immunization Notes Care Provider [facility] 02-19-2017 influenza virus vaccine, unspecified formulation Brenna Wright MD Work Phone: [facility] NEGATED: Highlighted row has not occurred!03-27-2023 Influenza, injectable, Madin [place] Canine Kidney, preservative free, quadrivalent Alfonso Villarreal MD Work Phone: [facility] [employer] Comment on above: Deferred: Patient Re fused Payers Date Payer Category Payer Unknown [employer] [place] [employer] [id number] 2022-Present [address] [place] [address] Commercial [id number] 2022 Unknown [id number] 2022 Self-pay [id number] 2022 Private Health Insurance [id number] Unknown [id number] Unknown [id number] 462 Unknown [id number]. 462 Unknown [id number]. 462 Unknown [id number]. 462 Unknown [id number] [id number]. 462 Unknown [id number] [id number]. 462 Unknown [id number] [id number]. 462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 diaphoresis, fatigue and fever. Eyes: Positive for visual disturbance. Respiratory: Negative for cough, shortness of breath and wheezing. Cardiovascular: Negative for chest pain, palpitations and leg swelling. Gastrointestinal: Negative for abdominal distention, constipation and diarrhea. Skin: Negative for color change, pallor and rash. Objective Vitals: 04/06/23 1437 BP: 134/78 Pulse: 71 Wt Readings from Last 3 Encounters: 04/06/23 145 lb (65.8 kg) 04/02/23 138 lb 3.2 oz (62.7 kg) 03/20/23 150 lb (68 kg) Physical Exam Cardiovascular: Rate and Rhythm: Normal rate and regular rhythm. Heart sounds: Normal heart sounds. Pulmonary: Effort: Pulmonary effort is normal. Breath sounds: Normal breath sounds. Abdominal: General: Bowel sounds are normal. Palpations: Abdomen is soft. There is no mass. Tenderness: There is no abdominal tenderness. Hernia: No hernia is present. Skin: General: Skin is warm and dry. Comments: Surgical Incisions: well approximate; clean dry with no drainage noted. Surrounding skin no redness, warmth, or signs of infection noted. Neurological: Mental Status: He is alert and oriented to person, place, and time. Labs/Imaging/Testing: reviewed EMR, see A&P for pertinent diagnostic results related to office visit Disclaimer INFORMED CONSENT:The nature and purpose of the proposed treatment or procedure have been discussed. The risks and benefits of the proposed treatment or procedures have been reviewed. Alternatives have been reviewed in addition to the risks and benefits of not receiving treatments or undergoing procedures. Pursuant to this discussion, the patient agrees to undergo the proposed treatment or procedure. Captured images seen in this note from are not a substitute for a comprehensive interpretation of the entire data set as reflected by the interpreting physician with regard to radiology, echocardiography, and other diagnostic images. This note may have been dictated using [employer] Medical Practice Edition 2.6 and/or [employer] Voice Recognition Feature. The document was proofread, however unrecognized voice recognition glove turner and former errors may be present. documented in this encounter [facility] 04-06-2023 Instructions MARISABEL Goodwin CNP - 04/06/2023 3:00 PM EST Weight restriction measures 1-4 weeks from date of surgery- 10lbs weight restriction: 04/22/23 5-8 weeks from date of surgery- 20lbs weight restriction approximate end date: 05/20/23 documented in this encounter [facility] 04-02-2023 Note Discharge Summary: C ardiothoracic Surgery Regan Coughlin, 63 y.o., 1960 ADMIT DATE: 03/25/2023 DISCHARGE DATE: 04/02/2023 DISCHARGING SURGEON: Alfonso Villarreal MD, Office Number: [phone] PRIMARY CARE PHYSICIAN: Sophie Craft TREATMENT TEAM: Railway Signalling Engineer: Dr. Matt Cherry VISIT STATUS: Admission CODE STATUS: Full Code SURGERY: 03/25/23: CABG x4, MAZE, LAAL with atriclip, and LLE EVH with Dr. Villarreal HOSPITAL COURSE: 63 yo male with PMH of CAD & STEMI s/p PCI (RCA in 2019), Afib (on Eliquis), AAA s/p fenestrated EVAR with RTOR for bilateral groin hematomas, hematuria, HTN, HPL, ETOH, current smoker. He [facility] 01[facility]/23 with worsening SOB x3 weeks. Echo shoed LVEF 50% with wall motion abnormalities. He did develop Afib RVR during hospitalization and reverted back to SR. Had a heart cath on 02/16/23 which showed multivessel CAD involving LM, prox LAD, and RCA. Postoperative course complicated by ETOH withdrawal/ICU delirium. Once he cleared mentation and was medically optimized, he was discharged home 04/02/23. POD#8. He was discharged on short course of PO lasix and also Plavix was not started due to risk of bleeding - patient discharged on ASA/Eliquis - This was discussed with surgeon. BRIEF PE ON DAY OF DISCHARGE: Physical Exam Cardiovascular: Rate and Rhythm: Normal rate and regular rhythm. Heart sounds: Normal heart sounds. No murmur heard. No friction rub. Pulmonary: Effort: Pulmonary effort is normal. Skin: General: Skin is warm and dry. Capillary Refill: Capillary refill takes less than 2 seconds. Findings: Bruising and ecchymosis present. Comments: Surgical Incisions: well approximate; clean dry with no drainage noted. Surrounding skin no redness, warmth, or signs of infection noted. Neurological: Mental Status: He is alert. Psychiatric: Behavior: Behavior is cooperative. DIAGNOSTICS: BP 126/73 (BP Location: Left arm, Patient Position: Lying) Pulse 66 Temp 37.2 ?C (98.9 ?F) (Temporal) Resp 16 Ht 5' 6 (1.676 m) Wt 138 lb 3.2 oz (62.7 kg) SpO2 98% BMI 22.31 kg/m? Recent Labs 03/31/23 0517 04/01/23 0414 04/02/23 0439 CREATININE 1.14 1.19 1.07 HGB 10.2* 11.6* 11.3* PLT 191 253 247 WBC 8.7 9.7 9.2 NA 132* 137 134* K 3.4* 3.9 4.3 DISCHARGE DIAGNOSES: CAD s/p CABGx4 03/25 Afib (on Eliquis) s/p MAZE 03/25 AAA s/p fenestrated EVAR HTN HPL ETOH with withdrawal/ICU delirium Right effusion s/p R thora 03/30 Current smoker Hx. Hematuria Hx. Stent to RCA in 2019 Post operative Pulm Management: Normal Post-operative Course Acute blood loss anemia/consumptive thrombocytopenia Severe malnutrition DISCHARGE MEDICATIONS: Medication List START taking these medications acetaminophen 500 MG tablet Commonly known as: Tylenol Take 2 tablets (1,000 mg) by mouth in the morning and 2 tablets (1,000 mg) at noon and 2 tablets (1,000 mg) before bedtime. Do all this for 10 days. amiodarone 200 MG tablet Commonly known as: Pacerone Take 2 tablets (400 mg) by mouth 2 times daily for 14 days, THEN 1 tablet (200 mg) daily. Start taking on: April 02, 2023 amLODIPine 5 MG tablet Commonly known as: Norvasc Take 1 tablet (5 mg) by mouth daily. oxyCODONE 5 MG immediate release tablet Commonly known as: Roxicodone Take 1 tablet (5 mg) by mouth every 6 hours as needed for severe pain (7-10) (acute post surgical pain) for up to 7 days. pantoprazole 40 MG EC tablet Commonly known as: ProtoNix Take 1 tablet (40 mg) by mouth every morning (before breakfast). Do not crush, chew, or split. Start taking on: April 03, 2023 CONTINUE taking these medications aspirin 81 MG EC tablet atorvastatin 80 MG tablet Commonly known as: Lipitor Eliquis 5 MG tablet Generic drug: apixaban furosemide 40 MG tablet Commonly known as: Lasix Take 1 tablet (40 mg) by mouth daily for 7 days. MAGNESIUM PO metoprolol tartrate 25 MG tablet Commonly known as: Lopressor STOP taking these medications bacitracin 500 UNIT/GM ointment chlorhexidine 0.12 % solution Commonly known as: Peridex POTASSIUM CHLORIDE PO Where to Get Your Medications These medications were sent to [facility] [address] [place] [address] Hours: Thursday to Thursday 10 am to 6 pm amiodarone 200 MG tablet amLODIPine 5 MG tablet furosemide 40 MG tablet oxyCODONE 5 MG immediate release tablet pantoprazole 40 MG EC tablet You can get these medications from any pharmacy You don't need a prescription for these medications acetaminophen 500 MG tablet *The patient's OARRS report was obtained and reviewed.* I explained to Regan Coughlin that narcotic pain medications have addictive potential and should only be taken for acute post operative surgical pain. I also explained that narcotic/opioid medication should not be taken to help sleep as they are only intended to treat pain. In (more content not included)... [facility] 04-02-2023 Hospital Discharg e instructions Isabela Hernandez APRN - CONCRETE BLOCK MAKER - 04/02/2023 6:53 AM EST Cardiothoracic Surgery: Symptom Management Office phone number: [phone] Office is open 8:30 am -4 pm. If you need assistance after hours, this will direct you to a nursing hotline. GREEN ZONE: All Clear- Your Symptoms Are Under Control Incisional pain is managed by taking Acetaminophen and/or pain medication No increase in shortness of breath No increase in leg swelling or weight gain No frequent lightheadedness/dizziness No redness or drainage from incisions. Small amount of thin, blood tinged or yellow drainage is not uncommon for few days post discharge This Means You Should: Continue current plan of care Continue taking your medications as prescribed Continue activity as tolerated, including 4 walks daily and PT exercised Eat healthy diet, no caffeine Keep all follow-up appointments No smoking YELLOW ZONE: Caution Incisional pain that is getting worse and/or not managed by pain medication Increase in shortness of breath, especially when at rest Increased leg swelling or new leg swelling Weight gain (more than 3lb in 1 day or 5lb in 1 week) Lightheadedness, dizziness, or heavy sweating Redness and/or thick drainage from incision Fever/chills This Means You Should: Call cardiothoracic surgery line for further instructions: [phone] Office is open 8:30 am -4 pm. If you need assistance after hours, this will direct you to a nursing hotline. RED ZONE: Medical Alert Severe shortness of breath at rest Severe chest pain/pressure or pain that radiates to neck, jaw, back, and/or arm that is NOT relieved with rest and pain medication. May be similar to pain prior to surgery Passing out or fainting This Means You Should: call EMS or seek care in Emergency Department documented in this encounter [facility] [facility] Note [facility] Respiratory Care Department Progress Note As part of the Respiratory Assessment Program (RAP), the following Respiratory Therapist evaluation has been completed, including a chart review and clinical/physical assessment. Respiratory Therapist RAP Evaluation Guideline Points 0 1 2 3 4 Points Strongly Consider History Factor No Pulmonary conditions Stable Pulmonary condition(s) Surgery or Intervention that may impact Pulmonary system (at risk) Surgery or Intervention that is impacting Pulmonary system Active Exacerbation of Pulmonary Condition 1 Respiratory Pattern Regular, RR= 12-18 MARIO or Increased RR= 19-24 Irregular, or RR= 25-30 SOB, talk in short sentences, or RR= 31-35 Severe SOB, accessory muscle use, one word answers, or RR>35 0 Aerosol Med(s), High Flow O2 Breath Sounds Clear Diminished in 1 lobe Diminished in ? 2 lobes Adventitious breath sounds Coarse crackles, Wheezes, or Diminished in >2 lobes 0 Aerosol Med(s), Bronchial Hygiene, Hyperinflation Cough & Sputum Strong cough, no secretion retention or production Weak cough, no secretion retention or production Weak cough, w/ production (less often than Q2hr), or secretion retention No cough, w/ secretion retention or production (less often than Q2hr) Significant secretion production (more often than Q2hr) or mucus plug 0 Aerosol Med(s), Bronchial Hygiene, Hyperinflation Level of Activity Ambulatory Ambulatory with Assist Up in chair or edge of bed (dangle) Non-ambulatory, bedridden with active ROM Completely paralyzed or without active ROM 1 Triage 5 0-2 Triage 4 3-5 Triage 3 6-10 Triage 2 11-14 Triage 1 ?15 Total 2 Triage Score = 5 TRIAGE SCORING - SUGGESTED FREQUENCIES Aerosol Therapy Bronchial Hygiene Hyperinflation Triage Score Q4h & PRN 1 Q4hWA (QID) & PRN 2 TID & PRN 3 BID & PRN 4 PRN 5 Therapy(s) Indicated Yes/No Aerosol Medication y Hyperinflation n Bronchial Hygiene n High Flow Oxygen n Flow Rates PEF (L/Sec) IVC FVC FEV1 FEV1/FVC Patient instructed and returned demonstration on use of MDI (with spacer, as appropriate) None RT to enter/modify frequency of treatment order in EMR/EHR to match this RAP evaluation. Based on this RAP evaluation the following therapy is being initiated: Duoneb At the following frequency: BidPrn Comments: Thank you for involving Respiratory in the care of this patient, [facility] 04-01-2023 Note Care Management Prog ress Note Patient remains in CTV ICU s/p CABG x 4 POD # 7. VSS, on RA, in NSR on tele, diuresis transitioned to PO, resume home Eliquis, amio taper at dc, and PT/OT recommending home with assist. Patient from home with brother, lacks payor source. Discharge Milestones and Delays Expected Date/Time: 04/02/[address] discharge order Complete med reconciliation Case mgmt discharge readiness Clinical Stability Diagnsotic Workup Expected Discharge History Expected Date/Time Set By Reviewed At 04/02/2023 Marisabel Watts RN 04/01/2023 10:23 AM 04/02/2023 Marisabel Watts RN 03/31/2023 9:09 AM 04/02/2023 Marisabel Watts RN 03/30/2023 9:16 AM 03/30/2023 Marisabel Watts RN 03/26/2023 10:57 AM 03/30/2023 Laxmi Calvillo RN 03/25/2023 11:35 AM 03/30/2023 Deon Langston, DIRECTOR MARKET INTELLIGENCE - [employer]CRETE BLOCK MAKER 03/25/2023 5:58 AM Length of Stay (Days): 7 GMLOS: 5.8 [facility] 04-01-2023 History of Presen t illness Narrative [facility] Respiratory Care Department Progress Note As part of the Respiratory Assessment Program (RAP), the following Respiratory Therapist evaluation has been completed, including a chart review and clinical/physical assessment. Respiratory Therapist RAP Evaluation Guideline Points 0 1 2 3 4 Points Strongly Consider History Factor No Pulmonary conditions Stable Pulmonary condition(s) Surgery or Intervention that may impact Pulmonary system (at risk) Surgery or Intervention that is impacting Pulmonary system Active Exacerbation of Pulmonary Condition 1 Respiratory Pattern Regular, RR= 12-18 MARIO or Increased RR= 19-24 Irregular, or RR= 25-30 SOB, talk in short sentences, or RR= 31-35 Severe SOB, accessory muscle use, one word answers, or RR>35 0 Aerosol Med(s), High Flow O2 Breath Sounds Clear Diminished in 1 lobe Diminished in ? 2 lobes Adventitious breath sounds Coarse crackles, Wheezes, or Diminished in >2 lobes 0 Aerosol Med(s), Bronchial Hygiene, Hyperinflation Cough & Sputum Strong cough, no secretion retention or production Weak cough, no secretion retention or production Weak cough, w/ production (less often than Q2hr), or secretion retention No cough, w/ secretion retention or production (less often than Q2hr) Significant secretion production (more often than Q2hr) or mucus plug 0 Aerosol Med(s), Bronchial Hygiene, Hyperinflation Level of Activity Ambulatory Ambulatory with Assist Up in chair or edge of bed (dangle) Non-ambulatory, bedridden with active ROM Completely paralyzed or without active ROM 1 Triage 5 0-2 Triage 4 3-5 Triage 3 6-10 Triage 2 11-14 Triage 1 ?15 Total 2 Triage Score = 5 TRIAGE SCORING - SUGGESTED FREQUENCIES Aerosol Therapy Bronchial Hygiene Hyperinflation Triage Score Q4h & PRN 1 Q4hWA (QID) & PRN 2 TID & PRN 3 BID & PRN 4 PRN 5 Therapy(s) Indicated Yes/No Aerosol Medication y Hyperinflation n Bronchial Hygiene n High Flow Oxygen n Flow Rates PEF (L/Sec) IVC FVC FEV1 FEV1/FVC Patient instructed and returned demonstration on use of MDI (with spacer, as appropriate) None RT to enter/modify frequency of treatment order in EMR/EHR to match this RAP evaluation. Based on this RAP evaluation the following therapy is being initiated: Duoneb At the following frequency: BidPrn Comments: Thank you for involving Respiratory in the care of this patient, Images from the original note were not included. OCCUPATIONAL THERAPY [facility] Treatment Note Name/MRN: Regan Coughlin ([id number]) Date of : 1960 Age: 63 y.o. Room/Bed: T1-105/T1-105 A Discharge Recommendation: Home with assist PRN, Home with Home health OT Equipment Needed: Yes Mobility Devices: ADL Assistive Devices ADL Assistive Devices: Shower Chair with back Prior Level of Function ADL Assistance: Independent Ambulation Assistance: Independent Transfer Assistance: Independent Assessment Pt progressing with ambulation/transfers to supv/independent, unable to assess ADLS as pt declined this session. Pt continues to be limited with chest tube/sternal precautions. Discussed DME needs in preparation for home going; shower chair with back recommended for energy conservation/fall prevention. Recommend HHOT and assist PRN at home when discharged. Subjective Upon entry, pt seated in recliner and agreeable to OT services. Pt requested to ambulate in hallway with provider. Pt with flatter affect today and stated he wants to go home. RN approved Pain: RN managing pain. Medical Precautions: No active isolations Proper PPE donned/doffed in accordance with facility standards. Fall Risk: Monzon Fall Risk Score: 35 (Medium Risk) Precautions/Restrictions: Sternal Precautions: No Pushing, No Pulling, No Lifting Greater Than 10 lbs Family/Caregiver Present: none Objective Transfers/Mobility Sit to stand: Supervision Stand to sit: Supervision Sitting balance: Independent Standing balance: Supervision Functional mobility: Supervision, assist with chest tube munoz No device. Device(s) used: none Plan Continue acute OT per plan of care. Safety/Education Safety Safety Devices in place: call light within reach, left in chair, nurse notified, and no alarms engaged upon entry Restraints: No Education Education Given To: patient Education Provided: OT Role, Plan of Care, Home Exercise Program, Precautions, ADL Adaptive Strategies, Transfer Training, Energy Conservation, Equipment, Discharge Recommendations, Benefits of Increasing Activity, and Breathing Techniques Education Method: Verbal and Demonstration Barriers to Learning: None Education Outcome: Verbalized Understanding and Demonstrated Understanding AM-PAC AM-PAC Inpatient Daily Activity Raw Score: 22 ADL Inpatient CMS G-Code Modifier: CJ Goals Patient Stated Goal: To go home Encounter Problems Encounter Problems (Active) Balance Patient will maintain dynamic standing balance for 5-7 minutes with supervision in order to demonstrate decreased risk of falling. (Progressing) Start: 03/30/23 Expected End: 04/27/23 Bathing Patient will utilize adaptive techniques to bathe body with supervision (Progressing) Start: 03/30/23 Expected End: 04/27/23 Safety Patient will recall/demonstrate weight bearing and/or ROM restrictions with all functional mobility in order to promote healing and safety with functional tasks. (Progressing) Start: 03/30/23 Expected End: 04/27/23 Toileting Patient will complete toileting tasks at standard toilet with modified independence (Progressing) Start: 03/30/23 Expected End: 04/27/23 Transfers Patient will complete functional transfer with least restrictive device with modified independence in order to prepare for ambulation. (Progressing) Start: 03/30/23 Expected End: 04/27/23 Therapy Time Individual Co-treatment Time In 0843 Time Out 0910 Minutes 27 Timed Code Treatment Minutes: 27 Minutes (2 act) COMFORT Abad Images from the original note were not included. PHYSICAL THERAPY [facility] Treatment Note Name/MRN: Regan Coughlin ([id number]) Date of : 1960 Age: 63 y.o. Room/Bed: T1-105/T1-105 A Discharge Recommendation: Home with assist PRN Equipment Needed: No Prior Level of Function ADL Assistance: Independent Ambulation Assistance: Independent Transfer Assistance: Independent Patient reports his brother does not work but does have chronic back pain which limits him. Patient is typically indep with all IADLs, ADLs and mobility without a device. Assessment Pt independent with transfers, gait and stairs. No LOB. Compliant with sternal precautions. Rec home with assist at discharge. Subjective Pt sitting at EOB, eager to go home. Agreeable to PT. Pain: Pt denies any current pain. Medical Precautions: No active isolations Proper PPE donned/doffed in accordance with facility standards. Fall Risk: Monzon Fall Risk Score: 35 (Medium Risk) Precautions/Restrictions: Sternal Precautions: No Pushing, No Pulling, No Lifting Greater Than 10 lbs Lines/Drains/Airways: PIV, telemetry, continuous O2, CT x1 Family/Caregiver Present: none Objective Ambulation Ambulation 1 Assistive device(s) used: none Assist level: Independent Distance (ft): 400ft Quality of gait: No gait deviations, No LOB Transfers/Mobility Sit to stand: Independent Stand to sit: Independent X1 from EOB. Compliant with sternal precautions. Device(s) used: none Balance: Dynamic standing with functional reaching and turning direction, no LOB, independent. Stairs Stairs 1 Assistive device(s) used: none Assist level: Independent # of steps: 4 x2 reps Rails: right Additional factors: reciprocal going up, reciprocal going down Plan Continue acute PT per plan of care. Safety/Education Safety Safety Devices in place: call light within reach and left in chair Restraints: No Education Education Given To: patient Education Provided: PT Goals, Gait Training, Home Exercise Program, and Breathing Techniques Education Method: Verbal Barriers to Learning: None Education Outcome: Verbalized Understanding Outcome Measures AM-PAC AM-PAC Inpatient Mobility Raw Score : 24 AM-PAC Inpatient Mobility Raw Score (No Stairs) : 20 JH-HLM JH-HLM Score: Walked 250 ft or more (i.e. several laps on unit) Goals Patient Stated Goal: To go home Encounter Problems Encounter Problems (Active) Cardiac Patient will perform bed mobility with modified independence in order to improve independence and prepare for out of bed mobility. (Not Addressed) Start: 03/26/23 Expected End: 04/09/23 Patient will complete sit to stand transfer with modified independence in order to improve safety and prepare for out of bed mobility. (Completed) Start: 03/26/23 Expected End: 04/09/23 Resolved: 04/01/23 Patient will ambulate 400 feet or ambulate 5 minutes with modified independence with RPE of 14 or lower. (Completed) Start: 03/26/23 Expected End: 04/09/23 Resolved: 04/01/23 Patient will ascend and descend flight of stairs with modified independence and rail for balance only. (Progressing) Start: 03/26/23 Expected End: 04/09/23 Patient will be independent with P&C exercises. (Not Addressed) Start: 03/26/23 Expected End: 04/09/23 Patient will be independent with managing secretions and home walking program. (Not Addressed) Start: 03/26/23 Expected End: 04/09/23 Pain - Adult Therapy Time Individual Co-treatment Time In 0825 Time Out 0834 Minutes 9 Timed Code Treatment Minutes: 9 Minutes (gait) Nils Barker PTA Images from the original note were not included. Cardiothoracic Surgery/CCM Progress Note PATIENT NAME: Regan Coughlin DATE: 04/01/23 HPI: 63 yo male with PMH of CAD & STEMI s/p PCI (RCA in 2019), Afib (on Eliquis), AAA s/p fenestrated EVAR with RTOR for bilateral groin hematomas, hematuria, HTN, HPL, ETOH, current smoker. He presented to OSH ED on 01/07/23 with worsening SOB x3 weeks. Echo shoed LVEF 50% with wall motion abnormalities. He did develop Afib RVR during hospitalization and reverted back to SR. Had a heart cath on 02/16/23 which showed multivessel CAD involving LM, prox LAD, and RCA. Surgery/Procedure: 03/25/23: CABG x4, MAZE, LAAL with atriclip, and LLE EVH with Dr. Villarreal Interval History: 04/01/23, POD# 7: VSS overnight, borderline hypotension yesterday, Hydralazine held. He remained in NSR on tele. On RA. P ambulating in hallways by himself. No acute complaints this am. Review of Systems Constitutional: Positive for fatigue. Negative for activity change, appetite change, diaphoresis and fever. Respiratory: Negative for cough, shortness of breath and wheezing. Cardiovascular: Negative for chest pain, palpitations and leg swelling. Gastrointestinal: Negative for abdominal distention, constipation and diarrhea. Skin: Negative for color change, pallor and rash. Objective: CT output cc/24hrs: 120 mL Last BM Date: 03/31/23 Vitals: BP: 122/75, MAP (mmHg): 89, BP Method: Automatic Heart Rate: 77 Resp: 18 Temp: 37.3 C (99.2 F), Temp Source: Temporal BMI (Calculated): 21.93 CXR: BMP: Recent Labs 03/30/23 0350 03/31/23 0517 04/01/234 NA 135 132* 137 K 3.5 3.4* 3.9 CL 102 100 100 CO2 26 24 25 BUN 31* 32* 33* CREATININE 1.05 1.14 1.19 CALCIUM 8.4 8.9 9.1 MG 2.2 2.3 2.4* CBC: Recent Labs 03/30/23 0350 03/31/23 0504/01/23413 WBC 8.8 8.7 9.7 HGB 9.6* 10.2* 11.6* HCT 28.3* 29.7* 35.0* PLT 171 191 253 MCV 94.2 93.6 94.1 RDW 14.6* 14.6* 14.1 INR: Recent Labs 03/30/23 0350 INR 1.2* Physical Exam Cardiovascular: Rate and Rhythm: Normal rate and regular rhythm. Heart sounds: Normal heart sounds. No murmur heard. No friction rub. Pulmonary: Effort: Pulmonary effort is normal. Breath sounds: No decreased breath sounds. Musculoskeletal: Right lower leg: No edema. Left lower leg: No edema. Skin: General: Skin is warm and dry. Capillary Refill: Capillary refill takes less than 2 seconds. Findings: Bruising and ecchymosis present. Comments: Surgical Incisions: well approximate; clean dry with no drainage noted. Surrounding skin no redness, warmth, or signs of infection noted. Neurological: Mental Status: He is alert. Psychiatric: Behavior: Behavior is cooperative. Assessment: CAD s/p CABGx4 03/25 Afib (on Eliquis) s/p MAZE 03/25 AAA s/p fenestrated EVAR HTN HPL ETOH Right effusion Current smoker Hx. Hematuria Hx. Stent to RCA in 2019 Post operative Pulm Management: Normal Post-operative Course Acute blood loss anemia/consumptive thrombocytopenia Plan: Patient Status: Telemetry Continue med regimen ASA/Statin BB- Metoprolol 25mg BID Amio PO- taper at d/c Norvasc 5mg Remeron HS Folate & thiamine Hold hydralazine Change Lasix to PO Resume home Eliquis D/C CTs & IJ Endocrine signed off- OP f/u with PCP PT/OT: Home with Assist PRN and Outpatient PT Pulmonary hygiene: IS and Acapella GI prophy: PO protonix DVT prophy:TEDs, SCDs, and Patient on OAC/NOAC Disposition: TBD Central Line: [x]Yes [] No Arterial Line: []Yes [x] No Ramirez: []Yes [x] No Restraints: []Yes [x] No Patient discussed and plan of day developed from multidisciplinary rounds between Cardiothoracic Surgery (Cardiothoracic Surgeon, GEOVANNY) and Critical Care Attending Cardiac Core Medications: ASA, Statin, and BB EF: 03/25 - normal Blood Conservation: transfuse postop Railway Signalling Engineer: Dr. Matt Cherry Nutrition Assessment Type and Reason for Visit: Reassess Nutrition Recommendations/Plan: Pt meets ASPEN/AND criteria for malnutrition as indicated below Per MNT protocol, will discontinue carb limit (no hx of DM, poor intake, not requiring insulin) Per MNT protocol, will modify ONS to Ensure Plus BID per pt preference Encourage overall p.o. intake and protein intake In-depth education not appropriate due to poor nutrition status and limited p.o. intake. Pt has been provided with heart healthy handout and [facility] [address] phone number RD will monitor overall nutrition status and will follow weekly Malnutrition Assessment: Malnutrition Status: Severe malnutrition Context: Acute Illness (acute on chronic) Findings of the 6 clinical characteristics of malnutrition: Energy Intake: 50% or less of estimated energy requirements for 5 or more days Weight Loss: Greater than 7.5% over 3 months Body Fat Loss: Moderate body fat loss Orbital, Fat Overlying Ribs, Buccal region Muscle Mass Loss: Moderate muscle mass loss Temples (temporalis), Clavicles (pectoralis & deltoids) Fluid Accumulation: No significant fluid accumulation Extremities (? 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 He presented to OSH ED on 01/07/23 with worsening SOB x3 weeks. Echo shoed LVEF 50% with wall motion abnormalities. He did develop Afib RVR during hospitalization and reverted back to SR. Had a heart cath on 02/16/23 which showed multivessel CAD involving LM, prox LAD, and RCA. He presented 03/25/23 for planned surgery and underwent CABG x4, POD #5. He did develop Afib RVR during hospitalization and reverted back to SR. Right thoracentesis yesterday with 350 mL removed. Pt is resting in chair, leaning over side of chair, reports poor appetite, not really eating at all, states he has only consumed peanut butter packet today. When asked about his weight loss, he states, I'll probably weight 110# when I leave here. This visit, pt also reports poor p.o. intake prior to admission as well, states he might eat 3 steaks per week and that is all. He is observed with progressive muscle wasting and subcutaneous fat losses. He is not consuming Ensure Surgery- does not like the taste. He is agreeable to trying chocolate Ensure Plus. RD also encouraged increased overall p.o. intake and protein intake Estimated Daily Nutrient Needs: Energy Requirements Based On: Kcal/kg Weight Used for Energy Requirements: Vaughn (25-30 kcal/kg) Weight for Energy Calculation (kg): 64.4 kg Total Energy Requirements (kcals/day): 9160-1621 Weight Used for Protein Requirements: Vaughn (1.2-1.5 g/kg) Weight in Kg Used for Protein Requirements: 64.4 kg Estimated Total Protein (g/day): 77-97 Estimated Daily Total Fluid (ml/day): per MD Nutrition Related Findings: Nutrition History: Independent of feeding. Lives with: Extended family members (brother) Teeth: Missing teeth GI symptoms: Decreased appetite and Anorexia. Sai Scale Score: 20 .Wound Type: Surgical Incision Net IO Since Admission: -6,696.49 mL [03/31/23 1434] Edema: RUE Edema: None, LUE Edema: None, RLE Edema: (none), LLE Edema: (none) Bowel Sounds (All Quadrants): Active Abdomen Inspection: Soft, Nondistended Last BM Date: 03/31/23 Labs and meds reviewed: acetaminophen, 1,000 mg, Oral, q8h amiodarone, 400 mg, Oral, BID amLODIPine, 5 mg, Oral, Daily aspirin, 81 mg, Oral, Daily atorvastatin, 80 mg, Oral, Nightly folic acid, 1 mg, Oral, Daily furosemide, 40 mg, IntraVENous, Daily heparin, 5,000 Units, SubCUTAneous, BID hydrALAZINE, 50 mg, Oral, TID hydrocortisone, , Topical, BID influenza, 0.5 mL, IntraMUSCular, Once ipratropium-albuterol, 3 mL, Nebulization, BID Lidocaine, 1 patch, Topical, Daily metoprolol tartrate, 25 mg, Oral, BID mirtazapine, 15 mg, Oral, Nightly pantoprazole, 40 mg, Oral, qAM AC polyethylene glycol (PEG) 3350, 17 g, Oral, Daily potassium chloride CR, 40 mEq, Oral, Daily senna-docusate sodium, 2 tablet, Oral, Nightly sodium chloride 0.9%, 10 mL, IntraVENous, 2 times per day thiamine, 100 mg, Oral, Daily BMP: Recent Labs 03/29/23 0011 03/30/23 0350 03/31/23 0517 NA 138 135 132* K 3.1* 3.5 3.4* CL 103 102 100 CO2 26 26 24 BUN 37* 31* 32* CREATININE 1.08 1.05 1.14 GLUCOSE 102* 85 100 CALCIUM 8.4 8.4 8.9 MG 2.2 2.2 2.3 Lab Results Component Value Date HGBA1C 4.2 03/20/2023 Current Nutrition Therapies: Adult diet Regular; 5 carb choices (75 gm/meal) Current Oral Intake Average Meal Intake: 1-25% Average Supplements Intake: 0% Anthropometric Measures: Height: 167.6 cm (5' 6) Current Body Weight: 62 kg (136 lb 9.6 oz) (03/31) Admission Body Weight: 68 kg (150 lb) (03/25) Usual Body Weight: (178# on 03/26/23, 169# on 05/13/22, 155# on 01/07/23) Vaughn Body Weight (lbs) (Calculated): 142 lbs Vaughn Body Weight (Kg) (Calculated): 65 kg % Vaughn Body Weight (Calculated): 113.8 % BMI (kg/m2) (Calculated): 22.1 BMI Categories: Normal Weight (BMI 18.5-24.9) Wt Readings from Last 10 Encounters: 03/31/23 62 kg (136 lb 9.6 oz) 03/20/23 68 kg (150 lb) 02/24/23 67.1 kg (148 lb) 06/04/22 74 kg (163 lb 3.2 oz) 05/20/22 76.7 kg (169 lb) 05/13/22 76.8 kg (169 lb 6.4 oz) 04/09/22 80.7 kg (178 lb) 03/26/22 81 kg (178 lb 9.6 oz) Nutrition Diagnosis: Severe malnutrition, In context of acute illness or injury related to inadequate protein-energy intake as evidenced by weight loss 7.5% in 3 months, moderate loss of subcutaneous fat, moderate muscle loss (energy intake <50% estimated needs for >5 days) Increased nutrient needs related to increase demand for energy/nutrients as evidenced by wounds (surgical) Nutrition Interventions: Food and/or Nutrient Delivery: Modify Oral Nutrition Supplement, Modify Current Diet Nutrition Education/Counseling: Education not appropriate (d/t poor nutrition status, handout provided with [facility] [address] phone number) Coordination of Nutrition Care: Continue to monitor while inpatient Goals: Goals: Initiate PO diet, within 2 days Nutrition Monitoring and Evaluation: Behavioral-Environmental Outcomes: Knowledge or Skill Food/Nutrient Intake Outcomes: Diet Advancement/Tolerance, Food and Nutrient Intake, Supplement Intake Physical Signs/Symptoms Outcomes: Biochemical Data, GI Status, Nausea or Vomiting, Fluid Status or Edema, Nutrition Focused Physical Findings, Skin, Weight Discharge Planning: Too soon to determine Ilsa Oconnor RD, LD Contact: *[phone] or via [employer] chat Images from the original note were not included. PHYSICAL THERAPY [facility] Treatment Note Name/MRN: Regan Coughlin ([id number]) Date of : 1960 Age: 63 y.o. Room/Bed: T1-105/T1-105 A Discharge Recommendation: Home with Assist PRN and Outpatient PT (cardiac rehab) Equipment Needed: TBD Prior Level of Function ADL Assistance: Independent Ambulation Assistance: Independent Transfer Assistance: Independent Patient reports his brother does not work but does have chronic back pain which limits him. Patient is typically indep with all IADLs, ADLs and mobility without a device. Assessment Pt SBA for transfer, gait, balance. Occasional cues for sternal precautions. Tolerated P&C exercises well. No LOB. Rec home with assist upon discharge. Subjective Pt reclined in chair, agreeable to PT. Pain: Pt denies any current pain. Medical Precautions: No active isolations Proper PPE donned/doffed in accordance with facility standards. Fall Risk: [place] Fall Risk Score: 45 (High Risk) Precautions/Restrictions: Sternal Precautions: No Pushing, No Pulling, No Lifting Greater Than 10 lbs Lines/Drains/Airways: PIV, telemetry, CT x1, external pacer Family/Caregiver Present: none Objective Ambulation Ambulation 1 Assistive device(s) used: none Assist level: SBA Distance (ft): 800ft Quality of gait: No LOB, slow drew Transfers/Mobility Sit to stand: SBA Stand to sit: SBA X1 from chair, occasional cues for sternal precautions. Device(s) used: none Exercises Exercises Upper Extremity: P&C ex #1-9 all x 10 reps each Other exercises Other exercises?: Yes Other exercises 1: I.S. x 10 reps, 1,000mL Balance: standing with functional reaching, no LOB, SBA for balance. Plan Continue acute PT per plan of care. Safety/Education Safety Safety Devices in place: call light within reach and left in chair Restraints: No Education Education Given To: patient Education Provided: Home Exercise Program, Precautions, Discharge Recommendations, and Breathing Techniques Education Method: Verbal Barriers to Learning: None Education Outcome: Verbalized Understanding Outcome Measures AM-PAC AM-PAC Inpatient Mobility Raw Score (No Stairs) : 20 JH-HLM JH-HLM Score: Walked 250 ft or more (i.e. several laps on unit) Goals Patient Stated Goal: To go home Encounter Problems Encounter Problems (Active) Cardiac Patient will perform bed mobility with modified independence in order to improve independence and prepare for out of bed mobility. (Not Addressed) Start: 03/26/23 Expected End: 12/14/23 Patient will complete sit to stand transfer with modified independence in order to improve safety and prepare for out of bed mobility. (Progressing) Start: 03/26/23 Expected End: 04/09/23 Patient will ambulate 400 feet or ambulate 5 minutes with modified independence with RPE of 14 or lower. (Progressing) Start: 03/26/23 Expected End: 04/09/23 Patient will ascend and descend flight of stairs with modified independence and rail for balance only. (Not Addressed) Start: 03/26/23 Expected End: 04/09/23 Patient will be independent with P&C exercises. (Progressing) Start: 03/26/23 Expected End: 04/09/23 Patient will be independent with managing secretions and home walking program. (Progressing) Start: 03/26/23 Expected End: 04/09/23 Pain - Adult Therapy Time Individual Co-treatment Time In 1105 Time Out 1128 Minutes 23 Timed Code Treatment Minutes: 23 Minutes (gait; tp) Nils Barker PTA Images from the original note were not included. OCCUPATIONAL THERAPY [facility] Treatment Note Name/MRN: Regan Coughlin ([id number]) Date of : 1960 Age: 63 y.o. Room/Bed: T1-105/T1-105 A Discharge Recommendation: Inpatient Rehab Equipment Needed: TBD at next level of care Prior Level of Function ADL Assistance: Independent Ambulation Assistance: Independent Transfer Assistance: Independent Assessment Pt required Max assist for LB dressing and toileting, Min A for ambulation/transfers. Pt is below baseline, able to tolerate 3 hours per day of intensive therapy. OT recommends IPR at discharge. Subjective Upon arrival, pt in recliner with RN present; both agreeable to OT services. Pain: RN managing pain. Medical Precautions: No active isolations Proper PPE donned/doffed in accordance with facility standards. Fall Risk: [place] Fall Risk Score: 35 (Medium Risk) Precautions/Restrictions: Sternal Precautions: No Pushing, No Pulling, No Lifting Greater Than 10 lbs Lines/Drains/Airways: PIV, telemetry, RA Family/Caregiver Present: none Objective ADLs Grooming: SBA, statically standing at sink to complete facial and hand hygiene, oral care, grooming of hair. Pt used sink for stabilizing self. UE Bathing: SBA, statically standing at sink as per above LE Dressing: Max Assist, doff/don bilateral socks. Toileting: Max Assist, assist w/posterior hygiene and pulling pants up in back. Extra time required. Adaptive Equipment: educated on bsc as riser,fww use Decreased functional activity tolerance; quick fatigue. Transfers/Mobility Sit to stand: Min Assist, elevation/balance; fww used Stand to sit: Min Assist, Controlled descent Toilet: Min Assist, elevation/balance; cues for sternal precautions Standing balance: SBA, Contact Guard Functional mobility: Min Assist, assist w/fww mgmt; chest tube and IV pole Cues for sternal precautions with each transfer. Device(s) used: front wheeled walker and hospital bed Plan Continue acute OT per plan of care. Safety/Education Safety Safety Devices in place: All fall risk precautions in place, call light within reach, left in chair, gait belt, patient at risk for falls, nurse notified, and no alarms engaged upon entry Restraints: No Education Education Given To: patient Education Provided: OT Role, Plan of Care, Precautions, ADL Adaptive Strategies, Transfer Training, Energy Conservation, Equipment, Fall Prevention Education, Discharge Recommendations, Benefits of Increasing Activity, and Breathing Techniques Education Method: Verbal, Demonstration, Teach Back, and Pt required assist to recall sternal precautions Barriers to Learning: None Education Outcome: Verbalized Understanding and Continued Education Needed AM-PAC AM-PAC Inpatient Daily Activity Raw Score: 19 ADL Inpatient CMS G-Code Modifier: CK Goals Patient Stated Goal: To get stronger Encounter Problems Encounter Problems (Active) Balance Patient will maintain dynamic standing balance for 5-7 minutes with supervision in order to demonstrate decreased risk of falling. (Progressing) Start: 03/30/23 Expected End: 04/27/23 Bathing Patient will utilize adaptive techniques to bathe body with supervision (Not Addressed) Start: 03/30/23 Expected End: 04/27/23 Safety Patient will recall/demonstrate weight bearing and/or ROM restrictions with all functional mobility in order to promote healing and safety with functional tasks. (Progressing) Start: 03/30/23 Expected End: 04/27/23 Toileting Patient will complete toileting tasks at standard toilet with modified independence (Progressing) Start: 03/30/23 Expected End: 04/27/23 Transfers Patient will complete functional transfer with least restrictive device with modified independence in order to prepare for ambulation. (Progressing) Start: 03/30/23 Expected End: 04/27/23 Therapy Time Individual Co-treatment Time In 0830 Time Out 0910 Minutes 40 Timed Code Treatment Minutes: 40 Minutes (2 self 1 act) COMFORT Abad Images from the original note were not included. Cardiothoracic Surgery/[facility] Progress Note PATIENT NAME: Regan Coughlin DATE: 03/31/23 HPI: 63 yo male with PMH of CAD & STEMI s/p PCI (RCA in 2019), Afib (on Eliquis), AAA s/p fenestrated EVAR with RTOR for bilateral groin hematomas, hematuria, HTN, HPL, ETOH, current smoker. He presented to OSH ED on 01/07/23 with worsening SOB x3 weeks. Echo shoed LVEF 50% with wall motion abnormalities. He did develop Afib RVR during hospitalization and reverted back to SR. Had a heart cath on 02/16/23 which showed multivessel CAD involving LM, prox LAD, and RCA. Surgery/Procedure: 03/25/23: CABG x4, MAZE, LAAL with atriclip, and LLE EVH with Dr. Villarreal Interval History: 03/31/23, POD# 6: Went into Afib RVR overnight, started on Amio, reverted to SR with conversion bradycardic/junctional beats. Afebrile, on RA. Right thoracentesis yesterday with 350 mL removed. Resting in chair, no acute complaints this am. Discussed importance of continuing to increase activity. Review of Systems Constitutional: Positive for activity change and fatigue. Negative for appetite change, diaphoresis and fever. Respiratory: Negative for cough, shortness of breath and wheezing. Cardiovascular: Negative for chest pain, palpitations and leg swelling. Gastrointestinal: Negative for abdominal distention, constipation and diarrhea. Skin: Negative for color change, pallor and rash. Objective: CT output cc/24hrs: 340 mL UO cc/24hrs: 2,525 mL Last BM Date: 03/30/23 Vitals: BP: 104/58, MAP (mmHg): 73, BP Method: Automatic Heart Rate: 73 Resp: 17 Temp: 37.2 C (98.9 F), Temp Source: Oral BMI (Calculated): 22.06 CXR: BMP: Recent Labs 03/29/23 0011 03/30/23 0350 03/31/23 0517 NA 138 135 132* K 3.1* 3.5 3.4* CL 103 102 100 CO2 26 26 24 BUN 37* 31* 32* CREATININE 1.08 1.05 1.14 CALCIUM 8.4 8.4 8.9 MG 2.2 2.2 2.3 CBC: Recent Labs 03/29/23 0011 03/30/23 0350 03/31/23 05 WBC 10.7 8.8 8.7 HGB 9.6* 9.6* 10.2* HCT 27.8* 28.3* 29.7* PLT 140 171 191 MCV 93.3 94.2 93.6 RDW 14.8* 14.6* 14.6* INR: Recent Labs 03/30/23 035 INR 1.2* Physical Exam Cardiovascular: Rate and Rhythm: Normal rate and regular rhythm. Heart sounds: Normal heart sounds. No murmur heard. No friction rub. Pulmonary: Effort: Pulmonary effort is normal. Breath sounds: Examination of the right-lower field reveals decreased breath sounds. Decreased breath sounds present. Musculoskeletal: Right lower leg: No edema. Left lower leg: No edema. Skin: General: Skin is warm and dry. Capillary Refill: Capillary refill takes less than 2 seconds. Findings: Bruising and ecchymosis present. Comments: Surgical Incisions: well approximate; clean dry with no drainage noted. Surrounding skin no redness, warmth, or signs of infection noted. Neurological: Mental Status: He is alert. Psychiatric: Behavior: Behavior is cooperative. Assessment: CAD s/p CABGx4 03/25 Afib (on Eliquis) s/p MAZE 03/25 AAA s/p fenestrated EVAR HTN HPL ETOH Right effusion Current smoker Hx. Hematuria Hx. Stent to RCA in 2019 Post operative Pulm Management: Normal Post-operative Course Acute blood loss anemia/consumptive thrombocytopenia Plan: Patient Status: Telemetry Continue current med regimen ASA/Statin BB- Metoprolol 25mg BID CCB & Hydralazine Remeron HS Folate & thiamine Start PO amio, stop IV gtt Decrease Lasix to 40mg IVP daily Will need home Eliquis resumed prior to d/c Continue CT-> water seal Endocrine signed off- OP f/u with PCP PT/OT: Home with Assist PRN and Outpatient PT Pulmonary hygiene: IS and Acapella GI prophy: PO protonix DVT prophy:TEDs, SCDs, and Heparin gtt Disposition: TBD Central Line: [x]Yes [] No Arterial Line: []Yes [x] No Ramirez: []Yes [x] No Restraints: []Yes [x] No Patient discussed and plan of day developed from multidisciplinary rounds between Cardiothoracic Surgery (Cardiothoracic Surgeon, GEOVANNY) and Critical Care Attending Cardiac Core Medications: ASA, Statin, and BB EF: 03/25 - normal Blood Conservation: transfuse postop Railway Signalling Engineer: Dr. Matt Cherry Images from the original note were not included. OCCUPATIONAL THERAPY [facility] Initial Evaluation Name/MRN: Regan Coughlin ([id number]) Evaluation Date: 03/30/2023 Date of : 1960 Admission Date: 03/25/2023 5:54 AM Age: 63 y.o. Room/Bed: T1-105/T1-105 A Discharge Recommendation: Inpatient Rehab Equipment Needed: TBD at next level of care Assessment IMPRESSION: Pt is a 63 y/o male admitted for CAD in [place] artery. CABG x 4 completed 03/25. Pt previously lived at home with brother and was ind in all ADL's and ambulation without a device. Pt currently requires CGA-supervision for most ADL's and for ambulation with rollator. Pt with difficulty maintaining precautions throughout session. Recommend Pt discharge to [facility] to continue to maximize independence in ADL's and ambulation. Performance Deficits /Impairments: Decreased Functional Mobility, Decreased ADL status, Decreased ROM, Decreased Strength, Decreased Endurance, Decreased Balance, and Decreased High Level IADLs Prognosis: Good Decision Making: Low Complexity Subjective Pt was supine in bed at beginning of session. S/OT introduced self and discussed purpose of OT evaluation. Pt agreeable to services. Pain: Pt denies any current pain. Past Medical History: Past Medical History: Diagnosis Date AAA (abdominal aortic aneurysm) (HCC) Afib (CMS/HCC) (HCC) Coronary artery disease 2019 2x stents, Dr. Eulalio Gutierrez at [facility] TIA (transient ischemic attack) Past Surgical History: Past Surgical History: Procedure Laterality Date CORONARY STENT PLACEMENT 02/2020 x2 IR ANGIOGRAM ENDOVASCULAR AORTIC REPAIR 05/20/2022 OPEN FEMORAL ARTERY EXPOSURE FOR DELIVERY OF ENDOVASCULAR PROSTHESIS OTHER SURGICAL HISTORY Bilateral 05/20/2022 Exploration groin, evacuation of hematoma WISDOM TOOTH EXTRACTION Admission Diagnosis: Patient Active Problem List Diagnosis Date Noted CAD in [place] artery 03/25/2023 Abdominal aortic aneurysm, without rupture, unspecified ([facility]) 05/19/2022 Infrarenal 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 ([facility]) 04/07/2022 Medical Precautions: No active isolations Proper PPE donned/doffed in accordance with facility standards. Fall Risk: [place] Fall Risk Score: 50 (High Risk) Precautions/Restrictions: Sternal Precautions: No Pushing, No Pulling, No Lifting Greater Than 10 lbs Lines/Drains/Airways: PIV, telemetry, continuous O2 Family/Caregiver Present: none Overall Cognitive Status: Exceptions - Safety judgement: decreased awareness of need for assistance and decreased awareness of need for safety - Sequencing: requires cues for some Overall Orientation Status: Oriented x4 Social/Functional History Patient admitted from home. Lives With: Other (brother) - Brother is tank truck mechanic and could be gone for up to 6 hours at a time. Brother also has back problems and cannot offer assistance Type of Home: single family home Home Layout: Single Level Home Home Access: Stairs to Enter with Rails (# of stairs: 15) Bathroom Shower/Tub: Tub/Shower Combo Toilet: Standard Home Equipment: none Homemaking Responsibilities: Independent Receives Help From: None Active Production Line Worker: Yes Prior Level of Function ADL Assistance: Independent Ambulation Assistance: Independent Transfer Assistance: Independent Objective ADLs Grooming: Supervision to wash hands while standing at sink UE Dressing: Contact Guard to don/doff [facility] gown sitting EOB. Pt with difficulty maintaining precautions - required verbal cues. LE Dressing: Supervision to don/doff socks while sitting EOB using figure - 4 method Toileting: Contact Guard to complete anna and posterior hygiene. Pt able to manage clothing with supervision and clean posterior after BM with CGA. Upper Extremity Assessment AROM: Unable to fully assess due to precautions but WFL PROM: Unable to fully assess due to precautions but WFL Strength: Unable to fully assess due to precautions but WFL Vision: wears glasses for reading and and are NOT being used during the eval Hearing: normal Bed Mobility Supine to sit: Supervision Pt able to transfer from supine to sitting EOB with supervision. Good control of trunk and LE noted. HOB elevated and bed rails not utilized to maintain precautions. Transfers/Functional Mobility Sit to stand: Contact Guard Stand to sit: Contact Guard Toilet: Contact Guard Functional mobility: Supervision Pt stood from bed with CGA and ambulated to bathroom using rollator. Pt transferred on/off toilet without use of grab bar using CGA for increased support. Pt ambulated back to bed with supervision and sat with CGA. Good control of descent. No LOB noted throughout ambulation Device(s) used: rollator AM-PAC AM-PAC Inpatient Daily Activity Raw Score: 22 ADL Inpatient CMS G-Code Modifier: CJ Plan Pt would benefit from skilled acute OT services to address Strengthening, ROM, Balance Training, Functional Mobility Training, Endurance Training, Equipment Evaluation/Education, Self-Care/ADL Training, and Home Management Training. Frequency: 3x/week for 4 weeks Barriers: Limited family support, New weightbearing/ROM restrictions, Decreased endurance, Upper extremity weakness, Lower extremity weakness, and Long standing deficits Prognosis: good Safety/Education Safety Safety Devices in place: All fall risk precautions in place, call light within reach, nurse notified, and patient left sitting EOB Restraints: No Education Education Given To: patient Education Provided: OT Role, Plan of Care, and Discharge Recommendations Education Method: Verbal Barriers to Learning: None Education Outcome: Verbalized Understanding Goals Patient Stated Goal: To get stronger Encounter Problems Encounter Problems (Active) Balance Patient will maintain dynamic standing balance for 5-7 minutes with supervision in order to demonstrate decreased risk of falling. Start: 03/30/23 Expected End: 04/27/23 Bathing Patient will utilize adaptive techniques to bathe body with supervision Start: 12/04/23 Expected End: 04/27/23 Safety Patient will recall/demonstrate weight bearing and/or ROM restrictions with all functional mobility in order to promote healing and safety with functional tasks. Start: 03/30/23 Expected End: 04/27/23 Toileting Patient will complete toileting tasks at standard toilet with modified independence Start: 03/30/23 Expected End: 04/27/23 Transfers Patient will complete functional transfer with least restrictive device with modified independence in order to prepare for ambulation. Start: 03/30/23 Expected End: 04/27/23 Therapy Time Individual Co-treatment Time In 1139 Time Out 1208 Minutes 29 Timed Code Treatment Minutes: 12 Minutes (Self care - 1) Eleanor Taylor; S/OT Patient's Occupational Therapy Plan of Care supervision is transferred to a [facility] Therapy Services Occupational Therapist. Goals and/or treatment plan was established in collaboration with patient/family/other representatives. Images from the original note were not included. PHYSICAL THERAPY [facility] Treatment Note Name/MRN: Regan Coughlin ([id number]) Date of : 1960 Age: 63 y.o. Room/Bed: T1-105/T1-105 A Discharge Recommendation: Home with Assist PRN and Outpatient PT (cardiac rehab) Equipment Needed: TBD Prior Level of Function ADL Assistance: Independent Ambulation Assistance: Independent Transfer Assistance: Independent Patient reports his brother does not work but does have chronic back pain which limits him. Patient is typically indep with all IADLs, ADLs and mobility without a device. Assessment Pt min assist for transfer, CGA for gait. Increase time. No LOB when ambulating. Reviewed P&C exercises with patient. Anticipate home with assist upon discharge. Subjective Pt in chair, agreeable to PT. Pain: Pt denies any current pain. Medical Precautions: No active isolations Proper PPE donned/doffed in accordance with facility standards. Fall Risk: [place] Fall Risk Score: 50 (High Risk) Precautions/Restrictions: Sternal Precautions: no lifting more than 10lbs, modified UE precautions with move in the tube Lines/Drains/Airways: tele, continuous pulse ox, chest tube, 2L O2 NC, introducer R IJ Family/Caregiver Present: none Objective Ambulation Ambulation 1 Assistive device(s) used: nezzie Assist level: Contact Guard Distance (ft): 400ft Quality of gait: uneven step length, slow drew Transfers/Mobility Sit to stand: Min Assist Stand to sit: Min Assist X1 from chair. Cues for sternal precautions. Device(s) used: nezzie Exercises Exercises Upper Extremity: P&C ex #1-9 all x 10 reps each Balance: standing with nezzie, no c/o dizziness or LOB, SBA for balance. Plan Continue acute PT per plan of care. Safety/Education Safety Safety Devices in place: call light within reach, left in chair, and chair alarm in place Restraints: No Education Education Given To: patient Education Provided: Gait Training, Plan of Care, Home Exercise Program, Precautions, Transfer Training, Fall Prevention Education, Discharge Recommendations, and Benefits of Increasing Activity Education Method: Verbal Barriers to Learning: None Education Outcome: Verbalized Understanding Outcome Measures AM-PAC AM-PAC Inpatient Mobility Raw Score (No Stairs) : 15 JH-HLM -M Score: Walked 250 ft or more (i.e. several laps on unit) Goals Patient Stated Goal: To have less pain Encounter Problems Encounter Problems (Active) Cardiac Patient will perform bed mobility with modified independence in order to improve independence and prepare for out of bed mobility. (Not Addressed) Start: 03/26/23 Expected End: 04/09/23 Patient will complete sit to stand transfer with modified independence in order to improve safety and prepare for out of bed mobility. (Progressing) Start: 03/26/23 Expected End: 04/09/23 Patient will ambulate 400 feet or ambulate 5 minutes with modified independence with RPE of 14 or lower. (Progressing) Start: 03/26/23 Expected End: 04/09/23 Patient will ascend and descend flight of stairs with modified independence and rail for balance only. (Not Addressed) Start: 03/26/23 Expected End: 04/09/23 Patient will be independent with P&C exercises. (Progressing) Start: 03/26/23 Expected End: 04/09/23 Patient will be independent with managing secretions and home walking program. (Progressing) Start: 03/26/23 Expected End: 04/09/23 Pain - Adult Therapy Time Individual Co-treatment Time In 0843 Time Out 0902 Minutes 19 Timed Code Treatment Minutes: 19 Minutes (gait) Nils Barker, BEVEL MILL OPERATOR Images from the original note were not included. Cardiothoracic Surgery/[facility] Progress Note PATIENT NAME: Regan Coughlin DATE: 03/30/23 HPI: 63 yo male with PMH of CAD & STEMI s/p PCI (RCA in 2019), Afib (on Eliquis), AAA s/p fenestrated EVAR with RTOR for bilateral groin hematomas, hematuria, HTN, HPL, ETOH, current smoker. He presented to OSH ED on 01/07/23 with worsening SOB x3 weeks. Echo shoed LVEF 50% with wall motion abnormalities. He did develop Afib RVR during hospitalization and reverted back to SR. Had a heart cath on 02/16/23 which showed multivessel CAD involving LM, prox LAD, and RCA. Surgery/Procedure: 03/25/23: CABG x4, MAZE, LAAL with atriclip, and LLE EVH with Dr. Villarreal Interval History: 03/30/23, POD# 5: VSS overnight, 2L NC. Had short episode of Afib overnight, self converted to NSR. More alert today, slept well overnight. Review of Systems Constitutional: Positive for activity change and fatigue. Negative for diaphoresis and fever. Respiratory: Negative for cough, shortness of breath and wheezing. Cardiovascular: Negative for chest pain, palpitations and leg swelling. Gastrointestinal: Negative for abdominal distention, constipation and diarrhea. Skin: Negative for color change, pallor and rash. Objective: CT output cc/24hrs: 300 mL UO cc/24hrs: 3,800 mL Last BM Date: 03/29/23 Vitals: BP: 91/62, MAP (mmHg): 73, BP Method: Automatic Heart Rate: 87 Resp: 14 Temp: 37.4 C (99.3 F), Temp Source: Bladder BMI (Calculated): 22.78 CXR: BMP: Recent Labs 03/28/23 0412 03/28/23 1827 03/29/23 0011 03/30/23 0350 NA 136 136 138 135 K 3.7 3.3* 3.1* 3.5 CL 104 104 103 102 CO2 22 25 26 26 BUN 32* 33* 37* 31* CREATININE 1.00 1.03 1.08 1.05 CALCIUM 8.9 8.7 8.4 8.4 MG 2.3 -- 2.2 2.2 CBC: Recent Labs 03/28/23 0412 03/28/23 0413 03/29/23 0011 03/30/23 0350 WBC 15.4* -- 10.7 8.8 HGB 9.3* 9.9 9.6* 9.6* HCT 27.3* -- 27.8* 28.3* PLT 138* -- 140 171 MCV 93.2 -- 93.3 94.2 RDW 15.2* -- 14.8* 14.6* INR: Recent Labs 03/30/23 0350 INR 1.2* Physical Exam Cardiovascular: Rate and Rhythm: Normal rate and regular rhythm. Heart sounds: Normal heart sounds. No murmur heard. No friction rub. Pulmonary: Effort: Pulmonary effort is normal. Breath sounds: Examination of the right-lower field reveals decreased breath sounds. Decreased breath sounds present. Musculoskeletal: Right lower leg: No edema. Left lower leg: No edema. Skin: General: Skin is warm and dry. Capillary Refill: Capillary refill takes less than 2 seconds. Findings: Bruising and ecchymosis present. Comments: Surgical Incisions: well approximate; clean dry with no drainage noted. Surrounding skin no redness, warmth, or signs of infection noted. Neurological: Mental Status: He is alert. Psychiatric: Behavior: Behavior is cooperative. Assessment: CAD s/p CABGx4 03/25 Afib (on Eliquis) s/p MAZE 03/25 AAA s/p fenestrated EVAR HTN HPL ETOH Right effusion Current smoker Hx. Hematuria Hx. Stent to RCA in 2019 Post operative Pulm Management: Normal Post-operative Course Acute blood loss anemia/consumptive thrombocytopenia Plan: Patient Status: Telemetry Continue current med regimen ASA/Statin BB- Metoprolol 25mg BID CCB & Hydralazine Lasix 40mg IV BID Folate & thiamine D/C CIWA protocol Add Remeron HS IR thoracentesis today Endocrine signed off- OP f/u with PCP PT/OT: Home with Assist PRN and Outpatient PT Pulmonary hygiene: IS and Acapella GI prophy: PO protonix DVT prophy:TEDs, SCDs, and Heparin gtt Disposition: TBD Central Line: [x]Yes [] No Arterial Line: []Yes [x] No Ramirez: []Yes [x] No Restraints: []Yes [x] No Patient discussed and plan of day developed from multidisciplinary rounds between Cardiothoracic Surgery (Cardiothoracic Surgeon, GEOVANNY) and Critical Care Attending Cardiac Core Medications: ASA, Statin, and BB EF: 03/25 - normal Blood Conservation: transfuse postop Railway Signalling Engineer: Dr. Matt Cherry Images from the original note were not included. PHYSICAL THERAPY [facility] Treatment Note Name/MRN: Regan Coughlin ([id number]) Date of : 1960 Age: 63 y.o. Room/Bed: T1-105/T1-105 A Discharge Recommendation: IP Rehab Equipment Needed: TBD Prior Level of Function ADL Assistance: Independent Ambulation Assistance: Independent Transfer Assistance: Independent Patient reports his brother does not work but does have chronic back pain which limits him. Patient is typically indep with all IADLs, ADLs and mobility without a device. Assessment Pt ambulated 50 + 10+ 40 ft with Nezzie, requiring 3 rest breaks. Min A required for all mobility this session. Pt unable to recall nor demonstrate modified sternal precautions. Visual cuing required for learning. Discharge recommendations changed to IP Rehab. Subjective Spoke with RN who states pt may be a little out of it, but could attempt PT. Pt in chair with sitter in room and agreeable to therapy. Doughnut Icer Machine present in room. Pain: Pt denies any current pain. Medical Precautions: No active isolations Proper PPE donned/doffed in accordance with facility standards. Fall Risk: Monzon Fall Risk Score: 50 (High Risk) Precautions/Restrictions: Sternal Precautions: no lifting more than 10lbs, modified UE precautions with move in the tube Lines/Drains/Airways: tele, continuous pulse ox, chest tube, ramirez, 4L O2 NC, introducer R IJ, art line RUE Sitter Overall Cognitive Status: Exceptions - Following commands: follows one step commands with increased time and inconsistently follows commands - Attention span: difficulty attending to directions and difficulty dividing attention - Memory: decreased recall of precautions - Safety judgement: decreased awareness of need for assistance - Problem solving: assistance required to identify errors made and assistance required to correct errors made - Insights: decreased awareness of deficits - Initiation: requires cues for some - Sequencing: requires cues for some Overall Orientation Status: Oriented to Person Family/Caregiver Present: none Objective Ambulation Ambulation 1 Assistive device(s) used: Nezzie Assist level: Min Assist Distance (ft): 50 + 10 + 40 with 3 rest breaks Quality of gait: shuffling, slow drew, path deviations Transfers/Mobility Sit to stand: Min Assist Stand to sit: Min Assist Device(s) used: Nezzie Exercises Exercises Upper Extremity: P&C ex #1-7 x 5 reps eac Comments: Pt limited by decrease endurance, SOBOE Plan Continue acute PT per plan of care. Safety/Education Safety Safety Devices in place: left in chair, patient at risk for falls, nurse notified, no alarms engaged upon entry, and residential tech present Restraints: No Education Education Given To: patient Education Provided: PT Role, PT Goals, Gait Training, and Plan of Care Education Method: Verbal Barriers to Learning: Cognition Education Outcome: Verbalized Understanding Outcome Measures AM-PAC AM-PAC Inpatient Mobility Raw Score (No Stairs) : 15 JH-HLM JH-HLM Score: Walked 25 ft or more (i.e. walked outside of room) Goals Patient Stated Goal: To have less pain Encounter Problems Encounter Problems (Active) Cardiac Patient will perform bed mobility with modified independence in order to improve independence and prepare for out of bed mobility. (Not Addressed) Start: 03/26/23 Expected End: 04/09/23 Patient will complete sit to stand transfer with modified independence in order to improve safety and prepare for out of bed mobility. (Progressing) Start: 03/26/23 Expected End: 04/09/23 Patient will ambulate 400 feet or ambulate 5 minutes with modified independence with RPE of 14 or lower. (Progressing) Start: 03/26/23 Expected End: 04/09/23 Patient will ascend and descend flight of stairs with modified independence and rail for balance only. (Not Addressed) Start: 03/26/23 Expected End: 04/09/23 Patient will be independent with P&C exercises. (Progressing) Start: 03/26/23 Expected End: 04/09/23 Patient will be independent with managing secretions and home walking program. (Progressing) Start: 03/26/23 Expected End: 04/09/23 Pain - Adult Therapy Time Individual Co-treatment Time In 1058 Time Out 1127 Minutes 29 Lakisha Hathaway [facility] Respiratory Care Department Progress Note As part of the Respiratory Assessment Program (RAP), the following Respiratory Therapist evaluation has been completed, including a chart review and clinical/physical assessment. Respiratory Therapist RAP Evaluation Guideline Points 0 1 2 3 4 Points Strongly Consider History Factor No Pulmonary conditions Stable Pulmonary condition(s) Surgery or Intervention that may impact Pulmonary system (at risk) Surgery or Intervention that is impacting Pulmonary system Active Exacerbation of Pulmonary Condition 1 Respiratory Pattern Regular, RR= 12-18 MARIO or Increased RR= 19-24 Irregular, or RR= 25-30 SOB, talk in short sentences, or RR= 31-35 Severe SOB, accessory muscle use, one word answers, or RR>35 0 Aerosol Med(s), High Flow O2 Breath Sounds Clear Diminished in 1 lobe Diminished in ? 2 lobes Adventitious breath sounds Coarse crackles, Wheezes, or Diminished in >2 lobes 2 Aerosol Med(s), Bronchial Hygiene, Hyperinflation Cough & Sputum Strong cough, no secretion retention or production Weak cough, no secretion retention or production Weak cough, w/ production (less often than Q2hr), or secretion retention No cough, w/ secretion retention or production (less often than Q2hr) Significant secretion production (more often than Q2hr) or mucus plug 1 Aerosol Med(s), Bronchial Hygiene, Hyperinflation Level of Activity Ambulatory Ambulatory with Assist Up in chair or edge of bed (dangle) Non-ambulatory, bedridden with active ROM Completely paralyzed or without active ROM 1 Triage 5 0-2 Triage 4 3-5 Triage 3 6-10 Triage 2 11-14 Triage 1 ?15 Total 5 Triage Score = 4 TRIAGE SCORING - SUGGESTED FREQUENCIES Aerosol Therapy Bronchial Hygiene Hyperinflation Triage Score Q4h & PRN 1 Q4hWA (QID) & PRN 2 TID & PRN 3 BID & PRN 4 PRN 5 Therapy(s) Indicated Yes/No Aerosol Medication y Hyperinflation Bronchial Hygiene High Flow Oxygen Flow Rates PEF (L/Sec) IVC FVC FEV1 FEV1/FVC Patient instructed and returned demonstration on use of MDI (with spacer, as appropriate) NO RT to enter/modify frequency of treatment order in EMR/EHR to match this RAP evaluation. Based on this RAP evaluation the following therapy is being initiated: Duoneb HHN At the following frequency: BID Comments: Thank you for involving Respiratory in the care of this patient, Images from the original note were not included. Cardiothoracic Surgery Interval Note PATIENT NAME: Regan Coughlin : 1960 (63 y.o.) TODAY'S DATE: 03/29/2023 Interval History: Check POCUS of right ~2cm noted at one level - discussed with CCM; plan IR thora tomorrow Images from the original note were not included. Cardiothoracic Surgery/CCM Progress Note PATIENT NAME: Regan Coughlin DATE: 03/29/23 HPI: 63 yo male with PMH of CAD & STEMI s/p PCI (RCA in 2019), Afib (on Eliquis), AAA s/p fenestrated EVAR with RTOR for bilateral groin hematomas, hematuria, HTN, HPL, ETOH, current smoker. He presented to OSH ED on 01/07/23 with worsening SOB x3 weeks. Echo shoed LVEF 50% with wall motion abnormalities. He did develop Afib RVR during hospitalization and reverted back to SR. Had a heart cath on 02/16/23 which showed multivessel CAD involving LM, prox LAD, and RCA. Surgery/Procedure: 03/25/23: CABG x4, MAZE, LAAL with atriclip, and LLE EVH with Dr. Villarreal Interval History: 03/29/23, POD# 4: mildly confused reoriented; precedex weaned off - was able to sleep last night. Sitter in room: no acute issues on 2L NC. Not eating much. Drinking lots of fluid. Walking daley this morning ~150 feet and back to room. Review of Systems Constitutional: Negative for diaphoresis, fatigue and fever. Respiratory: Negative for cough, shortness of breath and wheezing. Cardiovascular: Negative for chest pain, palpitations and leg swelling. Gastrointestinal: Negative for abdominal distention, constipation and diarrhea. Skin: Negative for color change, pallor and rash. Psychiatric/Behavioral: Positive for confusion. Objective: CT output cc/24hrs: 3225 UO cc/24hrs: 380 Last BM Date: 03/28/23 Vitals: BP: 119/64, MAP (mmHg): 81, BP Method: Automatic Heart Rate: 75 Resp: 15 Temp: 37.2 C (99 F), Temp Source: Bladder BMI (Calculated): 25.95 ABG Recent Labs 03/27/23204903/28/23 041 PHART 7.522* 7.506* [id number] 29.6* 31.8* PO2ART 63.1* 68.8* [id number] 23.7 24.6 [id number] 92.1* 94.1* BEART 1.5 1.8 Pacer Wires: V wires CXR: BMP: Recent Labs 03/27/2323303/27/23 1226 03/28/23 0412 03/28/23 1827 03/29/23 0011 NA -- < > 136 136 138 K -- < > 3.7 3.3* 3.1* CL -- < > 104 104 103 CO2 -- < > 22 25 26 BUN -- < > 32* 33* 37* CREATININE -- < > 1.00 1.03 1.08 CALCIUM -- < > 8.9 8.7 8.4 MG 2.4* -- 2.3 -- 2.2 < > = values in this interval not displayed. CBC: Recent Labs 03/27/2323303/27/23 1226 03/27/23204903/28/23 0412 03/28/23 0413 03/29/23 0011 WBC 13.0* -- -- 15.4* -- 10.7 HGB 6.4* 9.1* < > 9.3* 9.9 9.6* HCT 18.9* 27.1* -- 27.3* -- 27.8* PLT 109* -- -- 138* -- 140 MCV 93.7 -- -- 93.2 -- 93.3 RDW 14.4 -- -- 15.2* -- 14.8* < > = values in this interval not displayed. INR: Recent Labs 03/27/23 0234 INR 1.6* Physical Exam Cardiovascular: Rate and Rhythm: Normal rate and regular rhythm. Heart sounds: Normal heart sounds. No murmur heard. No friction rub. Pulmonary: Effort: Pulmonary effort is normal. Breath sounds: Examination of the right-lower field reveals decreased breath sounds. Decreased breath sounds present. Skin: General: Skin is warm and dry. Capillary Refill: Capillary refill takes less than 2 seconds. Findings: Bruising and ecchymosis present. Neurological: Mental Status: He is alert. Psychiatric: Behavior: Behavior is cooperative. Assessment: CAD s/p CABGx4 03/25 Afib (on Eliquis) s/p MAZE 03/25 AAA s/p fenestrated EVAR HTN HPL ETOH Right effusion Current smoker Hx. Hematuria Hx. Stent to RCA in 2019 Post operative Pulm Management: Normal Post-operative Course Acute blood loss anemia/consumptive thrombocytopenia Plan: Patient Status: Telemetry Medications: Continue ASA statin, ccb, bb, hydral Continue IV diuretics 40mg BID + daily replacement Folate and Thiamine Ativan as needed GI prophy: PO protonix DVT prophy: Heparin SubQ Bowel: senna/miralax Interventions: POCUS of right checked 03/27 - recheck today Pulmonary hygiene: IS and Acapella Paulina Baer Lines/Drains: -CVC: 03/25 RIJ -Ramriez: 03/25 - maintain today -Chest tubes: waterseal Restraints: []Yes [x] No Consults: Endocrinology signed off D/c recs: OP follow up with PCP Therapies: PT: Home with home assist 03/27 Disposition: TBD Patient discussed and plan of day developed from multidisciplinary rounds between Cardiothoracic Surgery (Cardiothoracic Surgeon, GEOVANNY) and Critical Care Attending Cardiac Core Medications: ASA, Statin, and BB EF: 03/25 - normal Blood Conservation: Transfused postoperatively Railway Signalling Engineer: Dr. Matt Cherry Associated attestation - Mikhail Casillas MD - 03/29/2023 10:09 AM EST I have personally performed a face to face diagnostic evaluation on this patient today on 03/29/23. Labs, imaging studies, and electronic medical record notes on [employer] have been reviewed by me. This note documented and discussed by the []licensed mortgage loan officer []Fellow [x] GEOVANNY reflects my history, exam and medical decision making. I have reviewed and agree with the care plan. Changes were made in the orders as necessary. ROS documentation was reviewed and negative unless otherwise stated in the HPI. My history, exam, assessment and plan are as follows: Time spent for coordination of care: a subsequent visit: 35 minutes (Level II) Off nipride and precedex drips Resp unlabored, less agitated, oriented x 2 Severe CAD 03/25 s/p CABG, AtriClip Alcohol use disorder and withdrawal Pulmonary edema Hx Afib, currently sinus HTN Expected acute blood loss anemia psot op Tobacco and alcohol use Hx AAA, aortoiliac endograft and b/l renal artery stents Wean O2 as tolerated Plan IR guided right thora CIWA with prn ativan, thiamine, folic acid Lasix diuresis On norvasc, hydralazine, metoprolol ASA, statin, b-evelyn Images from the original note were not included. Cardiothoracic Surgery/[facility] Progress Note PATIENT NAME: Regan Coughlin DATE: 03/28/23 HPI: 63 yo male with PMH of CAD & STEMI s/p PCI (RCA in 2019), Afib (on Eliquis), AAA s/p fenestrated EVAR with RTOR for bilateral groin hematomas, hematuria, HTN, HPL, ETOH, current smoker. He presented to OSH ED on 01/07/23 with worsening SOB x3 weeks. Echo shoed LVEF 50% with wall motion abnormalities. He did develop Afib RVR during hospitalization and reverted back to SR. Had a heart cath on 02/16/23 which showed multivessel CAD involving LM, prox LAD, and RCA. Surgery/Procedure: 03/25/23: CABG x4, MAZE, LAAL with atriclip, and LLE EVH with Dr. Villarreal Interval History: 03/28/23, POD# 3: Confused overnight. Dose of ativan given -->improved. EKGs changes noted on tele-will review with surgeon. Responded to diuretics yesterday - 3235cc/24hrs. Hgb stable post transfusion. Still hypertensive and maxed on nipride; wore NIV overnight. On 8L highflow currently. Review of Systems Constitutional: Positive for diaphoresis. Negative for fatigue and fever. Respiratory: Positive for cough (thick de leon secretion). Negative for shortness of breath and wheezing. Cardiovascular: Negative for chest pain, palpitations and leg swelling. Gastrointestinal: Negative for abdominal distention, constipation and diarrhea. Skin: Negative for color change, pallor and rash. Psychiatric/Behavioral: Positive for confusion. Objective: CT output cc/24hrs: 3235 UO cc/24hrs: 605 Last BM Date: 03/28/23 Vitals: BP: 128/63, MAP (mmHg): 82, BP Method: Automatic Heart Rate: 80 Resp: 14 Temp: 37.5 C (99.5 F), Temp Source: Bladder BMI (Calculated): 25.95 ABG Recent Labs 03/25/23 1546 03/27/23 2050 03/28/23 0413 PHART 7.387 7.522* 7.506* [id number] 37.3 29.6* 31.8* PO2ART 75.0* 63.1* 68.8* HAR8EOD 21.9 23.7 24.6 [id number] 94.5* 92.1* 94.1* BEART -2.8 1.5 1.8 Pacer Wires: V wires CXR: BMP: Recent Labs 03/25/23 1113 03/26/23 0413 03/26/23 1155 03/27/23 0234 03/27/23 1226 03/27/23211603/28/23411 NA 137 138 < > -- 133* 136 136 K 3.9 4.6 < > -- 3.5 4.0 3.7 CL 107 105 < > -- 104 103 104 CO2 21* 19* < > -- 22 24 22 BUN 15 24* < > -- 32* 33* 32* CREATININE 1.04 1.46* < > -- 0.99 1.04 1.00 CALCIUM 8.5 8.8 < > -- 8.7 9.4 8.9 MG 3.5* 2.8* -- 2.4* -- -- 2.3 PHOS 4.5 -- -- -- -- -- -- < > = values in this interval not displayed. CBC: Recent Labs 03/26/23 0413 03/27/23 0234 03/27/23122503/27/23204903/28/2341103/28/23412 WBC 9.5 13.0* -- -- 15.4* -- HGB 7.6* 6.4* 9.1* 10.5 9.3* 9.9 HCT 22.6* 18.9* 27.1* -- 27.3* -- PLT 119* 109* -- -- 138* -- MCV 94.0 93.7 -- -- 93.2 -- RDW 14.3 14.4 -- -- 15.2* -- INR: Recent Labs 03/25/23 1113 03/26/2341203/27/23233 INR 1.3* 1.2* 1.6* Physical Exam Cardiovascular: Rate and Rhythm: Normal rate and regular rhythm. Heart sounds: Normal heart sounds. No murmur heard. No friction rub. Pulmonary: Effort: Pulmonary effort is normal. Breath sounds: Examination of the right-lower field reveals decreased breath sounds. Decreased breath sounds present. Skin: General: Skin is warm and dry. Capillary Refill: Capillary refill takes less than 2 seconds. Findings: Bruising and ecchymosis present. Neurological: Mental Status: He is alert. Psychiatric: Behavior: Behavior is cooperative. Assessment: CAD s/p CABGx4 03/25 Afib (on Eliquis) s/p MAZE 03/25 AAA s/p fenestrated EVAR HTN HPL ETOH Right effusion - maintain CTs Current smoker Hx. Hematuria Hx. Stent to RCA in 2019 Post operative Pulm Management: Normal Post-operative Course Acute blood loss anemia/consumptive thrombocytopenia Plan: Patient Status: ICU Medications: Continue ASA statin, ccb, bb, hydral Increase hydral to 50mg TID Unhold BB Ok for precedex If Te-->use epicardial wires Wean nipride Continue IV diuretics 40mg BID Folate and Thiamine Ativan as needed; hold phenobarb (will discuss on rounds) GI prophy: PO protonix DVT prophy: Heparin SubQ Bowel: senna/miralax Interventions: POCUS of right checked 03/27 - not enough to tap Pulmonary hygiene: IS and Acapella TEDs, SCDs Lines/Drains: -CVC: 03/25 RIJ -Arterial line: 03/25 -Ramirez: 03/25 - maintain today -Chest tubes: maintain to waterseal Restraints: []Yes [x] No Consults: Endocrinology signed off D/c recs: OP follow up with PCP Therapies: PT: Home with home assist 03/27 Disposition: TBD Patient discussed and plan of day developed from multidisciplinary rounds between Cardiothoracic Surgery (Cardiothoracic Surgeon, GEOVANNY) and Critical Care Attending Cardiac Core Medications: ASA and Statin EF: 03/25 - normal Blood Conservation: Transfused postoperatively Railway Signalling Engineer: Dr. Matt Cherry Associated attestation - Mikhail Casillas MD - 03/28/2023 2:26 PM EST I have personally performed a face to face diagnostic evaluation on this patient today on 03/28/23. Labs, imaging studies, and electronic medical record notes on [facility] have been reviewed by me. This note documented and discussed by the []licensed mortgage loan officer []Fellow [x] GEOVANNY reflects my history, exam and medical decision making. I have reviewed and agree with the care plan. Changes were made in the orders as necessary. ROS documentation was reviewed and negative unless otherwise stated in the HPI. My history, exam, assessment and plan are as follows: Time spent for coordination of care: a subsequent visit: 50 minutes (Level III) Awake, in chair, denies pain, but oriented x 2 name and city only Heart RRR, lungs symmetric anteriorly without wheezes Severe CAD 03/25 s/p CABG, AtriClip Alcohol use disorder and withdrawal Pulmonary edema Hx Afib, currently sinus HTN Expected acute blood loss anemia psot op Tobacco and alcohol use Hx AAA, aortoiliac endograft and b/l renal artery stents Precedex drip, CIWA with ativan prn Lasix diuresis as tolerated Wean O2 as tolerated Department of Internal Medicine Division of Endocrinology, Diabetes, & Metabolism Endocrinology Note Patient Name: Regan Coughlin : 1960 AGE: 63 y.o. Room[facility]: [facility] Admission Date: 03/25/2023 Visit Date: 03/27/2023 Reason for Endocrine Consult: Post op heart surgery Provider/Team Requesting Consult: [facility] PCP: Sophie Craft [employer] Professor: No ASSESSMENT: Stress hyperglycemia CAD - S/P CABG Atrial fibrillation HTN HLD PLAN: Patient's blood sugars have been stable and <145 mg/dL over the last 24 hours without requiring any insulin administration. If the patient develops consistently elevated blood sugars on their morning basic metabolic panel, >150 mg/dL for 2 consecutive days, please contact our inpatient consultation team for reevaluation. DC sugar checks and Humalog sliding scale Recent TSH is normal We will sign off at this time. ANTICIPATED ENDOCRINE HOME GOING RECOMMENDATIONS: Optimized for Discharge from Endocrine standpoint: No Home Going Endocrine Rx Recommendations-- None Outpt Follow Up-- PCP SUBJECTIVE/HPI: CHIEF COMPLAINT: CAD for CABG Admission in 12/2022 for shortness of breath , developed A Fib with RVR during this admission. Underwent LHC which showed left main CAD and severe proximal LAD Stenosis. He underwent CABG X 4 on 03/25 Type of DM: na Onset of DM: na Home DM Medication Regimen: none DM control (last A1c/glucose data): 4.2% on current admission Patient seen at bedside Endorses to shortness of breath Appetite is not great. Was able to tolerate Ensure Glucose Date/Time Value Ref Range Status 03/27/2023 05:26 PM 111 (H) 70 - 100 mg/dL Final 03/27/2023 12:15 PM 116 (H) 70 - 100 mg/dL Final 03/27/2023 08:21 AM 121 (H) 70 - 100 mg/dL Final 03/26/2023 05:55 PM 152 (H) 70 - 100 mg/dL Final 03/26/2023 11:38 AM 145 (H) 70 - 100 mg/dL Final 03/26/2023 09:47 AM 132 (H) 70 - 100 mg/dL Final Review of Systems ROS negative except for those mentioned in HPI. OBJECTIVE: Vitals: 03/27/23 1500 03/27/23 1530 03/27/23 1544 03/27/23 1600 BP: BP Location: Patient Position: Pulse: 66 68 66 67 Resp: 17 20 15 (!) 27 Temp: TempSrc: SpO2: 100% 100% 95% 91% Weight: Height: Physical Exam Vitals and nursing note reviewed. Constitutional: Comments: Appears tired HENT: Head: Normocephalic and atraumatic. Cardiovascular: Rate and Rhythm: Normal rate and regular rhythm. Comments: Incision intact Pulmonary: Effort: Tachypnea present. Comments: On nasal cannula oxygen Chest tubes noted Musculoskeletal: General: No swelling. Normal range of motion. Skin: General: Skin is dry. Neurological: General: No focal deficit present. Mental Status: He is oriented to person, place, and time and easily aroused. Psychiatric: Attention and Perception: Attention normal. Behavior: Behavior is slowed. 24 hour intake/output: Intake/Output Summary (Last 24 hours) at 03/27/2023 1745 Last data filed at 03/27/2023 1723 Gross per 24 hour Intake 2878.5 ml Output 2450 ml Net 428.5 ml Diet: Adult diet Regular; 5 carb choices (75 gm/meal) Medications (as per EMR): HomeMeds: Current Outpatient Medications Medication Instructions aspirin 81 mg, Oral, Daily atorvastatin (LIPITOR) 80 mg, Oral, Nightly bacitracin 500 UNIT/GM ointment Topical, See admin instructions, Place on q-tip and swab inside nostrils the night before surgery and AM of surgery. chlorhexidine (Peridex) 0.12 % solution 15 mL, Mouth/Throat, See admin instructions, Swish and spit the night before surgery and AM of surgery. Eliquis 5 mg, Oral, 2 times daily furosemide (LASIX) 40 mg, Oral, Daily MAGNESIUM PO 1 tablet, Oral, Daily metoprolol tartrate (LOPRESSOR) 25 mg, Oral, 2 times daily POTASSIUM CHLORIDE PO 1 tablet, Oral, Daily, 99 MG Scheduled Meds:acetaminophen, 1,000 mg, Oral, q8h amLODIPine, 5 mg, Oral, Daily aspirin, 81 mg, Oral, Daily atorvastatin, 80 mg, Oral, Nightly folic acid, 1 mg, Oral, Daily furosemide, 40 mg, IntraVENous, BID heparin, 5,000 Units, SubCUTAneous, BID hydrALAZINE, 25 mg, Oral, TID influenza, 0.5 mL, IntraMUSCular, Once insulin lispro, 0-6 Units, SubCUTAneous, TID WC ipratropium-albuterol, 3 mL, Nebulization, 4x daily Lidocaine, 1 patch, Topical, Daily [Held by provider] metoprolol tartrate, 12.5 mg, Oral, BID mupirocin, , Nasal, BID pantoprazole, 40 mg, Oral, qAM AC polyethylene glycol (PEG) 3350, 17 g, Oral, Daily senna-docusate sodium, 2 tablet, Oral, Nightly simethicone, 80 mg, Oral, 4x daily sodium chloride 0.9%, 10 mL, IntraVENous, 2 times per day thiamine, 100 mg, Oral, Daily Continuous Infusions:nitroprusside, 0.3-3 mcg/kg/min, Last Rate: 2.5 mcg/kg/min (03/27/23 1507) PRN Meds:PRN medications: albumin human, calcium gluconate, dextrose, dextrose, glucagon (rDNA), glucose, hydrALAZINE, hydrOXYzine pamoate, LORazepam OR LORazepam OR LORazepam, magnesium hydroxide, magnesium sulfate OR magnesium sulfate, ondansetron ODT OR ondansetron, oxyCODONE OR oxyCODONE, potassium chloride OR potassium chloride OR potassium chloride, potassium chloride CR, simethicone, sodium chloride, sodium chloride, sodium chloride 0.9% Diagnostic Workup: I reviewed pertinent Laboratory results, Radiographic results, and Other Clinical Notes at the time of today's encounter. Labs: No components found for: LABA1C No components found for: EAG Lab Results Component Value Date NA 133 (L) 03/27/2023 K 3.5 03/27/2023 CL 104 03/27/2023 CO2 22 03/27/2023 BUN 32 (H) 03/27/2023 CREATININE 0.99 03/27/2023 GLUCOSE 113 (H) 03/27/2023 CALCIUM 8.7 03/27/2023 No results found for: CHLPL, CHOL No results found for: TRIG No results found for: HDL No results found for: LDLCALC No results found for: VLDL No results found for: CHOLHDLRATIO No results found for: [id number] Lab Results Component Value Date TSH 3.317 03/27/2023 Radiology reportsas per the Radiologist Radiology: ECG 12 lead Result Date: 03/26/2023 Sinus bradycardia LAD, consider left anterior fascicular block Left ventricular hypertrophy Nonspecific T abnormalities, lateral leads Electronically Signed On 03-26-2023 9:27:01 EST by Claudia Powers ECG 12 lead Result Date: 03/26/2023 Sinus or ectopic atrial bradycardia Left axis deviation PROBABLE INFERIOR INFARCT, AGE INDETERMINATE Electronically Signed On 03-26-2023 7:45:54 EST by Claudia Powers XR chest 1 view Result Date: 03/26/2023 Patient Name: REGAN COUGHLIN : 1960 [facility]#: [id number] Exam Date/Time: 03/26/2023 05:32 Procedure: XR CHEST 1 VIEW Ordering Provider: WAHL JENNIFER Reason For Exam: Shortness of breath CLINICAL INFORMATION: Shortness of breath. CHEST X-RAY, PORTABLE, 0532 hours: An AP portable view is compared to the prior examination of the previous day. The endotracheal and endogastric tubes have been removed. The tip of the [place]Claude catheter has been advanced into the proximal right pulmonary artery. There is no change in the position of the mediastinal or left lower hemithorax chest tubes. There is new atelectasis at right lung base. Stable mild pulmonary vascular prominence/congestion. No pneumothorax. Report Dictated on Electronically Signed By: Max Sarkar MD Electronically Signed Date/Time: 03/26/2023 7:31 AM EST XR chest 1 view Result Date: 03/25/2023 [facility] 1960 [id number] Exam Date/Time: 03/25/2023 12:06 Procedure: XR CHEST 1 VIEW Ordering Provider: WAHL JENNIFER Reason For Exam: Post op open heart surgery CLINICAL INFORMATION: Respiratory distress. Intubation. Chest tubes. New CABG. Portable view of the chest at 1205 hours is provided and compared to a previous study dated March 19, 2023. FINDINGS: An endotracheal tube is now seen with its tip approximately 3 cm above the braxton. An enteric tube extends into the stomach. A [place]ude catheter is in place via the right internal jugular vein. The distal tip is in the pulmonary outflow tract. The patient is now status post CABG with the usual sternal wires and surgical clips. The cardiac silhouette and mediastinum are otherwise unremarkable. Mediastinal left-sided chest tubes are in place. There is no pneumothorax. 1. New endotracheal tube in satisfactory position. 2. CABG. 3. Chest tubes without pneumothorax. Report Dictated on Electronically Signed By: Hitesh Hawkins MD Electronically Signed Date/Time: 03/25/2023 12:58 PM EST History/Other: Past Medical History: Past Medical History: Diagnosis Date AAA (abdominal aortic aneurysm) (HCC) Afib (CMS/HCC) (HCC) Coronary artery disease 2019 2x stents, Dr. Eulalio Gutierrez at [facility] TIA (transient ischemic attack) Past Surgical History: Past Surgical History: Procedure Laterality Date CORONARY STENT PLACEMENT 02/2020 x2 IR ANGIOGRAM ENDOVASCULAR AORTIC REPAIR 05/20/2022 OPEN FEMORAL ARTERY EXPOSURE FOR DELIVERY OF ENDOVASCULAR PROSTHESIS OTHER SURGICAL HISTORY Bilateral 05/20/2022 Exploration groin, evacuation of hematoma WISDOM TOOTH EXTRACTION Allergy(ies): No Known Allergies Family History: Family History Problem Relation Name Age of Onset No Known Problems Mother No Known Problems Father Social History: Social History Tobacco Use Smoking status: Every Day Packs/day: 0.25 Years: 30.00 Additional pack years: 0.00 Total pack years: 7.50 Types: Cigarettes Smokeless tobacco: Never Tobacco comments: 4 ciggs per day Vaping Use Vaping Use: Never used Substance Use Topics Alcohol use: Yes Alcohol/week: 4.0 standard drinks of alcohol Types: 4 Shots of liquor per week Drug use: Never Portions of the information within this encounter were entered using an electronic dictation system. Best attempts were made to edit/proofread the information prior to note completion. Despite the review of information, some errors may remain. If there are questions related to the information contained within the note please contact the signing physician directly. I spent 25 minutes with the pt which involved coordination of care, medical evaluation, review of records, and/or counseling of the pt regarding his/her condition/disease state/prognosis on the date of this note. Images from the original note were not included. PHYSICAL THERAPY [facility] Treatment Note Name/MRN: Regan Coughlin ([id number]) Date of : 1960 Age: 63 y.o. Room/Bed: T1-105/T1-105 A Discharge Recommendation: Home with Assist PRN and Outpatient PT (cardiac rehab) Equipment Needed: TBD Prior Level of Function ADL Assistance: Independent Ambulation Assistance: Independent Transfer Assistance: Independent Patient reports his brother does not work but does have chronic back pain which limits him. Patient is typically indep with all IADLs, ADLs and mobility without a device. Assessment Pt min assist for transfer, gait and bed mobility. Increase time to complete task. More SOBOE, HFNC 15L, ongoing cues for pursed lip breathing. Will continue to assess pt progress, anticipate home with assist. Subjective Pt in chair, appears uncomfortable, rocking back in forth, SOB. RN cleared pt for therapy. States if ambulate, keep in room due to increase in O2. Pt agreeable to PT. Pain: RN managing pain. Medical Precautions: No active isolations Proper PPE donned/doffed in accordance with facility standards. Fall Risk: [place] Fall Risk Score: 50 (High Risk) Precautions/Restrictions: Sternal Precautions: no lifting more than 10lbs, modified UE precautions with move in the tube Lines/Drains/Airways: tele, continuous pulse ox, chest tube, ramirez, 15L O2 HFNC, introducer R IJ, art line RUE Family/Caregiver Present: none Objective Ambulation Ambulation 1 Assistive device(s) used: none Assist level: Min Assist Distance (ft): 7ft bed>chair Quality of gait: uneven step length, wide MADDIE, slow drew, postural sway Transfers/Mobility Sit to stand: Min Assist Stand to sit: Min Assist X1, chair>bed Device(s) used: none Exercises Exercises Upper Extremity: P&C ex #1-7 x 5 reps eac Comments: Pt limited by decrease endurance, SOBOE Bed Mobility Sit to supine: Min Assist Scooting: Min Assist HOB elevated, assist with BLE. Increase time, cues for pursed lip breathing. Plan Continue acute PT per plan of care. Safety/Education Safety Safety Devices in place: call light within reach, left in bed, and nurse notified Restraints: No Education Education Given To: patient Education Provided: PT Goals, Plan of Care, Home Exercise Program, Precautions, Transfer Training, Discharge Recommendations, Benefits of Increasing Activity, and Breathing Techniques Education Method: Verbal Barriers to Learning: None Education Outcome: Verbalized Understanding Outcome Measures AM-PAC AM-PAC Inpatient Mobility Raw Score (No Stairs) : 15 JH-HLM JH-HLM Score: Transferred to chair/commode Goals Patient Stated Goal: To feel better Encounter Problems Encounter Problems (Active) Cardiac Patient will perform bed mobility with modified independence in order to improve independence and prepare for out of bed mobility. (Progressing) Start: 03/26/23 Expected End: 04/09/23 Patient will complete sit to stand transfer with modified independence in order to improve safety and prepare for out of bed mobility. (Progressing) Start: 03/26/23 Expected End: 04/09/23 Patient will ambulate 400 feet or ambulate 5 minutes with modified independence with RPE of 14 or lower. (Progressing) Start: 03/26/23 Expected End: 04/09/23 Patient will ascend and descend flight of stairs with modified independence and rail for balance only. (Not Addressed) Start: 03/26/23 Expected End: 04/09/23 Patient will be independent with P&C exercises. (Progressing) Start: 03/26/23 Expected End: 04/09/23 Patient will be independent with managing secretions and home walking program. (Progressing) Start: 03/26/23 Expected End: 04/09/23 Pain - Adult Therapy Time Individual Co-treatment Time In 1418 Time Out 1434 Minutes 16 Timed Code Treatment Minutes: 16 Minutes (fa) Nils Barker, BEVEL MILL OPERATOR Images from the original note were not included. Cardiothoracic Surgery Interval Note PATIENT NAME: Regan Coughlin : 1960 (63 y.o.) TODAY'S DATE: 03/27/2023 Interval History: -POCUS of possible right effusion on right - not enough to tap- reviewed with CCM attending. -plan lasix now add high flow - may need to repeat lasix this afternoon Images from the original note were not included. Cardiothoracic Surgery/[facility] Progress Note PATIENT NAME: Regan Coughlin DATE: 03/27/23 HPI: 63 yo male with PMH of CAD & STEMI s/p PCI (RCA in 2019), Afib (on Eliquis), AAA s/p fenestrated EVAR with RTOR for bilateral groin hematomas, hematuria, HTN, HPL, ETOH, current smoker. He presented to OSH ED on 01/07/23 with worsening SOB x3 weeks. Echo shoed LVEF 50% with wall motion abnormalities. He did develop Afib RVR during hospitalization and reverted back to SR. Had a heart cath on 02/16/23 which showed multivessel CAD involving LM, prox LAD, and RCA. Surgery/Procedure: 03/25/23: CABG x4, MAZE, LAAL with atriclip, and LLE EVH with Dr. Villarreal Interval History: 03/27/23, POD# 2: Hypertensive on nipride. 6LNC - and with noted pain at MSI and CT insertion site. Bit confused today on rounds- able to reorient quickly. Alert following commands - about to get up with nursing. Not eating much - only had some jello yesterday, tolerating liquids. Review of Systems Constitutional: Negative for diaphoresis, fatigue and fever. Respiratory: Negative for cough, shortness of breath and wheezing. Cardiovascular: Positive for chest pain. Negative for palpitations and leg swelling. Gastrointestinal: Negative for abdominal distention, constipation and diarrhea. Skin: Negative for color change, pallor and rash. Psychiatric/Behavioral: Positive for confusion. Objective: CT output cc/24hrs: 250 UO cc/24hrs: 605 Vitals: BP: (!) 156/59, MAP (mmHg): 83, BP Method: Arterial line Heart Rate: 63 Resp: 13 Temp: 36.6 C (97.8 F), Temp Source: Temporal BMI (Calculated): 26.09 Pacer Wires: V wires CXR: BMP: Recent Labs 03/25/23 1113 03/26/23 0413 03/26/23 1155 03/27/23 0002 03/27/23 0234 NA 137 138 135 133* -- K 3.9 4.6 4.1 3.6 -- CL 107 105 104 105 -- CO2 21* 19* 19* 23 -- BUN 15 24* 27* 29* -- CREATININE 1.04 1.46* 1.36* 1.15 -- CALCIUM 8.5 8.8 8.4 7.6* -- MG 3.5* 2.8* -- -- 2.4* PHOS 4.5 -- -- -- -- CBC: Recent Labs 03/25/23 1113 03/25/23 1218 03/25/23 1546 03/26/23 0413 03/27/23 0234 WBC 15.5* -- -- 9.5 13.0* HGB 7.4* < > 8.7 7.6* 6.4* HCT 22.1* -- -- 22.6* 18.9* PLT 173 -- -- 119* 109* MCV 93.9 -- -- 94.0 93.7 RDW 14.2 -- -- 14.3 14.4 < > = values in this interval not displayed. INR: Recent Labs 03/25/23 1113 03/26/23 0413 03/27/23 0234 INR 1.3* 1.2* 1.6* Physical Exam Cardiovascular: Rate and Rhythm: Normal rate and regular rhythm. Heart sounds: Normal heart sounds. No murmur heard. No friction rub. Pulmonary: Effort: Pulmonary effort is normal. Breath sounds: Examination of the right-lower field reveals decreased breath sounds. Decreased breath sounds present. Skin: General: Skin is warm and dry. Capillary Refill: Capillary refill takes less than 2 seconds. Findings: Bruising and ecchymosis present. Neurological: Mental Status: He is alert. Psychiatric: Behavior: Behavior is cooperative. Assessment: CAD s/p CABGx4 03/25 Afib (on Eliquis) s/p MAZE 03/25 AAA s/p fenestrated EVAR HTN HPL ETOH Right effusion - maintain CTs Current smoker Hx. Hematuria Hx. Stent to RCA in 2019 Post operative Pulm Management: Normal Post-operative Course Acute blood loss anemia/consumptive thrombocytopenia Plan: Patient Status: ICU Medications: Continue ASA statin Hold BB d/t bradycardia Hold diuretics for now Wean nipride Start CCB and hydralazine PRN with parameters Folate and Thiamine Give 2gm Calcium gluconate GI prophy: PO protonix DVT prophy: Heparin SubQ Bowel: senna/miralax Interventions: Transfuse two units PRBC total Monitor N/V - may need NG to decompress Pulmonary hygiene: IS and Acapella TEDs, SCDs Lines/Drains: -CVC: 03/25 RIJ -Arterial line: 03/25 -Ramirez: 03/25 - maintain today -Chest tubes: maintain to waterseal Restraints: []Yes [x] No Consults: Endocrinology following- insulin management D/c recs: OP follow up with PCP Therapies: PT: Home with home assist 03/26 Disposition: TBD Patient discussed and plan of day developed from multidisciplinary rounds between Cardiothoracic Surgery (Cardiothoracic Surgeon, GEOVANNY) and Critical Care Attending Cardiac Core Medications: ASA and Statin EF: 03/25 - normal Blood Conservation: Transfused postoperatively Railway Signalling Engineer: Dr. Matt Cherry Associated attestation - Mikhail Casillas MD - 03/27/2023 12:25 PM EST I have personally performed a face to face diagnostic evaluation on this patient today on 03/27/23. Labs, imaging studies, and electronic medical record notes on [employer] have been reviewed by me. This note documented and discussed by the []licensed mortgage loan officer []Fellow [x] GEOVANNY reflects my history, exam and medical decision making. I have reviewed and agree with the care plan. Changes were made in the orders as necessary. ROS documentation was reviewed and negative unless otherwise stated in the HPI. My history, exam, assessment and plan are as follows: Time spent for coordination of care: a subsequent visit: 35 minutes (Level II) Increasing O2 requirements, wheezing b/l, heart RRR CXR with pulm vasc congestion, pulm edema Severe CAD 03/25 s/p CABG, AtriClip Hx Afib, currently sinus HTN Expected acute blood loss anemia psot op Tobacco and alcohol use Hx AAA, aortoiliac endograft and b/l renal artery stents Add scheduled duonebs Lasix diuresis as tolerated, try HFNC Transfuse prn Images from the original note were not included. PHYSICAL THERAPY [facility] Initial Evaluation Name/MRN: Regan Coughlin ([id number]) Evaluation Date: 03/26/2023 Date of : 1960 Admission Date: 03/25/2023 5:54 AM Age: 63 y.o. Room/Bed: T1-105/T1-105 A Discharge Recommendation: Home with Assist PRN and Outpatient PT (cardiac rehab) Equipment Needed: TBD Assessment IMPRESSION: Patient is a 63 yo male admitted due to CAD s/p CABG x4 with atri-clip placement and Maze procedure on 03/25. Diagnosis: CAD s/p CABG x4 with atri-clip placement and Maze procedure on 03/25 Prognosis: good Performance Deficits /Impairments: Increased Pain, Decreased Functional Mobility, Decreased ADL status, Decreased Endurance, and Decreased Balance Decision Making: Medium Complexity Subjective RN cleared patient for PT eval. Patient awake in bed, appears slightly agitated but agreeable to therapy. Pain: 0-10 pain scale: 12/10 Location: sternum Past Medical History: Past Medical History: Diagnosis Date AAA (abdominal aortic aneurysm) ([facility]) Afib (CMS/HCC) (HCC) Coronary artery disease 2019 2x stents, Dr. Eulalio Gutierrez at [facility] TIA (transient ischemic attack) Past Surgical History: Past Surgical History: Procedure Laterality Date CORONARY STENT PLACEMENT 02/2020 x2 IR ANGIOGRAM ENDOVASCULAR AORTIC REPAIR 05/20/2022 OPEN FEMORAL ARTERY EXPOSURE FOR DELIVERY OF ENDOVASCULAR PROSTHESIS OTHER SURGICAL HISTORY Bilateral 05/20/2022 Exploration groin, evacuation of hematoma WISDOM TOOTH EXTRACTION Admission Diagnosis: Patient Active Problem List Diagnosis Date Noted CAD in [place] artery 03/25/2023 Abdominal aortic aneurysm, without rupture, unspecified ([facility]) 05/19/2022 Infrarenal 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 ([facility]) 04/07/2022 Medical Precautions: No active isolations Proper PPE donned/doffed in accordance with facility standards. Fall Risk: [place] Fall Risk Score: 50 (High Risk) Precautions/Restrictions: Sternal Precautions: no lifting more than 10lbs, modified UE precautions with move in the tube Lines/Drains/Airways: tele, continuous pulse ox, chest tube, ramirez, 4L O2 NC, introducer R IJ, art line RUE Family/Caregiver Present: none Overall Cognitive Status: WFL Overall Orientation Status: Oriented x4 Vision: not assessed this session Hearing: normal Social/Functional History Patient admitted from home. 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 Patient is typically indep with all IADLs, ADLs and mobility without a device. Objective Lower Extremity Assessment AROM: WFL PROM: WFL Strength: WFL Bed Mobility: Supine to sit: Min Assist Sit to supine: Min Assist Scooting: SBA (seated scoot to EOB) HOB elevated, increased time to perform, cues for sequencing and to maintain sternal precautions, especially with RUE due to art line. Patient denied dizziness upon sitting. Transfers Sit to stand: Contact Guard Stand to sit: Contact Guard From EOB, cues for sternal precautions Ambulation Ambulation 1 Assistive device(s) used: Nezzie Assist level: Contact Guard Distance (ft): 60 Quality of gait: No LOB, narrow MADDIE, slow drew, mild dyspnea, O2 between 87-91% on 4L, cues for pursed-lip breathing and upright posture. Reported exertion at 03/16. Nurse present to assist with line mgmt. Outcome Measures AM-PAC How much HELP from another person do you currently need Turning from your back to your side while in a flat bed without using bedrails?: A Little Moving from lying on your back to sitting on the side of a flat bed without using bedrails?: A Little Moving to and from a bed to a chair (including a wheelchair)?: A Little Standing up from a chair using your arms (wheelchair or bedside chair)?: A Little Walking in a hospital room?: A Little Stair climbing assessed?: No AM-PAC Inpatient Mobility Raw Score (No Stairs) : 15 JH-HLM -HL Score: Walked 25 ft or more (i.e. walked outside of room) Plan Pt would benefit from skilled acute PT services to address Strengthening, Balance Training, Functional Mobility Training, Endurance Training, Gait Training, Stair Training, Safety Education and Training, Patient/Caregiver Training, Equipment Evaluation/Education, and chest PT, HEP . Frequency: 5x/week for 2 weeks Barriers: Pain, Decreased endurance, and Stairs at home Safety/Education Safety Safety Devices in place: call light within reach, left in bed, patient at risk for falls, nurse notified, and no alarms engaged upon entry Restraints: No Education Education Given To: patient Education Provided: PT Role, PT Goals, Gait Training, Plan of Care, Precautions, Transfer Training, and Breathing Techniques Education Method: Verbal, Demonstration, Teach Back, and Printed Information Barriers to Learning: None Education Outcome: Verbalized Understanding and Continued Education Needed Goals Patient Stated Goal: To have less pain Encounter Problems Encounter Problems (Active) Cardiac Patient will perform bed mobility with modified independence in order to improve independence and prepare for out of bed mobility. Start: 03/26/23 Expected End: 04/09/23 Patient will complete sit to stand transfer with modified independence in order to improve safety and prepare for out of bed mobility. Start: 03/26/23 Expected End: 04/09/23 Patient will ambulate 400 feet or ambulate 5 minutes with modified independence with RPE of 14 or lower. Start: 03/26/23 Expected End: 04/09/23 Patient will ascend and descend flight of stairs with modified independence and rail for balance only. Start: 03/26/23 Expected End: 04/09/23 Patient will be independent with P&C exercises. Start: 03/26/23 Expected End: 04/09/23 Patient will be independent with managing secretions and home walking program. Start: 03/26/23 Expected End: 04/09/23 Pain - Adult Therapy Time Individual Co-treatment Time In 1409 Time Out 1440 Minutes 31 Timed Code Treatment Minutes: 10 Minutes (FA) Shahla Alvarado PT Patient's Physical Therapy Plan of Care supervision is transferred to a [facility] Therapy Services Physical Therapist. Goals and/or treatment plan was established in collaboration with patient/family/other representatives. This provider wore appropriate PPE throughout session per facility guidelines. Images from the original note were not included. Cardiothoracic Surgery/[facility] Progress Note PATIENT NAME: Regan Coughlin DATE: 03/26/23 HPI: 63 yo male with PMH of CAD & STEMI s/p PCI (RCA in 2019), Afib (on Eliquis), AAA s/p fenestrated EVAR with RTOR for bilateral groin hematomas, hematuria, HTN, HPL, ETOH, current smoker. He presented to OSH ED on 01/07/23 with worsening SOB x3 weeks. Echo shoed LVEF 50% with wall motion abnormalities. He did develop Afib RVR during hospitalization and reverted back to SR. Had a heart cath on 02/16/23 which showed multivessel CAD involving LM, prox LAD, and RCA. Surgery/Procedure: 03/25/23: CABG x4, MAZE, LAAL with atriclip, and LLE EVH with Dr. Villarreal Interval History: 03/26/23, POD# 1: Hypertensive this am, started on Nipride gtt at 0.25 mcg/kg/min. Other VSS, NSR/SB on tele, on 2L NC. He is anxious this am, does endorse pain. CIWA scale in, has not received any Ativan. Having some nausea, no vomiting. Cr elevated at 1.46, Lactic 3.1, low UO. CI 2.42, SVR 1137, PAP 54/20. A-line: Arterial Line BP 1: 141/62 Invasive Hemodynamic Monitoring Hemodynamic Monitoring Additional Assessment: Yes Blood Temperature: 36.7 C (98.1 F) PAP: 54/20 PAP (Mean): 32 mmHg CVP (mmHg): 18 mmHg CO (L/min): 4.73 L/min CI (L/min/m2): 2.42 L/min/m2 SVR (dyne*sec)/cm5: 1137 (dyne*sec)/cm5 Review of Systems Constitutional: Positive for activity change, appetite change and fatigue. Negative for diaphoresis and fever. Respiratory: Negative for cough, shortness of breath and wheezing. Cardiovascular: Negative for chest pain, palpitations and leg swelling. Gastrointestinal: Negative for abdominal distention, constipation and diarrhea. Skin: Negative for color change, pallor and rash. Psychiatric/Behavioral: The patient is nervous/anxious. Objective: CT output cc/24hrs: 875 mL UO cc/24hrs: 995 mL Vitals: BP: (!) 140/55, MAP (mmHg): 88, BP Method: Arterial line Heart Rate: 57 Resp: (!) 31 Temp: 36.7 C (98.1 F), Temp Source: Core BMI (Calculated): 26.09 Pacer Wires: V-wires CXR: BMP: Recent Labs 03/25/23 1113 03/26/23 0413 NA 137 138 K 3.9 4.6 CL 107 105 CO2 21* 19* BUN 15 24* CREATININE 1.04 1.46* CALCIUM 8.5 8.8 MG 3.5* 2.8* PHOS 4.5 -- CBC: Recent Labs 03/25/23 1113 03/25/23 1218 03/25/23 1546 03/26/23 0413 WBC 15.5* -- -- 9.5 HGB 7.4* 8.5 8.7 7.6* HCT 22.1* -- -- 22.6* PLT 173 -- -- 119* MCV 93.9 -- -- 94.0 RDW 14.2 -- -- 14.3 INR: Recent Labs 03/25/23 1113 03/26/23 0413 INR 1.3* 1.2* Physical Exam Cardiovascular: Rate and Rhythm: Regular rhythm. Bradycardia present. Heart sounds: Normal heart sounds. No murmur heard. No friction rub. Pulmonary: Effort: Pulmonary effort is normal. Breath sounds: No decreased breath sounds or wheezing. Genitourinary: Comments: Ramirez catheter to straight drain Musculoskeletal: Right lower leg: No edema. Left lower leg: No edema. Skin: General: Skin is warm and dry. Capillary Refill: Capillary refill takes less than 2 seconds. Findings: Bruising and ecchymosis present. Comments: Surgical Incisions: well approximate; clean dry with no drainage noted. Surrounding skin no redness, warmth, or signs of infection noted. Neurological: Mental Status: He is alert. Psychiatric: Behavior: Behavior is cooperative. Assessment: CAD s/p CABG Afib (on Eliquis) AAA s/p fenestrated EVAR HTN HPL ETOH Current smoker Hx. Hematuria Hx. Stent to RCA in 2019 Post operative Pulm Management: Normal Post-operative Course Acute blood loss anemia/consumptive thrombocytopenia Plan: Patient Status: ICU Get KUB Give albumin 50g & LR 500 mL Trend lactic and BMP ASA/Statin Hold BB dt bradycardia CIWA scale PRN Folate & Thiamine Pain control Schedule Acetaminophen 1000 mg q8hr PRN Oxycodone 5-10mg q4hr PRN & hydromorphone 0.25-0.5 mg q2hr PRN D/C SGC CT-> Water seal Endocrine following for insulin needs PT/OT: needs assessment Pulmonary hygiene: IS and Acapella GI prophy: PO protonix DVT prophy:TEDs, SCDs, and Heparin SubQ Disposition: TBD Central Line: [x]Yes [] No Arterial Line: [x]Yes [] No Ramirez: [x]Yes [] No Restraints: []Yes [x] No Patient discussed and plan of day developed from multidisciplinary rounds between Cardiothoracic Surgery (Cardiothoracic Surgeon, GEOVANNY) and Critical Care Attending Cardiac Core Medications: ASA, Statin, and No BB d/t bradycardia EF: preop 50% Blood Conservation: None noted in post-operative period Railway Signalling Engineer: Dr. Gutierrez ([place]) Associated attestation - Mikhail Casillas MD - 03/26/2023 3:15 PM EST I have personally performed a face to face diagnostic evaluation on this patient today on 03/26/23. Labs, imaging studies, and electronic medical record notes on [employer] have been reviewed by me. This note documented and discussed by the []licensed mortgage loan officer []Fellow [x] GEOVANNY reflects my history, exam and medical decision making. I have reviewed and agree with the care plan. Changes were made in the orders as necessary. ROS documentation was reviewed and negative unless otherwise stated in the HPI. My history, exam, assessment and plan are as follows: Time spent for coordination of care: a subsequent visit: 35 minutes (Level II) Awake, in chair, resp unlabored, sinus te Extubated yesterday, weaned off precedex, remains on nipride drip On CIWA Had nausea this morning Severe CAD 03/25 s/p CABG, AtriClip Hx Afib, currently sinus Expected acute blood loss anemia Post op vent management, resp acidosis SHONA with elevated lactic acid Tobacco and alcohol use Hx AAA, aortoiliac endograft and b/l renal artery stents F/u KUB On ASA, statin On folic acid and thiamine Cont CIWA Update: Pt tolerated SBT, extubated, no resp distress, no stridor. On precedex drip, calm. Ongoing ICU care. documented in this encounter [facility] 04-01-[facility]23 Miscellaneous Notes Images from the original note were not included. Care Management Progress Note Patient remains in CTV ICU s/p CABG x 4 POD # 7. VSS, on RA, in NSR on tele, diuresis transitioned to PO, resume home Eliquis, amio taper at dc, and PT/OT recommending home with assist. Patient from home with brother, lacks payor source. Discharge Milestones and Delays Expected Date/Time: 04/02/[address] discharge order Complete med reconciliation Case mgmt discharge readiness Clinical Stability Diagnsotic Workup Expected Discharge History Expected Date/Time Set By Reviewed At 04/02/2023 Marisabel Watts RN 04/01/2023 10:23 AM 04/02/2023 Marsiabel Watts RN 03/31/2023 9:09 AM 04/02/2023 Marsiabel Watts RN 03/30/2023 9:16 AM 03/30/2023 Marisabel Watts RN 03/26/2023 10:57 AM 03/30/2023 Laxmi Calvillo RN 03/25/2023 11:35 AM 03/30/2023 Deon Langston, DIRECTOR MARKET INTELLIGENCE - CONCRETE BLOCK MAKER 03/25/2023 5:58 AM Length of Stay (Days): 7 GMLOS: 5.8 SW coverage for today. Pt currently without insurance. Pt has been screened by [employer] and pt is currently over income for Medicaid or HCAP. Pt currently receiving income from employer while he is ill. Problem: Knowledge Deficit Goal: Patient/family/caregiver demonstrates understanding of disease process, treatment plan, medications, and discharge instructions Outcome: Progressing Problem: Potential for Compromised Skin Integrity Goal: Skin Integrity is Maintained or Improved Outcome: Progressing Problem: Potential for Compromised Skin Integrity Goal: Nutritional status is improving Outcome: Progressing Problem: Pain - Adult Goal: Verbalizes/displays adequate comfort level or baseline comfort level Outcome: Progressing Problem: Safety - Adult Goal: Free from fall injury Outcome: Progressing Problem: Discharge Planning Goal: Discharge to home or other facility with appropriate resources Outcome: Progressing Problem: Problem Interventions Goal: Assess Nutritional Intake Outcome: Progressing Images from the original note were not included. Care Management Progress Note Patient remains in CTV ICU s/p CABG x 4 POD # 6. VSS, on RA, in and out of Afib on tele, chest tube to water seal, IV Amio transitioned to PO, decrease diuresis, R thoracentesis for 350ml removed yesterday, will need Eliquis re-started and PT/OT recommending home with assist/IPR. Patient from home with brother, patient lacks payor source for IPR. CTS GEOGRAPHIC INFORMATION SYSTEMS MANAGER aware. Discharge Milestones and Delays Expected Date/Time: 04/02/[address] discharge order Complete med reconciliation Case mgmt discharge readiness Clinical Stability Diagnsotic Workup Expected Discharge History Expected Date/Time Set By Reviewed At 04/02/2023 Marisabel Watts RN 03/31/2023 9:09 AM 04/02/2023 Marisabel Watts RN 03/30/2023 9:16 AM 03/30/2023 Marisabel Watts RN 03/26/2023 10:57 AM 03/30/2023 Laxmi Calvillo RN 03/25/2023 11:35 AM 03/30/2023 Deon Langston, MARISABEL - CONCRETE BLOCK MAKER 03/25/2023 5:58 AM Length of Stay (Days): 6 GMLOS: 5.8 Problem: Knowledge Deficit Goal: Patient/family/caregiver demonstrates understanding of disease process, treatment plan, medications, and discharge instructions Outcome: Progressing Problem: Potential for Compromised Skin Integrity Goal: Skin Integrity is Maintained or Improved Outcome: Progressing Problem: Potential for Compromised Skin Integrity Goal: Nutritional status is improving Outcome: Progressing Problem: Pain - Adult Goal: Verbalizes/displays adequate comfort level or baseline comfort level Outcome: Progressing Problem: Safety - Adult Goal: Free from fall injury Outcome: Progressing Problem: Discharge Planning Goal: Discharge to home or other facility with appropriate resources Outcome: Progressing Problem: Problem Interventions Goal: Assess Nutritional Intake Outcome: Progressing Images from the original note were not included. Care Management Progress Note Patient remains in CTV ICU s/p CABG x 4 POD # 5. Weaned to 2L NC, VSS, short episode of Afib on tele-self converted, BB increased, chest tube to water seal, endocrine signed off, thoracentesis today, sitter at bedside, and PT now recommending IPR. Patient from home with brother, lacks payor source for IPR/home care. TCC to follow. Discharge Milestones and Delays Expected Date/Time: 04/02/[address] discharge order Complete med reconciliation Case mgmt discharge readiness Clinical Stability Diagnsotic Workup Expected Discharge History Expected Date/Time Set By Reviewed At 04/02/2023 Marisabel Watts RN 03/30/2023 9:16 AM 03/30/2023 Marisabel Watts RN 03/26/2023 10:57 AM 03/30/2023 Laxmi Calvillo RN 03/25/2023 11:35 AM 03/30/2023 Deon Langston, MARISABEL - CONCRETE BLOCK MAKER 03/25/2023 5:58 AM Length of Stay (Days): 5 GMLOS: 5.8 Problem: Problem Interventions Goal: Assess Nutritional Intake Outcome: Not Progressing Problem: Knowledge Deficit Goal: Patient/family/caregiver demonstrates understanding of disease process, treatment plan, medications, and discharge instructions Outcome: Progressing Problem: Potential for Compromised Skin Integrity Goal: Skin Integrity is Maintained or Improved Outcome: Progressing Goal: Nutritional status is improving Outcome: Progressing Problem: Urinary Incontinence Goal: Perineal skin integrity is maintained or improved Outcome: Progressing Problem: Pain - Adult Goal: Verbalizes/displays adequate comfort level or baseline comfort level Outcome: Progressing Problem: Safety - Adult Goal: Free from fall injury Outcome: Progressing Problem: Discharge Planning Goal: Discharge to home or other facility with appropriate resources Outcome: Progressing The patient is Moderately Unstable - Medium risk of patient condition declining or worsening The patient's goals for the shift include feel better The clinical goals for the shift include wean from nipride gtt Over the shift, the patient did not make progress toward the following goals. Barriers to progression include hypertension. Recommendations to address these barriers include introduce oral medications. Problem: Problem Interventions Goal: Assess Nutritional Intake Outcome: Not Progressing Images from the original note were not included. Care Management Progress Note Patient remains in CTV ICU s/p CABG x 4 POD # 2. Now on HFNC 15L, in NSR on tele, chest tubes to water seal, remains on Nipride, transfused PRBC, diuresis with IV lasix and PT recommending home with assist. Patient from home with brotherIVAN following, but patient lacks payor source. Discharge Milestones and Delays Expected Date/Time: 03/30/[address] discharge order Complete med reconciliation Case mgmt discharge readiness Clinical Stability Diagnsotic Workup Expected Discharge History Expected Date/Time Set By Reviewed At 03/30/2023 Marisabel Watts RN 03/26/2023 10:57 AM 03/30/2023 Laxmi Calvillo RN 03/25/2023 11:35 AM 03/30/2023 Deon Langston, DIRECTOR MARKET INTELLIGENCE - CONCRETE BLOCK MAKER 03/25/2023 5:58 AM Length of Stay (Days): 2 GMLOS: No GMLOS Documented Care Managment Initial Assessment Date: 03/26/2023 Patient Name: Regan Coughlin : 1960 Patient Information Source of Information: Patient Cognition/Language: WFL - Within Functional Limits Permission given to speak with patient sales representative womens health/caregiver as indicated: Confirmation of Payer with patient/family: No Payer Name: Self pay : No Confirmation of Primary Care Physician: Confirmed PCP Name: Dr. Craft Seen in last 2 years?: Yes Primary Caregiver: Self If assistance needed, confirmed caregiver ready, willing and able to care for patient at discharge: Confirmed with: Living Arrangements Current Residence: House Number of Floors 1 Number of Entry Steps: Bed/Bath Levels: Both first floor Facility: Facility Name: Plan to Return: Lives with: Extended family members (brother) Support Systems: Family members Activities of Daily Living Ambulation: Independent Bathing/Dressing: Independent Elimination/Continence/Toileting: Independent Feeding: Independent Who Assists with Activities of Daily Living: Instrumental Activities of Daily Living Prescription Coverage: Yes Pharmacy Used: [facility] in [place] Medication Management: Independent Transportation/Shopping: Independent Transportation Mode: Car Needs Assistance with Transportation at Discharge: No Meal Preparation: Independent Laundry/Cleaning: Independent Finances/Bill Paying: Independent Communication: Independent Types of Care Services/Equipment Utilized Care Services: Dialysis Type: Durable Medical Equipment: Patient's Goal/Discharge Plan Patient expects to be discharged to: home Discharge Planning Actions: Continue to follow Patient's Choice Rights and [employer] and Collaborative Relationships Disclosed as Indicated for Post-Acute Care: Interdisciplinary Team Engagement: PT/OT, Home Health Care Social Work Referral for: Additional Information: Patient admitted to CTV ICU s/p CABG x 4 POD # 1. Spoke with patient at bedside, introduced self and role. Patient from home with brother, is independent, has PCP but no prescription coverage, will have a ride home and LOVE following but patient lacks a payor source. TCC to follow. Marisabel Watts RN Images from the original note were not included. Cardiothoracic Surgery Operative Report Pre-operative Diagnosis: Multivessel coronary artery disease, paroxysmal atrial fibrillation Post-operative Diagnosis: Multivessel coronary artery disease, paroxysmal atrial fibrillation Procedure: 1. Coronary revascularization x 4: Left internal mammary artery grafted to the left anterior descending coronary artery, reverse saphenous vein graft grafted to the first diagonal coronary artery, reverse saphenous vein graft grafted to the first obtuse marginal coronary artery, reverse saphenous vein graft grafted to the posterior descending coronary artery 2. Endoscopic vein harvesting left lower extremity, calf to thigh) 3. Radiofrequency pulmonary vein isolation and application of 40 mm AtriClip for left atrial appendage occlusion 4. Intraoperative transesophageal echocardiography Surgeon: Alfonso Villarreal MD Chess Instructor(s): [] Suresh Gardner [] Brandon Nash [x] Velasquez Cabello [] Velasquez Hernandez [] Other Anesthesia: General Estimated blood loss: Difficult to estimate due to the nature of the surgery. Cell Saver and pump suction utilized. Total IV fluids: See anesthesia and perfusion record Blood Transfusion?: No Drains: Mediastinal and left pleural drains Specimens: None Complications: None Condition: Stable upon transfer to the intensive care unit Prophylactic Antibiotics: Yes 1st or 2nd generation cephalosporin given (or other antibiotic in the event of an allergy) within 1 hour of surgical incision (two hours if receiving Vancomycin or flouroquinolone) If NO, indication reason why: [] Patient on continuous antibiotics for documented preoperative infection [] Other: The STS Risk Calculator score was calculated and discussed with the patient/family prior to surgery. Yes: [x] No: [] Not a risk calculated procedure [] Emergent or Emergent/Salvage Used of ALESSANDRA: Yes No due to: [] Subclavian stenosis [] Emergent or Emergent/Salvage [] Prior cardiothoracic surgery [] Prior mediastinal radiation [] No bypassable LAD disease, LAD not needed/bypassed: (This can include clean LAD, diffusely diseased LAD or other condition resulting in the LAD not being bypassed). Beta-evelyn within 24 hours prior to surgical incision: [x] Yes - please see documentation in EMR [] No [] Allergy [] Heart block [] COPD [] Hypotension BP: [] Bradycardia HR: INDICATIONS FOR SURGERY: In February 2020 pt had presented to ED for acute onset chest discomfort. He was taken emergently to the cardiac catheterization lab with an ST elevation IL involving the inferior wall. He underwent cardiac catheterization angioplasty and stenting of the right coronary artery. He had mild residual disease noted in the left anterior descending artery territory. EF was normal at that time. Pt presented to ED on 01/07/23 with c/o worsening SOB for 3 weeks and palpitations. An echocardiogram was completed which demonstrated a normal EF of 50% and wall motion abnormality. While hospitalized he developed afib with RVR. He converted back to NSR and was discharged home on Metoprolol and Eliquis. Pt then underwent a heart catheterization on 02/16/23 which demonstrated left main coronary artery disease with severe proximal LAD stenosis and previously stented right coronary artery which is patent and mild left ventricular systolic dysfunction. Indications for surgery are as follows: Multivessel coronary artery disease including a left main trunk stenosis. Recommend revascularization of the LAD system as well as the circumflex system. This would likely include a large first obtuse marginal coronary artery and possibly the distal circumflex. The LAD would need to be revascularized as well. Additionally, right coronary artery will need to be considered for revascularization as well although this lesion is approximately 60%. Paroxysmal atrial fibrillation-we will hold Eliquis preoperatively. Recommend left atrial appendage clip as well as pulmonary vein isolation. No valvular abnormalities are seen on the echocardiogram. While the echo also does not comment on right ventricular dysfunction, there is some scarring of the inferior wall on the left ventriculogram, which we should consider during the intraoperative transesophageal echo. Would recommend [place] catheterization for this procedure. DESCRIPTION OF PROCEDURE: Patient was taken to the operative suite and placed under general endotracheal anesthesia. Monitoring lines were inserted by the department of anesthesia. Intraoperative transesophageal echocardiography was performed. The findings will follow under separate dictation. The patient was positioned prepped and draped. After appropriate timeout a left lower extremity incision was made and the greater saphenous vein was procured using an endoscopic vein harvesting technique. The vein was prepared in his usual fashion incisions were closed in usual manner. Simultaneously, a median sternotomy was employed and the left internal mammary artery was harvested in a skeletonized and pedicled fashion. The internal mammary artery had adequate caliber and flow. Heparin was administered to obtain an ACT of greater than 400 seconds. The pericardium was open, marsupialized, and pursestrings were placed in preparation for central cannulation. Central cannulation progressed with an aortic cannula in the distal ascending aorta, a cardioplegia needle in the proximal ascending aorta and a multistage venous cannula via the right atrium into the inferior vena cava. A retrograde coronary sinus catheter was placed via the right atrium as well. Cardiopulmonary bypass was established. The aorta was crossclamped and cardioplegia was administered. 1 L of cardioplegia was initially administered and then intermittent aliquots of cold blood were given between each distal anastomosis. With the heart arrested, mobilization of the transverse and oblique sinuses was performed with dissection and the radiofrequency ablation clamp was used to encircle the pulmonary veins just above the insertion to the left atrium. Pulmonary vein isolation utilizing radiofrequency energy was delivered to create an isolating lesion encircling the pulmonary vein ostia. The ligament of Andre had been divided to free up the region of interest. Once sufficient radiofrequency energy had been delivered and 6 separate applications of the device, the device was removed and a 40 mm AtriClip was placed at the base of the left atrial appendage for epicardial occlusion of the appendage. Care was taken to avoid impinging upon the circumflex or left main coronary arteries. We subsequently proceeded to grafting the distal coronary anastomoses. All distal anastomoses were performed first in a similar fashion as follows: The target coronary artery was identified, an arteriotomy was performed, and the bypass conduit was grafted end-to-side with a running 7-0 Prolene suture in an open fashion. Each anastomosis was probed prior to completion with a 1.5 mm probe and then infused with saline to assure adequate flow. The first bypass to be performed was a reverse saphenous vein graft graft to the posterior descending branch of the right coronary artery. This anastomosis proceeded smoothly and there was good flow. Next a greater saphenous vein graft was grafted to the first obtuse marginal coronary artery. This target was also adequate and the anastomosis was successful and had good flow. Next, reverse saphenous vein was grafted to the first diagonal coronary artery. This anastomosis proceeded smoothly and there was good flow. Last the left internal mammary artery was grafted to the mid LAD. This anastomosis proceeded smoothly as well. A hotshot was administered and the cross-clamp was removed. A partial occluding clamp was placed on the ascending aorta and 3 proximal anastomoses were constructed end-to-side with the ascending aorta. The vein grafts were grafted end-to-side with a running 5-0 Prolene suture. Care was taken to avoid kinking or twisting of the vein grafts. Adequate tension was visualized. Once these were completed, preparations were made to wean from cardiopulmonary bypass. We weaned and from cardiopulmonary bypass and protamine was administered. Decannulation ensued. Pursestrings were secured. Temporary pacing wires were applied. Chest tubes were inserted in the mediastinum and each pleural space. Once hemostasis was achieved ,we proceeded with closure. The sternum was reapproximated [id number] wires and the overlying tissues were closed in multiple layers. The patient was transported to the intensive care unit in serious but stable condition. documented in this encounter [facility] 04-01-2023 Note Cardiothoracic Surge ry/[facility] Progress Note PATIENT NAME: Regan Coughlin DATE: 04/01/23 HPI: 63 yo male with PMH of CAD & STEMI s/p PCI (RCA in 2019), Afib (on Eliquis), AAA s/p fenestrated EVAR with RTOR for bilateral groin hematomas, hematuria, HTN, HPL, ETOH, current smoker. He presented to OSH ED on 01/07/23 with worsening SOB x3 weeks. Echo shoed LVEF 50% with wall motion abnormalities. He did develop Afib RVR during hospitalization and reverted back to SR. Had a heart cath on 02/16/23 which showed multivessel CAD involving LM, prox LAD, and RCA. Surgery/Procedure: 03/25/23: CABG x4, MAZE, LAAL with atriclip, and LLE EVH with Dr. Villarreal Interval History: 04/01/23, POD# 7: VSS overnight, borderline hypotension yesterday, Hydralazine held. He remained in NSR on tele. On RA. P ambulating in hallways by himself. No acute complaints this am. Review of Systems Constitutional: Positive for fatigue. Negative for activity change, appetite change, diaphoresis and fever. Respiratory: Negative for cough, shortness of breath and wheezing. Cardiovascular: Negative for chest pain, palpitations and leg swelling. Gastrointestinal: Negative for abdominal distention, constipation and diarrhea. Skin: Negative for color change, pallor and rash. Objective: CT output cc/24hrs: 120 mL Last BM Date: 03/31/23 Vitals: BP: 122/75, MAP (mmHg): 89, BP Method: Automatic Heart Rate: 77 Resp: 18 Temp: 37.3 ?C (99.2 ?F), Temp Source: Temporal BMI (Calculated): 21.93 CXR: BMP: Recent Labs 03/30/23 0350 03/31/23 0517 04/01/23 0414 NA 135 132* 137 K 3.5 3.4* 3.9 CL 102 100 100 CO2 26 24 25 BUN 31* 32* 33* CREATININE 1.05 1.14 1.19 CALCIUM 8.4 8.9 9.1 MG 2.2 2.3 2.4* CBC: Recent Labs 03/30/23 0350 03/31/23 0517 04/01/23 0414 WBC 8.8 8.7 9.7 HGB 9.6* 10.2* 11.6* HCT 28.3* 29.7* 35.0* PLT 171 191 253 MCV 94.2 93.6 94.1 RDW 14.6* 14.6* 14.1 INR: Recent Labs 03/30/23 0350 INR 1.2* Physical Exam Cardiovascular: Rate and Rhythm: Normal rate and regular rhythm. Heart sounds: Normal heart sounds. No murmur heard. No friction rub. Pulmonary: Effort: Pulmonary effort is normal. Breath sounds: No decreased breath sounds. Musculoskeletal: Right lower leg: No edema. Left lower leg: No edema. Skin: General: Skin is warm and dry. Capillary Refill: Capillary refill takes less than 2 seconds. Findings: Bruising and ecchymosis present. Comments: Surgical Incisions: well approximate; clean dry with no drainage noted. Surrounding skin no redness, warmth, or signs of infection noted. Neurological: Mental Status: He is alert. Psychiatric: Behavior: Behavior is cooperative. Assessment: CAD s/p CABGx4 03/25 Afib (on Eliquis) s/p MAZE 03/25 AAA s/p fenestrated EVAR HTN HPL ETOH Right effusion Current smoker Hx. Hematuria Hx. Stent to RCA in 2019 Post operative Pulm Management: Normal Post-operative Course Acute blood loss anemia/consumptive thrombocytopenia Plan: Patient Status: Telemetry Continue med regimen ASA/Statin BB- Metoprolol 25mg BID Amio PO- taper at d/c Norvasc 5mg Remeron HS Folate & thiamine Hold hydralazine Change Lasix to PO Resume home Eliquis D/C CTs & IJ Endocrine signed off- OP f/u with PCP PT/OT: Home with Assist PRN and Outpatient PT Pulmonary hygiene: IS and Acapella GI prophy: PO protonix DVT prophy:TEDs, SCDs, and Patient on OAC/NOAC Disposition: TBD Central Line: [x]Yes [] No Arterial Line: []Yes [x] No Ramirez: []Yes [x] No Restraints: []Yes [x] No Patient discussed and plan of day developed from multidisciplinary rounds between Cardiothoracic Surgery (Cardiothoracic Surgeon, GEOVANNY) and Critical Care Attending Cardiac Core Medications: ASA, Statin, and BB EF: 03/25 - normal Blood Conservation: transfuse postop Railway Signalling Engineer: Dr. Matt Cherry [facility] 03-31-2023 Note Care Management Prog ress Note Patient remains in CTV ICU s/p CABG x 4 POD # 6. VSS, on RA, in and out of Afib on tele, chest tube to water seal, IV Amio transitioned to PO, decrease diuresis, R thoracentesis for 350ml removed yesterday, will need Eliquis re-started and PT/OT recommending home with assist/IPR. Patient from home with brother, patient lacks payor source for IPR. CTS GEOGRAPHIC INFORMATION SYSTEMS MANAGER aware. Discharge Milestones and Delays Expected Date/Time: 04/02/[address] discharge order Complete med reconciliation Case mgmt discharge readiness Clinical Stability Diagnsotic Workup Expected Discharge History Expected Date/Time Set By Reviewed At 04/02/2023 Marisabel Watts RN 03/31/2023 9:09 AM 04/02/2023 Marisabel Watts RN 03/30/2023 9:16 AM 03/30/2023 Marisabel Watts RN 03/26/2023 10:57 AM 03/30/2023 Laxmi Calivllo RN 03/25/2023 11:35 AM 03/30/2023 Deon Langston, DIRECTOR MARKET INTELLIGENCE - CONCRETE BLOCK MAKER 03/25/2023 5:58 AM Length of Stay (Days): 6 GMLOS: 5.8 [facility] 03-31-2023 Note Cardiothoracic Surge ry/CCM Progress Note PATIENT NAME: Regan Coughlin DATE: 03/31/23 HPI: 63 yo male with PMH of CAD & STEMI s/p PCI (RCA in 2019), Afib (on Eliquis), AAA s/p fenestrated EVAR with RTOR for bilateral groin hematomas, hematuria, HTN, HPL, ETOH, current smoker. He presented to OSH ED on 01/07/23 with worsening SOB x3 weeks. Echo shoed LVEF 50% with wall motion abnormalities. He did develop Afib RVR during hospitalization and reverted back to SR. Had a heart cath on 02/16/23 which showed multivessel CAD involving LM, prox LAD, and RCA. Surgery/Procedure: 03/25/23: CABG x4, MAZE, LAAL with atriclip, and LLE EVH with Dr. Villarreal Interval History: 03/31/23, POD# 6: Went into Afib RVR overnight, started on Amio, reverted to SR with conversion bradycardic/junctional beats. Afebrile, on RA. Right thoracentesis yesterday with 350 mL removed. Resting in chair, no acute complaints this am. Discussed importance of continuing to increase activity. Review of Systems Constitutional: Positive for activity change and fatigue. Negative for appetite change, diaphoresis and fever. Respiratory: Negative for cough, shortness of breath and wheezing. Cardiovascular: Negative for chest pain, palpitations and leg swelling. Gastrointestinal: Negative for abdominal distention, constipation and diarrhea. Skin: Negative for color change, pallor and rash. Objective: CT output cc/24hrs: 340 mL UO cc/24hrs: 2,525 mL Last BM Date: 03/30/23 Vitals: BP: 104/58, MAP (mmHg): 73, BP Method: Automatic Heart Rate: 73 Resp: 17 Temp: 37.2 ?C (98.9 ?F), Temp Source: Oral BMI (Calculated): 22.06 CXR: BMP: Recent Labs 03/29/23 0011 03/30/23 0350 03/31/23 0517 NA 138 135 132* K 3.1* 3.5 3.4* CL 103 102 100 CO2 26 26 24 BUN 37* 31* 32* CREATININE 1.08 1.05 1.14 CALCIUM 8.4 8.4 8.9 MG 2.2 2.2 2.3 CBC: Recent Labs 03/29/23 0011 03/30/23 0350 03/31/23 0517 WBC 10.7 8.8 8.7 HGB 9.6* 9.6* 10.2* HCT 27.8* 28.3* 29.7* PLT 140 171 191 MCV 93.3 94.2 93.6 RDW 14.8* 14.6* 14.6* INR: Recent Labs 03/30/23 0350 INR 1.2* Physical Exam Cardiovascular: Rate and Rhythm: Normal rate and regular rhythm. Heart sounds: Normal heart sounds. No murmur heard. No friction rub. Pulmonary: Effort: Pulmonary effort is normal. Breath sounds: Examination of the right-lower field reveals decreased breath sounds. Decreased breath sounds present. Musculoskeletal: Right lower leg: No edema. Left lower leg: No edema. Skin: General: Skin is warm and dry. Capillary Refill: Capillary refill takes less than 2 seconds. Findings: Bruising and ecchymosis present. Comments: Surgical Incisions: well approximate; clean dry with no drainage noted. Surrounding skin no redness, warmth, or signs of infection noted. Neurological: Mental Status: He is alert. Psychiatric: Behavior: Behavior is cooperative. Assessment: CAD s/p CABGx4 03/25 Afib (on Eliquis) s/p MAZE 03/25 AAA s/p fenestrated EVAR HTN HPL ETOH Right effusion Current smoker Hx. Hematuria Hx. Stent to RCA in 2019 Post operative Pulm Management: Normal Post-operative Course Acute blood loss anemia/consumptive thrombocytopenia Plan: Patient Status: Telemetry Continue current med regimen ASA/Statin BB- Metoprolol 25mg BID CCB & Hydralazine Remeron HS Folate & thiamine Start PO amio, stop IV gtt Decrease Lasix to 40mg IVP daily Will need home Eliquis resumed prior to d/c Continue CT-> water seal Endocrine signed off- OP f/u with PCP PT/OT: Home with Assist PRN and Outpatient PT Pulmonary hygiene: IS and Acapella GI prophy: PO protonix DVT prophy:TEDs, SCDs, and Heparin gtt Disposition: TBD Central Line: [x]Yes [] No Arterial Line: []Yes [x] No Ramirez: []Yes [x] No Restraints: []Yes [x] No Patient discussed and plan of day developed from multidisciplinary rounds between Cardiothoracic Surgery (Cardiothoracic Surgeon, GEOVANNY) and Critical Care Attending Cardiac Core Medications: ASA, Statin, and BB EF: 03/25 - normal Blood Conservation: transfuse postop Railway Signalling Engineer: Dr. Matt Cherry [facility] 03-30-2023 Note OCCUPATIONAL THERAPY [facility] Initial Evaluation Name/MRN: Regan Coughlin ([id number]) Evaluation Date: 03/30/2023 Date of : 1960 Admission Date: 03/25/2023 5:54 AM Age: 63 y.o. Room/Bed: T1-105/T1-105 A Discharge Recommendation: Inpatient Rehab Equipment Needed: TBD at next level of care Assessment IMPRESSION: Pt is a 63 y/o male admitted for CAD in [place] artery. CABG x 4 completed 03/25. Pt previously lived at home with brother and was ind in all ADL's and ambulation without a device. Pt currently requires CGA-supervision for most ADL's and for ambulation with rollator. Pt with difficulty maintaining precautions throughout session. Recommend Pt discharge to [facility] to continue to maximize independence in ADL's and ambulation. Performance Deficits /Impairments: Decreased Functional Mobility, Decreased ADL status, Decreased ROM, Decreased Strength, Decreased Endurance, Decreased Balance, and Decreased High Level IADLs Prognosis: Good Decision Making: Low Complexity Subjective Pt was supine in bed at beginning of session. S/OT introduced self and discussed purpose of OT evaluation. Pt agreeable to services. Pain: Pt denies any current pain. Past Medical History: Past Medical History: Diagnosis Date AAA (abdominal aortic aneurysm) (HCC) Afib (CMS/HCC) (HCC) Coronary artery disease 2019 2x stents, Dr. Eulalio Gutierrez at [facility] TIA (transient ischemic attack) Past Surgical History: Past Surgical History: Procedure Laterality Date CORONARY STENT PLACEMENT 02/2020 x2 IR ANGIOGRAM ENDOVASCULAR AORTIC REPAIR 05/20/2022 OPEN FEMORAL ARTERY EXPOSURE FOR DELIVERY OF ENDOVASCULAR PROSTHESIS OTHER SURGICAL HISTORY Bilateral 05/20/2022 Exploration groin, evacuation of hematoma WISDOM TOOTH EXTRACTION Admission Diagnosis: Patient Active Problem List Diagnosis Date Noted CAD in [place] artery 03/25/2023 Abdominal aortic aneurysm, without rupture, unspecified ([facility]) 05/19/2022 Infrarenal 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 ([facility]) 04/07/2022 Medical Precautions: No active isolations Proper PPE donned/doffed in accordance with facility standards. Fall Risk: [place] Fall Risk Score: 50 (High Risk) Precautions/Restrictions: Sternal Precautions: No Pushing, No Pulling, No Lifting Greater Than 10 lbs Lines/Drains/Airways: PIV, telemetry, continuous O2 Family/Caregiver Present: none Overall Cognitive Status: Exceptions - Safety judgement: decreased awareness of need for assistance and decreased awareness of need for safety - Sequencing: requires cues for some Overall Orientation Status: Oriented x4 Social/Functional History Patient admitted from home. Lives With: Other (brother) - Brother is tank truck mechanic and could be gone for up to 6 hours at a time. Brother also has back problems and cannot offer assistance Type of Home: single family home Home Layout: Single Level Home Home Access: Stairs to Enter with Rails (# of stairs: 15) Bathroom Shower/Tub: Tub/Shower Combo Toilet: Standard Home Equipment: none Homemaking Responsibilities: Independent Receives Help From: None Active Production Line Worker: Yes Prior Level of Function ADL Assistance: Independent Ambulation Assistance: Independent Transfer Assistance: Independent Objective ADLs Grooming: Supervision to wash hands while standing at sink UE Dressing: Contact Guard to don/doff hospital gown sitting EOB. Pt with difficulty maintaining precautions - required verbal cues. LE Dressing: Supervision to don/doff socks while sitting EOB using figure - 4 method Toileting: Contact Guard to complete anna and posterior hygiene. Pt able to manage clothing with supervision and clean posterior after BM with CGA. Upper Extremity Assessment AROM: Unable to fully assess due to precautions but WFL PROM: Unable to fully assess due to precautions but WFL Strength: Unable to fully assess due to precautions but WFL Vision: wears glasses for reading and and are NOT being used during the eval Hearing: normal Bed Mobility Supine to sit: Supervision Pt able to transfer from supine to sitting EOB with supervision. Good control of trunk and LE noted. HOB elevated and bed rails not utilized to maintain precautions. Transfers/Functional Mobility Sit to stand: Contact Guard Stand to sit: Contact Guard Toilet: Contact Guard Functional mobility: Supervision Pt stood from bed with CGA and ambulated to bathroom using rollator. Pt transferred on/off toilet without use of grab bar using CGA for increased support. Pt ambulated back to bed with supervision and sat with CGA. Good control of descent. No LOB noted throughout ambulation Device(s) used: rollator AM-PAC AM-PAC Inpatient Daily Activity Raw Score: 22 ADL Inpatient CMS G-Code Modifier: CJ Plan Pt would benefit from skilled acute OT services to address Strengthening, ROM, Balance Training, Functional Mobility Training, Endu (more content not included)... [facility] 03-30-2023 Note Care Management Prog ress Note Patient remains in CTV ICU s/p CABG x 4 POD # 5. Weaned to 2L NC, VSS, short episode of Afib on tele-self converted, BB increased, chest tube to water seal, endocrine signed off, thoracentesis today, sitter at bedside, and PT now recommending IPR. Patient from home with brother, lacks payor source for IPR/home care. TCC to follow. Discharge Milestones and Delays Expected Date/Time: 04/02/[address] discharge order Complete med reconciliation Case mgmt discharge readiness Clinical Stability Diagnsotic Workup Expected Discharge History Expected Date/Time Set By Reviewed At 04/02/2023 Marisabel Watts RN 03/30/2023 9:16 AM 03/30/2023 Marisabel Watts RN 03/26/2023 10:57 AM 03/30/2023 Laxmi Calvillo RN 03/25/2023 11:35 AM 03/30/2023 Deon Langston, DIRECTOR MARKET INTELLIGENCE - CONCRETE BLOCK MAKER 03/25/2023 5:58 AM Length of Stay (Days): 5 GMLOS: 5.8 [facility] 03-30-2023 Note Cardiothoracic Surge ry/CCM Progress Note PATIENT NAME: Regan Coughlin DATE: 03/30/23 HPI: 63 yo male with PMH of CAD & STEMI s/p PCI (RCA in 2019), Afib (on Eliquis), AAA s/p fenestrated EVAR with RTOR for bilateral groin hematomas, hematuria, HTN, HPL, ETOH, current smoker. He presented to OSH ED on 01/07/23 with worsening SOB x3 weeks. Echo shoed LVEF 50% with wall motion abnormalities. He did develop Afib RVR during hospitalization and reverted back to SR. Had a heart cath on 02/16/23 which showed multivessel CAD involving LM, prox LAD, and RCA. Surgery/Procedure: 03/25/23: CABG x4, MAZE, LAAL with atriclip, and LLE EVH with Dr. Villarreal Interval History: 03/30/23, POD# 5: VSS overnight, 2L NC. Had short episode of Afib overnight, self converted to NSR. More alert today, slept well overnight. Review of Systems Constitutional: Positive for activity change and fatigue. Negative for diaphoresis and fever. Respiratory: Negative for cough, shortness of breath and wheezing. Cardiovascular: Negative for chest pain, palpitations and leg swelling. Gastrointestinal: Negative for abdominal distention, constipation and diarrhea. Skin: Negative for color change, pallor and rash. Objective: CT output cc/24hrs: 300 mL UO cc/24hrs: 3,800 mL Last BM Date: 03/29/23 Vitals: BP: 91/62, MAP (mmHg): 73, BP Method: Automatic Heart Rate: 87 Resp: 14 Temp: 37.4 ?C (99.3 ?F), Temp Source: Bladder BMI (Calculated): 22.78 CXR: BMP: Recent Labs 03/28/23 0412 03/28/23 1827 03/29/23 0011 03/30/23 0350 NA 136 136 138 135 K 3.7 3.3* 3.1* 3.5 CL 104 104 103 102 CO2 22 25 26 26 BUN 32* 33* 37* 31* CREATININE 1.00 1.03 1.08 1.05 CALCIUM 8.9 8.7 8.4 8.4 MG 2.3 -- 2.2 2.2 CBC: Recent Labs 03/28/23 0412 03/28/23 0413 03/29/23 0011 03/30/23 0350 WBC 15.4* -- 10.7 8.8 HGB 9.3* 9.9 9.6* 9.6* HCT 27.3* -- 27.8* 28.3* PLT 138* -- 140 171 MCV 93.2 -- 93.3 94.2 RDW 15.2* -- 14.8* 14.6* INR: Recent Labs 03/30/23 0350 INR 1.2* Physical Exam Cardiovascular: Rate and Rhythm: Normal rate and regular rhythm. Heart sounds: Normal heart sounds. No murmur heard. No friction rub. Pulmonary: Effort: Pulmonary effort is normal. Breath sounds: Examination of the right-lower field reveals decreased breath sounds. Decreased breath sounds present. Musculoskeletal: Right lower leg: No edema. Left lower leg: No edema. Skin: General: Skin is warm and dry. Capillary Refill: Capillary refill takes less than 2 seconds. Findings: Bruising and ecchymosis present. Comments: Surgical Incisions: well approximate; clean dry with no drainage noted. Surrounding skin no redness, warmth, or signs of infection noted. Neurological: Mental Status: He is alert. Psychiatric: Behavior: Behavior is cooperative. Assessment: CAD s/p CABGx4 03/25 Afib (on Eliquis) s/p MAZE 03/25 AAA s/p fenestrated EVAR HTN HPL ETOH Right effusion Current smoker Hx. Hematuria Hx. Stent to RCA in 2019 Post operative Pulm Management: Normal Post-operative Course Acute blood loss anemia/consumptive thrombocytopenia Plan: Patient Status: Telemetry Continue current med regimen ASA/Statin BB- Metoprolol 25mg BID CCB & Hydralazine Lasix 40mg IV BID Folate & thiamine D/C CIWA protocol Add Remeron HS IR thoracentesis today Endocrine signed off- OP f/u with PCP PT/OT: Home with Assist PRN and Outpatient PT Pulmonary hygiene: IS and Acapella GI prophy: PO protonix DVT prophy:TEDs, SCDs, and Heparin gtt Disposition: TBD Central Line: [x]Yes [] No Arterial Line: []Yes [x] No Ramirez: []Yes [x] No Restraints: []Yes [x] No Patient discussed and plan of day developed from multidisciplinary rounds between Cardiothoracic Surgery (Cardiothoracic Surgeon, GEOVANNY) and Critical Care Attending Cardiac Core Medications: ASA, Statin, and BB EF: 03/25 - normal Blood Conservation: transfuse postop Railway Signalling Engineer: Dr. Matt Cherry [facility] 03-29-2023 Note [facility] Respiratory Care Department Progress Note As part of the Respiratory Assessment Program (RAP), the following Respiratory Therapist evaluation has been completed, including a chart review and clinical/physical assessment. Respiratory Therapist RAP Evaluation Guideline Points 0 1 2 3 4 Points Strongly Consider History Factor No Pulmonary conditions Stable Pulmonary condition(s) Surgery or Intervention that may impact Pulmonary system (at risk) Surgery or Intervention that is impacting Pulmonary system Active Exacerbation of Pulmonary Condition 1 Respiratory Pattern Regular, RR= 12-18 MARIO or Increased RR= 19-24 Irregular, or RR= 25-30 SOB, talk in short sentences, or RR= 31-35 Severe SOB, accessory muscle use, one word answers, or RR>35 0 Aerosol Med(s), High Flow O2 Breath Sounds Clear Diminished in 1 lobe Diminished in ? 2 lobes Adventitious breath sounds Coarse crackles, Wheezes, or Diminished in >2 lobes 2 Aerosol Med(s), Bronchial Hygiene, Hyperinflation Cough & Sputum Strong cough, no secretion retention or production Weak cough, no secretion retention or production Weak cough, w/ production (less often than Q2hr), or secretion retention No cough, w/ secretion retention or production (less often than Q2hr) Significant secretion production (more often than Q2hr) or mucus plug 1 Aerosol Med(s), Bronchial Hygiene, Hyperinflation Level of Activity Ambulatory Ambulatory with Assist Up in chair or edge of bed (dangle) Non-ambulatory, bedridden with active ROM Completely paralyzed or without active ROM 1 Triage 5 0-2 Triage 4 3-5 Triage 3 6-10 Triage 2 11-14 Triage 1 ?15 Total 5 Triage Score = 4 TRIAGE SCORING - SUGGESTED FREQUENCIES Aerosol Therapy Bronchial Hygiene Hyperinflation Triage Score Q4h & PRN 1 Q4hWA (QID) & PRN 2 TID & PRN 3 BID & PRN 4 PRN 5 Therapy(s) Indicated Yes/No Aerosol Medication y Hyperinflation Bronchial Hygiene High Flow Oxygen Flow Rates PEF (L/Sec) IVC FVC FEV1 FEV1/FVC Patient instructed and returned demonstration on use of MDI (with spacer, as appropriate) NO RT to enter/modify frequency of treatment order in EMR/EHR to match this RAP evaluation. Based on this RAP evaluation the following therapy is being initiated: Duoneb HHN At the following frequency: BID Comments: Thank you for involving Respiratory in the care of this patient, [facility] 03-27-2023 Note Care Management Prog ress Note Patient remains in CTV ICU s/p CABG x 4 POD # 2. Now on HFNC 15L, in NSR on tele, chest tubes to water seal, remains on Nipride, transfused PRBC, diuresis with IV lasix and PT recommending home with assist. Patient from home with brother, IVAN following, but patient lacks payor source. Discharge Milestones and Delays Expected Date/Time: 03/30/[address] discharge order Complete med reconciliation Case mgmt discharge readiness Clinical Stability Diagnsotic Workup Expected Discharge History Expected Date/Time Set By Reviewed At 03/30/2023 Mariasbel Watts RN 03/26/2023 10:57 AM 03/30/2023 Laxmi Calvillo RN 03/25/2023 11:35 AM 03/30/2023 Deon Langston, DIRECTOR MARKET INTELLIGENCE - CONCRETE BLOCK MAKER 03/25/2023 5:58 AM Length of Stay (Days): 2 GMLOS: No GMLOS Documented [facility] 03-27-2023 Note History Of Present I llness Regan Coughlin is a 63 y.o. male presenting with multivessel coronary artery disease. Past Medical History He has a past medical history of AAA (abdominal aortic aneurysm) (), Afib (CMS/HCC) (), Coronary artery disease (2019), and TIA (transient ischemic attack). Surgical History He has a past surgical history that includes Coronary stent placement (02/2020); [place] tooth extraction; IR angiogram endovascular aortic repair (05/20/2022); and Other surgical history (Bilateral, 05/20/2022). Social History He reports that he has been smoking cigarettes. He has a 7.50 pack-year smoking history. He has never used smokeless tobacco. He reports current alcohol use of about 4.0 standard drinks of alcohol per week. He reports that he does not use drugs. Allergies Patient has no known allergies. Medications Medications Prior to Admission Medication Sig Dispense Refill Last Dose aspirin 81 MG EC tablet Take 81 mg by mouth daily. 03/20/2023 bacitracin 500 UNIT/GM ointment Apply topically See administration instructions for [address] q-tip and swab inside nostrils the night before surgery and AM of surgery. 14 g 0 03/25/2023 at 0600 chlorhexidine (Peridex) 0.12 % solution Use 15 mL in the mouth or throat See administration instructions for 2 doses. Swish and spit the night before surgery and AM of surgery. 30 mL 0 03/25/2023 at 0600 atorvastatin (Lipitor) 80 MG tablet Take 80 mg by mouth Nightly. 03/20/2023 Eliquis 5 MG tablet Take 5 mg by mouth 2 times daily. 03/20/2023 furosemide (Lasix) 40 MG tablet Take 40 mg by mouth daily. 03/20/2023 MAGNESIUM PO Take 1 tablet by mouth daily. 03/20/2023 metoprolol tartrate (Lopressor) 25 MG tablet Take 25 mg by mouth 2 times daily. 03/20/2023 POTASSIUM CHLORIDE PO Take 1 tablet by mouth daily. 99 MG 03/20/2023 Review of Systems Physical Exam Last Recorded Vitals Blood pressure (!) 145/51, pulse 67, temperature 36.6 ?C (97.9 ?F), temperature source Temporal, resp. rate 21, height 1.676 m (5' 6), weight 72.9 kg (160 lb 11.5 oz), SpO2 90%. Reason for Visit: Surgical evaluation for multivessel coronary artery disease Assessment and plan Multivessel coronary artery disease including a left main trunk stenosis. Recommend revascularization of the LAD system as well as the circumflex system. This would likely include a large first obtuse marginal coronary artery and possibly the distal circumflex. The LAD would need to be revascularized as well. Additionally, right coronary artery will need to be considered for revascularization as well although this lesion is approximately 60%. Paroxysmal atrial fibrillation-we will hold Eliquis preoperatively. Recommend left atrial appendage clip as well as pulmonary vein isolation. No valvular abnormalities are seen on the echocardiogram. While the echo also does not comment on right ventricular dysfunction, there is some scarring of the inferior wall on the left ventriculogram, which we should consider during the intraoperative transesophageal echo. Would recommend [place] catheterization for this procedure. Preprocedurally, we will obtain renal artery studies, CT scan of the chest to assess the aorta, and carotid Dopplers to rule out concomitant carotid artery disease. The risk benefits and alternatives to surgery were discussed in detail with the patient and he wishes to proceed on an elective basis. History of Present Illness Regan Coughlin is a 63 y.o. male referred by Dr. Gutierrez for coronary revascularization. Per note, in February 2020 pt had presented to ED for acute onset chest discomfort. He was taken emergently to the cardiac catheterization lab with an ST elevation IL involving the inferior wall. He underwent cardiac catheterization angioplasty and stenting of the right coronary artery. He had mild residual disease noted in the left anterior descending artery territory. EF was normal at that time. Pt presented to ED on 01/07/23 with c/o worsening SOB for 3 weeks and palpitations. An echocardiogram was completed which demonstrated a normal EF of 50% and wall motion abnormality. While hospitalized he developed afib with RVR. He converted back to NSR and was discharged home on Metoprolol and Eliquis. Pt then underwent a heart catheterization on 02/16/23 which demonstrated left main coronary artery disease with severe proximal LAD stenosis and previously stented right coronary artery which is patent and mild left ventricular systolic dysfunction. Pt is current smoker. Pt is currently taking Eliquis. Pt is here now for an evaluation. Past Medical History Medical History Past Medical History: Diagnosis Date AAA (abdominal aortic aneurysm) Coronary artery disease 2019 2x stents, Dr. Eulalio Gutierrez at [facility] TIA (transient ischemic attack) Past Surgical History Surgical History Past Surgical History: Procedure Laterality Date CO (more content not included)... [facility] 03-27-2023 History and physical note Images from the original note were not included. History Of Present Illness Regan Coughlin is a 63 y.o. male presenting with multivessel coronary artery disease. Past Medical History He has a past medical history of AAA (abdominal aortic aneurysm) (), Afib (CMS/HCC) (), Coronary artery disease (2019), and TIA (transient ischemic attack). Surgical History He has a past surgical history that includes Coronary stent placement (02/2020); [place] tooth extraction; IR angiogram endovascular aortic repair (05/20/2022); and Other surgical history (Bilateral, 05/20/2022). Social History He reports that he has been smoking cigarettes. He has a 7.50 pack-year smoking history. He has never used smokeless tobacco. He reports current alcohol use of about 4.0 standard drinks of alcohol per week. He reports that he does not use drugs. Allergies Patient has no known allergies. Medications Medications Prior to Admission Medication Sig Dispense Refill Last Dose aspirin 81 MG EC tablet Take 81 mg by mouth daily. 03/20/2023 bacitracin 500 UNIT/GM ointment Apply topically See administration instructions for [address] q-tip and swab inside nostrils the night before surgery and AM of surgery. 14 g 0 03/25/2023 at 0600 chlorhexidine (Peridex) 0.12 % solution Use 15 mL in the mouth or throat See administration instructions for 2 doses. Swish and spit the night before surgery and AM of surgery. 30 mL 0 03/25/2023 at 0600 atorvastatin (Lipitor) 80 MG tablet Take 80 mg by mouth Nightly. 03/20/2023 Eliquis 5 MG tablet Take 5 mg by mouth 2 times daily. 03/20/2023 furosemide (Lasix) 40 MG tablet Take 40 mg by mouth daily. 03/20/2023 MAGNESIUM PO Take 1 tablet by mouth daily. 03/20/2023 metoprolol tartrate (Lopressor) 25 MG tablet Take 25 mg by mouth 2 times daily. 03/20/2023 POTASSIUM CHLORIDE PO Take 1 tablet by mouth daily. 99 MG 03/20/2023 Review of Systems Physical Exam Last Recorded Vitals Blood pressure (!) 145/51, pulse 67, temperature 36.6 C (97.9 F), temperature source Temporal, resp. rate 21, height 1.676 m (5' 6), weight 72.9 kg (160 lb 11.5 oz), SpO2 90%. Reason for Visit: Surgical evaluation for multivessel coronary artery disease Assessment and plan Multivessel coronary artery disease including a left main trunk stenosis. Recommend revascularization of the LAD system as well as the circumflex system. This would likely include a large first obtuse marginal coronary artery and possibly the distal circumflex. The LAD would need to be revascularized as well. Additionally, right coronary artery will need to be considered for revascularization as well although this lesion is approximately 60%. Paroxysmal atrial fibrillation-we will hold Eliquis preoperatively. Recommend left atrial appendage clip as well as pulmonary vein isolation. No valvular abnormalities are seen on the echocardiogram. While the echo also does not comment on right ventricular dysfunction, there is some scarring of the inferior wall on the left ventriculogram, which we should consider during the intraoperative transesophageal echo. Would recommend [place] catheterization for this procedure. Preprocedurally, we will obtain renal artery studies, CT scan of the chest to assess the aorta, and carotid Dopplers to rule out concomitant carotid artery disease. The risk benefits and alternatives to surgery were discussed in detail with the patient and he wishes to proceed on an elective basis. History of Present Illness Regan Coughlin is a 63 y.o. male referred by Dr. Gutierrez for coronary revascularization. Per note, in February 2020 pt had presented to ED for acute onset chest discomfort. He was taken emergently to the cardiac catheterization lab with an ST elevation IL involving the inferior wall. He underwent cardiac catheterization angioplasty and stenting of the right coronary artery. He had mild residual disease noted in the left anterior descending artery territory. EF was normal at that time. Pt presented to ED on 01/07/23 with c/o worsening SOB for 3 weeks and palpitations. An echocardiogram was completed which demonstrated a normal EF of 50% and wall motion abnormality. While hospitalized he developed afib with RVR. He converted back to NSR and was discharged home on Metoprolol and Eliquis. Pt then underwent a heart catheterization on 02/16/23 which demonstrated left main coronary artery disease with severe proximal LAD stenosis and previously stented right coronary artery which is patent and mild left ventricular systolic dysfunction. Pt is current smoker. Pt is currently taking Eliquis. Pt is here now for an evaluation. Past Medical History Medical History Past Medical History: Diagnosis Date AAA (abdominal aortic aneurysm) Coronary artery disease 2019 2x stents, Dr. Eulalio Gutierrez at [facility] TIA (transient ischemic attack) Past Surgical History Surgical History Past Surgical History: Procedure Laterality Date CORONARY STENT PLACEMENT 02/2020 x2 IR ANGIOGRAM ENDOVASCULAR AORTIC REPAIR 05/20/2022 OPEN FEMORAL ARTERY EXPOSURE FOR DELIVERY OF ENDOVASCULAR PROSTHESIS OTHER SURGICAL HISTORY Bilateral 05/20/2022 Exploration groin, evacuation of hematoma WISDOM TOOTH EXTRACTION Family History Family History Family History Problem Relation Name Age of Onset No Known Problems Mother No Known Problems Father Social History Social History Tobacco Use Smoking status: Every Day Packs/day: 0.25 Years: 30.00 Additional pack years: 0.00 Total pack years: 7.50 Types: Cigarettes Smokeless tobacco: Never Tobacco comments: 4 ciggs per day Vaping Use Vaping Use: Never used Substance Use Topics Alcohol use: Yes Alcohol/week: 4.0 standard drinks of alcohol Types: 4 Shots of liquor per week Drug use: Never Allergies No Known Allergies Medications Current Outpatient Medications: aspirin 81 MG EC tablet, Take 81 mg by mouth daily., Disp: , Rfl: atorvastatin (Lipitor) 80 MG tablet, Take 80 mg by mouth Nightly., Disp: , Rfl: Eliquis 5 MG tablet, Take 5 mg by mouth 2 times daily., Disp: , Rfl: furosemide (Lasix) 40 MG tablet, Take 40 mg by mouth daily., Disp: , Rfl: metoprolol tartrate (Lopressor) 25 MG tablet, Take 25 mg by mouth 2 times daily., Disp: , Rfl: POTASSIUM CHLORIDE PO, Take 1 tablet by mouth daily., Disp: , Rfl: clopidogrel (Plavix) 75 MG tablet, Take 75 mg by mouth daily., Disp: , Rfl: Review of Systems Review of Systems Constitutional: Positive for fatigue. Cardiovascular: Positive for palpitations. All other systems reviewed and are negative. Physical Exam Vitals: There were no vitals taken for this visit. Constitutional: General: Not in acute distress. Appearance: Normal appearance. Not toxic-appearing. Ear, nose, mouth: Bilateral external ear and nose normal. Nose: Nose normal. Mouth: Appearance normal, no bleeding, moist mucus membranes Eyes: General: No scleral icterus. No discharge from bilateral eyes Extraocular Movements: Extraocular movements intact. Pupils equal and reactive bilaterally Cardiovascular: Heart: Regular rhythm. Normal heart sounds. Edema: no edema in bilateral lower extremities Pulmonary: Effort: Pulmonary effort is normal. No respiratory distress. Breath sounds: Normal breath sounds. No wheezing. Chest wall: No tenderness. Abdominal: Appearance: Not distended Palpations: There is no abdominal tenderness, no guarding. Musculoskeletal: Bilateral upper and lower extremities: Normal range of motion, no deformity Head: Normocephalic and atraumatic. Neck: Normal range of motion and neck supple. No muscular tenderness. Lymphadenopathy: Cervical: No cervical adenopathy. Skin: General: Skin is warm and dry. Coloration: Skin is not jaundiced. Neurological: General: No focal deficit present. Cranial Nerves: No obvious cranial nerve deficit. Psychiatric: Mood and Affect: Mood normal. Thought Content: Thought content normal. Patient has good judgement and insight Mental Status: Alert and oriented to place, person, and time. Labs Auto WBC Date/Time Value Ref Range Status 05/22/2022 12:26 AM 8.5 3.6 - 10.7 10*3/uL Final 05/20/2022 08:35 PM 15.4 (H) 3.6 - 10.7 10*3/uL Final Hemoglobin Date/Time Value Ref Range Status 05/22/2022 11:44 AM 10.7 (L) 13.0 - 18.0 g/dL Final 05/22/2022 12:26 AM 11.0 (L) 13.0 - 18.0 g/dL Final Platelets Date/Time Value Ref Range Status 05/22/2022 12:26 AM 153 140 - 440 10*3/uL Final 05/20/2022 08:35 PM 183 140 - 440 10*3/uL Final SODIUM Date/Time Value Ref Range Status 08/14/2022 08:59 AM 143 135 - 145 mmol/L Final 05/22/2022 12:26 AM 136 135 - 145 mmol/L Final POTASSIUM Date/Time Value Ref Range Status 08/14/2022 08:59 AM 4.5 3.5 - 5.1 mmol/L Final 05/22/2022 12:26 AM 3.7 3.5 - 5.1 mmol/L Final CREATININE Date/Time Value Ref Range Status 08/14/2022 08:59 AM 0.64 (L) 0.66 - 1.25 mg/dL Final 05/22/2022 12:26 AM 0.67 0.66 - 1.25 mg/dL Final Imaging Heart Catheterization 02/16/23 TTE 01/08/23 TTE 10/30/21 Patient Care Team: PCP: Sophie Craft MD Cardiology: Eulalio Gutierrez MD Disclaimer INFORMED CONSENT:The nature and purpose of the proposed treatment or procedure have been discussed. The risks and benefits of the proposed treatment or procedures have been reviewed. Alternatives have been reviewed in addition to the risks and benefits of not receiving treatments or undergoing procedures. Pursuant to this discussion, the patient agrees to undergo the proposed treatment or procedure. Captured images seen in this note from are not a substitute for a comprehensive interpretation of the entire data set as reflected by the interpreting physician with regard to radiology, echocardiography, and other diagnostic images. This note may have been dictated using ProMed Practice Edition 2.6 and/or Acorio Voice Recognition Feature. The document was proofread, however unrecognized voice recognition glove turner and former errors may be present. Instructions AVS - Outpatient (Automatic SnapShot taken 02/24/2023) Additional Documentation Vitals: BP 129/77 (BP Location: Left arm, Patient Position: Sitting, BP Cuff Size: Large adult) Pulse 74 Ht 1.676 m (5' 6) Wt 67.1 kg (148 lb) BMI 23.89 kg/m BSA 1.77 m More Vitals Encounter Info: Billing Info, History, Allergies, Detailed Report, Developmental Communications View All Conversations on this Encounter No questionnaires available. Orders Placed None Medication Changes None Medication List Visit Diagnoses Coronary artery disease involving [place] heart, unspecified vessel or lesion type, unspecified whether angina present I25.10 Paroxysmal atrial fibrillation (HCC) I48.0 Problem List Images from the original note were not included. Comprehensive Pre Surgical History and Physical ? Name: Regan Coughlin : 1960 (Age-63 y.o.) Date of Service: Pt seen/examined on 03/20/2023 Procedure Information Date/Time: 03/25/23 0700 Procedures: CABG, WITH ATRIAL ABLATION AND CLIP, TRANSESOPHAGEAL ECHOCARDIOGRAM (Chest) Echocardiography transesophageal real-time Location: [facility] OR [address] [place] [address] Operating Room Surgeons: Alfonso Villarreal MD Chief Complaint: Atherosclerotic heart disease of [place] coronary artery without angina pectoris [I25.10] Unspecified atrial fibrillation (HCC) [I48.91] ASSESSMENT/PLAN: Patient is considered high risk for this high risk procedure/surgery () with no reducible risk factors. Based on the above evaluation, the benefits of the planned procedure likely exceed the risks. The patient is medically optimized to proceed with the planned procedure without any further cardiopulmonary testing. 1) Atherosclerotic heart disease of [place] coronary artery without angina pectoris [I25.10] Unspecified atrial fibrillation (HCC) [I48.91] - Managed per surgery - History and Physical exam - Anesthesia Lab Protocol Orders - Follows with Dr. Gutierrez for cardiology - History of stents yes . Patient instructed to continue aspirin uninterrupted as discontinuation of aspirin in the presence of a coronary stent has been associated with anna-operative stent thrombosis, myocardial infarction and . Patient verbalized understanding rationale and instruction. - Oral anticoagulation with Eliquis - will be held for 5 days as per PAT protocol Toxic Drug Monitoring: Drug: Eliquis Route: Oral Monitoring: EKG - yes VS - BP 129/72 Pulse 62 Temp 36.2 C (97.2 F) (Temporal) Resp 16 Ht 1.676 m (5' 6) Wt 68 kg (150 lb) SpO2 100% BMI 24.21 kg/m Labs: BMP, CBC 2) Abdominal aortic aneurysm - infrarenal - from 05-20-22 CT abd/pel: FINDINGS: 1. 6.6 cm abdominal aortic aneurysm with aortoiliac endograft and bilateral renal artery stents appearing in good position. 3) TIA - deficit - No. 4) Current Smoker - Encouraged nicotine cessation. - Per anesthesia protocol to not use nicotine products within 24 hours prior to surgery. - Patient aware surgery could be cancelled if using within 24 hours. Patient verbalized understanding. - 0.25 pack(s) a day for about 30 years - EKG as below - CBC pending 5) HLD -statin therapy - Yes, lipitor -lifestyle modifications encouraged No results found for: CHOL No results found for: HDL No results found for: LDLCALC No results found for: TRIG No results found for: CHOLHDL Visit Type: Pre-Admission Testing Visit Labs Ordered: YES - PER PAT PROTOCOL Sleep Referral Ordered: YES - POSITIVE SCREEN PER SLEEP REFERRAL PROTOCOL Total time spent (which include face to face and non face to face encounters) : 45 minutes PAT Protocol referenced includes: 1. Anesthesia Lab Protocol Orders 2. Perioperative Cardiovascular Risk Assessment 3. Anesthesia Assessment 4. Pain Assessment and Acute Pain Service Consult (if appropriate) 5. Medical Clearance/Consult from Internal Medicine ([facility]) 6. Shower/Wash Order (for designated surgeries) 7. EM Screen and Sleep Clinic Referral (if appropriate) History Of Present Illness: Case: [id number] Date/Time: 03/25/23 0700 Procedures: CABG, WITH ATRIAL ABLATION AND CLIP, TRANSESOPHAGEAL ECHOCARDIOGRAM (Chest) [30279 CPT(R)] Echocardiography transesophageal real-time [01271 CPT(R)] Anesthesia type: General Diagnosis: Atherosclerotic heart disease of [place] coronary artery without angina pectoris [I25.10] Unspecified atrial fibrillation (HCC) [I48.91] From Dr. Villarreal's 02-24-23 office note: Regan Coughlin is a 63 y.o. male referred by Dr. Gutierrez for coronary revascularization. Per note, in February 2020 pt had presented to ED for acute onset chest discomfort. He was taken emergently to the cardiac catheterization lab with an ST elevation IL involving the inferior wall. He underwent cardiac catheterization angioplasty and stenting of the right coronary artery. He had mild residual disease noted in the left anterior descending artery territory. EF was normal at that time. Pt presented to ED on 01/07/23 with c/o worsening SOB for 3 weeks and palpitations. An echocardiogram was completed which demonstrated a normal EF of 50% and wall motion abnormality. While hospitalized he developed afib with RVR. He converted back to NSR and was discharged home on Metoprolol and Eliquis. Pt then underwent a heart catheterization on 02/16/23 which demonstrated left main coronary artery disease with severe proximal LAD stenosis and previously stented right coronary artery which is patent and mild left ventricular systolic dysfunction. Past Medical History: Past Medical History: No date: AAA (abdominal aortic aneurysm) ([facility]) No date: Afib (CMS/HCC) ([facility]) 2019: Coronary artery disease Comment: 2x stents, Dr. Eulalio Gutierrez at [facility] No date: TIA (transient ischemic attack) Past Surgical History: Past Surgical History: 02/2020: CORONARY STENT PLACEMENT Comment: x2 05/20/2022: IR ANGIOGRAM ENDOVASCULAR AORTIC REPAIR Comment: OPEN FEMORAL ARTERY EXPOSURE FOR DELIVERY OF ENDOVASCULAR PROSTHESIS 05/20/2022: OTHER SURGICAL HISTORY; Bilateral Comment: Exploration groin, evacuation of hematoma No date: WISDOM TOOTH EXTRACTION Medications Prior to Admission: Prior to Admission medications Medication Sig Start Date End Date Taking? Authorizing Provider aspirin 81 MG EC tablet Take 81 mg by mouth daily. Historical Provider, atorvastatin (Lipitor) 80 MG tablet Take 80 mg by mouth Nightly. 03/10/22 Historical Provider, bacitracin 500 UNIT/GM ointment Apply topically See administration instructions for [address] on q-tip and swab inside nostrils the night before surgery and AM of surgery. 02/25/23 MARSIABEL Zuñiga CNP chlorhexidine (Peridex) 0.12 % solution Use 15 mL in the mouth or throat See administration instructions for 2 doses. Swish and spit the night before surgery and AM of surgery. 02/25/23 MARISABEL Zuñiga CNP clopidogrel (Plavix) 75 MG tablet Take 75 mg by mouth daily. 03/10/22 Historical Provider, Eliquis 5 MG tablet Take 5 mg by mouth 2 times daily. 01/23/23 Historical Provider, furosemide (Lasix) 40 MG tablet Take 40 mg by mouth daily. 01/21/23 Historical Provider, metoprolol tartrate (Lopressor) 25 MG tablet Take 25 mg by mouth 2 times daily. 01/23/23 Historical Provider, POTASSIUM CHLORIDE PO Take 1 tablet by mouth daily. 02/12/23 Historical Provider, CHRONIC NARCOTIC USE: No Allergies: Patient has no known allergies. If patient has opioid allergy, is it okay to take Acetaminophen: N/A Social History: TOBACCO: reports that he has been smoking cigarettes. He has a 7.50 pack-year smoking history. He has never used smokeless tobacco. ETOH: reports current alcohol use of about 4.0 standard drinks of alcohol per week. Social History Substance and Sexual Activity Drug Use Never Family History: Family History Problem Relation Name Age of Onset No Known Problems Mother No Known Problems Father REVIEW OF SYSTEMS: Review of Systems Constitutional: Negative for chills and fever. Respiratory: Positive for shortness of breath (MARIO, improving with medicine, unsure if statin or Eliquis). Negative for cough. Cardiovascular: Positive for palpitations (better). Negative for chest pain. Gastrointestinal: Negative for abdominal pain, diarrhea and vomiting. Genitourinary: Negative for dysuria and hematuria. Skin: Negative for rash and wound. Neurological: Negative for dizziness and syncope. Physical Exam: Physical Exam Vitals reviewed. Constitutional: Appearance: Normal appearance. HENT: Head: Normocephalic and atraumatic. Nose: Nose normal. Mouth/Throat: Mouth: Mucous membranes are moist. Pharynx: Oropharynx is clear. Cardiovascular: Rate and Rhythm: Normal rate and regular rhythm. Pulses: Radial pulses are 2+ on the left side. Heart sounds: Normal heart sounds. No murmur heard. Pulmonary: Effort: Pulmonary effort is normal. Breath sounds: No wheezing or rhonchi. Abdominal: General: Bowel sounds are normal. Palpations: Abdomen is soft. There is no pulsatile mass. Tenderness: There is no abdominal tenderness. Musculoskeletal: Cervical back: Normal range of motion and neck supple. Right lower leg: No edema. Left lower leg: No edema. Comments: Moves all extremities Skin: General: Skin is warm and dry. Capillary Refill: Capillary refill takes less than 2 seconds. Findings: No rash. Neurological: Mental Status: He is alert and oriented to person, place, and time. Sensory: Sensation is intact. Motor: Motor function is intact. Psychiatric: Mood and Affect: Mood and affect normal. Vitals: Vitals Value Taken Time BP 129/72 03/20/23 1103 Temp 36.2 C (97.2 F) 03/20/23 1103 Pulse 62 03/20/23 1103 Resp 16 03/20/23 1103 SpO2 100 % 03/20/23 1103 Labs: Lab Results Component Value Date WBC 8.5 05/22/2022 HGB 10.7 (L) 05/22/2022 HCT 29.3 (L) 05/22/2022 MCV 96.5 05/22/2022 PLT 153 05/22/2022 Lab Results Component Value Date NA 143 08/14/2022 K 4.5 08/14/2022 CL 105 08/14/2022 CO2 30 08/14/2022 BUN 16 08/14/2022 CREATININE 0.64 (L) 08/14/2022 GLUCOSE 95 08/14/2022 CALCIUM 9.3 08/14/2022 PROT 7.8 05/13/2022 ALKPHOS 97 05/13/2022 AST 27 05/13/2022 ALT 15 05/13/2022 EGFR >90.0 08/14/2022 Adin's Simple Cardiac Risk Index: ADIN'S SIMPLE CARDIAC RISK SCORE: 4 Interpretation: 0 Points Class I 0.5% 1 Point Class II 1.3% 2 Points Class III 3.6% 3+ Points Class IV 9.1% PAT Pain Score: 0 Postop Pain Management Plan (Pain consult ordered?): Pain consult not indicated at this time ? EKG: Encounter Date: 03/20/23 ECG 12 lead Result Value Heart Rate 74 QRSD Interval 95 QT Interval 427 QTC Interval 473 P Radcliff -5 QRS Radcliff 57 T Wave Radcliff 102 SD Interval 145 Impression Sinus rhythm Consider left ventricular hypertrophy Nonspecific T abnormalities, lateral leads Heart Catheterization 02/16/23 TTE 01/08/23 METS: >4 - Yes Electronically signed by: Danae Gtz NP Date: 03/20/2023 at 11:35 AM documented in this encounter [facility] 03-26-2023 Note PHYSICAL THERAPY [facility] Initial Evaluation Name/MRN: Regan Coughlin ([id number]) Evaluation Date: 03/26/2023 Date of : 1960 Admission Date: 03/25/2023 5:54 AM Age: 63 y.o. Room/Bed: T1-105/T1-105 A Discharge Recommendation: Home with Assist PRN and Outpatient PT (cardiac rehab) Equipment Needed: TBD Assessment IMPRESSION: Patient is a 63 yo male admitted due to CAD s/p CABG x4 with atri-clip placement and Maze procedure on 03/25. Diagnosis: CAD s/p CABG x4 with atri-clip placement and Maze procedure on 03/25 Prognosis: good Performance Deficits /Impairments: Increased Pain, Decreased Functional Mobility, Decreased ADL status, Decreased Endurance, and Decreased Balance Decision Making: Medium Complexity Subjective RN cleared patient for PT eval. Patient awake in bed, appears slightly agitated but agreeable to therapy. Pain: 0-10 pain scale: 12/10 Location: sternum Past Medical History: Past Medical History: Diagnosis Date AAA (abdominal aortic aneurysm) ([facility]) Afib (CMS/HCC) (HCC) Coronary artery disease 2019 2x stents, Dr. Eulalio Gutierrez at [facility] TIA (transient ischemic attack) Past Surgical History: Past Surgical History: Procedure Laterality Date CORONARY STENT PLACEMENT 02/2020 x2 IR ANGIOGRAM ENDOVASCULAR AORTIC REPAIR 05/20/2022 OPEN FEMORAL ARTERY EXPOSURE FOR DELIVERY OF ENDOVASCULAR PROSTHESIS OTHER SURGICAL HISTORY Bilateral 05/20/2022 Exploration groin, evacuation of hematoma WISDOM TOOTH EXTRACTION Admission Diagnosis: Patient Active Problem List Diagnosis Date Noted CAD in [place] artery 03/25/2023 Abdominal aortic aneurysm, without rupture, unspecified ([facility]) 05/19/2022 Infrarenal 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 ([facility]) 04/07/2022 Medical Precautions: No active isolations Proper PPE donned/doffed in accordance with facility standards. Fall Risk: [place] Fall Risk Score: 50 (High Risk) Precautions/Restrictions: Sternal Precautions: no lifting more than 10lbs, modified UE precautions with move in the tube Lines/Drains/Airways: tele, continuous pulse ox, chest tube, ramirez, 4L O2 NC, introducer R IJ, art line RUE Family/Caregiver Present: none Overall Cognitive Status: WFL Overall Orientation Status: Oriented x4 Vision: not assessed this session Hearing: normal Social/Functional History Patient admitted from home. 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 Patient is typically indep with all IADLs, ADLs and mobility without a device. Objective Lower Extremity Assessment AROM: WFL PROM: WFL Strength: WFL Bed Mobility: Supine to sit: Min Assist Sit to supine: Min Assist Scooting: SBA (seated scoot to EOB) HOB elevated, increased time to perform, cues for sequencing and to maintain sternal precautions, especially with RUE due to art line. Patient denied dizziness upon sitting. Transfers Sit to stand: Contact Guard Stand to sit: Contact Guard From EOB, cues for sternal precautions Ambulation Ambulation 1 Assistive device(s) used: Nezzie Assist level: Contact Guard Distance (ft): 60 Quality of gait: No LOB, narrow MADDIE, slow drew, mild dyspnea, O2 between 87-91% on 4L, cues for pursed-lip breathing and upright posture. Reported exertion at 03/16. Nurse present to assist with line mgmt. Outcome Measures AM-PAC How much HELP from another person do you currently need Turning from your back to your side while in a flat bed without using bedrails?: A Little Moving from lying on your back to sitting on the side of a flat bed without using bedrails?: A Little Moving to and from a bed to a chair (including a wheelchair)?: A Little Standing up from a chair using your arms (wheelchair or bedside chair)?: A Little Walking in a hospital room?: A Little Stair climbing assessed?: No AM-PAC Inpatient Mobility Raw Score (No Stairs) : 15 JH-HLM -HL Score: Walked 25 ft or more (i.e. walked outside of room) Plan Pt would benefit from skilled acute PT services to address Strengthening, Balance Training, Functional Mobility Training, Endurance Training, Gait Training, Stair Training, Safety Education and Training, Patient/Caregiver Training, Equipment Evaluation/Education, and chest PT, HEP . Frequency: 5x/week for 2 weeks Barriers: Pain, Decreased endurance, and Stairs at home Safety/Education Safety Safety Devices in place: call light within reach, left in bed, patient (more content not included)... [facility] 03-26-2023 Note Nutrition Assessment Type and Reason for Visit: Initial, Consult, Patient Education (s/p open heart surgery) Nutrition Recommendations/Plan: Recommend to begin p.o. diet as soon as medically appropriate Suggest goal of KELLY diet Per MNT protocol, will order Ensure Surgery BID (to be delivered when diet allows) to promote post-op healing and adequate p.o. intake Provided heart healthy diet handout with [facility] [address] phone number for reference. Will return (as able) to assess education needs prior to discharge RD will monitor diet progression, p.o. intake, weight, overall nutrition status and will follow weekly Malnutrition Assessment: Malnutrition Status: At risk for malnutrition (Comment) Context: Acute Illness Findings of the 6 clinical characteristics of malnutrition: Energy Intake: Mild decrease in energy intake (Comment) Weight Loss: (9.6% weight loss in one year- not significant for malnutrition) Body Fat Loss: No significant body fat loss Muscle Mass Loss: Mild muscle mass loss Temples (temporalis) Fluid Accumulation: Mild Extremities (? 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 He presented to [facility]SH ED on 01/07/23 with worsening SOB x3 weeks. Echo shoed LVEF 50% with wall motion abnormalities. He did develop Afib RVR during hospitalization and reverted back to SR. Had a heart cath on 02/16/23 which showed multivessel CAD involving LM, prox LAD, and RCA. He presented 03/25/23 for planned surgery and underwent CABG x4. POD #1. Extubated. On CIWA. Pt is sitting in chair with emesis bag on lap at time of RD visit; he endorses nausea, remains NPO. Pt reports he was eating well prior to admission, although does admit to weight loss from prior documented weight of 178# in February last year. Pt reports he had surgery in April and never fully regained his appetite which has resulted in gradual, unintended weight loss. Pt does not use ONS at home, but is agreeable to trying it here. He follows a general diet. RD provided heart healthy diet handout with [facility] [address] phone number. Estimated Daily Nutrient Needs: Energy Requirements Based On: Kcal/kg Weight Used for Energy Requirements: Vaughn (25-30 kcal/kg) Weight for Energy Calculation (kg): 64.4 kg Total Energy Requirements (kcals/day): 5318-7957 Weight Used for Protein Requirements: Vaughn (1.2-1.5 g/kg) Weight in Kg Used for Protein Requirements: 64.4 kg Estimated Total Protein (g/day): 77-97 Estimated Daily Total Fluid (ml/day): per MD Nutrition Related Findings: Nutrition History: Independent of feeding. Teeth: Missing teeth GI symptoms: Decreased appetite and Nausea. Sai Scale Score: 14 .Wound Type: Surgical Incision Net IO Since Admission: 2,707.01 mL [03/26/23 1203] Edema: RUE Edema: None, LUE Edema: None, RLE Edema: Non-pitting, LLE Edema: Non-pitting Bowel Sounds (All Quadrants): Audible, Present Abdomen Inspection: Soft, Rounded Labs and meds reviewed: acetaminophen, 1,000 mg, Oral, q8h aspirin, 81 mg, Oral, Daily atorvastatin, 80 mg, Oral, Nightly ceFAZolin, 2,000 mg, IntraVENous, q8h chlorhexidine, 15 mL, Mouth/Throat, BID folic acid, 1 mg, Oral, Daily heparin, 5,000 Units, SubCUTAneous, BID [START ON 03/27/2023] influenza, 0.5 mL, IntraMUSCular, Once insulin lispro, 0-6 Units, SubCUTAneous, Q4H [Held by provider] insulin lispro, 4 Units, SubCUTAneous, TID WC Lidocaine, 1 patch, Topical, Daily mupirocin, , Nasal, BID pantoprazole, 40 mg, Oral, qAM AC polyethylene glycol (PEG) 3350, 17 g, Oral, Daily senna-docusate sodium, 2 tablet, Oral, Nightly sodium chloride 0.9%, 10 mL, IntraVENous, 2 times per day thiamine, 100 mg, Oral, Daily insulin regular, 1-50 Units/hr, Last Rate: 2 Units/hr (03/26/23 1000) lactated ringers, 250 mL, Last Rate: Stopped (03/26/23 0308) nitroprusside, 0.3-3 mcg/kg/min, Last Rate: 0.75 mcg/kg/min (03/26/23 1142) BMP: Recent Labs 03/25/23 1113 03/26/23 0413 NA 137 138 K 3.9 4.6 CL 107 105 CO2 21* 19* BUN 15 24* CREATININE 1.04 1.46* GLUCOSE 136* 126* CALCIUM 8.5 8.8 MG 3.5* 2.8* PHOS 4.5 -- Recent Labs 03/26/23 0524 03/26/23 0616 03/26/23 0717 03/26/23 0805 03/26/23 0947 03/26/23 1138 POCGLU 146* 143* 151* 132* 132* 145* Lab Results Component Value Date HGBA1C 4.2 03/20/2023 Current Nutrition Therapies: NPO diet Current Oral Intake Average Meal Intake: NPO Average Supplements Intake: NPO Anthropometric Measures: Height: 167.6 cm (5' 6) Current Body Weight: 73.3 kg (161 lb 9.6 oz) (03/26) Admission Body Weight: 68 kg (150 lb) (03/25) Usual Body Weight: (178# on 03/26/23, 169# on 05/13/22, 155# on 01/07/23) Vaughn Body Weight (lbs) (Calculated): 142 lbs Vaughn Body Weight (Kg) (Calculated): 65 kg (more content not included)... [facility] 03-26-2023 Note Received referral an d reviewed chart. Phase II Cardiac Rehab Referral discussed with Regan Coughlin. Patient prefers cardiac rehab at [facility]. Given information on cardiac rehab at preferred location. [facility] 03-26-2023 Consult note Associated Order (s): IP CONSULT TO DIETITIAN Nutrition Assessment Type and Reason for Visit: Initial, Consult, Patient Education (s/p open heart surgery) Nutrition Recommendations/Plan: Recommend to begin p.o. diet as soon as medically appropriate Suggest goal of KELLY diet Per MNT protocol, will order Ensure Surgery BID (to be delivered when diet allows) to promote post-op healing and adequate p.o. intake Provided heart healthy diet handout with [facility] [address] phone number for reference. Will return (as able) to assess education needs prior to discharge RD will monitor diet progression, p.o. intake, weight, overall nutrition status and will follow weekly Malnutrition Assessment: Malnutrition Status: At risk for malnutrition (Comment) Context: Acute Illness Findings of the 6 clinical characteristics of malnutrition: Energy Intake: Mild decrease in energy intake (Comment) Weight Loss: (9.6% weight loss in one year- not significant for malnutrition) Body Fat Loss: No significant body fat loss Muscle Mass Loss: Mild muscle mass loss Temples (temporalis) Fluid Accumulation: Mild Extremities (? 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 He presented to OSH ED on 01/07/23 with worsening SOB x3 weeks. Echo shoed LVEF 50% with wall motion abnormalities. He did develop Afib RVR during hospitalization and reverted back to SR. Had a heart cath on 02/16/23 which showed multivessel CAD involving LM, prox LAD, and RCA. He presented 03/25/23 for planned surgery and underwent CABG x4. POD #1. Extubated. On CIWA. Pt is sitting in chair with emesis bag on lap at time of RD visit; he endorses nausea, remains NPO. Pt reports he was eating well prior to admission, although does admit to weight loss from prior documented weight of 178# in February last year. Pt reports he had surgery in April and never fully regained his appetite which has resulted in gradual, unintended weight loss. Pt does not use ONS at home, but is agreeable to trying it here. He follows a general diet. RD provided heart healthy diet handout with [facility] [address] phone number. Estimated Daily Nutrient Needs: Energy Requirements Based On: Kcal/kg Weight Used for Energy Requirements: Vaughn (25-30 kcal/kg) Weight for Energy Calculation (kg): 64.4 kg Total Energy Requirements (kcals/day): 9359-2579 Weight Used for Protein Requirements: Vaughn (1.2-1.5 g/kg) Weight in Kg Used for Protein Requirements: 64.4 kg Estimated Total Protein (g/day): 77-97 Estimated Daily Total Fluid (ml/day): per MD Nutrition Related Findings: Nutrition History: Independent of feeding. Teeth: Missing teeth GI symptoms: Decreased appetite and Nausea. Sai Scale Score: 14 .Wound Type: Surgical Incision Net IO Since Admission: 2,707.01 mL [03/26/23 1203] Edema: RUE Edema: None, LUE Edema: None, RLE Edema: Non-pitting, LLE Edema: Non-pitting Bowel Sounds (All Quadrants): Audible, Present Abdomen Inspection: Soft, Rounded Labs and meds reviewed: acetaminophen, 1,000 mg, Oral, q8h aspirin, 81 mg, Oral, Daily atorvastatin, 80 mg, Oral, Nightly ceFAZolin, 2,000 mg, IntraVENous, q8h chlorhexidine, 15 mL, Mouth/Throat, BID folic acid, 1 mg, Oral, Daily heparin, 5,000 Units, SubCUTAneous, BID [START ON 03/27/2023] influenza, 0.5 mL, IntraMUSCular, Once insulin lispro, 0-6 Units, SubCUTAneous, Q4H [Held by provider] insulin lispro, 4 Units, SubCUTAneous, TID WC Lidocaine, 1 patch, Topical, Daily mupirocin, , Nasal, BID pantoprazole, 40 mg, Oral, qAM AC polyethylene glycol (PEG) 3350, 17 g, Oral, Daily senna-docusate sodium, 2 tablet, Oral, Nightly sodium chloride 0.9%, 10 mL, IntraVENous, 2 times per day thiamine, 100 mg, Oral, Daily insulin regular, 1-50 Units/hr, Last Rate: 2 Units/hr (03/26/23 1000) lactated ringers, 250 mL, Last Rate: Stopped (03/26/23 0308) nitroprusside, 0.3-3 mcg/kg/min, Last Rate: 0.75 mcg/kg/min (03/26/23 1142) BMP: Recent Labs 03/25/23 1113 03/26/23 0413 NA 137 138 K 3.9 4.6 CL 107 105 CO2 21* 19* BUN 15 24* CREATININE 1.04 1.46* GLUCOSE 136* 126* CALCIUM 8.5 8.8 MG 3.5* 2.8* PHOS 4.5 -- Recent Labs 03/26/23 0524 03/26/23 0616 03/26/23 0717 03/26/23 0805 03/26/23 0947 03/26/23 1138 POCGLU 146* 143* 151* 132* 132* 145* Lab Results Component Value Date HGBA1C 4.2 03/20/2023 Current Nutrition Therapies: NPO diet Current Oral Intake Average Meal Intake: NPO Average Supplements Intake: NPO Anthropometric Measures: Height: 167.6 cm (5' 6) Current Body Weight: 73.3 kg (161 lb 9.6 oz) (03/26) Admission Body Weight: 68 kg (150 lb) (03/25) Usual Body Weight: (178# on 03/26/23, 169# on 05/13/22, 155# on 01/07/23) Vaughn Body Weight (lbs) (Calculated): 142 lbs Vaughn Body Weight (Kg) (Calculated): 65 kg % Vaughn Body Weight (Calculated): 113.8 % BMI (kg/m2) (Calculated): 26.1 BMI Categories: Overweight (BMI 25.0-29.9) Wt Readings from Last 10 Encounters: 03/26/23 73.3 kg (161 lb 9.6 oz) 03/20/23 68 kg (150 lb) 02/24/23 67.1 kg (148 lb) 06/04/22 74 kg (163 lb 3.2 oz) 05/20/22 76.7 kg (169 lb) 05/13/22 76.8 kg (169 lb 6.4 oz) 04/09/22 80.7 kg (178 lb) 03/26/22 81 kg (178 lb 9.6 oz) Nutrition Diagnosis: Inadequate protein-energy intake related to inadequate protein-energy intake as evidenced by NPO or clear liquid status due to medical condition, weight loss Increased nutrient needs related to increase demand for energy/nutrients as evidenced by wounds (surgical) Nutrition Interventions: Food and/or Nutrient Delivery: Start Oral Diet, Start Oral Nutrition Supplement Nutrition Education/Counseling: Education initiated, Education needed Coordination of Nutrition Care: Continue to monitor while inpatient Goals: Goals: Initiate PO diet, within 2 days Nutrition Monitoring and Evaluation: Behavioral-Environmental Outcomes: Knowledge or Skill Food/Nutrient Intake Outcomes: Diet Advancement/Tolerance, Food and Nutrient Intake, Supplement Intake Physical Signs/Symptoms Outcomes: Biochemical Data, GI Status, Nausea or Vomiting, Fluid Status or Edema, Nutrition Focused Physical Findings, Skin, Weight Discharge Planning: Too soon to determine Ilsa Oconnor RD, LD Contact: *[phone] or via [employer] chat Associated Order(s): IP CONSULT TO ENDOCRINOLOGY Department of Internal Medicine Division of Endocrinology, Diabetes, & Metabolism Endocrinology Note Patient Name: Regan Coughlin : 1960 AGE: 63 y.o. Room[facility]Bed: [facility] Admission Date: 03/25/2023 Visit Date: 03/26/2023 Reason for Endocrine Consult: Post op heart surgery Provider/Team Requesting Consult: CTS PCP: Sophie [employer] Professor: No ASSESSMENT: Stress hyperglycemia CAD - S/P CABG SHONA Atrial fibrillation HTN HLD PLAN: Give Lantus 18 units once and dc insulin drip 1.5 hours after Lantus has been given Since he remains NPO , Start Humalog low dose scale q 4 If he is being started on diet will change above mentioned scale to TID with meals along with Humalog 4 units with meals Check TSH ICU goal <180 GMF goal <150 POCT BG ACHS Hypoglycemia per protocol Carb controlled diet when being resumed ANTICIPATED ENDOCRINE HOME GOING RECOMMENDATIONS: Optimized for Discharge from Endocrine standpoint: No Home Going Endocrine Rx Recommendations-- None Outpt Follow Up-- PCP SUBJECTIVE/HPI: CHIEF COMPLAINT: CAD for CABG Admission in 12/2022 for shortness of breath , developed A Fib with RVR during this admission. Underwent LHC which showed left main CAD and severe proximal LAD Stenosis. He underwent CABG X 4 on 03/25 Type of DM: na Onset of DM: na Home DM Medication Regimen: none DM control (last A1c/glucose data): 4.2% on current admission Insulin drip requirement has been around 2 units/hour for last 6 hour Patient was seen at bedside Endorses to feeling very tired and sore . Had a few bites of jello , feels nauseous He was able to affirm that he does not have diabetes No family history of diabetes No thyroidal issues at baseline Discussed with nursing , patient remains NPO in view of nausea Glucose Date/Time Value Ref Range Status 03/26/2023 08:05 AM 132 (H) 70 - 100 mg/dL Final 03/26/2023 07:17 AM 151 (H) 70 - 100 mg/dL Final 03/26/2023 06:16 AM 143 (H) 70 - 100 mg/dL Final 03/26/2023 05:24 AM 146 (H) 70 - 100 mg/dL Final 03/26/2023 04:20 AM 106 (H) 70 - 100 mg/dL Final 03/26/2023 03:15 AM 149 (H) 70 - 100 mg/dL Final Review of Systems ROS negative except for those mentioned in HPI. OBJECTIVE: Vitals: 03/26/23 0749 03/26/23 0800 03/26/23 0900 03/26/23 1000 BP: BP Location: Patient Position: Pulse: 57 55 56 Resp: (!) 27 21 23 Temp: TempSrc: SpO2: 95% 94% 98% Weight: Height: 5' 6 (1.676 m) Physical Exam Vitals and nursing note reviewed. Constitutional: Comments: Appears tired HENT: Head: Normocephalic and atraumatic. Cardiovascular: Rate and Rhythm: Normal rate and regular rhythm. Comments: Incision intact Pulmonary: Effort: Pulmonary effort is normal. Comments: On nasal cannula oxygen Chest tubes noted Musculoskeletal: General: No swelling. Normal range of motion. Skin: General: Skin is dry. Neurological: General: No focal deficit present. Mental Status: He is oriented to person, place, and time and easily aroused. Psychiatric: Attention and Perception: Attention normal. Behavior: Behavior is slowed. 24 hour intake/output: Intake/Output Summary (Last 24 hours) at 03/26/2023 1039 Last data filed at 03/26/2023 1000 Gross per 24 hour Intake 4726.01 ml Output 2350 ml Net 2376.01 ml Diet: NPO diet Medications (as per EMR): HomeMeds: Current Outpatient Medications Medication Instructions aspirin 81 mg, Oral, Daily atorvastatin (LIPITOR) 80 mg, Oral, Nightly bacitracin 500 UNIT/GM ointment Topical, See admin instructions, Place on q-tip and swab inside nostrils the night before surgery and AM of surgery. chlorhexidine (Peridex) 0.12 % solution 15 mL, Mouth/Throat, See admin instructions, Swish and spit the night before surgery and AM of surgery. Eliquis 5 mg, Oral, 2 times daily furosemide (LASIX) 40 mg, Oral, Daily MAGNESIUM PO 1 tablet, Oral, Daily metoprolol tartrate (LOPRESSOR) 25 mg, Oral, 2 times daily POTASSIUM CHLORIDE PO 1 tablet, Oral, Daily, 99 MG Scheduled Meds:acetaminophen, 1,000 mg, Oral, q8h aspirin, 81 mg, Oral, Daily atorvastatin, 80 mg, Oral, Nightly ceFAZolin, 2,000 mg, IntraVENous, q8h chlorhexidine, 15 mL, Mouth/Throat, BID folic acid, 1 mg, Oral, Daily heparin, 5,000 Units, SubCUTAneous, BID [START ON 03/27/2023] influenza, 0.5 mL, IntraMUSCular, Once Lidocaine, 1 patch, Topical, Daily mupirocin, , Nasal, BID pantoprazole, 40 mg, Oral, qAM AC polyethylene glycol (PEG) 3350, 17 g, Oral, Daily senna-docusate sodium, 2 tablet, Oral, Nightly sodium chloride 0.9%, 10 mL, IntraVENous, 2 times per day thiamine, 100 mg, Oral, Daily Continuous Infusions:insulin regular, 1-50 Units/hr, Last Rate: 2 Units/hr (03/26/23 1000) lactated ringers, 250 mL, Last Rate: Stopped (03/26/23 0308) nitroprusside, 0.3-3 mcg/kg/min, Last Rate: 0.25 mcg/kg/min (03/26/23 0543) PRN Meds:PRN medications: albumin human, calcium gluconate, dextrose, dextrose, glucagon (rDNA), glucose, HYDROmorphone OR HYDROmorphone, ipratropium-albuterol, lactated ringers, LORazepam OR LORazepam OR LORazepam, magnesium hydroxide, magnesium sulfate OR magnesium sulfate, ondansetron ODT OR ondansetron, oxyCODONE OR oxyCODONE, potassium chloride OR potassium chloride OR potassium chloride, potassium chloride CR, sodium chloride, sodium chloride 0.9% Diagnostic Workup: I reviewed pertinent Laboratory results, Radiographic results, and Other Clinical Notes at the time of today's encounter. Labs: No components found for: LABA1C No components found for: EAG Lab Results Component Value Date NA 138 03/26/2023 K 4.6 03/26/2023 CL 105 03/26/2023 CO2 19 (L) 03/26/2023 BUN 24 (H) 03/26/2023 CREATININE 1.46 (H) 03/26/2023 GLUCOSE 126 (H) 03/26/2023 CALCIUM 8.8 03/26/2023 No results found for: CHLPL, CHOL No results found for: TRIG No results found for: HDL No results found for: LDLCALC No results found for: VLDL No results found for: CHOLHDLRATIO No results found for: [id number] No results found for: TSH, C5MNLSD, E8OTADQ, THYROIDAB Radiology reportsas per the Radiologist Radiology: ECG 12 lead Result Date: 03/26/2023 Sinus bradycardia LAD, consider left anterior fascicular block Left ventricular hypertrophy Nonspecific T abnormalities, lateral leads Electronically Signed On 03-26-2023 9:27:01 EST by Claudia Powers ECG 12 lead Result Date: 03/26/2023 Sinus or ectopic atrial bradycardia Left axis deviation PROBABLE INFERIOR INFARCT, AGE INDETERMINATE Electronically Signed On 03-26-2023 7:45:54 EST by Claudia Powers XR chest 1 view Result Date: 03/26/2023 Patient Name: REGAN COUGHLIN : 1960 [facility]#: [id number] Exam Date/Time: 03/26/2023 05:32 Procedure: XR CHEST 1 VIEW Ordering Provider: WA[facility] JENNIFER Reason For Exam: Shortness of breath CLINICAL INFORMATION: Shortness of breath. CHEST X-RAY, PORTABLE, 0532 hours: An AP portable view is compared to the prior examination of the previous day. The endotracheal and endogastric tubes have been removed. The tip of the [place]-Jean[place]Claude catheter has been advanced into the proximal right pulmonary artery. There is no change in the position of the mediastinal or left lower hemithorax chest tubes. There is new atelectasis at right lung base. Stable mild pulmonary vascular prominence/congestion. No pneumothorax. Report Dictated on Electronically Signed By: Max Sarkar MD Electronically Signed Date/Time: 03/26/2023 7:31 AM EST XR chest 1 view Result Date: 03/25/2023 [facility] 1960 [id number] Exam Date/Time: 03/25/2023 12:06 Procedure: XR CHEST 1 VIEW Ordering Provider: [facility] JENNIFER Reason For Exam: Post op open heart surgery CLINICAL INFORMATION: Respiratory distress. Intubation. Chest tubes. New CABG. Portable view of the chest at 1205 hours is provided and compared to a previous study dated March 19, 2023. FINDINGS: An endotracheal tube is now seen with its tip approximately 3 cm above the braxton. An enteric tube extends into the stomach. A [place]-Jean[place]Claude catheter is in place via the right internal jugular vein. The distal tip is in the pulmonary outflow tract. The patient is now status post CABG with the usual sternal wires and surgical clips. The cardiac silhouette and mediastinum are otherwise unremarkable. Mediastinal left-sided chest tubes are in place. There is no pneumothorax. 1. New endotracheal tube in satisfactory position. 2. CABG. 3. Chest tubes without pneumothorax. Report Dictated on Electronically Signed By: Hitesh Hawkins MD Electronically Signed Date/Time: 03/25/2023 12:58 PM EST History/Other: Past Medical History: Past Medical History: Diagnosis Date AAA (abdominal aortic aneurysm) (HCC) Afib (CMS/HCC) (HCC) Coronary artery disease 2019 2x stents, Dr. Eulalio Gutierrez at [facility] TIA (transient ischemic attack) Past Surgical History: Past Surgical History: Procedure Laterality Date CORONARY STENT PLACEMENT 02/2020 x2 IR ANGIOGRAM ENDOVASCULAR AORTIC REPAIR 05/20/2022 OPEN FEMORAL ARTERY EXPOSURE FOR DELIVERY OF ENDOVASCULAR PROSTHESIS OTHER SURGICAL HISTORY Bilateral 05/20/2022 Exploration groin, evacuation of hematoma WISDOM TOOTH EXTRACTION Allergy(ies): No Known Allergies Family History: Family History Problem Relation Name Age of Onset No Known Problems Mother No Known Problems Father Social History: Social History Tobacco Use Smoking status: Every Day Packs/day: 0.25 Years: 30.00 Additional pack years: 0.00 Total pack years: 7.50 Types: Cigarettes Smokeless tobacco: Never Tobacco comments: 4 ciggs per day Vaping Use Vaping Use: Never used Substance Use Topics Alcohol use: Yes Alcohol/week: 4.0 standard drinks of alcohol Types: 4 Shots of liquor per week Drug use: Never Portions of the information within this encounter were entered using an electronic dictation system. Best attempts were made to edit/proofread the information prior to note completion. Despite the review of information, some errors may remain. If there are questions related to the information contained within the note please contact the signing physician directly. I spent 55 minutes with the pt which involved coordination of care, medical evaluation, review of records, and/or counseling of the pt regarding his/her condition/disease state/prognosis on the date of this note. Associated Order(s): IP CONSULT TO CARDIAC REHAB Received referral and reviewed chart. Phase II Cardiac Rehab Referral discussed with Regan Coughlin. Patient prefers cardiac rehab at [facility]. Given information on cardiac rehab at preferred location. Images from the original note were not included. [facility]: Critical Care Consultation Note Date: 03/25/23 PATIENT NAME: Regan Coughlin : 1960 (63 y.o.) Reason for Consult: Critical Care & Vent Management HPI: 63 yo male with PMH of CAD & STEMI s/p PCI (RCA in 2019), Afib (on Eliquis), AAA s/p fenestrated EVAR with RTOR for bilateral groin hematomas, hematuria, HTN, HPL, ETOH, current smoker. He presented to [facility] ED on 01/07/23 with worsening SOB x3 weeks. Echo shoed LVEF 50% with wall motion abnormalities. He did develop Afib RVR during hospitalization and reverted back to SR. Had a heart cath on 02/16/23 which showed multivessel CAD involving LM, prox LAD, and RCA. Surgery: 03/25/23: CABG x4, MAZE, LAAL with atriclip, and LLE EVH with Dr. Villarreal Interval History: 03/25/23: POD #0: Patient arrived to the unit, intubated and sedated. Surgical hand off completed below. Review of Systems Unable to perform ROS: Intubated Allergies: Patient has no known allergies. Past Medical History: has a past medical history of AAA (abdominal aortic aneurysm) ([facility]), Afib (CMS/HCC) (), Coronary artery disease (2019), and TIA (transient ischemic attack). Past Surgical History: has a past surgical history that includes Coronary stent placement (02/2020); [place] tooth extraction; IR angiogram endovascular aortic repair (05/20/2022); and Other surgical history (Bilateral, 05/20/2022). Social History: reports that he has been smoking cigarettes. He has a 7.50 pack-year smoking history. He has never used smokeless tobacco. He reports current alcohol use of about 4.0 standard drinks of alcohol per week. He reports that he does not use drugs. Family History: family history includes No Known Problems in his father and mother. Medications: Prior to Admission medications Medication Sig Start Date End Date Taking? Authorizing Provider aspirin 81 MG EC tablet Take 81 mg by mouth daily. Yes Historical Provider, bacitracin 500 UNIT/GM ointment Apply topically See administration instructions for [address] q-tip and swab inside nostrils the night before surgery and AM of surgery. 02/25/23 Yes MARISABEL Zuñiga CNP chlorhexidine (Peridex) 0.12 % solution Use 15 mL in the mouth or throat See administration instructions for 2 doses. Swish and spit the night before surgery and AM of surgery. 02/25/23 Yes MARISABEL Zuñiga CNP atorvastatin (Lipitor) 80 MG tablet Take 80 mg by mouth Nightly. 03/10/22 Historical Provider, MD Eliquis 5 MG tablet Take 5 mg by mouth 2 times daily. 01/23/23 Historical Provider, furosemide (Lasix) 40 MG tablet Take 40 mg by mouth daily. 01/21/23 Historical Provider, MAGNESIUM PO Take 1 tablet by mouth daily. Historical Provider, metoprolol tartrate (Lopressor) 25 MG tablet Take 25 mg by mouth 2 times daily. 01/23/23 Historical Provider, POTASSIUM CHLORIDE PO Take 1 tablet by mouth daily. 99 MG 02/12/23 Historical Provider, clopidogrel (Plavix) 75 MG tablet Take 75 mg by mouth daily. 03/10/22 03/20/23 Historical Provider, Surgery Hand Off: Arrival Time in HLU: 11:35 Complications/Pertinent Events: none Last Paralytic: 10:20 Medications given in route:none Gtts OR report Epinephrine: 0.02 mcg/kg/min Propofol: 25 mcg/kg/min Insulin: 1 unit/hr Amicar: 29 Current gtts upon arrival Epinephrine: 0.02 mcg/kg/min Propofol: 35 mcg/kg/min Insulin: 1 unit/hr Amicar: 29 Devices: Epicardial wires: yes [x] no [] IABP: yes [] no [] LVAD: yes [] no [] Speed: Equipment: Back up controller yes [] no [] Blood Transfusions Intra Op: yes [] no [x] CellSaver: 350 Vital Signs including Cardiac Numbers (if indicated) at Conclusion of Hand-off OR HLU CO 4.2 4.9 CI 2.4 2.77 CVP 12 7 SVR 1113 1338 PAP 43/20 42/21 Additional Interventions/Misc during Handoff none Objective: BP 129/60 Pulse 80 Temp 36.3 C (97.3 F) (Bladder) Resp 14 Ht 5' 6 (1.676 m) Wt 150 lb (68 kg) SpO2 100% BMI 24.21 kg/m Intake/Output Summary (Last 24 hours) at 03/25/2023 1153 Last data filed at 03/25/2023 1135 Gross per 24 hour Intake 2351.01 ml Output 875 ml Net 1476.01 ml Physical Exam Constitutional: Interventions: He is sedated and intubated. HENT: Mouth/Throat: Comments: ETT in place Neck: Vascular: No JVD. Trachea: Trachea normal. Cardiovascular: Rate and Rhythm: Normal rate and regular rhythm. Pulses: Radial pulses are 2+ on the right side and 2+ on the left side. Heart sounds: Normal heart sounds, S1 normal and S2 normal. Pulmonary: Effort: He is intubated. Breath sounds: Decreased breath sounds present. Abdominal: General: Bowel sounds are absent. Genitourinary: Comments: Ramirez catheter to straight drain Musculoskeletal: Right lower leg: No edema. Left lower leg: No edema. Skin: Findings: Bruising and ecchymosis present. Comments: Surgical dressing dry and intact Diagnostics: Reviewed in EMR Labs: Reviewed in EMR BMP: Recent Labs 03/25/23 1113 NA 137 K 3.9 CL 107 CO2 21* BUN 15 CREATININE 1.04 CALCIUM 8.5 MG 3.5* PHOS 4.5 CBC: Recent Labs 03/25/23 1112 03/25/23 1113 WBC -- 15.5* HGB 7.9 7.4* HCT -- 22.1* PLT -- 173 MCV -- 93.9 RDW -- 14.2 INR: Recent Labs 03/25/23 1113 INR 1.3* Assessment: CAD s/p CABG Afib (on Eliquis) AAA s/p fenestrated EVAR HTN HPL ETOH Current smoker Hx. Hematuria Hx. Stent to RCA in 2019 Post operative Pulm Management: Normal Post-operative Course Post-operative Atrial Fibrillation: []Yes [x] No Acute blood loss anemia Plan: - Sugamadex - Hemodynamic goals: CI >2.0, SBP 90-130 mmHg, MAP 60-75 - PRN Hypertension 1st option Nipride gtt 2nd option or if Nipride unavailable Nitro -PRN Hypotension CI >2.0 euvolemic with low SVR- Levophed gtt CI <2.0 euvolemic - Epinephrine gtt - Temp pacing wires/mode: VVI @ 45 bpm backup - Chest tubes: no air leak or fluctuation noted, suction - Cefazolin - surgical prophy for 5 doses total - Wean to Extubation: Arrival Time in unit: 11:35 am - Vent: ACVC+, TV 6ml/kg/min, rate 12, fio2 100% PEEP 8 VAP protocol: HOB >30 degrees; peridex BID - HgbA1c: 4.2 - Blood glucose 141 - Insulin gtt; per endo/protocol - GI prophy: Protonix IV daily Patient treatment plan and plan of care discuss with Dr. Mikhail Barbosa Associated attestation - Mikhail Casillas MD - 03/25/2023 2:10 PM EST I have personally performed a face to face diagnostic evaluation on this patient today on 03/25/23. Labs, imaging studies, and electronic medical record notes on [employer] have been reviewed by me. This note documented and discussed by the []licensed mortgage loan officer []Fellow [x] GEOVANNY reflects my history, exam and medical decision making. I have reviewed and agree with the care plan. Changes were made in the orders as necessary. ROS documentation was reviewed and negative unless otherwise stated in the HPI. My history, exam, assessment and plan are as follows: Critical care time spent excluding separately billable procedures is 33 minutes. Severe CAD s/p CABG, AtriClip Hx Afib, currently sinus Expected acute blood loss anemia Post op vent management, resp acidosis Tobacco and alcohol use Hx AAA, aortoiliac endograft and b/l renal artery stents Wean sedation for SBT as tolerated later this afternoon Repeat ABG Transfuse prn PHYSICAL EXAM: General Appearance: []WDWN []Obese []Cachectic []Thin []ill Skin: Temperature []Warm []Cool Rash []Yes []No Tattoo(s) []Yes []No HEENT: Pupils round and react [x]Yes []No Sclera []Icteric []Non-Icteric Conjunctiva []Injected [x]Non-Injected Pinnae []Normal []Other Dentitian [][place] Teeth []Dentures []edentulous Oral Mucosa [x][place] []Moist []Dry Oral ETT [x]Present []Absent Neck: Trachea midline [x]Yes []No Thyromegaly []Yes []No Crepitus []Present []Absent Jvd []Present []Absent Lungs: [x]Clear []Crackles []Wheezes [][place]honchi Respiratory effort []Labored [x]Non-Labored Heart: Rate [x]Regular []Irregular []Tachycardia []Bradycardia Rhythm [x]Regular []Irregular Murmur []Present []Absent Peripheral Edema []Present [x]Absent Abdomen: [x]Soft Bowel Sounds []Present []Absent []Tender [x]Non-Tender []Distended []Non-distended Hernia []Present []Absent Organomegaly []Present []Absent []unable to assess 2/2 body habitus []Scar Extremities: Cyanosis []Present [x]Absent CLEMONS ([]RUE []RLE []LUE []LLE) Neurologic: EKUK []Yes []No Corneal reflexes []Present []Absent Plantar reflexes []Up []Down []Absent Withdraws to tactile []Yes []No Follows Commands []Yes [x]No []Unresponsive to verbal []Cranial nerves grossly intact []Sensation grossly intact Psych: Alert []yes [x]no Oriented []x0 []x1 []x2 []x3 Affect []Normal []Flat []Agitated []Anxious [x]Calm [x]Sedated []NAD documented in this encounter [facility] 03-25-2023 Note Addendum created 1155 by MARISABEL Yu CRNA Intraprocedure Meds edited (Anesthesia) [facility] 03-25-2023 Note Patient: Regan Coughlin Procedure Summary Date: 03/25/23 Room / Location: [facility] Operating Room Anesthesia Start: 55 Anesthesia Stop: 1149 Procedures: CORONARY ARTERY BYPASS GRAFT WITH ATRIAL ABLATION AND CLIP, TRANSESOPHAGEAL ECHOCARDIOGRAM (Chest) Echocardiography transesophageal real-time Diagnosis: Atherosclerotic heart disease of [place] coronary artery without angina pectoris Unspecified atrial fibrillation (HCC) (Atherosclerotic heart disease of [place] coronary artery without angina pectoris [I25.10]) (Unspecified atrial fibrillation (HCC) [I48.91]) Surgeons: Alfosno Villarreal MD Responsible Provider: Yovani Booth DO Anesthesia Type: general ASA Status: 4 Anesthesia Type: general Vitals Value Taken Time BP 129/60 03/25/23 1145 Temp 36.3 ?C (97.3 ?F) 03/25/23 1145 Pulse 61 03/25/23 1150 Resp 18 03/25/23 1150 SpO2 94 % 03/25/23 1150 Vitals shown include unfiled device data. Anesthesia Post Evaluation Patient location during evaluation: ICU Patient participation: complete - patient cannot participate Level of consciousness: intubated and sedated Pain management: adequate Airway patency: patent Dental Injury: no Cardiovascular status: acceptable and hemodynamically stable Respiratory status: acceptable, ETT, intubated and ventilator Hydration status: acceptable Nausea/Vomiting: controlled No notable events documented. Patient can be discharged once all PACU criteria has been met. [facility] 03-25-2023 Note Patient: Regan Coughlin Procedure Summary Date: 03/25/23 Room / Location: [facility] Operating Room Anesthesia Start: 0655 Anesthesia Stop: 1149 Procedures: CORONARY ARTERY BYPASS GRAFT WITH ATRIAL ABLATION AND CLIP, TRANSESOPHAGEAL ECHOCARDIOGRAM (Chest) Echocardiography transesophageal real-time Diagnosis: Atherosclerotic heart disease of [place] coronary artery without angina pectoris Unspecified atrial fibrillation (HCC) (Atherosclerotic heart disease of [place] coronary artery without angina pectoris [I25.10]) (Unspecified atrial fibrillation (HCC) [I48.91]) Surgeons: Alfonso Villarreal MD Responsible Provider: Yovani Booth DO Anesthesia Type: general ASA Status: 4 Anesthesia Type: general Vitals Value Taken Time BP 129/60 03/25/23 1145 Temp 36.3 ?C (97.3 ?F) 03/25/23 1145 Pulse 81 03/25/23 1149 Resp 18 03/25/23 1149 SpO2 100 % 03/25/23 1149 Vitals shown include unfiled device data. Anesthesia Post Evaluation Patient location during evaluation: ICU Patient participation: complete - patient cannot participate Post-procedure mental status: sedated/intubated. Pain score: 0 Pain management: adequate Multimodal analgesia pain management approach Airway patency: patent Two or more strategies used to mitigate risk of obstructive sleep apnea Cardiovascular status: hemodynamically stable Respiratory status: acceptable, intubated, ventilator and ETT Hydration status: acceptable No notable events documented. MIPS #430 PONV Patient received an inhalational anesthetic (4554F) Patient does not exhibit three or more risk factors for PONV (X0430)) MIPS # 424 Perioperative Temperature Management Anesthesia time was 60 minutes or longer (4255F) Anesthesai administered was General (inhalational or TIVA) or Neuraxial block (X0424) At least one body temperature greater than 95.8F/35.5C achieved within the 30 mins immediately prior to or the 15 minutes immediately following anesthesia end time (G9771) MIPS #477 Multimodal Pain Management Not emergent case Patient was administered multimodal pain management (two or more drugs and/or interventions excluding systemic opioids) in the periopeartive period occurring at some time between 6 hours prior to anesthesia start time until discharged from PACU (G2148) MIPS #404 Anesthesiology Smoking Abstinence The patient is a current smoker (G9642) (e.g. cigarette, cigar, pipe, e-cigarette/vaping/marijuana) The patient underwent an elective surgery or procedure requiring anesthesia (G9643) The patient received preop smoking cessation instructions prior to the day of surgery or procedure by , [employer] insurance counselor proxy staff (G9497) The patient did not smoke the day of the procedure (G9644) I completed my handoff to the receiving clinician during which we: 1. Identified the patient 2. Identified the responsible provider 3. Reviewed the pertinent medical history 4. Discussed the surgical course 5. Reviewed intra-op anesthesia management and issues during anesthesia 6. Set expectations for post-procedure period 7. Allowed opportunity for questions and acknowledgement of understanding. [facility] 03-25-2023 Note Formatting of this n ote is different from the original. Addendum created 03/25/23 1155 by MARISABEL Yu CRNA Intraprocedure Meds edited (Anesthesia) [facility] 03-25-2023 Miscellaneous Notes Addendum created 03/25/23 1155 by MARISABEL Yu CRNA Intraprocedure Meds edited (Anesthesia) Patient: Regan Coughlin Procedure Summary Date: 03/25/23 Room / Location: [address] Operating Room Anesthesia Start: 654 Anesthesia Stop: 1149 Procedures: CORONARY ARTERY BYPASS GRAFT WITH ATRIAL ABLATION AND CLIP, TRANSESOPHAGEAL ECHOCARDIOGRAM (Chest) Echocardiography transesophageal real-time Diagnosis: Atherosclerotic heart disease of [place] coronary artery without angina pectoris Unspecified atrial fibrillation (HCC) (Atherosclerotic heart disease of [place] coronary artery without angina pectoris [I25.10]) (Unspecified atrial fibrillation (HCC) [I48.91]) Surgeons: Alfonso Villarreal MD Responsible Provider: Yovani Booth DO Anesthesia Type: general ASA Status: 4 Anesthesia Type: general Vitals Value Taken Time BP 129/60 03/25/23 1145 Temp 36.3 C (97.3 F) 03/25/23 1145 Pulse 61 03/25/23 1150 Resp 18 03/25/23 1150 SpO2 94 % 03/25/23 1150 Vitals shown include unfiled device data. Anesthesia Post Evaluation Patient location during evaluation: ICU Patient participation: complete - patient cannot participate Level of consciousness: intubated and sedated Pain management: adequate Airway patency: patent Dental Injury: no Cardiovascular status: acceptable and hemodynamically stable Respiratory status: acceptable, ETT, intubated and ventilator Hydration status: acceptable Nausea/Vomiting: controlled No notable events documented. Patient can be discharged once all PACU criteria has been met. documented in this encounter [facility] 03-25-2023 Note Formatting of this n ote is different from the original. Patient: Regan Coughlin Procedure Summary Date: 03/25/23 Room / Location: [address] Operating Room Anesthesia Start: 654 Anesthesia Stop: 1149 Procedures: CORONARY ARTERY BYPASS GRAFT WITH ATRIAL ABLATION AND CLIP, TRANSESOPHAGEAL ECHOCARDIOGRAM (Chest) Echocardiography transesophageal real-time Diagnosis: Atherosclerotic heart disease of [place] coronary artery without angina pectoris Unspecified atrial fibrillation (HCC) (Atherosclerotic heart disease of [place] coronary artery without angina pectoris [I25.10]) (Unspecified atrial fibrillation (HCC) [I48.91]) Surgeons: Alfonso Villarreal MD Responsible Provider: Yovani Booth DO Anesthesia Type: general ASA Status: 4 Anesthesia Type: general Vitals Value Taken Time BP 129/60 03/25/23 1145 Temp 36.3 C (97.3 F) 03/25/23 1145 Pulse 61 03/25/23 1150 Resp 18 03/25/23 1150 SpO2 94 % 03/25/23 1150 Vitals shown include unfiled device data. Anesthesia Post Evaluation Patient location during evaluation: ICU Patient participation: complete - patient cannot participate Level of consciousness: intubated and sedated Pain management: adequate Airway patency: patent Dental Injury: no Cardiovascular status: acceptable and hemodynamically stable Respiratory status: acceptable, ETT, intubated and ventilator Hydration status: acceptable Nausea/Vomiting: controlled No notable events documented. Patient can be discharged once all PACU criteria has been met. [facility] 03-25-2023 Anesthesiology Postoperative evaluation and management note Patient: Regan Coughlin Procedure Summary Date: 03/25/23 Room / Location: [address] Operating Room Anesthesia Start: 654 Anesthesia Stop: 1149 Procedures: CORONARY ARTERY BYPASS GRAFT WITH ATRIAL ABLATION AND CLIP, TRANSESOPHAGEAL ECHOCARDIOGRAM (Chest) Echocardiography transesophageal real-time Diagnosis: Atherosclerotic heart disease of [place] coronary artery without angina pectoris Unspecified atrial fibrillation (HCC) (Atherosclerotic heart disease of [place] coronary artery without angina pectoris [I25.10]) (Unspecified atrial fibrillation (HCC) [I48.91]) Surgeons: Alfonso Villarreal MD Responsible Provider: Yovani Booth DO Anesthesia Type: general ASA Status: 4 Anesthesia Type: general Vitals Value Taken Time BP 129/60 03/25/23 1145 Temp 36.3 C (97.3 F) 03/25/23 1145 Pulse 81 03/25/23 1149 Resp 18 03/25/23 1149 SpO2 100 % 03/25/23 1149 Vitals shown include unfiled device data. Anesthesia Post Evaluation Patient location during evaluation: ICU Patient participation: complete - patient cannot participate Post-procedure mental status: sedated/intubated. Pain score: 0 Pain management: adequate Multimodal analgesia pain management approach Airway patency: patent Two or more strategies used to mitigate risk of obstructive sleep apnea Cardiovascular status: hemodynamically stable Respiratory status: acceptable, intubated, ventilator and ETT Hydration status: acceptable No notable events documented. MIPS #430 PONV Patient received an inhalational anesthetic (4554F) Patient does not exhibit three or more risk factors for PONV (X0430)) MIPS # 424 Perioperative Temperature Management Anesthesia time was 60 minutes or longer (4255F) Anesthesai administered was General (inhalational or TIVA) or Neuraxial block (X0424) At least one body temperature greater than 95.8F/35.5C achieved within the 30 mins immediately prior to or the 15 minutes immediately following anesthesia end time (G9771) MIPS #477 Multimodal Pain Management Not emergent case Patient was administered multimodal pain management (two or more drugs and/or interventions excluding systemic opioids) in the periopeartive period occurring at some time between 6 hours prior to anesthesia start time until discharged from PACU (G2148) MIPS #404 Anesthesiology Smoking Abstinence The patient is a current smoker (G9642) (e.g. cigarette, cigar, pipe, e-cigarette/vaping/marijuana) The patient underwent an elective surgery or procedure requiring anesthesia (G9643) The patient received preop smoking cessation instructions prior to the day of surgery or procedure by MD, [employer] insurance counselor proxy staff (G9497) The patient did not smoke the day of the procedure (G9644) I completed my handoff to the receiving clinician during which we: 1. Identified the patient 2. Identified the responsible provider 3. Reviewed the pertinent medical history 4. Discussed the surgical course 5. Reviewed intra-op anesthesia management and issues during anesthesia 6. Set expectations for post-procedure period 7. Allowed opportunity for questions and acknowledgement of understanding. [facility] 03-25-2023 Surgical operatio n note Patient: Regan Coughlin Procedure Summary Date: 03/25/23 Room / Location: [facility] Operating Room Anesthesia Start: 654 Anesthesia Stop: 1149 Procedures: CORONARY ARTERY BYPASS GRAFT WITH ATRIAL ABLATION AND CLIP, TRANSESOPHAGEAL ECHOCARDIOGRAM (Chest) Echocardiography transesophageal real-time Diagnosis: Atherosclerotic heart disease of [place] coronary artery without angina pectoris Unspecified atrial fibrillation (HCC) (Atherosclerotic heart disease of [place] coronary artery without angina pectoris [I25.10]) (Unspecified atrial fibrillation (HCC) [I48.91]) Surgeons: Alfonso Villarreal MD Responsible Provider: Yovani Booth DO Anesthesia Type: general ASA Status: 4 Anesthesia Type: general Vitals Value Taken Time BP 129/60 03/25/23 1145 Temp 36.3 C (97.3 F) 03/25/23 1145 Pulse 81 03/25/23 1149 Resp 18 03/25/23 1149 SpO2 100 % 03/25/23 1149 Vitals shown include unfiled device data. Anesthesia Post Evaluation Patient location during evaluation: ICU Patient participation: complete - patient cannot participate Post-procedure mental status: sedated/intubated. Pain score: 0 Pain management: adequate Multimodal analgesia pain management approach Airway patency: patent Two or more strategies used to mitigate risk of obstructive sleep apnea Cardiovascular status: hemodynamically stable Respiratory status: acceptable, intubated, ventilator and ETT Hydration status: acceptable No notable events documented. MIPS #430 PONV Patient received an inhalational anesthetic (4554F) Patient does not exhibit three or more risk factors for PONV (X0430)) MIPS # 424 Perioperative Temperature Management Anesthesia time was 60 minutes or longer (4255F) Anesthesai administered was General (inhalational or TIVA) or Neuraxial block (X0424) At least one body temperature greater than 95.8F/35.5C achieved within the 30 mins immediately prior to or the 15 minutes immediately following anesthesia end time (G9771) MIPS #477 Multimodal Pain Management Not emergent case Patient was administered multimodal pain management (two or more drugs and/or interventions excluding systemic opioids) in the periopeartive period occurring at some time between 6 hours prior to anesthesia start time until discharged from PACU (G2148) MIPS #404 Anesthesiology Smoking Abstinence The patient is a current smoker (G9642) (e.g. cigarette, cigar, pipe, e-cigarette/vaping/marijuana) The patient underwent an elective surgery or procedure requiring anesthesia (G9643) The patient received preop smoking cessation instructions prior to the day of surgery or procedure by , [employer] insurance counselor proxy staff (G9497) The patient did not smoke the day of the procedure (G9644) I completed my handoff to the receiving clinician during which we: 1. Identified the patient 2. Identified the responsible provider 3. Reviewed the pertinent medical history 4. Discussed the surgical course 5. Reviewed intra-op anesthesia management and issues during anesthesia 6. Set expectations for post-procedure period 7. Allowed opportunity for questions and acknowledgement of understanding. Associated Order(s): Arterial Line Arterial Line: Date/Time: 03/25/2023 7:11 AM An arterial line was placed Procedure performed using ultrasound guidance - Image permanently retained with wire or catheter in vein.in the Procedural for the following indication(s): continuous blood pressure monitoring and blood sampling needed. A 20 gauge (size), 1 and 3/4 inch (length), Arrow (type) catheter was placed, into the Right secured by Tegaderm and tape. Staffing Performed: WEARING APPAREL SHAKER Resident/WEARING APPAREL SHAKER: MARISABEL Zafar CRNA Performed by: MARISABEL Zafar CRNA Authorized by: MARISABEL Zafar CRNA Associated Order(s): Central Venous Line Central Venous Line: Date/Time: 03/25/2023 7:28 AM A central venous line was placed for the following indication(s): CVP monitoring. Sterility preparation included the following: provider hand hygiene performed prior to central venous catheter insertion, all 5 sterile barriers used (gloves, gown, cap, mask, large sterile drape) during central venous catheter insertion, antiseptic used during central venous catheter insertion and skin prep agent completely dried prior to procedure. The patient was placed in Trendelenburg position. Right internal jugular vein was prepped. The site was prepped with Chlorhexidine. Size: 8 Italian Catheter type: introducer Number of Lumens: double lumen During the procedure, the following specific steps were taken: target vein identified, needle advanced into vein and blood aspirated and guidewire advanced into vein. Procedure performed using ultrasound guidance - Image permanently retained with wire or catheter in vein. Sterile gel and probe cover used in ultrasound-guided central venous catheter insertion. Intravenous verification was obtained by ultrasound. Post insertion care included: all ports aspirated, all ports flushed easily, guidewire removed intact, Biopatch applied, line sutured in place and dressing applied. During the procedure the patient experienced: patient tolerated procedure well with no complications. right internal jugular vein. The PAC placement was confirmed by SHAILA. The patient experienced the following events during the procedure: no complications. Staffing Performed: anesthesiologist Anesthesiologist: Yovani Booth DO Resident/WEARING APPAREL SHAKER: MARISABEL Yu CRNA Performed by: MARISABEL Yu CRNA Authorized by: MARISABEL Yu CRNA Associated Order(s): Airway Airway Date/Time: 03/25/2023 7:14 AM Urgency: scheduled Airway not difficult General Information and Staff Patient location during procedure: Procedural Resident/WEARING APPAREL SHAKER: MARISABEL Zafar CRNA Performed: SRNA Performed by: MARISABEL Yu CRNA Authorized by: MARISABEL Yu CRNA Indications and Patient Condition Indications for airway management: anesthesia Sedation level: Asleep Preoxygenated: yes Patient position: sniffing Mask difficulty assessment: 1 - vent by mask Final Airway Details Final airway type: endotracheal airway Successful airway: ETT Cuffed: yes Successful intubation technique: direct laryngoscopy Facilitating devices/methods: intubating stylet Endotracheal tube insertion site: oral Blade: Shruthi Blade size: #3 ETT size (mm): 8.0 Cormack-Lehane Classification: grade I - full view of glottis Placement verified by: chest auscultation and capnometry Measured from: lips ETT to lips (cm): 21 Number of attempts at approach: 1 Additional Comments Atraumatic, dentition & oral mucosa unchanged Patient: Regan Coughlin Procedure Information Date/Time: 03/25/23 0700 Procedures: CABG, WITH ATRIAL ABLATION AND CLIP, TRANSESOPHAGEAL ECHOCARDIOGRAM (Chest) Echocardiography transesophageal real-time Location: [facility] Operating Room Surgeons: Alfonso Villarreal MD Past Medical History: Past Medical History: No date: AAA (abdominal aortic aneurysm) ([facility]) No date: Afib (CMS/HCC) (HCC) 2020: Coronary artery disease Comment: 2x stents, Dr. Eulalio Gutierrez at [facility] No date: TIA (transient ischemic attack) Past Surgical History: Past Surgical History: 02/2020: CORONARY STENT PLACEMENT Comment: x2 05/20/2022: IR ANGIOGRAM ENDOVASCULAR AORTIC REPAIR Comment: OPEN FEMORAL ARTERY EXPOSURE FOR DELIVERY OF ENDOVASCULAR PROSTHESIS 05/20/2022: OTHER SURGICAL HISTORY; Bilateral Comment: Exploration groin, evacuation of hematoma No date: WISDOM TOOTH EXTRACTION Social History: TOBACCO: reports that he has been smoking cigarettes. He has a 7.50 pack-year smoking history. He has never used smokeless tobacco. ETOH: reports current alcohol use of about 4.0 standard drinks of alcohol per week. Social History Substance and Sexual Activity Drug Use Never Family History: Family History Problem Relation Name Age of Onset No Known Problems Mother No Known Problems Father Screening: unknown Clinical information reviewed: Allergies Meds Physical Exam Airway Mallampati: II TM distance: >3 FB Neck ROM: full Mouth Open: normalendotracheal tube not in place Cardiovascular Dental (+) Missing, Poor Pulmonary Abdominal Anesthesia Plan patient is NPO appropriate Any family history or previous problems with anesthesia no ASA 4 general Any family history or previous problems with anesthesia no The patient is a current smoker. Patient was previously instructed to abstain from smoking on day of procedure. Patient did not smoke on day of procedure. Anesthetic plan and risks discussed with patient. ERAS Type No ERAS Xanax ordered preop EM Screening STOP-Bang Total Score: 6 - Referral placed Labs: Lab Results Component Value Date WBC 8.5 05/22/2022 HGB 10.7 (L) 05/22/2022 HCT 29.3 (L) 05/22/2022 MCV 96.5 05/22/2022 PLT 153 05/22/2022 Lab Results Component Value Date NA 143 08/14/2022 K 4.5 08/14/2022 CL 105 08/14/2022 CO2 30 08/14/2022 BUN 16 08/14/2022 CREATININE 0.64 (L) 08/14/2022 GLUCOSE 95 08/14/2022 CALCIUM 9.3 08/14/2022 PROT 7.8 05/13/2022 ALKPHOS 97 05/13/2022 AST 27 05/13/2022 ALT 15 05/13/2022 EGFR >90.0 08/14/2022 No echocardiogram results found for the past 14 days 03/20/23 ECG 12-LEAD (Preliminary) This result has not been signed. Information might be incomplete. Impression Sinus rhythm Consider left ventricular hypertrophy Nonspecific T abnormalities, lateral leads Cath EF 45%, wall abnormalities, coronary lesions DSE 6 months Interpretation Summary Left Ventricle: Left ventricle size is normal. Normal wall thickness. Normal left ventricular systolic function. The EF by visual approximation is 55%. Normal wall motion. Left Ventricle: Normal left ventricular systolic function. The EF by visual approximation is 55%. Right Ventricle: Right ventricle size is normal. Hyperdynamic systolic function. Mitral Valve: Mildly thickened leaflets. Mild annular calcification. Stress ECG: Conclusion: The stress test is normal. Stress Test: A pharmacological stress test was performed using dobutamine. Hemodynamics are adequate for diagnosis. Blood pressure demonstrated a normal response and heart rate demonstrated a normal response to stress. The patient reported no chest pain during the stress test. documented in this encounter [facility] 03-25-2023 Note Arterial Line: Date/Time: 03/25/2023 7:11 AM An arterial line was placed Procedure performed using ultrasound guidance - Image permanently retained with wire or catheter in vein.in the Procedural for the following indication(s): continuous blood pressure monitoring and blood sampling needed. A 20 gauge (size), 1 and 3/4 inch (length), Arrow (type) catheter was placed, into the Right secured by Tegaderm and tape. Staffing Performed: WEARING APPAREL SHAKER Resident/WEARING APPAREL SHAKER: MARISABEL Zafar CRNA Performed by: MARISABEL Zafar CRNA Authorized by: MARISABEL Zafar CRNA [facility] 03-25-2023 Note Central Venous Line: Date/Time: 03/25/2023 7:28 AM A central venous line was placed for the following indication(s): CVP monitoring. Sterility preparation included the following: provider hand hygiene performed prior to central venous catheter insertion, all 5 sterile barriers used (gloves, gown, cap, mask, large sterile drape) during central venous catheter insertion, antiseptic used during central venous catheter insertion and skin prep agent completely dried prior to procedure. The patient was placed in Trendelenburg position. Right internal jugular vein was prepped. The site was prepped with Chlorhexidine. Size: 8 Italian Catheter type: introducer Number of Lumens: double lumen During the procedure, the following specific steps were taken: target vein identified, needle advanced into vein and blood aspirated and guidewire advanced into vein. Procedure performed using ultrasound guidance - Image permanently retained with wire or catheter in vein. Sterile gel and probe cover used in ultrasound-guided central venous catheter insertion. Intravenous verification was obtained by ultrasound. Post insertion care included: all ports aspirated, all ports flushed easily, guidewire removed intact, Biopatch applied, line sutured in place and dressing applied. During the procedure the patient experienced: patient tolerated procedure well with no complications. right internal jugular vein. The PAC placement was confirmed by SHAILA. The patient experienced the following events during the procedure: no complications. Staffing Performed: anesthesiologist Anesthesiologist: Yovani Booth DO Resident/WEARING APPAREL SHAKER: MARISABEL Yu CRNA Performed by: MARISABEL Yu CRNA Authorized by: MARISABEL Yu CRNA [facility] 03-25-2023 Note Airway Date/Time: 03/25/2023 7:14 AM Urgency: scheduled Airway not difficult General Information and Staff Patient location during procedure: Procedural Resident/WEARING APPAREL SHAKER: MARISABEL Zafar CRNA Performed: SRNA Performed by: MARISABEL Yu CRNA Authorized by: MARISABEL Yu CRNA Indications and Patient Condition Indications for airway management: anesthesia Sedation level: Asleep Preoxygenated: yes Patient position: sniffing Mask difficulty assessment: 1 - vent by mask Final Airway Details Final airway type: endotracheal airway Successful airway: ETT Cuffed: yes Successful intubation technique: direct laryngoscopy Facilitating devices/methods: intubating stylet Endotracheal tube insertion site: oral Blade: Shruthi Blade size: #3 ETT size (mm): 8.0 Cormack-Lehane Classification: grade I - full view of glottis Placement verified by: chest auscultation and capnometry Measured from: lips ETT to lips (cm): 21 Number of attempts at approach: 1 Additional Comments Atraumatic, dentition & oral mucosa unchanged [facility] 03-25-2023 Procedure anesthe meche Narrative Procedure Name Responsible Anesthesiologist Anesthesia Start Time Anesthesia Stop Time CORONARY ARTERY BYPASS GRAFT WITH ATRIAL ABLATION AND CLIP, TRANSESOPHAGEAL ECHOCARDIOGRAM (Chest) Yovani Booth DO 03/25/23 0655 03/25/23 1149 Events Date Time Event Comment 03/25/2023 0633 AN Preop Started 0640 0645 Perfusion Start 0655 An Start 0658 In Room 0658 An Start Data 0711 An Induction The patient was reevaluated immediately before moderate or deep sedation use and before anesthesia induction. 0714 An Intubation 0730 Anesthesia Ready 0753 Proc Start 0811 AN SHAILA Placed By winifred booth 0833 ACT Adequate for CPB 0844 Art Line Pulse/Test 0850 An CV Bypass init 0855 An Clamp On 0855 An Clamp On 1004 An Clamp Off 1004 An Clamp Off 1035 An CV Bypass Ended 1036 An CV Bypass Ended 1046 Hany NILS administere d PRN (1mg/2mL) = 4mg total throughout pumprun. 1115 Perfusion Stop 1120 Proc Fin 1132 an stop data 1135 Out of Room 1149 An Stop Meds Name Total midazolam (Versed) injection 2 mg/2 mL 2 mg fentaNYL (Sublimaze) injection 20 mL 1,2 50 mcg lidocaine PF (Xylocaine-MPF) local injec tion 2 % 80 mg etomidate (Amidate) injection 20 mg rocuronium (ZeMuron) 50 mg/5 mL injectio n 200 mg esmolol (Brevibloc) 40 mg phenylephrine syringe 1 mg/ 10 mL syring e (IV Push for HYPOTENSION) 150 mcg EPINEPHrine 5mg in 0.9% sodium chloride 250 mL infusion (weight-based) 0.11 mg aminocaproic acid (Amicar) injection 10 g protamine injection 320 mg insulin regular infusion 100 units in 10 0 mL NS (premix) 1.4 Units nitroglycerin 1000 mcg/10 mL syringe (Ch arge Only) 50 mcg perfusion prime builder 400 mL ceFAZolin in dextrose 4% (Ancef) IVPB 2, 000 mg 3,000 mg heparin injection 1,000 units/mL 27,000 Units heparin (porcine) 1,000 units/mL injecti on 20,000 Units calcium chloride 10% IV syringe 1,000 mg glycopyrrolate (Robinul) injection 0.2 m g albumin human 25 % 25 g propofol (Diprivan) infusion 10 mg/mL 66 .64 mg sodium chloride 0.9 % infusion 400 mL sodium chloride 0.9 % infusion 800 mL * Agents Name O2 Sevoflurane Isoflurane * Blood No blood administrations on file. Lines, Drains, and Airways Type Details Placement Removal Wound/Incision 05/20/22; 1031; Incision; Pelvis; Anterior, Right 05/20/22 1031 by Laura Mejia RN Wound/Incision 05/20/22; 1031; Incision; Pelvis; Anterior, Left 05/20/22 1031 by Laura Mejia RN Wound/Incision 03/25/23; Incision; Sternum 03/25/23 0000 by Bibi Cr RN Wound/Incision 03/25/23; Incision; Calf; Anterior, Left 03/25/23 0000 by Bibi Cr RN Chest Tube Placement Date: 03/25/23; Inserted by: VILLARREAL; Size: 24 Fr (2 24F RICARDO DRAINS) 03/25/23 0000 by Bibi Cr RN Peripheral IV Placement Date: 03/25/23; Placement Time: 06; Catheter Size: 20 G; Orientation: Anterior, Left; Location: Hand; Site Prep: Alcohol; Inserted by: Jamia ROCK; Insertion Attempts: 1 03/25/23 06 by Laxmi Calvillo RN Arterial Line Placement Date: 03/25/23; Placement Time: 07 (created via procedure documentation); Size: 20 G; Orientation: Right; Securement: Taped, Transparent dressing 03/25/23 07 by MARISABEL Zafar CRNA Urethral Catheter Placement Date: 03/25/23; Placement Time: 717; Inserted by: ETCH OPERATOR SEMICONDUCTOR WAFERS; Size: 16 Fr.; Balloon Size: 10 mL; Urine Returned: Yes 03/25/23717 by Bibi Cr RN Introducer Placement Date: 03/25/23; Placement Time: 727 (created via procedure documentation); Hand Hygiene: Yes; Location: Internal jugular; Orientation: Right; Placement Verified by: SHAILA 03/25/23727 by MARISABEL Yu CRNA Pulmonary Catheter Triple Placement Date: 03/25/23; Placement Time: 1144; Orientation: Right; Location: Internal jugular 03/25/23 1144 by Melody Kay RN Pacer Wires 03/25/23; 1144; Ventricular 03/25/23 1144 by Melody Kay RN ETT Placement Date: 03/25/23; Placement Time: 0714 (created via procedure documentation); Type: ETT - single; Single Lumen Tube Size: 8 mm; Cuffed: Yes; Location: Oral; Placement Verification: Auscultation, Capnometry; Airway Comments: Atraumatic, dentition & oral mucosa unchanged; Removal Date: 03/25/23; Removal Time: 1430 03/25/23 0714 by MARISABEL Yu CRNA 03/25/23 1430 by Charline Esquivel RN CVC Double Lumen Placement Date: 03/25/23; Placement Time: 07 (created via procedure documentation); Hand Hygiene: Yes; Site Prep Agent Dried: Yes; Sterile Barrier Used: Yes; Orientation: Right; Location: Internal jugular; Placement Verification: Ultrasound; Removal Date: 03/25/23; Removal Time: 1144 03/25/23 0728 by MARISABEL Yu WEARING APPAREL SHAKER 03/25/23 1144 by Melody Kay RN NG/OG Tube Placement Date: 03/25/23; Placement Time: 1154; Type: Orogastric; Location: Center mouth; Removal Date: 03/25/23; Removal Time: 1430 03/25/23 1154 by Melody Kay RN 03/25/23 1430 by Charline Esquivel RN [id number]* Anesthesia Procedure Notes - MARISABEL Zafar CRNA - 03/25/2023 8:11 AM ESTAssociated Order(s): Arterial Line Arterial Line: Date/Time: 03/25/2023 7:11 AM An arterial line was placed Procedure performed using ultrasound guidance - Image permanently retained with wire or catheter invein.in the Procedural for the following indication(s): continuous blood pressure monitoring and blood sampling needed. A 20 gauge (size), 1 and 3/4 inch (length), Arrow (type) catheter was placed, into the Right secured by Tegaderm and tape. Staffing Performed: WEARING APPAREL SHAKER Resident/WEARING APPAREL SHAKER: MARISABEL Zafar CRNA Performed by: MARISABEL Zafar CRNA Authorized by: MARISABEL Zafar CRNA [facility]11-29-2023 Anesthesiology procedure note* Anesthesia Procedure Notes - MARISABEL Zafar CRNA - 03/25/2023 8:08 AM [facility]Assexcel[facility] Order[facility]s): Central Venous Line Central Venous Line: Date/Time: 03/25/2023 7:28 AM A central venous line was placed for the following indication(s): CVP monitoring. Sterility preparation included the following: provider hand hygiene performed prior to central venous catheter insertion, all 5 sterile barriers used (gloves, gown, cap, mask, large sterile drape) during central venous catheter insertion, antiseptic used during central venous catheter insertion andskin prep agent completely dried prior to procedure. The patient was placed in Trendelenburg position. Right internal jugular vein was prepped. The site was prepped with Chlorhexidine. Size: 8 Italian Catheter type: introducer Number of Lumens: double lumen During the procedure, the following specific steps were taken: target vein identified, needle advanced into vein and blood aspirated and guidewire advanced into vein. Procedure performed using ultrasound guidance - Image permanently retained with wire or catheter invein. Sterile gel and probe cover used in ultrasound-guided central venous catheter insertion. Intravenous verification was obtained by ultrasound. Post insertion care included: all ports aspirated, all ports flushed easily, guidewire removed intact, Biopatch applied, line sutured in place and dressing applied. During the procedure the patient experienced: patient tolerated procedure well with no complications. right internal jugular vein. The PAC placement was confirmed by SHAILA. The patient experienced the following events during the procedure: no complications. Staffing Performed: anesthesiologist Anesthesiologist: Yovani Booth DO Resident/WEARING APPAREL SHAKER: MARISABEL Yu CRNA Performed by: MARISABEL Yu CRNA Authorized by: Peyton A O'Bernardo, DIRECTOR MARKET INTELLIGENCE - WEARING APPAREL SHAKER [employer]11-29-2023 Anesthesiology procedure note* Anesthesia Procedure Notes - MARISABEL Yu CRNA - 03/25/2023 8:05 AM ESTAssociated Order(s): Airway Airway Date/Time: 03/25/2023 7:14 AM Urgency: scheduled Airway not difficult General Information and Staff Patient location during procedure: Procedural Resident/WEARING APPAREL SHAKER: MARISABEL Zafar CRNA Performed: SRNA Performed by: MARISABEL Yu CRNA Authorized by: MARISABEL Yu CRNA Indications and Patient Condition Indications for airway management: anesthesia Sedation level: Asleep Preoxygenated: yes Patient position: sniffing Mask difficulty assessment: 1 - vent by mask Final Airway Details Final airway type: endotracheal airway Successful airway: ETT Cuffed: yes Successful intubation technique: direct laryngoscopy Facilitating devices/methods: intubating stylet Endotracheal tube insertion site: oral Blade: Shruthi Blade size: #3 ETT size (mm): 8.0 Cormack-Lehane Classification: grade I - full view of glottis Placement verified by: chest auscultation and capnometry Measured from: lips ETT to lips (cm): 21 Number of attempts at approach: 1 Additional Comments Atraumatic, dentition & oral mucosa unchanged [employer] Work Phone: [phone] NotePatient: Regan Coughlin Procedure Information Date/Time: 03/25/23 0700 Procedures: CABG, WITH ATRIAL ABLATION AND CLIP, TRANSESOPHAGEAL ECHOCARDIOGRAM (Chest) Echocardiography transesophageal real-time Location: [facility] Operating Room Surgeons: Alfonso Villarreal MD Past Medical History: Past Medical History: No date: AAA (abdominal aortic aneurysm) (HCC) No date: Afib (CMS/HCC) (HCC) 2020: Coronary artery disease Comment: 2x stents, Dr. Eulalio Gutierrez at [facility] No date: TIA (transient ischemic attack) Past Surgical History: Past Surgical History: 02/2020: CORONARY STENT PLACEMENT Comment: x2 05/20/2022: IR ANGIOGRAM ENDOVASCULAR AORTIC REPAIR Comment: OPEN FEMORAL ARTERY EXPOSURE FOR DELIVERY OF ENDOVASCULAR PROSTHESIS 05/20/2022: OTHER SURGICAL HISTORY; Bilateral Comment: Exploration groin, evacuation of hematoma No date: WISDOM TOOTH EXTRACTION Social History: TOBACCO: reports that he has been smoking cigarettes. He has a 7.50 pack-year smoking history. He has never used smokeless tobacco. ETOH: reports current alcohol use of about 4.0 standard drinks of alcohol per week. Social History Substance and Sexual Activity Drug Use Never Family History: Family History Problem Relation Name Age of Onset ? No Known Problems Mother ? No Known Problems Father Screening: unknown Clinical information reviewed: Allergies Meds Physical Exam Airway Mallampati: II TM distance: >3 FB Neck ROM: full Mouth Open: normalendotracheal tube not in place Cardiovascular Dental (+) Missing, Poor Pulmonary Abdominal Anesthesia Plan patient is NPO appropriate Any family history or previous problems with anesthesia no ASA 4 general Any family history or previous problems with anesthesia no The patient is a current smoker. Patient was previously instructed to abstain from smoking on day of procedure. Patient did not smoke on day of procedure. Anesthetic plan and risks discussed with patient. ERAS Type No ERAS Xanax ordered preop EM Screening STOP-Bang Total Score: 6 - Referral placed Labs: Lab Results Component Value Date WBC 8.5 05/22/2022 HGB 10.7 (L) 05/22/2022 HCT 29.3 (L) 05/22/2022 MCV 96.5 05/22/2022 PLT 153 05/22/2022 Lab Results Component Value Date NA 143 08/14/2022 K 4.5 08/14/2022 CL 105 08/14/2022 CO2 30 08/14/2022 BUN 16 08/14/2022 CREATININE 0.64 (L) 08/14/2022 GLUCOSE 95 08/14/2022 CALCIUM 9.3 08/14/2022 PROT 7.8 05/13/2022 ALKPHOS 97 05/13/2022 AST 27 05/13/2022 ALT 15 05/13/2022 EGFR >90.0 08/14/2022 No echocardiogram results found for the past 14 days 03/20/23 ECG 12-LEAD (Preliminary) This result has not been signed. Information might be incomplete. Impression Sinus rhythm Consider left ventricular hypertrophy Nonspecific T abnormalities, lateral leads Cath EF 45%, wall abnormalities, coronary lesions DSE 6 months Interpretation Summary ? ? Left?Ventricle: Left ventricle size is normal. Normal wall thickness. Normal left ventricular systolic function. The EF by visual approximation is 55%. Normal wall motion. ? Left?Ventricle: Normal left ventricular systolic function. The EF by visual approximation is 55%. ? Right?Ventricle: Right ventricle size is normal. Hyperdynamic systolic function. ? Mitral?Valve: Mildly thickened leaflets. Mild annular calcification. ? Stress?ECG: Conclusion: The stress test is normal. ? Stress?Test: A pharmacological stress test was performed using dobutamine. Hemodynamics are adequate for diagnosis. Blood pressure demonstrated a normal response and heart rate demonstrated a normal response to stress. The patient reported no chest pain during the stress test.[facility]11-24-2023 NoteComprehensive Pre Surgical History and Physical ? Name: Regan Coughlin : 1960 (Age-63 y.o.) Date of Service: Pt seen/examined on 03/20/2023 Procedure Information Date/Time: 03/25/23 0700 Procedures: CABG, WITH ATRIAL ABLATION AND CLIP, TRANSESOPHAGEAL ECHOCARDIOGRAM (Chest) Echocardiography transesophageal real-time Location: [facility] OR [address] [place] [address] Operating Room Surgeons: Alfonso Villarreal MD Chief Complaint: Atherosclerotic heart disease of [place] coronary artery without angina pectoris [I25.10] Unspecified atrial fibrillation (HCC) [I48.91] ASSESSMENT/PLAN: Patient is considered high risk for this high risk procedure/surgery () with no reducible risk factors. Based on the above evaluation, the benefits of the planned procedure likely exceed the risks. The patient is medically optimized to proceed with the planned procedure without any further cardiopulmonary testing. 1) Atherosclerotic heart disease of [place] coronary artery without angina pectoris [I25.10] Unspecified atrial fibrillation (HCC) [I48.91] - Managed per surgery - History and Physical exam - Anesthesia Lab Protocol Orders - Follows with Dr. Gutierrez for cardiology - History of stents yes . Patient instructed to continue aspirin uninterrupted as discontinuation of aspirin in the presence of a coronary stent has been associated with anna-operative stent thrombosis, myocardial infarction and . Patient verbalized understanding rationale and instruction. - Oral anticoagulation with Eliquis - will be held for 5 days as per PAT protocol Toxic Drug Monitoring: Drug: Eliquis Route: Oral Monitoring: EKG - yes VS - BP 129/72 Pulse 62 Temp 36.2 ?C (97.2 ?F) (Temporal) Resp 16 Ht 1.676 m (5' 6) Wt 68 kg (150 lb) SpO2 100% BMI 24.21 kg/m? Labs: BMP, CBC 2) Abdominal aortic aneurysm - infrarenal - from 05-20-22 CT abd/pel: FINDINGS: 1. 6.6 cm abdominal aortic aneurysm with aortoiliac endograft and bilateral renal artery stents appearing in good position. 3) TIA - deficit - No. 4) Current Smoker - Encouraged nicotine cessation. - Per anesthesia protocol to not use nicotine products within 24 hours prior to surgery. - Patient aware surgery could be cancelled if using within 24 hours. Patient verbalized understanding. - 0.25 pack(s) a day for about 30 years - EKG as below - CBC pending 5) HLD -statin therapy - Yes, lipitor -lifestyle modifications encouraged No results found for: CHOL No results found for: HDL No results found for: LDLCALC No results found for: TRIG No results found for: CHOLHDL Visit Type: Pre-Admission Testing Visit Labs Ordered: YES - PER PAT PROTOCOL Sleep Referral Ordered: YES - POSITIVE SCREEN PER SLEEP REFERRAL PROTOCOL Total time spent (which include face to face and non face to face encounters) : 45 minutes PAT Protocol referenced includes: 1. Anesthesia Lab Protocol Orders 2. Perioperative Cardiovascular Risk Assessment 3. Anesthesia Assessment 4. Pain Assessment and Acute Pain Service Consult (if appropriate) 5. Medical Clearance/Consult from Internal Medicine ([facility]) 6. Shower/Wash Order (for designated surgeries) 7. EM Screen and Sleep Clinic Referral (if appropriate) History Of Present Illness: Case: [id number] Date/Time: 03/25/23 0700 Procedures: CABG, WITH ATRIAL ABLATION AND CLIP, TRANSESOPHAGEAL ECHOCARDIOGRAM (Chest) [21710 CPT(R)] Echocardiography transesophageal real-time [50871 CPT(R)] Anesthesia type: General Diagnosis: Atherosclerotic heart disease of [place] coronary artery without angina pectoris [I25.10] Unspecified atrial fibrillation (HCC) [I48.91] From Dr. Villarreal's 02-24-23 office note: Regan Coughlin is a 63 y.o. male referred by Dr. Gutierrez for coronary revascularization. Per note, in February 2020 pt had presented to ED for acute onset chest discomfort. He was taken emergently to the cardiac catheterization lab with an ST elevation IL involving the inferior wall. He underwent cardiac catheterization angioplasty and stenting of the right coronary artery. He had mild residual disease noted in the left anterior descending artery territory. EF was normal at that time. Pt presented to ED on 01/07/23 with c/o worsening SOB for 3 weeks and palpitations. An echocardiogram was completed which demonstrated a normal EF of 50% and wall motion abnormality. While hospitalized he developed afib with RVR. He converted back to NSR and was discharged home on Metoprolol and Eliquis. Pt then underwent a heart catheterization on 02/16/23 which demonstrated left main coronary artery disease with severe proximal LAD stenosis and previously stented right coronary artery which is patent and mild left ventricular systolic dysfunction. Past Medical History: Past Medical History: No date: AAA (ab (more content not included)...[facility]11-24-2023 NoteComprehensive Pre Surgical History and Physical ? Name: Regan Coughlin : 1960 (Age-63 y.o.) Date of Service: Pt seen/examined on 03/20/2023 Procedure Information Date/Time: 03/25/23 0700 Procedures: CABG, WITH ATRIAL ABLATION AND CLIP, TRANSESOPHAGEAL ECHOCARDIOGRAM (Chest) Echocardiography transesophageal real-time Location: [facility] OR Operating Room Surgeons: Alfonso Villarreal MD Chief Complaint: Atherosclerotic heart disease of [place] coronary artery without angina pectoris [I25.10] Unspecified atrial fibrillation (HCC) [I48.91] ASSESSMENT/PLAN: Patient is considered high risk for this high risk procedure/surgery () with no reducible risk factors. Based on the above evaluation, the benefits of the planned procedure likely exceed the risks. The patient is medically optimized to proceed with the planned procedure without any further cardiopulmonary testing. 1) Atherosclerotic heart disease of [place] coronary artery without angina pectoris [I25.10] Unspecified atrial fibrillation (HCC) [I48.91] - Managed per surgery - History and Physical exam - Anesthesia Lab Protocol Orders - Follows with Dr. Gutierrez for cardiology - History of stents yes . Patient instructed to continue aspirin uninterrupted as discontinuation of aspirin in the presence of a coronary stent has been associated with anna-operative stent thrombosis, myocardial infarction and . Patient verbalized understanding rationale and instruction. - Oral anticoagulation with Eliquis - will be held for 5 days as per PAT protocol Toxic Drug Monitoring: Drug: Eliquis Route: Oral Monitoring: EKG - yes VS - BP 129/72 Pulse 62 Temp 36.2 ?C (97.2 ?F) (Temporal) Resp 16 Ht 1.676 m (5' 6) Wt 68 kg (150 lb) SpO2 100% BMI 24.21 kg/m? Labs: BMP, CBC 2) Abdominal aortic aneurysm - infrarenal - from 05-20-22 CT abd/pel: FINDINGS: 1. 6.6 cm abdominal aortic aneurysm with aortoiliac endograft and bilateral renal artery stents appearing in good position. 3) TIA - deficit - No. 4) Current Smoker - Encouraged nicotine cessation. - Per anesthesia protocol to not use nicotine products within 24 hours prior to surgery. - Patient aware surgery could be cancelled if using within 24 hours. Patient verbalized understanding. - 0.25 pack(s) a day for about 30 years - EKG as below - CBC pending 5) HLD -statin therapy - Yes, lipitor -lifestyle modifications encouraged No results found for: CHOL No results found for: HDL No results found for: LDLCALC No results found for: TRIG No results found for: CHOLHDL Visit Type: Pre-Admission Testing Visit Labs Ordered: YES - PER PAT PROTOCOL Sleep Referral Ordered: YES - POSITIVE SCREEN PER SLEEP REFERRAL PROTOCOL Total time spent (which include face to face and non face to face encounters) : 45 minutes PAT Protocol referenced includes: 1. Anesthesia Lab Protocol Orders 2. Perioperative Cardiovascular Risk Assessment 3. Anesthesia Assessment 4. Pain Assessment and Acute Pain Service Consult (if appropriate) 5. Medical Clearance/Consult from Internal Medicine (IMS) 6. Shower/Wash Order (for designated surgeries) 7. EM Screen and Sleep Clinic Referral (if appropriate) History Of Present Illness: Case: [id number] Date/Time: 03/25/23 0700 Procedures: CABG, WITH ATRIAL ABLATION AND CLIP, TRANSESOPHAGEAL ECHOCARDIOGRAM (Chest) [20660 CPT(R)] Echocardiography transesophageal real-time [47110 CPT(R)] Anesthesia type: General Diagnosis: Atherosclerotic heart disease of [place] coronary artery without angina pectoris [I25.10] Unspecified atrial fibrillation (HCC) [I48.91] From Dr. Villarreal's 02-24-23 office note: Regan Coughlin is a 63 y.o. male referred by Dr. Gutierrez for coronary revascularization. Per note, in February 2020 pt had presented to ED for acute onset chest discomfort. He was taken emergently to the cardiac catheterization lab with an ST elevation IL involving the inferior wall. He underwent cardiac catheterization angioplasty and stenting of the right coronary artery. He had mild residual disease noted in the left anterior descending artery territory. EF was normal at that time. Pt presented to ED on 01/07/23 with c/o worsening SOB for 3 weeks and palpitations. An echocardiogram was completed which demonstrated a normal EF of 50% and wall motion abnormality. While hospitalized he developed afib with RVR. He converted back to NSR and was discharged home on Metoprolol and Eliquis. Pt then underwent a heart catheterization on 02/16/23 which demonstrated left main coronary artery disease with severe proximal LAD stenosis and previously stented right coronary artery which is patent and mild left ventricular systolic dysfunction. Past Medical History: Past Medical History: No date: AAA (ab (more content not included)...[facility]11-24-2023 Anesthesiology Preoperative evaluation and management note* Anesthesia Preprocedure Evaluation - Yovani Booth DO - 03/20/2023 11:29 AM EST Patient: Regan Coughlin Procedure Information Date/Time: 03/25/23 0700 Procedures: CABG, WITH ATRIAL ABLATION AND CLIP, TRANSESOPHAGEAL ECHOCARDIOGRAM (Chest) Echocardiography transesophageal real-time Location: [facility] OR Operating Room Surgeons: Alfonso Villarreal MD Past Medical History: Past Medical History: No date: AAA (abdominal aortic aneurysm) ([facility]) No date: Afib (CMS/HCC) ([facility]) 2019: Coronary artery disease Comment: 2x stents, Dr. Eulalio Gutierrez at [facility] No date: TIA (transient ischemic attack) Past Surgical History: Past Surgical History: 02/2020: CORONARY STENT PLACEMENT Comment: x2 05/20/2022: IR ANGIOGRAM ENDOVASCULAR AORTIC REPAIR Comment: OPEN FEMORAL ARTERY EXPOSURE FOR DELIVERY OF ENDOVASCULAR PROSTHESIS 05/20/2022: OTHER SURGICAL HISTORY; Bilateral Comment: Exploration groin, evacuation of hematoma No date: WISDOM TOOTH EXTRACTION Social History: TOBACCO: reports that he has been smoking cigarettes. He has a 7.50 pack-year smoking history. He has never used smokeless tobacco. ETOH: reports current alcohol use of about 4.0 standard drinks of alcohol per week. Social History Substance and Sexual Activity Drug Use Never Family History: Family History Problem Relation Name Age of Onset No Known Problems Mother No Known Problems Father Screening: unknown Clinical information reviewed: Allergies Meds Physical Exam Airway Mallampati: II TM distance: >3 FB Neck ROM: full Mouth Open: normalendotracheal tube not in place Cardiovascular Dental (+) Missing, Poor Pulmonary Abdominal Anesthesia Plan patient is NPO appropriate Any family history or previous problems with anesthesia no ASA 4 general Any family history or previous problems with anesthesia no The patient is a current smoker. Patient was previously instructed to abstain from smoking on day of procedure. Patient did not smoke on day of procedure. Anesthetic plan and risks discussed with patient. ERAS Type No ERAS Xanax ordered preop EM Screening STOP-Bang Total Score: 6 - Referral placed Labs: Lab Results Component Value Date WBC 8.5 05/22/2022 HGB 10.7 (L) 05/22/2022 HCT 29.3 (L) 05/22/2022 MCV 96.5 05/22/2022 PLT 153 05/22/2022 Lab Results Component Value Date NA 143 08/14/2022 K 4.5 08/14/2022 CL 105 08/14/2022 CO2 30 08/14/2022 BUN 16 08/14/2022 CREATININE 0.64 (L) 08/14/2022 GLUCOSE 95 08/14/2022 CALCIUM 9.3 08/14/2022 PROT 7.8 05/13/2022 ALKPHOS 97 05/13/2022 AST 27 05/13/2022 ALT 15 05/13/2022 EGFR >90.0 08/14/2022 No echocardiogram results found for the past 14 days 03/20/23 ECG 12-LEAD (Preliminary) This result has not been signed. Information might be incomplete. Impression Sinus rhythm Consider left ventricular hypertrophy Nonspecific T abnormalities, lateral leads Cath EF 45%, wall abnormalities, coronary lesions DSE 6 months Interpretation Summary Left Ventricle: Left ventricle size is normal. Normal wall thickness. Normal left ventricular systolic function. The EF by visual approximation is 55%. Normal wall motion. Left Ventricle: Normal left ventricular systolic function. The EF by visual approximation is 55%. Right Ventricle: Right ventricle size is normal. Hyperdynamic systolic function. Mitral Valve: Mildly thickened leaflets. Mild annular calcification. Stress ECG: Conclusion: The stress test is normal. Stress Test: A pharmacological stress test was performed using dobutamine. Hemodynamics are adequate for diagnosis. Blood pressure demonstrated a normal response and heart rate demonstrated a normal response to stress. The patient reported no chest pain during the stress test. [facility] Work Phone: [phone] 666-917011-01-2023 NoteAddended by: DEON LANGSTON on: 02/25/2023 02:06 PM Modules accepted: [facility]* Addendum Note - MARISABEL Zuñiga CNP - 02/25/2023 2:06 PM EDTAddended by: DEON LANGSTON on: 02/25/2023 02:06 PM Modules accepted: Orders [id number] Note* Addendum Note - MARISABEL Zuñiga CNP - 02/25/2023 2:06 PM EDTAddended by: DEON LANGSTON on: 02/25/2023 02:06 PM Modules accepted: Orders [facility] [id number] Miscellaneous Notes* Addendum Note - MARISABEL Zuñiga CNP - 02/25/2023 2:06 PM EDTAddended by: DEON LANGSTON on: 02/25/2023 02:06 PM Modules accepted: Orders * Telephone Encounter - MARISABEL Zuñiga CNP - 02/25/2023 2:05 PM EDT Meds sent to [facility] in [place]. Surg pro orders placed. MARISABEL Shah CNP 02/25/23 * Telephone Encounter - Catia Foster MA - 02/25/2023 8:24 AM EDT Prep for Procedure Order Request: 02/25/23 Surgeon: Villarreal Surgery/Procedure: CABG, Atrial Ablation w/ Clip, and SHAILA Diagnosis: I25.10 and I48.91 Plan Admit: yes PAT Appointment: yes Date if yes: 03/20/23 @ 11 am Date of Surgery/Procedure: 03/25/23 @ 7 am Medication needed held: [x] None [] Other: Medication needed prescribed: [] None [x] Nasal ointment and mouth rinse [] Other: documented in this [facility]11-01-2023 Telephone encounter Note* Telephone Encounter - MARISABEL Zuñiga CNP - 02/25/2023 2:05 PM EDT Meds sent to [facility] in [place]. Surg pro orders placed. MARISABEL Shah CNP 02/25/23 [id number] NotePrep for Procedure Order Request: 02/25/23 Surgeon: Villarreal Surgery/Procedure: CABG, Atrial Ablation w/ Clip, and SHAILA Diagnosis: I25.10 and I48.91 Plan Admit: yes PAT Appointment: yes Date if yes: 03/20/23 @ 11 am Date of Surgery/Procedure: 03/25/23 @ 7 am Medication needed held: [x] None [] Other: Medication needed prescribed: [] None [x] Nasal ointment and mouth rinse [] Other: [facility]11-01-2023 Telephone encounter Note* Telephone Encounter - Catia Foster MA - 02/25/2023 8:24 AM EDT Prep for Procedure Order Request: 02/25/23 Surgeon: Villarreal Surgery/Procedure: CABG, Atrial Ablation w/ Clip, and SHAILA Diagnosis: I25.10 and I48.91 Plan Admit: yes PAT Appointment: yes Date if yes: 03/20/23 @ 11 am Date of Surgery/Procedure: 03/25/23 @ 7 am Medication needed held: [x] None [] Other: Medication needed prescribed: [] None [x] Nasal ointment and mouth rinse [] Other: [facility] [id number] NoteOrders Placed This Encounter Procedures CT chest wo IV contrast Standing Status: Future Standing Expiration Date: 02/25/2024 Order Specific Question: Record Decision Support information? Answer: No Order Specific Question: Decision Support Exception Answer: Emergency Medical Condition (MA) [1] Order Specific Question: What is the patient's sedation requirement? Answer: No Sedation Vascular US carotid artery duplex bilateral Standing Status: Future Standing Expiration Date: 02/24/2025 Vascular US upper extremity arterial PVR Standing Status: Future Standing Expiration Date: 02/24/2025[facility]10-31-2023 History of Present illness Narrative* Alfonso Villarreal MD - 02/24/2023 11:00 AM EDT Images from the original note were not included. [facility] [address] [facility] [address] Dept: [phone] Dept Loc: [phone] Visit type: New Reason for Visit: Surgical evaluation for multivessel coronary artery disease Assessment and plan Multivessel coronary artery disease including a left main trunk stenosis. Recommend revascularization of the LAD system as well as the circumflex system. This would likely include a large first obtuse marginal coronary artery and possibly the distal circumflex. The LAD would need to be revascularized as well. Additionally, right coronary artery will need to be considered for revascularization as well although this lesion is approximately 60%. Paroxysmal atrial fibrillation-we will hold Eliquis preoperatively. Recommend left atrial appendageclip as well as pulmonary vein isolation. No valvular abnormalities are seen on the echocardiogram. While the echo also does not comment on right ventricular dysfunction, there is some scarring of the inferior wall on the left ventriculogram, which we should consider during the intraoperative transesophageal echo. Would recommend [place]-Ganzcatheterization for this procedure. Preprocedurally, we will obtain renal artery studies, CT scan of the chest to assess the aorta, andcarotid Dopplers to rule out concomitant carotid artery disease. The risk benefits and alternatives to surgery were discussed in detail with the patient and he wishes to proceed on an elective basis. History of Present Illness Regan Coughlin is a 63 y.o. male referred by Dr. Gutierrez for coronary revascularization. Per note, in February 2020 pt had presented to ED for acute onset chest discomfort. He was taken emergently to the cardiac catheterization lab with an ST elevation IL involving the inferior wall. He underwent cardiac catheterization angioplasty and stenting of the right coronary artery. He had mildresidual disease noted in the left anterior descending artery territory. EF was normal at that time. Pt presented to ED on 01/07/23 with c/o worsening SOB for 3 weeks and palpitations. An echocardiogram was completed which demonstrated a normal EF of 50% and wall motion abnormality. While hospitalized he developed afib with RVR. He converted back to NSR and was discharged home on Metoprolol and Eliquis. Pt then underwent a heart catheterization on 02/16/23 which demonstrated left main coronary artery disease with severe proximal LAD stenosis and previously stented right coronary artery which is patent and mild left ventricular systolic dysfunction. Pt is current smoker. Pt is currently taking Eliquis. Pt is here now for an evaluation. Past Medical History Past Medical History: Diagnosis Date AAA (abdominal aortic aneurysm) Coronary artery disease 2019 2x stents, Dr. Eulalio Gutierrez at [facility] TIA (transient ischemic attack) Past Surgical History Past Surgical History: Procedure Laterality Date CORONARY STENT PLACEMENT 02/2020 x2 IR ANGIOGRAM ENDOVASCULAR AORTIC REPAIR 05/20/2022 OPEN FEMORAL ARTERY EXPOSURE FOR DELIVERY OF ENDOVASCULAR PROSTHESIS OTHER SURGICAL HISTORY Bilateral 05/20/2022 Exploration groin, evacuation of hematoma WISDOM TOOTH EXTRACTION Family History Family History Problem Relation Name Age of Onset No Known Problems Mother No Known Problems Father Social History Social History Tobacco Use Smoking status: Every Day Packs/day: 0.25 Years: 30.00 Additional pack years: 0.00 Total pack years: 7.50 Types: Cigarettes Smokeless tobacco: Never Tobacco comments: 4 ciggs per day Vaping Use Vaping Use: Never used Substance Use Topics Alcohol use: Yes Alcohol/week: 4.0 standard drinks of alcohol Types: 4 Shots of liquor per week Drug use: Never Allergies No Known Allergies Medications Current Outpatient Medications: aspirin 81 MG EC tablet, Take 81 mg by mouth daily., Disp: , Rfl: atorvastatin (Lipitor) 80 MG tablet, Take 80 mg by mouth Nightly., Disp: , Rfl: Eliquis 5 MG tablet, Take 5 mg by mouth 2 times daily., Disp: , Rfl: furosemide (Lasix) 40 MG tablet, Take 40 mg by mouth daily., Disp: , Rfl: metoprolol tartrate (Lopressor) 25 MG tablet, Take 25 mg by mouth 2 times daily., Disp: , Rfl: POTASSIUM CHLORIDE PO, Take 1 tablet by mouth daily., Disp: , Rfl: clopidogrel (Plavix) 75 MG tablet, Take 75 mg by mouth daily., Disp: , Rfl: Review of Systems Review of Systems Constitutional: Positive for fatigue. Cardiovascular: Positive for palpitations. All other systems reviewed and are negative. Physical Exam Vitals: There were no vitals taken for this visit. Constitutional: General: Not in acute distress. Appearance: Normal appearance. Not toxic-appearing. Ear, nose, mouth: Bilateral external ear and nose normal. Nose: Nose normal. Mouth: Appearance normal, no bleeding, moist mucus membranes Eyes: General: No scleral icterus. No discharge from bilateral eyes Extraocular Movements: Extraocular movements intact. Pupils equal and reactive bilaterally Cardiovascular: Heart: Regular rhythm. Normal heart sounds. Edema: no edema in bilateral lower extremities Pulmonary: Effort: Pulmonary effort is normal. No respiratory distress. Breath sounds: Normal breath sounds. No wheezing. Chest wall: No tenderness. Abdominal: Appearance: Not distended Palpations: There is no abdominal tenderness, no guarding. Musculoskeletal: Bilateral upper and lower extremities: Normal range of motion, no deformity Head: Normocephalic and atraumatic. Neck: Normal range of motion and neck supple. No muscular tenderness. Lymphadenopathy: Cervical: No cervical adenopathy. Skin: General: Skin is warm and dry. Coloration: Skin is not jaundiced. Neurological: General: No focal deficit present. Cranial Nerves: No obvious cranial nerve deficit. Psychiatric: Mood and Affect: Mood normal. Thought Content: Thought content normal. Patient has good judgement and insight Mental Status: Alert and oriented to place, person, and time. Labs Auto WBC Date/Time Value Ref Range Status 05/22/2022 12:26 AM 8.5 3.6 - 10.7 10*3/uL Final 05/20/2022 08:35 PM 15.4 (H) 3.6 - 10.7 10*3/uL Final Hemoglobin Date/Time Value Ref Range Status 05/22/2022 11:44 AM 10.7 (L) 13.0 - 18.0 g/dL Final 05/22/2022 12:26 AM 11.0 (L) 13.0 - 18.0 g/dL Final Platelets Date/Time Value Ref Range Status 05/22/2022 12:26 AM 153 140 - 440 10*3/uL Final 05/20/2022 08:35 PM 183 140 - 440 10*3/uL Final SODIUM Date/Time Value Ref Range Status 08/14/2022 08:59 AM 143 135 - 145 mmol/L Final 05/22/2022 12:26 AM 136 135 - 145 mmol/L Final POTASSIUM Date/Time Value Ref Range Status 08/14/2022 08:59 AM 4.5 3.5 - 5.1 mmol/L Final 05/22/2022 12:26 AM 3.7 3.5 - 5.1 mmol/L Final CREATININE Date/Time Value Ref Range Status 08/14/2022 08:59 AM 0.64 (L) 0.66 - 1.25 mg/dL Final 05/22/2022 12:26 AM 0.67 0.66 - 1.25 mg/dL Final Imaging Heart Catheterization 02/16/23 TTE 01/08/23 TTE 10/30/21 Patient Care Team: PCP: Sophie Craft MD Cardiology: Eulalio Gutierrez MD Disclaimer INFORMED CONSENT:The nature and purpose of the proposed treatment or procedure have been discussed.The risks and benefits of the proposed treatment or procedures have been reviewed. Alternatives have been reviewed in addition to the risks and benefits of not receiving treatments or undergoing procedures. Pursuant to this discussion, the patient agrees to undergo the proposed treatment or procedure. Captured images seen in this note from are not a substitute for a comprehensive interpretation of the entire data set as reflected by the interpreting physician with regard to radiology, echocardiography, and other diagnostic images. This note may have been dictated using [employer] Medical Practice Edition 2.6 and/or [employer] Voice Recognition Feature. The document was proofread, however unrecognized voice recognition glove turner and former errors may be present. documented in this [facility]09-16-2023 [facility] Medical Records Department [address] [place] [address] Discharge Summary 01/10/23 1636 MR#: [id number] Acct: [id number] Name: LORRI COUGHLIN Rep #: [id number] : 1960 62 From: Roosevelt Kruse MD PCP: Dr. Sophie Craft MD Status:DIS IN Location: [place] [address]-1 Providers Date of Admission: 01/07/23 Primary Care Physician: Dr. Sophie Craft MD Reason For Visit: ACUTE HEART FAILURE Diagnosis Discharge Diagnosis (1) Elevated troponin: Status: Acute Code(s): R77.8 - Other specified abnormalities of plasma proteins (2) CHF (congestive heart failure): Status: Acute Code(s): I50.9 - Heart failure, unspecified Qualifiers: Heart failure type: diastolic Heart failure chronicity: acute on chronic Qualified Code (s): I50.33 - Acute on chronic diastolic (congestive) heart failure (3) Hypertensive urgency: Status: Acute Code(s): I16.0 - Hypertensive urgency Medications at Discharge Home Medications aspirin 81 mg tablet,delayed release 81 mg PO DAILY@0800 HEALTH MAINTENANCE 10/30/21 atorvastatin 80 mg tablet 80 mg PO QHS hyperlipidemia #90 tabs 12/02/21 apixaban 5 mg tablet (Eliquis) 5 mg PO BID 30 days #60 tabs 01/10/23 levofloxacin 750 mg tablet 750 mg PO DAILY #4 tabs 01/10/23 metoprolol tartrate 25 mg tablet 12.5 mg (1/2 x 25 mg) PO BID 30 days #30 tabs 01/10/23 Hospital Course Operations None Procedures 2-D Echocardiogram Summary of Care Provided Minutes Spent on Discharge: 37 Hospital Course: Per HPI: LORRI COUGHLIN, is a 62 M with a significant history of CAD status post stent; and AAA who presents to the emergency department with 3-week history of progressively worsening shortness of breath. Associated with his symptoms is a productive cough. Patient is still on antibiotics and steroids obtained from a visit to the urgent care. Hospital Course: 1. Demand ischemia secondary to possible heart failure versus pneumonia versus A-fib/CAD status post stent/HTN/HLD???62-year-old male presents to the hospital with increasing shortness of breath. He says that he has noticed intermittent palpitations and on admission it was thought that he might be due to CHF. He was started on IV Lasix and an echo was obtained which showed normal EF but an abnormal wall wall motion that was consistent with what was seen back in 2019. During his admission he did develop A-fib with RVR and given his history of feeling intermittent palpitations it is likely that he has paroxysmal A-fib. He was given a dose of IV Cardizem which did control his heart rate and then he was transitioned to p.o. metoprolol 25 mg twice daily. The night that the metoprolol was started however he developed significant orthostatic hypotension which resolved. He had a similar episode though not as extreme, the morning of discharge therefore I elected to decrease his metoprolol doses from 25 mg p.o. twice daily down to 12-1/2 mg p.o. twice daily. His rhythm had returned to normal sinus at that time but given his wall motion abnormality and his history of cardiac stents he was placed on Eliquis. I do recommend that he follow-up with cardiolo gy in 2 to 4 weeks and his PCP in 3 to 5 days. I discussed with him the plan for discharge today an d I discussed that we could potentially watch him another day to make sure that he does not have any more orthostatic hypotensive episodes however he elected to go home today. He expressed understand ing of the risk benefits of discharge. I do recommend that he obtain outpatient lab work by his PCP to monitor his creatinine as well as his potassium as this was low on admission on the day of disch arge she was 3.2 and did receive 60 mEq of p.o. potassium. Because of the concern for pneumonia and white count that was slightly elevated he was discharged on 4 more days of Levaquin as well. Physical Exam Narrative General: Alert, Oriented x3, Cooperative, No apparent distress HEENT: Atraumatic, PERRLA, EOMI, Normocephalic Oral: Moist Mucosa Neck: Supple, No JVD Lungs: Diminished, Normal air movement, No rhonchi, No wheeze, No rales Cardiovascular: Regular rate and rhythm, Normal S1, Normal S2, No murmurs Abdomen: Soft, Non Tender, Non-Distended, No Hepato-splenomegaly Extremities: No edema, Capillary Refill Less than 3 Seconds Skin: No rashes, No breakdown Musculoskeletal: No Tenderness to Palpation of Joints or Extremities Neurological: Cranial nerves II-XII grossly intact, Motor Exam 5/5 strength throughout, Sensory exam intact to light touch and pain Psych/Mental Status: Flat Weight / BMI Weight Weight: 135 lb 2.294 oz Body Mass Index (BMI) 19.9 ABG / Lab / Microbiology Data 01/10/23 07:42 01/10/23 07:42 Laboratory: Laboratory Results - last 24 hr 01/09/23 23:36: POC Glucose 148 H 01/10/23 07:42: WBC 11.2 H, RBC 4.18 L, Hgb 13 (more content not included)... [facility]09-16-2023 Discharge summary Author Roosevelt Kruse [facility] January 10, 2023 12:47pm Note Date/Time January 10, 2023 12:44pm [facility] Medical Records Department [address] [place] [address] Instructions for Home/Discharge Instructions 01/10/23 1243 MR#: [id number] Acct: [id number] Name: LORRI COUGHLIN Rep #:[id number] : 1960 62 From: Roosevelt ortega MD PCP: Dr. Sophie Craft MD Status:ADM IN Discharge Instructions Diet Discharge Diet: Low fat / Low cholesterol Activity Discharge Activity: Return to Normal Activity Dressing / Incision Call your doctor if you observe: Fever of 101 or Higher, Shortness of breath, Dizziness, Fainting spells, Swelling in the ankles, Chest pain and Increased palpitations (irregular heartbeat) Follow Up Care Test Results: Test results from this visit will be discussed in further detail at your follow- up appointment, if applicable. Discharge Plan Admission Admit Date/Time: 01/07/23 21:58 Attending Provider: Roosevelt Kruse Primary Care Provider: Sophie Craft Consulting Providers: Cesar Henriquez Discharge Orders/Prescriptions Prescriptions: New Eliquis 5 mg Tablet 5 mg PO BID 30 Days Qty: 60 0RF metoprolol tartrate 25 mg Tablet 12.5 mg PO BID 30 Days Qty: 30 0RF levofloxacin 750 mg tablet 750 mg PO DAILY Qty: 4 0RF Continued aspirin 81 mg Tablet,Delayed Release (Dr/Ec) 81 mg PO DAILY@0800 atorvastatin 80 mg tablet 80 mg PO QHS Qty: 90 3RF Referrals / Follow Up: Sophie Craft MD [Primary Care Provider] - Within 1 Week Disposition Disposition (needs filled in before D/C Order can be placed): Home, Self Care 01/10/23 1247<Electronically signed by Roosevelt Kruse MD>Roosevelt Kruse MD CC: Dr. Cesar Henriquez MD; Dr. Sophie Craft MD ~ Signed [facility] Work Phone: 1(100) 184-773709-16-2023 Progress note Author Cesar Henriquez [facility] January 10, 2023 12:05am Note Date/Time January 10, 2023 12:01am [facility] Medical Records Department [address] [place] [address] Progress Note 01/10/23 0000 MR#: [id number] Acct: [id number] Name: LORRI COUGHLIN Rep #:[id number] : 1960 62 From: Cesar Henriquez MD PCP: Dr. Sophie Craft MD Status:ADM IN Location: [place] [address] Progress Note Notified by nurse without outpatient was orthostatic positive. Order to change activity level to up with assistance; and compression stockings to thigh. We will stop Lasix IV at this time. Rounding MD to evaluate further in a.m. 01/10/23 0005 <Electronically signed by Cesar Henriquez MD> Cesar Henriquez MD Cosigner Signature (if applicable): CC: ~ Signed [facility] Work Phone: 1(659) 552-103709-15-2023 Progress note Author Roosevelt Kruse [facility] January 09, 2023 10:41am Note Date/Time January 09, 2023 10:41am [facility] Medical Records Department [address] [place] [address] Progress Note - Hospitalist 01/09/23 1038 MR#: [id number] Acct: [id number] Name: LORRI COUGHLIN Rep #:[id number] : 1960 62 From: Roosevelt ortega MD PCP: Dr. Sophie Craft MD Status:ADM IN Location: [place] [address] Subjective Subjective Went into A-fib with RVR overnight, EKG appears to have irregular beats with possible flutter versus A-fib. Denies any chest pain or shortness of breath Objective Data Objective Data Vital Signs: Vital Signs Temp Pulse Resp BP Pulse Ox O2 Del Method 97 F L 84 18 135/75 H 94 Room Air 01/09/23 10:01/09/23 10:01/09/23 10:01/09/23 10:01/09/23 10:01/09/23 10:09 Oxygen Delivery Method Room Air Weight: 142 lb 3.17 oz Body Mass Index (BMI) 20.9 Intake & Output: Intake and Output for Last 24 Hours 01/08/23 01/09/23 01/10/23 03:59 03:59 03:59 Intake Total 930 / 930 Balance 930 / 930 Lab / Micro Data 01/09/23 05:45 01/09/23 05:45 Labs: Laboratory Results - last 24 hr 01/09/23 05:45: WBC 10.7, RBC 3.87 L, Hgb 12.8 L, Hct 36.8 L, MCV 95.1 H, MCH 33.1 H, MCHC 34.8, RDW Std Deviation 45.3 H, RDW Coeff of Marcos 13.2, Plt Count 258, MPV 10.0, Immature Gran % (Auto) 0.500, Neut % (Auto) 72.6 H, Lymph % (Auto) 15.3 L, [place] % (Auto) 11.1 H, Eos % (Auto) 0.3, Baso % (Auto) 0.2, Absolute Neuts (auto) 7.8 H, Absolute Lymphs (auto) 1.63, Nucleated RBC % 0, Sodium 134 L, Potassium 2.9 L, Chloride 100, Carbon Dioxide 29.0, Anion Gap 5, BUN 18, Creatinine 1.23, Estim Creat Clear Calc 56.08, Est GFR (MDRD) Af Amer 76, Est GFR (MDRD) Non-Af 63, BUN/Creatinine Ratio 14.6, Glucose 105, Calcium 8.9, TSH 1.57 Radiography Diagnostic Testing: Radiology Impression Echocardiogram 01/08/23 05:55 Interpretation Summary Normal LV size. Left ventricular systolic function is lower limits of normal. The estimated ejection fraction is 50 %. Mild concentric left ventricular hypertrophy. There are regional wall motion abnormalities as specified. Ordering Physician: Cesar Henriquez Referring Physician: Sophie Craft M.D. Performed By: Raven Mcintyre RCS Physical Exam Narrative General: Alert, Oriented x3, Cooperative, No apparent distress HEENT: Atraumatic, PERRLA, EOMI, Normocephalic Oral: Moist Mucosa Neck: Supple, No JVD Lungs: Diminished, Normal air movement, No rhonchi, No wheeze, No rales Cardiovascular: Irregular rate and rhythm, Normal S1, Normal S2, No murmurs Abdomen: Soft, Non Tender, Non-Distended, No Hepato-splenomegaly Extremities: No edema, Capillary Refill Less than 3 Seconds Skin: No rashes, No breakdown Musculoskeletal: No Tenderness to Palpation of Joints or Extremities Neurological: Cranial nerves II-XII grossly intact, Motor Exam 5/5 strength throughout, Sensory exam intact to light touch and pain Psych/Mental Status: Flat Assessment & Plan Assessment/Plan (1) Elevated troponin: (2) CHF (congestive heart failure): QUALIFIERS: Heart failure type: diastolic Heart failure chronicity: acute on chronic Qualified Code(s): I50.33 - Acute on chronic diastolic (congestive) heart failure (3) Hypertensive urgency: PLAN: Plan 1. Demand ischemia secondary to possible heart failure versus pneumonia versus A-fib/CAD status post stent/HTN/HLD ? Repeat echo with no wall motion abnormality and a normal EF however this wall motion abnormality was seen in 2019 ? Continue with IV Lasix ? She did go into A-fib/flutter overnight with a rapid ventricular rate, he doesstate that he has had palpitations in the past but has not been evaluated ? Will give him a dose of Cardizem IV and then if this controls his heart rate we will transition him to p.o. metoprolol and start him on Eliquis ? Given his cough and his elevated white count on admission is 17 down to 12.2, will start on Levaquin and obtain a sputum culture ? Continue with aspirin, his stents were placed in 2019 and will monitor his blood pressures and make adjustments as necessary, he did have an elevated bloodpressure on admission that resolved very quickly with the addition of blood pressure medications ? Continue with Lipitor 2. Hypokalemia ? We will monitor and replace ? Mag and Phos are normal DVT: Lovenox Charges/Coding Visit Charges Inpatient E&M: 47364 Subs Hosp L2 01/09/23 1041 <Electronically signed by Roosevelt Kruse MD> Cosigner Signature (if applicable): CC: ~ Signed [facility] Work Phone: 1(576) 526-678909-14-2023 History and physical note Author Cesar Henriquez [facility] January 08, 2023 10:13am Note Date/Time January 07, 2023 9:55pm [facility] Medical Records Department [address] [place] [address] H&P Exam - Hospitalist 01/07/232153 MR#: [id number] Acct: [id number] Name: LORRI COUGHLIN Rep #:[id number] : 1960 62 From: Cesar Henriquez MD PCP: Dr. Sophie Craft MD Status:ADM IN Location: [place] [id number] HPI - General General Date of Admission: 01/07/23 Date of Service: 01/07/23 Chief Complaint: Shortness of breath HPI Narrative LORRI COUGHLIN, is a 62 M with a significant history of CAD status post stent; and AAA who presents to the emergency department with 3-week history of progressively worsening shortness of breath. Associated with his symptoms is a productive cough. Patient is still on antibiotics and steroids obtained from a visit to the urgent care. [facility] Medical History (Updated 01/08/23 @ 10:[address] 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) Home Medications aspirin 81 mg tablet,delayed release 81 mg PO DAILY@0800 HEALTH MAINTENANCE 10/30/21 [History Last Taken 10/30/21] atorvastatin 80 mg tablet 80 mg PO QHS hyperlipidemia #90 tabs 12/02/21 [Rx Last Taken Unknown] Allergy/AdvReac Type Severity Reaction Status Date / Time No Known Allergies Allergy Verified 01/07/23 19:20 Family History Father Colon cancer Surgical History History of coronary artery stent placement (03/22/20) Social History Smoking Status: Current every day smoker tobacco type: cigarettes Tobacco: How many years used: 40 alcohol intake: never substance use type: does not use what type of physical activity do you participate in: none ROS ROS Narrative Pertinent positives and pertinent negatives as noted in HPI. All other systems were reviewed and are negative Vital Signs Vital Signs Vital Signs: 01/07/23 19:18 01/07/23 19:36 01/07/23 20:20 Temperature 97 F L Temperature Source Oral Pulse Rate 102 H Respiratory Rate 16 Respiratory Effort Normal Respiratory Depth Normal Respiratory Pattern Normal Blood Pressure 198/117 H Blood Pressure Mean 144 Pulse Ox 98 Oxygen Delivery Method Room Air Room Air 01/07/23 20:18 01/07/23 20:23 01/07/23 20:32 Temperature Temperature Source Pulse Rate 94 Respiratory Rate 93 H Respiratory Effort Respiratory Depth Respiratory Pattern Blood Pressure 168/114 H 174/95 H 158/92 H Blood Pressure Mean 132 121 114 Pulse Ox Oxygen Delivery Method Weight Weight: 69.882 kg Body Mass Index (BMI) 22.7 Physical Exam Narrative Physical exam: General: Well-nourished, well-developed. Head: Normocephalic, atraumatic, no tenderness Eyes: Vision is grossly intact. EOMI ENT, no trauma, moist mucous membranes, no rhinorrhea Neck: Nontender, No thyromegaly. CVS: Regular rate and rhythm. S1-S2 present. No murmur, gallop or rub. Respiratory : Blood tinged sputum diminished. Chest wall nontender Abdomen: Soft, nontender, nondistended, normal bowel sounds, no masses : Deferred Back: Nontender, no CVA tenderness. Extremities: Nontender full range of motion, no trauma Skin: Normal color, no trauma, abrasions Neuro: Alert, oriented, cranial nerves II through XII grossly intact. Psychiatry: Normal mood. Normal affect. Not depressed. Not anxious. Results Lab / Micro Data 01/08/23 05:38 01/08/23 05:38 Labs: Laboratory Results - last 24 hr 01/07/23 20:13: WBC 17.9 H, RBC 3.51 L, Hgb 12.0 L, Hct 33.8 L, MCV 96.3 H, MCH 34.2 H, MCHC 35.5, RDW Std Deviation 46.8 H, RDW Coeff of Marcos 13.4, Plt Count 230, MPV 9.5, Immature Gran % (Auto) 0.600, Neut % (Auto) 75.3 H, Lymph % (Auto)13.7 L, [place] % (Auto) 10.1 H, Eos % (Auto) 0.1, Baso % (Auto) 0.2, Absolute Neuts (auto) 13.5 H, Absolute Lymphs (auto) 2.45, Nucleated RBC % 0, Differential Comment SCANNED, Diff Path Review August, Sodium 137, Potassium 3.7, Chloride 103, Carbon Dioxide 28.0, Anion Gap 6, BUN 21 H, Creatinine 1.41 H, Estim Creat Clear Calc 53.00, Est GFR (MDRD) Af Amer 65, Est GFR (MDRD) Non-Af54 L, BUN/Creatinine Ratio 14.9, Glucose 105, Calcium 8.7, Troponin I High Sens 127 H*, B-Natriuretic Peptide 1010.2 H Radiology Impression Chest X-Ray 01/07/23 20:25 IMPRESSION: Mild interstitial edema or infiltrates. Small pleural effusions. Electronically Signed: Giorgio Tamayo MD at 20:43 EDT , Assessment & Plan Assessment/Plan (1) Elevated troponin: (2) CHF (congestive heart failure): QUALIFIERS: Heart failure type: diastolic Heart failure chronicity: acute on chronic Qualified Code(s): I50.33 - Acute on chronic diastolic (congestive) heart failure (3) Hypertensive urgency: PLAN: Plan Acute on chronic heart failure with preserved ejection fraction. Place on monitored bed on progressive care unit Weight on admission to the floor; and then daily Strict I&O's CXR independently interpreted confirms mild interstitial edema or infiltrates plus small pleural effusions. Agrees with radiology interpretation. Emergency department labs reviewed confirms BNP of 1010.2 Diuresis with Lasix 40 mg IV twice daily. Transthoracic echocardiogram to evaluate left ventricular wall motion and systolic function. Monitor electrolytes and renal function Trend blood pressure Fluid restriction of 1500 mls daily 2 g cardiac diet Hypertensive urgency Patient reports not being on home blood pressure medication. Started patient onamlodipine. Hydralazine as needed ordered. Trend blood pressures. SHONA Creatinine on presentation was 1.41. Review of previous labs shows creatinine baseline of less than 1. Likely cardiorenal syndrome. IV Lasix as above. Trend. Elevated troponin Initial troponin 144. Trended, flat. Likely secondary to demand ischemia from acute on chronic heart failure. DVT Prophylaxis: Subcutaneous Lovenox ordered. Time spent in the patient's overall evaluation,decision-making process, review of diagnostic data, adjustment of management, discussion with other providers, nursing nursing and ancillary staff involved in patient's care documentation, 70minutes. Charges/Coding Visit Charges Inpatient E&M: 09756 Init Hosp L3 01/08/23 1013 <Electronically signed by Cesar Henriquez MD> Cosigner Signature (if applicable): CC: Dr. Cesar Henriquez MD; Dr. Sophie Craft MD~ Signed [facility] Work Phone: 1(760) 733-512909-14-2023 Progress note Author Roosevelt Kruse [facility] January 08, 2023 8:48am Note Date/Time January 08, 2023 8:48am [facility] Medical Records Department [address] [place] [address] Progress Note - Hospitalist 01/08/23 0843 MR#: [id number] Acct: [id number] Name: LORRI COUGHLIN Rep #:[id number] : 1960 62 From: Roosevelt ortega MD PCP: Dr. Sophie Craft MD Status:ADM IN Location: [place] [address] Subjective Subjective Not requiring any oxygen, though he does not feel well. He is still coughing upmucus Objective Data Objective Data Vital Signs: Vital Signs Temp Pulse Resp BP Pulse Ox O2 Del Method 98.6 F 54 L 19 H 128/80 H 95 Room Air 01/08/23 08:20 01/08/23 08:20 01/08/23 08:20 01/08/23 08:20 01/08/23 08:20 01/08/23 08:20 Oxygen Delivery Method Room Air Weight: 154 lb 1 oz Body Mass Index (BMI) 22.7 Lab / Micro Data 01/08/23 05:38 01/08/23 05:38 Labs: Laboratory Results - last 24 hr 01/07/23 20:13: WBC 17.9 H, RBC 3.51 L, Hgb 12.0 L, Hct 33.8 L, MCV 96.3 H, MCH 34.2 H, MCHC 35.5, RDW Std Deviation 46.8 H, RDW Coeff of Marcos 13.4, Plt Count 230, MPV 9.5, Immature Gran % (Auto) 0.600, Neut % (Auto) 75.3 H, Lymph % (Auto)13.7 L, [place] % (Auto) 10.1 H, Eos % (Auto) 0.1, Baso % (Auto) 0.2, Absolute Neuts (auto) 13.5 H, Absolute Lymphs (auto) 2.45, Nucleated RBC % 0, Differential Comment SCANNED, Diff Path Review August, Sodium 137, Potassium 3.7, Chloride 103, Carbon Dioxide 28.0, Anion Gap 6, BUN 21 H, Creatinine 1.41 H, Estim Creat Clear Calc 53.00, Est GFR (MDRD) Af Amer 65, Est GFR (MDRD) Non-Af54 L, BUN/Creatinine Ratio 14.9, Glucose 105, Calcium 8.7, Troponin I High Sens 127 H*, B-Natriuretic Peptide 1010.2 H 01/07/23 23:55: Troponin I High Sens 144 H* 01/08/23 01:45: Troponin I High Sens 150 H* 01/08/23 05:38: WBC 12.2 H, RBC 3.29 L, Hgb 11.2 L, Hct 31.4 L, MCV 95.4 H, MCH 34.0 H, MCHC 35.7, RDW Std Deviation 46.5 H, RDW Coeff of Marcso 13.3, Plt Count 220, MPV 9.4, Immature Gran % (Auto) 0.500, Neut % (Auto) 67.0, Lymph % (Auto) 17.8 L, [place] % (Auto) 14.4 H, Eos % (Auto) 0.1, Baso % (Auto) 0.2, Absolute Neuts (auto) 8.2 H, Absolute Lymphs (auto) 2.18, Nucleated RBC % 0, DifferentialComment SCANNED, Diff Path Review August foll, Sodium 135 L, Potassium 2.8 L, Chloride 100, Carbon Dioxide 29.0, Anion Gap 6, BUN 20 H, Creatinine 1.26, EstimCreat Clear Calc 59.31, Est GFR (MDRD) Af Amer 74, Est GFR (MDRD) Non-Af 61, BUN/Creatinine Ratio 15.9, Glucose 92, Calcium 8.4 L, Troponin I High Sens 143 H*, Triglycerides 80, Cholesterol 110, LDL Cholesterol 56, VLDL Cholesterol 16, HDL Cholesterol 38 L Radiography Diagnostic Testing: Radiology Impression Chest X-Ray 01/07/23 20:25 IMPRESSION: Mild interstitial edema or infiltrates. Small pleural effusions. Electronically Signed: Giorgio Tamayo MD at 20:43 EDT Reading Location ID and State: [address] [place] [address] , Service support , Physical Exam Narrative General: Alert, Oriented x3, Cooperative, No apparent distress HEENT: Atraumatic, PERRLA, EOMI, Normocephalic Oral: Moist Mucosa Neck: Supple, No JVD Lungs: Diminished, Normal air movement, No rhonchi, No wheeze, No rales Cardiovascular: Regular rate, Regular Rhythm, Normal S1, Normal S2, No murmurs Abdomen: Soft, Non Tender, Non-Distended, No Hepato-splenomegaly Extremities: No edema, Capillary Refill Less than 3 Seconds Skin: No rashes, No breakdown Musculoskeletal: No Tenderness to Palpation of Joints or Extremities Neurological: Cranial nerves II-XII grossly intact, Motor Exam 5/5 strength throughout, Sensory exam intact to light touch and pain Psych/Mental Status: Flat Assessment & Plan Assessment/Plan (1) Elevated troponin: (2) CHF (congestive heart failure): PLAN: Plan 1. Demand ischemia secondary to possible heart failure versus pneumonia/CAD status post stent/HTN/HLD ? We will obtain an echo, his last echo was on 10/30/2021 with an EF of 60% without being able to evaluate diastolic dysfunction ? Continue with IV Lasix ? Given his cough and his elevated white count on admission is 17 down to 12.2, will start on Levaquin and obtain a sputum culture ? Continue with aspirin, his stents were placed in 2019 and will monitor his blood pressures and make adjustments as necessary, he did have an elevated bloodpressure on admission that resolved very quickly with the addition of blood pressure medications ? Continue with Lipitor 2. Hypokalemia ? This is reduced and related to 0.8, will obtain a mag and Phos and replete as necessary DVT: Lovenox Charges/Coding Visit Charges Inpatient E&M: 64193 Subs Hosp L2 01/08/23 0848 <Electronically signed by Roosevelt Kruse MD> Cosigner Signature (if applicable): CC: ~ Signed [facility] Work Phone: 1(559) 799-507109-14-2023 Discharge summary Author Thomas Snell [facility] January 07, 2023 10:06pm Note Date/Time January 07, 2023 8:03pm [facility] Medical Records Department [address] [place] [address] Emergency Department Summary 01/07/23 MR#: [id number] Acct: [id number] Name: LORRI COUGHLIN Rep #:[id number] : 1960 62 From: Thomas Snell MD PCP: Dr. Sophie Craft MD Status:REG ER Location: ED HPI History of Present Illness Chief Complaint: Shortness of Breath Narrative Narrative: 62-year-old male past medical history of coronary artery disease with stenting, AAA that has also been stented, presents with 3 weeks of shortness of breath, and coughing up phlegm. He states that for the past 3 weeks he has been sick with bronchitis type symptoms. He is already been told by his primary care provider, Dr. Bailey, that he needs to quit smoking. He went to urgent care and [place] a few days ago on Thursday, where he states they started him on 2 antibiotics and steroids. He has been using his inhaler without relief andhe still feels short of breath. However he denies any chest pain, nausea, vomiting, or sweating. He states he does not take anything for his blood pressure because he never needed to but noticed yesterday that his blood pressure was elevated. He presents because of the shortness of breath that has had for 3 weeks. He states Mucinex has been helping him. 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) Home Medications aspirin 81 mg tablet,delayed release 81 mg PO DAILY@0800 HEALTH MAINTENANCE 10/30/21 [History Last Taken 10/30/21] atorvastatin 80 mg tablet 80 mg PO QHS #90 tabs 12/02/21 [Rx Last Taken Unknown] clopidogrel 75 mg tablet 75 mg PO DAILY #90 tabs 12/02/21 [Rx Last Taken Unknown] Allergy/AdvReac Type Severity Reaction Status Date / Time No Known Allergies Allergy Verified 01/07/23 19:20 Family History Father Colon cancer Surgical History History of coronary artery stent placement (03/22/20) Social History Smoking Status: Current every day smoker tobacco type: cigarettes Tobacco: How many years used: 40 alcohol intake: never substance use type: does not use what type of physical activity do you participate in: none ROS ROS ED ROS Narrative Constitutional: No fever, no chills. HEENT: No sore throat. No neck pain. No loss of vision. No rhinorrhea. Cardiovascular: No chest pain. No palpitations. No pedal edema. Respiratory: Occasionally productive cough, positive shortness of breath. Abdominal: No abdominal pain. No nausea. No vomiting. Genitourinary: No dysuria. No hematuria. Musculoskeletal: No myalgias. No arthralgias. Neurologic: No headaches. No dizziness. No lightheadedness. Skin: No rash. No change in color. Psychiatric: No depression. No anxiety. EXAM Physical Exam Const Vital Signs: 01/07/23 19:18 01/07/23 19:36 01/07/23 20:20 Temperature 97 F L Temperature Source Oral Pulse Rate 102 H Respiratory Rate 16 Respiratory Effort Normal Respiratory Depth Normal Respiratory Pattern Normal Blood Pressure 198/117 H Blood Pressure Mean 144 Pulse Ox 98 Oxygen Delivery Method Room Air Room Air 01/07/23 20:18 01/07/23 20:23 01/07/23 20:32 Temperature Temperature Source Pulse Rate 94 Respiratory Rate 93 H Respiratory Effort Respiratory Depth Respiratory Pattern Blood Pressure 168/114 H 174/95 H 158/92 H Blood Pressure Mean 132 121 114 Pulse Ox Oxygen Delivery Method MDM MDM MDM Narrative Medical decision making narrative: Comprehensive work-up was pursued. For his blood pressure of 198/117, he was administered hydralazine. I do feel chest x-ray lab work is indicated to help rule out pneumonia or other causes of his shortness of breath. Although pneumothorax is in the differential, his history and physical is not suggestive of that. Did review his prior records. His medication list does not list any antihypertensive but given his history of coronary artery disease, prior IL, TIA, AAA repair, I do find it questionable that he is not on any antihypertensives. EKG was obtained and interpreted by myself independently as normal sinus rhythm at 96 bpm without ectopy or acute ST changes. No STEMI. There is no significant change from an EKG dated October 30, 2021 with the exception of left ventricular hypertrophy by voltage criteria. I reviewed his laboratory work from today and he has an elevated white count of 17.9 with hemoglobin 12.0, hematocrit 33.8, platelet count normal at 230. BMP was obtained and he has normal sodium of 137, potassium normal at 3.7 with BUN elevated 21 and an acute kidney injury with a creatinine of 1.4, above his baseline. Glucose is normal at 105 with normal anion gap of 6. Of significance is slightly elevated troponin of 127, but this may be secondary to his acute kidney injury. While his blood pressure was elevated at 198/117 after 10 mg of hydralazine intravenously, he has resultant blood pressure of 158/92. Chest x-ray in 1 viewinterpreted by myself does show bilateral fluffy infiltrates consistent with interstitial edema more so than infectious process. He has already been taking antibiotics from the urgent care since Thursday. He is not febrile here. With the suspicion of acute onset of congestive heart failure, BNP was obtained and is elevated at 1010. He was administered Lasix 40 mg intravenously and 324 mg of aspirin. At this point in time, I do feel that he merits admission. Patientwas discussed with Dr. Henriquez for admission to the PCU. Patient is in stable condition. History & Record Review Discussion w/independent historian: Patient Additional record(s) reviewed:: Prior ED visit Lab Data Attestation: I reviewed the patient's lab results. Labs: Laboratory Results - last 24 hr 01/07/23 20:13 WBC 17.9 H RBC 3.51 L Hgb 12.0 L Hct 33.8 L MCV 96.3 H MCH 34.2 H MCHC 35.5 RDW Std Deviation 46.8 H RDW Coeff of Marcos 13.4 Plt Count 230 MPV 9.5 Immature Gran % (Auto) 0.600 Neut % (Auto) 75.3 H Lymph % (Auto) 13.7 L [place] % (Auto) 10.1 H Eos % (Auto) 0.1 Baso % (Auto) 0.2 Absolute Neuts (auto) 13.5 H Absolute Lymphs (auto) 2.45 Nucleated RBC % 0 Differential Comment SCANNED Diff Path Review August foll Sodium 137 Potassium 3.7 Chloride 103 Carbon Dioxide 28.0 Anion Gap 6 BUN 21 H Creatinine 1.41 H Estim Creat Clear Calc 53.00 Est GFR (MDRD) Af Amer 65 Est GFR (MDRD) Non-Af 54 L BUN/Creatinine Ratio 14.9 Glucose 105 Calcium 8.7 Troponin I High Sens 127 H* B-Natriuretic Peptide 1010.2 H Radiography Diagnostic Testing: Clinical Impression(s) from Imaging Studies Chest X-Ray 01/07/23 20:25 IMPRESSION: Mild interstitial edema or infiltrates. Small pleural effusions. Electronically Signed: Giorgio Tamayo MD at 20:43 EDT , Management Discussion w/another healthcare provider: Hospitalist Discharge Plan Dx/Rx/DC Orders Clinical Impression: Hypertensive urgency, Nicotine dependence, CHF (congestive heart failure), Elevated troponin Disposition Disposition: Acute Care Hospital [facility] What to do if you have Problems For any increased pain, shortness of breath, bleeding, nausea or vomiting, chestpain, or any unexpected problems, contact your Primary Care Provider. Call [facility] ([phone]) or report to the closest Emergency Room. Call 911 if necessary. 01/07/232205 <Electronically signed by Thomas Snell MD> Cosigner Signature (if applicable): CC: Dr. Sophie Craft MD ~ Signed [facility] Work Phone: 1(265) 374-669109-13-2023 Discharge summary Author Thomas Snell [facility] January 07, 2023 10:06pm Note Date/Time January 07, 2023 8:03pm [facility] Medical Records Department [address] [place] [address] Emergency Department Summary 01/07/23 MR#: [id number] Acct: [id number] Name: LORRI COUGHLIN Rep #:[id number] : 1960 62 From: Thomas Snell MD PCP: Dr. Sophie Craft MD Status:REG ER Location: ED HPI History of Present Illness Chief Complaint: Shortness of Breath Narrative Narrative: 62-year-old male past medical history of coronary artery disease with stenting, AAA that has also been stented, presents with 3 weeks of shortness of breath, and coughing up phlegm. He states that for the past 3 weeks he has been sick with bronchitis type symptoms. He is already been told by his primary care provider, Dr. Bailey, that he needs to quit smoking. He went to urgent care and [place] a few days ago on Thursday, where he states they started him on 2 antibiotics and steroids. He has been using his inhaler without relief andhe still feels short of breath. However he denies any chest pain, nausea, vomiting, or sweating. He states he does not take anything for his blood pressure because he never needed to but noticed yesterday that his blood pressure was elevated. He presents because of the shortness of breath that has had for 3 weeks. He states Mucinex has been helping him. 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) Home Medications aspirin 81 mg tablet,delayed release 81 mg PO DAILY@0800 [employer]CE 10/30/21 [History Last Taken 10/30/21] atorvastatin 80 mg tablet 80 mg PO QHS #90 tabs 12/02/21 [Rx Last Taken Unknown] clopidogrel 75 mg tablet 75 mg PO DAILY #90 tabs 12/02/21 [Rx Last Taken Unknown] Allergy/AdvReac Type Severity Reaction Status Date / Time No Known Allergies Allergy Verified 01/07/23 19:20 Family History Father Colon cancer Surgical History History of coronary artery stent placement (03/22/20) Social History Smoking Status: Current every day smoker tobacco type: cigarettes Tobacco: How many years used: 40 alcohol intake: never substance use type: does not use what type of physical activity do you participate in: none ROS ROS ED ROS Narrative Constitutional: No fever, no chills. HEENT: No sore throat. No neck pain. No loss of vision. No rhinorrhea. Cardiovascular: No chest pain. No palpitations. No pedal edema. Respiratory: Occasionally productive cough, positive shortness of breath. Abdominal: No abdominal pain. No nausea. No vomiting. Genitourinary: No dysuria. No hematuria. Musculoskeletal: No myalgias. No arthralgias. Neurologic: No headaches. No dizziness. No lightheadedness. Skin: No rash. No change in color. Psychiatric: No depression. No anxiety. EXAM Physical Exam Const Vital Signs: 01/07/23 19:18 01/07/23 19:36 01/07/23 20:20 Temperature 97 F L Temperature Source Oral Pulse Rate 102 H Respiratory Rate 16 Respiratory Effort Normal Respiratory Depth Normal Respiratory Pattern Normal Blood Pressure 198/117 H Blood Pressure Mean 144 Pulse Ox 98 Oxygen Delivery Method Room Air Room Air 01/07/23 20:18 01/07/23 20:23 01/07/23 20:32 Temperature Temperature Source Pulse Rate 94 Respiratory Rate 93 H Respiratory Effort Respiratory Depth Respiratory Pattern Blood Pressure 168/114 H 174/95 H 158/92 H Blood Pressure Mean 132 121 114 Pulse Ox Oxygen Delivery Method MDM MDM MDM Narrative Medical decision making narrative: Comprehensive work-up was pursued. For his blood pressure of 198/117, he was administered hydralazine. I do feel chest x-ray lab work is indicated to help rule out pneumonia or other causes of his shortness of breath. Although pneumothorax is in the differential, his history and physical is not suggestive of that. Did review his prior records. His medication list does not list any antihypertensive but given his history of coronary artery disease, prior IL, TIA, AAA repair, I do find it questionable that he is not on any antihypertensives. EKG was obtained and interpreted by myself independently as normal sinus rhythm at 96 bpm without ectopy or acute ST changes. No STEMI. There is no significant change from an EKG dated October 30, 2021 with the exception of left ventricular hypertrophy by voltage criteria. I reviewed his laboratory work from today and he has an elevated white count of 17.9 with hemoglobin 12.0, hematocrit 33.8, platelet count normal at 230. BMP was obtained and he has normal sodium of 137, potassium normal at 3.7 with BUN elevated 21 and an acute kidney injury with a creatinine of 1.4, above his baseline. Glucose is normal at 105 with normal anion gap of 6. Of significance is slightly elevated troponin of 127, but this may be secondary to his acute kidney injury. While his blood pressure was elevated at 198/117 after 10 mg of hydralazine intravenously, he has resultant blood pressure of 158/92. Chest x-ray in 1 viewinterpreted by myself does show bilateral fluffy infiltrates consistent with interstitial edema more so than infectious process. He has already been taking antibiotics from the urgent care since Thursday. He is not febrile here. With the suspicion of acute onset of congestive heart failure, BNP was obtained and is elevated at 1010. He was administered Lasix 40 mg intravenously and 324 mg of aspirin. At this point in time, I do feel that he merits admission. Patientwas discussed with Dr. Henriquez for admission to the PCU. Patient is in stable condition. History & Record Review Discussion w/independent historian: Patient Additional record(s) reviewed:: Prior ED visit Lab Data Attestation: I reviewed the patient's lab results. Labs: Laboratory Results - last 24 hr 01/07/23 20:13 WBC 17.9 H RBC 3.51 L Hgb 12.0 L Hct 33.8 L MCV 96.3 H MCH 34.2 H MCHC 35.5 RDW Std Deviation 46.8 H RDW Coeff of Marcos 13.4 Plt Count 230 MPV 9.5 Immature Gran % (Auto) 0.600 Neut % (Auto) 75.3 H Lymph % (Auto) 13.7 L [place] % (Auto) 10.1 H Eos % (Auto) 0.1 Baso % (Auto) 0.2 Absolute Neuts (auto) 13.5 H Absolute Lymphs (auto) 2.45 Nucleated RBC % 0 Differential Comment SCANNED Diff Path Review May foll Sodium 137 Potassium 3.7 Chloride 103 Carbon Dioxide 28.0 Anion Gap 6 BUN 21 H Creatinine 1.41 H Estim Creat Clear Calc 53.00 Est GFR (MDRD) Af Amer 65 Est GFR (MDRD) Non-Af 54 L BUN/Creatinine Ratio 14.9 Glucose 105 Calcium 8.7 Troponin I High Sens 127 H* B-Natriuretic Peptide 1010.2 H Radiography Diagnostic Testing: Clinical Impression(s) from Imaging Studies Chest X-Ray 01/07/23 20:25 IMPRESSION: Mild interstitial edema or infiltrates. Small pleural effusions. Electronically Signed: Giorgio Tamayo MD at 20:43 EDT Reading Location ID and State: [address] [place] [address] , Service support , Management Discussion w/another healthcare provider: Hospitalist Discharge Plan Dx/Rx/DC Orders Clinical Impression: Hypertensive urgency, Nicotine dependence, CHF (congestive heart failure), Elevated troponin Disposition Disposition: Acute Care Hospital [facility] What to do if you have Problems For any increased pain, shortness of breath, bleeding, nausea or vomiting, chestpain, or any unexpected problems, contact your Primary Care Provider. Call [facility] ([phone]) or report to the closest Emergency Room. Call 911 if necessary. 01/07/232205 <Electronically signed by Thomas Snell MD> Cosigner Signature (if applicable): CC: Dr. Sophie Craft MD ~ Signed [facility] Work Phone: [phone] 120-734409-13-2023 NoteHNO ID: [id number] Author: Chris Haywood MD Service: ? Author Type: Physician Type: Progress Notes Filed: 01/07/2023 7:20 PM Note Text: Patient presents with: Shortness of Breath: X3 weeks, treated 01/04 for same HPI: Feeling sick with shortness of breath and cough for 3 weeks. Diagnosed with lower respiratory tract infection at [facility] 01/04/23. Although he has not been coughing as much, he has significantly worse shortness of breath today and xiphoid area pain with coughing. Positive symptoms: Cough, red flecked phlegm, Shortness of breath, Wheezing, Chest tightness, Chest pain, mild Sore throat, Sinus pressure, Nasal Congestion, Rhinorrhea, Post nasal drainage, epistaxis, traveled to [place] for family reunion over the weekend, Negative symptoms: Body Aches, Headache, Nausea, Vomiting, Diarrhea, OTC: prescribed prednisone, albuterol, and zpak 3 days ago Denies history of hypertension or asthma. Past Medical History: Diagnosis Date AAA (abdominal aortic aneurysm) Coronary artery disease 2019 2x stents, Dr. Eulalio Gutierrez at [facility] TIA (transient ischemic attack) Past Surgical History: Past Surgical History: Procedure Laterality Date CORONARY STENT PLACEMENT 02/2020 x2 IR ANGIOGRAM ENDOVASCULAR AORTIC REPAIR 05/20/2022 OPEN FEMORAL ARTERY EXPOSURE FOR DELIVERY OF ENDOVASCULAR PROSTHESIS OTHER SURGICAL HISTORY Bilateral 05/20/2022 Exploration groin, evacuation of hematoma WISDOM TOOTH EXTRACTION MEDICATIONS: Current Outpatient Medications Medication Sig aspirin, enteric coated (ASPIRIN, ENTERIC COATED) 81 mg EC tablet Take 81 mg by mouth. atorvastatin (LIPITOR) 80 mg tablet Take 80 mg by mouth. clopidogrel (PLAVIX) 75 mg tablet Take 75 mg by mouth. albuterol HFA (PROAIR HFA) 90 mcg/actuation inhaler Inhale 2 Puffs as instructed every 6 hours as needed for wheezing/shortness of breath. predniSONE (DELTASONE) 20 mg tablet Take 1 tablet by mouth twice daily for 5 days. azithromycin (ZITHROMAX Z-MEERA) 250 mg tablet 2 tablets by mouth first day then 1 tablet the next 4 days No current facility-administered medications for this visit. ALLERGIES: ALLERGIES No Known Allergies VITALS: BP (!) 173/126 Pulse 111 Temp 37.6 ?C (99.6 ?F) Resp 24 Wt 70.5 kg (155 lb 6.4 oz) SpO2 94% Date: BP: 01/07/2023 173/126 01/04/2023 161/78 PHYSICAL EXAM: GEN: pleasant, alert, mildly ill appearing HEENT: PERRL, EOMI, conjunctiva clear Ears: TMs without erythema, bulge, or effusion Sinuses: non-tender frontal sinus, non-tender maxillary sinuses Throat: moist mucous membranes, mild erythema, no exudate Neck: supple, no thyromegaly, left anterior chain lymphadenopathy at the level of the thyroid cartilage. HEART: regular rate, fast rhythm, no murmurs LUNGS: bilateral coarse wheezes and crackles, mild increased WOB CHEST: no reproducible chest wall pain with palpation of lower anterior chest or mid epigastric abdomen. ASSESSMENT/PLAN: 1. Subacute cough - ICD9: 786.2, ICD10: R05.2 (primary diagnosis) 2. Hemoptysis - ICD9: 786.30, ICD10: R04.2 3. SOB (shortness of breath) - ICD9: 786.05, ICD10: R06.02 4. Chest pain on breathing - ICD9: 786.52, ICD10: R07.1 5. Elevated blood pressure reading without diagnosis of hypertension - ICD9: 796.2, ICD10: R03.0 6. History of aortic aneurysm - ICD9: V12.59, ICD10: Z86.79 Suspected pneumonia. No COVID test performed during his 3 weeks of illness. Elevated blood pressure, tachypnea, tachycardia, and chest pain should have emergency room evaluation. He will go to [facility] ER. Report called. Chris Haywood, [facility]09-13-2023 History of Present illness Narrative* Chris Haywood MD - 01/07/2023 6:34 PM EDT Patient presents with: Shortness of Breath: X3 weeks, treated 01/04 for same HPI: Feeling sick with shortness of breath and cough for 3 weeks. Diagnosed with lower respiratory tractinfection at [facility] 01/04/23. Although he has not been coughing as much, he has significantly worse shortness of breath today and xiphoid area pain with coughing. Positive symptoms: Cough, red flecked phlegm, Shortness of breath, Wheezing, Chest tightness, Chestpain, mild Sore throat, Sinus pressure, Nasal Congestion, Rhinorrhea, Post nasal drainage, epistaxis, traveled to [place] for family reunion over the weekend, Negative symptoms: Body Aches, Headache, Nausea, Vomiting, Diarrhea, OTC: prescribed prednisone, albuterol, and zpak 3 days ago Denies history of hypertension or asthma. Past Medical History: Diagnosis Date AAA (abdominal aortic aneurysm) Coronary artery disease 2019 2x stents, Dr. Eulalio Gutierrez at [facility] TIA (transient ischemic attack) Past Surgical History: Past Surgical History: Procedure Laterality Date CORONARY STENT PLACEMENT 02/2020 x2 IR ANGIOGRAM ENDOVASCULAR AORTIC REPAIR 05/20/2022 OPEN FEMORAL ARTERY EXPOSURE FOR DELIVERY OF ENDOVASCULAR PROSTHESIS OTHER SURGICAL HISTORY Bilateral 05/20/2022 Exploration groin, evacuation of hematoma WISDOM TOOTH EXTRACTION MEDICATIONS: Current Outpatient Medications Medication Sig aspirin, enteric coated (ASPIRIN, ENTERIC COATED) 81 mg EC tablet Take 81 mg by mouth. atorvastatin (LIPITOR) 80 mg tablet Take 80 mg by mouth. clopidogrel (PLAVIX) 75 mg tablet Take 75 mg by mouth. albuterol HFA (PROAIR HFA) 90 mcg/actuation inhaler Inhale 2 Puffs as instructed every 6 hours as needed for wheezing/shortness of breath. predniSONE (DELTASONE) 20 mg tablet Take 1 tablet by mouth twice daily for 5 days. azithromycin (ZITHROMAX Z-MEERA) 250 mg tablet 2 tablets by mouth first day then 1 tablet the next 4 days No current facility-administered medications for this visit. ALLERGIES: ALLERGIES No Known Allergies VITALS: BP (!) 173/126 Pulse 111 Temp 37.6 C (99.6 F) Resp 24 Wt 70.5 kg (155 lb 6.4 oz) SpO2 94% Date: BP: 01/07/2023 173/126 01/04/2023 161/78 PHYSICAL EXAM: GEN: pleasant, alert, mildly ill appearing HEENT: PERRL, EOMI, conjunctiva clear Ears: TMs without erythema, bulge, or effusion Sinuses: non-tender frontal sinus, non-tender maxillary sinuses Throat: moist mucous membranes, mild erythema, no exudate Neck: supple, no thyromegaly, left anterior chain lymphadenopathy at the level of the thyroid cartilage. HEART: regular rate, fast rhythm, no murmurs LUNGS: bilateral coarse wheezes and crackles, mild increased WOB CHEST: no reproducible chest wall pain with palpation of lower anterior chest or mid epigastric abdomen. ASSESSMENT/PLAN: 1. Subacute cough - ICD9: 786.2, ICD10: R05.2 (primary diagnosis) 2. Hemoptysis - ICD9: 786.30, ICD10: R04.2 3. SOB (shortness of breath) - ICD9: 786.05, ICD10: R06.02 4. Chest pain on breathing - ICD9: 786.52, ICD10: R07.1 5. Elevated blood pressure reading without diagnosis of hypertension - ICD9: 796.2, ICD10: R03.0 6. History of aortic aneurysm - ICD9: V12.59, ICD10: Z86.79 Suspected pneumonia. No COVID test performed during his 3 weeks of illness. Elevated blood pressure, tachypnea, tachycardia, and chest pain should have emergency room evaluation. He will go to [facility] ER. Report called. Chris Haywood MD [facility] NoteHNO ID: [id number] Author: Yen Reynoso APRN.[employer] Service: ? Author Type: Nurse Practitioner Type: Progress Notes Filed: 01/04/2023 2:26 PM Note Text: January 04, 2023 Subjective Chief Complaint: Cough (Symptoms started 3 weeks ago. Mucinex/Robitussin.) and Shortness of Breath HPI: Regan Coughlin is a 62 year old male who presents today for complaints of cough, congestion, runny nose and shortness of breath. Pt states symptoms started 3 weeks ago with nasal congestion and cough. Pt reports cough is keeping him from sleeping well and he is feeling short of breath. Pt denies any chest pain and reports he does smoke occasionally. Pt has taken Mucinex with some relief, states he is coughing up brown phlegm. PAST MEDICAL HISTORY Diagnosis Date H/O heart artery stent Mixed hyperlipidemia PAST SURGICAL HISTORY Procedure Laterality Date HEART SURGERY HX History reviewed. No pertinent family history. Social History Tobacco Use Smoking status: Every Day Packs/day: .5 Types: Cigarettes Smokeless tobacco: Never Vaping Use Vaping Use: Never used Substance Use Topics Alcohol use: Not Currently Drug use: Not Currently ALLERGIES No Known Allergies There is no immunization history on file for this patient. Current Medications: aspirin, enteric coated (ASPIRIN, ENTERIC COATED) 81 mg EC tablet Take 81 mg by mouth. atorvastatin (LIPITOR) 80 mg tablet Take 80 mg by mouth. clopidogrel (PLAVIX) 75 mg tablet Take 75 mg by mouth. Review of Systems Constitutional: Positive for malaise/fatigue. Negative for chills and fever. HENT: Positive for congestion. Negative for ear pain and sore throat. Respiratory: Positive for cough, sputum production and shortness of breath. Cardiovascular: Negative for chest pain and palpitations. Gastrointestinal: Negative for abdominal pain, diarrhea, nausea and vomiting. Skin: Negative for rash. Neurological: Positive for headaches. Negative for dizziness. Objective BP 188/98 Pulse 72 Temp 98.1 Resp 18 Wt 151 lb 8 oz (68.7kg) SpO2 98% Physical Exam Vitals and nursing note reviewed. Constitutional: General: He is not in acute distress. Appearance: Normal appearance. He is not ill-appearing or toxic-appearing. HENT: Head: Normocephalic and atraumatic. Ears: Comments: Tms cloudy Nose: Congestion present. Mouth/Throat: Mouth: Mucous membranes are moist. Pharynx: Oropharynx is clear. Posterior oropharyngeal erythema present. No oropharyngeal exudate. Cardiovascular: Rate and Rhythm: Normal rate and regular rhythm. Heart sounds: Normal heart sounds. Pulmonary: Effort: Pulmonary effort is normal. Comments: Lungs diminished with faint exp wheezing and scattered rhonchi. Musculoskeletal: Cervical back: Normal range of motion and neck supple. No tenderness. Lymphadenopathy: Cervical: No cervical adenopathy. Skin: General: Skin is warm and dry. Coloration: Skin is not pale. Findings: No erythema or rash. Neurological: General: No focal deficit present. Mental Status: He is alert and oriented to person, place, and time. Psychiatric: Mood and Affect: Mood normal. Behavior: Behavior normal. Thought Content: Thought content normal. ASSESSMENT/PLAN: 1. Lower respiratory infection - ICD9: 519.8, ICD10: J22 (primary diagnosis) 2. Subacute cough - ICD9: 786.2, ICD10: R05.2 3. SOB (shortness of breath) - ICD9: 786.05, ICD10: R06.02 4. Elevated blood pressure reading without diagnosis of hypertension - ICD9: 796.2, ICD10: R03.0 At this time you are being treated for a lower respiratory infection. Albuterol has been prescribed for wheezing and shortness of breath. Take prednisone and antibiotic with food and separate them by a few hours. Cough and deep breathe and please stop smoking. I recommend taking Guaifenesin, Mucinex, for congestion over the counter and increase fluids while taking this medication. Monitor your symptoms including temperature if you are feeling fevered or chilled and I recommend Tylenol or Ibuprofen for fever or pain if needed. Your blood pressure today was 161/78 on recheck. Monitor BP and follow-up with PCP if BP remains over 130/80 Seek immediate care in the ER if you develop any difficulty breathing or swallowing. Megan Mahmood APRN.MICHAEL The above reflects my independent exam and review of the patient's medical record. I saw and examined the patient myself personally. Parts of the HPI, ROS, exam, impression/plan, and testing results may have been copied from the current or previous clinical notes and remain pertinent to today's visit. Current changes have been made and documented today. Other parts or data may have been deleted if not relevant for today. Plan as outlined above.[facility]09-10-2023 Instructions* Patient Instructions* Yen Reynoso APRN.[employer] - 01/04/2023 2:18 PM EDT At this time you are being treated for a lower respiratory infection. Albuterol has been prescribed for wheezing and shortness of breath. Take prednisone and antibiotic with food and separate them by a few hours. Cough and deep breathe and please stop smoking. I recommend taking Guaifenesin, Mucinex, for congestion over the counter and increase fluids while taking this medication. Monitor your symptoms including temperature if you are feeling fevered or chilled and I recommend Tylenol or Ibuprofen for fever or pain if needed. Your blood pressure today was 161/78 on recheck. Monitor BP and follow-up with PCP if BP remains over 130/80 Seek immediate care in the ER if you develop any difficulty breathing or swallowing. documented in this [facility] History of Present illness Narrative* Yen Reynoso APRN.MICHAEL - 01/04/2023 2:14 PM EDT January 04, 2023 Subjective Chief Complaint: Cough (Symptoms started 3 weeks ago. Mucinex/Robitussin.) and Shortness of Breath HPI: Regan Coughlin is a 62 year old male who presents today for complaints of cough, congestion, runny nose and shortness of breath. Pt states symptoms started 3 weeks ago with nasal congestion and cough. Pt reports cough is keeping him from sleeping well and he is feeling short of breath. Pt denies any chest pain and reports he does smoke occasionally. Pt has taken Mucinex with some relief, states he is coughing up brown phlegm. PAST MEDICAL HISTORY Diagnosis Date H/O heart artery stent Mixed hyperlipidemia PAST SURGICAL HISTORY Procedure Laterality Date HEART SURGERY HX History reviewed. No pertinent family history. Social History Tobacco Use Smoking status: Every Day Packs/day: .5 Types: Cigarettes Smokeless tobacco: Never Vaping Use Vaping Use: Never used Substance Use Topics Alcohol use: Not Currently Drug use: Not Currently ALLERGIES No Known Allergies There is no immunization history on file for this patient. Current Medications: aspirin, enteric coated (ASPIRIN, ENTERIC COATED) 81 mg EC tablet Take 81 mg by mouth. atorvastatin (LIPITOR) 80 mg tablet Take 80 mg by mouth. clopidogrel (PLAVIX) 75 mg tablet Take 75 mg by mouth. Review of Systems Constitutional: Positive for malaise/fatigue. Negative for chills and fever. HENT: Positive for congestion. Negative for ear pain and sore throat. Respiratory: Positive for cough, sputum production and shortness of breath. Cardiovascular: Negative for chest pain and palpitations. Gastrointestinal: Negative for abdominal pain, diarrhea, nausea and vomiting. Skin: Negative for rash. Neurological: Positive for headaches. Negative for dizziness. Objective BP 188/98 Pulse 72 Temp 98.1 Resp 18 Wt 151 lb 8 oz (68.7kg) SpO2 98% Physical Exam Vitals and nursing note reviewed. Constitutional: General: He is not in acute distress. Appearance: Normal appearance. He is not ill-appearing or toxic-appearing. HENT: Head: Normocephalic and atraumatic. Ears: Comments: Tms cloudy Nose: Congestion present. Mouth/Throat: Mouth: Mucous membranes are moist. Pharynx: Oropharynx is clear. Posterior oropharyngeal erythema present. No oropharyngeal exudate. Cardiovascular: Rate and Rhythm: Normal rate and regular rhythm. Heart sounds: Normal heart sounds. Pulmonary: Effort: Pulmonary effort is normal. Comments: Lungs diminished with faint exp wheezing and scattered rhonchi. Musculoskeletal: Cervical back: Normal range of motion and neck supple. No tenderness. Lymphadenopathy: Cervical: No cervical adenopathy. Skin: General: Skin is warm and dry. Coloration: Skin is not pale. Findings: No erythema or rash. Neurological: General: No focal deficit present. Mental Status: He is alert and oriented to person, place, and time. Psychiatric: Mood and Affect: Mood normal. Behavior: Behavior normal. Thought Content: Thought content normal. ASSESSMENT/PLAN: 1. Lower respiratory infection - ICD9: 519.8, ICD10: J22 (primary diagnosis) 2. Subacute cough - ICD9: 786.2, ICD10: R05.2 3. SOB (shortness of breath) - ICD9: 786.05, ICD10: R06.02 4. Elevated blood pressure reading without diagnosis of hypertension - ICD9: 796.2, ICD10: R03.0 At this time you are being treated for a lower respiratory infection. Albuterol has been prescribed for wheezing and shortness of breath. Take prednisone and antibiotic with food and separate them by a few hours. Cough and deep breathe and please stop smoking. I recommend taking Guaifenesin, Mucinex, for congestion over the counter and increase fluids while taking this medication. Monitor your symptoms including temperature if you are feeling fevered or chilled and I recommend Tylenol or Ibuprofen for fever or pain if needed. Your blood pressure today was 161/78 on recheck. Monitor BP and follow-up with PCP if BP remains over 130/80 Seek immediate care in the ER if you develop any difficulty breathing or swallowing. Megan Mahmood APRN.[employer] The above reflects my independent exam and review of the patient's medical record. I saw and examined the patient myself personally. Parts of the HPI, ROS, exam, impression/plan, and testing results may have been copied from the current or previous clinical notes and remain pertinent to today's visit. Current changes have been made and documented today. Other parts or data may have been deleted if not relevant for today. Plan as outlined above. documented in this encounterSelect [facility]05-18-2023 NotePatient was seen today via Telehealth by agreement and consent in light of the current COVID-19 pandemic. I used the following Telehealth technology: Audio capability only. Total length of call 15 minutes. The patient was offered and advised video for a more comprehensive evaluation, but the patient declined or was unable to use video. Patient location: Home. This patient encounter is appropriate and reasonable under the circumstances given the patient's particular presentation at this time. The patient has been advised of the potential risks and limitations of this mode of treatment (including but not limited to the absence of in-person examination) and has agreed to be treated in a remote fashion in spite of them. Any and all of the patient's/patient's family's questions on this issue have been answered and I have made no promises or guarantees to the patient. The patient has also been advised to contact this office for worsening conditions or problems, and seek emergency medical treatment and/or call 911 if the patient deems either necessary. The patient stated that they are currently in the [facility]. If the patient is a minor, permission has been obtained by the parent or guardian for the patient to receive medical care at this visit. Brenna Wright MD 03/05/2022 at 9:48 AM Telemedicine visit PATIENT NAME: Regan Coughlin DATE OF : 1960 TODAY'S DATE: 09/11/22 CHIEF COMPLAINT hematuria Their identity was verified by patient Those on the call: patient Subjective: This patient is a 62 y.o. male who presents for telehealth visit regarding gross hematuria. Quality: hematuria Location: unknown Severity: mild Timing: acute Duration: while in hospital Context: ct noncontrast did show tubular stasis of bilateral kidneys Modifying factors cystoscopy WNL and detect CX low risk. Associated signs and symptoms: hemturia resolved. No flank pain today Review of Systems: Review of Systems Constitutional: Negative for activity change, diaphoresis and fatigue. Respiratory: Negative for apnea. Cardiovascular: Negative for chest pain. Gastrointestinal: Negative for abdominal distention and abdominal pain. Genitourinary: Negative for decreased urine volume, difficulty urinating, flank pain, frequency, genital sores, hematuria and urgency. Musculoskeletal: Negative for arthralgias and back pain. Past Medical History: Past Medical History: Diagnosis Date AAA (abdominal aortic aneurysm) Coronary artery disease 2019 2x stents, Dr. Eulalio Gutierrez at [facility] TIA (transient ischemic attack) Past Surgical History: Past Surgical History: Procedure Laterality Date CORONARY STENT PLACEMENT 02/2020 x2 IR ANGIOGRAM ENDOVASCULAR AORTIC REPAIR 05/20/2022 OPEN FEMORAL ARTERY EXPOSURE FOR DELIVERY OF ENDOVASCULAR PROSTHESIS OTHER SURGICAL HISTORY Bilateral 05/20/2022 Exploration groin, evacuation of hematoma WISDOM TOOTH EXTRACTION Medications Current Outpatient Medications on File Prior to Visit Medication Sig Dispense Refill aspirin 81 MG EC tablet Take 81 mg by mouth daily. atorvastatin (Lipitor) 80 MG tablet Take 80 mg by mouth Nightly. clopidogrel (Plavix) 75 MG tablet Take 75 mg by mouth daily. No current facility-administered medications on file prior to visit. Labs: No results found for: PSAFREE, PSAFREEPCT No results for input(s): PSAFREE, PSAFREEPCT in the last 72 hours. No results found for: TESTOSTERONE Lab Results No results found for: LABURIN Radiology Review: none Patient was seen today via Telehealth by agreement and consent in light of the current COVID-19 pandemic. I used the following Telehealth technology: audio This patient encounter is appropriate and reasonable under the circumstances given the patient's particular presentation at this time. The patient has been advised of the potential risks and limitations of this mode of treatment (including but not limited to the absence of in-person examination) and has agreed to be treated in a remote fashion in spite of them. Any and all of the patient's/patient's family's questions on this issue have been answered and I have made no promises or guarantees to the patient. The patient has also been advised to contact this office for worsening conditions or problems, and seek emergency medical treatment and/or call 911 if the patient deems either necessary. Impression/Plan Diagnoses and all orders for this visit: Renal lesion Gross hematuria Detect CX mildly elevated, to briggs zone Cytoscopy previously [facility] [place], there are no results to review today Will call them to obtain results, call patient when they come in with these The patient verbalizes understanding of the plan of care. Brenna Wright MD 03/05/22 9:48 [facility]05-03-2023 Telephone encounter Note* Telephone Encounter - Tequila Morrow - 08/27/2022 1:27 PM EDT Pt called and left VM. No other information given. [facility] [id number] Miscellaneous Notes* Telephone Encounter - Tequila Morrow - 08/27/2022 1:27 PM EDT Pt called and left VM. No other information given. * Telephone Encounter - Zena Chu - 08/27/2022 11:42 AM EDT Attempted to call patient, phone call was disconnected several times. Please advised patient his telephone visit with Dr Wright has been rescheduled due to not having any imaging from his [place]. [place] patient to drop off the disc prior to his next appt on 09/11/22. documented in this [facility]05-03-2023 Telephone encounter Note* Telephone Encounter - Zena Chu - 08/27/2022 11:42 AM EDT Attempted to call patient, phone call was disconnected several times. Please advised patient his telephone visit with Dr Wright has been rescheduled due to not having any imaging from his [place]. [place] patient to drop off the disc prior to his next appt on 09/11/22. [place] [id number] Telephone encounter Note* Telephone Encounter - Isabela Goldberg RN - 08/20/2022 2:29 PM EDT Left Vm for pt to return call to go over results and informed to keep appt with Dr Wright. [place] [id number] Miscellaneous Notes* Telephone Encounter - Isabela Goldberg RN - 08/20/2022 2:29 PM EDT Left Vm for pt to return call to go over results and informed to keep appt with Dr Wright. * Telephone Encounter - Svetlana Crawley LPN - 08/18/2022 8:18 AM EDT LVM for patient to call the office. * Telephone Encounter - Svetlana Crawley LPN - 08/18/2022 8:17 AM EDT ----- Message from MARISABEL Zamarripa NP sent at 08/15/2022 12:30 PM EDT ----- Please notify the patient the bladder cx revealed that there is low probability bladder cancer. I recommend you still keep your scheduled follow up with Dr. Wright. Thank you. documented in this encounterSGenesis [id number] Telephone encounter Note* Telephone Encounter - Svetlana Crawley LPN - 08/18/2022 8:18 AM EDT LVM for patient to call the office. [address] [id number] Telephone encounter Note* Telephone Encounter - Svetlana Crawley LPN - 08/18/2022 8:17 AM EDT ----- Message from MARISABEL Zamarripa NP sent at 08/15/2022 12:30 PM EDT ----- Please notify the patient the bladder cx revealed that there is low probability bladder cancer. I recommend you still keep your scheduled follow up with Dr. Wright. Thank you. [facility] [id number] Note* Addendum Note - Priscila Mckeon - 08/14/2022 8:34 AM EDTAddended by: PRISCILA MCKEON on: 08/14/2022 08:34 AM Modules accepted: Orders [facility] [id number] Miscellaneous Notes* Addendum Note - Priscila Mckeon - 08/14/2022 8:34 AM EDTAddended by: PRISCILA MCKEON on: 08/14/2022 08:34 AM Modules accepted: Orders * Addendum Note - MARISABEL Ennis CNP - 08/12/2022 3:15 PM EDTAddended by: ISAEL BADILLO on: 08/12/2022 03:15 PM Modules accepted: Orders * Telephone Encounter - MARISABEL Ennis CNP - 08/12/2022 3:15 PM EDT Order placed. * Telephone Encounter - Nancy Kay MA - 08/12/2022 3:08 PM EDT Received a call from Lizzy with [facility] stating that they need a current Creatine, BUN, GFR results faxed to them so patient can have CT Urogram done. Patient was at their facility to have this done today however the most recent blood work results are from 04/2022. Advised Lizzy thatI would have [facility] orders. Patient agreed to come to [facility] first thing tomorrow morning to have blood work drawn. Patient is rescheduled for CT on 08/14 @ 1pm. Results need to be faxed to Lizzy . * Telephone Encounter - Aicha Lopez RN - 08/05/2022 1:47 PM EDT Kareen, the staff educator for [facility] [place], left a VM regarding [facility]ing the [facility]'s CT order [facility] [place]. Authorization number given: [id number]. The fax number for the order is [phone]. Kareen states if you need to contact her regarding this order she can be reached at [phone] and reference case #[id number]. Call placed to Kareen to verify the imaging order needed and fax number. Fax number confirmed. CT Urogram order faxed to [facility]. Will need to keep current [facility]. documented in this [place] [id number] Note* Addendum Note - MARISABEL Ennis CNP - 08/12/2022 3:15 PM EDTAddended by: ISAEL BADILLO on: 08/12/2022 03:15 PM Modules accepted: Orders [facility] Phone: [phone]) 731-686104-18-2023 Note* Addendum Note - MARISABEL Ennis CNP - 08/12/2022 3:15 PM EDTAddended by: ISAEL BADILLO on: 08/12/2022 03:15 PM Modules accepted: Orders [employer] Phone: [phone]) 781-746104-18-2023 Telephone encounter Note* Telephone Encounter - MARISABEL Ennis CNP - 08/12/2022 3:15 PM EDT Order placed. [id number] Miscellaneous Notes* Addendum Note - MARISABEL Ennis CNP - 08/12/2022 3:15 PM EDTAddended by: ISAEL BADILLO on: 08/12/2022 03:15 PM Modules accepted: Orders * Telephone Encounter - MARISABEL Ennis CNP - 08/12/2022 3:15 PM EDT Order placed. * Telephone Encounter - Nancy Kay MA - 08/12/2022 3:08 PM EDT Received a call from Lizzy with [facility] stating that they need a current Creatine, BUN, GFR results faxed to them so patient can have CT Urogram done. Patient was at their facility to have this done today however the most recent blood work results are from 04/2022. Advised Lizzy thatI would have [facility] orders. Patient agreed to come to [facility] first thing tomorrow morning to have blood work drawn. Patient is rescheduled for CT on 08/14 @ 1pm. Results need to be faxed to Lizzy . * Telephone Encounter - Aicha Lopez RN - 08/05/2022 1:47 PM EDT Kareen, the staff educator for [employer], left a VM regarding [facility]ing the [facility]'s CT [facility] [place]. Authorization number given: [id number]. The fax number for the order is [phone]. Kareen states if you need to contact her regarding this order she can be reached at [phone] and reference case #[id number]. Call placed to Kareen to verify the imaging order needed and fax number. Fax number confirmed. CT Urogram order faxed to [facility]. Will need to keep current CT [facility]. documented in this encounterSGenesis [id number] Telephone encounter Note* Telephone Encounter - Nancy Kay MA - 08/12/2022 3:08 PM EDT Received a call from Lizzy with [facility] stating that they need a current Creatine, BUN, GFR results faxed to them so patient can have CT Urogram done. Patient was at their facility to have this done today however the most recent blood work results are from 04/2022. Advised Lizzy thatI would have [facility] orders. Patient agreed to come to [facility] first thing tomorrow morning to have blood work drawn. Patient is rescheduled for CT on 08/14 @ 1pm. Results need to be faxed to Lizzy . [facility] [id number] Telephone encounter Note* Telephone Encounter - Aicha Lopez RN - 08/05/2022 1:47 PM EDT Kareen, the staff educator for [employer], left a VM regarding [facility]ing the [facility] CT [facility] [place]. Authorization number given: [id number]. The fax number for the order is [phone]. Kareen states if you need to contact her regarding this order she can be reached at [phone] and reference case #[id number]. Call placed to Kareen to verify the imaging order needed and fax number. Fax number confirmed. CT Urogram order faxed to [facility]. Will need to keep current CT Urogram scheduled in case theother location cannot accommodate. [facility] [id number] History of Present illness Narrative* Errol Swift RN - 07/15/2022 11:20 AM EDT UROJET 2% LIDOCAINE JELLY [facility] 89323/673/76 LOT [id number] EXP 10/19 ADMINISTERED BY Pop JACKSON RN PATIENT TOLERATED WELL * Brenna Wright MD - 07/15/2022 11:20 AM EDT Images from the original note were not included. Cystoscopy Procedure Note Indications: Gross hematuria [R31.0] Pre-operative Diagnosis: Hematuria Post-operative Diagnosis: Hematuria Procedure Details The risks, benefits, complications, treatment options, and expected outcomes were discussed with the patient. The patient concurred with the proposed plan, giving informed consent. Cystoscopy was performed today under local anesthesia, using sterile technique. The patient was placed on the office table, prepped with Betadine, and draped in the usual sterile fashion. A flexible cystoscope was used to perform this procedure. Findings: Anterior urethra: normal without strictures and without scarring. Prostatic urethra: 3+ moderate prostatic hyperplasia, without bladder neck contracture of 18 Frenchsize. Bladder: Mild trabeculation, without lesions. Ureteral orifice(s) was/were seen bilateral. Ureteral orifice(s) bilateral were in the normal location and bilateral ureteral orifices were effluxing clear urine. Specimens: none Complications: None; patient tolerated the procedure well. Disposition: To home after 30 minute observation. Condition: stable Attending Attestation: I performed the procedure. Cysto WNL Brenna Wright MD 07/15/2022 at 12:02 PM Office follow up PATIENT NAME: Regan Coughlin DATE OF : 1960 TODAY'S DATE: 07/15/2022 CHIEF COMPLAINT: Chief Complaint Patient presents with Procedure Cystoscopy Subjective: Mr. Coughlin is a 62 y.o. male who presents to the office for follow up of gross hematuria and renallesion He was evaluated in hospital for gross hematuria He does have aortic aneurysm CT showed tubular stasis in bilateral kdineys Review of Systems Past Medical History: Past Medical History: Diagnosis Date AAA (abdominal aortic aneurysm) Coronary artery disease 2019 2x stents, Dr. Eulalio Gutierrez at [facility] TIA (transient ischemic attack) Past Surgical History: Past Surgical History: Procedure Laterality Date CORONARY STENT PLACEMENT 02/2020 x2 IR ANGIOGRAM ENDOVASCULAR AORTIC REPAIR 05/20/2022 OPEN FEMORAL ARTERY EXPOSURE FOR DELIVERY OF ENDOVASCULAR PROSTHESIS OTHER SURGICAL HISTORY Bilateral 05/20/2022 Exploration groin, evacuation of hematoma WISDOM TOOTH EXTRACTION Allergies: Patient has no known allergies. Social History: Social History Socioeconomic History Marital status: Single Spouse name: Not on file Number of children: Not on file Years of education: Not on file Highest education level: Not on file Occupational History Not on file Tobacco Use Smoking status: Every Day Packs/day: 0.25 Years: 30.00 Pack years: 7.50 Types: Cigarettes Smokeless tobacco: Never Tobacco comments: 4 ciggs per day Vaping Use Vaping Use: Never used Substance and Sexual Activity Alcohol use: Yes Alcohol/week: 4.0 standard drinks Types: 4 Shots of liquor per week Drug use: Never Sexual activity: Not on file Other Topics Concern Not on file Social History Narrative Not on file Social Determinants of Health Financial Resource Strain: Not on file Food Insecurity: Not on file Transportation Needs: No Transportation Needs Lack of Transportation (Medical): No Lack of Transportation (Non-Medical): No Physical Activity: Not on file Stress: Not on file Social Connections: Not on file Intimate Partner Violence: Not on file Housing Stability: Unknown Unable to Pay for Housing in the Last Year: No Number of Places Lived in the Last Year: Not on file Unstable Housing in the Last Year: No Family History: Medications Prior to Admission medications Medication Sig Start Date End Date Taking? Authorizing Provider aspirin 81 MG EC tablet Take 81 mg by mouth daily. Yes Historical Provider, atorvastatin (Lipitor) 80 MG tablet Take 80 mg by mouth Nightly. 03/10/22 Yes Historical Provider, clopidogrel (Plavix) 75 MG tablet Take 75 mg by mouth daily. 03/10/22 Yes Historical Provider, Vitals: BP (!) 165/85 Pulse 82 Physical Exam General: alert, appears stated age, and cooperative Abdomen: soft and nondistended Back: straight, CVA tenderness absent : defer exam Labs: WBC Lab Results Component Value Date WBC 8.5 05/22/2022 BMP Lab Results Component Value Date NA 136 05/22/2022 K 3.7 05/22/2022 CL 106 05/22/2022 CO2 26 05/22/2022 BUN 16 05/22/2022 CREATININE 0.67 05/22/2022 GLUCOSE 112 (H) 05/22/2022 CALCIUM 8.1 (L) 05/22/2022 PSA No results found for: PSA UA Lab Results Component Value Date COLORU [place] (A) 05/20/2022 GLUCOSEU Normal 05/20/2022 UROBILINOGEN Normal 05/20/2022 Review: HISTORY: Abdominal pain Noncontrast CT the abdomen and pelvis is performed. Earlier aortoiliac endograft placement with bilateral renal artery stenting today. FINDINGS: 1. 6.6 cm abdominal aortic aneurysm with aortoiliac endograft and bilateral renal artery stents appearing in good position. 2. Bilateral small groin hematomas (underlying pseudoaneurysm difficult to exclude without contrast) with small areas of adjacent postoperative soft tissue air/swelling. 3. Areas of tubular stasis in both kidneys, left greater than right, possibly due to small areas ofinfarction with no evidence of retroperitoneal or intraperitoneal hemorrhage. 4. Small amount of biliary contrast excretion fills the gallbladder, degenerative disc disease lower lumbar spine, Ramirez catheter to the urinary bladder Impression/Plan Diagnoses and all orders for this visit: Gross hematuria - CT UROGRAM w wo iv contrast; Future Renal lesion Tubular stasis noted by radiology on noncontrast CT This along with gross hematuria does require follow up repeat CT urogram] Cytoscopy today WNL Check detect cx as well No follow-ups on file. Brenna Wright MD 07/15/22 12:02 PM documented in this encounterSGenesis [id number] Telephone encounter Note* Telephone Encounter - Jannette Rivera - 06/24/2022 9:09 AM EST Spoke with the pt and scheduled him for a cysto 20 min visit. [facility] [id number] Miscellaneous Notes* Telephone Encounter - Jannette Rivera - 06/24/2022 9:09 AM EST Spoke with the pt and scheduled him for a cysto 20 min visit. * Telephone Encounter - Jessica Miller RN - 06/05/2022 3:46 PM EST Left detailed message advising patient of cytology results and then he needs to follow up with our office for further testing. He will be a new patient to our practice. I left office number and requested he call back to get scheduled. Routing to new patient schedulers in case patient calls back. * Telephone Encounter - Svetlana Crawley LPN - 06/03/2022 9:11 AM EST Left another VM for patient to frannie the office. * Telephone Encounter - Svetlana Crawley LPN - 05/30/2022 11:04 AM EST LVM for patient to call the office. * Telephone Encounter - Svetlana Crawley LPN - 05/30/2022 11:03 AM EST ----- Message from MARISABEL Zamarripa NP sent at 05/30/2022 10:37 AM EST ----- Please notify the patient the urine cytology only revealed atypical cells, this indicates the test is inconclusive. He also he needs scheduled for hospital follow up with urology as he was seen for gross hematuria (needs CT urogram & office cystoscopy). Thanks. documented in this [facility]02-15-2023 Telephone encounter Note* Telephone Encounter - Irish Norton - 06/11/2022 3:19 PM EST Paperwork has been faxed and recived. Patient has been called and notified [id number] Miscellaneous Notes* Telephone Encounter - Irish Norton - 06/11/2022 3:19 PM EST Paperwork has been faxed and recived. Patient has been called and notified * Telephone Encounter - Irish Norton - 06/11/2022 1:01 PM EST Patient came into the office today looking to receive a medical clearance letter to return to work.Surya has already cleared him according to his chart, we will just need the paperwork filled out. Patient is over 2 weeks post op. He would like to return to work on June 16. Regan works at [employer], Ph: [phone] Fax # [phone] Attention to Nils Cole Patient would like a phone call once his documentation is sent to his job. documented in this [facility]02-15-2023 Telephone encounter Note* Telephone Encounter - Irish Norton - 06/11/2022 1:01 PM EST Patient came into the office today looking to receive a medical clearance letter to return to work.Surya has already cleared him according to his chart, we will just need the paperwork filled out. Patient is over 2 weeks post op. He would like to return to work on June 16. Regan works at [employer], Ph: [phone] Fax # [phone] Attention to Nils Cole Patient would like a phone call once his documentation is sent to his job. [id number] Telephone encounter Note* Telephone Encounter - Jessica Miller RN - 06/05/2022 3:46 PM EST Left detailed message advising patient of cytology results and then he needs to follow up with our office for further testing. He will be a new patient to our practice. I left office number and requested he call back to get scheduled. Routing to new patient schedulers in case patient calls back. [facility] [id number] Miscellaneous Notes* Telephone Encounter - Jessica Miller RN - 06/05/2022 3:46 PM EST Left detailed message advising patient of cytology results and then he needs to follow up with our office for further testing. He will be a new patient to our practice. I left office number and requested he call back to get scheduled. Routing to new patient schedulers in case patient calls back. * Telephone Encounter - Svetlana Crawley LPN - 06/03/2022 9:11 AM EST Left another VM for patient to frannie the office. * Telephone Encounter - Svetlana Crawley LPN - 05/30/2022 11:04 AM EST LVM for patient to call the office. * Telephone Encounter - Svetlana Crawley LPN - 05/30/2022 11:03 AM EST ----- Message from MARISABEL Zamarripa NP sent at 05/30/2022 10:37 AM EST ----- Please notify the patient the urine cytology only revealed atypical cells, this indicates the test is inconclusive. He also he needs scheduled for hospital follow up with urology as he was seen for gross hematuria (needs CT urogram & office cystoscopy). Thanks. documented in this [facility]02-08-2023 History of Present illness Narrative* Cesar London MD - 06/04/2022 3:15 PM EST 06/04/2022 Regan Coughlin 1960 Chief Complaint Patient presents with Post-op 1ST PO FENESTRATED STENT GRAFT 05/20/2022 (SURYA&MADDIE) Patient returns for post operative evaluation status post fenestrated stent graft . The patient denies any unexpected problems since hospital discharge. Past Surgical History: Procedure Laterality Date CORONARY STENT PLACEMENT 02/2020 x2 IR ANGIOGRAM ENDOVASCULAR AORTIC REPAIR 05/20/2022 OPEN FEMORAL ARTERY EXPOSURE FOR DELIVERY OF ENDOVASCULAR PROSTHESIS OTHER SURGICAL HISTORY Bilateral 05/20/2022 Exploration groin, evacuation of hematoma WISDOM TOOTH EXTRACTION Physical Exam: The incision(s) are healing without evidence of infection. Heart rhythm is regular.The incisions are intact Assessment: Post-operative zfen graft . Problem List Items Addressed This Visit Circulatory Abdominal aortic aneurysm, without rupture, unspecified - Primary Relevant Orders Vascular US EVAR evaluation duplex I reviewed with the patient that normal activities can be resumed as tolerated. Plan: will schedule for post op duplex released to all activity Follow up if symptoms worsen or fail to improve. . documented in this [facility]02-07-2023 Telephone encounter Note* Telephone Encounter - Svetlana Crawley LPN - 06/03/2022 9:11 AM EST Left another VM for patient to frannie the office. [id number] Miscellaneous Notes* Telephone Encounter - Svetlana Crawley LPN - 06/03/2022 9:11 AM EST Left another VM for patient to frannie the office. * Telephone Encounter - Svetlana Crawley LPN - 05/30/2022 11:04 AM EST LVM for patient to call the office. * Telephone Encounter - Svetlana Crawley LPN - 05/30/2022 11:03 AM EST ----- Message from MARISABEL Zamarripa NP sent at 05/30/2022 10:37 AM EST ----- Please notify the patient the urine cytology only revealed atypical cells, this indicates the test is inconclusive. He also he needs scheduled for hospital follow up with urology as he was seen for gross hematuria (needs CT urogram & office cystoscopy). Thanks. documented [id number] Telephone encounter Note* Telephone Encounter - Svetlana Crawley LPN - 05/30/2022 11:04 AM EST LVM for patient to call the office. [id number] Telephone encounter Note* Telephone Encounter - Svetlana Crawley LPN - 05/30/2022 11:03 AM EST ----- Message from MARISABEL Zamarripa NP sent at 05/30/2022 10:37 AM EST ----- Please notify the patient the urine cytology only revealed atypical cells, this indicates the test is inconclusive. He also he needs scheduled for hospital follow up with urology as he was seen for gross hematuria (needs CT urogram & office cystoscopy). Thanks. [facility] [id number] Nurse Note* Marbella Novak RN - 05/22/2022 6:15 PM EST Discharge instructions reviewed with patient. No questions at this time. Ivs removed, meds to beds delivered. All belongings packed. Groin sites cleansed and dressed, brusing noted. Wheeled to discharge by RN. [facility] [id number] Nurse Note* Marbella Novak RN - 05/22/2022 6:15 PM EST Discharge instructions reviewed with patient. No questions at this time. Ivs removed, meds to beds delivered. All belongings packed. Groin sites cleansed and dressed, brusing noted. Wheeled to discharge by RN. * Marbella Novak RN - 05/22/2022 1:15 PM EST Patient ambulated around unit. Urinated while walking, unable to collect. Only 50cc in urinal. Bladder scanned for 0 ml. Urology paged. * Leo Tamayo RN - 05/20/2022 1:37 PM EST Arrived from PACU, small right groin hematoma, sanguinous drainage marked on both groins. Blood noted in ramirez. Pressure held to Right groin. Site is more soft. No new oozing at present. Dr. Burns notified of hematoma and blood in ramirez. Cont to monitor. Call light in reach. documented in this [facility]01-26-2023 Hospital course Narrative* Roosevelt Trevino, - 05/22/2022 4:46 PM EST Vascular Surgery Discharge Summary [facility] SUMMARY: The patient is a 62 y.o. male who was admitted to the hospital on 05/20/2022 6:16 AM for treatment of AAA. On the day of admission, a fenestrated EVAR was performed. The patient's hospital course was consisted of hematuria requiring ramirez and urology consult. He was taken back to OR for bilateral groin hematomas on POD0. Diffuse oozing likely due to Plavix. No issues after that. Ramirez removed. Thepatient was discharged on 05/22/22. Tolerating a diet, moving bowels, and urinating. The incisions were clean and intact. The patient was discharged to home in satisfactory condition with instructionsto call the office for a follow up appointment. Hospital Problem List: Principal Problem: Infrarenal 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 Procedure(s) (LRB): FENESTRATED STENT GRAFT (N/A) OPEN FEMORAL ARTERY EXPOSURE FOR DELIVERY OF ENDOVASCULAR PROSTHESIS (Bilateral) Discharge Medications: acetaminophen, 650 mg, Oral, q6h aspirin, 81 mg, Oral, Daily atorvastatin, 80 mg, Oral, Nightly clopidogrel, 75 mg, Oral, Daily docusate sodium, 100 mg, Oral, BID sterile water, 3,000 mL PRN medications: hydrALAZINE, HYDROmorphone, hyoscyamine, labetalol, ondansetron ODT OR ondansetron, oxyCODONE-acetaminophen OR oxyCODONE-acetaminophen, sodium chloride, sodium chloride, sodium chloride 0.9%, sodium chloride 0.9% Is the patient discharged on ASA? yes Is the patient discharged on an Antiplatelet other than ASA? plavix Is the patient discharged on an anticoagulant? no Is the patient discharged on a statin? yes documented in this [facility]01-26-2023 Hospital Discharge instructions* Discharge Instructions* Gabbie Mcconnell MD - 05/22/2022 4:40 PM EST Blood Thinner Medication: You may be prescribed a blood thinning medication before or after your procedure. It is important to start taking or resume your medication as instructed by your doctor. Cholesterol (Statin): You may be prescribed a cholesterol medication known as a statin. It is important to take this medication as instructed by your doctor. One common side effect of this type of medication is muscle aches. If this occurs, you should stop taking it. Pain Control: You may be prescribed an opiate pain medication after your procedure. These are otherwise known as narcotics and should be taken only as prescribed. DO NOT operate a vehicle, heavy machinery, appliances, or drink alcohol while on this medication. For additional pain/swelling relief, you may ice andelevate the surgical site(s). Note: It is normal to have a certain degree of pain after an operation. Our office is only able to prescribe pain medications within a short period after surgery with few exceptions. Due to certain limitations, prescriptions may need to be picked up in person. If requiring a refill over a weekend, we ask that you please call our office before 1:00pm on Thursday. Constipation: One of the side effects of opiate medications is constipation. We recommend that patients take precautions to prevent this: Drink plenty of water (6-8 glasses of 8 oz. per day). Avoid alcohol or excessive caffeine. Eat plenty of fiber (fruits, vegetables and whole grains). Take an over the counter stool softener (Colace or Miralax) as instructed on the bottle. You can take this each day that you continue to take opiates. Nausea: Some pain medications may cause you to feel nauseous. If this occurs, you can call your doctor who may prescribe anti-nausea medication as needed. Diet: Resume low-fat, low cholesterol diet high in vegetables. Make sure to include protein with each meal while recovering from surgery. If you are on a specific type of diet for your condition, please resume that instead. Activity: DO NOT lift anything over 10 pounds for 6 weeks. You may slowly resume normal activities as tolerated with certain restrictions. Driving: DO NOT operate a motor vehicle unless released by your doctor DO NOT operate a motor vehicle if you are still on pain medicine DO NOT operate a motor vehicle unless you can safely press the gas and brake, even under emergency conditions. Dressing and Wound Care Instructions: You be discharged with airam or stitches in your groin and/or leg. The bandages in these areas NEED to be changed daily or as they become saturated. You may have a moderate amount of leg swelling and/or clear, red/yellow fluid drainage for several weeks after surgery. Along with changing your bandages, elevating your legs above the level of your heart can help relieve these symptoms. DO NOT apply lotions, peroxide or alcohol. You may wash your incision or shower with soap and waterafter 72 hours. Rinse and pat dry. DO NOT use baths, hot tubs, and pools unless told otherwise. This can increase your risk of infection. Emergency: Call 911 if you develop sudden chest pain or shortness of breath. If you develop signs of infection, you should call our office as soon as possible. These include: redness, warmth, severe swelling, pus-like drainage, and fever of >100 degrees Fahrenheit. If you have any additional questions about your surgery, please call our office. l documented in this [facility]01-26-2023 History of Present illness Narrative* Adriane Zuhair, RD - 05/22/2022 4:25 PM EST Nutrition Assessment Type and Reason for Visit: Initial, Wound Nutrition Recommendations/Plan: Continue current diet to promote PO intake. Monitor need to include Cardiac (3- 4gm) diet restrictions if intakes consistently improve. Per MNT protocol, initiate ONS Ensure Plus BID to provide 350 kcals and 20g protein per serving. Please document % meal intakes under I/O flowsheet. Monitor nutrition status, intakes, wt trends, labs, and fluid balance. RD will continue to follow. Malnutrition Assessment: Malnutrition Status: Insufficient data Nutrition Assessment: Pt s/p FEVAR via b/l groin cutdowns and re-exploration b/l groin wounds 05/20. Possible discharge today is stable per vascular. Pt was unavailable at time of RD assessment. Estimated Daily Nutrient Needs: Energy Requirements Based On: Kcal/kg Weight Used for Energy Requirements: Vaughn Weight for Energy Calculation (kg): 59 kg Total Energy Requirements (kcals/day): 2030-6274 Weight Used for Protein Requirements: Vaughn Weight in Kg Used for Protein Requirements: 59 kg Estimated Total Protein (g/day): 71-83 Estimated Daily Total Fluid (ml/day): per MD Nutrition Related Findings: +BS. -I&O. No edema. Sai 21 Wound Type: Surgical Incision BMP: Recent Labs 05/20/22 1652 05/20/22203405/22/22 0026 NA 137 138 136 K 3.9 4.0 3.7 CL 106 109* 106 CO2 BUN 15 16 16 CREATININE 0.65* 0.69 0.67 GLUCOSE 114* 120* 112* CALCIUM 8.4 8.5 8.1* HEPATIC: No results for input(s): AST, ALT, BILITOT, ALKPHOS in the last 72 hours. No lab exists for component: ALB No results found for: HGBA1C Current Nutrition Therapies: Adult diet Regular Current Oral Intake Average Meal Intake: 1-25%, 26-50% (per flowsheet) Average Supplements Intake: None Ordered Anthropometric Measures: Height: 162.6 cm (5' 4) Current Body Weight: 76.7 kg Weight Source: Stated Usual Body Weight: 80.7 kg Vaughn Body Weight (lbs) (Calculated): 130 lbs Vaughn Body Weight (Kg) (Calculated): 59 kg BMI (kg/m2) (Calculated): 29 Weight Adjustment For: No Adjustment BMI Categories: Overweight (BMI 25.0-29.9) Nutrition Diagnosis: Increased nutrient needs related to (impaired skin integrity) as evidenced by wounds Nutrition Interventions: Nutrition Education/Counseling: No recommendation at this time Coordination of Nutrition Care: Continue to monitor while inpatient Goals: Previous Goal Met: Progressing toward Goal(s) Goals: PO intake 50% or greater, by next RD assessment Nutrition Monitoring and Evaluation: Behavioral-Environmental Outcomes: None Identified Food/Nutrient Intake Outcomes: Food and Nutrient Intake, Supplement Intake Physical Signs/Symptoms Outcomes: Biochemical Data, GI Status, Fluid Status or Edema, Nutrition Focused Physical Findings, Skin, Weight Discharge Planning: Too soon to determine Adriane Moffett RD, LD Contact: [phone] * Cesar London MD - 05/22/2022 7:53 AM EST Department of Vascular Surgery - Progress Note PATIENT NAME: Regan Coughlin : 1960 ATTENDING PHYSICIAN: Cesar London MD ADMIT DATE: 05/20/2022 TODAY'S DATE: 05/22/2022 SUBJECTIVE NAEON. Pt up in chair. Pain controlled. No further complaints. Denies fever, chills, n/v, numbness,paraesthesia. Hgb drop 11.0<14.2. Recheck at noon. OBJECTIVE VITALS: BP 107/59 (BP Location: Left arm, Patient Position: Sitting) Pulse 80 Temp 37.1 C (98.8F) (Temporal) Resp 19 Ht 1.626 m (5' 4) Wt 76.7 kg (169 lb) SpO2 93% BMI 29.01 kg/m PHYSICAL EXAM: Physical Exam Constitutional: General: He is not in acute distress. HENT: Head: Normocephalic and atraumatic. Eyes: General: Right eye: No discharge. Left eye: No discharge. Extraocular Movements: Extraocular movements intact. Cardiovascular: Rate and Rhythm: Normal rate and regular rhythm. Pulmonary: Effort: No respiratory distress. Breath sounds: No stridor. Abdominal: General: Abdomen is flat. There is no distension. Musculoskeletal: General: No swelling or deformity. Cervical back: Normal range of motion. No rigidity. Skin: Findings: No lesion or rash. Comments: Bilateral groin dressings, R & L with minimal bloody strikethrough. Swelling decreasing Neurological: General: No focal deficit present. Mental Status: He is alert and oriented to person, place, and time. Psychiatric: Mood and Affect: Mood normal. Behavior: Behavior normal. EXTREMITIES: LLE: DP and PT palp RLE: DP and PT plap Data Recent Labs 05/20/22203405/22/22 0026 WBC 15.4* 8.5 HGB 14.2 11.0* HCT 40.2 31.6* PLT 183 153 Recent Labs 05/20/22 1652 05/20/22203405/22/22 0026 NA 137 138 136 K 3.9 4.0 3.7 CL 106 109* 106 CO2 23 23 26 BUN 15 16 16 CREATININE 0.65* 0.69 0.67 GLUCOSE 114* 120* 112* No results for input(s): AST, ALT, BILITOT, ALKPHOS in the last 72 hours. No lab exists for component: ALB ASSESSMENT AND PLAN 62 y/o M s/p FEVAR via b/l groin cutdowns and re-exploration b/l groin wounds 05/20 -Cont ASA/plavix -Cont statin -PRN pain control -PRN nausea control -regular diet -Ramirez per Urology -f/u rH&H at noon, if stable discharge today -WDW Dr. London Will plan to discharge today Will see what urology plans for catheter are * Cesar London MD - 05/21/2022 7:48 AM EST Department of Vascular Surgery - Progress Note PATIENT NAME: Regan Coughlin : 1960 ATTENDING PHYSICIAN: Cesar London MD ADMIT DATE: 05/20/2022 TODAY'S DATE: 05/21/2022 SUBJECTIVE Overnight patient was taken to OR for bilateral groin swelling and bleeding. Groin wounds re-explored and given 2 units of platelets. No large vessel bleeding, no pseudoaneurysm encountered intraop. Hgb post-op. Today, pt is doing well with controlled bleeding. Pain controlled. No further complaints. Denies fever, chills, n/v, numbness, paraesthesia. Discussed importance of attempting to ambulatetoday. OBJECTIVE VITALS: BP 125/64 Pulse 69 Temp 36.8 C (98.2 F) (Temporal) Resp 17 Ht 1.626 m (5' 4) Wt 76.7 kg (169 lb) SpO2 100% BMI 29.01 kg/m PHYSICAL EXAM: Physical Exam Constitutional: General: He is not in acute distress. HENT: Head: Normocephalic and atraumatic. Eyes: General: Right eye: No discharge. Left eye: No discharge. Extraocular Movements: Extraocular movements intact. Cardiovascular: Rate and Rhythm: Normal rate and regular rhythm. Pulmonary: Effort: No respiratory distress. Breath sounds: No stridor. Abdominal: General: Abdomen is flat. There is no distension. Musculoskeletal: General: No swelling or deformity. Cervical back: Normal range of motion. No rigidity. Skin: Findings: No lesion or rash. Comments: Bilateral groin dressings, R CDI, L with some bloody strikethrough. Swelling w/o pulsatile mass. Neurological: General: No focal deficit present. Mental Status: He is alert and oriented to person, place, and time. Psychiatric: Mood and Affect: Mood normal. Behavior: Behavior normal. EXTREMITIES: LLE: DP and PT palp RLE: DP and PT plap Data Recent Labs 05/20/222034 WBC 15.4* HGB 14.2 HCT 40.2 PLT 183 Recent Labs 05/20/22 1652 05/20/222034 NA 137 138 K 3.9 4.0 CL 106 109* CO2 BUN 15 16 CREATININE 0.65* 0.69 GLUCOSE 114* 120* No results for input(s): AST, ALT, BILITOT, ALKPHOS in the last 72 hours. No lab exists for component: ALB ASSESSMENT AND PLAN 62 y/o M s/p FEVAR via b/l groin cutdowns and re-exploration b/l groin wounds 05/20 -Cont ASA/plavix -Cont statin -PRN pain control -PRN nausea control -regular diet -WDW Dr. London Aware of the events of last evening Patient started with profound hematuria and then developed groin hematomas This was about 6 hours post op He was on plavix preop He showed no abnormal bleeding intra op Needs to be on plavix due to renal stents and cardiac stent Ramirez plan per urology * Nevaeh Anton MD - 05/21/2022 7:36 AM EST UROLOGY PROGRESS NOTE PATIENT NAME: Regan Coughlin DATE OF : 1960 ADMISSION DATE: 05/20/2022 6:16 AM TODAY'S DATE: 05/21/2022 Subjective No acute events overnight. CBI at very slow gtt this AM, drain faint pink urine CBI clamped by uro resident on rounds Objective VS: BP 125/64 Pulse 69 Temp 36.8 C (98.2 F) (Temporal) Resp 17 Ht 5' 4 (1.626 m) Wt 169 lb (76.7 kg) SpO2 100% BMI 29.01 kg/m Vitals: 05/21/22 0729 BP: Pulse: Resp: Temp: 36.8 C (98.2 F) SpO2: I & O - 24hr: Intake/Output Summary (Last 24 hours) at 05/21/2022 0736 Last data filed at 05/21/2022 0500 Gross per 24 hour Intake 2515.3 ml Output 2125 ml Net 390.3 ml Physical Exam: General: Neck: Resp: Abdomen: No acute distress Supple Normal effort, no respiratory distress, on exam Soft, non-tender, nondistended : 24F way simplastic, cbi, light pink urine Skin: Skin color, texture, turgor normal, no rashes or lesions Labs and Imaging Studies Labs: CBC: Recent Labs 05/20/222034 WBC 15.4* HGB 14.2 HCT 40.2 MCV 94.8 PLT 183 BMP: Recent Labs 05/20/22 1652 05/20/222034 NA 137 138 K 3.9 4.0 CL 106 109* CO2 BUN 15 16 CREATININE 0.65* 0.69 Magnesium: No results found for: MG Phosphate: No results found for: PHOS PT/INR: Recent Labs 05/20/222034 PROTIME 11.5 INR 1.1 U/A: Lab Results Component Value Date BLOODU >1.0 (A) 05/20/2022 GLUCOSEU Normal 05/20/2022 KETONESU Negative 05/20/2022 Urine Culture: No components found for: LABURIN Imaging Studies: No recent imaging Assessment and Plan ASSESSMENT: 62 y.o. male with gross hematuria s/p AAA graft, on ASA/Plavix. PLAN: -at bedside, in usual sterile fashion, Urology resident placed a 24F 3way Simplastic ramirez for return of blood tinged urine on 05/20 -ramirez irrigated at bedside by Urology resident and cleared to light pink quickly -maintain ramirez -urine light pink this AM, CBI clamped -will reevaluate urine this afternoon -continue to manually irrigate ramirez every 4 hours for clot evacuation -Manually irrigate ramirez with Felipe syringe (Irrigation Kit) for clot evacuation until light pink/clear, using normal saline, every 4 hours. OK to hold if urine is yellow -Rocephin x1 given instrumentation with ramirez placement -Levsin PRN for bladder spasms -Cr wnl -UA +leuks, rbc, wbc, kelvin, yeast -check urine culture -urine cytology (p) -patient will need hematuria workup with cystoscopy and CT Urogram and as outpatient -hold anticoagulation, if medically feasible, until hematuria clears but will defer anticoagulationmanagement to vascular surgery -will likely be okay for void trial prior to discharge -please page integration software developer resident dive master of anticipated day of discharge for instructions -please page integration software developer resident with questions or concerns Nevaeh Anton MD Urology PGY-1 05/21/2022 7:36 AM Pager# [phone] * Colette Quesada RN - 05/21/2022 5:00 AM EST Sandbags off pt groin sites per Dr. Hope. * Hua Hope MD - 05/20/2022 7:36 PM EST Called to bedside regarding patient's bilateral groin swelling and bleeding. Patient is POD#0 from FEVAR via bilateral groin cutdowns this AM. Had to have urology exchange a ramirez due to gross hematuria. New 24F irrigated ramirez in place. Renal duplex from earlier in the afternoon shows bilateral renal artery flow. Evaluated patient at bedside. He reports progressively worsening groin pain post op. Is now complaining of bilateral thigh/knee paraesthesia and flank/back pain. Has not gotten out of bed. Vitals: 05/20/221927 BP: Pulse: Resp: Temp: 36.5 C (97.7 F) SpO2: HR in 60s and BP in 140s, consistent with his vitals throughout the day. Both opsite dressing completely saturated with rundown into groin creases. These were removed whichrevealed mild oozing from a few airam on each incision. There is underlying firm swelling R > L. Palpable femoral pulse bilaterally. The R groin swelling has a mild pulsatile effect when deeply palpated. Minimal ecchymoses on the skin edges of the staple line, otherwise no gross skin changes. Palpable DP/PT pulses bilaterally. No obvious flank swelling/hematoma. Patient is very tender on exam with regard to his groins. 24F ramirez in place with red tinged output. Assessment & Plan - 62 y/o M s/p FEVAR via b/l groin cutdowns with worsening groin swelling - Concern for hematoma vs pseudoaneurysm - Will obtain stat CT non-contrast and labs - NPO - Discussed with Dr. Romero, who also evaluated the patient at bedside - Will follow up CT for next steps Hua Hope MD General Surgery, PGY-5 05/20/2022 8:06 PM -- CT reviewed. Concern for ongoing bleeding. Will take back to OR urgently this evening. Patient consented. Blood consent also obtained. 2u platelets crossed. CBC/BMP/INR. Hua Hope MD General Surgery, PGY-5 05/20/2022 8:32 PM Associated attestation - Yaima Romero MD - 05/20/2022 8:54 PM EST I saw and evaluated the patient, participating in the sharp portions of the service. I reviewed the resident s note. I agree with the resident s findings and plan. Concern for bleeding at bilateral femoral incisions, right > left with possible pseudoaneurysm vs hematoma. Plan for return to OR for evaluation and repair. Platelets ordered as well as the patient has had ongoing oozing from incisions as well as pink tinge to his urine output and is on ASA and Plavix at home. No concern for RP hematoma on CT scan. Duplex performed earlier this evening showed parenchymal flow in the kidneys bilaterally. Await OR availability. documented in this [facility]01-26-2023 Nurse Note* Marbella Novak RN - 05/22/2022 1:15 PM EST Patient ambulated around unit. Urinated while walking, unable to collect. Only 50cc in urinal. Bladder scanned for 0 ml. [facility] paged. [id number] Plan of care note* Care Plan - Marbella Novak RN - 05/22/2022 1:14 PM EST Problem: Anxiety Goal: Objective - Reduced anxiety symptoms Outcome: Progressing Goal: Objective - Implement calming and coing strategies to reduce overall anxiety and cope with panic Outcome: Progressing Problem: Pain - Adult Goal: Verbalizes/displays adequate comfort level or baseline comfort level Outcome: Progressing [id number] Miscellaneous Notes* Care Plan - Marbella Novak RN - 05/22/2022 1:14 PM EST Problem: Anxiety Goal: Objective - Reduced anxiety symptoms Outcome: Progressing Goal: Objective - Implement calming and coing strategies to reduce overall anxiety and cope with panic Outcome: Progressing Problem: Pain - Adult Goal: Verbalizes/displays adequate comfort level or baseline comfort level Outcome: Progressing * Care Plan - Zena Chun RN - 05/21/2022 11:00 AM EST Problem: Anxiety Goal: LTG - Patient Stated 1 Outcome: Progressing Goal: IP Editable Goal Outcome: Progressing Goal: Objective - Identify and manage anxiety triggers Outcome: Progressing Goal: Objective - Decrease panic attacks Outcome: Progressing Goal: Objective - Reduced anxiety symptoms Outcome: Progressing Goal: Objective - Identify and engage in rewarding activities daily Outcome: Progressing Goal: Objective - Maintain/resume involvement in work, family, and social activities Outcome: Progressing Goal: Objective - Jounral daily about panic and agoraphobia experiences and share with therapist/group Outcome: Progressing Goal: Objective - Implement calming and coing strategies to reduce overall anxiety and cope with panic Outcome: Progressing Goal: Objective - Share situations in which patient identified, challenged and replaced biased, fearful self-talk with reality-based, positive self-talk Outcome: Progressing The patient is Moderately Stable - Low risk of patient condition declining or worsening The patient's goals for the shift include safety The clinical goals for the shift include safety * Care Coordination - Patt Hoffman RN - 05/20/2022 2:47 PM EST Care Managment Initial Assessment Date: 05/20/2022 Patient Name: Regan Coughlin : 1960 Patient Information Source of Information: Patient Cognition/Language: WFL - Within Functional Limits Permission given to speak with patient sales representative womens health/caregiver as indicated: Yes (Brother at bedside) Confirmation of Payer with patient/family: Payer Name: O : Confirmation of Primary Care Physician: Confirmed PCP Name: Dr Craft Seen in last 2 years?: Yes Primary Caregiver: Self If assistance needed, confirmed caregiver ready, willing and able to care for patient at discharge:Yes Confirmed with: Living Arrangements Current Residence: House Number of Floors 1 Number of Entry Steps: 2 Bed/Bath Levels: Both first floor Facility: Facility Name: Plan to Return: Yes Lives with: (Lives with brother) Support Systems: Family members Activities of Daily Living Ambulation: Independent Bathing/Dressing: Independent Elimination/Continence/Toileting: Independent Feeding: Independent Who Assists with Activities of Daily Living: Instrumental Activities of Daily Living Prescription Coverage: Yes Pharmacy Used: [address] in [place] Medication Management: Independent Transportation/Shopping: Independent Transportation Mode: Needs Assistance with Transportation at Discharge: No Meal Preparation: Independent Laundry/Cleaning: Independent Finances/Bill Paying: Independent Communication: Independent Types of Care Services/Equipment Utilized Care Services: Dialysis Type: Durable Medical Equipment: Patient's Goal/Discharge Plan Patient expects to be discharged to: Discharge Planning Actions: Continue to follow Patient's Choice Rights and [employer] and Collaborative Relationships Disclosed as Indicated for Post-Acute Care: Interdisciplinary Team Engagement: Social Work Referral for: Additional Information: [place] per patient. Lives with brother. Independent ADLS/IADLS. No concerns voiced at this time. Patt Hoffman RN * Perioperative Nursing Note - Aura Rendon RN - 05/20/2022 11:58 AM EST Update to brother Bradley * Perioperative Nursing Note - Aura Rendon RN - 05/20/2022 11:[address] Trevino notified of bloody drainage to bilateral groin dressings * Op Note - Cesar London MD - 05/20/2022 7:28 AM EST Operative report Preoperative diagnosis: Juxtarenal abdominal aortic aneurysm Postoperative diagnosis: Same Procedure: Fenestrated aortic stent graft; Z FEN 2-26-109, Z FEN 12 28-76, Z SLE 16-74, Z SLE 16-56, right renal artery 6 x 29 VBX, left renal artery 6 x 29 VBX, bilateral common femoral artery exposures Surgeons: Surya and Maddie Assistants: Vivian History 62-year-old gentleman who presents with a juxtarenal abdominal aortic aneurysm. We discussed treatment options and even though he was younger he favored the minimally invasive procedure and that it would allow him to get back to work sooner. He did not feel that he could be off work for the4 to 6 weeks if he had an open repair. Risk benefits and options of the surgery were discussed withhim and he agrees to proceed. Patient does have a history of coronary disease and has not been verycompliant in his postoperative care in regards to cholesterol management and smoking cessation. Procedure: Under general anesthesia he was prepped and draped in a sterile manner. Dr. Perkins and Dr. London each exposed common femoral artery in his groin proximal distal control were obtained. Dr. Perkins and Dr. London then each placed a 6 Italian sheath in the common femoral artery using using a Seldinger technique and then using a straight flush catheter and exchanged the wire out for aLunderquist wire. The Lunderquist wire was placed under direct vision to the level of the subclavian artery. A 20 mm sheath was placed up the left common femoral artery and the fenestrated The Z FEN -26-109 was placed up the right side. The outer restraint was removed from the Z FEN. Dr. Perkins then cannulated the distal aspect of the Z FEN graft and passed wires through the fenestrations into the renal arteries following these wires 7 Italian Ansell sheaths were passed into the renal arteries and we confirmed that this was in the renal artery the 6 x 29 VBX stents were placed in the in the Ansell sheaths.. At this point the remaining portion of the fenestrated Was deployed and the VBX stents were deployed in the renal arteries. These were postdilated with 10 x 2 balloons to flare the inner aspect of the stent next to the Z FEN 04-23-1976 was deployed and the Ansell sheaths and straightflush catheter were removed. The contralateral gate was cannulated on the left side a straight pigta il catheter was used with sidhu to size the length of the graft and a 16-74 was deployed above the hypogastric artery on the left side. The rest of the main body was deployed on the right and a 16-56was deployed without difficulty. A combination of a 12 mm angioplasty balloon and Coda balloon wereused to balloon all the junctions. Completion angiogram revealed good flow with no evidence of a type I endoleak. There may be a slight type II endoleak in the very proximal portion near the renal artery stents but at this point it appeared to be small something that would certainly clot on its ownthe sheaths and wires were removed from the groin. Common femoral arteries were repaired with 5-0 Prolene suture. Prior to completion the system was flushed backbled and de-aired the anastomosis werecompleted and flow was reestablished without difficulty. Hemostasis was obtained. The groins were closed with 2-0 Vicryl 3-0 Vicryl and surgical clips. Dry sterile dressings were applied and patient was transferred to the recovery area in a stable manner * Op Note - Jd Perkins MD - 05/20/2022 7:28 AM EST PREOPERATIVE DIAGNOSIS: Greater than 6-cm juxtarenal aortic aneurysm. POSTOPERATIVE DIAGNOSIS: Same. OPERATION: Fenestrated endovascular repair of juxtarenal aortoiliac aneurysm using modular [id number] stent graft with bilateral renal artery stent grafts and bilateral femoral artery exposures ANESTHESIA: General endotracheal. COMPLICATIONS: None DESCRIPTION OF PROCEDURE: Due to the complexity of the operation, two attending vascular surgeons were necessary. The patient was identified and the procedure was confirmed. The abdomen, groins and thighs were prepped and draped in the usual sterile fashion. Bilateral infrainguinal groin incisions were made and carried down through the subcutaneous tissue. Dissection continued down to the inguinal ligaments, and the common femoral arteries were identified and freed from the surrounding tissues. The vessels were surrounded proximally and distally with Vesseloops for control. The patient was systemically heparinized 80-90 units/kg and redosed periodically. Bilateral 6 Italian sheaths were placed and Lunderquist wires were positioned under direct vision upeach through each sheath. We then exchanged out the left 6 Italian sheath for a 20 Italian sheath. The custom-made fenestrated main body device ZFEN P- 2-26-109 was then checked for orientation multiple times and was advanced up the right Lunderquist wire the fenestrations were lined up to the renal arteries and superior mesenteric artery and both renal arteries were cannulated with 7 Italian sheaths from the left side. The sheaths were then passed into the renal arteries and a 6 x 29 covered VBX stent was positioned on the right and a 6x 29 VBX stent was positioned on the left. The top cap was f ully deployed and ballooned using the Coda. The renal VBX stents were deployed. The aortic portion of both renal stents were flared with 10 x 2 balloons. Completion renal angiograms yielded a good result. The distal main body device ZFEN-D- 12-28-76 was oriented and deployed up the right side with proper overlap. Contralateral gate was cannulated. Pigtail marker was placed for measurements to thehypogastric. The left limb was deployed in the common iliac artery this was a ZSLE 16-74. On the right side the rest of the main body was deployed. A ZSLE 16-56 right limb extension was deployed in the right common iliac sparing the hypogastric. All junctions were ballooned with a Coda balloon. Completion angiogram revealed good flow in all limbs and both renal arteries, superior mesenteric artery and both hypogastric arteries. The sheaths and wires were removed and the femoral arteries were repaired with 5-0 Prolene sutures prior to completion they were flushed backbled and de-aired. Protamine sulfate was given and hemostasis was obtained. The wounds were then closed with 2-0 Vicryl 3-0 Vicryl and airam. Bilateral dorsalis pedis and posterior tibial signals were present. The patient tolerated the procedure and was transferred to the PACU in satisfactory condition. JD PERKINS MD * Brief Op Note - Cesar London MD - 05/20/2022 7:28 AM EST Date: 05/20/2022 Location: [facility] OR Name: Regan Coughlin, : 1960, Diagnosis Pre-op Diagnosis * Infrarenal 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 [I71.43] Post-op Diagnosis * Infrarenal 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 [I71.43] Procedures FENESTRATED STENT GRAFT 04716 - SD VISCER AND INFRARENAL ABDOM AORTA 2 PROSTHESIS OPEN FEMORAL ARTERY EXPOSURE FOR DELIVERY OF ENDOVASCULAR PROSTHESIS 45239 - SD OPN FEM ART EXPOS DLVR EVASC PROSTH UNI Surgeons * Cesar London - Primary * Jd Perkins - Assisting Procedure Summary Anesthesia: General ASA: IV Estimated Blood Loss: Minimal Drains: Urethral Catheter 16 Fr. (Active) Implants Type Name Action Serial No. Surgical Vessel Loop LOOP VESSEL MAXI RADIOPAQ BLUE - [id number] Used, Not Implanted Surgical Vessel Loop LOOP VESSEL MAXI RADIOPAQ BLUE - [id number] Used, Not Implanted Surgical Vessel Loop LOOP VESSEL MINI RED [id number] - [id number] Used, Not Implanted Stent Zenith Fenestrated AAA Endovascular Graft Implanted Stent Zenith Fenestrated AAA Endovascular Graft Implanted Thoracic AAA Stent Graft GRAFT AAA ILIAC ZENITH - [id number] Implanted Thoracic AAA Stent Graft GRAFT AAA ILIAC ZENITH - [id number] Implanted Staff: Senior Interactive Developer: Laura Mejia RN Scrub Person: Tomasa Mathis RN Findings: aaa Complications: None; patient tolerated the procedure well. Specimens Collected: Order Name Source Comment Collection Info Order Time POTASSIUM WITH MG REFLEX For patients on dialysis to draw potassium day of surgery 05/20/2022 6:30 AM PROTHROMBIN TIME If patient on coumadin within 4 days prior. 05/20/2022 6:30 AM Wound Class: Class I: Clean Blood Products: None Prophylactic Antibiotics: Procedure appropriate prophylactic antibiotic(s) given within 1 hour of surgical incision (two hours if receiving Vancomycin or flouroquinolone) documented in this [facility]01-25-2023 Plan of care note* Care Plan - Zena Chun RN - 05/21/2022 11:00 AM EST Problem: Anxiety Goal: LTG - Patient Stated 1 Outcome: Progressing Goal: IP Editable Goal Outcome: Progressing Goal: Objective - Identify and manage anxiety triggers Outcome: Progressing Goal: Objective - Decrease panic attacks Outcome: Progressing Goal: Objective - Reduced anxiety symptoms Outcome: Progressing Goal: Objective - Identify and engage in rewarding activities daily Outcome: Progressing Goal: Objective - Maintain/resume involvement in work, family, and social activities Outcome: Progressing Goal: Objective - Jounral daily about panic and agoraphobia experiences and share with therapist/group Outcome: Progressing Goal: Objective - Implement calming and coing strategies to reduce overall anxiety and cope with panic Outcome: Progressing Goal: Objective - Share situations in which patient identified, challenged and replaced biased, fearful self-talk with reality-based, positive self-talk Outcome: Progressing The patient is Moderately Stable - Low risk of patient condition declining or worsening The patient's goals for the shift include safety The clinical goals for the shift include safety [facility]01-24-2023 Consult note* Nevaeh Anton MD - 05/20/2022 5:47 PM ESTAssociated Order(s): IP CONSULT TO UROLOGY Urology Inpatient Consultation 05/20/2022 HISTORY OF PRESENT ILLNESS: The patient is a 62 y.o. male unknown to the urology service with gross hematuria s/p AAA stent graft. Pt currently on ASA/Plavix. Upon evaluation, 16F ramirez in place draining bloody urine. Pt denies prior hx of hematuria. Denies flank pain, dysuria, or other significant urinary symptoms. In the usual sterile fashion urology resident placed a 24F way catheter over a 0.35 glidewire with return of bloody urine. 30cc placed into ramriez balloon. Work up: AF HDS WBC 5 Hb 15 Cr. 0.65 UA (p) Ucx (p) No recent imaging Of note, renal arterial ultrasound pending to rule out renal infarct. PAST MEDICAL HISTORY: Past Medical History: Diagnosis Date AAA (abdominal aortic aneurysm) Coronary artery disease 2019 2x stents, Dr. Eulalio Gutierrez at [facility] TIA (transient ischemic attack) PAST SURGICAL HISTORY: Past Surgical History: Procedure Laterality Date CORONARY STENT PLACEMENT 02/2020 x2 IR ANGIOGRAM ENDOVASCULAR AORTIC REPAIR 05/20/2022 OPEN FEMORAL ARTERY EXPOSURE FOR DELIVERY OF ENDOVASCULAR PROSTHESIS WISDOM TOOTH EXTRACTION ALLERGIES: Patient has no known allergies. CURRENT MEDICATIONS: Current Facility-Administered Medications: acetaminophen (Tylenol) tablet 650 mg, 650 mg, Oral, q6h, Cesar London MD, 650 mg at 05/20/22 1325 aspirin EC tablet 81 mg, 81 mg, Oral, Daily, Cesar London MD atorvastatin (Lipitor) tablet 80 mg, 80 mg, Oral, Nightly, Cesar London MD clopidogrel (Plavix) tablet 75 mg, 75 mg, Oral, Daily, Cesar London MD docusate sodium (Colace) capsule 100 mg, 100 mg, Oral, BID, Cesar London MD hydrALAZINE (Apresoline) injection 10 mg, 10 mg, IntraVENous, q4h PRN, Porter Burns MD HYDROmorphone (Dilaudid) injection 0.5 mg, 0.5 mg, IntraVENous, q3h PRN, Cesar London MD, 0.5 mg at 05/20/22 1716 labetalol (Normodyne,Trandate) injection 10 mg, 10 mg, IntraVENous, q4h PRN, Porter Burns MD lactated Ringer's (LR) infusion, 50 mL/hr, IntraVENous, Continuous, Jack Baltazar MD, Stopped at 05/20/22 1040 ondansetron ODT (Zofran-ODT) disintegrating tablet 4 mg, 4 mg, Oral, q8h PRN OR ondansetron (Zofran) injection 4 mg, 4 mg, IntraVENous, q6h PRN, Cesar London MD oxyCODONE (Roxicodone) immediate release tablet 5 mg, 5 mg, Oral, q4h PRN, Cesar London MD sodium chloride 0.9 % infusion, 5-250 mL/hr, IntraVENous, PRN, Cesar London MD sodium chloride 0.9% (NS) flush 10 mL, 10 mL, IntraVENous, 2 times per day, Cesar London MD sodium chloride 0.9% (NS) flush 10 mL, 10 mL, IntraVENous, PRN, Cesar London MD FAMILY HISTORY: Family History Problem Relation Name Age of Onset No Known Problems Mother No Known Problems Father Social History: Social History Tobacco Use Smoking status: Every Day Packs/day: 0.25 Years: 30.00 Pack years: 7.50 Types: Cigarettes Smokeless tobacco: Never Tobacco comments: 4 ciggs per day Substance Use Topics Alcohol use: Yes Alcohol/week: 4.0 standard drinks Types: 4 Shots of liquor per week ROS: Constitutional: negative for chills and fevers Respiratory: negative for hemoptysis and shortness of breath Cardiovascular: negative for dyspnea and syncope Gastrointestinal: negative for jaundice, nausea and vomiting Genitourinary:negative for dysuria and flank pain, +hematuria Hematologic/lymphatic: negative for bleeding and lymphadenopathy Integumentary: no new bruises or lesions Musculoskeletal:negative for muscle weakness or pain Neurological: negative for coordination problems and seizures All other systems negative PHYSICAL EXAM: VITALS: BP 136/70 Pulse 66 Temp 36.1 C (97 F) (Temporal) Resp 15 Ht 5' 4 (1.626 m) Wt 169 lb (76.7 kg) SpO2 98% BMI 29.01 kg/m General: Alert, in no acute distress Head: Normocephalic, atraumatic Neck: supple, trachea is midline, no obvious masses Respiratory: no respiratory distress, normal effort, no audible wheezes Cardiovascular: regular pulse and no cyanosis Musculoskeletal: moving all extremities, normal tone Skin: warm and dry Psych: normal mood and affect, oriented Abdomen: soft, non distended, non tender, no organomegaly, no hernias : +hematuria, 24F 3way, CBI DATA: LABS: BMP: Lab Results Component Value Date GLUCOSE 114 (H) 05/20/2022 CALCIUM 8.4 05/20/2022 NA 137 05/20/2022 K 3.9 05/20/2022 CO2 23 05/20/2022 CL 106 05/20/2022 BUN 15 05/20/2022 CREATININE 0.65 (L) 05/20/2022 CBC: Lab Results Component Value Date WBC 5.1 05/13/2022 HGB 15.4 05/13/2022 HCT 44.6 05/13/2022 MCV 97.3 05/13/2022 PLT 204 05/13/2022 RADIOLOGY: No recent imaging IMPRESSION: 62 y.o. male with gross hematuria s/p AAA graft, on ASA/Plavix. PLAN: -check PVR -at bedside, in usual sterile fashion, Urology resident placed a 24F 3way Simplastic ramirez for return of blood tinged urine -ramirez irrigated at bedside by Urology resident and cleared to light pink quickly -maintain ramirez -continue CBI; titrate to light pink color -manually irrigate ramirez every 4 hours for clot evacuation -Manually irrigate ramirez with Felipe syringe (Irrigation Kit) for clot evacuation until light pink/clear, using normal saline, every 4 hours. OK to hold if urine is yellow -Rocephin x1 given instrument with ramirez placement -Levsin PRN for bladder spasms -Cr wnl -UA (p) -check urine culture -check urine cytology -patient will need hematuria workup with cystoscopy and CT Urogram and as outpatient -hold anticoagulation, if medically feasible, until hematuria clears but will defer anticoagulationmanagement to vascular surgery -please page integration software developer resident with questions or concerns Thank you for allowing me to participate in the care of your patient. Nevaeh Anton MD Urology PGY-1 05/20/2022 5:47 PM Associated attestation - Atilio Black MD - 05/21/2022 12:56 PM EST Images from the original note were not included. [facility] - Urology [facility] Urology Patient Name: Regan Coughlin Date: 05/21/22 Gross heme CBC: Recent Labs 05/20/222034 WBC 15.4* HGB 14.2 HCT 40.2 PLT 183 BMP: Recent Labs 05/20/222 05/20/222034 NA 137 138 K 3.9 4.0 CL 106 109* CO2 BUN 15 16 CREATININE 0.65* 0.69 GLUCOSE 114* 120* Hepatic:No results for input(s): ALKPHOS, ALT, AST, PROT, BILITOT, BILIDIR in the last 72 hours. No lab exists for component: LABALBU CT: === 05/20/22 === CT ABDOMEN PELVIS WO IV CONTRAST XRAY: Abdomen: Soft, nontender, nondistended. Assesment/Plan Gross heme On AC Culture, cytology Op ct and cysto Cbi and manually irrigate to keep clot free [id number] Consult note* Nevaeh Anton MD - 05/20/2022 5:47 PM ESTAssociated Order(s): IP CONSULT TO UROLOGY Urology Inpatient Consultation 05/20/2022 HISTORY OF PRESENT ILLNESS: The patient is a 62 y.o. male unknown to the urology service with gross hematuria s/p AAA stent graft. Pt currently on ASA/Plavix. Upon evaluation, 16F ramirez in place draining bloody urine. Pt denies prior hx of hematuria. Denies flank pain, dysuria, or other significant urinary symptoms. In the usual sterile fashion urology resident placed a 24F way catheter over a 0.35 glidewire with return of bloody urine. 30cc placed into ramirez balloon. Work up: AF HDS WBC 5 Hb 15 Cr. 0.65 UA (p) Ucx (p) No recent imaging Of note, renal arterial ultrasound pending to rule out renal infarct. PAST MEDICAL HISTORY: Past Medical History: Diagnosis Date AAA (abdominal aortic aneurysm) Coronary artery disease 2019 2x stents, Dr. Eulalio Gutierrez at [facility] TIA (transient ischemic attack) PAST SURGICAL HISTORY: Past Surgical History: Procedure Laterality Date CORONARY STENT PLACEMENT 02/2020 x2 IR ANGIOGRAM ENDOVASCULAR AORTIC REPAIR 05/20/2022 OPEN FEMORAL ARTERY EXPOSURE FOR DELIVERY OF ENDOVASCULAR PROSTHESIS WISDOM TOOTH EXTRACTION ALLERGIES: Patient has no known allergies. CURRENT MEDICATIONS: Current Facility-Administered Medications: acetaminophen (Tylenol) tablet 650 mg, 650 mg, Oral, q6h, Cesar London MD, 650 mg at 05/20/22 1325 aspirin EC tablet 81 mg, 81 mg, Oral, Daily, Cesar London MD atorvastatin (Lipitor) tablet 80 mg, 80 mg, Oral, Nightly, Cesar London MD clopidogrel (Plavix) tablet 75 mg, 75 mg, Oral, Daily, Cesar London MD docusate sodium (Colace) capsule 100 mg, 100 mg, Oral, BID, Cesar London MD hydrALAZINE (Apresoline) injection 10 mg, 10 mg, IntraVENous, q4h PRN, Porter Burns MD HYDROmorphone (Dilaudid) injection 0.5 mg, 0.5 mg, IntraVENous, q3h PRN, Cesar London MD, 0.5 mg at 05/20/22 1716 labetalol (Normodyne,Trandate) injection 10 mg, 10 mg, IntraVENous, q4h PRN, Porter Burns MD lactated Ringer's (LR) infusion, 50 mL/hr, IntraVENous, Continuous, Jack Baltazar MD, Stopped at 05/20/22 1040 ondansetron ODT (Zofran-ODT) disintegrating tablet 4 mg, 4 mg, Oral, q8h PRN OR ondansetron (Zofran) injection 4 mg, 4 mg, IntraVENous, q6h PRN, Cesar London MD oxyCODONE (Roxicodone) immediate release tablet 5 mg, 5 mg, Oral, q4h PRN, Cesar London MD sodium chloride 0.9 % infusion, 5-250 mL/hr, IntraVENous, PRN, Cesar London MD sodium chloride 0.9% (NS) flush 10 mL, 10 mL, IntraVENous, 2 times per day, Cesar London MD sodium chloride 0.9% (NS) flush 10 mL, 10 mL, IntraVENous, PRN, Cesar London MD FAMILY HISTORY: Family History Problem Relation Name Age of Onset No Known Problems Mother No Known Problems Father Social History: Social History Tobacco Use Smoking status: Every Day Packs/day: 0.25 Years: 30.00 Pack years: 7.50 Types: Cigarettes Smokeless tobacco: Never Tobacco comments: 4 ciggs per day Substance Use Topics Alcohol use: Yes Alcohol/week: 4.0 standard drinks Types: 4 Shots of liquor per week ROS: Constitutional: negative for chills and fevers Respiratory: negative for hemoptysis and shortness of breath Cardiovascular: negative for dyspnea and syncope Gastrointestinal: negative for jaundice, nausea and vomiting Genitourinary:negative for dysuria and flank pain, +hematuria Hematologic/lymphatic: negative for bleeding and lymphadenopathy Integumentary: no new bruises or lesions Musculoskeletal:negative for muscle weakness or pain Neurological: negative for coordination problems and seizures All other systems negative PHYSICAL EXAM: VITALS: BP 136/70 Pulse 66 Temp 36.1 C (97 F) (Temporal) Resp 15 Ht 5' 4 (1.626 m) Wt 169 lb (76.7 kg) SpO2 98% BMI 29.01 kg/m General: Alert, in no acute distress Head: Normocephalic, atraumatic Neck: supple, trachea is midline, no obvious masses Respiratory: no respiratory distress, normal effort, no audible wheezes Cardiovascular: regular pulse and no cyanosis Musculoskeletal: moving all extremities, normal tone Skin: warm and dry Psych: normal mood and affect, oriented Abdomen: soft, non distended, non tender, no organomegaly, no hernias : +hematuria, 24F 3way, CBI DATA: LABS: BMP: Lab Results Component Value Date GLUCOSE 114 (H) 05/20/2022 CALCIUM 8.4 05/20/2022 NA 137 05/20/2022 K 3.9 05/20/2022 CO2 23 05/20/2022 CL 106 05/20/2022 BUN 15 05/20/2022 CREATININE 0.65 (L) 05/20/2022 CBC: Lab Results Component Value Date WBC 5.1 05/13/2022 HGB 15.4 05/13/2022 HCT 44.6 05/13/2022 MCV 97.3 05/13/2022 PLT 204 05/13/2022 RADIOLOGY: No recent imaging IMPRESSION: 62 y.o. male with gross hematuria s/p AAA graft, on ASA/Plavix. PLAN: -check PVR -at bedside, in usual sterile fashion, Urology resident placed a 24F 3way Simplastic ramirez for return of blood tinged urine -ramirez irrigated at bedside by Urology resident and cleared to light pink quickly -maintain ramirez -continue CBI; titrate to light pink color -manually irrigate ramirez every 4 hours for clot evacuation -Manually irrigate ramirez with Felipe syringe (Irrigation Kit) for clot evacuation until light pink/clear, using normal saline, every 4 hours. OK to hold if urine is yellow -Rocephin x1 given instrument with ramirez placement -Levsin PRN for bladder spasms -Cr wnl -UA (p) -check urine culture -check urine cytology -patient will need hematuria workup with cystoscopy and CT Urogram and as outpatient -hold anticoagulation, if medically feasible, until hematuria clears but will defer anticoagulationmanagement to vascular surgery -please page integration software developer resident with questions or concerns Thank you for allowing me to participate in the care of your patient. Nevaeh Anton MD Urology PGY-1 05/20/2022 5:47 PM Associated attestation - Atilio Black MD - 05/21/2022 12:56 PM EST Images from the original note were not included. [facility] - Urology [facility] Urology Patient Name: Regan Coughlin Date: 05/21/22 Gross heme CBC: Recent Labs 05/20/222034 WBC 15.4* HGB 14.2 HCT 40.2 PLT 183 BMP: Recent Labs 05/20/22 1652 05/20/222034 NA 137 138 K 3.9 4.0 CL 106 109* CO2 BUN 15 16 CREATININE 0.65* 0.69 GLUCOSE 114* 120* Hepatic:No results for input(s): ALKPHOS, ALT, AST, PROT, BILITOT, BILIDIR in the last 72 hours. No lab exists for component: LABALBU CT: === 05/20/22 === CT ABDOMEN PELVIS WO IV CONTRAST XRAY: Abdomen: Soft, nontender, nondistended. Assesment/Plan Gross heme On AC Culture, cytology Op ct and cysto Cbi and manually irrigate to keep clot free documented in this [facility]01-24-2023 Note* Care Coordination - Patt Hoffman RN - 05/20/2022 2:47 PM EST Care Managment Initial Assessment Date: 05/20/2022 Patient Name: Regan Coughlin : 1960 Patient Information Source of Information: Patient Cognition/Language: WFL - Within Functional Limits Permission given to speak with patient sales representative womens health/caregiver as indicated: Yes (Brother at bedside) Confirmation of Payer with patient/family: Payer Name: MMO : Confirmation of Primary Care Physician: Confirmed PCP Name: Dr Craft Seen in last 2 years?: Yes Primary Caregiver: Self If assistance needed, confirmed caregiver ready, willing and able to care for patient at discharge:Yes Confirmed with: Living Arrangements Current Residence: House Number of Floors 1 Number of Entry Steps: 2 Bed/Bath Levels: Both first floor Facility: Facility Name: Plan to Return: Yes Lives with: (Lives with brother) Support Systems: Family members Activities of Daily Living Ambulation: Independent Bathing/Dressing: Independent Elimination/Continence/Toileting: Independent Feeding: Independent Who Assists with Activities of Daily Living: Instrumental Activities of Daily Living Prescription Coverage: Yes Pharmacy Used: [facility] [address] in [place] Medication Management: Independent Transportation/Shopping: Independent Transportation Mode: Needs Assistance with Transportation at Discharge: No Meal Preparation: Independent Laundry/Cleaning: Independent Finances/Bill Paying: Independent Communication: Independent Types of Care Services/Equipment Utilized Care Services: Dialysis Type: Durable Medical Equipment: Patient's Goal/Discharge Plan Patient expects to be discharged to: Discharge Planning Actions: Continue to follow Patient's Choice Rights and [employer] and Collaborative Relationships Disclosed as Indicated for Post-Acute Care: Interdisciplinary Team Engagement: Social Work Referral for: Additional Information: IA per patient. Lives with brother. Independent ADLS/IADLS. No concerns voiced at this time. Patt Hoffman RN [id number] Note* Care Coordination - Patt Hoffman RN - 05/20/2022 2:47 PM EST Care Managment Initial Assessment Date: 05/20/2022 Patient Name: Regan Coughlin : 1960 Patient Information Source of Information: Patient Cognition/Language: WFL - Within Functional Limits Permission given to speak with patient sales representative womens health/caregiver as indicated: Yes (Brother at bedside) Confirmation of Payer with patient/family: Payer Name: MMO [place]: Confirmation of Primary Care Physician: Confirmed PCP Name: Dr Craft Seen in last 2 years?: Yes Primary Caregiver: Self If assistance needed, confirmed caregiver ready, willing and able to care for patient at discharge:Yes Confirmed with: Living Arrangements Current Residence: House Number of Floors 1 Number of Entry Steps: 2 Bed/Bath Levels: Both first floor Facility: Facility Name: Plan to Return: Yes Lives with: (Lives with brother) Support Systems: Family members Activities of Daily Living Ambulation: Independent Bathing/Dressing: Independent Elimination/Continence/Toileting: Independent Feeding: Independent Who Assists with Activities of Daily Living: Instrumental Activities of Daily Living Prescription Coverage: Yes Pharmacy Used: [facility] [address] in [place] Medication Management: Independent Transportation/Shopping: Independent Transportation Mode: Needs Assistance with Transportation at Discharge: No Meal Preparation: Independent Laundry/Cleaning: Independent Finances/Bill Paying: Independent Communication: Independent Types of Care Services/Equipment Utilized Care Services: Dialysis Type: Durable Medical Equipment: Patient's Goal/Discharge Plan Patient expects to be discharged to: Discharge Planning Actions: Continue to follow Patient's Choice Rights and [employer] and Collaborative Relationships Disclosed as Indicated for Post-Acute Care: Interdisciplinary Team Engagement: Social Work Referral for: Additional Information: IA per patient. Lives with brother. Independent ADLS/IADLS. No concerns voiced at this time. Patt Hoffman RN [id number] Nurse Note* Leo Tamayo RN - 05/20/2022 1:37 PM EST Arrived from PACU, small right groin hematoma, sanguinous drainage marked on both groins. Blood noted in ramirez. Pressure held to Right groin. Site is more soft. No new oozing at present. Dr. Burns notified of hematoma and blood in ramirez. Cont to monitor. Call light in reach. [facility] [id number] Note* Perioperative Nursing Note - Aura Rendon RN - 05/20/2022 11:58 AM EST Update to brother Bradley [id number] Note* Perioperative Nursing Note - Aura Rendon RN - 05/20/2022 11:58 AM EST Update to brother Bradley [id number] Note* Perioperative Nursing Note - Aura Rendon RN - 05/20/2022 11:[address] Trevino notified of bloody drainage to bilateral groin dressings [facility]01-24-2023 Note* Perioperative Nursing Note - Aura Rendon RN - 05/20/2022 11:[address] Trevino notified of bloody drainage to bilateral groin dressings [facility]01-24-2023 Note* Op Note - Cesar London MD - 05/20/2022 7:28 AM EST Operative report Preoperative diagnosis: Juxtarenal abdominal aortic aneurysm Postoperative diagnosis: Same Procedure: Fenestrated aortic stent graft; Z FEN 2-26-109, Z FEN 12 28-76, Z SLE 16-74, Z SLE 16-56, right renal artery 6 x 29 VBX, left renal artery 6 x 29 VBX, bilateral common femoral artery exposures Surgeons: Surya and Maddie Assistants: IMELDA and Belinda History 62-year-old gentleman who presents with a juxtarenal abdominal aortic aneurysm. We discussed treatment options and even though he was younger he favored the minimally invasive procedure and that it would allow him to get back to work sooner. He did not feel that he could be off work for the4 to 6 weeks if he had an open repair. Risk benefits and options of the surgery were discussed withhim and he agrees to proceed. Patient does have a history of coronary disease and has not been verycompliant in his postoperative care in regards to cholesterol management and smoking cessation. Procedure: Under general anesthesia he was prepped and draped in a sterile manner. Dr. Perkins and Dr. London each exposed common femoral artery in his groin proximal distal control were obtained. Dr. Perkins and Dr. London then each placed a 6 Italian sheath in the common femoral artery using using a Seldinger technique and then using a straight flush catheter and exchanged the wire out for aLunderquist wire. The Lunderquist wire was placed under direct vision to the level of the subclavian artery. A 20 mm sheath was placed up the left common femoral artery and the fenestrated The Z FEN -26-109 was placed up the right side. The outer restraint was removed from the Z FEN. Dr. Perkins then cannulated the distal aspect of the Z FEN graft and passed wires through the fenestrations into the renal arteries following these wires 7 Italian Ansell sheaths were passed into the renal arteries and we confirmed that this was in the renal artery the 6 x 29 VBX stents were placed in the in the Ansell sheaths.. At this point the remaining portion of the fenestrated Was deployed and the VBX stents were deployed in the renal arteries. These were postdilated with 10 x 2 balloons to flare the inner aspect of the stent next to the Z FEN 04-23-1976 was deployed and the Ansell sheaths and straightflush catheter were removed. The contralateral gate was cannulated on the left side a straight pigta il catheter was used with sidhu to size the length of the graft and a 16-74 was deployed above the hypogastric artery on the left side. The rest of the main body was deployed on the right and a 16-56was deployed without difficulty. A combination of a 12 mm angioplasty balloon and Coda balloon wereused to balloon all the junctions. Completion angiogram revealed good flow with no evidence of a type I endoleak. There may be a slight type II endoleak in the very proximal portion near the renal artery stents but at this point it appeared to be small something that would certainly clot on its ownthe sheaths and wires were removed from the groin. Common femoral arteries were repaired with 5-0 Prolene suture. Prior to completion the system was flushed backbled and de-aired the anastomosis werecompleted and flow was reestablished without difficulty. Hemostasis was obtained. The groins were closed with 2-0 Vicryl 3-0 Vicryl and surgical clips. Dry sterile dressings were applied and patient was transferred to the recovery area in a stable manner [facility] [id number] Note* Op Note - Jd Perkins MD - 05/20/2022 7:28 AM EST PREOPERATIVE DIAGNOSIS: Greater than 6-cm juxtarenal aortic aneurysm. POSTOPERATIVE DIAGNOSIS: Same. OPERATION: Fenestrated endovascular repair of juxtarenal aortoiliac aneurysm using modular lzyfv-rn-etdbr stent graft with bilateral renal artery stent grafts and bilateral femoral artery exposures ANESTHESIA: General endotracheal. COMPLICATIONS: None DESCRIPTION OF PROCEDURE: Due to the complexity of the operation, two attending vascular surgeons were necessary. The patient was identified and the procedure was confirmed. The abdomen, groins and thighs were prepped and draped in the usual sterile fashion. Bilateral infrainguinal groin incisions were made and carried down through the subcutaneous tissue. Dissection continued down to the inguinal ligaments, and the common femoral arteries were identified and freed from the surrounding tissues. The vessels were surrounded proximally and distally with Vesseloops for control. The patient was systemically heparinized 80-90 units/kg and redosed periodically. Bilateral 6 Italian sheaths were placed and Lunderquist wires were positioned under direct vision upeach through each sheath. We then exchanged out the left 6 Italian sheath for a 20 Italian sheath. The custom-made fenestrated main body device ZFEN P- 2-26-109 was then checked for orientation multiple times and was advanced up the right Lunderquist wire the fenestrations were lined up to the renal arteries and superior mesenteric artery and both renal arteries were cannulated with 7 Italian sheaths from the left side. The sheaths were then passed into the renal arteries and a 6 x 29 covered VBX stent was positioned on the right and a 6x 29 VBX stent was positioned on the left. The top cap was f ully deployed and ballooned using the Coda. The renal VBX stents were deployed. The aortic portion of both renal stents were flared with 10 x 2 balloons. Completion renal angiograms yielded a good result. The distal main body device ZFEN-D- 12-28-76 was oriented and deployed up the right side with proper overlap. Contralateral gate was cannulated. Pigtail marker was placed for measurements to thehypogastric. The left limb was deployed in the common iliac artery this was a ZSLE 16-74. On the right side the rest of the main body was deployed. A ZSLE 16-56 right limb extension was deployed in the right common iliac sparing the hypogastric. All junctions were ballooned with a Coda balloon. Completion angiogram revealed good flow in all limbs and both renal arteries, superior mesenteric artery and both hypogastric arteries. The sheaths and wires were removed and the femoral arteries were repaired with 5-0 Prolene sutures prior to completion they were flushed backbled and de-aired. Protamine sulfate was given and hemostasis was obtained. The wounds were then closed with 2-0 Vicryl 3-0 Vicryl and airam. Bilateral dorsalis pedis and posterior tibial signals were present. The patient tolerated the procedure and was transferred to the PACU in satisfactory condition. JD PERKINS MD [email or web address] Phone: [phone] Note* Brief Op Note - Cesar London MD - 05/20/2022 7:28 AM EST Date: 05/20/2022 Location: [facility] OR Name: Regan Coughlin, : 1960, Diagnosis Pre-op Diagnosis * Infrarenal 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 [I71.43] Post-op Diagnosis * Infrarenal 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 [I71.43] Procedures FENESTRATED STENT GRAFT 21257 - SD VISCER AND INFRARENAL ABDOM AORTA 2 PROSTHESIS OPEN FEMORAL ARTERY EXPOSURE FOR DELIVERY OF ENDOVASCULAR PROSTHESIS 26154 - SD OPN FEM ART EXPOS DLVR EVASC PROSTH UNI Surgeons * Cesar London - Primary * Jd Perkins - Assisting Procedure Summary Anesthesia: General ASA: IV Estimated Blood Loss: Minimal Drains: Urethral Catheter 16 Fr. (Active) Implants Type Name Action Serial No. Surgical Vessel Loop LOOP VESSEL MAXI RADIOPAQ BLUE - [id number] Used, Not Implanted Surgical Vessel Loop LOOP VESSEL MAXI RADIOPAQ BLUE - [id number] Used, Not Implanted Surgical Vessel Loop LOOP VESSEL MINI RED [id number] - [id number] Used, Not Implanted Stent Zenith Fenestrated AAA Endovascular Graft Implanted Stent Zenith Fenestrated AAA Endovascular Graft Implanted Thoracic AAA Stent Graft GRAFT AAA ILIAC ZENITH - [id number] Implanted Thoracic AAA Stent Graft GRAFT AAA ILIAC ZENITH - [id number] Implanted Staff: Senior Interactive Developer: Laura Mejia RN Scrub Person: Tomasa Mathis RN Findings: aaa Complications: None; patient tolerated the procedure well. Specimens Collected: Order Name Source Comment Collection Info Order Time POTASSIUM WITH MG REFLEX For patients on dialysis to draw potassium day of surgery 05/20/2022 6:30 AM PROTHROMBIN TIME If patient on coumadin within 4 days prior. 05/20/2022 6:30 AM Wound Class: Class I: Clean Blood Products: None Prophylactic Antibiotics: Procedure appropriate prophylactic antibiotic(s) given within 1 hour of surgical incision (two hours if receiving Vancomycin or flouroquinolone) [id number] Note* Op Note - Cesar London MD - 05/20/2022 7:28 AM EST Operative report Preoperative diagnosis: Juxtarenal abdominal aortic aneurysm Postoperative diagnosis: Same Procedure: Fenestrated aortic stent graft; Z FEN 2-26-109, Z FEN 12 28-76, Z SLE 16-74, Z SLE 16-56, right renal artery 6 x 29 VBX, left renal artery 6 x 29 VBX, bilateral common femoral artery exposures Surgeons: Sruya and Maddie Assistants: Vivian History 62-year-old gentleman who presents with a juxtarenal abdominal aortic aneurysm. We discussed treatment options and even though he was younger he favored the minimally invasive procedure and that it would allow him to get back to work sooner. He did not feel that he could be off work for the4 to 6 weeks if he had an open repair. Risk benefits and options of the surgery were discussed withhim and he agrees to proceed. Patient does have a history of coronary disease and has not been verycompliant in his postoperative care in regards to cholesterol management and smoking cessation. Procedure: Under general anesthesia he was prepped and draped in a sterile manner. Dr. Perkins and Dr. London each exposed common femoral artery in his groin proximal distal control were obtained. Dr. Perkins and Dr. London then each placed a 6 Italian sheath in the common femoral artery using using a Seldinger technique and then using a straight flush catheter and exchanged the wire out for aLunderquist wire. The Lunderquist wire was placed under direct vision to the level of the subclavian artery. A 20 mm sheath was placed up the left common femoral artery and the fenestrated The Z FEN 06-22-109 was placed up the right side. The outer restraint was removed from the Z FEN. Dr. Perkins then cannulated the distal aspect of the Z FEN graft and passed wires through the fenestrations into the renal arteries following these wires 7 Italian Ansell sheaths were passed into the renal arteries and we confirmed that this was in the renal artery the 6 x 29 VBX stents were placed in the in the Ansell sheaths.. At this point the remaining portion of the fenestrated Was deployed and the VBX stents were deployed in the renal arteries. These were postdilated with 10 x 2 balloons to flare the inner aspect of the stent next to the Z FEN 04-23-1976 was deployed and the Ansell sheaths and straightflush catheter were removed. The contralateral gate was cannulated on the left side a straight pigta il catheter was used with sidhu to size the length of the graft and a 16-74 was deployed above the hypogastric artery on the left side. The rest of the main body was deployed on the right and a 16-56was deployed without difficulty. A combination of a 12 mm angioplasty balloon and Coda balloon wereused to balloon all the junctions. Completion angiogram revealed good flow with no evidence of a type I endoleak. There may be a slight type II endoleak in the very proximal portion near the renal artery stents but at this point it appeared to be small something that would certainly clot on its ownthe sheaths and wires were removed from the groin. Common femoral arteries were repaired with 5-0 Prolene suture. Prior to completion the system was flushed backbled and de-aired the anastomosis werecompleted and flow was reestablished without difficulty. Hemostasis was obtained. The groins were closed with 2-0 Vicryl 3-0 Vicryl and surgical clips. Dry sterile dressings were applied and patient was transferred to the recovery area in a stable manner [facility] [id number] Note* Op Note - Jd Perkins MD - 05/20/2022 7:28 AM EST PREOPERATIVE DIAGNOSIS: Greater than 6-cm juxtarenal aortic aneurysm. POSTOPERATIVE DIAGNOSIS: Same. OPERATION: Fenestrated endovascular repair of juxtarenal aortoiliac aneurysm using modular aiwpr-xi-leqet stent graft with bilateral renal artery stent grafts and bilateral femoral artery exposures ANESTHESIA: General endotracheal. COMPLICATIONS: None DESCRIPTION OF PROCEDURE: Due to the complexity of the operation, two attending vascular surgeons were necessary. The patient was identified and the procedure was confirmed. The abdomen, groins and thighs were prepped and draped in the usual sterile fashion. Bilateral infrainguinal groin incisions were made and carried down through the subcutaneous tissue. Dissection continued down to the inguinal ligaments, and the common femoral arteries were identified and freed from the surrounding tissues. The vessels were surrounded proximally and distally with Vesseloops for control. The patient was systemically heparinized 80-90 units/kg and redosed periodically. Bilateral 6 Italian sheaths were placed and Lunderquist wires were positioned under direct vision upeach through each sheath. We then exchanged out the left 6 Italian sheath for a 20 Italian sheath. The custom-made fenestrated main body device ZFEN P- [id number] was then checked for orientation multiple times and was advanced up the right Lunderquist wire the fenestrations were lined up to the renal arteries and superior mesenteric artery and both renal arteries were cannulated with 7 Italian sheaths from the left side. The sheaths were then passed into the renal arteries and a 6 x 29 covered VBX stent was positioned on the right and a 6x 29 VBX stent was positioned on the left. The top cap was f ully deployed and ballooned using the Coda. The renal VBX stents were deployed. The aortic portion of both renal stents were flared with 10 x 2 balloons. Completion renal angiograms yielded a good result. The distal main body device ZFEN-D- [id number] was oriented and deployed up the right side with proper overlap. Contralateral gate was cannulated. Pigtail marker was placed for measurements to thehypogastric. The left limb was deployed in the common iliac artery this was a ZSLE 16-74. On the right side the rest of the main body was deployed. A ZSLE 16-56 right limb extension was deployed in the right common iliac sparing the hypogastric. All junctions were ballooned with a Coda balloon. Completion angiogram revealed good flow in all limbs and both renal arteries, superior mesenteric artery and both hypogastric arteries. The sheaths and wires were removed and the femoral arteries were repaired with 5-0 Prolene sutures prior to completion they were flushed backbled and de-aired. Protamine sulfate was given and hemostasis was obtained. The wounds were then closed with 2-0 Vicryl 3-0 Vicryl and airam. Bilateral dorsalis pedis and posterior tibial signals were present. The patient tolerated the procedure and was transferred to the PACU in satisfactory condition. JD PERKINS MD [email or web address] Phone: [phone] 389-454801-24-2023 Note* Brief Op Note - Cesar London MD - 05/20/2022 7:28 AM EST Date: 05/20/2022 Location: [facility] OR Name: Regan Coughlin, : 1960, Diagnosis Pre-op Diagnosis * Infrarenal 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 [I71.43] Post-op Diagnosis * Infrarenal 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 [I71.43] Procedures FENESTRATED STENT GRAFT 08201 - SD VISCER AND INFRARENAL ABDOM AORTA 2 PROSTHESIS OPEN FEMORAL ARTERY EXPOSURE FOR DELIVERY OF ENDOVASCULAR PROSTHESIS 68796 - SD OPN FEM ART EXPOS DLVR EVASC PROSTH UNI Surgeons * Cesar London - Primary * Jd Perkins - Assisting Procedure Summary Anesthesia: General ASA: IV Estimated Blood Loss: Minimal Drains: Urethral Catheter 16 Fr. (Active) Implants Type Name Action Serial No. Surgical Vessel Loop LOOP VESSEL MAXI RADIOPAQ BLUE - [id number] Used, Not Implanted Surgical Vessel Loop LOOP VESSEL MAXI RADIOPAQ BLUE - [id number] Used, Not Implanted Surgical Vessel Loop LOOP VESSEL MINI RED [id number] - [id number] Used, Not Implanted Stent Zenith Fenestrated AAA Endovascular Graft Implanted Stent Zenith Fenestrated AAA Endovascular Graft Implanted Thoracic AAA Stent Graft GRAFT AAA ILIAC ZENITH - [id number] Implanted Thoracic AAA Stent Graft GRAFT AAA ILIAC ZENITH - [id number] Implanted Staff: Senior Interactive Developer: Laura Mejia RN Scrub Person: Tomasa Mathis RN Findings: aaa Complications: None; patient tolerated the procedure well. Specimens Collected: Order Name Source Comment Collection Info Order Time POTASSIUM WITH MG REFLEX For patients on dialysis to draw potassium day of surgery 05/20/2022 6:30 AM PROTHROMBIN TIME If patient on coumadin within 4 days prior. 05/20/2022 6:30 AM Wound Class: Class I: Clean Blood Products: None Prophylactic Antibiotics: Procedure appropriate prophylactic antibiotic(s) given within 1 hour of surgical incision (two hours if receiving Vancomycin or flouroquinolone) [id number] Attending History and physical note* Cesar London MD - 05/20/2022 6:56 AM EST H&P reviewed. The patient was examined and there are no changes to the H&P. Interval History and Physical I have interviewed and examined the patient and reviewed the recent History and Physical. There have been no changes to the recent H&P documentation. The patient understands the planned operation and its associated risks and benefits and agrees to proceed. The surgical consent form has been signed. BP 104/69 Pulse 62 Temp 36.3 C (97.3 F) (Temporal) Resp 18 Ht 5' 4 (1.626 m) Wt 169 lb (76.7 kg) SpO2 99% BMI 29.01 kg/m Impression: aaa Plan: fenestrated aortic stent graft Electronically signed by @MEMDNR@ on @TDNR@ at @NOWNR@ Source Note - Trudy Lucas APRN - CONCRETE BLOCK MAKER - 05/13/2022 9:30 AM EST Images from the original note were not included. Addendum 05/14/22 8:30 AM: pt stated that he has completely occluded left carotid, no imaging to verify within chart. Discussed with Dr. Lodnon about anesthesia's request for imaging. Per Dr. London, if pt is 100% blocked, not sure what a repeat duplex is going to show. Anesthesia notified. Comprehensive PreSurgical History and Physical Name: Regan Coughlin : 1960 (Age-62 y.o.) Date of Service: Pt seen/examined on 05/13/2022 ASSESSMENT/PLAN: Patient is considered intermediate / high risk for this intermediate risk procedure/surgery () withno reducible risk factors. Based on the above evaluation, the benefits of the planned procedure likely exceed the risks. 1) Infrarenal 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 [I71.43] - deferred to surgeon - CBC, CMP, TS / TX 2 units, EKG - During his interview, he stated he had a TIA last year and was found to have completely occludedleft carotid. He receives most of his care at [place], so there is no vascular imaging to review. Had pt sign a release of records. Cardiology note was sent over, he has not seen cardiology since 06/2020. Dr. García's note mentions the TIA / left ICA which is under media. But no vascular imaging was included. Anesthesia notified, ideally would like imaging of the left carotid. Awaiting Dr. London input of how to proceed. 2) CAD - s/p 2 stents (PCI VERO Prox RCA 03/19/2020 2/2 STEMI of inferior wall - Dr. Eulalio Gutierrez at [facility] - cont ASA, plavix per vascular - pt denies chest pain, shortness of breath - has not seen cardiology since 06/2020 - hard copy of cardiology office visit note on chart 3) TIA - fall 2021, developed speech slurring and left arm numbness - states that his left carotid is 100% occluded, will notify anesthesia - may need imaging prior to anesthesia - CBC, EKG, BMP 4) STOP BANG + - referral entered 5) Tobacco abuse - encouraged complete cessation - instructed to not smoke DOS - CBC, EKG 6) Carotid Artery Stenosis - see above - EKG, CBC 7) Non sustained Ventricular Tachycardia - on last cardiology OV note, resolved after being taken off amiodarone, but doesn't state why he was on amiodarone? - EKG Chief Complaint: AAA History Of Present Illness: 62 y.o. male who we are asked to see/evaluate for pre-operative evaluation prior to FENESTRATED STENT GRAFT (Abdomen) [89146 CPT(R)] - NEED: ORAN ROOM NEED: 240 MINUTES OPEN FEMORAL ARTERY EXPOSURE FOR DELIVERY OF ENDOVASCULAR PROSTHESIS (Bilateral) [29469 CPT(R)] 2 stents in 2020 after STEMI. Found to have AAA at that time. Proceeding with above procedure. 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 Eulalio Gutierrez PCP Dr. Marisabel Bailey (sp?) also at [place] Denies pain, f/c, cp, sob, n/v/d No problems with anesthesia >4 mets Past Medical History: Past Medical History: No date: AAA (abdominal aortic aneurysm) No date: Coronary artery disease No date: TIA (transient ischemic attack) Past Surgical History: Past Surgical History: 02/2020: CORONARY STENT PLACEMENT Comment: x2 No date: WISDOM TOOTH EXTRACTION Medications Prior to Admission: Prior to Admission medications Medication Sig Start Date End Date Taking? Authorizing Provider aspirin 81 MG EC tablet Take 81 mg by mouth daily. Yes Historical Provider, atorvastatin (Lipitor) 80 MG tablet Take 80 mg by mouth Nightly. 03/10/22 Yes Historical Provider, clopidogrel (Plavix) 75 MG tablet Take 75 mg by mouth daily. 03/10/22 Yes Historical Provider, ANTICOAGULATION: No CHRONIC STEROID USE: No CHRONIC NARCOTIC USE: No Allergies: Patient has no known allergies. If patient has opioid allergy, is it okay to take Acetaminophen: N/A Social History: TOBACCO: reports that he has been smoking cigarettes. He has a 7.50 pack-year smoking history. He has never used smokeless tobacco. ETOH: reports current alcohol use of about 4.0 standard drinks per week. Social History Substance and Sexual Activity Drug Use Never Family History: Family History Problem Relation Name Age of Onset No Known Problems Mother No Known Problems Father REVIEW OF SYSTEMS: Pertinent positives as noted in the HPI. All other systems reviewed and negative. PHYSICAL EXAM: Vitals: BP 124/71 Pulse 72 Temp 36.4 C (97.6 F) (Temporal) Ht 1.626 m (5' 4) Wt 76.8 kg (169 lb 6.4 oz) SpO2 98% BMI 29.08 kg/m BMI Classification: Overweight (BMI 25.0-29.9) General appearance: No apparent distress, appears stated age and cooperative. HEENT: Normal cephalic, atraumatic without obvious deformity. Pupils equal, round, and reactive to light. Extra ocular muscles intact. Conjunctivae/corneas clear. Neck: No jugular venous distention. Trachea midline. Respiratory: Normal respiratory effort. Clear to auscultation, bilaterally without Rales/Wheezes/Rhonchi. Cardiovascular: Regular rate and rhythm with normal S1/S2 without murmurs, rubs or gallops. Abdomen: Soft, non-tender, non-distended with normal bowel sounds. Musculoskeletal: No clubbing, cyanosis or edema bilaterally. Full ROM of all extremities. Skin: Skin color, texture, turgor normal. No rashes or lesions. Neurologic: Neurovascularly intact without any focal sensory/motor deficits. Cranial nerves: II-XIIintact, grossly non-focal. Psychiatric: Alert and oriented, thought content appropriate, normal insight Labs: No results found for: WBC, HGB, HCT, MCV, PLT No results found for: NA, K, CL, CO2, BUN, CREATININE, GLUCOSE, CALCIUM, PROT, BILITOT, ALKPHOS, AST, ALT, LABGLOM, AGRATIO, GLOB EKG ECHO and EF:Echo 04/09/22 Left Ventricle: Left ventricle size is normal. Normal wall thickness. Normal left ventricular systolic function. The EF by visual approximation is 55%. Normal wall motion. Left Ventricle: Normal left ventricular systolic function. The EF by visual approximation is 55%. Right Ventricle: Right ventricle size is normal. Hyperdynamic systolic function. Mitral Valve: Mildly thickened leaflets. Mild annular calcification. Stress ECG: Conclusion: The stress test is normal. Stress Test: A pharmacological stress test was performed using dobutamine. Hemodynamics are adequate for diagnosis. Blood pressure demonstrated a normal response and heart rate demonstrated a normal response to stress. The patient reported no chest pain during the stress test. Labs Ordered: YES - PER PAT PROTOCOL ECG Ordered: YES - PER PAT PROTOCOL Sleep Referral Ordered: YES - POSITIVE SCREEN PER SLEEP REFERRAL PROTOCOL Electronically signed by: MARISABEL Neri CNP Date: 05/13/2022 at 10:11 AM PAT Protocol referenced includes: Anesthesia Lab Protocol Orders Perioperative Cardiovascular Risk Assessment Anesthesia Assessment Pain Assessment and Acute Pain Service Consult (if appropriate) Medical Clearance/Consult from Internal Medicine (IMS) Shower/Wash Order (for designated surgeries) EM Screen and Sleep Clinic Referral (if appropriate) [id number] History and physical note* Cesar London MD - 05/20/2022 6:56 AM EST H&P reviewed. The patient was examined and there are no changes to the H&P. Interval History and Physical I have interviewed and examined the patient and reviewed the recent History and Physical. There have been no changes to the recent H&P documentation. The patient understands the planned operation and its associated risks and benefits and agrees to proceed. The surgical consent form has been signed. BP 104/69 Pulse 62 Temp 36.3 C (97.3 F) (Temporal) Resp 18 Ht 5' 4 (1.626 m) Wt 169 lb (76.7 kg) SpO2 99% BMI 29.01 kg/m Impression: aaa Plan: fenestrated aortic stent graft Electronically signed by @MEMDNR@ on @TDNR@ at @NOWNR@ Source Note - Trudy Lucas APRN - CONCRETE BLOCK MAKER - 05/13/2022 9:30 AM EST Images from the original note were not included. Addendum 05/14/22 8:30 AM: pt stated that he has completely occluded left carotid, no imaging to verify within chart. Discussed with Dr. London about anesthesia's request for imaging. Per Dr. London, if pt is 100% blocked, not sure what a repeat duplex is going to show. Anesthesia notified. Comprehensive PreSurgical History and Physical Name: Regan Coughlin : 1960 (Age-62 y.o.) Date of Service: Pt seen/examined on 05/13/2022 ASSESSMENT/PLAN: Patient is considered intermediate / high risk for this intermediate risk procedure/surgery () withno reducible risk factors. Based on the above evaluation, the benefits of the planned procedure likely exceed the risks. 1) Infrarenal 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 [I71.43] - deferred to surgeon - CBC, CMP, TS / TX 2 units, EKG - During his interview, he stated he had a TIA last year and was found to have completely occludedleft carotid. He receives most of his care at [place], so there is no vascular imaging to review. Had pt sign a release of records. Cardiology note was sent over, he has not seen cardiology since 06/2020. Dr. García's note mentions the TIA / left ICA which is under media. But no vascular imaging was included. Anesthesia notified, ideally would like imaging of the left carotid. Awaiting Dr. London input of how to proceed. 2) CAD - s/p 2 stents (PCI VERO Prox RCA 03/19/2020 2 STEMI of inferior wall - Dr. Eulalio Gutierrez at [facility] - cont ASA, plavix per vascular - pt denies chest pain, shortness of breath - has not seen cardiology since 06/2020 - hard copy of cardiology office visit note on chart 3) TIA - fall 2021, developed speech slurring and left arm numbness - states that his left carotid is 100% occluded, will notify anesthesia - may need imaging prior to anesthesia - CBC, EKG, BMP 4) STOP BANG + - referral entered 5) Tobacco abuse - encouraged complete cessation - instructed to not smoke DOS - CBC, EKG 6) Carotid Artery Stenosis - see above - EKG, CBC 7) Non sustained Ventricular Tachycardia - on last cardiology OV note, resolved after being taken off amiodarone, but doesn't state why he was on amiodarone? - EKG Chief Complaint: AAA History Of Present Illness: 62 y.o. male who we are asked to see/evaluate for pre-operative evaluation prior to FENESTRATED STENT GRAFT (Abdomen) [07705 CPT(R)] - NEED: ORAN ROOM NEED: 240 MINUTES OPEN FEMORAL ARTERY EXPOSURE FOR DELIVERY OF ENDOVASCULAR PROSTHESIS (Bilateral) [24343 CPT(R)] 2 stents in 2019 after STEMI. Found to have AAA at that time. Proceeding with above procedure. 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 Eulalio Gutierrez PCP Dr. Marisabel Bailey (sp?) also at [place] Denies pain, f/c, cp, sob, n/v/d No problems with anesthesia >4 mets Past Medical History: Past Medical History: No date: AAA (abdominal aortic aneurysm) No date: Coronary artery disease No date: TIA (transient ischemic attack) Past Surgical History: Past Surgical History: 02/2020: CORONARY STENT PLACEMENT Comment: x2 No date: WISDOM TOOTH EXTRACTION Medications Prior to Admission: Prior to Admission medications Medication Sig Start Date End Date Taking? Authorizing Provider aspirin 81 MG EC tablet Take 81 mg by mouth daily. Yes Historical Provider, atorvastatin (Lipitor) 80 MG tablet Take 80 mg by mouth Nightly. 03/10/22 Yes Historical Provider, clopidogrel (Plavix) 75 MG tablet Take 75 mg by mouth daily. 03/10/22 Yes Historical Provider, ANTICOAGULATION: No CHRONIC STEROID USE: No CHRONIC NARCOTIC USE: No Allergies: Patient has no known allergies. If patient has opioid allergy, is it okay to take Acetaminophen: N/A Social History: TOBACCO: reports that he has been smoking cigarettes. He has a 7.50 pack-year smoking history. He has never used smokeless tobacco. ETOH: reports current alcohol use of about 4.0 standard drinks per week. Social History Substance and Sexual Activity Drug Use Never Family History: Family History Problem Relation Name Age of Onset No Known Problems Mother No Known Problems Father REVIEW OF SYSTEMS: Pertinent positives as noted in the HPI. All other systems reviewed and negative. PHYSICAL EXAM: Vitals: BP 124/71 Pulse 72 Temp 36.4 C (97.6 F) (Temporal) Ht 1.626 m (5' 4) Wt 76.8 kg (169 lb 6.4 oz) SpO2 98% BMI 29.08 kg/m BMI Classification: Overweight (BMI 25.0-29.9) General appearance: No apparent distress, appears stated age and cooperative. HEENT: Normal cephalic, atraumatic without obvious deformity. Pupils equal, round, and reactive to light. Extra ocular muscles intact. Conjunctivae/corneas clear. Neck: No jugular venous distention. Trachea midline. Respiratory: Normal respiratory effort. Clear to auscultation, bilaterally without Rales/Wheezes/Rhonchi. Cardiovascular: Regular rate and rhythm with normal S1/S2 without murmurs, rubs or gallops. Abdomen: Soft, non-tender, non-distended with normal bowel sounds. Musculoskeletal: No clubbing, cyanosis or edema bilaterally. Full ROM of all extremities. Skin: Skin color, texture, turgor normal. No rashes or lesions. Neurologic: Neurovascularly intact without any focal sensory/motor deficits. Cranial nerves: II-XIIintact, grossly non-focal. Psychiatric: Alert and oriented, thought content appropriate, normal insight Labs: No results found for: WBC, HGB, HCT, MCV, PLT No results found for: NA, K, CL, CO2, BUN, CREATININE, GLUCOSE, CALCIUM, PROT, BILITOT, ALKPHOS, AST, ALT, LABGLOM, AGRATIO, GLOB EKG ECHO and EF:Echo 04/09/22 Left Ventricle: Left ventricle size is normal. Normal wall thickness. Normal left ventricular systolic function. The EF by visual approximation is 55%. Normal wall motion. Left Ventricle: Normal left ventricular systolic function. The EF by visual approximation is 55%. Right Ventricle: Right ventricle size is normal. Hyperdynamic systolic function. Mitral Valve: Mildly thickened leaflets. Mild annular calcification. Stress ECG: Conclusion: The stress test is normal. Stress Test: A pharmacological stress test was performed using dobutamine. Hemodynamics are adequate for diagnosis. Blood pressure demonstrated a normal response and heart rate demonstrated a normal response to stress. The patient reported no chest pain during the stress test. Labs Ordered: YES - PER [facility] PROTOCOL ECG Ordered: YES - PER PAT PROTOCOL Sleep Referral Ordered: YES - POSITIVE SCREEN PER SLEEP REFERRAL PROTOCOL Electronically signed by: MARISABEL Neri CNP Date: 05/13/2022 at 10:11 AM PAT Protocol referenced includes: Anesthesia Lab Protocol Orders Perioperative Cardiovascular Risk Assessment Anesthesia Assessment Pain Assessment and Acute Pain Service Consult (if appropriate) Medical Clearance/Consult from Internal Medicine (IMS) Shower/Wash Order (for designated surgeries) EM Screen and Sleep Clinic Referral (if appropriate) documented in this [facility]01-17-2023 Telephone encounter Note* Telephone Encounter - MARISABEL Neri CNP - 05/13/2022 11:03 AM EST Pt presented to [facility] 05/13/[address] London 05/20/22. During his interview, he stated he had a TIA last year and was found to have completely occluded left carotid. He receives mostof his care at [place], so there is no vascular imaging to review. Had pt sign a release of records. Cardiology note was sent over, he has not seen cardiology since 06/2020. Dr. García's note mentionsthe TIA / left ICA which is under media. But no vascular imaging was included. Anesthesia notified,ideally would like imaging of the left carotid and how Dr. London would like to proceed? Thank you. [facility] Work Phone: [phone] Miscellaneous Notes* Telephone Encounter - MARISABEL Neri CNP - 05/13/2022 11:03 AM EST Pt presented to [facility] 05/13/[address] London 05/20/22. During his interview, he stated he had a TIA last year and was found to have completely occluded left carotid. He receives mostof his care at [place], so there is no vascular imaging to review. Had pt sign a release of records. Cardiology note was sent over, he has not seen cardiology since 06/2020. Dr. García's note mentionsthe TIA / left ICA which is under media. But no vascular imaging was included. Anesthesia notified,ideally would like imaging of the left carotid and how Dr. London would like to proceed? Thank you. [facility]* Diagnosis Onset Date Resolution Status TIA (transient ischemic attack) acute [facility] Work Phone: Evaluation note* Diagnosis Onset Date Resolution Status Transient ischemic attack ac [place] Atherosclerotic heart diseas e of [place] coronary artery without angina pectoris chronic Hyperlipidemia chronic Nicotine dependence chronic Carotid artery disease acute Pulsatile abdominal mass acu te Transient ischemic attack ac [place] Nicotine dependence chronic History of ST elevation myoc ardial infarction (STEMI) March 22, 2020 resolved Carotid artery disease acute Transient ischemic attack ac [place] Atherosclerotic heart diseas e of [place] coronary artery without angina pectoris chronic Hyperlipidemia chronic History of coronary artery stent placement March 222019 resolved Carotid artery disease acute Transient ischemic attack ac [place] Atherosclerotic heart diseas e of [place] coronary artery without angina pectoris chronic Hyperlipidemia chronic Non-sustained ventricular tachycardia March 24 020 chronic History of coronary artery stent placement March 22[address] elevation myoc ardial infarction (STEMI) March 22, 2020 resolved [facility] Work Phone: Evaluation note* Diagnosis Renal lesion- Primary Gross hematuria documented in this encounter [facility] note* Diagnosis Renal lesion- Primary Gross hematuria documented in this encounter [facility] note* Diagnosis Lower respiratory infection- Primary Other diseases of respiratory system, not elsewhere classified Subacute cough Cough SOB (shortness of breath) Shortness of breath Elevated blood pressure reading without diagnosis of hypertension documented in this encounter [facility] note* Diagnosis Onset Date Resolution Status CHF (congestive heart failure) acute Elevated troponin acute Hypertensive urgency acute Nicotine dependence chronic [facility] Work Phone: evaluation note* Diagnosis Subacute cough- Primary Cough Hemoptysis Hemoptysis, unspecified SOB (shortness of breath) Shortness of breath Chest pain on breathing Painful respiration Elevated blood pressure reading without diagnosis of hypertension History of aortic aneurysm Personal history of other diseases of circulatory system documented in this encounter [facility] note* Diagnosis Onset Date Resolution Status CHF (congestive heart failure) acute Elevated troponin acute Hypertensive urgency acute Nicotine dependence chronic Abnormal echocardiogram acut e Atrial fibrillation acute Elevated troponin acute Fatigue acute History of coronary artery stent placement March 222019 chronic [facility] Work Phone: evaluation note* Diagnosis Onset Date Resolution Status CHF (congestive heart failure) acute Elevated troponin acute Hypertensive urgency acute Nicotine dependence chronic Abnormal echocardiogram acut e Atrial fibrillation acute CHF (congestive heart failure) acute Elevated troponin acute Fatigue acute Hypertensive urgency acute Hyperlipidemia chronic History of ST elevation myoc ardial infarction (STEMI) March 22, 2020 resolved Abnormal echocardiogram acut e Atrial fibrillation acute Elevated troponin acute Fatigue acute History of coronary artery stent placement March [address] [facility] Work Phone: evaluation note* Diagnosis Coronary artery disease involving [place] heart, unspecified vessel or lesion type, unspecified whether angina present- Primary Paroxysmal atrial fibrillation (HCC) Atrial fibrillation Atherosclerotic heart disease of [place] coronary artery without angina pectoris Unspecified atrial fibrillation (HCC) documented in this encounter [facility] note* Diagnosis CAD in [place] artery- Primary Atherosclerotic heart disease of [place] coronary artery without angina pectoris Unspecified atrial fibrillation (HCC) [facility] Diagnosis Bruit (arterial) Other symptoms involving cardiovascular system Atherosclerotic heart disease of [place] coronary artery without angina pectoris Unspecified atrial fibrillation (HCC) [facility] Diagnosis Infrarenal 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 (HCC) Paroxysmal atrial fibrillation (HCC) Atrial fibrillation Atherosclerotic heart disease of [place] coronary artery without angina pectoris Unspecified atrial fibrillation (HCC) [facility] Diagnosis CAD in [place] artery- Primary CAD in [place] artery Coronary artery disease involving coronary bypass graft of [place] heart with angina pectoris (HCC) Acute post-operative pain Severe malnutrition (CMS/HCC) (HCC) Nutritional marasmus [facility] Diagnosis CAD in [place] artery- Primary [facility] Diagnosis CAD in [place] artery- Primary [facility] Diagnosis CAD in [place] artery- Primary S/P CABG (coronary artery bypass graft) Postsurgical aortocoronary bypass status [facility] Diagnosis Onset Date Resolution Status CHF (congestive heart failure) acute Elevated troponin acute Hypertensive urgency acute Nicotine dependence chronic Abnormal echocardiogram acut e Atrial fibrillation acute CHF (congestive heart failure) acute Elevated troponin acute Fatigue acute Hypertensive urgency acute Hyperlipidemia chronic History of ST elevation myoc ardial infarction (STEMI) March 22, 2020 resolved Abnormal echocardiogram acut e Atrial fibrillation acute Elevated troponin acute Fatigue acute History of coronary artery stent placement March 222019 chronic Atrial fibrillation acute Fatigue acute S/P coronary artery bypass graft x 4 acute Hyperlipidemia chronic [facility] Work Phone: Evaluation note* Diagnosis S/P CABG (coronary artery bypass graft)- Primary Postsurgical aortocoronary bypass status [facility] Diagnosis S/P CABG (coronary artery bypass graft) Postsurgical aortocoronary bypass status [facility] Diagnosis Infrarenal 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- Primary Infrarenal 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 Juxtarenal 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 Postoperative pain Other acute postoperative pain [facility] Diagnosis Juxtarenal 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- Primary [facility]* Diagnosis Juxtarenal 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 [facility]* Diagnosis Juxtarenal 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 Work Phone: Hospital Discharge instructionsAmbulatory Orders* Phase II, Outpatient Cardiac Rehab Location: None Selected [facility] Work Phone: Reason for referral (narrative)* Consultation (Routine) - Pending Review Specialty Diagnoses / Procedures Referred By Contact Referred To Contact Cardiac Rehabilitation / Cardiology Diagnoses S/P CABG (coronary artery bypass graft) Procedures SD OFFICE/OUTPATIENT NEW HIGH MDM 60 MINUTES Priscila Wahl APRN - CNP [address] [place] [address] [address] Card/Pulm Re[facility] [address] [address] Referral ID Status Reason Start Date Expiration Date Visits Requested Visits Authorized [id number] Pending Review Specialty Services Required 05/06/2023 05/05/2024 1 1 [facility] for referral (narrative)* Consultation (Routine) - Pending Review Specialty Diagnoses / Procedures Referred By Contact Referred To Contact Cardiac Rehabilitation / Cardiology Diagnoses S/P CABG (coronary artery bypass graft) Procedures SD OFFICE/OUTPATIENT NEW HIGH MDM 60 MINUTES Priscila Wahl APRN - CONCRETE BLOCK MAKER [address] [place] [address] Ach 95 Card/Pulm Rehab [address] [address] Referral ID Status Reason Start Date Expiration Date Visits Requested Visits Authorized [id number] Pending Review Specialty Services Required 05/06/2023 05/05/2024 1 1 [facility]No reason for referral information availableWOhioHealth [facility] Work Phone: Reason for visit Narrative* Consultation (Routine) - Pending Review Specialty Diagnoses / Procedures Referred By Contact Referred To Contact Cardiac Rehabilitation / Cardiology Diagnoses S/P CABG (coronary artery bypass graft) Procedures SD OFFICE/OUTPATIENT [facility] 60 MINUTES Priscila Wahl APRN - CNP [address] [place] [address] Ach 95 Card/Pulm Rehab [address] [place] [address] Referral ID Status Reason Start Date Expiration Date Visits Requested Visits Authorized [id number] Pending Review Specialty Services Required 05/06/2023 05/05/2024 1 1 [facility] Chief Complaint and Reason for Visit Chief Complaint TIA Reason for Visit TIA (transient ische emma attack) Chief Complaint TIA (cardiology) TIA TIA (cardiology) Reason for Visit TIA (transient ische emma attack) Chief Complaint TIA (cardiology) TIA TIA (cardiology) FOLLOW UP FROM [facility] STROKE - [facility] CAROTID STENOSIS Clearance to drive 2 M FU PULSATILE ABDOMINAL MASS Reason for Visit Transient ischemic a ttack Atherosclerotic heart disease of [place] coronary artery without angina pectoris Hyperlipidemia Nicotine dependence Carotid artery disease Pulsatile abdominal mass Transient ischemic attack Nicotine dependence History of ST elevation myocardial infarction (STEMI) Carotid artery disease Transient ischemic attack Atherosclerotic heart disease of [place] coronary artery without angina pectoris Hyperlipidemia History of coronary artery stent placement Carotid artery disease Transient ischemic attack Atherosclerotic heart disease of [place] coronary artery without angina pectoris Hyperlipidemia Non-sustained ventricular tachycardia History of coronary artery stent placement History of ST elevation myocardial infarction (STEMI) Chief Complaint TIA (cardiology) TIA TIA (cardiology) FOLLOW UP FROM [facility]KE - [facility] CAROTID STENOSIS Clearance to drive 2 M FU PULSATILE ABDOMINAL MASS AAA Reason for Visit Transient ischemic a ttack Atherosclerotic heart disease of [place] coronary artery without angina pectoris Hyperlipidemia Nicotine dependence Carotid artery disease Pulsatile abdominal mass Transient ischemic attack Nicotine dependence History of ST elevation myocardial infarction (STEMI) Carotid artery disease Transient ischemic attack Atherosclerotic heart disease of [place] coronary artery without angina pectoris Hyperlipidemia History of coronary artery stent placement Carotid artery disease Transient ischemic attack Atherosclerotic heart disease of [place] coronary artery without angina pectoris Hyperlipidemia Non-sustained ventricular tachycardia History of coronary artery stent placement History of ST elevation myocardial infarction (STEMI) Chief Complaint ACUTE HEART FAILURE, HYPERTENSION Reason for Visit CHF (congestive hear t failure) Elevated troponin Hypertensive urgency Nicotine dependence Chief Complaint ACUTE HEART FAILURE ACUTE HEART FAILURE ACUTE HEART FAILURE ACUTE HEART FAILURE Reason for Visit CHF (congestive hear t failure) Elevated troponin Hypertensive urgency Nicotine dependence Chief Complaint ACUTE HEART FAILURE ACUTE HEART FAILURE ACUTE HEART FAILURE ACUTE HEART FAILURE [facility] Discharge FU FU PER ROUNDSMAN E-ORDER Reason for Visit CHF (congestive hear t failure) Elevated troponin Hypertensive urgency Nicotine dependence Abnormal echocardiogram Atrial fibrillation Elevated troponin Fatigue History of coronary artery stent placement Chief Complaint ACUTE HEART FAILURE ACUTE HEART FAILURE ACUTE HEART FAILURE ACUTE HEART FAILURE [facility] Discharge FU FU PER ROUNDSMAN E-ORDER ABN ECHO, CAD, FATIGUE, [place] A-FIB Reason for Visit CHF (congestive hear t failure) Elevated troponin Hypertensive urgency Nicotine dependence Abnormal echocardiogram Atrial fibrillation CHF (congestive heart failure) Elevated troponin Fatigue Hypertensive urgency Hyperlipidemia History of ST elevation myocardial infarction (STEMI) Abnormal echocardiogram Atrial fibrillation Elevated troponin Fatigue History of coronary artery stent placement Chief Complaint ACUTE HEART FAILURE ACUTE HEART FAILURE ACUTE HEART FAILURE ACUTE HEART FAILURE [facility] Discharge FU FU PER ROUNDSMAN E-ORDER ABN ECHO, CAD, FATIGUE, [place] A-FIB S/P [facility] 03/25 CABG (SCANNED) E ORDERS Reason for Visit CHF (congestive hear t failure) Elevated troponin Hypertensive urgency Nicotine dependence Abnormal echocardiogram Atrial fibrillation CHF (congestive heart failure) Elevated troponin Fatigue Hypertensive urgency Hyperlipidemia History of ST elevation myocardial infarction (STEMI) Abnormal echocardiogram Atrial fibrillation Elevated troponin Fatigue History of coronary artery stent placement Atrial fibrillation Fatigue S/P coronary artery bypass graft x 4 Hyperlipidemia Chief Complaint Admit Date [facility] October 03, 2024 1:55p m Advance Directives Advance Directive Response Recorded Date/ Time Living Will No October 30, 2021 1 :05pm Power of [employer] Assembler No October 30, 2021 1:05pm Advance Directive Response Recorded Date/ Time Name of Medical Power of [employer] As[employer]er Regan Isbell mary Coughlin October 30, 2021 4:08pm Living Will No October 30, 2021 4 :08pm Power of [employer] Assembler Yes October 30, 2021 4:08pm Advance Directive Response Recorded Date/ Time Living Will No December 16 12:51pm Power of [employer] Assembler Yes December 16 12:51pm Name of Medical Power of [employer] Assembler Debby DavionRegan October 30, 2021 4:08pm Latest Code Status on File Code Status Date Activated Date Inactivated Comments Full Code 05/20/2022 6:30 AM 05/22/2022 8:40 PM Latest Code Status on File Code Status Date Activated Date Inactivated Comments Full Code 05/20/2022 6:30 AM 05/22/2022 8:40 PM Advance Directive Response Recorded Date/ Time Living Will No January 07, 2023 7:36pm Power of [employer] Assembler No December 7:36pm Advance Directive Response Recorded Date/ Time Living Will No January 07, 2023 11:45pm Power of [employer] Assembler No December 11:45pm Advance Directive Response Recorded Date/ Time Advance Directives on File No Octob er 2022 7:15am Advance Directives No February 16, 2023 7:15am Living Will No February 16 7:15am Power of [employer] Assembler No February 16, 2023 7:15am Latest Code Status on File Code Status Date Activated Date Inactivated Comments Full Code 03/25/2023 5:58 AM Code Status History Code Status Date Activated Date Inactivated Comments Full Code 05/20/2022 6:30 AM 05/22/2022 8:40 PM Latest Code Status on File Code Status Date Activated Date Inactivated Comments Full Code 03/25/2023 5:58 AM 04/02/2023 4:10 PM Latest Code Status on File Code Status Date Activated Date Inactivated Comments Full Code 03/25/2023 5:58 AM 04/02/2023 4:10 PM Code Status History Code Status Date Activated Date Inactivated Comments Full Code 05/20/2022 6:30 AM 05/22/2022 8:40 PM Advance Directive Response Recorded Date/ Time Advance Directives on File No Octob er 2022 6:15am Advance Directives No February 16, 2023 6:15am Living Will No February 16 6:15am Power of [employer] Assembler No February 16, 2023 6:15am Latest Code Status on File Code Status Date Activated Date Inactivated Comments Full Code 05/20/2022 6:30 AM Advance Directive Response Recorded Date/ Time Do you have a Healthcare Power of [employer] Assembler? No October 03, 2024 2:01pm Advance Directives No February 16, 2023 7:15am Summary Purpose Family History No Family History Records Found Reason for Referral Specialty Diagnoses / Procedures Referred By Contac t Referred To Contact Cardiology Diagnoses Bruit (arterial) Procedures Vascular US carotid artery duplex bilateral Alfonso Villarreal MD [address] [place] [address], [address] [place] [id number] Referral ID Status Reason Start Date Expiration Date V isits Requested Visits Authorized [id number] Pending Review 02/24/2023 02/24/2024 1 1 Specialty Diagnoses / Procedures Referred By Contac t Referred To Contact Cardiology Diagnoses Infrarenal 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 (HCC) Paroxysmal atrial fibrillation (HCC) Procedures Vascular US upper extremity arterial PVR Alfonso Villarreal MD [address] [place] [address], [address] [place] [phone] Referral ID Status Reason Start Date Expiration Date V isits Requested Visits Authorized [id number] Pending Review 02/24/2023 02/24/2024 1 1 Specialty Diagnoses / Procedures Referred By Contac t Referred To Contact Cardiology Diagnoses Juxtarenal 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 Procedures Vascular US EVAR evaluation duplex Cesar London MD [address] [facility] [address] [place] [address] Referral ID Status Reason Start Date Expiration Date Visits Requested Visits Authorized [id number] Pending Review Perform Procedure 06/04/2022 12/01/2022 1 1 Specialty Diagnoses / Procedures Referred By Contac t Referred To Contact Cardiology Diagnoses Juxtarenal 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 Procedures Vascular US EVAR evaluation duplex Cesar London MD [address] [place] [address] [address] Non-Invasive Cardiology [address] [place] [address] Referral ID Status Reason Start Date Expiration Date V isits Requested Visits Authorized [id number] Closed Perform Procedure 06/04/2022 12/01/2022 1 1 Referral ID Status Reason Start Date Expiration Date Visits Requested Visits Authorized [id number] Pending Review Perform Procedure 06/12/2022 12/09/2022 1 1 Specialty Diagnoses / Procedures Referred By Contac t Referred To Contact Radiology Diagnoses Gross hematuria Procedures CT UROGRAM w wo iv contrast Brenna Wright MD [address] [place] [address] Referral ID Status Reason Start Date Expiration Date V isits Requested Visits Authorized [id number] Pending Review 07/15/2022 01/11/2023 1 1 Additional Source Comments Goals (unrecognized section and content) Goals may be documented in a n alternate sectionGoals may be documented in an alternate sectionGoals may be documented in an alternate section Reason for Visit (unrecogniz ed section and content) Reason Onset Date Comments Other 08/05/2022 Imaging change o f location Reason Onset Date Comments Results 08/18/2022 CX Bladder Reason Onset Date Comments Other 08/27/2022 Specialty Diagnoses / Procedures Referred By Contac t Referred To Contact Radiology Diagnoses Gross hematuria Procedures CT UROGRAM w wo iv contrast Brenna Wright MD [address] [place] [address] Referral ID Status Reason Start Date Expiration Date V isits Requested Visits Authorized [id number] Authorized 07/15/2022 01/11/2023 1 1 Reason Comments Cough Symptoms started 3 w eeks ago. Mucinex/Robitussin. Shortness of Breath Reason Comments Shortness of Breath X3 weeks, treated / 10 for same Reason Comments New Patient Reason Onset Date Comments Surgery Scheduling 02/25/2023 Specialty Diagnoses / Procedures Referred By Contac t Referred To Contact Cardiology Diagnoses Bruit (arterial) Procedures Vascular US carotid artery duplex bilateral Alfonso Villarreal MD [address] [place] [address], [address] [place] [address] Referral ID Status Reason Start Date Expiration Date V isits Requested Visits Authorized [id number] Pending Review 02/24/2023 02/24/2024 1 1 Specialty Diagnoses / Procedures Referred By Contac t Referred To Contact Cardiology Diagnoses Infrarenal 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 (HCC) Paroxysmal atrial fibrillation (HCC) Procedures Vascular US upper extremity arterial PVR Alfonso Villarreal MD [address] [place] [address], [address] [place] [address] Referral ID Status Reason Start Date Expiration Date V isits Requested Visits Authorized [id number] Pending Review 02/24/2023 02/24/2024 1 1 Specialty Diagnoses / Procedures [facility] Referred To Contact Diagnoses Atherosclerotic heart disease of [place] coronary artery without angina pectoris Unspecified atrial fibrillation (HCC) Atherosclerotic heart disease of [place] coronary artery without angina pectoris [I25.10] Unspecified atrial fibrillation (HCC) [I48.91] Procedures SD CABG W/ARTERIAL GRAFT THREE ARTERIAL GRAFTS SD ECHO TRANSESOPHAG R-T 2D W/PRB IMG ACQUISJ I&R CORONARY ARTERY BYPASS GRAFT WITH ATRIAL ABLATION AND CLIP, TRANSESOPHAGEAL ECHOCARDIOGRAM Echocardiography transesophageal real-time VillarrealAlfonso sears MD [address] [place] [address], [address] [place] [address] [address] [facility] [place] [address] Referral ID Status Reason Start Date Expiration Date Visits Re quested Visits Authorized [id number] 1 1 Reason Comments Post-op Reason Comments No Show Reason Onset Date Comments Scheduling 08/14/2023 Specialty Diagnoses / Procedures [facility] Referred To Contact Diagnoses Infrarenal 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 Infrarenal 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 [I71.43] Procedures SD VISCER AND INFRARENAL ABDOM AORTA 2 PROSTHESIS SD OPN FEM ART EXPOS DLVR EVASC PROSTH UNI FENESTRATED STENT GRAFT OPEN FEMORAL ARTERY EXPOSURE FOR DELIVERY OF ENDOVASCULAR PROSTHESIS Cesar London MD [address] [place] [address] [address] [facility] [place] [address] Referral ID Status Reason Start Date Expiration Date Visits Re quested Visits Authorized [id number] 1 1 Reason Comments Post-op 1ST PO FENESTRATED S TENT GRAFT 05/20/2022 (SURYA&MADDIE) Reason Onset Date Comments Results 05/30/2022 Specialty Diagnoses / Procedures [facility] Referred To Contact Cardiology Diagnoses Juxtarenal 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 Procedures Vascular US EVAR evaluation duplex Cesar London MD [address] [place] [address] Non-Invasive Cardiology [address] [place] [phone] Referral ID Status Reason Start Date Expiration Date V isits Requested Visits Authorized [id number] Closed Perform Procedure 06/04/2022 12/01/2022 1 1 Reason Comments Procedure Cystoscopy Care Teams (unrecognized sec tion and content) Partition Notcher Relationship Specialty Start Date End Date Sophie Craft [address] [facility] [address] [place] [address] PCP - General Internal Medicine 03/26/22 Cesar London MD [address] [place] [address], [address] [place] [address] Consulting Physician Vascular Surgery 03/26/22 Brenna Wright MD [address] [place] [address] [address] [place] [address] Surgeon Urology 07/15/22 Partition Notcher Relationship Specialty Start Date End Date Sophie Craft [address] [facility] [address] [place] [phone] PCP - General Internal Medicine 03/26/22 Cesar London MD [address] [place] [address], [address] [place] [address] Consulting Physician Vascular Surgery 03/26/22 Brenna Wright MD [address] [place] [address] [address] [place] [address] Surgeon Urology 07/15/22 Partition Notcher Relationship Specialty Start Date End Date Sophie Craft PCP - General Internal Medicine 03/26/22 Cesar London MD [address] [place] [address], [address] [place] [address] Consulting Physician Vascular Surgery 03/26/22 Brenna Wright MD [address] [place] [address] Surgeon Urology 07/15/22 Partition Notcher Relationship Specialty Start Date End Date Sophie Craft PCP - General Internal Medicine 03/26/22 Cesar London MD [address] [place] [address], [address] [place] [address] Consulting Physician Vascular Surgery 03/26/22 Brenna Wright MD [address] [place] [address] Surgeon Urology 07/15/22 Team Status: Active Member Role Status Dates Dr. Lorri Quiros MD Family Provider Active Dr. Sophie Craft MD Primary Care Provider Active Team Status: Active Member Role Status Dates Dr. Sophie Craft MD Primary Care Provider Active Thomas Snell MD Emergency Provider Active Dr. Cesar Henriquez MD Admit Provider, Attending Pro vider Active Team Status: Active Member Role Status Dates Dr. Sophie Craft MD Primary Care Provider Active Thomas Snell MD Emergency Provider Active Dr. Cesar Henriquez MD Admit Provider, Other Provide r Active Dr. Roosevelt Kruse MD Attending Provider, Other Provider Active Team Status: Active Member Role Status Dates Dr. Sophie Craft MD Primary Care Provider Active Dr. Eulalio Gutierrez MD Attending Provider Active Team Status: Active Member Role Status Dates Dr. Sophie Craft MD Primary Care Provider Active Thomas Snell MD Emergency Provider Active Dr. Cesar Henriquez MD Admit Provider, Attending Provider, Other Provider Active Dr. Roosevelt Kruse MD Other Provider Active Team Status: Inactive Member Role Status Dates Dr. Sophie Craft MD Primary Care Provider Active Thomas Snell MD Emergency Provider Active Dr. Cesar Henriquez MD Admit Provider, Other Provide r Active Dr. Roosevelt Kruse MD Attending Provider Active Team Status: Inactive Member Role Status Dates Dr. Sophie Craft MD Primary Care Provider, Attendi ng Provider Active Team Status: Inactive Member Role Status Dates Dr. Sophie Craft MD Primary Care Provider, Referri ng Provider Active Gabbie Paris GEOGRAPHIC INFORMATION SYSTEMS MANAGER, GEOGRAPHIC INFORMATION SYSTEMS MANAGER-C Attending Provider Active Team Status: Inactive Member Role Status Dates Dr. Sophie Craft MD Primary Care Pro vider, Attending Provider, Referring Provider Active Team Status: Active Member Role Status Dates Dr. Sophie Craft MD Primary Care Provider, Other P rovider Active Gabbie Paris GEOGR[employer]IC INFORMATION SYSTEMS MANAGER, GEOGRAPHIC INFORMATION SYSTEMS MANAGER-C Attending Provider, Referring P rovider Active Team Status: Inactive Member Role Status Dates Dr. Sophie Craft MD Primary Care Provider, Other P rovider Active Gabbie Paris GEOGRAPHIC INFORMATION SYSTEMS MANAGER, GEOGRAPHIC INFORMATION SYSTEMS MANAGER-C Attending Provider, Referring P rovider Active Team Status: Inactive Member Role Status Dates Dr. Sophie Craft MD Primary Care Provider Active Dr. Eulalio Gutierrez MD Attending Provider, Referring Pro vider Active Partition Notcher Relationship Specialty Start Date End Date Sophie Craft PCP - General Internal Medicine 03/26/22 Cesar London MD [address] [place] [address] Consulting Physician Vascular Surgery 03/26/22 Brenna Wright MD [address] [place] [address] Surgeon Urology 07/15/22 Partition Notcher Relationship Specialty Start Date End Date Sophie Crfat PCP - General Internal Medicine 03/26/22 Cesar London MD [address] [place] [address] Consulting Physician Vascular Surgery 03/26/22 Brenna Wright MD [address] [place] [address] Surgeon Urology 07/15/22 Partition Notcher Relationship Specialty Start Date End Date Sophie Craft PCP - General Internal Medicine 03/26/22 Cesar London MD [address] [place] [address] Consulting Physician Vascular Surgery 03/26/22 Brenna Wright MD [address] [place] [address] Surgeon Urology 07/15/22 Partition Notcher Relationship Specialty Start Date End Date Sophie Craft [address] [place] [phone] PCP - General Internal Medicine 03/10/23 Cesar London MD [address] [place] [address] Consulting Physician Vascular Surgery 03/26/22 Brenna Wright MD [address] [place] [address] Surgeon Urology 07/15/22 Partition Notcher Relationship Specialty Start Date End Date Sophie Craft [address] [place] [phone] PCP - General Internal Medicine 03/10/23 Cesar London MD [address] [place] [address] Consulting Physician Vascular Surgery 03/26/22 Brenna Wright MD [address] [place] [address] Surgeon Urology 07/15/22 Partition Notcher Relationship Specialty Start Date End Date Sophie Craft [address] [place] [phone] PCP - General Internal Medicine 03/10/23 Cesar London MD [address] [place] [address] Consulting Physician Vascular Surgery 03/26/22 Brenna Wright MD [address] [place] [address] Surgeon Urology 07/15/22 Partition Notcher Relationship Specialty Start Date End Date Sophie Craft [address] [place] [address] PCP - General Internal Medicine 03/10/23 Cesar London MD [address] [place] [address] Consulting Physician Vascular Surgery 03/26/22 Brenna Wright MD [address] [place] [address] Surgeon Urology 07/15/22 Partition Notcher Relationship Specialty Start Date End Date Sophie Craft [address] [place] [address] PCP - General Internal Medicine 03/10/23 Cesar London MD [address] [place] [address] Consulting Physician Vascular Surgery 03/26/22 Brenna Wright MD [address] [place] [address] Surgeon Urology 07/15/22 Partition Notcher Relationship Specialty Start Date End Date Sophie Craft [address] [place] [phone] PCP - General Internal Medicine 03/10/23 Cesar London MD [address] [place] [address] Consulting Physician Vascular Surgery 03/26/22 Brenna Wright MD [address] [place] [address] Surgeon Urology 07/15/22 Partition Notcher Relationship Specialty Start Date End Date Sophie Craft [address] [place] [address] PCP - General Internal Medicine 03/10/23 Cesar London MD [address] [place] [address] Consulting Physician Vascular Surgery 03/26/22 Brenna Wright MD [address] [place] [address] Surgeon Urology 07/15/22 Partition Notcher Relationship Specialty Start Date End Date Sophie Craft [address] [place] [phone] PCP - General Internal Medicine 03/10/23 Cesar London MD [address] [place] [address] Consulting Physician Vascular Surgery 03/26/22 Brenna Wright MD [address] [place] [address] Surgeon Urology 07/15/22 Partition Notcher Relationship Specialty Start Date End Date Sophie Craft [address] [place] [phone] PCP - General Internal Medicine 03/10/23 Cesar London MD [address] [place] [address] Consulting Physician Vascular Surgery 03/26/22 Brenna Wright MD [address] [place] [address] Surgeon Urology 07/15/22 Partition Notcher Relationship Specialty Start Date End Date Sophie Craft [address] [place] [address] PCP - General Internal Medicine 03/10/23 Cesar London MD [address] [place] [address] Consulting Physician Vascular Surgery 03/26/22 Brenna Wright MD [address] [place] [address] Surgeon Urology 07/15/22 Team Status: Inactive Member Role Status Dates Dr. Sophie Craft MD Primary Care Provider Active Gabbie Paris GEOGRAPHIC INFORMATION SYSTEMS MANAGER, GEOGRAPHIC INFORMATION SYSTEMS MANAGER-C Attending Provider, Obey rajput Active Partition Notcher Relationship Specialty Start Date End Date Sophie Craft [address] [place] [address] PCP - General Internal Medicine 03/10/23 Cesar London MD [address] [place] [address] Consulting Physician Vascular Surgery 03/26/22 Brenna Wright MD [address] [place] [address] Surgeon Urology 07/15/22 Partition Notcher Relationship Specialty Start Date End Date Sophie Craft [address] [place] [phone] PCP - General Internal Medicine 03/10/23 Cesar London MD [address] [place] [address] Consulting Physician Vascular Surgery 03/26/22 Brenna Wright MD [address] [place] [address] Surgeon Urology 07/15/22 Partition Notcher Relationship Specialty Start Date End Date Sophie Craft [address] [place] [phone] PCP - General Internal Medicine 03/10/23 Cesar London MD [address] [place] [address] Consulting Physician Vascular Surgery 03/26/22 Brenna Wright MD [address] [place] [address] Surgeon Urology 07/15/22 Partition Notcher Relationship Specialty Start Date End Date Sophie Craft [address] [place] [phone] PCP - General Internal Medicine 03/26/22 Cesar London MD [address] [place] [address] Consulting Physician Vascular Surgery 03/26/22 Partition Notcher Relationship Specialty Start Date End Date Sophie Craft [address] [place] [phone] PCP - General Internal Medicine 03/26/22 Cesar London MD [address] [place] [address], [address] [place] [address] Consulting Physician Vascular Surgery 03/26/22 Partition Notcher Relationship Specialty Start Date End Date Sophie Craft [address] [place] [address] PCP - General Internal Medicine 03/26/22 Cesar London MD [address] [place] [address], [address] [place] [address] Consulting Physician Vascular Surgery 03/26/22 Partition Notcher Relationship Specialty Start Date End Date Sophie Craft [address] [place] [address] PCP - General Internal Medicine 03/26/22 Cesar London MD [address] [place] [address], [address] [place] [address] Consulting Physician Vascular Surgery 03/26/22 Partition Notcher Relationship Specialty Start Date End Date Sophie Craft [address] [place] [address] PCP - General Internal Medicine 03/26/22 Cesar London MD [address] [place] [address], [address] [place] [address] Consulting Physician Vascular Surgery 03/26/22 Partition Notcher Relationship Specialty Start Date End Date Sophie Craft [address] [place] [address] PCP - General Internal Medicine 03/26/22 Cesar London MD [address] [place] [address], [address] [place] [address] Consulting Physician Vascular Surgery 03/26/22 Partition Notcher Relationship Specialty Start Date End Date Sophie Craft [address] [place] [address] PCP - General Internal Medicine 03/26/22 Cesar London MD [address] [place] [address], [address] [place] [address] Consulting Physician Vascular Surgery 03/26/22 Partition Notcher Relationship Specialty Start Date End Date Sophie Craft [address] [place] [address] PCP - General Internal Medicine 03/26/22 Cesar London MD [address] [place] [address], [address] [place] [address] Consulting Physician Vascular Surgery 03/26/22 Partition Notcher Relationship Specialty Start Date End Date Sophie Craft [address] [place] [address] PCP - General Internal Medicine 03/26/22 Cesar London MD [address] [place] [address], [address] [place] [address] Consulting Physician Vascular Surgery 03/26/22 Partition Notcher Relationship Specialty Start Date End Date Sophie Craft [address] [place] [address] PCP - General Internal Medicine 03/26/22 Cesar London MD [address] [place] [address], [address] [place] [address] Consulting Physician Vascular Surgery 03/26/22 Brenna Wright MD [address] [place] [address]. [address] [place] [address] Surgeon Urology 07/15/22 Team Status: Active Member Role Status Dates Dr. Sophie Craft MD Primary Care Provider Active Team Status: Inactive Member Role Status Dates Dr. Sophie Craft MD Primary Care Provider Active Start: October 03, 2024 End: October 03, 2024 Dr. Rohit Greene , DO Emergency Provider Active Start: October 03, 2024 End: October 03, 2024 Source Comments (unrecognize d section and content) In the event this informatio n is protected by the Federal Confidentiality of Alcohol and Drug Abuse Patient Records regulations: The Federal rules restrict any use of the information to criminally investigate or prosecute any alcohol or drug abuse patient.[facility] the event this information is protected by the Federal Confidentiality of Alcohol and Drug Abuse Patient Records regulations: The Federal rules restrict any use of the information to criminally investigate or prosecute any alcohol or drug abuse patient.[facility] (unrecognized sect ion and content) No Status Records FoundNo Status Records FoundNo Status Records Found INFORMATION SOURCE (unrecogn ized section and content) DATE CREATED AUTHOR 01/09/2023 [facility] DATE CREATED AUTHOR AUTHOR'S ORGANIZ ATION 02/23/2023 [facility] DATE CREATED AUTHOR AUTHOR'S ORGANIZ ATION 08/16/2023 [facility] Scheduled Active and Recently Administ ered Medications (unrecognized section and content) Medication Order 03/31/2023 04/01/2023 04/02/2023 acetaminophen (Tylenol) tablet 1,000 mg 1,000 mg, Oral, Every 8 hours, First dose on Thu03/25/23 at 1200, Recovery & On Unit 0516 (Given - Provider: Yajaira Chowdhury RN)1146 (Given - Provider: Deon Monge RN)2006 (Given - Provider: Karissa Andino RN) 0400 (Not Given - Provider: Karissa Andino RN - Reason: Patient/family refused)1156 (Given - Provider: Michael Garvey, SHWETA)2018 (Given - Provider: Karissa Andino, SHWETA) 0431 (Given - Provider: Blanca Samson RN)1200 (Not Given - Provider: Michael Garvey RN - Reason: Patient/family refused) amiodarone (Pacerone) tablet 400 mg 400 mg, Oral, 2 times daily, First dose on Thu03/31/23 at 0900 0825 (Given - Provider: Deon Monge RN)2007 (Given - Provider: Karissa Andino, SHWETA) 0849 (Given - Provider: Michael Garvey, SHWETA)2018 (Given - Provider: Karissa Andino, SHWETA) 0808 (Given - Provider: Michael Garvey RN) amLODIPine (Norvasc) tablet 5 mg 5 mg, Oral, Daily, First dose on Thu03/27/23 at 0900 0825 (Given - Provider: Deon Monge RN) 0849 (Given - Provider: Michael Garvey RN) 0808 (Given - Provider: Michael Garvey, SHWETA) apixaban (Eliquis) tablet 5 mg 5 mg, Oral, 2 times daily, First dose on Thu04/01/23 at 0900, Anticoagulant 0849 (Given - Provider: Michael Garvey RN)2018 (Given - Provider: Karissa Andino, SHWETA) 0808 (Given - Provider: Michael Garvey, SHWETA) aspirin EC tablet 81 mg 81 mg, Oral, Daily, First dose on Thu03/26/23 at 0900, Do not crush, chew, or split. 0825 (Given - Provider: Deon Monge RN) 0849 (Given - Provider: Michael Garvey RN) 0808 (Given - Provider: Michael Garvey, SHWETA) atorvastatin (Lipitor) tablet 80 mg 80 mg, Oral, Nightly, First dose on Thu03/26/23 at 2100 2006 (Given - Provider: Karissa Andino, SHWETA) 2018 (Given - Provider: Karissa Andino, SHWETA) folic acid (Folvite) tablet 1 mg 1 mg, Oral, Daily, First dose on Thu03/26/23 at 0900 0825 (Given - Provider: Deon Monge RN) 0850 (Given - Provider: Michael Garvey, RN) 0808 (Given - Provider: Michael Garvey, SHWETA) furosemide (Lasix) injection 40 mg (CANCELED) 40 mg, IntraVENous, Daily, First dose (after last modification) on Thu03/31/23 at 0900 0825 (Given - Provider: Deon Monge RN) furosemide (Lasix) tablet 40 mg 40 mg, Oral, Daily, First dose on Thu04/01/23 at 0900 0849 (Given - Provider: Michael Garvey, SHWETA) 0808 (Given - Provider: Michael Garvey, SHWETA) heparin injection 5,000 Units (CANCELED) 5,000 Units, SubCUTAneous, 2 times daily, First dose on Thu03/26/23 at 0900 0824 (Given - Provider: Deon Monge RN)2006 (Given - Provider: Karissa Andino, SHWETA) hydrALAZINE (Apresoline) tablet 50 mg 50 mg, Oral, 3 times daily, First dose (after last modification) on Thu03/28/23 at 0900, On hold since Thu04/01/2023 at 0719 until manually unheld 0825 (Given - Provider: Deon Monge RN)1400 (Not Given - Provider: Deon Monge RN - Reason: Contraindicated - Comment: okay to hold per Alyson LAND)2007 (Given - Provider: Karissa Andino RN) 0719 (Held by provider - Provider: MARISABEL Mcclelland CNP - Reason: Change in vital signs)0900 (Dose Auto Held - Provider: MARISABEL Mcclelland CNP)1400 (Dose Auto Held - Provider: MARISABEL Mcclelland CNP)2100 (Dose Auto Held - Provider: MARISABEL Mcclelland CNP) 0900 (Dose Auto Held - Provider: MARISABEL Mcclelland CNP)1610 (Unheld by provider - Provider: Automatic Discharge Provider) hydrocortisone 1 % cream Topical, 2 times daily, First dose on Thu03/31/23 at 1445 1627 (Given - Provider: Deon Monge RN)2007 (Given - Provider: Karissa Andino, SHWETA) 09 (Given - Provider: Michael Garvey, SHWETA)2018 (Given - Provider: Karissa Andino RN) 08 (Given - Provider: Michael Garvey, SHWETA) ipratropium-albuterol (Duo-Neb) 0.5-2.5 mg/3 mL nebulizer solution 3 mL (CANCELED) 3 mL, Nebulization, 2 times daily, First dose (after last modification) on Thu03/29/23 at 2000, Recovery & On Unit 0820 (Given - Provider: Zena Acevedo RCP)1609 (Given - Provider: Zena Acevedo RCP) 0809 (Given - Provider: Karla Floyd RCP) Lidocaine 4 % patch 1 patch 1 patch, Topical, Administer over 12 Hours, Daily, First dose on Thu03/25/23 at 1200, Recovery & On Unit, Cut in half and place on both sides of the incision. Patch may remain in place for up to 12 hours in any 24 hour period. 0824 (Medication Applied - Provider: Deon Monge RN)2023 (Medication Removed - Provider: Karissa Andino RN) 0856 (Medication Applied - Provider: Michael Garvey, SHWETA)2055 (Medication Removed - Provider: Karissa Andino RN) 0900 (Not Given - Provider: Michael Garvey, SHWETA - Reason: Patient/family refused) metoprolol tartrate (Lopressor) tablet 25 mg 25 mg, Oral, 2 times daily, First dose (after last modification) on Thu03/30/23 at 2100, Hold for SBP less than 105 and/or MAPs less than 65 and/or HR less than 60 0825 (Given - Provider: Deon Monge RN)2007 (Given - Provider: Karissa Andino RN) 0849 (Given - Provider: Michael Garvey, SHWETA)2018 (Given - Provider: Karissa Andino, SHWETA) 0808 (Given - Provider: Michael Garvey, RN) mirtazapine (Remeron Pushpa-Tab) disintegrating tablet 15 mg 15 mg, Oral, Nightly, First dose on Thu03/30/23 at 2100, Remove from blister pack and dissolve tablet on tongue. Do not chew, crush, or split. 2007 (Given - Provider: Karissa Andino RN) 2018 (Given - Provider: Karissa Andino, SHWETA) pantoprazole (ProtoNix) EC tablet 40 mg 40 mg, Oral, Daily before breakfast, First dose on Yue 03/26/23 at 0700, Do not crush, chew, or split. 0516 (Given - Provider: Yajaira Chowdhury RN) 06 (Given - Provider: Karissa Andino, SHWETA) 06 (Given - Provider: Blanca Samson RN) polyethylene glycol (PEG) 3350 (Miralax) packet 17 g 17 g, Oral, Daily, First dose on Thu03/25/23 at 1200, Recovery & On Unit, Bowel Regimen - for prevention of constipation. 09 (Not Given - Provider: Deon Monge RN - Reason: Other - Comment: patient having regular bowel movements) 09 (Not Given - Provider: Michael Garvey RN - Reason: Other) 09 (Not Given - Provider: Michael Garvey RN - Reason: Patient/family refused) potassium chloride CR (Klor-Con M10) ER tablet 40 mEq 40 mEq, Oral, Daily, First dose on Thu03/29/23 at 0900, Best given with food and plenty of water to minimize gastric irritation. Do not crush or chew. 0825 (Given - Provider: Deon Monge RN) 0849 (Given - Provider: Michael Garvey RN) 0808 (Given - Provider: Michael Garvey RN) potassium chloride CR (Klor-Con M10) ER tablet 40 mEq 40 mEq, Oral, Daily, First dose on Thu04/03/23 at 0900, For 7 doses, Best given with food and plenty of water to minimize gastric irritation. Do not crush or chew. senna-docusate sodium (Senokot-S) 8.6-50 MG tablet 2 tablet 2 tablet, Oral, Nightly, First dose on Thu03/25/23 at 2100, Recovery & On Unit, Bowel Regimen - for prevention of constipation. 1999 (Not Given - Provider: Karissa Sina, RN - Reason: Patient/family refused) 2100 (Not Given - Provider: Karissa Andino RN - Reason: Patient/family refused) sodium chloride 0.9% (NS) flush 10 mL 10 mL, IntraVENous, Every 12 hours scheduled (2 times per day), First dose on Thu03/25/23 at 2100, Recovery & On Unit 0827 (Given - Provider: Deon Monge, SHWETA)2007 (Given - Provider: Karissa Andino, SHWETA) 0900 (Not Given - Provider: Michael Garvey RN - Reason: Other)2018 (Given - Provider: Karissa Andino RN) 0900 (Not Given - Provider: Michael Garvey, SHWETA - Reason: Patient/family refused) thiamine (Vitamin B1) tablet 100 mg 100 mg, Oral, Daily, First dose on Thu03/26/23 at 0900 0825 (Given - Provider: Deon Monge RN) 0849 (Given - Provider: Michael Garvey, SHWETA) 0808 (Given - Provider: Michael Garvey RN) Continuous Medication Order 03/31/2023 04/01/2023 04/02/2023 amiodarone (Nexterone) 450 mg in dextrose 5 % 250 mL (1.8 mg/mL) infusion (CANCELED) 0.5 mg/min (16.6667 mL/hr, rounded to 16.67 mL/hr), IntraVENous, Continuous, Starting on Thu03/31/23 at 0345, For 18 hours, Use in-line filter. 0345 (Rate/Dose Change - Provider: Yajaira Chowdhury RN)0701 (Stopped - Provider: Yajaira Chowdhury RN) amiodarone (Nexterone) 450 mg in dextrose 5 % 250 mL (1.8 mg/mL) infusion (CANCELED)(Linked Group 1) 1 mg/min (33.3333 mL/hr, rounded to 33.3 mL/hr), IntraVENous, Continuous, Starting on Thu03/31/23 at 0644, Use in-line filter. 0701 (New Bag - Provider: Yajaira Chowdhury RN)0825 (Stopped - Provider: Deon Monge RN) PRN Medication Order 03/31/2023 04/01/2023 04/02/2023 calcium gluconate 2000 mg in 100 mL IVPB premix 2,000 mg, IntraVENous, at 50 mL/hr, Administer over 2 Hours, PRN, ionized calcium less than 4.3, Starting on Thu03/25/23 at 1150, Recovery & On Unit, Give 2000 mg for ionized calcium less than 4.3 premix bag 0824 (New Bag - Provider: Deon Monge, RN)1024 (Stopped - Provider: Deon Monge RN) dextrose 5 % infusion 100 mL/hr, IntraVENous, PRN, Blood sugar less than 70mg/dL, Starting on Thu03/25/23 at 1150, Recovery & On Unit, Start infusion following administration of dextrose 50% or glucagon. dextrose 50 % solution 12.5 g 12.5 g, IntraVENous, PRN, low blood sugar, Blood glucose less than 70 mg/dL and patient NOT ALERT or NPO., Starting on Thu03/25/23 at 1150, Recovery & On Unit, If patient does not respond within 5 minutes, repeat dose x1. Start D5W at 100 mL/hour until ordering provider can be reached. Repeat blood glucose in 15 minutes. If blood glucose is less than 70 mg/dL, repeat treatment and recheck blood glucose in 15 minutes x2. If using Glucostabilizer, dose as instructed per system. glucagon (human recombinant) injection 1 mg 1 mg, IntraMUSCular, PRN, low blood sugar, Blood glucose less than 70 mg/dL and patient NOT ALERT or NPO and does not have IV access., Starting on Thu03/25/23 at 1150, Recovery & On Unit, After administration, attempt intravenous access and start D5W at 100 mL/hr. Repeat blood glucose in 15 minutes x2 and notify provider. glucose oral gel 15 g 15 g, Oral, As needed, low blood sugar, Starting on Thu03/25/23 at 1150, Recovery & On Unit, If blood glucose less than 50 mg/dL and patient ALERT and NOT NPO, give 2 tubes glucose gel. If blood glucose less than 70 mg/dL and patient ALERT and NOT NPO, give 1 tube glucose gel. Repeat blood glucose in 15 minutes. If blood glucose is less than 70 mg/dL, repeat treatment and recheck blood glucose in 15 minutes x2 and notify provider. ipratropium-albuterol (Duo-Neb) 0.5-2.5 mg/3 mL nebulizer solution 3 mL 3 mL, Nebulization, 2 times daily PRN, wheezing, Starting on Thu04/01/23 at 1400, Recovery & On Unit magnesium hydroxide (Milk of Magnesia) 400 MG/5ML suspension 30 mL 30 mL, Oral, Daily PRN, constipation, Starting on Thu03/25/23 at 1150, Recovery & On Unit, 1st line for treatment of constipation - give scheduled if no bowel movement in past 24 hours magnesium sulfate IVPB 4,000 mg(Linked Group 2) 4,000 mg, IntraVENous, at 25 mL/hr, Administer over 4 Hours, As needed, Per Magnesium Replacement Protocol, Starting on Thu03/25/23 at 1150, Recovery & On Unit, Mg Lab Replacement Action 1.4-1.6 2 gram IVPB x 1 doses 1.0-1.3 4 gram IVPB x 1 doses Less than 1.0 CALL PHYSICIAN and 4 gram IVPB x 1 doses Infuse at 1 gram/hr. Repeat Mag level next AM. Not for use in Patients with CrCl less than 30 mL/min. magnesium sulfate IVPB premix 2,000 mg(Linked Group 2) 2,000 mg, IntraVENous, at 25 mL/hr, Administer over 2 Hours, As needed, Per Magnesium Replacement Protocol, Starting on Thu03/25/23 at 1150, Recovery & On Unit, Mg Lab Replacement Action 1.4-1.6 2 gram IVPB x 1 doses 1.0-1.3 4 gram IVPB x 1 doses Less than 1.0 CALL PHYSICIAN and 4 gram IVPB x 1 doses Infuse at 1 gram/hr. Repeat Mag level next AM. Not for use in Patients with CrCl less than 30 mL/min. ondansetron (Zofran) injection 4 mg(Linked Group 3) 4 mg, IntraVENous, Every 6 hours PRN, nausea, vomiting, Starting on Thu03/25/23 at 1150, Recovery & On Unit, 1st Line. Give IV if patient is unable to take orally. If inadequate response within 60 minutes, proceed to next-line agent or contact provider if no further options ordered. ondansetron ODT (Zofran-ODT) disintegrating tablet 4 mg(Linked Group 3) 4 mg, Oral, Every 8 hours PRN, nausea, vomiting, Starting on Thu03/25/23 at 1150, Recovery & On Unit, 1st Line. If inadequate response within 60 minutes, proceed to next-line agent or contact provider if no further options ordered. Patient should allow tablet to dissolve on tongue. Do not remove from blister pack until just before administering. oxyCODONE (Roxicodone) immediate release tablet 5 mg(Linked Group 4) 5 mg, Oral, Every 6 hours PRN, severe pain (7-10), Starting on Thu03/31/23 at 0642 potassium chloride 20 mEq in sodium chloride 0.9 % 250 mL IVPB(Linked Group 5) 20 mEq, IntraVENous, at 130 mL/hr, Administer over 2 Hours, Every 8 hours PRN, hypokalemia, Starting on Thu03/25/23 at 1150, Recovery & On Unit, For Peripheral Line Use K Lab Replacement Action 3.1-3.5 20 mEq IVPB x 1 doses 2.7-3.0 40 mEq IVPB x 1 doses less than 2.7 CALL PROVIDER and administer 40 mEq IVPB x 1 dose Infuse at 10 mEq/hr Repeat Potassium lab 1 hour after administration. Protocol not for use in Patients with CrCl less than 30mL/min potassium chloride 40 mEq in NS 500 mL IVPB (premix)(Linked Group 5) 40 mEq, IntraVENous, at 125 mL/hr, Administer over 4 Hours, 3 times daily PRN, hypokalemia, Starting on Thu03/25/23 at 1150, Recovery & On Unit, For Peripheral Line Use. K Lab Replacement Action 3.1-3.5 20 mEq IVPB x 1 doses 2.7-3.0 40 mEq IVPB x 1 doses less than 2.7 CALL PROVIDER and administer 40 mEq IVPB x 1 dose Infuse at 10 mEq/hr Repeat Potassium lab 1 hour after administration. Protocol not for use in Patients with CrCl less than 30mL/min potassium chloride CR (Klor-Con M10) ER tablet 20 mEq 20 mEq, Oral, PRN, Hypokalemia, Starting on Yue 03/26/23 at 0000, Phase II/On Unit, If patient is intubated or not tolerating PO use PRN IV replacement protocol Potassium level Dose LESS than 3.0 = Give 20 mEq x 3 doses 3.0-3.6 = Give 20 mEq x 2 doses Recheck potassium level 2 hour after replacement given, place order for lab under [place] If potassium level LESS than 3 after 1st replacement: Call surgeon. Do not crush or break. Do not crush or chew. potassium chloride IVPB 20 mEq(Linked Group 5) 20 mEq, IntraVENous, at 50 mL/hr, Administer over 1 Hours, 3 times daily PRN, hypokalemia, Starting on Thu03/25/23 at 1150, Recovery & On Unit, For Central Line Use Only K Lab Replacement Action 3.1-3.5 20 mEq IVPB x 1 doses 2.7-3.0 20 mEq IVPB x 2 doses (40 mEq Total) less than 2.7 CALL PROVIDER and administer 20 mEq IVPB x 2 doses (40 mEq Total) Infuse at 20 mEq/hr Repeat Potassium lab 1 hour after final administration. Protocol not for use in Patients with CrCl less than 30mL/min For central line administration only. simethicone (Mylicon) chewable tablet 80 mg 80 mg, Oral, 4 times daily PRN, flatulence, Starting on Thu03/31/23 at 0015 0825 (Given - Provider: Deon Monge RN) sodium chloride 0.9 % infusion 5-250 mL/hr, IntraVENous, PRN, if patient receiving piggyback infusions and maintenance fluids are not ordered OR KVO fluids to protect IV site / prevent frequent line interruptions/ long duration, Starting on Thu03/25/23 at 1150, Recovery & On Unit, For piggyback infusion, administer at same rate as piggyback for a total of 25 mL. Enter 25 mL into dose field and piggyback rate into rate field of order. If piggyback is infusing at a rate less than 100 mL/hr, enter 25 mL into dose field and 100 mL/hr into rate field of order. For KVO fluids, enter rate of 20 mL/hr or less into rate field of order. sodium chloride 0.9 % infusion 250 mL/hr, IntraVENous, Administer over 10 Minutes, As needed, For use in priming line prior to transfusion (prime via gravity) and flush line post transfusion, Starting on Thu03/27/23 at 0255, For 1 dose, For use in priming line prior to transfusion (prime via gravity) and flush line post transfusion ONLY. Discontinue once line has been cleared of remaining blood product. sodium chloride 0.9% (NS) flush 10 mL 10 mL, IntraVENous, PRN, line care, Starting on Thu03/25/23 at 1150, Recovery & On Unit, After every IV line use Linked Groups Order Group 1: amiodarone (Nexterone) 450 mg in dextrose 5 % 250 mL (1.8 mg/mL) infusion (CANCELED)Jump to med 1 mg/min (33.3333 mL/hr, rounded to 33.3 mL/hr), IntraVENous, Continuous, Starting on Thu03/31/23 at 0644, Use in-line filter. Group 2: magnesium sulfate IVPB premix 2,000 mgJump to med 2,000 mg, IntraVENous, at 25 mL/hr, Administer over 2 Hours, As needed, Per Magnesium Replacement Protocol, Starting on Thu03/25/23 at 1150, Recovery & On Unit, Mg Lab Replacement Action 1.4-1.6 2 gram IVPB x 1 doses 1.0-1.3 4 gram IVPB x 1 doses Less than 1.0 CALL PHYSICIAN and 4 gram IVPB x 1 doses Infuse at 1 gram/hr. Repeat Mag level next AM. Not for use in Patients with CrCl less than 30 mL/min. Or magnesium sulfate IVPB 4,000 mgJump to med 4,000 mg, IntraVENous, at 25 mL/hr, Administer over 4 Hours, As needed, Per Magnesium Replacement Protocol, Starting on Thu03/25/23 at 1150, Recovery & On Unit, Mg Lab Replacement Action 1.4-1.6 2 gram IVPB x 1 doses 1.0-1.3 4 gram IVPB x 1 doses Less than 1.0 CALL PHYSICIAN and 4 gram IVPB x 1 doses Infuse at 1 gram/hr. Repeat Mag level next AM. Not for use in Patients with CrCl less than 30 mL/min. Group 3: ondansetron ODT (Zofran-ODT) disintegrating tablet 4 mgJump to med 4 mg, Oral, Every 8 hours PRN, nausea, vomiting, Starting on Thu03/25/23 at 1150, Recovery & On Unit, 1st Line. If inadequate response within 60 minutes, proceed to next-line agent or contact provider if no further options ordered. Patient should allow tablet to dissolve on tongue. Do not remove from blister pack until just before administering. Or ondansetron (Zofran) injection 4 mgJump to med 4 mg, IntraVENous, Every 6 hours PRN, nausea, vomiting, Starting on Thu03/25/23 at 1150, Recovery & On Unit, 1st Line. Give IV if patient is unable to take orally. If inadequate response within 60 minutes, proceed to next-line agent or contact provider if no further options ordered. Group 4: oxyCODONE (Roxicodone) immediate release tablet 5 mgJump to med 5 mg, Oral, Every 6 hours PRN, severe pain (7-10), Starting on Thu03/31/23 at 0642 Group 5: potassium chloride IVPB 20 mEqJump to med 20 mEq, IntraVENous, at 50 mL/hr, Administer over 1 Hours, 3 times daily PRN, hypokalemia, Starting on Thu03/25/23 at 1150, Recovery & On Unit, For Central Line Use Only K Lab Replacement Action 3.1-3.5 20 mEq IVPB x 1 doses 2.7-3.0 20 mEq IVPB x 2 doses (40 mEq Total) less than 2.7 CALL PROVIDER and administer 20 mEq IVPB x 2 doses (40 mEq Total) Infuse at 20 mEq/hr Repeat Potassium lab 1 hour after final administration. Protocol not for use in Patients with CrCl less than 30mL/min For central line administration only. Or potassium chloride 20 mEq in sodium chloride 0.9 % 250 mL IVPBJump to med 20 mEq, IntraVENous, at 130 mL/hr, Administer over 2 Hours, Every 8 hours PRN, hypokalemia, Starting on Thu03/25/23 at 1150, Recovery & On Unit, For Peripheral Line Use K Lab Replacement Action 3.1-3.5 20 mEq IVPB x 1 doses 2.7-3.0 40 mEq IVPB x 1 doses less than 2.7 CALL PROVIDER and administer 40 mEq IVPB x 1 dose Infuse at 10 mEq/hr Repeat Potassium lab 1 hour after administration. Protocol not for use in Patients with CrCl less than 30mL/min Or potassium chloride 40 mEq in NS 500 mL IVPB (premix)Jump to med 40 mEq, IntraVENous, at 125 mL/hr, Administer over 4 Hours, 3 times daily PRN, hypokalemia, Starting on Thu03/25/23 at 1150, Recovery & On Unit, For Peripheral Line Use. K Lab Replacement Action 3.1-3.5 20 mEq IVPB x 1 doses 2.7-3.0 40 mEq IVPB x 1 doses less than 2.7 CALL PROVIDER and administer 40 mEq IVPB x 1 dose Infuse at 10 mEq/hr Repeat Potassium lab 1 hour after administration. Protocol not for use in Patients with CrCl less than 30mL/min Scheduled Medication Order 05/20/2022 05/21/2022 05/22/2022 acetaminophen (Tylenol) tablet 1,000 mg (COMPLETED) 1,000 mg, Oral, Once, On Thu05/20/22 at 0645, For 1 dose, Preprocedure, Maximum dose of acetaminophen is 4000 mg from all sources in 24 hours. Do not administer if patient has taken tylenol <4 hours earlier. Do not give if contraindicated ie. patient has active liver disease or cirrhosis. 0641 (Given - Provider: Pamella Barnett RN) acetaminophen (Tylenol) tablet 650 mg (CANCELED) 650 mg, Oral, Every 6 hours, First dose on Thu05/20/22 at 1100, Recovery & On Unit, Maximum dose of acetaminophen is 4000 mg from all sources in 24 hours. 1325 (Given - Provider: Priscila Escobar LPN)2000 (Not Given - Provider: Colette Quesada RN - Reason: Patient/family refused)2223 (MAR Hold - Provider: Automatic Transfer Provider - Reason: Patient not available)2300 (Dose Auto Held - Provider: Automatic Transfer Provider) 0101 (MAR Unhold - Provider: Automatic Transfer Provider) acetaminophen (Tylenol) tablet 650 mg 650 mg, Oral, Every 6 hours, First dose on Thu05/21/22 at 0115, Phase II/On Unit, Maximum dose of acetaminophen is 4000 mg from all sources in 24 hours. 0115 (Not Given - Provider: Colette Quesada RN - Reason: Patient/family refused)0558 (Given - Provider: Colette Quesada RN)1315 (Not Given - Provider: Zena Chun RN - Reason: Patient/family refused)1907 (Given - Provider: Zena Chun RN) 0115 (Not Given - Provider: Garett Mir RN - Reason: Other - Comment: just gave tylenol with the oxy)0824 (Given - Provider: Irene Tang RN)1351 (Given - Provider: Jeannine Kay)1915 (Canceled Entry - Provider: Automatic Discharge Provider - Comment: Automatically canceled at discontinue of medication order) aspirin EC tablet 81 mg 81 mg, Oral, Daily, First dose on Thu05/20/22 at 1100, Recovery & On Unit, Do not crush, chew, or split. 1100 (Not Given - Provider: Leo Tamayo RN - Reason: Other - Comment: took at home)2223 (JUN Hold - Provider: Automatic Transfer Provider - Reason: Patient not available) 0101 (JUN Unhold - Provider: Automatic Transfer Provider)0831 (Given - Provider: Zena Chun RN) 0824 (Given - Provider: Irene Tang RN) atorvastatin (Lipitor) tablet 80 mg 80 mg, Oral, Nightly, First dose on Thu05/20/22 at 2100, Recovery & On Unit 2100 (Not Given - Provider: Colette Quesada RN - Reason: Patient/family refused)222 (JUN Hold - Provider: Automatic Transfer Provider - Reason: Patient not available) 010 (JUN Unhold - Provider: Automatic Transfer Provider)204 (Given - Provider: Garett Mir RN) ceFAZolin in dextrose 4% (Ancef) IVPB 2,000 mg (COMPLETED) 2,000 mg, IntraVENous, Administer over 30 Minutes, Once, On Thu05/20/22 at 0645, For 1 dose, Preprocedure, Administer within 1 hour prior to incision. Recommend to repeat in 3-4 hours after initial dose if still intra-op. premix bag, Suspected Indication (Select all that apply): Surgical Prophylaxis 0746 (Given - Provider: Johnnie Navas CRNA) cefTRIAXone (Rocephin) 1,000 mg in dextrose 5 % 50 mL IVPB Mini-Bag Plus (COMPLETED) 1,000 mg, IntraVENous, at 100 mL/hr, Administer over 30 Minutes, Every 24 hours, First dose on Thu05/20/22 at 1900, For 1 dose, Mini-Bag Plus bag, Suspected Indication (Select all that apply): Other, Other Abx Indication: s/p bedside procedure 1902 (New Bag - Provider: Jameson Lake RN)1933 (Stopped - Provider: Colette Quesada RN) clopidogrel (Plavix) tablet 75 mg 75 mg, Oral, Daily, First dose on Thu05/20/22 at 1100, Recovery & On Unit 1100 (Not Given - Provider: Leo Tamayo RN - Reason: Other - Comment: took at home)222 (JUN Hold - Provider: Automatic Transfer Provider - Reason: Patient not available) 010 (JUN Unhold - Provider: Automatic Transfer Provider)0831 (Given - Provider: Zena Chun RN) 0824 (Given - Provider: Irene Tang, SHWETA) docusate sodium (Colace) capsule 100 mg 100 mg, Oral, 2 times daily, First dose on Thu05/20/22 at 1100, Recovery & On Unit, Bowel Regimen - for prevention of constipation. 1100 (Not Given - Provider: Priscila Escobar LPN - Reason: Patient/family refused)2100 (Not Given - Provider: Colette Quesada RN - Reason: NPO)2222 (JUN Hold - Provider: Automatic Transfer Provider - Reason: Patient not available) 010 (JUN Unhold - Provider: Automatic Transfer Provider)0831 (Given - Provider: Zena Chun RN)2100 (Not Given - Provider: Garett Mir RN - Reason: Patient/family refused) 0824 (Given - Provider: Irene Tang RN) famotidine (Pepcid) tablet 20 mg (COMPLETED) 20 mg, Oral, Once, On Thu05/20/22 at 0645, For 1 dose, Preprocedure 0641 (Given - Provider: Pamella Barnett RN) gabapentin (Neurontin) capsule 100 mg (COMPLETED) 100 mg, Oral, Once, On Thu05/20/22 at 0645, For 1 dose, Preprocedure, For Age >69 or Low GFR. 0641 (Given - Provider: Pamella Barnett RN) Continuous Medication Order 05/20/2022 05/21/2022 05/22/2022 lactated Ringer's (LR) infusion (CANCELED) 50 mL/hr, IntraVENous, Continuous, Starting on Thu05/20/22 at 0645, Upon admission to sameday - please start iv if patient does not have iv access. Use 500ml NS for patients on dialysis. 0641 (New Bag - Provider: Pamella Barnett RN)0726 (Continued by Anesthesia - Provider: Johnnie Navas CRNA)0746 (Rate/Dose Change - Provider: Johnnie Navas CRNA)1040 (Stopped - Provider: Johnnie Navas CRNA)2224 (New Bag - Provider: Louis Kitchen APRN - LE)2236 (New Bag - Provider: Louis Kitchen APRN - LE)2338 (Stopped - Provider: Louis Kitchen APRN - LE) sterile water irrigation solution 3,000 mL 3,000 mL, Irrigation, Continuous, Starting on Thu05/20/22 at 1815, CBI: Continuous bladder irrigation, titrate to light pink 181 (New Bag - Provider: Colette Quesada RN) PRN Medication Order 05/20/2022 05/21/2022 05/22/2022 heparin 10,000 Units in sodium chloride 0.9 % 1,000 mL OR irrigation (CANCELED) As needed, Starting on Thu05/20/22 at 1018, Intraprocedure 1018 (Given - Provider: Cesar London MD) hydrALAZINE (Apresoline) injection 10 mg 10 mg, IntraVENous, Every 4 hours PRN, high blood pressure, Starting on Thu05/20/22 at 1307, 2nd line, SBP goal < 150, hold for SBP < 100 2222 (JUN Hold - Provider: Automatic Transfer Provider - Reason: Patient not available) 010 (JUN Unhold - Provider: Automatic Transfer Provider) HYDROmorphone (Dilaudid) injection 0.5 mg (CANCELED) 0.5 mg, IntraVENous, Every 3 hours PRN, severe pain (7-10), Starting on Thu05/20/22 at 1043, Recovery & On Unit, If oral and IV narcotics ordered, use oral first and only use IV if oral is ineffective or cannot take oral. Do Not give oral and IV within 1 hour of each other unless specifically ordered. 1716 (Given - Provider: Leo Tamayo RN)210 (Given - Provider: Colette Quesada RN)222 (JUN Hold - Provider: Automatic Transfer Provider - Reason: Patient not available) 0101 (JUN Unhold - Provider: Automatic Transfer Provider) HYDROmorphone (Dilaudid) injection 0.5 mg 0.5 mg, IntraVENous, Every 3 hours PRN, severe pain (7-10), Starting on Thu05/21/22 at 0103, Post-Delivery, If oral and IV narcotics ordered, use oral first and only use IV if oral is ineffective or cannot take oral. Do Not give oral and IV within 1 hour of each other unless specifically ordered. 0255 (Given - Provider: Colette Quesada RN)0832 (Given - Provider: Zena Chun, SHWETA)1537 (Given - Provider: Zena Chun, SHWETA) hyoscyamine (Levsin) injection 0.25 mg 0.25 mg, IntraVENous, Every 4 hours PRN, bladder spasms, Starting on Thu05/20/22 at 1801 2223 (JUN Hold - Provider: Automatic Transfer Provider - Reason: Patient not available) 010 (JUN Unhold - Provider: Automatic Transfer Provider) iodixanol (VISIPaque) 320 MG/ML injection (COMPLETED) Continuous PRN, Starting on Thu05/20/22 at 1029, Intraprocedure 1029 (New Bag - Provider: Cesar London MD) labetalol (Normodyne,Trandate) injection 10 mg 10 mg, IntraVENous, Every 4 hours PRN, high blood pressure, Starting on Thu05/20/22 at 1308, 1st line, SBP goal < 150, hold for HR < 60, SBP < 100 2223 (JUN Hold - Provider: Automatic Transfer Provider - Reason: Patient not available) 0101 (JUN Unhold - Provider: Automatic Transfer Provider)0255 (Given - Provider: Colette Quesada RN) LORazepam (Ativan) injection 0.5 mg (COMPLETED) 0.5 mg, IntraVENous, Once PRN, for anxiety or muscle spasm., Starting on Thu05/20/22 at 2345, For 1 dose, Recovery (only), For IV doses dilute dose with 1ml NS. 2345 (Given - Provider: Louis Kitchen, DIRECTOR MARKET INTELLIGENCE - [employer])2347 (Given - Provider: Louis Kitchen APRN - [employer]) ondansetron (Zofran) injection 4 mg(Linked Group 1) 4 mg, IntraVENous, Every 6 hours PRN, nausea, vomiting, Starting on Thu05/21/22 at 0107, Recovery & On Unit, 1st Line. Give IV if patient is unable to take orally. If inadequate response within 60 minutes, proceed to next-line agent or contact provider if no further options ordered. ondansetron ODT (Zofran-ODT) disintegrating tablet 4 mg(Linked Group 1) 4 mg, Oral, Every 8 hours PRN, nausea, vomiting, Starting on Thu05/21/22 at 0107, Recovery & On Unit, 1st Line. If inadequate response within 60 minutes, proceed to next-line agent or contact provider if no further options ordered. Patient should allow tablet to dissolve on tongue. Do not remove from blister pack until just before administering. oxyCODONE (Roxicodone) immediate release tablet 5 mg (CANCELED) 5 mg, Oral, Every 4 hours PRN, moderate pain (4-6), Starting on Thu05/21/22 at 0103, Phase II/On Unit 0557 (Given - Provider: Colette Quesada RN)1907 (Given - Provider: Zena Chun RN) oxyCODONE-acetaminophen (Percocet) 5-325 MG per tablet 1 tablet(Linked Group 2) 1 tablet, Oral, Every 4 hours PRN, moderate pain (4-6), Starting on Thu05/21/22 at 2317, Maximum dose of acetaminophen is 4000 mg from all sources in 24 hours. 2335 (See Alternative - Provider: Garett Mir RN) 1007 (See Alternative - Provider: Irene Tang RN) oxyCODONE-acetaminophen (Percocet) 5-325 MG per tablet 2 tablet(Linked Group 2) 2 tablet, Oral, Every 4 hours PRN, severe pain (7-10), Starting on Thu05/21/22 at 2317, Maximum dose of acetaminophen is 4000 mg from all sources in 24 hours. 2335 (Given - Provider: Garett Mir RN) 1007 (Given - Provider: Irene Tang RN) sodium chloride 0.9 % infusion 5-250 mL/hr, IntraVENous, PRN, if patient receiving piggyback infusions and maintenance fluids are not ordered OR KVO fluids to protect IV site / prevent frequent line interruptions/ long duration, Starting on Thu05/20/22 at 1041, Recovery & On Unit, For piggyback infusion, administer at same rate as piggyback for a total of 25 mL. Enter 25 mL into dose field and piggyback rate into rate field of order. If piggyback is infusing at a rate less than 100 mL/hr, enter 25 mL into dose field and 100 mL/hr into rate field of order. For KVO fluids, enter rate of 20 mL/hr or less into rate field of order. 222 ([facility] Hold - Provider: Automatic Transfer Provider - Reason: Patient not available) 100 ([facility] Unhold - Provider: Automatic Transfer Provider) sodium chloride 0.9 % infusion 100 mL/hr, IntraVENous, Administer over 10 Minutes, As needed, TRANSFUSION, Starting on Thu05/20/22 at 2022, For 1 dose, For use in priming line prior to transfusion (prime via gravity) and flush line post transfusion ONLY. Discontinue once line has been cleared of remaining blood product. 2222 ([facility] Hold - Provider: Automatic Transfer Provider - Reason: Patient not available) 100 ([facility] Unhold - Provider: Automatic Transfer Provider) sodium chloride 0.9 % irrigation solution (CANCELED) As needed, Starting on Thu05/20/22 at 2258, Intraprocedure 2258 (Given - Provider: Yaima Romero MD - Comment: Right Groin) sodium chloride 0.9% (NS) flush 10 mL 10 mL, IntraVENous, PRN, line care, Starting on Thu05/20/22 at 1041, Recovery & On Unit, After every IV line use 2222 ([facility] Hold - Provider: Automatic Transfer Provider - Reason: Patient not available) 100 ([facility] Unhold - Provider: Automatic Transfer Provider) sodium chloride 0.9% (NS) flush 10 mL 10 mL, IntraVENous, PRN, line care, Starting on Thu05/21/22 at 0103, Phase II/On Unit, After every IV line use Linked Groups Order Group 1: ondansetron ODT (Zofran-ODT) disintegrating tablet 4 mgJump to med 4 mg, Oral, Every 8 hours PRN, nausea, vomiting, Starting on Thu05/21/22 at 0107, Recovery & On Unit
1st Line. If inadequate response within 60 minutes, proceed to next-line agent or contact provider if no further options ordered. Patient should allow tablet to dissolve on tongue. Do not remove from blister pack until just before administering.
Or ondansetron (Zofran) injection 4 mgJump to med 4 mg, IntraVENous, Every 6 hours PRN, nausea, vomiting, Starting on Thu05/21/22 at 0107, Recovery & On Unit
1st Line. Give IV if patient is unable to take orally. If inadequate response within 60 minutes, proceed to next-line agent or contact provider if no further options ordered.
Group 2: oxyCODONE-acetaminophen (Percocet) 5-325 MG per tablet 1 tabletJump to med 1 tablet, Oral, Every 4 hours PRN, moderate pain (4-6), Starting on Thu05/21/22 at 2317
Maximum dose of acetaminophen is 4000 mg from all sources in 24 hours.
Or oxyCODONE-acetaminophen (Percocet) 5-325 MG per tablet 2 tabletJump to med 2 tablet, Oral, Every 4 hours PRN, severe pain (7-10), Starting on Thu05/21/22 at 2317
Maximum dose of acetaminophen is 4000 mg from all sources in 24 hours.
FOR RECORDS PERTAINING TO PATIENTS WHO ARE OR HAVE BEEN ENROLLED IN A CHEMICAL DEPENDENCY/SUBSTANCEABUSE PROGRAM, SOME INFORMATION MAY BE OMITTED. This clinical summary was aggregated from multiple sources. Caution should be exercised in using it in the provision of clinical care. This summary normalizes information from multiple sources, and as a consequence, information in this document may materially change the coding, format and clinical context of patient data. In addition, data may be omitted in some cases. CLINICAL DECISIONS SHOULD BE BASED ON THE PRIMARY CLINICAL RECORDS. [employer] [facility]. provides no warranty or guarantee of the accuracy or completeness of information in this document.
== END 2024-10-03 16:05 | disposition short-term general hospital (02) ==
PROVIDERS: Emergency Provider Emergency Medicine; PCP Internal Medicine; Visit Provider Emergency Medicine
DX: I62.9 Nontraumatic intracranial hemorrhage, unspecified (principal); I50.9 Heart failure, unspecified; J44.9 Chronic obstructive pulmonary disease, unspecified; I48.91 Unspecified atrial fibrillation; I25.10 Atherosclerotic heart disease of native coronary artery without angina pectoris; Z79.01 Long term (current) use of anticoagulants; E78.5 Hyperlipidemia, unspecified; I25.2 Old myocardial infarction; Z79.899 Other long term (current) drug therapy; Z95.5 Presence of coronary angioplasty implant and graft; F17.210 Nicotine dependence, cigarettes, uncomplicated; V28.49XA Other motorcycle driver injured in noncollision transport accident in traffic accident, initial encounter; Y92.410 Unspecified street and highway as the place of occurrence of the external cause
CPT/HCPCS: 70450; 71260; 72125; 72128; 72131; 73030; 74177; 80053; 82077; 85025; 86850; 86900; 86901; 93005; 96361; 96365; 96368; 96375; 99285; Q9967; A4216; J2405; J7165